=== PATIENT | male | born 1955 | race Caucasian/White ===

== ENCOUNTER → 2018-05-10 | Outpatient (CLI) | payer OTHER ==
[~2018-05-10] MED LIST: DOXY-350 PO; HYDR25TAB PO; VENTAER INH
--- NOTE | 2018-05-10 16:34 | REP ---
Chest two views HISTORY: Shortness of breath Comparison: None Parenchymal density is present in the right lower lobe consistent with atelectasis or infiltrate. Small bilateral pleural effusions are present larger on the left than on the right. The heart is normal in size. The pulmonary vasculature is normal in appearance. The bony structure is intact. IMPRESSION: 1. Right lower lobe atelectasis or infiltrate. 2. Small bilateral pleural effusions.
== END ==
LOC: M CLY 15:52
PROVIDERS: ATTEND Nurse Practitioner Family
DX: J98.11 Atelectasis (principal); J90 Pleural effusion, not elsewhere classified

== ENCOUNTER → 2018-05-11 | Outpatient (REF) | payer OTHER ==
[2018-05-11 18:06] LABS: HEMATOCRIT 37.3 % (42.0-52.0); HEMOGLOBIN 11.4 g/dl (13.5-17.5); MEAN CORPUSCULAR HEMOGLOBIN 23.6 pg (27.0-33.0); MEAN CORPUSCULAR HGB CONC 30.6 g/dl (32.0-36.5); MEAN CORPUSCULAR VOLUME 77.1 fl (80.0-96.0); PLATELET COUNT, AUTOMATED 205 10^3/uL (150-450); RED BLOOD COUNT 4.84 10^6/uL (4.30-6.10)
[2018-05-11 18:12] LABS: ALBUMIN 2.8 GM/DL (3.2-5.2); ALT/SGPT 28 U/L (12-78); BILIRUBIN,TOTAL 0.7 MG/DL (0.2-1.0); BLOOD UREA NITROGEN 11 MG/DL (7-18); CARBON DIOXIDE LEVEL 27 MEQ/L (21-32); CHLORIDE LEVEL 100 MEQ/L (98-107); CHOLESTEROL LEVEL 106 MG/DL (<200); CHOLESTEROL RISK RATIO 5.888 (<5); CREATININE FOR GFR 0.63 MG/DL (0.70-1.30); GLOMERULAR FILTRATION RATE > 60.0 (>49); GLUCOSE, FASTING 105 MG/DL (70-100); HDL CHOLESTEROL 18 MG/DL (>40); LDL CHOLESTEROL 54 MG/DL (<100); NON-HDL-C 88 MG/DL; SODIUM LEVEL 137 MEQ/L (136-145); TOTAL PROTEIN 5.5 GM/DL (6.4-8.2); TRIGLYCERIDES LEVEL 170 MG/DL (<150)
[2018-05-11 18:28] LABS: WHITE BLOOD COUNT 1.4 10^3/uL (4.0-10.0)
[2018-05-11 18:37] LABS: MALB URINE SIEMENS 24.8 MG/L; MAU/CREAT RATIO 11.2 MCG/MG (0.0-30.0)
[2018-05-11 18:40] LABS: HEMOGLOBIN A1c 5.1 %
[2018-05-11 18:58] LABS: ATYPICAL LYMPH 11 % (0-5); BASOPHILS 1 % (0-4); EOSINOPHILS 1 % (0-5); LYMPHOCYTES 1 % (16-52); MONOCYTES 33 % (0-8); NEUTROPHILS 44 % (35-75); PLATELET ESTIMATE NORMAL (NORMAL)
[2018-05-11 18:59] LABS: HYPOCHROMASIA 1+; POLYCHROMASIA 2+
== END ==
LOC: M SFHCCLAY 11:05
PROVIDERS: ATTEND Nurse Practitioner Family
DX: I10 Essential (primary) hypertension (principal); E11.9 Type 2 diabetes mellitus without complications; E78.49 Other hyperlipidemia; R63.4 Abnormal weight loss

== ENCOUNTER 2018-05-19 10:32 | Inpatient (IN) | payer OTHER ==
[2018-05-19] VITALS (16 sets, daily range): BP systolic 101–144; BP diastolic 52–87
[~2018-05-19] VITALS: Ht 157.5 cm; Wt 78.8 kg
[~2018-05-19 10:32] MED LIST changes: -DOXY-350 PO; +HEPARIN SOD (PORCINE) 5000 UNITS/ML VIAL SC SCH; -HYDR25TAB PO; -VENTAER INH
[2018-05-19] MEDS ORDERED: KCL 20MEQ IN D5/NS 1000ML 1,000 ML IV SCH (10:50)
[2018-05-19] MEDS ORDERED: LEVALBUTEROL 1.25 MG/0.5 ML CONCENTRATE NEB NEB PRN (11:00)
[2018-05-19] MEDS ORDERED: ONDANSETRON 4MG/2ML VIAL (J2405) IV PRN (11:00)
[2018-05-19 11:22] LABS: ABG BASE EXCESS 1.6 (-2.0-2.0); ABG O2 SATURATION 93.5 % (95.0-99.0); ABG PARTIAL PRESSURE CO2 35.2 mmHg (35.0-45.0); ABG PARTIAL PRESSURE O2 69.6 mmHg (75.0-100.0); ABG STANDARD HCO3 25.8 MEQ/L (22.0-26.0); ABG TOTAL CO2 26.1 MEQ/L (23.0-31.0); ABG pH (ARTERIAL) 7.469 UNITS (7.350-7.450)
[2018-05-19 11:23] LABS: HEMATOCRIT 39.5 % (42.0-52.0); HEMOGLOBIN 12.2 g/dl (13.5-17.5); MEAN CORPUSCULAR HEMOGLOBIN 23.7 pg (27.0-33.0); MEAN CORPUSCULAR HGB CONC 30.9 g/dl (32.0-36.5); MEAN CORPUSCULAR VOLUME 76.7 fl (80.0-96.0); PLATELET COUNT, AUTOMATED 227 10^3/uL (150-450); RED BLOOD COUNT 5.15 10^6/uL (4.30-6.10)
[2018-05-19] MEDS ORDERED: METOPROLOL 5 MG/5 ML VIAL IV STA (11:24)
[2018-05-19] MEDS ORDERED: METOPROLOL 5 MG/5 ML VIAL As Ordered ONE (11:24)
[2018-05-19] MEDS ORDERED: VENTAER INH (11:29)
[2018-05-19] MEDS ORDERED: HYDR25TAB PO (11:29)
[2018-05-19] MEDS ORDERED: DOXY-350 PO (11:29)
[2018-05-19] MEDS ORDERED: ISOVUE-370 76% 100ML VIAL (Q9967) As Ordered ONE (11:41)
[2018-05-19] MEDS ORDERED: dexameTHASONE 20 MG/5 ML VIAL (J1100) IV ONE (11:45)
[2018-05-19] MEDS ORDERED: D5W/0.45% SODIUM CHLORIDE 1,000 ML IV SCH (11:45)
[2018-05-19 11:50] LABS: ALT/SGPT 22 U/L (12-78); BILIRUBIN,TOTAL 0.8 MG/DL (0.2-1.0); BLOOD UREA NITROGEN 18 MG/DL (7-18); CALCIUM LEVEL 10.7 MG/DL (8.8-10.2); CARBON DIOXIDE LEVEL 25 MEQ/L (21-32); CHLORIDE LEVEL 100 MEQ/L (98-107); CHOLESTEROL LEVEL 96 MG/DL (< 200); CPK CREATINE PHOSPHOKINASE 20 U/L (39-308); CREATININE FOR GFR 0.79 MG/DL (0.70-1.30); FREE THYROXINE INDEX 5.3 % (1.4-3.8); GLOMERULAR FILTRATION RATE > 60.0 (>49); GLUCOSE, FASTING 113 MG/DL (70-100); LDH LACTATE DEHYDROGENASE 320 U/L (87-241); NT-PRO BNP 856 PG/ML (<125); POTASSIUM SERUM 4.8 MEQ/L (3.5-5.1); SODIUM LEVEL 136 MEQ/L (136-145); T UPTAKE 38 % (33-40); THYROID STIMULATING HORMONE 0.043 uIU/ML (0.358-3.740); THYROXINE (T4) 13.9 UG/DL (4.5-12.0); TOTAL PROTEIN 5.6 GM/DL (6.4-8.2); TRIGLYCERIDES LEVEL 144 MG/DL (<150); URIC ACID 7.4 MG/DL (3.5-7.2)
[2018-05-19] MEDS ORDERED: diltiaZEM 125 MG in NS 100 ML IV SCH (12:00)
[2018-05-19] MEDS ORDERED: LIDOCAINE 1% MDV 20ML VIAL As Ordered ONE (12:11)
--- NOTE | 2018-05-19 12:25 | HPE ---
DATE OF ADMISSION: 05/19/2018 Mr. Cabrera is a 63-year-old white male whose medical difficulties began the second the week in April. Prior to that time, he had felt well and, in fact, had left on a road trip from [place] to [place] and then back up the [facility] in order to avoid the cold weather. At the beginning of the second week in April, he started noting that he was having decreased energy and some dyspnea on exertion. He eventually went to a small hospital in [place], [place] ([facility]) where a chest x-ray was done. He was told he had pneumonia. A chest CT scan was also done to rule out PE which showed significant abnormalities that will be dictated below. At that point, he was transferred to the [facility] in [place] where he reports he was seen by a top screw. He had a thoracentesis done on the right side where 2 liters of fluid was drained. He did feel better after the procedure. He was hospitalized 04/27/2018 to 04/30/2018 and was treated with antibiotics in addition to having the thoracentesis. He reports that he had been told by them that the next procedure would likely be bronchoscopy and he thinks that they felt he was going to stay in the area but he decided to drive home because, if any treatment was needed, he would want to undergo that in this area. He had been told that there was a possibility it was lymphoma. Not tool long after his discharge from the hospital, he started noting inspiratory stridor and worsening shortness of breath. He also continued to note weakness. He now feels he can only walk a few feet. He started having difficulties eating as he gags on any food. He has, therefore, started eating a soft diet consisting of substances like yogurt and applesauce. It is difficult to tell whether he has had any weight loss as he had weighed over 200 pounds 3 months ago, but then went on a "water diet" in an attempt to intentionally lose weight. He has had no night sweats. He cannot lie flat in bed but he can tolerate lying on his left side. No lower extremity edema. No history of deep venous thrombosis. No fevers or chills. Henrik has felt so weak that he got a cane from his [id number] and has been using it this past week. Just this week he was contacted by them and told that the pleural fluid was nondiagnostic. PAST MEDICAL HISTORY: 1. Hypertension. 2. Diabetes mellitus type 2. 3. History of pipe/cigar usage. MEDICATIONS: - thiazide 25 mg by mouth daily - Ventolin MDI two puffs every 4 hour as needed - doxycycline 100 mg by mouth twice a day ALLERGIES: No known drug allergies. FAMILY HISTORY: His mother at age 74 of emphysema. She was a smoker. His father is not alive. He does not know of any significant medical history that his father had. He has a 62-year-old sister with no significant medical problems. SOCIAL HISTORY: Henrik is a former smoker having smoked a little over five pipes or cigars a day for 11 years. He quit in October of 2016. He does not chew tobacco. No street drug use history. He does not drink alcohol. He lives alone. He has no pets; his dogs a couple of years ago. 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 No known exposure to pulmonary toxins such as dust, gas, fumes, or asbestos. REVIEW OF SYSTEMS: Notable for weight loss that is at least, in part, volitional but may also have a nonvolitional part. No fevers, chills, weight gain or night sweats. HEENT: Notable for stridor for the past 3 weeks. Denies rhinitis, sinus difficulties or postnasal drip. Denies frequent sore throats or hoarseness. No hearing or visual complaints. CARDIOVASCULAR: Notable for inability to lie flat but he can lie on his left side. Denies chest pain or pressure. No history of frequent palpitations. Denies orthopnea or paroxysmal nocturnal dyspnea (PND). PULMONARY: History per present illness (HPI). GI: Denies nausea, emesis, abdominal pain, or change in bowel habits. No history of significant reflux disease. He has recently noted difficulty swallowing. : Notable for nocturia. ENDOCRINE: Denies intolerance to heat or cold. No significant or unusual hair loss. HEMATOLOGIC: Denies bleeding disorder, clotting disorder or easy bruisability. No history of deep venous thrombosis (DVT) or pulmonary embolus (PE). NEUROLOGIC: Notable for lack of energy. Denies history of seizure or stroke. DERMATOLOGIC: No history of eczema, psoriasis or significant rash. New scalp lesions. PSYCHIATRIC: Per the past medical history, otherwise, no established diagnosis. ALLERGIES/IMMUNOLOGY: No known environmental allergies. MUSCULOSKELETAL: Notable for recent use of cane. Denies myalgias, arthralgias or joint swelling. Denies lower extremity edema. PHYSICAL EXAMINATION: GENERAL: Henrik is sitting on the examination room chair in mild respiratory distress. He appears well-developed, well-nourished. He can only complete short word sentences. He coughs on occasion throughout the evaluation. Affect is appropriate. He can move slowly to the examination room table. Perhaps a slight facial droop on the left. VITAL SIGNS: BP: 124/74 Pulse: 130 O2SatR: 96ra Ht: 61.25" 5'1.25" Wt: 175lb HEENT: Anicteric. Nares: Patent bilaterally. No turbinate edema or discharge. Normal nasal mucosa. Septum appears midline. Oropharynx: Clear, no lesions. No evidence of drainage in the posterior pharynx. Mallampati I. Face is normal. Moist mucosa. Normal dentition. Gums are free of disease. NECK: Supple. Without thyromegaly or masses. Trachea is midline. LYMPHS: No significant cervical or supraclavicular lymphadenopathy. CHEST: Normal size and shape. LUNGS: Symmetric excursion. Mildly diminished air entry. No wheeze or crackles and tidal excursion with scattered end expiratory wheezes forced maneuver. There were inspiratory rhonchi on tidal excursion. Normal I:E with prolongation on forced maneuver. No accessory muscle use or retractions. Absent breath sounds at the bases bilaterally with dullness to percussion over those areas. CARDIOVASCULAR: Tachycardic with a normal S1 and S2. No murmur, rub or gallop appreciated. ABDOMEN: Normoactive bowel sounds. Soft, nontender, nondistended. No hepatosplenomegaly or masses are appreciated on suboptimal examination done in a sitting position. EXTREMITIES: No clubbing, cyanosis or edema. No calf tenderness. Palpable pedal pulses bilaterally. MUSCULOSKELETAL: He ambulated slowly with a cane and exhibits muscle strength and tone. SKIN: He has a scalp rash /lesions. No other obvious rashes on extremities or face. NEUROLOGIC: Alert, awake and oriented times three. LABORATORY DATA: Spirometry: Spirometry obtained today to objectively evaluate lung mechanics in a person with an abnormal chest CT scan and shortness of breath showed a nonspecific decrease in FVC with an FVC of 1.48 liters (44%), and a FEV1 of 1.07 liters (42%). FEV1/FVC ration was normal at 72%. I was unable to comment on his inspiratory flow volume loop. However, looking at several blows, the inspiratory loop was not plateaued. I reviewed his chest x-ray as well as the report from 05/10/2018. That x-ray showed normal appearing cardiac silhouette and pulmonary vascular shadows. There appeared to be hilar adenopathy. There are bilateral small pleural effusions. Perhaps some right-sided atelectasis. What is most concerning is a narrowing of the trachea near the anshu that appears to be extrinsic. 1. His chest CT report from [facility] on 04/27/2018 states there is large bulky conglomerate lymph nodes in the mediastinum and superior abdomen, with otherwise, bulky lymphadenopathy throughout the chest, abdomen, and pelvis, highly concerning for malignancy such as lymphoma or metastatic disease. 2. Mass-like soft tissue density in the lower trachea and proximal bronchi, which could represent involvement by lymphoma or an endobronchial malignancy. 3. Moderate right and small left pleural effusions with adjacent massive atelectasis. The right pleural effusion is somewhat loculated. Superimposed pneumonia in the atelectatic lung cannot be excluded. IMPRESSION: 1. Stridor and likely extensive compression of the trachea: He has a high risk airway. 2. Other nonspecific abnormal findings of the lung field. Based on the description, findings are very concerning for a lymphoma or other metastatic malignancy. 3. Dyspnea: This is likely secondary to the narrowed trachea and lymphadenopathy in the chest. 4. Cough: I suspect this is secondary to extrinsic compression of his airway. 5. Weakness: This is likely related to the systemic process that is causing his adenopathy. 6. Personal history of nicotine dependence. He has an 11-year history of cigar and pipe usage. RECOMMENDATION: 1. It was apparent that this was an emergent admission to the hospital. 2. I discussed Mr. Cabrera with Dr. Shah who graciously saw him in clinic and agreed he needed an emergent admission. 3. Mr. Cabrera will be admitted to the intensive care unit. 4. There is concern that this is secondary to lymphoma and that he will need emergent chemotherapy which we cannot provide. However, it is not felt that his airway was stable enough to transfer him, at this point, to [place]. PATT
--- NOTE | 2018-05-19 12:45 | REP ---
CT STUDY OF THE CHEST WITH IV CONTRAST: HISTORY: Stridorous breathing. Tracheal compression on chest x-ray. Comparison is made with chest x-ray from May 10, 2018. CT CONTRAST DOSE: 100 mL of intravenous Isovue [address] FINDINGS: There are bilateral pleural effusions. These are small to moderate in size. There is fairly bulky mediastinal lymphadenopathy. This is most pronounced in the middle mediastinum and nearly surrounds the trachea producing extrinsic narrowing. The tracheal air column is further narrowed by the presence of moderate mural thickening along the anterior and anterolateral eubanks of the trachea above the anshu. This process extends in the anterior wall of the mainstem bronchi bilaterally and these airways are somewhat narrowed as well. There is bulky subcarinal lymphadenopathy. Anterior mediastinal and AP window region lymphadenopathy is seen. The largest juanito area in the mediastinum as in the subcarinal region where there is 6 x 4 cm juanito mass. There is extensive vascular calcification along the course of the left coronary artery. There is also bilateral supraclavicular lymphadenopathy. There is mild axillary lymphadenopathy on the left. No bony destructive lesion is seen. There is retrocrural and upper abdominal lymphadenopathy. No pericardial effusion is seen. IMPRESSION: Bulky malignant-appearing lymphadenopathy in the middle mediastinum producing extrinsic narrowing of the trachea, which is compounded by involvement of the tracheal and central bronchial eubanks being infiltrated and thickened as well. There are small to moderate bilateral pleural effusions. Extrathoracic adenopathy is seen as well. Findings were reviewed at the workstation with the referring provider Dr. Shah at the time of the study. Electronically Signed by Gamaliel Yan MD 05/19/2018 06:05 P
[2018-05-19 12:48] LABS: ATYPICAL LYMPH 2 % (0-5); BASOPHILS 2 % (0-4); EOSINOPHILS 2 % (0-5); LYMPHOCYTES 9 % (16-52); MONOCYTES 50 % (0-8); NEUTROPHILS 31 % (35-75)
[2018-05-19 12:49] LABS: GIANT PLATELETS 1+; MICROCYTOSIS 1+; PLATELET ESTIMATE NORMAL (NORMAL); POLYCHROMASIA 1+
--- NOTE | 2018-05-19 12:50 | REP ---
CT ABDOMEN AND PELVIS WITH IV BUT WITHOUT ORAL CONTRAST: HISTORY: Question lymphoma. Left inguinal adenopathy. Adenopathy in the chest with stridorous breathing and tracheal narrowing on radiographs. CT CONTRAST DOSE: 100 mL of intravenous Isovue 370. No comparison study. CT FINDINGS: Moderate bilateral pleural effusions. There is widespread adenopathy including adenopathy in the epicardial fat and retrocrural lymphadenopathy. There is very bulky confluent adenopathy in the celiac axis region of the upper abdomen centrally measuring up to 8.4 cm in greatest transverse dimension. This adenopathy is contiguous with the medial wall of the upper stomach and the posterior aspect of the left lobe of the liver. There is a small right adrenal nodule. There is left periaortic lymphadenopathy. No definite pancreatic involvement. Gallbladder is unremarkable. There is streaky fibrosis in the retroperitoneal fat to posterior to the descending duodenum. The appendix is seen in Morison's pouch next to the duodenum and medial to the liver but it is not inflamed or abnormal. No renal mass lesion or hydronephrosis is seen. The spleen is enlarged measuring 14.8 cm in greatest dimension. No focal splenic lesion is seen. There is edema and/or fluid along Gerota's fascia and in the pericolic gutters bilaterally. There is a tumor deposit in the left iliac fossa of which measures 3.3 cm in greatest diameter. No other obvious significant peritoneal implants. A small quantity of fluid is visible in the pelvic reflections. Prostate and seminal vesicles and urinary bladder are unremarkable. There are innumerable subcutaneous nodules in the extra abdominal soft tissue with multiple musculoskeletal nodules along the left flank. These are compatible with soft tissue metastases. There is adenopathy in the left groin. The largest left groin lymph node measures 3.3 cm. No bony destructive lesion is seen. IMPRESSION: There is bulky celiac axis and retroperitoneal lymphadenopathy. Minimal ascites. Left periaortic and left iliac fossa adenopathy. There are widespread subcutaneous metastatic nodules and some intramuscular nodules are seen in the left flank. The spleen is enlarged and homogeneous. Principal differential possibilities include advanced lymphoma, small cell carcinoma, or widespread metastatic carcinoma. Electronically Signed by Gamaliel Yan MD 05/19/2018 06:06 P
[2018-05-19 12:54] LABS: CK-MB VALUE MASS < 1.0 NG/ML (<3.6); TROPONIN I < 0.02 NG/ML (< 0.10)
[2018-05-19] MEDS ORDERED: LEVALBUTEROL 1.25 MG/0.5 ML CONCENTRATE NEB NEB SCH (14:00)
[2018-05-19] MEDS ORDERED: ALLOPURINOL 100 MG TAB PO SCH (14:00)
--- NOTE | 2018-05-19 14:09 | REP ---
Duplex extremity venous ultrasound: Bilateral lower extremities. History: Leg swelling. Question DVT. Findings: The deep veins are anechoic and fully compressible from the groin to the popliteal fossa in the left and right lower extremity. Color flow imaging is homogeneous. Spectral Doppler interrogation demonstrates intact respiratory variation in flow and normal manual augmentation of flow. There is no evidence of deep vein thrombosis. Impression: Negative bilateral lower extremity duplex venous ultrasound. No evidence of deep vein thrombosis. Multiple hypoechoic nodules are seen in the subcutaneous fat bilaterally. This corresponds to the CT findings of metastatic subcutaneous nodules. Electronically Signed by Gamaliel Yan MD 05/19/2018 01:59 P
[2018-05-19] MEDS ORDERED: NS 1,000 ML IV SCH (14:45)
--- NOTE | 2018-05-19 16:38 | CR ---
DATE OF INPATIENT CONSULTATION: 05/19/2018 REASON FOR CONSULTATION: Diagnosis of lymphoma. HISTORY: Patient was admitted on 05/19/2018. This is a very pleasant 63-year-old male who had originally been seen in a satellite Hospital in [place], [place]. The patient had been complaining of not feeling well, lethargic and began to notice that he became short of breath. He had gone into the emergency room, was initially diagnosed as pneumonia but followup CT scan had shown a pleural effusion. The patient states that he had it tapped off and that the doctors there had recommended that he stay for further diagnostic procedures, biopsies. At this time, the patient stated that he was only on a trip to [place] and that he preferred to come back home to [place] especially since the weather had given him a window to do so. He arrived here at [facility] emergency room feeling incredibly shortness of breath, weak, fatigued. A chest CT was done in the emergency room with concern for possible pulmonary embolism. At that time, the patient had shown bulky lymphadenopathy in the middle mediastinum producing narrowing of the trachea. The central bronchial eubanks being infiltrated and thickened as well and small to moderate bilateral pleural effusions. The patient had also shown extrathoracic lymphadenopathy. The patient showed bilateral supraclavicular lymphadenopathy as well as mild axillary. No bony destruction was noted. There was also retrocrural and upper abdominal lymphadenopathy. Concern was for aggressive lymphoma. CT scan of the abdomen and pelvis had shown innumerable subcutaneous nodules in the abdominal soft tissue with multiple musculoskeletal nodules on the left flank. Adenopathy in the left groin with left groin measuring 3 x 3 cm. No bony lesions. His bulky celiac axis and retroperitoneal lymphadenopathy, left periaortic and left iliac fossa and widespread subcutaneous metastatic nodules and some intramuscular nodules were seen on the left flank. The spleen is enlarged and homogeneous. PAST MEDICAL HISTORY: Includes essential hypertension, type 2 diabetes. CURRENT MEDICATIONS: - Dyazide 25 mg by mouth daily - Ventolin 2 puffs by mouth every 4 hour as needed - doxycycline 100 mg by mouth twice a day ALLERGIES: No known drug allergies. FAMILY HISTORY: Mother at the age of 74 due to COPD. Father is . He has one sister with no health problems. SOCIAL HISTORY: He is currently a former smoker. Stopped in 2017. Was a pipe and cigar smoker. Negative for EtOH. 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 No occupational exposures. REVIEW OF SYSTEMS: He states that he has been getting some weight loss over the past few weeks; that he began to feel weak, tired and that his legs became very rubbery. He denies any night sweats. No postprandial fullness. And began to develop on the skin, several nodules, predominantly in the scalp. He states that he has had some skin lesions on the lower extremities but those were present for about 5 years. The areas in the scalp had cropped up over the past week. HEENT: He does have glasses for correction of vision. He denies any history of any rhinitis, sinusitis or postnasal drip. Chest: He has had increasing shortness of breath and dyspnea on exertion. Cardiovascular: He states that he was unable to lie flat. No hemoptysis. No signs of any sputum or phlegm production. GI: Negative for nausea, vomiting, diarrhea, constipation, change in color or caliber of his stool. : No CVA tenderness. Endocrine: No heat or cold intolerance or tremor problems. He has had no history of any bleeding disorders. PHYSICAL EXAMINATION: The patient has an ECOG of about 2-3 over 4. Weight is 78 kg. Height is 157 cm. BSA is 1.89, BMI is 3.18. BSA is 1.89 cm. Pulse is 114, respiratory rate is about 22, BP is 143/85, pulse oximetry is 97. He has a temperature of 98.8. HEENT: Normocephalic and atraumatic. PERRL. EOMI. Sclerae is white, nonicteric. Oropharynx is otherwise clear. Neck: Some shotty adenopathy. Chest: Decreased breath sounds at the bases. Cardiovascular: S1, S2 appreciated with no murmurs. His abdomen is minimally globoid, no freely flowing ascites. No hepatosplenomegaly appreciated. Extremities: Show no cyanosis, no clubbing or any edema. He has supraclavicular area. No shoddy adenopathy is appreciated. Skin: On his skin lesions, the patient has in the scalp area multiple lesions with heaped up nodular-like throughout the entire his scalp area abutting up and extending into the hairline anteriorly. The patient has alopecia areata. He has no sign of any skin lesions on the trunk, neck, anterior chest. He has small scab like lesions on the lower extremities, but no signs of any purpura or uticaria. The skin lesions that are nodular and tumor-like do not abigail on pressure. LABORATORY: On his laboratory examinations, his sodium is 136, potassium is 4.8, chloride 100, CO2 25, BUN of 18, creatinine 0.79, fasting glucose 113, uric acid 7.4, calcium 10.7, phosphorus of 4, total bilirubin is 0.8, AST of 35, ALT 22, alkaline phosphatase 123, LDH of 320, albumin is 3.0, triglycerides of 144, cholesterol 96, TSH is 0.043, T4 is 5.3 and thyroxine is 13.9. T3 uptake is 38. On the hematology, WBC count is 1, hemoglobin is 12.2 over 39.5, MCV of 76.7, RDW of 18.1, platelets of 227 and neutrophils 31, lymphocytes are 9, monocytes are 50. Pathology: Fine needle aspiration of the lymph node was done with preliminary report showing possible lymphoma. 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 PLAN: The patient needs to be transferred due to multidisciplinary approach that he will need not only for the lymphoma but to monitor for the thyroid as well as to avoid tumor lysis syndrome with renal manifestations. A typification of the lymphoma will need to be done. The patient in the meantime will be given allopurinol. Rasburicase is not available on our hospital formulary as of yet. Patient at this particular junction is stable for transfer and we would be more than happy to follow this gentleman on an outpatient basis when his condition becomes stabilized. Flow cytometry, cytogenetics, bone marrow biopsy will all be done to the transferring institution. The patient had a flow cytometry done on his pleural fluid in [place] which had shown a B-cell lymphoma without any subtype typification or genetic analysis available to us at this time. The patient shows no signs of any renal insufficiency, hypophosphatemia, kalemia, or calcemia currently. LDH is 320 which is up from over 150 from [place].
--- NOTE | 2018-05-19 18:09 | REP ---
ULTRASOUND-GUIDED LEFT GROIN LYMPH NODE BIOPSY Procedure was performed under the direct supervision of Dr. Yan. The patient has a history of a 3.3 cm lymph node in the left groin seen on a previous CT scan performed earlier today. The risks and benefits of the procedure were explained to the patient and informed consent was obtained. The left groin lymph node was localized using ultrasound guidance. The skin was prepped and draped in a sterile fashion. 1% lidocaine was used as a local anesthetic. Using ultrasound guidance a 19/20 gauge coaxial needle biopsy system was inserted and advanced into the lymph node. 11 core biopsy samples were obtained and sent to lab. The patient tolerated the procedure well and there were no immediate complications. Reviewed by MARGARET Kuhn 05/19/2018 04:19 P Electronically Signed by Gamaliel Yan MD 05/19/2018 06:00 P
--- NOTE | 2018-05-19 20:07 | DS.PDOC ---
Discharge Summary General Date of Admission May 19, 2018 at 10:44 Date of Discharge 05/19/18 Discharge Summary PROCEDURES PERFORMED DURING STAY: Lymph node FNA biopsy ADMITTING DIAGNOSES: 1. Diffuse adenopathy DISCHARGE DIAGNOSES: 1. Diffuse adenopathy likely lymphoma COMPLICATIONS/CHIEF COMPLAINT: Tracheal stenosis HISTORY OF PRESENT ILLNESS: 63-year-old white male whose medical difficulties b nathaniel the second the week in April. Prior to that time, he had felt well and, in fact, had left on a road trip from [place] to [place] and then back up the [facility] in order to avoid the cold weather. At the beginning of the second week in April, he started noting that he was having decreased energy and some dyspnea on exertion. He eventually went to a [facility] in [place], [place] ([facility]) where a chest x-ray was done. He was told he had pneumonia. However, they followed that with a chest CT scan which showed significant abnormalities that will be dictated below. At that point, he was transferred to the [facility] in [place] where he reports he was seen by a load blocker. He had a thoracentesis done on the right side where 2 liters of fluid was drained. He did feel better after the procedure. Just this week he was contacted by them and told that the pleural fluid was nondiagnostic but flow cytometry did show atypical lymphocytes concern for possible B cell lymphoma. He was hospitalized 04/27/2018 to 04/30/2018 and was treated with antibiotics in addition to having the thoracentesis. He reports that he had been told by them that the next procedure would likely be bronchoscopy and he thinks that they felt he was going to stay in the area but he decided to drive home because, if any treatment was needed, he would want to undergo that in this area. He had been told that there was a possibility it was lymphoma. Not tool long after his discharge from the hospital, he started noting inspiratory stridor and worsening shortness of breath. He also continued to note weakness. He now feels he can only walk feet. He started having difficulties eating as he gags on any food. He has therefore, started eating a soft diet consisting of substances like yogurt and applesauce. It is difficult to tell whether he has had any weight loss as he had weighed over 200 pounds 3 months ago, but then went on a "water diet" in an attempt to intentionally lose weight. He has had no night sweats. He cannot lie flat in bed but he can tolerate lying on his left side. He has noticed new LE edema, was started on HCTZ by his primary. He also reports a new rash noted on scalp in the past week, non pruritic but tender. No fevers or chills. Henrik has felt so weak that he got a cane from his [id number] and has been using it this past week. HOSPITAL COURSE: Patient was admitted to MICU. He was noted to be tachycardic with heart rate in 150's, he was normotensive, denied any chest pain, palpitations or increased SOB. He was satting 90% on RA. Patient was noted to be going in and out of atrial flutter. Was given metoprolol 2.5mg IVP with improvement in his heart rate to 100-110's. He was placed on nasal cannula supplementation at 2L/min with improvement in O2 sats. He was also started on IVF with normal saline and allopurinol (no rasburicase available) for pretreatment given risk tumor lysis syndrome. He was also given decadron 4mg IV. Patient also had CT chest, abd/pelvis. He then had a US guided left inguinal lymph node FNA biopsy with prelim pathology results consistent with lymphoma. Patient also had LE duplex done which was negative for DVT. DISCHARGE MEDICATIONS: Please see below. ALLERGIES: Please see below. PHYSICAL EXAMINATION ON DISCHARGE: VITAL SIGNS: Please see below. GENERAL: He appears well-developed, well-nourished. 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 HEENT: Anicteric. Nares: Patent bilaterally. No turbinate edema or discharge. Normal nasal mucosa. Septum appears midline. Oropharynx: Clear, no wheezes. No evidence of drainage in the posterior pharynx. Mallampati I. Face is normal. Moist mucosa. Normal dentition. Gums are free of disease. NECK: Supple. Without thyromegaly or masses. Trachea is midline. LYMPHS: Palpable left axillary adenopathy. Palpable right and left inguinal adenopathy, more prominent on the left side. CHEST: Normal size and shape. LUNGS: Symmetric excursion. Mildly diminished air entry. CARDIOVASCULAR: Tachycardic with a normal S1 and S2. No murmur, rub or gallop appreciated. ABDOMEN: Normoactive bowel sounds. Soft, nontender, nondistended. No hepatosplenomegaly EXTREMITIES: Pitting edema bilateral lower extremities with left greater than right MUSCULOSKELETAL: He ambulated slowly with a cane and exhibits muscle strength and tone. SKIN: Erythematous maculopapular rash with some scaling on scalp. NEUROLOGIC: Alert, awake and oriented times three. LABORATORY DATA: Please see below. IMAGING: CT chest- bulky malignant appearing lymphadenopathy in middle mediastinum producing extrinsic narrowing of trachea which is compounded by involvement of the trachea and central bronchial eubanks being infiltrated and thickened. Small to moderate bilateral pleural effusions. No pericardial effusion. Mild left axillary adenopathy. NO thyroid nodules or enlargement. There also appears some dilation of right ventricle CT Abd/pelvis- Bulky celiac axis and retroperitoneal lymphadenopathy. Minimal ascites. Left periaortic and left iliac fossa adenopathy. There are widespread subcutaneous metastatic nodules and some intramuscular nodules in left flank. Spleen is enlarged and homogenous. LE Duplex- negative for DVT bilateral lower extremities from groin to popliteal fossa. PROGNOSIS: Fair ACTIVITY: As tolerated DIET: NPO DISCHARGE PLAN: Patient is a 63 yo male with recent diagnosis of new pleural effusions and diffuse adenopathy in mediastinum and abdomen seen on imaging in [place], s/p therapeutic thoracentesis on the right. He presented with increased DUFFY. CT chest shows tracheal narrowing due to extrinsic compression of bulky mediastinal adenopathy as well as thickening of trachea and central bronchi. Patient had left inguinal lymph node biopsy with prelim pathology consistent with lymphoma. Of note patient also with new onset Atrial flutter and hyperthyro idism with increased BNP and evidence of dilated RV on CT consistent with possible fluid overload possibly secondary to hyperthyroidism. Patient will likely need further evaluation including possible bone marrow biopsy. He was noted to have neutropenia on admission, was placed on isolation. Will need to follow final pathology results and flow cytometry. He will likely need induction chemotherapy for high grade lymphoma which is contributing to some respiratory symptoms from extrinsic compression as well as likely airway involvement. He will need close monitoring and pre-treatment for tumor lysis syndrome. Patient will also need further work-up for his new dx of hyperthyroidism likely contributing to his new atrial flutter and evidence of CHF. He will therefore be transferred to a facility with inpatient oncology unit. DISPOSITION: er To Acute Hosp. DISCHARGE INSTRUCTIONS: 1. Follow-up pathology and flow cytometry results ITEMS TO FOLLOWUP ON ON OUTPATIENT: 1. Follow-up pathology and flow cytometry results 2. Follow-up thyroid binding globulin DISCHARGE CONDITION: Stable TIME SPENT ON DISCHARGE: Greater than 25 minutes. Vital Signs/I&Os Vital Signs Date Time Temp Pulse Resp B/P (MAP) Pulse Ox O2 Delivery O2 Flow Rate FiO2 05/19/18 16:33 98.9 110 24 136/86 (103) 98 Nasal Cannula 3.0 Laboratory Data Labs 24H Laboratory Tests 2 05/19/18 11:06: 05/19/18 11:08: White Blood Count 1.0L, Red Blood Count 5.15, Hemoglobin 12.2L, Hematocrit 39.5L, Mean Corpuscular Volume 76.7L, Mean Corpuscular Hemoglobin 23.7L, Mean Corpuscular Hemoglobin Concent 30.9L, Red Cell Distribution Width 18.1H, Platelet Count 227, Neutrophils # (Auto) , Lymphocytes # (Auto) , Nucleated Red Blood Cells % (auto) 0.0, Neutrophils 31L, Band Neutrophils 4, Lymphocytes (Manual) 9L, Monocytes (Manual) 50H, Eosinophils (Manual) 2, Basophils (Manual) 2, Atypical Lymphocytes 2, Platelet Estimate NORMAL, Giant Platelets 1+, Polychromasia 1+, Microcytosis 1+, Anion Gap 11, Glomerular Filtration Rate > 60.0, Blood Urea Nitrogen 18, Creatinine 0.79, Sodium Level 136, Potassium Level 4.8, Chloride Level 100, Carbon Dioxide Level 25, Calcium Level 10.7H, Phosphorus Level 4.0, Aspartate Amino Transf (AST/SGOT) 35, Alanine Aminotransferase (ALT/SGPT) 22, Lactate Dehydrogenase 320H, Total Creatine Kinase 20L, Alkaline Phosphatase 123H, Total Bilirubin 0.8, Triglycerides Level 144, Cholesterol Level 96, Uric Acid 7.4H, Total Protein 5.6L, Albumin 3.0L, Creatine Kinase MB < 1.0, Creatine Kinase MB Relative Index 5.00H, Troponin I < 0.02, GE-Hsm-J-Type Natriuretic Peptide 856H, Albumin/Globulin Ratio 1.15, Thyroid Stimulating Hormone (TSH) 0.043L, Free Thyroxine Index 5.3H, Thyroxine (T4) 13.9H, Triiodothyronine (T3) Uptake 38 05/19/18 11:15: Blood Gas Bicarbonate Standard 25.8, Arterial Blood pH 7.469H, Arterial Blood Partial Pressure CO2 35.2, Arterial Blood Partial Pressure O2 69.6L, Arterial Blood Total CO2 26.1, Arterial Blood HCO3 25.0, Arterial Blood Base Excess 1.6, Arterial Blood Oxygen Saturation 93.5L CBC/BMP Laboratory Tests 05/19/18 11:08 Red Blood Count 5.15, Mean Corpuscular Volume 76.7 L, Mean Corpuscular Hemoglobin 23.7 L, Mean Corpuscular Hemoglobin Concent 30.9 L, Red Cell Distribution Width 18.1 H, Neutrophils # (Auto) , Lymphocytes # (Auto) , Calcium Level 10.7 H, Phosphorus Level 4.0, Aspartate Amino Transf (AST/SGOT) 35, Alanine Aminotransferase (ALT/SGPT) 22, Lactate Dehydrogenase 320 H, Total Creatine Kinase 20 L, Alkaline Phosphatase 123 H, Total Bilirubin 0.8, Triglycerides Level 144, Cholesterol Level 96, Uric Acid 7.4 H, Total Protein 5.6 L, Albumin 3.0 L Discharge Medications Scheduled PRN Albuterol Sulfate (Ventolin Hfa) 108 Mcg/Act Aer, 2 PUFFS INH Q6H PRN for SHORTNESS OF BREATH, (Reported) Allergies Coded Allergies: No Known Allergies (Unverified , 05/19/18) RICHY QUINTANILLA MD May 19, 2018 20:07
--- NOTE | 2018-05-19 20:30 | ECGEPIP ---
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
--- NOTE | 2018-05-19 20:47 | ECHO ---
DATE OF PROCEDURE:05/19/2018 AGE: 63 GENDER: Male HEIGHT: 62 inches WEIGHT: 175 pounds BODY SURFACE AREA: 1.81 sq m INPATIENT: ICU, room 3206 REFERRING PHYSICIAN: Dr. Mary Hayden INDICATION: Cardiac dysrhythmia. 2D MEASUREMENTS: RV: 2.9 cm LV: 5.1 cm Septum: 1.1 cm Posterior wall: 1.1 cm Aortic root: 3.4 cm LA: 3.2 cm LVEF: 65% DOPPLER MEASUREMENTS: AV: 1.4 m/s LVOT: 1.1 m/s LVOT diameter: 2.0 cm MV-E: 80, A: 60, E/A ratio: 1.4 Early mitral deceleration time: 203 ms PV: 0.95 m/s COMMENTS: Underlying atrial flutter with 2:1 AV response alternating with episodes of sinus rhythm. Intraventricular conduction disturbance. Technically challenging study in light of the patient's body habitus but some diagnostically useful information was still obtained. Normal left ventricular size, wall thickness and wall motion. Normal left atrial size and Doppler assessment of LV diastolic function (when in sinus rhythm). Normal right heart chamber sizes and motion and estimated pulmonary arterial pressure. Normal IVC size at 1.4 cm with normal respiratory collapse against an elevated central venous pressure. Normal-appearing aortic valvular apparatus and leaflet excursion. Normal aortic root size. Normal-appearing mitral valvular apparatus leaflet excursion with no posterior systolic buckling. Normal appearing and functioning tricuspid valve. No apparent intracardiac mass or pericardial effusion.
[2018-06-22] MEDS ORDERED: METO100T5 PO (14:41)
[2018-06-22] MEDS ORDERED: PANT40TA3 PO (14:41)
[2018-06-22] MEDS ORDERED: FURO40TA2 PO (14:41)
[2018-06-22] MEDS ORDERED: DRON40TA PO (14:41)
[2018-06-22] MEDS ORDERED: POTA10CA32 PO (14:41)
[2018-06-22] MEDS ORDERED: ZYLO300T6 PO (14:41)
[2018-06-22] MEDS ORDERED: ONDA8TAB7 PO (15:18)
[2018-06-22] MEDS ORDERED: PRED50TA PO (15:22)
== END 2018-05-19 17:17 | disposition short-term general hospital (02) | DRG 681 ==
LOC: M ICU 10:44
PROVIDERS: ADMIT Thoracic Surgery (Cardiothoracic Vascular Surgery); ATTEND Thoracic Surgery (Cardiothoracic Vascular Surgery)
PROC: 07BJ3ZX Excision of Left Inguinal Lymphatic, Percutaneous Approach, Diagnostic (ICD-10-PCS; principal; 2018-05-19)
DX: C85.90 Non-Hodgkin lymphoma, unspecified, unspecified site (principal); I10 Essential (primary) hypertension; J39.8 Other specified diseases of upper respiratory tract; E11.9 Type 2 diabetes mellitus without complications; Z79.899 Other long term (current) drug therapy; Z87.891 Personal history of nicotine dependence

== ENCOUNTER → 2018-06-20 | Outpatient (REF) | payer OTHER ==
[~2018-06-20] MED LIST changes: +DOXY-350 PO; +DRON40TA PO; +FURO40TA2 PO; -HEPARIN SOD (PORCINE) 5000 UNITS/ML VIAL SC SCH; +HYDR25TAB PO; +METO100T5 PO; +ONDA8TAB7 PO; +PANT40TA3 PO; +POTA10CA32 PO; +PRED50TA PO; +VENTAER INH; +ZYLO300T6 PO
[2018-06-20 12:23] LABS: HEMATOCRIT 34.7 % (42.0-52.0); HEMOGLOBIN 10.5 g/dl (13.5-17.5); MEAN CORPUSCULAR HEMOGLOBIN 24.9 pg (27.0-33.0); MEAN CORPUSCULAR HGB CONC 30.3 g/dl (32.0-36.5); MEAN CORPUSCULAR VOLUME 82.2 fl (80.0-96.0); PLATELET COUNT, AUTOMATED 235 10^3/uL (150-450); RED BLOOD COUNT 4.22 10^6/uL (4.30-6.10); WHITE BLOOD COUNT 5.2 10^3/uL (4.0-10.0)
[2018-06-20 12:50] LABS: ALBUMIN 2.8 GM/DL (3.2-5.2); ALT/SGPT 15 U/L (12-78); BILIRUBIN,TOTAL 0.4 MG/DL (0.2-1.0); BLOOD UREA NITROGEN 11 MG/DL (7-18); CARBON DIOXIDE LEVEL 25 MEQ/L (21-32); CHLORIDE LEVEL 105 MEQ/L (98-107); CREATININE FOR GFR 0.65 MG/DL (0.70-1.30); GLOMERULAR FILTRATION RATE > 60.0 (>49); GLUCOSE, FASTING 127 MG/DL (70-100); MAGNESIUM LEVEL 2.3 MG/DL (1.8-2.4); SODIUM LEVEL 139 MEQ/L (136-145); TOTAL PROTEIN 5.2 GM/DL (6.4-8.2)
== END ==
LOC: M SFHCCLAY 09:50
PROVIDERS: ATTEND Nurse Practitioner Family
DX: I10 Essential (primary) hypertension (principal)

== ENCOUNTER 2018-09-21 08:40 | Inpatient (IN) | payer OTHER ==
[~2018-09-21] VITALS: Ht 157.5 cm; Wt 74.2 kg
[2018-09-21] MEDS ORDERED: LOPR1TAB6 PO (08:48)
[2018-09-21 09:25] LABS: HEMOGLOBIN 8.9 g/dl (13.5-17.5); MEAN CORPUSCULAR HEMOGLOBIN 27.1 pg (27.0-33.0); MEAN CORPUSCULAR HGB CONC 30.7 g/dl (32.0-36.5); MEAN CORPUSCULAR VOLUME 88.4 fl (80.0-96.0); PLATELET COUNT, AUTOMATED 248 10^3/uL (150-450); RED BLOOD COUNT 3.28 10^6/uL (4.30-6.10); WHITE BLOOD COUNT 5.4 10^3/uL (4.0-10.0)
[2018-09-21 09:35] LABS: INR 1.35; PROTHROMBIN TIME 16.9 SECONDS (12.1-14.4)
[2018-09-21 09:53] LABS: LYMPHOCYTES 12 % (16-52); METAMYELOCYTES 3 % (0-0); MONOCYTES 2 % (0-8); MYELOCYTES 2 % (0-0); NEUTROPHILS 76 % (35-75)
[2018-09-21 09:54] LABS: ANISOCYTOSIS 2+; HYPOCHROMASIA 1+; POLYCHROMASIA 1+
[2018-09-21 09:55] LABS: PLATELET ESTIMATE NORMAL (NORMAL)
[2018-09-21 09:57] LABS: ALBUMIN 2.4 GM/DL (3.2-5.2); ALT/SGPT 11 U/L (12-78); BILIRUBIN,DIRECT 0.2 MG/DL (0.0-0.2); BILIRUBIN,TOTAL 0.5 MG/DL (0.2-1.0); BLOOD UREA NITROGEN 21 MG/DL (7-18); CALCIUM LEVEL 7.6 MG/DL (8.8-10.2); CARBON DIOXIDE LEVEL 26 MEQ/L (21-32); CHLORIDE LEVEL 104 MEQ/L (98-107); CPK CREATINE PHOSPHOKINASE 24 U/L (39-308); CREATININE FOR GFR 0.55 MG/DL (0.70-1.30); GLOMERULAR FILTRATION RATE > 60.0 (>49); GLUCOSE, FASTING 105 MG/DL (70-100); MB/CK RELATIVE INDEX 5.83 (< OR =4); NT-PRO BNP 1553 PG/ML (<125); POTASSIUM SERUM 3.9 MEQ/L (3.5-5.1); SODIUM LEVEL 138 MEQ/L (136-145); TOTAL PROTEIN 4.9 GM/DL (6.4-8.2); TROPONIN I 0.03 NG/ML (< 0.10)
[2018-09-21] MEDS ORDERED: FUROSEMIDE 40 MG/4 ML VIAL (J1940) IV ONE (10:00)
[2018-09-21] MEDS ORDERED: ALEV220T22 PO (10:23)
[2018-09-21] MEDS ORDERED: ONDA8TAB7 PO (10:23)
[2018-09-21] MEDS ORDERED: METO100T5 PO (10:23)
[2018-09-21] MEDS ORDERED: ONDANSETRON 4 MG TAB (S0181) PO PRN (10:45)
[2018-09-21] MEDS ORDERED: GLUCAGON FOR INJ 1 MG VIAL (J1610) SC PRN (11:15)
[2018-09-21] MEDS ORDERED: ALBUTEROL 90 MCG/ACT 8GM HFA INHALER INH PRN (11:15)
[2018-09-21] MEDS ORDERED: GLUCOSE 4 GM CHEW TABLET PO PRN (11:15)
[2018-09-21] MEDS ORDERED: DEXTROSE 50% 50 ML SYRINGE IV PRN (11:15)
[2018-09-21] MEDS: HumaLOG INSULIN (NovoLOG) PER UNIT SC SCH ×3 (12:00→20:34)
[2018-09-21] MEDS: FUROSEMIDE 100 MG/10 ML VIAL (J1940) IV SCH ×2 (12:00→18:00)
--- NOTE | 2018-09-21 12:15 | REP ---
CHEST, TWO VIEWS: Two views of the chest are performed and compared to prior study of 05/10/2018. Significant diffuse dense infiltrates are seen throughout the right lung. There is a mild to moderate right effusion. Mild left perihilar infiltrates are seen superiorly and inferiorly. There is a small left pleural effusion. Heart is not significantly enlarged. There are mild degenerative changes of the spine. A right central venous catheter is seen with the tip in the superior vena cava. IMPRESSION: Bilateral infiltrates, much more so on the right side. Bilateral effusions. Electronically Signed by Cisco Fields MD 09/22/2018 10:54 A
--- NOTE | 2018-09-21 13:08 | HPE ---
DATE OF ADMISSION: 09/21/2018 PRIMARY CARE PROVIDER: Justus Woods MD/Nayana Cook NP CHIEF COMPLAINT: Shortness of breath, dyspnea on exertion, exacerbation of congestive heart failure with preserved ejection fraction. HISTORY: Henrik Cabrera is a 63-year-old patient in the [facility], who was sent by Dr. Waldron, his oncologist, to the emergency room for heart failure. The patient has been having dyspnea on exertion, progressively worse over the last week to the point where he can barely walk in a room without having to stop to catch his breath. He has had increasing lower extremity edema. 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 He has a cardiologic history of paroxysmal atrial fibrillation. He was converted to sinus rhythm on a combination of Multaq and metoprolol. He had an implanted loop recorder inserted 08/29/2018 at [facility]. He is chronically borderline hypotensive. His blood pressures per his most recent cardiology note (Dr. Arellano 07/27/2018) shows his blood pressure is usually around 100/50. His last echocardiogram was from May 2018. He had preserved ejection fraction and 1+ mitral regurgitation. He denies any chest pain or syncope. He denies any palpitations. No rectal bleeding, hematemesis. No fever or chills. Other past medical history shows hypertension, type 2 diabetes. He has a surgical history of a circumcision, inguinal lymph node biopsy, and renal stone surgery. He had a thoracentesis April 2018. He had 2 liters of fluid removed from his right chest cavity. He has a Port-a-Cath in his right chest 2019. FAMILY HISTORY: Is negative for hypertension, diabetes, heart disease. SOCIAL HISTORY: He used to smoke a pipe and cigar. No longer smokes. No alcohol intake. Retired. ALLERGIES: None known. MEDICATIONS: - Multaq 400 mg twice a day - mg daily - albuterol inhaler - Lasix 40 mg twice a day - metoprolol 100 mg twice a day - Zofran 8 mg three times a day - Protonix 40 mg daily - potassium chloride 10 mEq daily - He takes prednisone as part of his chemotherapy regimen. REVIEW OF SYSTEMS: As above. Otherwise negative. PHYSICAL EXAMINATION: Vital signs per emergency room (ER) flow sheet. Systolic pressure is 90-100. General appearance: He looks actually fairly spry. He is standing up in the examination room to void without lightheadedness or dizziness. He looks chronically ill. Pupils equal, round, and react to light and accommodation. Tympanic membranes normal. Pharynx benign. Neck: No masses. Jugular venous distention (JVD) is present. Lungs: Have rales, right greater than left. Heart: Regular rate and rhythm. 1/6 holosystolic murmur at the apex. Abdomen: Soft, nontender, no masses. 1+ peripheral edema. No clubbing or cyanosis. Decreased pulses in his feet. LABORATORIES: Chest x-ray showed bilateral fluffy infiltrates but more on the right than the left, primary alveolar consistent with congestive heart failure (CHF). Electrolytes unremarkable. Creatinine 0.5, BNP 1553, troponin is low. White count 5.4, hemoglobin 8.9, platelets 248. I reviewed his electrocardiogram (EKG). It showed no change from previous. IMPRESSION: 1. Congestive heart failure with preserved ejection fraction. He has had dramatic decline in exercise tolerance over the last week. I will repeat his echocardiogram to make sure there has not been some silent ischemia leading to a change in his ejection fraction from May. He will be admitted to a progressive care unit (PCU) bed. I have ordered Lasix on a sliding scale to maintain diuresis at 1200 mL per day. Continue his metoprolol 100 mg twice a day and his Multaq 400 mg twice a day. Daily laboratory work has been ordered. Followup potassium and check his magnesium tomorrow. 2. History of paroxysmal atrial fibrillation. Continue Multaq. Continue beta braden therapy. Telemetry has been ordered. Thyroid-stimulating hormone (TSH) was normal. 3. Diabetes. Sliding scale insulin based upon fingerstick blood sugars. 4. Question of asthma. Albuterol ordered on a as needed basis. Will put a consultation in for Dr. Arellano at the patient's request. I have also ordered a repeat echocardiogram.
[2018-09-21 13:55] VITALS: BP 103/67
[2018-09-21] MEDS: ENOXAPARIN 40 MG/0.4 ML SYRINGE (J1650) SC SCH (14:29)
[2018-09-21] MEDS: POTASSIUM CHLORIDE 10 MEQ SR TABLET PO SCH ×2 (14:30→20:57)
[2018-09-21] MEDS ORDERED: SLF 3 ML SYR IV PRN (14:45)
[2018-09-21 16:00] VITALS: BP 101/67
[2018-09-21] MEDS: DRONEDARONE 400 MG TAB (MULTAQ) PO SCH (17:48)
[2018-09-21 20:00] VITALS: BP 104/63
[2018-09-21] MEDS: METOPROLOL TART 25 MG TABLET PO SCH (20:57)
[2018-09-21] MEDS: SLF 3 ML SYR IV SCH (20:57)
[2018-09-21] MEDS ORDERED: METOPROLOL TARTRATE 100 MG TAB PO SCH (21:00)
[2018-09-21 23:59] VITALS: BP 98/57
[2018-09-22] VITALS (7 sets, daily range): BP systolic 86–117; BP diastolic 17–70
[2018-09-22] MEDS: FUROSEMIDE 100 MG/10 ML VIAL (J1940) IV SCH ×4 (00:58→18:00)
[2018-09-22] MEDS: METOPROLOL TART 25 MG TABLET PO SCH ×4 (04:53→21:27)
[2018-09-22 05:20] LABS: HEMATOCRIT 30.7 % (42.0-52.0); HEMOGLOBIN 9.2 g/dl (13.5-17.5); MEAN CORPUSCULAR HEMOGLOBIN 25.8 pg (27.0-33.0); PLATELET COUNT, AUTOMATED 265 10^3/uL (150-450); RED BLOOD COUNT 3.57 10^6/uL (4.30-6.10); WHITE BLOOD COUNT 4.7 10^3/uL (4.0-10.0)
[2018-09-22 05:38] LABS: BLOOD UREA NITROGEN 18 MG/DL (7-18); CALCIUM LEVEL 8.3 MG/DL (8.8-10.2); CARBON DIOXIDE LEVEL 25 MEQ/L (21-32); CHLORIDE LEVEL 102 MEQ/L (98-107); CREATININE FOR GFR 0.69 MG/DL (0.70-1.30); GLOMERULAR FILTRATION RATE > 60.0 (>49); GLUCOSE, FASTING 105 MG/DL (70-100); MAGNESIUM LEVEL 1.9 MG/DL (1.8-2.4); SODIUM LEVEL 137 MEQ/L (136-145)
[2018-09-22] MEDS: SLF 3 ML SYR IV SCH ×3 (06:06→21:27)
--- NOTE | 2018-09-22 07:17 | ECGEPIP ---
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
[2018-09-22] MEDS: ENOXAPARIN 40 MG/0.4 ML SYRINGE (J1650) SC SCH (08:44)
[2018-09-22] MEDS: HumaLOG INSULIN (NovoLOG) PER UNIT SC SCH ×4 (08:44→20:06)
[2018-09-22] MEDS: DRONEDARONE 400 MG TAB (MULTAQ) PO SCH ×2 (08:45→18:12)
[2018-09-22] MEDS: POTASSIUM CHLORIDE 10 MEQ SR TABLET PO SCH ×2 (08:45→20:10)
--- NOTE | 2018-09-22 09:25 | ECHO ---
DATE OF PROCEDURE: 09/21/2018 AGE: 63 REFERRING PHYSICIAN: Dr. Dorian Mar PATIENT LOCATION: Room 3229 REASON FOR THE CARDIOGRAM: Edema. 2D MEASUREMENTS: IVS 1.3 cm LV 4.0 cm LVPW 1.3 cm Aorta 3.6 cm LA 3.2 cm IVC 1.4 cm DOPPLER MEASUREMENT: Peak velocity across the aortic valve 1.6 m/s Peak velocity across the LVOT is 0.81 m/s Mitral E 0.74 Mitral A 1.1 with a ration of 0.7 Maximum tricuspid valve velocity 3.4 m/s 2D COMMENTS: 1. Normal left ventricular size with mildly increased left ventricular wall thickness. Left ventricular systolic motion is normal, estimated at 60-65%. Normal left atrium. The right atrium and right ventricle appear to be mildly enlarged in limited views. 2. The atrial septum appeared to be normal without evidence of defect or shunt. 3. Normal aortic root. 4. Small pericardial effusion was noted, no evidence of cardiac tamponade. 5. Mildly calcified aortic valve with normal leaflet excursion. Mildly calcified mitral annulus with normal appearing mitral wall leaflet motion. Normal tricuspid valve and pulmonic valve. The proximal pulmonary artery branches were not well preserved. 6. The inferior vena cava was normal in size, Central venous pressure is most likely normal. DOPPLER: It detects trace aortic radiation, trace mitral regurgitation, mild tricuspid regurgitation and trace pulmonic regurgitation. The calculated pulmonary artery systolic pressure varies between 40-50 mmHg. Abnormal relaxation pattern was noted across the mitral valve leaflets as well as the mitral valve annulus consistent with features, grade 1 left ventricular diastolic dysfunction. IMPRESSION: 1. Normal global left ventricular systolic function with mild concentric left ventricular hypertrophy. There is some features of left ventricular diastolic dysfunction manifested by abnormal relaxation. 2. Aortic valve sclerosis without stenosis or aortic regurgitation. 3. Mitral annulus calcification with trace mitral regurgitation. 4. Mild tricuspid regurgitation with probably moderate pulmonary hypertension. The right heart chambers appear to be mildly enlarged in limited views. 5. Small pericardial effusion was noted, no evidence of cardiac tamponade. 6. This was compared with most recent echocardiogram on 05/09/2018, at that time, the right heart chambers appeared to be normal. The patient then was tachycardiac. MTDD
--- NOTE | 2018-09-22 10:01 | CR.PDOC ---
General Date of Consultation: September 22, 2018 Consultation CARDIOLOGY CONSULT NOTE FOR DR. BORJAS HISTORY OF PRESENT ILLNESS: Mr. Cabrera is a 63 y/o male with history non-Hodgkin lymphoma and paroxysmal atrial fibrillation of which he had converted to NSR on his home Multaq and metoprolol. He came to the ED with the complaint of acute SOB that began about three days ago. Worse with ambulation, not so much with laying down flat. He denied any chest pain. He was supposed to get his next round of Chemo therapy but instead was sent from oncology office to the ED due to the worsening SOB. He states that he began receiving chemotherapy in May 2018 for stage IV diffuse B cell lymphoma. He has also noted some b/l LE swelling over the past few days. He does not wear home O2. He feels better today with his breathing, but admits if he got up to walk to the bathroom he would become SOB again. He admits to some diffuse chills the past week or so, however he states he has had no fevers, nausea or vomiting. ALLERGIES: Please see below. HOME MEDICATIONS: Please see below. PAST MEDICAL HISTORY: Includes paroxysmal atrial fibrillation, stage IV diffuse B cell lymphoma. PAST SURGICAL HISTORY: circumcision, renal stone surgery, thoracentesis in 2018, chantell cath in right chest, lymph node biopsy Family History: SOCIAL HISTORY: Used to smoke a pipe and cigars, quit many years ago, no alcohol or drug use REVIEW OF SYSTEMS: CONSTITUTIONAL: he feels SOB but states it is much improved from when he first presented, he is a bit fatigued currently, no other complaints today HEENT: denied change in vision or having a headache CARDIOVASCULAR: no chest pain, no syncope or palpitations RESPIRATORY: he is SOB but improved from admission, no cough or wheezing admitted GENITOURINARY: no difficulty urinating and no pain with urination MUSCULOSKELETAL:he has diffuse muscle aches, but this isn't new for him GASTROINTESTINAL: Denied n/v PHYSICAL EXAMINATION: VITAL SIGNS: Please see below. GENERAL APPEARANCE: This is a 63 yo male sitting in bed, wearing NC O2, he has some conversational dyspnea on exam, mildy uncomfortable appearing but certainly not toxic HEENT: EOMI, moist mucus membranes RESPIRATORY: CTA b/l, no rales, crackles or wheezing appreciated CARDIOVASCULAR: normal s1 and s2, no murmurs, rubs or gallops appreciated ABDOMEN: soft, nabsx4, no hepatosplenomegaly, no masses, no pain to palpation, no rebound, no guarding, no distension, no ridgity EXTREMITIES: b/l +2 edema to level of the knees NEUROLOGICAL: no focal deficits appreciated LABORATORY DATA: Please see below. ASSESSMENT/PLAN: Mr. Cabrera is a 63 yo male who presented to the ED with the complaint of acute onset of SOB. -His telemetry was reviewed as well as his EKG, it is likely that this SOB could be due to recent chemotherapy. Volume overload is certainly possible, he does have signs of this on physical exam. We have personally reviewed his ECHO and it shows a mild diastolic dysfunction with systolic dysfunction grade 1 (largely preserved EF) with an enlarged RV, it is likely he does have pulmonary HTN which could be secondary to a pulmonary process. Trace pericardial effusion. He should be evaluated for possible PE as well. His CXR did show b/l infiltrates this visit, more so on the right side. We will order b/l us of LE to r/o DVT, hold on ordering d-dimer at this point as it is likely to be positive for him. We should entertain the idea that he could have a pulmonary process largely contributing to his current complaints. His BNP was elevated to 1553, which is increased from his levels in May 2018. He is currently being diuresed and we agree with this. He continues on Lopressor and home Multaq. CHEST CT in May 2018 showed bulky lymphadenopathy causing narrowing of the trachea with b/l pleural effusions. There is also an ECHO report in his documents from [facility] from July 2018 that showed normal EF of 60% with mildly dilated L atrium. ECHO in our system from May 2018 showed underlying a. flutter and intraventricular conduction disturbance, normal LV size and wall thickness and motion, normal left atrial size and LV diastolic function with normal right heart chamber sizes and pulmonary artery pressure with normal IVC size with elevated CVP, without intracardiac mass or pericardial effusion. No further recommendations for now, continue current medical plan, we will await results of u/s as stated above. We will continue to follow the patient in the hospital and offer our recommendations as such. Addendum Winsome Borjas MD: Patient seen and examined, chart reviewed. 63yo man undergoing treatment for stage IV lymphoma presents with worsening dyspnea. There is evidence for volume overload but I suspect additional disease process causing dyspnea as well. His ECHO is not typical for exacerbated CHF and CXR reveals asymmetry of findings between R and L lungs. If not responding promptly to diuresis suggest to repeat lung imaging, consider CTA. Vital Signs/I&O Vital Signs Date Time Temp Pulse Resp B/P (MAP) Pulse Ox O2 Delivery O2 Flow Rate FiO2 09/22/18 08:00 96.9 95 18 98/67 (77) 98 4.0 09/21/18 13:41 Nasal Cannula I&O- Last 24 Hours up to 6 AM 09/22/18 06:00 Intake Total 840 ml Output Total 3175 ml Balance -2335 ml Laboratory Data Labs 24H Laboratory Tests 2 09/21/18 17:42: Bedside Glucose (Misc Panel) 89 09/21/18 20:03: Bedside Glucose (Misc Panel) 101 09/22/18 04:48: Nucleated Red Blood Cells % (auto) 0.0, Anion Gap 10, Glomerular Filtration Rate > 60.0, Blood Urea Nitrogen 18, Creatinine 0.69L, Sodium Level 137, Potassium Level 4.0, Chloride Level 102, Carbon Dioxide Level 25, Calcium Level 8.3L, Magnesium Level 1.9 CBC/BMP Laboratory Tests 09/22/18 04:48 Red Blood Count 3.57 L, Mean Corpuscular Volume 86.0, Mean Corpuscular Hemoglobin 25.8 L, Mean Corpuscular Hemoglobin Concent 30.0 L, Red Cell Distribution Width 18.6 H, Calcium Level 8.3 L Microbiology Microbiology 09/21/18 Blood Culture, Received Pending 09/21/18 Blood Culture, Received Pending Allergies Coded Allergies: No Known Allergies (Unverified , 05/19/18) Home Medications Scheduled Dronedarone (Multaq) 400 Mg Tab, 400 MG PO BID, (Reported) Furosemide (Furosemide) 40 Mg Tab, 40 MG PO BID, (Reported) Metoprolol Tartrate (Metoprolol Tartrate) 100 Mg Tablet, 100 MG PO BID, (Reported) Potassium Chloride (Potassium Chloride) 10 Meq Cap, 10 MEQ PO BID, (Reported) Scheduled PRN Albuterol Sulfate (Ventolin Hfa) 108 Mcg/Act Aer, 2 PUFFS INH Q6H PRN for SHORTNESS OF BREATH, (Reported) Naproxen Sodium (Aleve) 220 Mg Tablet, 440 MG PO DAILY PRN for PAIN, (Reported) Ondansetron HCl (Ondansetron HCl) 8 Mg Tablet, 8 MG PO TID PRN for NAUSEA OR VOMITING, (Reported) GME ATTESTATION GME ATTESTATION My faculty preceptor for this patient encounter was physically present during the encounter and was fully available. All aspects of the patient interview, examination, medical decision making process, and medical care plan development were reviewed and approved by the faculty preceptor. The faculty preceptor is aware and concurs with the plan as stated in the body of this note and will attest to such by his/her cosignature. NORMA ROSALES DO September 22, 2018 10:01 Haja Borjas MD September 25, 2018 11:21
--- NOTE | 2018-09-22 10:05 | IPNPDOC ---
Subjective Date Seen The patient was seen on 09/22/18. Subjective Chief Complaint/HPI Pt this morning states that he is feeling a lot better than he was yesterday, his SOB at this time is mostly exertional and he is feeling better when in bed at rest. General: Denies: Fatigue Constitutional: Denies: Chills, Fever Pulmonary: Reports: Dyspnea; Denies: Cough Cardiovascular: Denies: Chest Pain, Palpitations Gastrointestinal: Denies: Nausea, Vomiting, Diarrhea Neurological: Reports: Weakness Psych: Reports: Mood Normal Objective Physical Examination General Exam: Positive: Alert, No Acute Distress ENT Exam: Positive: Mucous membr. moist/pink Chest Exam: Positive: Normal air movement, Rales (Bibasilar) Heart Exam: Positive: Rate Normal, Normal S1, Normal S2 Abdomen Exam: Positive: Normal bowel sounds, Soft; Negative: Tenderness Extremity Exam: Positive: Edema (1 + BLE) Neuro Exam: Positive: Normal Speech Psych Exam: Positive: Mood NL A-FIB/CHADSVASC A-FIB History Current/History of A-Fib/PAF?: No Assessment /Plan Problems (1) Congestive heart failure (CHF) Status: Acute Response to Treatment: Stable, Improving Discussed With: Nurse, Patient Problem Specific Plan: Monitor Clinically, Repeat Labs Problem Text: likely diastolic acute on chronic with preserved EF, has diuresed for a net neg of 1300 cc overnight and is neg this morning at this point as well. He is feeling better, will cont with IV Lasix for a Net Neg fluid balance, anticipate d/c in AM. (2) Large B-cell lymphoma Status: Acute Plan/VTE VTE Prophylaxis Ordered?: Yes VS, I&O, 24H, [facility] Vital Signs/I&O Vital Signs Date Time Temp Pulse Resp B/P (MAP) Pulse Ox O2 Delivery O2 Flow Rate FiO2 09/22/18 08:00 96.9 95 18 98/67 (77) 98 4.0 09/21/18 13:41 Nasal Cannula I&O- Last 24 Hours up to 6 AM 09/22/18 06:00 Intake Total 840 ml Output Total 3175 ml Balance -2335 ml Laboratory Data 24H LABS Laboratory Tests 2 09/21/18 17:42: Bedside Glucose (Misc Panel) 89 09/21/18 20:03: Bedside Glucose (Misc Panel) 101 09/22/18 04:48: Nucleated Red Blood Cells % (auto) 0.0, Anion Gap 10, Glomerular Filtration Rate > 60.0, Blood Urea Nitrogen 18, Creatinine 0.69L, Sodium Level 137, Potassium Level 4.0, Chloride Level 102, Carbon Dioxide Level 25, Calcium Level 8.3L, Magnesium Level 1.9 CBC/BMP Laboratory Tests 09/22/18 04:48 Red Blood Count 3.57 L, Mean Corpuscular Volume 86.0, Mean Corpuscular Hemoglobin 25.8 L, Mean Corpuscular Hemoglobin Concent 30.0 L, Red Cell Distribution Width 18.6 H, Calcium Level 8.3 L Microbiology Microbiology 09/21/18 Blood Culture, Received Pending 09/21/18 Blood Culture - Preliminary, Resulted No growth after 24 hours . All specim... PILY DAVENPORT PA-C September 22, 2018 10:05
--- NOTE | 2018-09-22 10:14 | REP ---
Clinical: Bilateral lower extremity pain . Technique: Fields scale and color Doppler evaluation using linear high frequency transducer. Findings: Ultrasound examination of the right and left lower extremity deep venous structures from the common femoral vein to the popliteal vein demonstrates normal compressibility flow and wave patterns in response to respiration and augmentation. There is no evidence for deep venous thrombosis. Impression: No evidence for deep venous thrombosis. Electronically Signed by Bill Angel MD 09/22/2018 10:06 A
[2018-09-23] MEDS: FUROSEMIDE 100 MG/10 ML VIAL (J1940) IV SCH ×4 (00:29→18:27)
[2018-09-23 04:00] VITALS: BP 105/59
[2018-09-23] MEDS: METOPROLOL TART 25 MG TABLET PO SCH ×4 (04:29→22:00)
[2018-09-23] MEDS: SLF 3 ML SYR IV SCH ×3 (05:29→22:00)
[2018-09-23 05:48] LABS: HEMATOCRIT 29.3 % (42.0-52.0); HEMOGLOBIN 9.1 g/dl (13.5-17.5); MEAN CORPUSCULAR HEMOGLOBIN 27.2 pg (27.0-33.0); MEAN CORPUSCULAR HGB CONC 31.1 g/dl (32.0-36.5); MEAN CORPUSCULAR VOLUME 87.7 fl (80.0-96.0); PLATELET COUNT, AUTOMATED 213 10^3/uL (150-450); RED BLOOD COUNT 3.34 10^6/uL (4.30-6.10); WHITE BLOOD COUNT 4.3 10^3/uL (4.0-10.0)
[2018-09-23 06:03] LABS: BLOOD UREA NITROGEN 20 MG/DL (7-18); CALCIUM LEVEL 8.1 MG/DL (8.8-10.2); CARBON DIOXIDE LEVEL 30 MEQ/L (21-32); CHLORIDE LEVEL 98 MEQ/L (98-107); CREATININE FOR GFR 0.61 MG/DL (0.70-1.30); GLOMERULAR FILTRATION RATE > 60.0 (>49); GLUCOSE, FASTING 98 MG/DL (70-100); SODIUM LEVEL 136 MEQ/L (136-145)
[2018-09-23] MEDS: HumaLOG INSULIN (NovoLOG) PER UNIT SC SCH ×4 (07:30→21:00)
[2018-09-23 08:00] VITALS: BP 105/74
--- NOTE | 2018-09-23 08:33 | IPNPDOC ---
Subjective Date Seen The patient was seen on 09/23/18. Subjective Chief Complaint/HPI Pt this morning states that his breathing is better but still feels SOB harmeet with exertion. He states that typically he can walk about without difficulty. He doesn't feel the O2 gives him any relief and therefore doesn't want to wear it. He reports that the swelling in his legs has improved. General: Reports: Fatigue Constitutional: Denies: Chills, Fever Pulmonary: Reports: Dyspnea; Denies: Cough Cardiovascular: Denies: Chest Pain, Palpitations Gastrointestinal: Denies: Nausea, Vomiting, Diarrhea Neurological: Denies: Weakness Psych: Reports: Mood Normal Objective Physical Examination General Exam: Positive: Alert, No Acute Distress ENT Exam: Positive: Mucous membr. moist/pink Chest Exam: Positive: Rales, Diminished; Negative: Normal air movement (fine bibasilar rales) Heart Exam: Positive: Rate Normal, Normal S1, Normal S2 Abdomen Exam: Positive: Normal bowel sounds, Soft; Negative: Tenderness Extremity Exam: Positive: Edema (1 + BLE) Neuro Exam: Positive: Normal Speech Psych Exam: Positive: Mood NL A-FIB/CHADSVASC A-FIB History Current/History of A-Fib/PAF?: No Assessment /Plan Problems (1) Congestive heart failure (CHF) Status: Acute Response to Treatment: Stable, Improving Discussed With: Nurse, Patient Problem Specific Plan: Monitor Clinically, Repeat Labs Problem Text: 09/23 Pt has diuresed nearly 3 L of fluid since admission, he cont to receive IV lasix with Net neg. His resp status has improved although not as I would expect. Will repeat CXR today, consider CTA if unrevealing. 09/22 likely diastolic acute on chronic with preserved EF, has diuresed for a net neg of 1300 cc overnight and is neg this morning at this point as well. He is feeling better, will cont with IV Lasix for a Net Neg fluid balance, anticipate d/c in AM. (2) Large B-cell lymphoma Status: Acute Problem Specific Plan: Monitor Clinically Problem Text: Mgmt per Onc as outpt. Plan/VTE VTE Prophylaxis Ordered?: Yes VS, I&O, 24H, Fishbone Vital Signs/I&O Vital Signs Date Time Temp Pulse Resp B/P (MAP) Pulse Ox O2 Delivery O2 Flow Rate FiO2 09/23/18 04:29 102 108/70 09/23/18 04:00 4.0 09/23/18 04:00 96.8 20 97 09/21/18 13:41 Nasal Cannula l I&O- Last 24 Hours up to 6 AM 09/23/18 05:59 Intake Total 1515 ml Output Total 3250 ml Balance -1735 ml Laboratory Data 24H LABS Laboratory Tests 2 09/22/18 12:15: Bedside Glucose (Misc Panel) 100 09/22/18 17:00: Bedside Glucose (Misc Panel) 89 09/22/18 20:04: Bedside Glucose (Misc Panel) 111 09/23/18 05:27: Nucleated Red Blood Cells % (auto) 0.0, Anion Gap 8, Glomerular Filtration Rate > 60.0, Blood Urea Nitrogen 20H, Creatinine 0.61L, Sodium Level 136, Potassium Level 4.0, Chloride Level 98, Carbon Dioxide Level 30, Calcium Level 8.1L CBC/BMP Laboratory Tests 09/23/18 05:27 Red Blood Count 3.34 L, Mean Corpuscular Volume 87.7, Mean Corpuscular Hemoglobin 27.2, Mean Corpuscular Hemoglobin Concent 31.1 L, Red Cell Di stribution Width 18.4 H, Calcium Level 8.1 L Microbiology Microbiology 09/21/18 Blood Culture - Preliminary, Resulted No growth after 24 hours . All specim... 09/21/18 Blood Culture - Preliminary, Resulted No growth after 24 hours . All specim... PILY DAVENPORT PA-C September 23, 2018 08:33
--- NOTE | 2018-09-23 09:13 | REP ---
Clinical: Respiratory failure. Technique: PA and lateral. Comparison: 09/21/2018. Findings: Bilateral opacities (right greater than left) along with possible small pleural effusions are essentially unchanged compared to 09/21/2018. Visualized mediastinum and cardiac silhouette are stable and within normal limits. [id number] identified with tip in the SVC. No pneumothorax. Skeletal structures are intact. Impression: Diffuse bilateral multifocal infiltrates (right greater than left) and small pleural effusions similar to recent prior examination. Findings are obviously increased when compared with 05/10/2018. Electronically Signed by Bill Angel MD 09/23/2018 09:06 A
[2018-09-23] MEDS: POTASSIUM CHLORIDE 10 MEQ SR TABLET PO SCH ×2 (09:22→21:17)
[2018-09-23] MEDS: DRONEDARONE 400 MG TAB (MULTAQ) PO SCH ×2 (09:22→18:28)
[2018-09-23] MEDS: ENOXAPARIN 40 MG/0.4 ML SYRINGE (J1650) SC SCH (09:22)
[2018-09-23 12:00] VITALS: BP 102/68
[2018-09-23] MEDS ORDERED: ISOVUE-370 76% 100ML VIAL (Q9967) As Ordered ONE (12:43)
--- NOTE | 2018-09-23 13:32 | IPNPDOC ---
Text Note Date of Service The patient was seen on 09/23/18. NOTE CARDIOLOGY CONSULT NOTE FOR DR BORJAS Mr. Cabrera is seen on bedside rounds this morning, he states he is still SOB but feels a little improved, he thinks the swelling in his legs is improved. He says if he tries to get out of bed, the SOB becomes much worse. He is not having any chest pain or palpitations. REVIEW OF SYSTEMS: CONSTITUTIONAL: he feels better, but he is still a bit SOB especially with exertion. HEENT: denied change in vision or having a headache CARDIOVASCULAR: no chest pain, no syncope or palpitations RESPIRATORY: he is SOB again this morning but improved from admission, no cough or wheezing admitted GENITOURINARY: no difficulty urinating and no pain with urination MUSCULOSKELETAL:he has diffuse muscle aches, but this isn't new for him GASTROINTESTINAL: Denied n/v PHYSICAL EXAMINATION: VITAL SIGNS: Please see below. GENERAL APPEARANCE: This is a 63 yo male sitting in bed, he is not wearing his NC O2 currently, he has some continued conversational dyspnea on exam, again demonstrating conversational dyspnea HEENT: EOMI, moist mucus membranes RESPIRATORY: CTA b/l, no rales, wheezing appreciated, some crackles noted in RLL, no JVP appreciated CARDIOVASCULAR: normal s1 and s2, no murmurs, rubs or gallops appreciated ABDOMEN: soft, nabsx4, no hepatosplenomegaly, no masses, no pain to palpation, no rebound, no guarding, no distension, no ridgity EXTREMITIES: b/l +2 edema to level of the knees NEUROLOGICAL: no focal deficits appreciated LABORATORY DATA: Please see below. ASSESSMENT/PLAN: Mr. Cabrera is a 63 yo male who presented to the ED with the complaint of acute onset of SOB. -He had b/l U/S LE performed yesterday that was negative for DVT. Suspect his SOB is likely from a presumed pulmonary etiology, would suggest a repeat CXR and then CT of the chest if that is unrevealing. He is being diuresed and had 3 L out yesterday, he can continue being diuresed. ECHO was read and does not show significant systolic dysfunction. We have personally reviewed his ECHO and feels there is a mild diastolic dysfunction with systolic dysfunction grade 1 (largely preserved EF however) with an enlarged RV, it is likely he does have an element of pulmonary HTN which could be secondary to a pulmonary process. Trace pericardial effusion. He continues on Lopressor and home Multaq. He does tell us that he has had thoracentesis performed in the past, he may require this again this admission. No further recommendations for now, continue current medical plan. We will continue to follow the patient in the hospital and offer our recommendations as such. VS,Fishbone, I+O VS, Fishbone, I+O Laboratory Tests 09/23/18 05:27 Red Blood Count 3.34 L, Mean Corpuscular Volume 87.7, Mean Corpuscular Hemoglobin 27.2, Mean Corpuscular Hemoglobin Concent 31.1 L, Red Cell Distribution Width 18.4 H, Calcium Level 8.1 L Vital Signs Date Time Temp Pulse Resp B/P (MAP) Pulse Ox O2 Delivery O2 Flow Rate FiO2 09/23/18 12:00 3.0 09/23/18 12:00 97.6 86 20 102/68 (79) 92 09/21/18 13:41 Nasal Cannula I&O- Last 24 Hours up to 6 AM 09/23/18 06:00 Intake Total 1095 ml Output Total 2650 ml Balance -1555 ml GME ATTESTATION GME ATTESTATION My faculty preceptor for this patient encounter was physically present during the encounter and was fully available. All aspects of the patient interview, examination, medical decision making process, and medical care plan development were reviewed and approved by the faculty preceptor. The faculty preceptor is aware and concurs with the plan as stated in the body of this note and will attest to such by his/her cosignature. NORMA ROSALES DO September 23, 2018 13:32
--- NOTE | 2018-09-23 14:54 | REP ---
Clinical: Hypoxia. Technique: Axial contrast enhanced images using pulmonary embolus technique with multiplanar re-formations. 100 ml Isovue 370 intravenous contrast material administered without complication. Findings: Satisfactory enhancement of the pulmonary vasculature is achieved and no filling defects are identified to suggest pulmonary embolus. Thoracic aorta is normal and without aneurysm or dissection. Heart and pericardium are normal. Extensive bilateral consolidations are appreciated (right greater than left) along with moderate to large bilateral pleural effusions. No pneumothorax. Musculoskeletal structures are intact. Impression: 1. Significant bilateral infiltrates compatible with multifocal pneumonia and accompanying bilateral moderate to large pleural effusions. 2. No pulmonary embolus. Electronically Signed by Bill Angel MD 09/23/2018 02:46 P
[2018-09-23 16:00] VITALS: BP 97/71
[2018-09-23 20:00] VITALS: BP 90/53
[2018-09-23] MEDS ORDERED: cefTRIAXone SOD 2 GM in D5W MINI-BAG PLUS 50 ML IV SCH (23:00)
[2018-09-23 23:59] VITALS: BP 79/49
[2018-09-24] VITALS (8 sets, daily range): BP systolic 88–106; BP diastolic 50–66
[2018-09-24] MEDS: METOPROLOL TART 25 MG TABLET PO SCH ×4 (04:00→22:00)
[2018-09-24 06:08] LABS: HEMATOCRIT 30.5 % (42.0-52.0); HEMOGLOBIN 9.5 g/dl (13.5-17.5); MEAN CORPUSCULAR HGB CONC 31.1 g/dl (32.0-36.5); MEAN CORPUSCULAR VOLUME 86.6 fl (80.0-96.0); PLATELET COUNT, AUTOMATED 259 10^3/uL (150-450); RED BLOOD COUNT 3.52 10^6/uL (4.30-6.10); WHITE BLOOD COUNT 5.3 10^3/uL (4.0-10.0)
[2018-09-24 06:28] LABS: BLOOD UREA NITROGEN 22 MG/DL (7-18); CALCIUM LEVEL 8.4 MG/DL (8.8-10.2); CARBON DIOXIDE LEVEL 35 MEQ/L (21-32); CHLORIDE LEVEL 94 MEQ/L (98-107); CREATININE FOR GFR 0.75 MG/DL (0.70-1.30); GLOMERULAR FILTRATION RATE > 60.0 (>49); GLUCOSE, FASTING 113 MG/DL (70-100); POTASSIUM SERUM 3.7 MEQ/L (3.5-5.1); SODIUM LEVEL 136 MEQ/L (136-145)
[2018-09-24] MEDS: FUROSEMIDE 100 MG/10 ML VIAL (J1940) IV SCH ×5 (06:29→18:39)
[2018-09-24] MEDS: SLF 3 ML SYR IV SCH ×3 (06:43→21:50)
[2018-09-24] MEDS: DRONEDARONE 400 MG TAB (MULTAQ) PO SCH ×2 (08:26→18:38)
[2018-09-24] MEDS: HumaLOG INSULIN (NovoLOG) PER UNIT SC SCH ×4 (08:26→20:40)
[2018-09-24] MEDS: POTASSIUM CHLORIDE 10 MEQ SR TABLET PO SCH ×2 (08:27→20:41)
[2018-09-24] MEDS: ENOXAPARIN 40 MG/0.4 ML SYRINGE (J1650) SC SCH (08:27)
--- NOTE | 2018-09-24 13:32 | IPN ---
DATE: 09/24/2018 Mr. Henrik Cabrera was seen earlier today, he was supine in bed in no acute distress at rest. He stated that he was diagnosed by CAT scan to have bilateral pneumonia and was started on IV antibiotics. He denies any chest pain and there is no orthopnea, paroxysmal nocturnal dyspnea (PND) or palpitations. He does however complain of shortness of breath with minimal activities. He was initially admitted on 09/21/2018 because of shortness of breath and bilateral pedal edema and had an echocardiogram that revealed normal global left ventricular systolic function with a small pericardial effusion, moderate pulmonary hypertension, mildly dilated right heart chambers, and grade 1 left ventricular diastolic dysfunction. Calculated pulmonary artery systolic pressure varied between 40-50 mmHg. He was started on IV diuretics and his pedal edema is now almost gone and has been passing a lot of urine. Prior to coming here, he was on by mouth diuretics and he stated that it was not working well. He has a remote history of hypertension which has resolved with diet and weight loss. He also has a history of paroxysmal atrial fibrillation, diabetes mellitus and asthma. Mr. Henrik Cabrera stated that he has been doing well and this winter while in [place] he was diagnosed with lymphoma and he came back to [facility] and has been going to the local cancer clinic and started on chemotherapy. He has been having progressive shortness of breath for a few days, relieved with rest. He denies any chest pain. He has no orthopnea or PND. He also has been coughing and has developed increasing bilateral pedal edema. He denies any bleeding. He denies any fever or chills. PHYSICAL EXAMINATION: The patient is alert and oriented in no acute distress at rest. His most recent vital signs revealed a blood pressure of 97/60 with a pulse of 81, respirations 18-20 and his maximum temperature is 98.2 degrees Fahrenheit with an oxygen saturation of 96% on 3 liters nasal cannula. He has a negative fluid balance of 1.7 liters for 09/23/2018 and prior to that it was 1.4 liters for 09/22/2018. His weight has decreased from 77.7 kg on admission to 70.3 kg today. Examination of the Head: Atraumatic. Neck: Neck is supple. The lungs did not reveal any wheezing. Bilateral rhonchi noted. The heart examination revealed irregular heart sounds without gallops. The PMI is not displaced. There is no rub. I could not appreciate any murmurs. Abdomen is soft and nontender, bowel sounds positive. Extremities reveal trace bilateral ankle edema. Neurological examination is negative for focal deficit. LABORATORY DATA: BMP done today revealed a sodium of 136, potassium 3.7, chloride 94, CO2 22, BUN 0.75, GFR more than 60, fasting glucose 113 and calcium 8.4. Serum pro BNP on admission was 1553. CBC today revealed a WBC of 5.3, hemoglobin 9.5, hematocrit 30.5 and platelets 259,000. A chest CT done yesterday, 09/23/2018, revealed significant bilateral infiltrates compatible with multiple focal pneumonia and bilateral moderate to large pleural effusion. No pulmonary embolism. IMPRESSION: 1. Shortness of breath; probably related to a combination of factors, such as some degree of diastolic heart failure, bilateral pleural effusion and bilaterally infiltrates noted on chest x-ray. His underlying lung disease is probably the major contributing factor to his symptoms. He also has some underlying pulmonary hypertension with dilated right heart chambers. His EKG revealed normal sinus rhythm, he does have a history of atrial fibrillation for which he has been on antiarrhythmic drugs as well as AV blocking agent with metoprolol tartrate. For some unknown reason, he is currently not on any anticoagulation therapy, he is currently on deep vein thrombosis (DVT) prophylaxis. Once again, I will continue current management with the diuretics, monitor closely his BUN, creatinine and serum potassium. He might benefit from a pulmonary evaluation and thoracentesis. I will continue to monitor him along with you over the weekend. Please do not hesitate to call if any questions.
--- NOTE | 2018-09-24 14:08 | IPNPDOC ---
Subjective Date Seen The patient was seen on 09/24/18. Subjective Chief Complaint/HPI improved but persistent dyspnea s cough, but mild rhinorrhea Constitutional: Denies: Chills Eyes: Denies: Pain ENT: Denies: Head Aches Skin: Denies: Rash Pulmonary: Denies: Dyspnea Cardiovascular: Denies: Chest Pain, Palpitations Gastrointestinal: Denies: Nausea, Vomiting Genitourinary: Denies: Dysuria Objective Physical Examination General Exam: Positive: Alert, No Acute Distress ENT Exam: Positive: Mucous membr. moist/pink Chest Exam: Positive: Rales (B scattered ), Diminished (R>L); Negative: Normal air movement (fine bibasilar rales) Heart Exam: Positive: Rate Normal, Normal S1, Normal S2 Abdomen Exam: Positive: Normal bowel sounds, Soft; Negative: Tenderness Extremity Exam: Positive: Edema (1 + BLE) Neuro Exam: Positive: Normal Speech Psych Exam: Positive: Mood NL Assessment /Plan Problems (1) Acute on chronic diastolic (congestive) heart failure Status: Acute Problem Text: NN -5.9L since admission 09/24 3.7, cr 0.8, continue fur 80 IV q6H, K 10 BID 09/21/18 TTE: IMPRESSION: 1. Normal global left ventricular systolic function with mild concentric left ventricular hypertrophy. There is some features of left ventricular diastolic dysfunction manifested by abnormal relaxation. 2. Aortic valve sclerosis without stenosis or aortic regurgitation. 3. Mitral annulus calcification with trace mitral regurgitation. 4. Mild tricuspid regurgitation with probably moderate pulmonary hypertension. The right heart chambers appear to be mildly enlarged in limited views. 5. Small pericardial effusion was noted, no evidence of cardiac tamponade. 6. This was compared with most recent echocardiogram on 05/09/2018, at that time, the right heart chambers appeared to be normal. The patient then was tachycardiac. DD: CAREY SOW MD 09/22/18 0134 DT: CHANTELLE 09/22/18 0858 (2) Multifocal pneumonia Status: Acute Problem Text: D1 cefepime 2 TID/vanco 15-20 trough (previous 2D ceftriaxone 2 gm) was to receive 6th of 6 cycle R-CHOP on 09/21/18, but held 2 dyspnea c hypoxia/chills-worsening x 4D prior remains Sa)@ ~93% on 3L NC (baseline does not require 02) 09/24 AF since admission, WBC 5.3 (09/21 5.3 but 5% meta/myelo); changed regimen to cover HAP in immunocompromised, check urinary pn, fungal Ab; unable to produce sputum for CX 09/23/18 CTA chest: 1. Significant bilateral infiltrates compatible with multifocal pneumonia and accompanying bilateral moderate to large pleural effusions. 2. No pulmonary embolus. 09/21/18 BCX2 NG (3) Large B-cell lymphoma Status: Acute Problem Specific Plan: Monitor Clinically Problem Text: Mgmt per Onc as outpt. (4) Paroxysmal atrial fibrillation Status: Chronic Response to Treatment: Stable Problem Text: remains SR on HD met tar 25 q6H, drone 400 BID Plan/VTE VTE Prophylaxis Ordered?: Yes VS, I&O, 24H, Fishbone Vital Signs/I&O Vital Signs Date Time Temp Pulse Resp B/P (MAP) Pulse Ox O2 Delivery O2 Flow Rate FiO2 09/24/18 12:00 97.5 91 18 100/50 (67) 93 3.0 09/21/18 13:41 Nasal Cannula I&O- Last 24 Hours up to 6 AM 09/24/18 06:00 Intake Total 1615 ml Output Total 3425 ml Balance -1810 ml Laboratory Data 24H LABS Laboratory Tests 2 09/23/18 17:03: Bedside Glucose (Misc Panel) 127H 09/23/18 21:09: Bedside Glucose (Misc Panel) 120H 09/24/18 05:49: Nucleated Red Blood Cells % (auto) 0.0, Anion Gap 7L, Glomerular Filtration Rate > 60.0, Blood Urea Nitrogen 22H, Creatinine 0.75, Sodium Level 136, Potassium Level 3.7, Chloride Level 94L, Carbon Dioxide Level 35H, Calcium Level 8.4L 09/24/18 12:29: Bedside Glucose (Misc Panel) 105 CBC/BMP Laboratory Tests 09/24/18 05:49 Red Blood Count 3.52 L, Mean Corpuscular Volume 86.6, Mean Corpuscular Hemoglobin 27.0, Mean Corpuscular Hemoglobin Concent 31.1 L, Red Cell Distribution Width 18.2 H, Calcium Level 8.4 L Microbiology Microbiology 09/21/18 Blood Culture - Preliminary, Resulted No Growth after 72 hours. All specime... 09/21/18 Blood Culture - Preliminary, Resulted No Growth after 72 hours. All specime... Onesimo,Hermann E. M.D. SALOME September 24, 2018 14:08
[2018-09-24] MEDS: CEFEPIME HCL 2 GM in D5W MINI-BAG PLUS 50 ML IV SCH ×2 (15:06→23:21)
--- NOTE | 2018-09-24 15:39 | PHACANCOPD ---
PHARMACY VANCOMYCIN DOSING Pt Demographics Demographics Patient Age:63 , Weight:73.300 , Gender: male Adjusted Body Weight Date: 09/24/18, Adjusted Body Weight: Kg Events Past 24 Hours Events Past 24 Hours: YES: Pending Diagnostics Vancomycin Vancomycin indication: PNEUMONIA Vancomycin Target Ranges: 15-20 mcg/ml Vancomycin Load Y/N: Yes Load Dose Date Time Vancomycin Load Dose: 1500mg Date: 09/24/18 Time: 1600 Vancomycin Dose Date: 09/24/18. Current Vancomycin Dose: [1250mg IV Q12H] Intermittent Dosing?: No Labs Labs Item Value Date Time White Blood Count 5.3 10^3/uL 09/24/18 0549 White Blood Count 4.3 10^3/uL 09/23/18 0527 White Blood Count 4.7 10^3/uL 09/22/18 0448 Band Neutrophils 5 % 09/21/18 0912 Creatinine 0.75 MG/DL 09/24/18 0549 Creatinine 0.61 MG/DL L 09/23/18 0527 Creatinine 0.69 MG/DL L 09/22/18 0448 Blood Urea Nitrogen 22 MG/DL H 09/24/18 0549 Blood Urea Nitrogen 20 MG/DL H 09/23/18 0527 Blood Urea Nitrogen 18 MG/DL 09/22/18 0448 C-Reactive Protein, Quantitative 4.80 MG/DL H 09/24/18 1446 Micro Microbiology 09/21/18 Blood Culture - Preliminary, Resulted No Growth after 72 hours. All specime... 09/21/18 Blood Culture - Preliminary, Resulted No Growth after 72 hours. All specime... Creatinine Clearance Date:09/24/18. Est Creatinine Clearance: [~79ml/min]. Pending Labs Vancomycin trough level scheduled 09/25/18 @1600 - prior to the 3rd dose Assessment and Plan Maintaining Current Dose?: Yes Reason for dose change: No Dose Change Pharmacist Note Pharmacist Note Date: 09/24/18. Pharmacist note: Day #1 empiric vancomycin therapy initiated with a 1500mg loading dose, followed by a maintenance regimen of 1250mg IV Q12H for the treatment of multifocal pneumonia for a patient with a hx of large B cell lymphoma - aiming for a goal trough of 15-20mcg/ml. WBC, bands, LA, and temp are WNL. CRP is currently elevated and ESR is pending. Blood cultures are pending. Chest CT shows "significant bilateral infiltrates compatible with multifocal pneumonia and accompanying bilateral moderate to large pleural effusions." A vancomycin trough level has been scheduled to be drawn tomorrow, 09/25/18, at 1600 - prior to the 3rd dose. We will continue to monitor and make dose adjustments if needed. SHAHAB THOMAS [facility]ARMAC[facility] September 24, 2018 15:39
[2018-09-24] MEDS ORDERED: VANCOMYCIN HCL 1,000 MG, VIAL MATE ADAPTER 1 EACH in D5W 250 ML IV ONE (16:00)
[2018-09-24] MEDS: VANCOMYCIN HCL 500 MG in D5W MINI-BAG PLUS 100 ML IV SCH (17:04)
[2018-09-25] VITALS (9 sets, daily range): BP systolic 82–103; BP diastolic 52–68
[2018-09-25] MEDS: FUROSEMIDE 100 MG/10 ML VIAL (J1940) IV SCH ×4 (00:27→17:21)
[2018-09-25] MEDS: METOPROLOL TART 25 MG TABLET PO SCH ×4 (04:30→22:00)
[2018-09-25] MEDS: VANCOMYCIN HCL 500 MG in D5W MINI-BAG PLUS 100 ML IV SCH ×2 (05:03→18:06)
[2018-09-25] MEDS: SLF 3 ML SYR IV SCH ×3 (05:09→22:00)
[2018-09-25] MEDS: VANCOMYCIN HCL 750 MG, VIAL MATE ADAPTER 1 EACH in D5W 250 ML IV SCH ×2 (06:20→18:06)
[2018-09-25 06:52] LABS: HEMATOCRIT 27.6 % (42.0-52.0); HEMOGLOBIN 8.5 g/dl (13.5-17.5); MEAN CORPUSCULAR HEMOGLOBIN 26.1 pg (27.0-33.0); MEAN CORPUSCULAR HGB CONC 30.8 g/dl (32.0-36.5); MEAN CORPUSCULAR VOLUME 84.7 fl (80.0-96.0); PLATELET COUNT, AUTOMATED 227 10^3/uL (150-450); RED BLOOD COUNT 3.26 10^6/uL (4.30-6.10); WHITE BLOOD COUNT 3.7 10^3/uL (4.0-10.0)
[2018-09-25 06:59] LABS: BLOOD UREA NITROGEN 21 MG/DL (7-18); CALCIUM LEVEL 8.1 MG/DL (8.8-10.2); CARBON DIOXIDE LEVEL 33 MEQ/L (21-32); CHLORIDE LEVEL 92 MEQ/L (98-107); CREATININE FOR GFR 0.69 MG/DL (0.70-1.30); GLOMERULAR FILTRATION RATE > 60.0 (>49); GLUCOSE, FASTING 116 MG/DL (70-100); POTASSIUM SERUM 3.3 MEQ/L (3.5-5.1); SODIUM LEVEL 133 MEQ/L (136-145)
[2018-09-25] MEDS: CEFEPIME HCL 2 GM in D5W MINI-BAG PLUS 50 ML IV SCH ×3 (07:40→23:15)
[2018-09-25 07:42] LABS: EOSINOPHILS 2 % (0-5); LYMPHOCYTES 5 % (16-52); METAMYELOCYTES 2 % (0-0); MONOCYTES 3 % (0-8); MYELOCYTES 4 % (0-0); NEUTROPHILS 84 % (35-75)
[2018-09-25 07:43] LABS: PLATELET ESTIMATE NORMAL (NORMAL)
[2018-09-25 07:44] LABS: ROULEAUX 1+
[2018-09-25] MEDS: HumaLOG INSULIN (NovoLOG) PER UNIT SC SCH ×4 (08:26→21:00)
[2018-09-25] MEDS: POTASSIUM CHLORIDE 10 MEQ SR TABLET PO SCH ×2 (08:26→20:16)
[2018-09-25] MEDS: ENOXAPARIN 40 MG/0.4 ML SYRINGE (J1650) SC SCH (08:26)
[2018-09-25] MEDS: DRONEDARONE 400 MG TAB (MULTAQ) PO SCH ×2 (08:26→18:06)
[2018-09-25] MEDS ORDERED: POTASSIUM CHLORIDE 10 MEQ SR TABLET PO ONE (13:00)
--- NOTE | 2018-09-25 13:45 | IPN ---
DATE: 09/25/2018 Mr. Henrik Cabrera was seen earlier this morning, he was laying supine in bed in no acute distress at rest. He stated he feels better and has been doing more walking activities. His shortness of breath has improved. He denies any chest pain or palpitations. There is no report of bleeding. There is no focal manifestation. He was seen yesterday, covering for Dr. Arellano. He was admitted with diastolic heart failure and also was found by a CT scan of the chest to have pneumonia. He is now on IV antibiotics. He is also on IV furosemide. PHYSICAL EXAMINATION: The patient is alert and oriented, in no acute distress at rest. His most recent vital signs reveal a blood pressure of 100/62 with a pulse of 76, respirations 20 and his maximum temperature is 97.1 degrees, with an oxygen saturation of 96% on 3 liters cannula. He has a negative fluid balance of 980 mL for 09/24/2018. His weight today was reported to as 75.3 kg and yesterday it was 73.3 kg, probably artifactual. He has been in a negative fluid balance since hospitalization on 09/21/2018. Examination of the Head: Atraumatic. Neck is supple and no jugular venous distention (JVD) appreciated. Lungs: Did not reveal any wheezing, but minimal crackles. Heart examination revealed regular heartbeats without gallops. The PMI is not displaced. There is no rub. Abdomen is soft. Extremities reveal trace bilateral ankle and lower leg edema. Neurologic Examination: Negative for focal deficit. LABORATORY DATA: CBC revealed a WBC of 3.7, hemoglobin 8.5, hematocrit 27.6 and platelets 127,000. BMP revealed a sodium of 133, potassium 3.3, chloride 92, CO2 33, BUN 21, creatinine 0.69, GFR more than 60, fasting glucose 116 and calcium 8.1. Serum magnesium is 2.0. IMPRESSION: Shortness of breath, probably related to a combination of factors such as some degree of diastolic heart failure, bilateral pleural effusion and pneumonia reported on CT on 09/23/2018. The patient stated today he feels better and has been ambulating. He has been on IV antibiotics started about 2 days ago. We will continue current management. I have noticed that his serum potassium is low and a dose of 20 mEq of potassium was given to him. Regarding his pleural effusion, he might benefit from pulmonary evaluation and a cardiac thoracic surgeon evaluation for thoracentesis. I will continue to monitor him along with you. Please do not hesitate to call if any questions.
--- NOTE | 2018-09-25 15:03 | IPNPDOC ---
Subjective Date Seen The patient was seen on 09/25/18. Subjective Chief Complaint/HPI minimal DUFFY s cough Constitutional: Denies: Chills Eyes: Denies: Pain ENT: Denies: Head Aches, Ear Pain Skin: Denies: Rash Pulmonary: Reports: Dyspnea Cardiovascular: Denies: Chest Pain Objective Physical Examination General Exam: Positive: Alert, No Acute Distress ENT Exam: Positive: Mucous membr. moist/pink Chest Exam: Positive: Rales (B scattered ), Diminished (R>L); Negative: Normal air movement (fine bibasilar rales) Heart Exam: Positive: Rate Normal, Normal S1, Normal S2 Abdomen Exam: Positive: Normal bowel sounds, Soft; Negative: Tenderness Extremity Exam: Positive: Edema (1 + BLE) Neuro Exam: Positive: Normal Speech Psych Exam: Positive: Mood NL Assessment /Plan Problems (1) Leukopenia Status: Chronic Problem Text: c NCNC anemia has required Neupogen c each R-CHOP cycle 09/25 WBC 3.7 from 5.3(84//6 meta/myelo), hgb 8.5 (2) Acute on chronic diastolic (congestive) heart failure Status: Acute Problem Text: NN -6.6L since admission .3, 0.9-extra 20 K given 09/24 3.7, cr 0.8, continue fur 80 IV q6H, K 10 BID 09/21/18 TTE: IMPRESSION: 1. Normal global left ventricular systolic function with mild concentric left ventricular hypertrophy. There is some features of left ventricular diastolic dysfunction manifested by abnormal relaxation. 2. Aortic valve sclerosis without stenosis or aortic regurgitation. 3. Mitral annulus calcification with trace mitral regurgitation. 4. Mild tricuspid regurgitation with probably moderate pulmonary hypertension. The right heart chambers appear to be mildly enlarged in limited views. 5. Small pericardial effusion was noted, no evidence of cardiac tamponade. 6. This was compared with most recent echocardiogram on 05/09/2018, at that time, the right heart chambers appeared to be normal. The patient then was tachycardiac. DD: CAREY SOW MD 09/22/18 0134 DT: CHANTELLE 09/22/18 0858 (3) Multifocal pneumonia Status: Acute Problem Text: D2 cefepime 2 TID/vanco 15-20 trough (previous 2D ceftriaxone 2 gm) was to receive 6th of 6 cycle R-CHOP on 09/21/18, but held 2 dyspnea c hypoxia/ch ills-worsening x 4D prior remains Jessika@ ~93% on 3L NC (baseline does not require 02)//baseline SBP 90-100 09/25 clinically improving, repeat CRP/ESR, CXR 09/24 AF since admission, WBC 5.3 (09/21 5.3 but 5% meta/myelo); changed regimen to cover HAP in immunocompromised, check urinary pn, fungal Ab; unable to produce sputum for CX, CRP/ESR 09/23/18 CTA chest: 1. Significant bilateral infiltrates compatible with multifocal pneumonia and accompanying bilateral moderate to large pleural effusions. 2. No pulmonary embolus. 09/21/18 BCX2 NG (4) Large B-cell lymphoma Status: Acute Problem Specific Plan: Monitor Clinically Problem Text: 10/06 R-CHOP held follows c WCTC (5) Paroxysmal atrial fibrillation Status: Chronic Response to Treatment: Stable Problem Text: remains SR on HD met tar 25 q6H, drone 400 BID (6) Physical deconditioning Status: Chronic Problem Text: 09/25 + PT Plan/VTE VTE Prophylaxis Ordered?: Yes VS, I&O, 24H, Fishbone Vital Signs/I&O Vital Signs Date Time Temp Pulse Resp B/P (MAP) Pulse Ox O2 Delivery O2 Flow Rate FiO2 09/25/18 12:00 97.1 76 20 100/62 (75) 96 3.0 09/21/18 13:41 Nasal Cannula I&O- Last 24 Hours up to 6 AM 09/25/18 06:00 Intake Total 1460 ml Output Total 2250 ml Balance -790 ml Laboratory Data 24H LABS Laboratory Tests 2 09/24/18 17:00: Bedside Glucose (Misc Panel) 137H 09/24/18 20:36: Bedside Glucose (Misc Panel) 155H 09/25/18 06:19: Immature Granulocyte % (Auto) , White Blood Count 3.7L, Red Blood Count 3.26L, Hemoglobin 8.5L, Hematocrit 27.6L, Mean Corpuscular Volume 84.7, Mean Corpuscular Hemoglobin 26.1L, Mean Corpuscular Hemoglobin Concent 30.8L, Red Cell Distribution Width 17.7H, Platelet Count 227, Lymphocytes # (Auto) , Nuclea alexandra Red Blood Cells % (auto) 0.0, Neutrophils 84H, Lymphocytes (Manual) 5L, Monocytes (Manual) 3, Eosinophils (Manual) 2, Metamyelocytes 2H, Myelocytes 4H, Platelet Estimate NORMAL, Rouleau 1+, Anion Gap 8, Glomerular Filtration Rate > 60.0, Blood Urea Nitrogen 21H, Creatinine 0.69L, Sodium Level 133L, Potassium Level 3.3L, Chloride Level 92L, Carbon Dioxide Level 33H, Calcium Level 8.1L, Magnesium Level 2.0, Procalcitonin 0.27 09/25/18 12:07: Bedside Glucose (Misc Panel) 103 CBC/BMP Laboratory Tests 09/25/18 06:19 Red Blood Count 3.26 L, Mean Corpuscular Volume 84.7, Mean Corpuscular Hemoglobin 26.1 L, Mean Corpuscular Hemoglobin Concent 30.8 L, Red Cell Distribution Width 17.7 H, Lymphocytes # (Auto) , Calcium Level 8.1 L Microbiology Microbiology 09/21/18 Blood Culture - Preliminary, Resulted No Growth after 72 hours. All specime... 09/21/18 Blood Culture - Preliminary, Resulted No Growth after 72 hours. All specime... Hermann Echols M.D. September 25, 2018 15:03
--- NOTE | 2018-09-25 15:43 | REP ---
Clinical: Respiratory failure. Technique: PA and lateral. Comparison: 09/23/2018. Findings: Diffuse bilateral alveolar and interstitial infiltrates (right greater than left) are again noted and may be slightly increased. Small pleural effusions are suggested and remains stable. No pneumothorax. Cardiac silhouette is normal. Skeletal structures are intact. Fruobm-H-Cmiz with tip in the SVC unchanged. Impression: 1. Diffuse bilateral infiltrates which may be slightly increased from prior examination. 2. Bilateral pleural effusions remain stable. Electronically Signed by Bill Angel MD 09/25/2018 03:34 P
[2018-09-26] VITALS (11 sets, daily range): BP systolic 84–98; BP diastolic 48–64
[2018-09-26] MEDS: METOPROLOL TART 25 MG TABLET PO SCH ×4 (04:00→22:00)
[2018-09-26] MEDS: VANCOMYCIN HCL 500 MG in D5W MINI-BAG PLUS 100 ML IV SCH ×2 (04:59→17:38)
[2018-09-26 05:59] LABS: HEMATOCRIT 28.8 % (42.0-52.0); MEAN CORPUSCULAR HGB CONC 31.3 g/dl (32.0-36.5); MEAN CORPUSCULAR VOLUME 86.5 fl (80.0-96.0); PLATELET COUNT, AUTOMATED 218 10^3/uL (150-450); RED BLOOD COUNT 3.33 10^6/uL (4.30-6.10); WHITE BLOOD COUNT 3.7 10^3/uL (4.0-10.0)
[2018-09-26] MEDS: FUROSEMIDE 100 MG/10 ML VIAL (J1940) IV SCH ×2 (06:00)
[2018-09-26] MEDS: VANCOMYCIN HCL 750 MG, VIAL MATE ADAPTER 1 EACH in D5W 250 ML IV SCH ×2 (06:18→18:39)
[2018-09-26] MEDS: SLF 3 ML SYR IV SCH ×3 (06:18→22:02)
[2018-09-26 06:22] LABS: BLOOD UREA NITROGEN 24 MG/DL (7-18); C REACTIVE PROTEIN QUANTITATIV 2.32 MG/DL (0.00-0.30); CALCIUM LEVEL 7.8 MG/DL (8.8-10.2); CARBON DIOXIDE LEVEL 32 MEQ/L (21-32); CHLORIDE LEVEL 95 MEQ/L (98-107); CREATININE FOR GFR 0.75 MG/DL (0.70-1.30); FERRITIN 1258 NG/ML (26-388); GLOMERULAR FILTRATION RATE > 60.0 (>49); GLUCOSE, FASTING 102 MG/DL (70-100); IRON (FE) 32 UG/DL (65-175); MAGNESIUM LEVEL 2.2 MG/DL (1.8-2.4); PERCENT SATURATION 17.6 % (19.7-50.0); POTASSIUM SERUM 3.9 MEQ/L (3.5-5.1); SODIUM LEVEL 133 MEQ/L (136-145); TOTAL IRON BINDING CAPACITY 182 UG/DL (250-450)
[2018-09-26 06:36] LABS: BASOPHILS 1 % (0-4); EOSINOPHILS 1 % (0-5); LYMPHOCYTES 3 % (16-52); METAMYELOCYTES 3 % (0-0); MONOCYTES 17 % (0-8); MYELOCYTES 4 % (0-0); NEUTROPHILS 70 % (35-75); PLATELET ESTIMATE NORMAL (NORMAL)
[2018-09-26 06:37] LABS: ANISOCYTOSIS 1+
[2018-09-26 06:38] LABS: OVALOCYTES 1+
[2018-09-26 06:40] LABS: HYPOCHROMASIA 1+
[2018-09-26 06:45] LABS: ERYTHROCYTE SEDIMENTATION RATE 60 mm/hr (0-20)
[2018-09-26] MEDS: CEFEPIME HCL 2 GM in D5W MINI-BAG PLUS 50 ML IV SCH ×3 (08:03→22:02)
[2018-09-26] MEDS: ENOXAPARIN 40 MG/0.4 ML SYRINGE (J1650) SC SCH (08:04)
[2018-09-26] MEDS: DRONEDARONE 400 MG TAB (MULTAQ) PO SCH ×2 (08:04→18:39)
[2018-09-26] MEDS: POTASSIUM CHLORIDE 10 MEQ SR TABLET PO SCH ×2 (08:04→22:01)
[2018-09-26] MEDS: HumaLOG INSULIN (NovoLOG) PER UNIT SC SCH ×4 (08:05→21:00)
[2018-09-26 09:27] LABS: VITAMIN B12 LEVEL 1123 PG/ML (247-911)
--- NOTE | 2018-09-26 10:55 | IPNPDOC ---
Subjective Date Seen The patient was seen on 09/26/18. Subjective Chief Complaint/HPI Ambulating with Pt this am - more steady, but sats dropped into the 80s on 2L with walking up stairs. Pulmonary: Reports: Dyspnea; Denies: Cough Cardiovascular: Denies: Chest Pain, Palpitations Gastrointestinal: Denies: Nausea, Vomiting, Abdominal Pain, Diarrhea, Constipation Objective Physical Examination General Exam: Positive: Alert, No Acute Distress ENT Exam: Positive: Mucous membr. moist/pink Chest Exam: Positive: Rales (B scattered ), Diminished (R>L); Negative: Normal air movement (fine bibasilar rales) Heart Exam: Positive: Rate Normal, Normal S1, Normal S2 Abdomen Exam: Positive: Normal bowel sounds, Soft; Negative: Tenderness Extremity Exam: Positive: Edema (1 + BLE) Neuro Exam: Positive: Normal Speech Psych Exam: Positive: Mood NL Assessment /Plan Problems (1) Leukopenia Status: Chronic Problem Text: c NCNC anemia has required Neupogen c each R-CHOP cycle 09/26 WBC 3.7 from 5.3(84//6 meta/myelo), hgb 9.0 (2) Acute on chronic diastolic (congestive) heart failure Status: Acute Problem Text: 09/26 - Still appears clinically decompensated, but BP soft. Lasix held last 3 doses. Still diuresed well I will cut back from 80 Q6H to 40 Q12H to see if BP will tolerate this better (Usual HD is 40 BID) .3, 0.9-extra 20 K given 09/24 3.7, cr 0.8, continue fur 80 IV q6H, K 10 BID 09/21/18 TTE: IMPRESSION: 1. Normal global left ventricular systolic function with mild concentric left ventricular hypertrophy. There is some features of left ventricular diastolic dysfunction manifested by abnormal relaxation. 2. Aortic valve sclerosis without stenosis or aortic regurgitation. 3. Mitral annulus calcification with trace mitral regurgitation. 4. Mild tricuspid regurgitation with probably moderate pulmonary hypertension. The right heart chambers appear to be mildly enlarged in limited views. 5. Small pericardial effusion was noted, no evidence of cardiac tamponade. 6. This was compared with most recent echocardiogram on 05/09/2018, at that time, the right heart chambers appeared to be normal. The patient then was tachycardiac. DD: CAREY SOW MD 09/22/18 0134 0858 (3) Multifocal pneumonia Status: Acute Problem Text: D3 cefepime 2 TID/vanco 15-20 trough (previous 2D ceftriaxone 2 gm) was to receive 6th of 6 cycle R-CHOP on 09/21/18, but held 2 dyspnea c h ypoxia/chills-worsening x 4D prior remains Jessika@ ~93% on 3L NC (baseline does not require 02)//baseline SBP 90-100 09/25 clinically improving, repeat CRP/ESR, CXR 09/24 AF since admission, WBC 5.3 (09/21 5.3 but 5% meta/myelo); changed regimen to cover HAP in immunocompromised, check urinary pn, fungal Ab; unable to produce sputum for CX, CRP/ESR 09/23/18 CTA chest: 1. Significant bilateral infiltrates compatible with multifocal pneumonia and accompanying bilateral moderate to large pleural effusions. 2. No pulmonary embolus. 09/21/18 BCX2 NG (4) Large B-cell lymphoma Status: Acute Problem Specific Plan: Monitor Clinically Problem Text: 10/06 R-CHOP held follows c WCTC (5) Paroxysmal atrial fibrillation Status: Chronic Response to Treatment: Stable Problem Text: remains SR on HD met tar 25 q6H, drone 400 BID (6) Physical deconditioning Status: Chronic Problem Text: 09/25 + PT Plan/VTE VTE Prophylaxis Ordered?: Yes Plan Patient seen and examined. Case reviewed with RPA who documented encounter. Also discussed with bank worker, Dr. Sow. Patient feels that antibiotics have made the most difference with his breathing. VS, I&O, 24H, Fishbone Vital Signs/I&O Vital Signs Date Time Temp Pulse Resp B/P (MAP) Pulse Ox O2 Delivery O2 Flow Rate FiO2 09/26/18 09:48 98/58 (71) 09/26/18 08:00 2.0 09/26/18 08:00 97.8 80 18 100 09/21/18 13:41 Nasal Cannula I&O- Last 24 Hours up to 6 AM 09/26/18 06:00 Intake Total 1255 ml Output Total 1900 ml Balance -645 ml Laboratory Data 24H LABS Laboratory Tests 2 09/25/18 12:07: Bedside Glucose (Misc Panel) 103 09/25/18 16:23: Vancomycin Level Trough 15.6 09/25/18 17:33: Bedside Glucose (Misc Panel) 91 09/25/18 20:08: Bedside Glucose (Misc Panel) 156H 09/26/18 05:35: Immature Granulocyte % (Auto) , White Blood Count 3.7L, Red Blood Count 3.33L, Hemoglobin 9.0L, Hematocrit 28.8L, Mean Corpuscular Volume 86.5, Mean Corpuscular Hemoglobin 27.0, Mean Corpuscular Hemoglobin Concent 31.3L, Red Cell Distribution Width 17.4H, Platelet Count 218, Lymphocytes # (Auto) , Nucleated Red Blood Cells % (auto) 0.0, Neutrophils 70, Band Neutrophils 1, Lymphocytes ( Manual) 3L, Monocytes (Manual) 17H, Eosinophils (Manual) 1, Basophils (Manual) 1, Metamyelocytes 3H, Myelocytes 4H, Platelet Estimate NORMAL, Hypochromasia 1+, Anisocytosis 1+, Ovalocytes 1+, Erythrocyte Sedimentation Rate 60H, Anion Gap 6L, Glomerular Filtration Rate > 60.0, Blood Urea Nitrogen 24H, Creatinine 0.75, Sodium Level 133L, Potassium Level 3.9, Chloride Level 95L, Carbon Dioxide Level 32, Calcium Level 7.8L, Magnesium Level 2.2, Iron Level 32L, Total Iron Binding Capacity 182L, Transferrin % Saturation 17.6L, Ferritin 1258H, C-Reactive Protein, Quantitative 2.32H, Vitamin B12 Level 1123H CBC/BMP Laboratory Tests 09/26/18 05:35 Red Blood Count 3.33 L, Mean Corpuscular Volume 86.5, Mean Corpuscular Hemoglobin 27.0, Mean Corpuscular Hemoglobin Concent 31.3 L, Red Cell Distribution Width 17.4 H, Lymphocytes # (Auto) , Calcium Level 7.8 L Microbiology Microbiology 09/21/18 Blood Culture - Preliminary, Resulted No Growth after 72 hours. All specime... 09/21/18 Blood Culture - Final, Complete NO GROWTH AFTER 5 DAYS JILL NOGUEIRA PA-C September 26, 2018 10:55 Greg Angel M.D. September 26, 2018 15:02
[2018-09-26] MEDS: FUROSEMIDE 40 MG/4 ML VIAL (J1940) IV SCH ×2 (11:41→17:00)
--- NOTE | 2018-09-26 19:49 | IPN ---
DATE: 09/26/2018 The patient was seen earlier this morning, he was sitting in a chair in his room in no acute distress at rest. He denies any chest pain or palpitations. He stated that his shortness of breath has improved and his pedal edema has been stable. There is no report of bleeding. He was seen yesterday and his serum potassium was low and he was given an extra dose of KCl supplement by mouth. There is no focal manifestation. He continues to be on IV antibiotics. PHYSICAL EXAMINATION: The patient is alert and oriented, in no acute distress at rest, and his vital signs earlier today was 98/62 with a pulse of 80, respiration 18, and his maximum temperature was 97.8 degrees Fahrenheit with an oxygen saturation of 100 % on 2 liters nasal cannula. He has a negative fluid balance of about 1.4 liters for 09/25/2018. Examination of the head: Atraumatic. Neck: Neck is supple without JVD appreciated while sitting in chair. Lungs: Revealed minimal crackles at the bases but no wheezing. The heart examination revealed a normal S1 and S2 without gallops. The PMI is not displaced. There is no rub. Abdomen is soft and nontender. Extremities reveal trace bilateral lower leg and pedal edema. Neurological examination is negative for focal deficit. LABORATORY DATA: BMP done today revealed a sodium of 133, potassium 3.9, chloride 95, CO2 32, BUN 24, creatinine 0.75, GFR more than 60, fasting glucose 102, and calcium 7.8. Serum magnesium is 2.2. Anemia workup revealed a total iron of 32 with a TIBC of 182, ferritin 1258, and transferrin saturation of 17.6. Serum C-reactive protein is 2.3. Serum vitamin B12 is 1123. Vancomycin trough was reported to be 18.8. Chest x-ray done yesterday, 09/25/2018, revealed diffuse bilateral pulmonary infiltrates and stable bilateral pleural effusion, small. No cardiomegaly. IMPRESSION: 1. Status post congestive heart failure secondary to left ventricular diastolic dysfunction in the setting of bilateral pulmonary infiltrates and probably pneumonia on chest CT on 09/23/2018. The patient today feels better and has been ambulating. He is on IV antibiotics and is being monitored by his primary physician coverage. His heart failure seems to be stable, currently on furosemide and a small dose of short-acting beta-braden with metoprolol tartrate. Echocardiogram done this hospitalization revealed a normal global left ventricular systolic function. Will continue current management, will need to monitor closely his BUN, creatinine and electrolytes. 2. Atrial fibrillation, paroxysmal in nature and currently on Multaq as well as the beta braden. He has been in normal sinus rhythm since this hospitalization. 3. Bilateral pulmonary infiltrates, pneumonia, pleural effusion. This is being addressed. 4. Lymphoma, large B cell lymphoma and the patient was on chemotherapy and being monitored by hematology/oncology in [facility] specialty [facility] at [facility]. 5. Anemia, stable and this is being monitored. 6. History of diabetes mellitus, being addressed, on insulin. 7. Electrolyte abnormalities, status post hypokalemia. Now corrected.
[2018-09-27 04:00] VITALS: BP 96/68
[2018-09-27] MEDS: METOPROLOL TART 25 MG TABLET PO SCH ×4 (04:00→21:08)
[2018-09-27] MEDS: VANCOMYCIN HCL 500 MG in D5W MINI-BAG PLUS 100 ML IV SCH ×2 (05:04→17:05)
[2018-09-27 05:28] LABS: HEMATOCRIT 28.5 % (42.0-52.0); HEMOGLOBIN 8.8 g/dl (13.5-17.5); MEAN CORPUSCULAR HEMOGLOBIN 26.7 pg (27.0-33.0); MEAN CORPUSCULAR HGB CONC 30.9 g/dl (32.0-36.5); MEAN CORPUSCULAR VOLUME 86.4 fl (80.0-96.0); PLATELET COUNT, AUTOMATED 199 10^3/uL (150-450); WHITE BLOOD COUNT 3.7 10^3/uL (4.0-10.0)
[2018-09-27 05:54] LABS: BLOOD UREA NITROGEN 18 MG/DL (7-18); CALCIUM LEVEL 7.9 MG/DL (8.8-10.2); CARBON DIOXIDE LEVEL 30 MEQ/L (21-32); CHLORIDE LEVEL 97 MEQ/L (98-107); CREATININE FOR GFR 0.54 MG/DL (0.70-1.30); GLOMERULAR FILTRATION RATE > 60.0 (>49); GLUCOSE, FASTING 89 MG/DL (70-100); MAGNESIUM LEVEL 2.4 MG/DL (1.8-2.4); POTASSIUM SERUM 4.3 MEQ/L (3.5-5.1); SODIUM LEVEL 135 MEQ/L (136-145)
[2018-09-27 06:15] LABS: ANISOCYTOSIS 1+; BASOPHILS 1 % (0-4); HYPOCHROMASIA 1+; LYMPHOCYTES 5 % (16-52); METAMYELOCYTES 2 % (0-0); MONOCYTES 12 % (0-8); NEUTROPHILS 78 % (35-75); PLATELET ESTIMATE NORMAL (NORMAL)
[2018-09-27] MEDS: VANCOMYCIN HCL 750 MG, VIAL MATE ADAPTER 1 EACH in D5W 250 ML IV SCH ×2 (06:40→18:30)
[2018-09-27] MEDS: SLF 3 ML SYR IV SCH ×3 (06:40→21:08)
[2018-09-27] MEDS: HumaLOG INSULIN (NovoLOG) PER UNIT SC SCH ×4 (07:30→21:00)
[2018-09-27 08:00] VITALS: BP 100/65
[2018-09-27] MEDS: ENOXAPARIN 40 MG/0.4 ML SYRINGE (J1650) SC SCH (08:06)
[2018-09-27] MEDS: DRONEDARONE 400 MG TAB (MULTAQ) PO SCH ×2 (08:06→17:04)
[2018-09-27] MEDS: POTASSIUM CHLORIDE 10 MEQ SR TABLET PO SCH ×2 (08:06→21:05)
[2018-09-27] MEDS: CEFEPIME HCL 2 GM in D5W MINI-BAG PLUS 50 ML IV SCH ×3 (08:06→23:09)
[2018-09-27] MEDS: FUROSEMIDE 40 MG/4 ML VIAL (J1940) IV SCH ×2 (08:07→16:16)
--- NOTE | 2018-09-27 09:06 | IPNPDOC ---
Subjective Date Seen The patient was seen on 09/27/18. Subjective Chief Complaint/HPI DYSPNEA Events since last encounter Patient continues to experience DUFFY. Oxygen slowly weaned to 2LNC. Does not use oxygen at baseline at home. Has diuresed. BP soft with diuresis. Remains rate controlled on current medications. Has remained afebrile. Constitutional: Reports: Fatigue; Denies: Chills, Fever, Night Sweats Pulmonary: Reports: Dyspnea Cardiovascular: Denies: Chest Pain, Palpitations, Orthopnea, Paroxysmal Noc. Dyspnea, Lt Headedness Gastrointestinal: Denies: Nausea, Vomiting, Abdominal Pain, Diarrhea, Constipation Psych: Reports: Mood Normal; Denies: Depression, Memory Issues Objective Physical Examination General Exam: Positive: Alert, No Acute Distress ENT Exam: Positive: Mucous membr. moist/pink Chest Exam: Positive: Rales, Diminished (R>L) Heart Exam: Positive: Rate Normal, Normal S1, Normal S2 Abdomen Exam: Positive: Normal bowel sounds, Soft; Negative: Tenderness Extremity Exam: Positive: Edema (1 + BLE) Neuro Exam: Positive: Normal Speech Psych Exam: Positive: Mood NL Assessment /Plan Problems (1) Leukopenia Status: Chronic Problem Text: c NCNC anemia has required Neupogen c each R-CHOP cycle 09/26 WBC 3.7 from 5.3(84// meta/myelo), hgb 9.0 (2) Acute on chronic diastolic (congestive) heart failure Status: Acute Problem Text: 09/26 - Still appears clinically decompensated, but BP soft. Lasix held last 3 doses. Still diuresed well I will cut back from 80 Q6H to 40 Q12H to see if BP will tolerate this better (Usual HD is 40 BID) .3, 0.9-extra 20 K given 09/24 3.7, cr 0.8, continue fur 80 IV q6H, K 10 BID 09/21/18 TTE: IMPRESSION: 1. Normal global left ventricular systolic function with mild concentric left ventricular hypertrophy. There is some features of left ventricular diastolic dysfunction manifested by abnormal relaxation. 2. Aortic valve sclerosis without stenosis or aortic regurgitation. 3. Mitral annulus calcification with trace mitral regurgitation. 4. Mild tricuspid regurgitation with probably moderate pulmonary hypertension. The right heart chambers appear to be mildly enlarged in limited views. 5. Small pericardial effusion was noted, no evidence of cardiac tamponade. 6. This was compared with most recent echocardiogram on 05/09/2018, at that time, the right heart chambers appeared to be normal. The patient then was tachycardiac. DD: CAREY SOW MD 09/22/18 0134 DT: CHANTELLE 09/22/18 0858 (3) Multifocal pneumonia Status: Acute Problem Text: 09/27/18: Pulmonology consult with new infiltrates, effusion. Patient agreeable. D4 cefepime 2 TID/vanco 15-20 trough (previous 2D ceftriaxone 2 gm) was to receive 6th of 6 cycle R-CHOP on 09/21/18, but held 2 dyspnea c hypoxi a/chills-worsening x 4D prior remains Jessika@ ~93% on 3L NC (baseline does not require 02)//baseline SBP 90-100 09/25 clinically improving, repeat CRP/ESR, CXR 09/24 AF since admission, WBC 5.3 (09/21 5.3 but 5% meta/myelo); changed regimen to cover HAP in immunocompromised, check urinary pn, fungal Ab; unable to produce sputum for CX, CRP/ESR 09/23/18 CTA chest: 1. Significant bilateral infiltrates compatible with multifocal pneumonia and accompanying bilateral moderate to large pleural effusions. 2. No pulmonary embolus. 09/21/18 BCX2 NG (4) Large B-cell lymphoma Status: Acute Problem Specific Plan: Monitor Clinically Problem Text: 10/06 R-CHOP held follows c WCTC (5) Paroxysmal atrial fibrillation Status: Chronic Response to Treatment: Stable Problem Text: remains SR on HD met tar 25 q6H, drone 400 BID (6) Physical deconditioning Status: Chronic Problem Text: 09/25 + PT Plan/VTE VTE Prophylaxis Ordered?: Yes VS, I&O, 24H, Fishbone Vital Signs/I&O Vital Signs Date Time Temp Pulse Resp B/P (MAP) Pulse Ox O2 Delivery O2 Flow Rate FiO2 09/27/18 04:00 2.0 09/27/18 04:00 96.8 86 18 96/68 (77) 95 09/21/18 13:41 Nasal Cannula I&O- Last 24 Hours up to 6 AM 09/27/18 06:00 Intake Total 1145 ml Output Total 1300 ml Balance -155 ml Laboratory Data 24H LABS Laboratory Tests 2 09/26/18 11:36: Bedside Glucose (Misc Panel) 143H 09/26/18 15:34: Vancomycin Level Trough 18.8 09/26/18 17:30: Bedside Glucose (Misc Panel) 96 09/26/18 20:07: Bedside Glucose (Misc Panel) 128H 09/27/18 05:18: Immature Granulocyte % (Auto) , White Blood Count 3.7L, Red Blood Count 3.30L, Hemoglobin 8.8L, Hematocrit 28.5L, Mean Corpuscular Volume 86.4, Mean Corpuscular Hemoglobin 26.7L, Mean Corpuscular Hemoglobin Concent 30.9L, Red Cell Distribution Width 17.6H, Platelet Count 199, Lymphocytes # (Auto) , Nucleated Red Blood Cells % (auto) 0.0, Neutrophils 78H, Band Neutrophils 2, Lymphocytes (Manual) 5L, Monocytes (Manual) 12H, Basophils (Manual) 1, Metamyelocytes 2H, Platelet Estimate NORMAL, Hypochromasia 1+, Basophilic Stippling 1+, Anisocytosis 1+, Anion Gap 8, Glomerular Filtration Rate > 60.0, Blood Urea Nitrogen 18, Creatinine 0.54L, Sodium Level 135L, Potassium Level 4.3, Chloride Level 97L, Carbon Dioxide Level 30, Calcium Level 7.9L, Magnesium Level 2.4 CBC/BMP Laboratory Tests 09/27/18 05:18 Red Blood Count 3.30 L, Mean Corpuscular Volume 86.4, Mean Corpuscular Hemoglobin 26.7 L, Mean Corpuscular Hemoglobin Concent 30.9 L, Red Cell Distribution Width 17.6 H, Lymphocytes # (Auto) , Calcium Level 7.9 L Microbiology Microbiology 09/21/18 Blood Culture - Final, Complete NO GROWTH AFTER 5 DAYS 09/21/18 Blood Culture - Final, Complete NO GROWTH AFTER 5 DAYS Attending Note Attending Note reviewed plan of care with patient. asked good questions. appreciated input from Jael Mcdaniels September 27, 2018 09:06 Justus Woods MD September 27, 2018 16:52
--- NOTE | 2018-09-27 09:08 | IPN ---
DATE: 09/27/2018 Mr. Cabrera tells me that he is feeling better. He is less short of breath and has less cough but still is short of breath with fairly mild activity. He does not have any paroxysmal nocturnal dyspnea. No chest pain. Blood pressure 96/68, heart rate has been in 80s, regular, afebrile. Saturation 95% on 2 liters of oxygen. Fluid balance yesterday was documented about positive 380. Weight is 74.8, which is not markedly different from 5 days ago, but is down about 2 kg since admission. He is alert and oriented and appropriate. Jugular venous pressure is not elevated. Lungs are reasonably clear to auscultation but for diminished breath sounds over both bases. Heart exam has regular rhythm. No gallop or rub. Abdomen is soft, nontender. There is still 1 to 2+ edema to knees. Neurologically, he is intact. LABORATORY Hemoglobin 8.8, hematocrit 25.8, platelet count 199, white blood cell count 3.7. Basic metabolic panel: Sodium 135, potassium 4.5, BUN 18, creatinine 0.5, glucose 89. ASSESSMENT/PLAN Mr. Cabrera is a 63-year-old man who presented with worsening shortness of breath that was definitely a component of heart failure but at this point I am convinced that the principal problem is actually pulmonary. He has diffuse bilateral infiltrates and large pleural effusions. The pulmonary team is involved. From cardiac perspective, I do not think that we need to push more diuretics compared to his current 40 twice a day. He has diastolic heart failure in nature, so no other will have any significant benefit. As far as the atrial fibrillation is concerned, I would continue his current Multaq and metoprolol. MTDD
--- NOTE | 2018-09-27 11:44 | CR ---
DATE OF CONSULTATION: 09/27/2018 HISTORY OF PRESENT ILLNESS: The patient is a 63-year-old white male. Past medical history significant for stage IV diffuse B cell lymphoma, paroxysmal atrial fibrillation, chronic borderline hypotension, heart failure with preserved ejection fraction, hypertension, diabetes mellitus type 2, who was admitted to the hospital on 09/21/2018 with the chief complaint of shortness of breath and dyspnea on exertion. The patient reports that approximately 3 days prior to his admission, he began to experience generalized weakness and fatigue. He also mentions some subjective chills at night requiring additional blankets when he sleeps. He states that when he presented for his final round of chemotherapy, he walked from a handicapped spot [facility] and became extremely short of breath. The patient was seen by Dr. Waldron, who suggested he present to the emergency department for further evaluation. Speaking to the patient today, he stated that prior to presentation to the hospital, he did not experience DICTATION ENDS HERE
[2018-09-27 12:00] VITALS: BP 94/66
[2018-09-27] MEDS: OMEPRAZOLE 20 MG CAP PO SCH (12:00)
[2018-09-27] MEDS: predniSONE 20 MG TAB PO SCH (12:00)
--- NOTE | 2018-09-27 12:37 | CR ---
DATE OF CONSULTATION: 09/27/2018 The chief complaint of this patient is shortness of breath, dyspnea on exertion. HISTORY: Henrik Cabrera is a 63-year-old white male patient, primary care Dr. Woods, who was sent to the emergency department by Dr. Waldron, his oncologist, for what appeared to be increasing shortness of breath and dyspnea on exertion. The patient was admitted to the hospital on 09/21/2018. At that time, the patient reported that he was having increasing shortness of breath with exertion, particularly walking greater than five steps. He also noted increased lower extremity edema. The patient does have a past medical history significant for non-Hodgkin lymphoma grade IV for which he has been receiving Rituxan/CHOP therapy for diffuse B cell lymphoma which was diagnosed in May of 2018. He has received five out of the six total cycles and was presenting to Dr. Waldron's office the day of admission to begin his sixth. The patient stated that 3 days prior to his presentation, he noted having muscle aches and weakness and subjective chills at night requiring increased number of blankets. REVIEW OF SYSTEMS: The patient denies any skin changes, including rashes or skin lesions. He denies any headaches. Eyes: He denies any current changes in vision, although he does report a history of blurry vision secondary to chemotherapy. Ears: He denies any changes in his hearing. Mouth and throat: The patient denies any bleeding gums. He denies any epistaxis. Respiratory/cardiac: The patient reports increasing shortness of breath, dyspnea on exertion. DICTATION ENDS HERE
--- NOTE | 2018-09-27 13:41 | CR ---
DATE OF CONSULTATION: 09/27/2018 HISTORY OF PRESENT ILLNESS: Mr. Cabrera is a 63-year-old white male with a past medical history that is significant for stage IV diffuse B cell lymphoma, non-Hodgkin's on chemotherapy, paroxysmal atrial fibrillation, chronic borderline hypotension, and heart failure with preserved ejection fraction and diabetes mellitus type 2 who originally presented to the emergency department on 09/21/2018 after he was recommended to present via his oncologist, Dr. Waldron. The patient states that the day of his admission he was scheduled to report to Dr. Waldron's office for his sixth and final round and chemotherapy. He was walking from a handicapped spot into the building and was found to become really short of breath at that time requiring supplemental oxygen. He states that the days prior he did not have any shortness of breath, but he had noted three days of increasing fatigue and weakness. He also reports that evening he noted some subjective chills, but not rigors. He had to use additional blankets that night because he felt cold. He denies any subjective or objective fevers. No changes in weight. No decrease in appetite. He denies any headaches. No changes in his vision. He has been able to swallow appropriately. He denies any darian chest pain or discomfort, no palpitations, no subjective feeling of tachycardia. The patient also reports an increase in lower extremity swelling/edema. He has not been coughing. He is not producing any sputum. He has no audible wheezing. The patient denies any orthopnea or paroxysmal nocturnal dyspnea (PND) prior to his shortness of breath. He denies any hemoptysis. He denies any nausea or vomiting. No abdominal pains or cramping. He does report an intermittent history of loose stools and this has been chronic for him since starting chemotherapy. He denies any hematuria, difficulty urinating, increased frequency, does report some numbness and tingling in the soles of his feet secondary to his chemotherapy regimen, but denies any numbness or tingling in his hands. He denies any new rashes or lesions. No cold or heat intolerance. Neurologically he denies any episodes of confusion or aphasia. The patient denies any easy bruising or easy bleeding. PAST MEDICAL HISTORY: 1. Significant for non-Hodgkin's lymphoma, stage IV diffuse B cell lymphoma on Rituxan and CHOP therapy. 2. Paroxysmal atrial fibrillation. 3. Chronic borderline hypotension. 4. Heart failure with preserved ejection fraction. 5. Diabetes mellitus type 2. SURGICAL HISTORY: 1. Patient did have an inguinal node biopsy. 2. He did have history of renal stone surgery. 3. Thoracentesis that was performed 04/2018, 2 liters removed. 4. Port-a-Cath placement. SOCIAL HISTORY: The patient does admit to having a history of tobacco use with a pipe. He also used to smoke cigars. The patient has since quit, has not smoked for a number of years. He denies any alcohol use. He denies any illicit drug use. The patient is retired at this time. The patient does report that his sister owned a number of parrots in the 90s, but otherwise no recent bird exposure, no recent travel history, and no recent sick contacts. FAMILY HISTORY: Per medical record, the patients mother did succumb to emphysema, but there is no family history of malignancy. ALLERGIES: No known drug allergies. MEDICATIONS: - Multaq 400 mg twice a day - metoprolol 25 mg daily - albuterol inhaler - Lasix 40 mg daily - Zofran as needed for nausea - Protonix at home 40 mg daily - potassium chloride supplementation - prednisone as part of his chemotherapy REVIEW OF SYSTEMS: As per HPI. The patient denied muscle aches or pains. PHYSICAL EXAMINATION: VITAL SIGNS: Temperature is 96.9, pulse is 80, respiratory rate is 20, blood pressure 100/65 with a mean arterial pressure (MAP) of 77, pulse oximetry is 97 on 2 liters of oxygen. GENERAL: The patient was interviewed and examined in his hospital room. Patient was found to be sitting comfortably in his hospital chair, wearing hospital clothing, in no acute distress. Patient is able to speak in full sentences, answer questions appropriately, and actively participate in his care. HEENT: Normocephalic, atraumatic. Extraocular muscles intact. Pupils equal, round and reactive to light and accommodation. Sclera nonicteric. Mucous membranes are moist. Good oral hygiene. Trachea is midline. NECK: No cervical lymphadenopathy. Jugular venous distention (JVD) is appreciated. CARDIAC: Regular rate and rhythm with a normal S1 and S2. A holosystolic murmur appreciated in the fifth intercostal space in the midclavicular line on the left. The patient does have 1+ pitting edema of his lower extremities bilaterally. PULMONARY: On auscultation, the patient does have bibasilar crackles with fair air movement bilaterally. No wheezing was appreciated. Bibasilar dullness to percussion also noted worse on the right when compared to the left. Patient was ambulated and to demonstrate exertional dyspnea. ABDOMEN: Soft, nontender, nondistended. Bowel sounds appreciated. SKIN: No new rashes, no new changing/evolving skin lesions. EXTREMITIES: Lower extremity edema s noted above, no calf tenderness bilaterally. MUSCULOSKELETAL: There is no joint effusions or limitations to the patient's range of motion, strength is intact. NEUROLOGIC: No focal neurologic deficits. The patient is alert and oriented times three. No signs of aphagia or fascial drooping. PSYCH: Mood and affect are appropriate given the patient's current medical condition. IMAGING: The patient did have a chest x-ray 06/24/2018. Chest x-ray was read as bilateral infiltrates, more so on the right than the left, with bilateral effusions. A vascular ultrasound performed on 09/22/2018 was read as negative for DVT. A subsequent chest x-ray on 09/23/2018 was read as diffuse bilateral multifocal infiltrates right greater than the left, and a small pleural effusion similar to recent prior examination. Findings obviously increased when compared to imaging on 05/10/2018. CT chest angiogram performed on 09/23/2018 demonstrated significant bilateral infiltrates, compatible with multifocal pneumonia and accompanying bilateral moderate to large pleural effusion. No pulmonary emboli. A chest x-ray on 09/25/2018 read as diffuse bilateral infiltrates which may be slightly increased from prior exam. Bilateral pleural effusions that are stable. LABORATORY VALUES: Recent CBC demonstrates a white count of 3.7, hemoglobin and hematocrit of 8.8/28.5. Recent ESR of 60. Chemistries show a sodium of 135, potassium of 35, chloride of 97, BUN of 18 and a creatinine of 0.54, most recent C-reactive protein of 2.32. The patient has serology for blastomyces, histoplasma, aspergillus, strep pneumoniae pending. Venous blood cultures were drawn on 09/21/2018 and were both negative after five days. ASSESSMENT/PLAN: 1. Abnormal chest CT, parenchymal lung disease. Differential diagnoses includes pneumonitis, particularly drug induced, in which case it may be related to the patient's R-CHOP therapy, particularly the rituximab component. Also need to consider viral/fungal pneumonitis as well, although this is extremely rare. Most likely however, the patient likely has a community acquired pneumonia. This is most likely given his three preceding chills and weakness. We also need to consider that his abnormal CT are result of his CHF, which may be secondary the doxorubicin that he has been receiving as part of his chemotherapy as well. As far as treatment, the patient is receiving current antibiotic therapy with vancomycin and cefepime for his community acquired pneumonia. We will be starting the patient on prednisone 40 mg by mouth daily in the event that this drug induced pneumonitis. Additionally, patient will be receiving gastrointestinal (GI) prophylaxis with 40 mg of omeprazole and he will be monitored for clinical improvement. The patient does report that he is feeling some improvement compared to his initial presentation. If there is not notable improvement, bronchoscopy with biopsy will be considered although it is likely to show inflammation and be of little clinical use. A culture however may be beneficial. Also will consider Bactrim for PJP prophylaxis given that the patient will likely require fci prednisone therapy. 2. Pleural effusion. The patient's pleural effusion does not show any significant changes from May. He did receive a prior thoracentesis which demonstrated B cells which is consistent with his lymphoma. Therefore, there is no real indication for thoracentesis at this time, however this will be reconsidered in the future given the patient's clinical improvement. ADDENDUM: I agree with a history and physical as outlined above. I myself performed an independent history and physical. We discussed the assessment and plan as outlined above. Mr. Cabrera is a 63-year-old male with diffuse B-cell lymphoma that has been documented to be present in the CSF, pleural effusion and in a groin lymph node. About to receive his next and last treatment of R-CHOP therapy and noticed weakness and increased shortness breath. He was admitted and was treated for both pneumonia and heart failure. He has new findings of parenchymal infiltrates. Differential remains wide including pneumonia, typical community-acquired pneumonia, atypical pneumonia, fungal pneumonia along with pneumonitis either hypersensitivity or possibly drug induced pneumonitis. At this point in time, a fungal panel is pending. He has had some improvement since his initial presentation. I would therefore continue current treatment, however add prednisone due to the possibility of drug induced pneumonitis. Bronchoscopy was considered however, I believe this will likely be nondiagnostic and simply show inflammation. If however, the infiltrates persist we will reconsider bronchoscopy. At this time, would monitor and repeat CT scan and close followup. Addendum dictated: Sudhakar Cruz DO 09/27/2018 1122 Addendum transcribed: chelsea 09/27/2018 1152 MTDDoug
[2018-09-27 16:00] VITALS: BP 97/61
[2018-09-27 20:00] VITALS: BP 98/52
[2018-09-27 23:59] VITALS: BP 106/57
[2018-09-28 04:00] VITALS: BP 92/50
[2018-09-28] MEDS: METOPROLOL TART 25 MG TABLET PO SCH ×4 (04:00→21:09)
[2018-09-28] MEDS: VANCOMYCIN HCL 500 MG in D5W MINI-BAG PLUS 100 ML IV SCH ×2 (04:50→16:56)
[2018-09-28] MEDS: SLF 3 ML SYR IV SCH ×3 (05:11→21:09)
[2018-09-28] MEDS: VANCOMYCIN HCL 750 MG, VIAL MATE ADAPTER 1 EACH in D5W 250 ML IV SCH ×2 (05:55→17:58)
[2018-09-28] MEDS: CEFEPIME HCL 2 GM in D5W MINI-BAG PLUS 50 ML IV SCH ×3 (06:58→23:29)
[2018-09-28 08:00] VITALS: BP 102/73
[2018-09-28 08:23] LABS: HEMATOCRIT 32.5 % (42.0-52.0); HEMOGLOBIN 9.9 g/dl (13.5-17.5); MEAN CORPUSCULAR HEMOGLOBIN 26.9 pg (27.0-33.0); MEAN CORPUSCULAR HGB CONC 30.5 g/dl (32.0-36.5); MEAN CORPUSCULAR VOLUME 88.3 fl (80.0-96.0); PLATELET COUNT, AUTOMATED 250 10^3/uL (150-450); RED BLOOD COUNT 3.68 10^6/uL (4.30-6.10); WHITE BLOOD COUNT 5.6 10^3/uL (4.0-10.0)
[2018-09-28] MEDS: FUROSEMIDE 40 MG/4 ML VIAL (J1940) IV SCH ×2 (08:25→16:55)
[2018-09-28] MEDS: OMEPRAZOLE 20 MG CAP PO SCH (08:25)
--- NOTE | 2018-09-28 08:25 | IPNPDOC ---
Subjective Date Seen The patient was seen on 09/28/18. Subjective Chief Complaint/HPI pneumonia, b-cell lymphoma Events since last encounter Started on Prednisone 40 mg po daily. States improved symptoms. weaned off of oxygen this am. Pulmonary: Reports: Dyspnea, Cough Cardiovascular: Denies: Chest Pain, Palpitations, Orthopnea, Paroxysmal Noc. Dyspnea, Lt Headedness Gastrointestinal: Denies: Nausea, Vomiting, Abdominal Pain, Diarrhea, Constipation Genitourinary: Denies: Dysuria, Frequency, Incontinence, Retention Psych: Reports: Mood Normal; Denies: Depression, Memory Issues Objective Physical Examination General Exam: Positive: Alert, No Acute Distress ENT Exam: Positive: Mucous membr. moist/pink Chest Exam: Positive: Clear to auscultation (left lung), Rhonchi (right lung), Diminished (R>L) Heart Exam: Positive: Rate Normal, Normal S1, Normal S2 Abdomen Exam: Positive: Normal bowel sounds, Soft; Negative: Tenderness Extremity Exam: Positive: Edema (1 + BLE) Neuro Exam: Positive: Normal Speech Psych Exam: Positive: Mood NL Assessment /Plan Problems (1) Leukopenia Status: Chronic Problem Text: c NCNC anemia has required Neupogen c each R-CHOP cycle 09/26 WBC 3.7 from 5.3(84/5/6 meta/myelo), hgb 9.0 (2) Acute on chronic diastolic (congestive) heart failure Status: Acute Problem Text: 09/28/18: cardiology managing diuretics and plans on backing down on dosage. 09/26 - Still appears clinically decompensated, but BP soft. Lasix held last 3 doses. Still diuresed well I will cut back from 80 Q6H to 40 Q12H to see if BP will tolerate this better (Usual HD is 40 BID) .3, 0.9-extra 20 K given 09/24 3.7, cr 0.8, continue fur 80 IV q6H, K 10 BID 09/21/18 TTE: IMPRESSION: 1. Normal global left ventricular systolic function with mild concentric left ventricular hypertrophy. There is some features of left ventricular diastolic dysfunction manifested by abnormal relaxation. 2. Aortic valve sclerosis without stenosis or aortic regurgitation. 3. Mitral annulus calcification with trace mitral regurgitation. 4. Mild tricuspid regurgitation with probably moderate pulmonary hypertension. The right heart chambers appear to be mildly enlarged in limited views. 5. Small pericardial effusion was noted, no evidence of cardiac tamponade. 6. This was compared with most recent echocardiogram on 05/09/2018, at that time, the right heart chambers appeared to be normal. The patient then was tachycardiac. DD: CAREY SOW MD 09/22/18 0134 DT: CHANTELLE 09/22/18 0858 (3) Multifocal pneumonia Status: Acute Problem Text: 09/28/18: see Pulm note. Improved symptoms with addition of Prednisone. weaning off of oxygen. 09/27/18: Pulmonology consult with new infiltrates, effusion. Patient agreeable. D5 cefepime 2 TID/vanco 15-20 trough (previous 2D ceftriaxone 2 gm) was to receive 6th of 6 cycle R-CHOP on 09/21/18, but held 2 dyspnea c hypoxia/chills-worsening x 4D prior remains Jessika@ ~93% on 3L NC (baseline does not require 02)//baseline SBP 90-100 09/25 clinically improving, repeat CRP/ESR, CXR 09/24 AF since admission, WBC 5.3 (09/21 5.3 but 5% meta/myelo); changed regimen to cover HAP in immunocompromised, check urinary pn, fungal Ab; unable to produc e sputum for CX, CRP/ESR 09/23/18 CTA chest: 1. Significant bilateral infiltrates compatible with multifocal pneumonia and accompanying bilateral moderate to large pleural effusions. 2. No pulmonary embolus. 09/21/18 BCX2 NG (4) Large B-cell lymphoma Status: Acute Problem Specific Plan: Monitor Clinically Problem Text: 10/06 R-CHOP held follows c [facility] (5) Paroxysmal atrial fibrillation Status: Chronic Response to Treatment: Stable Problem Text: remains SR on HD met tar 25 q6H, drone 400 BID (6) Physical deconditioning Status: Chronic Problem Text: 09/25 + PT Plan/VTE VTE Prophylaxis Ordered?: Yes VS, I&O, 24H, Fishbone Vital Signs/I&O Vital Signs Date Time Temp Pulse Resp B/P (MAP) Pulse Ox O2 Delivery O2 Flow Rate FiO2 09/28/18 04:00 2.0 09/28/18 04:00 96.6 72 18 92/50 (64) 100 I&O- Last 24 Hours up to 6 AM 09/28/18 06:00 Intake Total 2080 ml Output Total 2050 ml Balance 30 ml Laboratory Data 24H LABS Laboratory Tests 2 09/27/18 11:36: Bedside Glucose (Misc Panel) 152H 09/27/18 12:23: 09/27/18 16:44: Bedside Glucose (Misc Panel) 177H 09/27/18 20:51: Bedside Glucose (Misc Panel) 218H 09/28/18 07:59: Bedside Glucose (Misc Panel) 117H 09/28/18 08:10: CBC/BMP Microbiology Microbiology 09/21/18 Blood Culture - Final, Complete NO GROWTH AFTER 5 DAYS 09/21/18 Blood Culture - Final, Complete NO GROWTH AFTER 5 DAYS Attending Note Attending Note patient improving significantly since addition of prednisone. May be time to transition to po or stop IV antibiotics. Will defer to Pulmonary business risk consultant. Jael Martínez September 28, 2018 08:25 Justus Woods MD September 28, 2018 10:55
[2018-09-28] MEDS: ENOXAPARIN 40 MG/0.4 ML SYRINGE (J1650) SC SCH (08:26)
[2018-09-28] MEDS: POTASSIUM CHLORIDE 10 MEQ SR TABLET PO SCH ×2 (08:26→21:09)
[2018-09-28] MEDS: DRONEDARONE 400 MG TAB (MULTAQ) PO SCH ×2 (08:26→18:57)
[2018-09-28] MEDS: predniSONE 20 MG TAB PO SCH (08:26)
[2018-09-28] MEDS: HumaLOG INSULIN (NovoLOG) PER UNIT SC SCH ×4 (08:27→21:00)
[2018-09-28 08:42] LABS: BLOOD UREA NITROGEN 17 MG/DL (7-18); CREATININE FOR GFR 0.57 MG/DL (0.70-1.30); GLUCOSE, FASTING 82 MG/DL (70-100)
[2018-09-28 08:43] LABS: CALCIUM LEVEL 9.2 MG/DL (8.8-10.2); CARBON DIOXIDE LEVEL 30 MEQ/L (21-32); CHLORIDE LEVEL 99 MEQ/L (98-107); GLOMERULAR FILTRATION RATE > 60.0 (>49); MAGNESIUM LEVEL 2.4 MG/DL (1.8-2.4); SODIUM LEVEL 135 MEQ/L (136-145)
--- NOTE | 2018-09-28 09:23 | IPN ---
DATE: 09/28/2018 Mr. Cabrera reports fairly dramatic improvement since yesterday and he already reported improvement yesterday. He says that he no longer needs oxygen and he feels much less short of breath. Denies any chest discomfort. He was seen by Dr. Cruz yesterday. The differential diagnosis was reviewed, and she decided to continue current antibiotic coverage, plus add steroids for potential sensitivity pneumonitis, but she decided not to pursue any sample collection either in the form of thoracenteses or bronchoscopy. PHYSICAL EXAMINATION: Blood pressure 92/50, heart rate in 70s sinus rhythm. He is afebrile. Saturation is 100% on 2 liters of oxygen and high 90s on room air. Weight is 78.8 kg. He is alert, oriented, and appropriate. His jugular venous pressure is not high. Lungs sound clear in upper at least three-quarters of the lung, still has diminished breath sounds over bases. Heart exam has regular rhythm. No gallop or rub. Abdomen is soft. He still has about 1+ edema peripherally. LABORATORY: CBC showed WBC count 5.6, hemoglobin 9.9, hematocrit 32, platelet count 250,000. Basic metabolic panel is pending. ASSESSMENT/PLAN: Mr. Cabrera is a 63-year-old man who has stage IV B-cell lymphoma who completed five cycles of chemotherapy. He presented with worsening dyspnea. It was felt that the leading condition initially was congestive heart failure but it is obvious that there is a strong component of pulmonary infiltrates, the etiology which is uncertain and the differential diagnosis is wide. He seems to be improving with empiric management and it will be continued at the direction of the primary team and pulmonology. From perspective of heart failure, I believe that he is close to euvolemic condition and I do not believe that more aggressive diuresis would bring any advantage. As far as the atrial fibrillation is concerned, he has been maintaining sinus rhythm on Multaq and low-dose beta braden, which should be continued.
[2018-09-28 09:26] LABS: ANISOCYTOSIS 1+; LYMPHOCYTES 9 % (16-52); METAMYELOCYTES 2 % (0-0); MONOCYTES 11 % (0-8); MYELOCYTES 1 % (0-0); NEUTROPHILS 75 % (35-75); PLATELET ESTIMATE NORMAL (NORMAL); POIKILOCYTOSIS 1+
--- NOTE | 2018-09-28 09:39 | CCN ---
DATE OF SERVICE: 09/28/2018 Mr. Cabrera is seen in progressive care unit (PCU). He states he is feeling much better since the addition of prednisone which was started yesterday. He states he feels his breathing has been significantly improved, and he is no longer needing supplemental oxygen. His oxygen saturations on room air were 96%. Patient states that he is able to ambulate across his hospital room without any significant dyspnea on exertion. He denies any chest pain. Denies fevers or chills. Overall feels improvement. PHYSICAL EXAM: Temperature 96.7, pulse 77, respiratory 18. Blood pressure 102/73, pulse oximetry is 96% on room air. General: Patient is alert and oriented times three. He is sitting up in a chair. He is able to demonstrate ambulating without any problems. He speaks in complete sentences. He is alert and oriented times three. HEENT: Head is normocephalic, atraumatic. Moist mucous membranes. Neck: Neck is supple. No cervical lymphadenopathy. No jugular venous distention (JVD). Trachea is midline. Cardiac: Regular rate and rhythm. S1, S2. Pulmonary: Small diminished breath sounds, particularly at the bases. Dullness to percussion over the bases. No accessory muscle use. Abdomen: Positive bowel sounds, soft, nontender, no rebound or guarding. Extremities: Patient does have 1+ edema bilateral lower extremities. Neurologic: Nonfocal grossly. Skin is warm and dry. LABS: WBC 5.6, hemoglobin 9.9, hematocrit 32.5, platelets 250. Sodium 135, potassium 4.0, chloride 99, carbon dioxide 30, BUN and 17, creatinine 0.57, glucose 82, calcium 9.2, magnesium 2.4. ASSESSMENT/PLAN: 1. Abnormal chest CT/parenchymal lung disease. Patient is significantly improved after initiation of prednisone yesterday. The etiology of patient's abnormal chest CT is still somewhat in question. We believe that there is an underlying pneumonia, given the appearance on imaging as well as his symptoms, and he is responding to the prednisone and antibiotics. However, the abnormalities noted on CT may also be result of congestive heart failure versus history of lymphoma versus pneumonitis from the current antibiotic therapy. He had been receiving R-CHOP for chemotherapy for B-cell lymphoma. He was due to start his sixth and final around of that prior to this hospitalization. This has been held for now. Since he is improving with the antibiotics and steroids, plan would be to repeat a chest CT in 2 weeks. If the patient does not have notable improvement, then bronchoscopy with biopsy would be considered. At this point in time, bronchoscopy is being held off on as biopsy at this point in time would likely just show information. Patient is close to discharge from a pulmonary standpoint, but we will defer this to his on medical attendings. After discharge, the patient should followup with pulmonary in about 2 weeks for repeat of chest CT and further evaluation. 2. Pleural effusion. Patient has bilateral pleural effusions on chest CT which appear to be relatively unchanged from his prior chest CT in May. At this point, there is no indication for thoracentesis. Will continue to monitor and, as noted, patient will need a repeat chest CT in about 2 weeks' time.
[2018-09-28 12:34] VITALS: BP 90/58
[2018-09-28 16:20] VITALS: BP 121/68
[2018-09-28 22:00] VITALS: BP 107/67
[2018-09-29] MEDS: METOPROLOL TART 25 MG TABLET PO SCH ×2 (04:00→08:49)
[2018-09-29] MEDS: VANCOMYCIN HCL 500 MG in D5W MINI-BAG PLUS 100 ML IV SCH (04:38)
[2018-09-29 06:00] VITALS: BP 94/58
[2018-09-29] MEDS: SLF 3 ML SYR IV SCH ×3 (06:04→21:49)
[2018-09-29] MEDS: VANCOMYCIN HCL 750 MG, VIAL MATE ADAPTER 1 EACH in D5W 250 ML IV SCH ×2 (06:04→17:59)
[2018-09-29 06:36] LABS: HEMATOCRIT 33.2 % (42.0-52.0); MEAN CORPUSCULAR HEMOGLOBIN 26.6 pg (27.0-33.0); MEAN CORPUSCULAR HGB CONC 30.1 g/dl (32.0-36.5); MEAN CORPUSCULAR VOLUME 88.3 fl (80.0-96.0); PLATELET COUNT, AUTOMATED 250 10^3/uL (150-450); RED BLOOD COUNT 3.76 10^6/uL (4.30-6.10); WHITE BLOOD COUNT 4.6 10^3/uL (4.0-10.0)
[2018-09-29] MEDS: CEFEPIME HCL 2 GM in D5W MINI-BAG PLUS 50 ML IV SCH (06:42)
[2018-09-29 06:59] LABS: ALBUMIN 2.8 GM/DL (3.2-5.2); ALT/SGPT 10 U/L (12-78); BILIRUBIN,TOTAL 0.4 MG/DL (0.2-1.0); BLOOD UREA NITROGEN 17 MG/DL (7-18); CALCIUM LEVEL 9.2 MG/DL (8.8-10.2); CARBON DIOXIDE LEVEL 30 MEQ/L (21-32); CHLORIDE LEVEL 101 MEQ/L (98-107); CREATININE FOR GFR 0.63 MG/DL (0.70-1.30); GLOMERULAR FILTRATION RATE > 60.0 (>49); GLUCOSE, FASTING 92 MG/DL (70-100); MAGNESIUM LEVEL 2.2 MG/DL (1.8-2.4); POTASSIUM SERUM 3.8 MEQ/L (3.5-5.1); SODIUM LEVEL 137 MEQ/L (136-145); TOTAL PROTEIN 5.6 GM/DL (6.4-8.2)
[2018-09-29] MEDS: HumaLOG INSULIN (NovoLOG) PER UNIT SC SCH ×4 (07:30→21:00)
[2018-09-29 07:34] LABS: ANISOCYTOSIS 1+; ATYPICAL LYMPH 1 % (0-5); HYPOCHROMASIA 1+; LYMPHOCYTES 9 % (16-52); METAMYELOCYTES 4 % (0-0); MONOCYTES 11 % (0-8); MYELOCYTES 4 % (0-0); NEUTROPHILS 70 % (35-75); OVALOCYTES 1+; PLATELET ESTIMATE NORMAL (NORMAL)
[2018-09-29] MEDS: DRONEDARONE 400 MG TAB (MULTAQ) PO SCH ×2 (08:45→17:59)
[2018-09-29] MEDS: ENOXAPARIN 40 MG/0.4 ML SYRINGE (J1650) SC SCH (08:45)
[2018-09-29] MEDS: OMEPRAZOLE 20 MG CAP PO SCH (08:45)
[2018-09-29] MEDS: predniSONE 20 MG TAB PO SCH (08:46)
[2018-09-29] MEDS: POTASSIUM CHLORIDE 10 MEQ SR TABLET PO SCH ×2 (08:46→21:49)
[2018-09-29] MEDS: FUROSEMIDE 40 MG/4 ML VIAL (J1940) IV SCH (08:49)
--- NOTE | 2018-09-29 09:40 | IPNPDOC ---
Subjective Date Seen The patient was seen on 09/29/18. Subjective Chief Complaint/HPI Dyspnea Events since last encounter Continues to improve. Weaning off of oxygen. Cleared by PT. Pulmonary: Reports: Dyspnea (improving); Denies: Cough Cardiovascular: Denies: Chest Pain, Palpitations, Orthopnea, Paroxysmal Noc. Dyspnea, Lt Headedness Gastrointestinal: Denies: Nausea, Vomiting, Abdominal Pain, Diarrhea, Constipation Objective Physical Examination General Exam: Positive: Alert, No Acute Distress ENT Exam: Positive: Mucous membr. moist/pink Chest Exam: Positive: Clear to auscultation (left lung), Diminished (R>L); Negative: Rhonchi Heart Exam: Positive: Rate Normal, Normal S1, Normal S2 Abdomen Exam: Positive: Normal bowel sounds, Soft; Negative: Tenderness Extremity Exam: Negative: Edema Neuro Exam: Positive: Normal Speech Psych Exam: Positive: Mood NL Assessment /Plan Problems (1) Multifocal pneumonia Status: Acute Problem Text: 09/29/18: received 6 days of Cefepime and 5 days of vancomycin IV. Transitioned to po Cefdinir today. Needs repeat CT chest in 2 weeks and appt with Dr. Cruz in 2 weeks. Signs of pneumonitis: Prednisone 40 mg po daily x 7 days then 30 mg po daily until seen by Dr. Cruz. 09/28/18: see Pulm note. Improved symptoms with addition of Prednisone. weaning off of oxygen. 09/27/18: Pulmonology consult with new infiltrates, effusion. Patient agreeable. D5 cefepime 2 TID/vanco 15-20 trough (previous 2D ceftriaxone 2 gm) was to receive 6th of 6 cycle R-CHOP on 09/21/18, but held 2 dyspnea c hypoxia/chills-worsening x 4D prior remains Jessika@ ~93% on 3L NC (baseline does not require 02)//baseline SBP 90-100 09/25 clinically improving, repeat CRP/ESR, CXR 09/24 AF since admission, WBC 5.3 (09/21 5.3 but 5% meta/myelo); changed regimen to cover HAP in immunocompromised, check urinary pn, fungal Ab; unable to produce sputum for CX, CRP/ESR 09/23/18 CTA chest: 1. Significant bilateral infiltrates compatible with multifocal pneumonia and accompanying bilateral moderate to large pleural effusions. 2. No pulmonary embolus. 09/21/18 BCX2 NG (2) Acute on chronic diastolic (congestive) heart failure Status: Acute Problem Text: 09/29/18: minimal Lasix IV due to diuresis and low pressures. transitioned to Lasix 20 mg po bid. 09/28/18: cardiology managing diuretics and plans on backing down on dosage. 09/26 - Still appears clinically decompensated, but BP soft. Lasix held last 3 doses. Still diuresed well I will cut back from 80 Q6H to 40 Q12H to see if BP will tolerate this better (Usual HD is 40 BID) .3, 0.9-extra 20 K given 09/24 3.7, cr 0.8, continue fur 80 IV q6H, K 10 BID 09/21/18 TTE: IMPRESSION: 1. Normal global left ventricular systolic function with mild concentric left ventricular hypertrophy. There is some features of left ventricular diastolic dysfunction manifested by abnormal relaxation. 2. Aortic valve sclerosis without stenosis or aortic regurgitation. 3. Mitral annulus calcification with trace mitral regurgitation. 4. Mild tricuspid regurgitation with probably moderate pulmonary hypertension. The right heart chambers appear to be mildly enlarged in limited views. 5. Small pericardial effusion was noted, no evidence of cardiac tamponade. 6. This was compared with most recent echocardiogram on 05/09/2018, at that time, the right heart chambers appeared to be normal. The patient then was tachycardiac. DD: CAREY SOW MD 09/22/18 0134 DT: CHANTELLE 09/22/18 0858 (3) Leukopenia Status: Resolved Problem Text: c NCNC anemia has required Neupogen c each R-CHOP cycle 09/26 WBC 3.7 from 5.3(84/09/05 meta/myelo), hgb 9.0 (4) Large B-cell lymphoma Status: Acute Problem Specific Plan: Monitor Clinically Problem Text: 10/06 R-CHOP held follows c WCTC (5) Paroxysmal atrial fibrillation Status: Chronic Response to Treatment: Stable Problem Text: 09/29/18: sporadic use of Metoprolol due to soft pressures. Prior dosing was 25 mg po bid. Changed to Metoprolol Succinate 25 mg po daily. Continue with Dronedarone. remains SR on HD met tar 25 q6H, drone 400 BID (6) Physical deconditioning Status: Chronic Problem Text: 09/29/18: Cleared by PT 09/25 + PT Plan/VTE VTE Prophylaxis Ordered?: Yes Plan Anticipated Discharge: Home (09/30/18) VS, I&O, 24H, Kirit Vital Signs/I&O Vital Signs Date Time Temp Pulse Resp B/P (MAP) Pulse Ox O2 Delivery O2 Flow Rate FiO2 09/29/18 08:49 82 96/58 09/29/18 06:00 96.6 18 90 09/28/18 16:20 2.0 I&O- Last 24 Hours up to 6 AM 09/29/18 06:00 Intake Total 1775 ml Output Total 3250 ml Balance -1475 ml Laboratory Data 24H LABS Laboratory Tests 2 09/28/18 12:11: Bedside Glucose (Misc Panel) 181H 09/28/18 15:45: Vancomycin Level Trough 19.1 09/29/18 06:16: Immature Granulocyte % (Auto) , White Blood Count 4.6, Red Blood Count 3.76L, Hemoglobin 10.0L, Hematocrit 33.2L, Mean Corpuscular Volume 88.3, Mean Corpu scular Hemoglobin 26.6L, Mean Corpuscular Hemoglobin Concent 30.1L, Red Cell Distribution Width 17.7H, Platelet Count 250, Lymphocytes # (Auto) , Nucleated Red Blood Cells % (auto) 0.0, Neutrophils 70, Band Neutrophils 1, Lymphocytes (Manual) 9L, Monocytes (Manual) 11H, Metamyelocytes 4H, Myelocytes 4H, Atypical Lymphocytes 1, Platelet Estimate NORMAL, Hypochromasia 1+, Anisocytosis 1+, Ovalocytes 1+, Anion Gap 6L, Glomerular Filtration Rate > 60.0, Blood Urea Nitrogen 17, Creatinine 0.63L, Sodium Level 137, Potassium Level 3.8, Chloride Level 101, Carbon Dioxide Level 30, Calcium Level 9.2, Aspartate Amino Transf (AST/SGOT) 19, Alanine Aminotransferase (ALT/SGPT) 10L, Alkaline Phosphatase 87, Total Bilirubin 0.4, Total Protein 5.6L, Albumin 2.8L, Magnesium Level 2.2, Albumin/Globulin Ratio 1.00 CBC/BMP Laboratory Tests 09/29/18 06:16 Red Blood Count 3.76 L, Mean Corpuscular Volume 88.3, Mean Corpuscular Hemoglobin 26.6 L, Mean Corpuscular Hemoglobin Concent 30.1 L, Red Cell Distribution Width 17.7 H, Lymphocytes # (Auto) , Calcium Level 9.2, Aspartate Amino Transf (AST/SGOT) 19, Alanine Aminotransferase (ALT/SGPT) 10 L, Alkaline Phosphatase 87, Total Bilirubin 0.4, Total Protein 5.6 L, Albumin 2.8 L Microbiology Microbiology 09/21/18 Blood Culture - Final, Complete NO GROWTH AFTER 5 DAYS 09/21/18 Blood Culture - Final, Complete NO GROWTH AFTER 5 DAYS Jael Martínez September 29, 2018 09:40 Justus Woods MD September 29, 2018 11:29
[2018-09-29] MEDS ORDERED: METOPROLOL SUCC *XL* 12.5MG PER 1/2 TAB (TopROL *XL*) PO ONE (12:00)
[2018-09-29] MEDS: METOPROLOL SUCC *XL* 25MG TAB (TopROL *XL*) PO SCH (13:09)
[2018-09-29 14:00] VITALS: BP 111/66
[2018-09-29] MEDS: FUROSEMIDE 20 MG TAB PO SCH (17:59)
[2018-09-29] MEDS: CEFDINIR 300 MG CAP (OMNICEF) PO SCH (21:48)
[2018-09-29 22:00] VITALS: BP 111/70
[2018-09-30] VITALS: BP 110/70
[2018-09-30 06:00] VITALS: BP 116/64
[2018-09-30 06:26] LABS: HEMATOCRIT 29.8 % (42.0-52.0); MEAN CORPUSCULAR HEMOGLOBIN 26.2 pg (27.0-33.0); MEAN CORPUSCULAR HGB CONC 30.2 g/dl (32.0-36.5); MEAN CORPUSCULAR VOLUME 86.9 fl (80.0-96.0); PLATELET COUNT, AUTOMATED 205 10^3/uL (150-450); RED BLOOD COUNT 3.43 10^6/uL (4.30-6.10); WHITE BLOOD COUNT 3.8 10^3/uL (4.0-10.0)
[2018-09-30] MEDS: VANCOMYCIN HCL 750 MG, VIAL MATE ADAPTER 1 EACH in D5W 250 ML IV SCH (06:32)
[2018-09-30] MEDS: SLF 3 ML SYR IV SCH ×2 (06:32→14:00)
[2018-09-30 06:50] LABS: ALBUMIN 2.5 GM/DL (3.2-5.2); ALT/SGPT 16 U/L (12-78); BILIRUBIN,TOTAL 0.3 MG/DL (0.2-1.0); BLOOD UREA NITROGEN 17 MG/DL (7-18); CALCIUM LEVEL 8.8 MG/DL (8.8-10.2); CARBON DIOXIDE LEVEL 30 MEQ/L (21-32); CHLORIDE LEVEL 103 MEQ/L (98-107); CREATININE FOR GFR 0.64 MG/DL (0.70-1.30); GLOMERULAR FILTRATION RATE > 60.0 (>49); GLUCOSE, FASTING 74 MG/DL (70-100); POTASSIUM SERUM 4.2 MEQ/L (3.5-5.1); SODIUM LEVEL 138 MEQ/L (136-145)
[2018-09-30] MEDS: HumaLOG INSULIN (NovoLOG) PER UNIT SC SCH ×2 (07:30→12:00)
[2018-09-30 09:06] VITALS: BP 116/64
[2018-09-30] MEDS: DRONEDARONE 400 MG TAB (MULTAQ) PO SCH (09:06)
[2018-09-30] MEDS: CEFDINIR 300 MG CAP (OMNICEF) PO SCH (09:06)
[2018-09-30] MEDS: predniSONE 20 MG TAB PO SCH (09:06)
[2018-09-30] MEDS: METOPROLOL SUCC *XL* 25MG TAB (TopROL *XL*) PO SCH (09:06)
[2018-09-30] MEDS: OMEPRAZOLE 20 MG CAP PO SCH (09:07)
[2018-09-30] MEDS: FUROSEMIDE 20 MG TAB PO SCH (09:07)
[2018-09-30] MEDS: ENOXAPARIN 40 MG/0.4 ML SYRINGE (J1650) SC SCH (09:07)
[2018-09-30] MEDS: POTASSIUM CHLORIDE 10 MEQ SR TABLET PO SCH (09:07)
[2018-09-30] MEDS ORDERED: METO1TAB32 PO ×2 (11:09→11:18)
[2018-09-30] MEDS ORDERED: PRED20TA PO (11:09)
[2018-09-30] MEDS ORDERED: VENTAER INH (11:09)
[2018-09-30] MEDS ORDERED: OMEP-218 PO (11:09)
[2018-09-30] MEDS ORDERED: CEFD300CAP PO (11:09)
[2018-10-01 00:14] LABS: ASPERGILLUS FLAVUS ABY Negative (Neg:<1:1); ASPERGILLUS FUMIGATUS ABY Negative (Neg:<1:1); ASPERGILLUS GALACTOMANNAN AG 0.13 Index (0.00-0.49); ASPERGILLUS NIGER ABY Negative (Neg:<1:1); BLASTOMYCES ABY Negative (Neg:<1:1); BODY FLUID CULTURE Not Indicated (.); HISTOPLASMA ABY Negative (Neg:<1:1); ORGANISM ID Not indicated. (.); SPECIMEN SOURCE Urine (.); URINE STREP PNEUMONIAE ANTIGEN Negative (Negative)
--- NOTE | 2018-10-01 08:44 | DSES ---
DATE OF ADMISSION: 09/21/2018 DATE OF DISCHARGE: 09/30/2018 BRIEF HISTORY AND PHYSICAL: The patient is a 63-year-old patient of Dr. Woods who is followed by Dr. Waldron, his oncologist, and had been seeing her in the office that day but was sent to the emergency room for heart failure. He had been having dyspnea on exertion, progressively worsening over the last week to the point where he could barely walk across the room without stopping to catch his breath and had increased lower extremity edema. 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 He has a cardiac history of paroxysmal atrial fibrillation, converted to sinus rhythm on a combination of Multaq and metoprolol. He had an implanted loop recorder on 08/29/2018 at [facility], and he is chronically borderline hypotensive and has preserved ejection fraction per echo. PERTINENT LABS ON ADMISSION: Sodium 138, potassium 3.9, BUN 21, creatinine 0.55, glucose 105. Pro-BNP 1553, white count 5.4, hemoglobin 8.9, platelets 248,000. Chest x-ray showed bilateral infiltrates, bilateral effusions. HOSPITAL COURSE: 1. The patient was admitted for congestive heart failure with preserved ejection fraction. He was placed on Lasix. His diuretics have been adjusted in the hospital. He had pretty good diuresis initially and became better compensated. He has a tendency toward hypotension and so the diuretic doses were cut back. He was on Lasix 20 mg twice a day. However, he still has a fair amount of edema and probably will have some fluid retention due to his steroids. And so at this point, we will send him back home on his usual 40 mg twice a day, and recognizing that he does tend to run a low blood pressure but has tolerated that and that it is pretty well baseline for him. 2. Multifocal pneumonia. Pulmonary saw him in consultation. His antibiotics were adjusted, cefepime and IV vancomycin, transitioned to cefdinir. He will need a followup with Dr. Cruz in [address] CT at that time. He should remain on prednisone 40 mg daily for 7 days and then 30 mg daily until he sees Dr. Cruz. He has been able to wean off of his oxygen. 3. Leukopenia. This has improved. 4. Large B-cell lymphoma. As above, treatment per oncology. 5. Paroxysmal atrial fibrillation. His rate has been stable. He has been getting metoprolol 25 mg daily, sometimes this was not administered due to hold parameters for blood pressure. I think a half a tablet daily might be a more appropriate dose upon discharge, especially if we are going to go up on his Lasix; that way, maybe we will get the better tolerance of those medications. He is stable for discharge. DISCHARGE DIAGNOSES: 1. Multifocal pneumonia. 2. Decompensated congestive heart failure with preserved ejection fraction. 3. Leukopenia. 4. Large B-cell lymphoma. 5. Paroxysmal atrial fibrillation. 6. Physical deconditioning.
== END 2018-09-30 14:35 | disposition home or self-care (01) | DRG 194 ==
LOC: M ED 08:40 → M ED INP 10:31 → M PCU 13:55 → M MSPAV 09-28 16:20
PROVIDERS: ADMIT Family Medicine; ATTEND Family Medicine
DX: I50.33 Acute on chronic diastolic (congestive) heart failure (principal); J18.9 Pneumonia, unspecified organism; C85.80 Other specified types of non-Hodgkin lymphoma, unspecified site; I48.0 Paroxysmal atrial fibrillation; E11.9 Type 2 diabetes mellitus without complications; D64.9 Anemia, unspecified; I34.0 Nonrheumatic mitral (valve) insufficiency; Z79.899 Other long term (current) drug therapy; Z87.891 Personal history of nicotine dependence; E87.6 Hypokalemia

== ENCOUNTER 2018-10-13 23:24 | Inpatient (IN) | payer OTHER ==
[~2018-10-13] VITALS: Ht 157.5 cm; Wt 67.1 kg
[~2018-10-13 23:24] MED LIST changes: +ALEV220T22 PO; +CEFD300CAP PO; +LOPR1TAB6 PO; +METO1TAB32 PO; +OMEP-218 PO; +PRED20TA PO
[2018-10-14 00:09] LABS: HEMATOCRIT 37.3 % (42.0-52.0); HEMOGLOBIN 11.7 g/dl (13.5-17.5); MEAN CORPUSCULAR HEMOGLOBIN 27.7 pg (27.0-33.0); MEAN CORPUSCULAR HGB CONC 31.4 g/dl (32.0-36.5); MEAN CORPUSCULAR VOLUME 88.4 fl (80.0-96.0); PLATELET COUNT, AUTOMATED 125 10^3/uL (150-450); RED BLOOD COUNT 4.22 10^6/uL (4.30-6.10)
[2018-10-14] MEDS ORDERED: FUROSEMIDE 100 MG/10 ML VIAL (J1940) IV ONE (00:15)
[2018-10-14] MEDS ORDERED: IPRATROPIUM 0.5MG/ALBUTEROL 2.5MG INH SOL UD 3ML (DUONEB)(J7620) NEB ONE (00:15)
[2018-10-14 00:27] LABS: ABG BASE EXCESS 0.3 (-2.0-2.0); ABG HCO3 24.8 MEQ/L (22.0-26.0); ABG PARTIAL PRESSURE CO2 39.7 mmHg (35.0-45.0); ABG PARTIAL PRESSURE O2 155.9 mmHg (75.0-100.0); ABG STANDARD HCO3 24.8 MEQ/L (22.0-26.0); ABG pH (ARTERIAL) 7.414 UNITS (7.350-7.450)
[2018-10-14 00:31] LABS: BLOOD UREA NITROGEN 31 MG/DL (7-18); CALCIUM LEVEL 7.9 MG/DL (8.8-10.2); CARBON DIOXIDE LEVEL 25 MEQ/L (21-32); CHLORIDE LEVEL 106 MEQ/L (98-107); CREATININE FOR GFR 0.85 MG/DL (0.70-1.30); GLOMERULAR FILTRATION RATE > 60.0 (>49); GLUCOSE, FASTING 92 MG/DL (70-100); POTASSIUM SERUM 4.5 MEQ/L (3.5-5.1); SODIUM LEVEL 139 MEQ/L (136-145)
[2018-10-14 00:38] LABS: WHITE BLOOD COUNT 1.2 10^3/uL (4.0-10.0)
[2018-10-14 00:46] LABS: BASOPHILS 1 % (0-4); EOSINOPHILS 1 % (0-5); LYMPHOCYTES 15 % (16-52); METAMYELOCYTES 2 % (0-0); MONOCYTES 6 % (0-8); NEUTROPHILS 75 % (35-75)
[2018-10-14 00:47] LABS: PLATELET ESTIMATE DECREASED (NORMAL); POIKILOCYTOSIS 1+
[2018-10-14] MEDS ORDERED: METO1TAB32 PO (00:56)
[2018-10-14] MEDS ORDERED: PRED20TA PO (00:56)
[2018-10-14] MEDS ORDERED: OMEP20CA4 PO (00:56)
[2018-10-14] MEDS ORDERED: AZITHROMYCIN INJ 500 MG, VIAL MATE ADAPTER 1 EACH in D5W 250 ML IV ONE (01:00)
[2018-10-14] MEDS ORDERED: cefTRIAXone SOD 1 GM in D5W MINI-BAG PLUS 50 ML IV ONE (01:00)
[2018-10-14] MEDS ORDERED: ACETAMINOPHEN TAB 650MG DOSE (2X325MG) PO PRN (01:15)
[2018-10-14] MEDS ORDERED: VANCOMYCIN HCL 1,000 MG, VIAL MATE ADAPTER 1 EACH in D5W 250 ML IV ONE (01:45)
--- NOTE | 2018-10-14 02:41 | REPVR ---
EXAM: US Duplex Bilateral Lower Extremity Veins EXAM DATE/TIME: 10/14/2018 1:57 AM CLINICAL HISTORY: 63 years old, male; Pain; Leg, upper; Bilateral; Additional info: Legs edema to rule out dvt TECHNIQUE: Imaging protocol: Real-time duplex ultrasound of the Bilateral Lower Extremities with 2-D waggoner scale, color Doppler flow and spectral waveform analysis. Complete exam focused on the bilateral lower extremity veins. COMPARISON: No relevant prior studies available. FINDINGS: Right deep veins: Unremarkable. The common femoral, femoral, proximal profunda femoral and popliteal veins are patent without thrombus. Normal Doppler waveforms. Normal compressibility and/or augmentation response. Right superficial veins: Saphenofemoral junction is patent without thrombus. Left deep veins: Unremarkable. The common femoral, femoral, proximal profunda femoral and popliteal veins are patent without thrombus. Normal Doppler waveforms. Normal compressibility and/or augmentation response. Left superficial veins: Saphenofemoral junction is patent without thrombus. Soft tissues: Unremarkable. IMPRESSION: Negative bilateral lower extremity venous duplex exam without evidence of deep venous thrombosis. Electronically signed by: Miguel Diaz On 10/14/2018 02:41:15 AM
[2018-10-14] MEDS: PIPERACILLIN/TAZOBACTAM SOD 3.375 GM in D5W MINI-BAG PLUS 50 ML IV SCH ×4 (05:27→22:13)
--- NOTE | 2018-10-14 06:13 | PHACANCOPD ---
PHARMACY VANCOMYCIN DOSING Pt Demographics Demographics Patient Age:63 , Weight:77.720 , Gender: male Adjusted Body Weight Date: 10/14/18, Adjusted Body Weight: [63.9] Kg Vancomycin Vancomycin indication: PNEUMONIA Vancomycin Target Ranges: 15-20 mcg/ml Vancomycin Load Y/N: No Load Dose Date Time Vancomycin Load Dose: Date: Time: Vancomycin Dose Date: 10/14/18. Current Vancomycin Dose: [1GM Q12H] Intermittent Dosing?: No Labs Labs Laboratory Tests 10/13/18 23:57 Red Blood Count 4.22 L, Mean Corpuscular Volume 88.4, Mean Corpuscular Hemoglobin 27.7, Mean Corpuscular Hemoglobin Concent 31.4 L, Red Cell Distribution Width 18.1 H, Neutrophils # (Auto) , Lymphocytes # (Auto) , Calcium Level 7.9 L Micro Microbiology 10/13/18 Blood Culture, Received Pending Creatinine Clearance Date:10/14/18. Creatinine Clearance: [81.4].CALCULATED Assessment and Plan Maintaining Current Dose?: Yes Reason for dose change: No Dose Change Pharmacist Note Pharmacist Note Date: 10/14/18. Pharmacist note:[id number] ADMITTED W/ POSSIBLE PNEUMONIA,SCR=0.85,CRCL=81.4,TX with Pip/Tazo 3.375 gm q6h and pharmacy dosed Vancomycin.Vanco 1 gram administered in ED@0300, then will continue w/ Vanco 1 gram IV Q12 hours to begin today@0900. First trough is scheduled for 10/15@0800- will continue to follow [facility] Oct 14, 2018 06:13
--- NOTE | 2018-10-14 07:07 | HPE ---
DATE OF ADMISSION: 10/14/2018 PRIMARY CARE PROVIDER: Dr. Justus Woods CHIEF COMPLAINT: Worsening shortness of breath, fever and chills. HISTORY OF PRESENT ILLNESS: The patient is a 63-year-old white male with several chronic medical conditions listed below including lymphoma who presented to the hospital for evaluation of the above complaints. History is provided by himself as well as by review of the chart. Per medical record, the patient has lymphoma. For that, he is receiving chemotherapy. Back to 09/21/2018, he was admitted to the hospital here for congestive heart failure (CHF) exacerbation as well as pneumonia. He was treated with IV Lasix and IV antibiotics and he was getting better and he was sent home on 10/01/2018. Per the patient, after discharge from the hospital he was doing okay, but he still had shortness of breath which was getting worse gradually again. Particularly when he would try and move around, he had more shortness of breath, but denies coughing. No phlegm. No chest pain. Today, he stated he had some fever and chills and decided to call the ambulance and was brought to the hospital for further evaluation. In the emergency room (ER), he had a temperature of 100.5. He was mildly tachycardic, but he was very severely hypoxic and needed 15 liters of oxygen supplement. He was given IV Lasix as well as IV antibiotics. The medicine service was called for admission. REVIEW OF SYSTEMS: Some fever and chills. No headache. No blurred vision. Positive for shortness of breath. Positive for coughing, no phlegm. No hemoptysis. No chest pain. No nausea. No vomiting. No abdominal pain. No diarrhea. No tingling, numbness, weakness in the lower extremities, but general weakness. All other systems reviewed, but negative. PAST MEDICAL HISTORY: 1. Paroxysmal atrial fibrillation. 2. Diastolic congestive heart failure. 3. Lymphoma. 4. History of type 2 diabetes, but resolved after losing weight. PAST SURGICAL HISTORY: None. ALLERGIES: No known drug allergies. SOCIAL HISTORY: Denies tobacco. Denies alcohol abuse. Denies illicit drug abuse. He is a full code. FAMILY HISTORY: No family history of coronary disease, cancer or high blood pressure. MEDICATIONS: Reviewed. PHYSICAL EXAMINATION: Vitals: Temperature 100.5. Heart rate 97. Respiratory rate 24. Blood pressure 124/82. Oxygen saturation 95% on 15 liters oxygen supplementation. General: He is awake and alert. He is oriented times three. He is in acute respiratory distress with labored breathing. HEENT: Atraumatic. Pupils equal, round, react to light. No jaundice. Extraocular muscles intact. Ears, nose, throat and mouth normal. Neck: No jugular venous distention (JVD). No bruits. Lungs: Bilateral crackles, left more than right. No wheezing. Heart: S1, S2. Regular. No murmur. Abdomen: Soft. Bowel sounds positive. Nontender. Lower Extremities: He has +2 to 3 edema in bilateral lower extremities. Neurologic: Nonfocal. Skin: No rash. Psychologic: No acute psychosis. DIAGNOSTIC AND LAB STUDIES: CBC and differential with WBC 5.5, hemoglobin/hematocrit (H/H) 11.7/37.3, platelets 125. Sodium 139, potassium 4.5, chloride 106, bicarbonate 25, BUN 31, creatinine 0.8, glucose 92. Lactic acid 3.3. Chest x-ray reviewed. IMPRESSION: 1. Acute respiratory distress. 2. Possible hospital acquired pneumonia and sepsis. 3. Acute on chronic diastolic congestive heart failure exacerbation. 4. History of paroxysmal atrial fibrillation, currently NSR. 5. History of lymphoma. PLAN: The patient will be admitted to the progressive care unit (PCU). I will treat him with IV vancomycin and Zosyn for possible hospital acquired pneumonia. He is immunocompromised with neutropenia. Will follow cultures. Also will give him IV Lasix for congestive heart failure exacerbation. Will schedule bilateral lower extremity Doppler to rule out deep vein thrombosis (DVT). Lovenox will be given for deep vein thrombosis prophylaxis. MTDD
--- NOTE | 2018-10-14 08:27 | REP ---
PORTABLE CHEST X-RAY: Single view. HISTORY: Dyspnea. COMPARISON STUDY: September 25, 2018. FINDINGS: A loop recorder and EKG monitoring electrodes are seen. A right internal jugular Ybhgkb-K-Zeip catheter is noted in place unchanged. There are extensive essentially diffuse interstitial infiltrates noted today. The heart is not felt to be enlarged. There is slight blunting of the left lateral pleural angle although this appears to be chronic. IMPRESSION: Diffuse interstitial infiltrate/edema pattern. Normal heart size. Electronically Signed by Gamaliel Yan MD 10/14/2018 03:00 P
[2018-10-14] MEDS: DRONEDARONE 400 MG TAB (MULTAQ) PO SCH ×2 (09:00→21:42)
[2018-10-14] MEDS: VANCOMYCIN HCL 1,000 MG, VIAL MATE ADAPTER 1 EACH in D5W 250 ML IV SCH ×2 (09:20→20:57)
[2018-10-14 09:37] VITALS: BP 105/71
[2018-10-14] MEDS: POTASSIUM CHLORIDE 10 MEQ SR TABLET PO SCH ×2 (10:38→21:42)
[2018-10-14] MEDS: predniSONE 20 MG TAB PO SCH (10:38)
[2018-10-14] MEDS: FUROSEMIDE 40 MG/4 ML VIAL (J1940) IV SCH ×2 (10:38→17:41)
[2018-10-14] MEDS: ENOXAPARIN 40 MG/0.4 ML SYRINGE (J1650) SC SCH (10:38)
[2018-10-14] MEDS: METOPROLOL SUCC *XL* 25MG TAB (TopROL *XL*) PO SCH (10:39)
[2018-10-14] MEDS: OMEPRAZOLE 20 MG CAP PO SCH (10:39)
--- NOTE | 2018-10-14 11:45 | IPNPDOC ---
Subjective Date Seen The patient was seen on 10/14/18. Subjective Chief Complaint/HPI Pt this morning states that aside from feeling more SOB than usual he is doing alright. States SOB has been persistent for the last few days. He has been around his Bro in law who has had URI symptoms. General: Reports: Fatigue Constitutional: Denies: Chills, Fever (T Max 100.5) Pulmonary: Reports: Dyspnea; Denies: Cough Cardiovascular: Denies: Chest Pain, Palpitations Gastrointestinal: Denies: Nausea, Vomiting, Abdominal Pain, Diarrhea Musculoskeletal: Denies: Neck Pain Neurological: Reports: Weakness Psych: Reports: Mood Normal Objective Physical Examination General Exam: Positive: Alert, Cooperative, No Acute Distress ENT Exam: Positive: Mucous membr. moist/pink Chest Exam: Negative: Clear to auscultation, Rales, Rhonchi, Wheezing, Diminished (diffusely diminished) Heart Exam: Positive: Rate Normal, Regular Rhythm, Normal S1, Normal S2; Negative: Tachycardic, Irregular Rhythm Abdomen Exam: Positive: Normal bowel sounds, Soft; Negative: Tenderness Extremity Exam: Positive: Edema (2 mm pitting BLE) Neuro Exam: Positive: Normal Speech Psych Exam: Positive: Mood NL Assessment /Plan Problems (1) Acute respiratory failure with hypoxemia Status: Acute Response to Treatment: Stable Discussed With: Nurse, Patient Problem Specific Plan: Monitor Clinically, Repeat Labs Problem Text: Concern for hosp acquired PN given recent hospitalization has been started on Vanco/Zosyn. Will cont, repeat CXR in AM. Cont with O2. (2) Acute on chronic diastolic (congestive) heart failure Status: Acute Response to Treatment: Stable Problem Specific Plan: Monitor Clinically Problem Text: Last ECHO 09/18 with nl EF< Gr 1 diastolic dysfunction. Cont with Lasix IV, change diet to low sodium. Monitor I & Os. (3) Large B-cell lymphoma Status: Acute Problem Specific Plan: Monitor Clinically Problem Text: Follows with [facility] Onc as outpt, scheduled for final chemo 10/21. Plan/VTE VTE Prophylaxis Ordered?: No VS, I&O, 24H, Fishbone Vital Signs/I&O Vital Signs Date Time Temp Pulse Resp B/P (MAP) Pulse Ox O2 Delivery O2 Flow Rate FiO2 10/14/18 10:39 82 105/71 10/14/18 09:45 15.0 50 10/14/18 09:37 99.0 26 97 6/14/19 08:54 Venturi Mask I&O- Last 24 Hours up to 6 AM 10/14/18 06:00 Intake Total 625 ml Output Total 1100 ml Balance -475 ml Laboratory Data 24H LABS Laboratory Tests 2 10/13/18 23:57: Immature Granulocyte % (Auto) , White Blood Count 1.2L, Red Blood Count 4.22L, Hemoglobin 11.7L, Hematocrit 37.3L, Mean Corpuscular Volume 88.4, Mean Corpuscular Hemoglobin 27.7, Mean Corpuscular Hemoglobin Concent 31.4L, Red Cell Distribution Width 18.1H, Platelet Count 125L, Neutrophils # (Auto) , Lymphocytes # (Auto) , Nucleated Red Blood Cells % (auto) 0.0, Neutrophils 75, Lymphocytes (Manual) 15L, Monocytes (Manual) 6, Eosinophils (Manual) 1, Basophils (Manual) 1, Metamyelocytes 2H, Platelet Estimate DECREASED, Poikilocytosis 1+, Anion Gap 8, Glomerular Filtration Rate > 60.0, Lactic Acid Level 3.3*H, Blood Urea Nitrogen 31H, Creatinine 0.85, Sodium Level 139, Potassium Level 4.5, Chloride Level 106, Carbon Dioxide Level 25, Calcium Level 7.9L, IY-Icg-T-Type Natriuretic Peptide 1378H 10/14/18 00:16: Blood Gas Bicarbonate Standard 24.8, Arterial Blood pH 7.414, Arterial Blood Partial Pressure CO2 39.7, Arterial Blood Partial Pressure O2 155.9H, Arterial Blood Total CO2 26.0, Arterial Blood HCO3 24.8, Arterial Blood Base Excess 0.3, Arterial Blood Oxygen Saturation 99.0 10/14/18 05:43: Lactic Acid Followup at 4 Hours 1.7 CBC/BMP Laboratory Tests 10/13/18 23:57 Red Blood Count 4.22 L, Mean Corpuscular Volume 88.4, Mean Corpuscular Hemoglobin 27.7, Mean Corpuscular Hemoglobin Concent 31.4 L, Red Cell Distribution Width 18.1 H, Neutrophils # (Auto) , Lymphocytes # (Auto) , Calcium Level 7.9 L Microbiology Microbiology 10/13/18 Blood Culture, Received Pending PILY DAVENPORT PA-C Oct 14, 2018 11:45
[2018-10-14 12:00] VITALS: BP 105/70
--- NOTE | 2018-10-14 13:22 | ECGEPIP ---
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
[2018-10-14 16:00] VITALS: BP 109/71
[2018-10-14] MEDS ORDERED: PEGFILGRASTIM 6 MG/0.6ML SYR (NEULASTA) (J2505 PER 6MG) SC ONE (18:30)
[2018-10-14 20:00] VITALS: BP 107/70
[2018-10-15] VITALS (7 sets, daily range): BP systolic 91–103; BP diastolic 54–64
[2018-10-15 04:29] LABS: HEMATOCRIT 39.9 % (42.0-52.0); HEMOGLOBIN 12.4 g/dl (13.5-17.5); MEAN CORPUSCULAR HEMOGLOBIN 27.7 pg (27.0-33.0); MEAN CORPUSCULAR HGB CONC 31.1 g/dl (32.0-36.5); MEAN CORPUSCULAR VOLUME 89.1 fl (80.0-96.0); PLATELET COUNT, AUTOMATED 122 10^3/uL (150-450); RED BLOOD COUNT 4.48 10^6/uL (4.30-6.10); WHITE BLOOD COUNT 2.3 10^3/uL (4.0-10.0)
[2018-10-15 04:54] LABS: BLOOD UREA NITROGEN 28 MG/DL (7-18); CALCIUM LEVEL 8.2 MG/DL (8.8-10.2); CARBON DIOXIDE LEVEL 35 MEQ/L (21-32); CHLORIDE LEVEL 94 MEQ/L (98-107); CREATININE FOR GFR 0.93 MG/DL (0.70-1.30); GLOMERULAR FILTRATION RATE > 60.0 (>49); GLUCOSE, FASTING 79 MG/DL (70-100); POTASSIUM SERUM 3.2 MEQ/L (3.5-5.1); SODIUM LEVEL 137 MEQ/L (136-145)
[2018-10-15] MEDS: PIPERACILLIN/TAZOBACTAM SOD 3.375 GM in D5W MINI-BAG PLUS 50 ML IV SCH ×4 (05:42→23:48)
[2018-10-15] MEDS: FUROSEMIDE 40 MG TAB PO SCH ×2 (09:00→16:34)
[2018-10-15] MEDS: POTASSIUM CHLORIDE 10 MEQ SR TABLET PO SCH ×2 (09:00→20:47)
[2018-10-15 09:06] LABS: LDH LACTATE DEHYDROGENASE 474 U/L (87-241)
--- NOTE | 2018-10-15 09:06 | IPNPDOC ---
Subjective Date Seen The patient was seen on 10/15/18. Subjective Chief Complaint/HPI feels a little better no mouth sores. no chills, no gi symptoms, no urinary symptoms. nurse observes dyspnea and desats with minimal activity still Objective Physical Examination General Exam: Positive: Alert, Cooperative, No Acute Distress ENT Exam: Positive: Mucous membr. moist/pink Chest Exam: Positive: Other; Negative: Clear to auscultation, Rales, Rhonchi, Wheezing, Diminished (diffusely diminished) Heart Exam: Positive: Rate Normal, Regular Rhythm, Normal S1, Normal S2; Negative: Tachycardic, Irregular Rhythm Abdomen Exam: Positive: Normal bowel sounds, Soft; Negative: Tenderness Extremity Exam: Positive: Edema (2 mm pitting BLE) Neuro Exam: Positive: Normal Speech Psych Exam: Positive: Mood NL Assessment /Plan Problems (1) Acute respiratory failure with hypoxemia Status: Acute Response to Treatment: Stable, Improving Discussed With: Nurse, Patient Problem Specific Plan: Monitor Clinically, Repeat Labs Problem Text: With his previous hospital stay he tested positive of betaglucan, also he has hx of lymphoma which increases risk for pneumocystis. therefore will start coverage for pneumocystis. if improving then can eliminate the vanco/zosyn. Concern for hosp acquired PN given recent hospitalization has been started on Vanco/Zosyn. Will cont, repeat CXR in AM. Cont with O2. (2) Acute on chronic diastolic (congestive) heart failure Status: Acute Response to Treatment: Stable, Improving Problem Specific Plan: Monitor Clinically Problem Text: CXR in am, continue lasix for now. Last ECHO 09/18 with nl EF< Gr 1 diastolic dysfunction. Cont with Lasix IV, change diet to low sodium. Monitor I & Os. (3) Large B-cell lymphoma Status: Acute Problem Specific Plan: Monitor Clinically Problem Text: Follows with [facility] Onc as outpt, scheduled for final chemo 10/21. Plan/VTE VTE Prophylaxis Ordered?: No VS, I&O, 24H, Fishbone Vital Signs/I&O Vital Signs Date Time Temp Pulse Resp B/P (MAP) Pulse Ox O2 Delivery O2 Flow Rate FiO2 10/15/18 04:00 99.7 83 22 97/64 (75) 91 4.0 10/14/18 12:00 40 10/14/18 08:54 Venturi Mask I&O- Last 24 Hours up to 6 AM 10/15/18 06:00 Intake Total 1100 ml Output Total 3350 ml Balance -2250 ml Laboratory Data 24H LABS Laboratory Tests 2 10/14/18 17:52: 10/15/18 04:16: Nucleated Red Blood Cells % (auto) 0.0, Anion Gap 8, Glomerular Filtration Rate > 60.0, Lactic Acid Level 2.2*H, Blood Urea Nitrogen 28H, Creatinine 0.93, Sodium Level 137, Potassium Level 3.2#L, Chloride Level 94L, Carbon Dioxide Level 35H, Calcium Level 8.2L 10/15/18 07:45: Vancomycin Level Trough 6.5L 10/15/18 08:33: CBC/BMP Laboratory Tests 10/15/18 04:16 Red Blood Count 4.48, Mean Corpuscular Volume 89.1, Mean Corpuscular Hemoglobin 27.7, Mean Corpuscular Hemoglobin Concent 31.1 L, Red Cell Distribution Width 17.9 H, Calcium Level 8.2 L Microbiology Microbiology 10/13/18 Blood Culture - Preliminary, Resulted No growth after 24 hours . All specim... 10/14/18 Gram Stain - Final, Resulted 10/14/18 Sputum Culture, Resulted Pending Justus Woods MD Oct 15, 2018 09:06
[2018-10-15] MEDS: VANCOMYCIN HCL 1,000 MG, VIAL MATE ADAPTER 1 EACH in D5W 250 ML IV SCH ×2 (10:10→16:34)
[2018-10-15] MEDS: ENOXAPARIN 40 MG/0.4 ML SYRINGE (J1650) SC SCH (10:11)
[2018-10-15] MEDS: OMEPRAZOLE 20 MG CAP PO SCH (10:11)
[2018-10-15] MEDS: predniSONE 20 MG TAB PO SCH (10:12)
[2018-10-15] MEDS: DRONEDARONE 400 MG TAB (MULTAQ) PO SCH ×2 (10:12→20:47)
[2018-10-15] MEDS: METOPROLOL SUCC *XL* 25MG TAB (TopROL *XL*) PO SCH (10:12)
[2018-10-15] MEDS ORDERED: POTASSIUM CHLORIDE 10 MEQ SR TABLET PO ONE (10:15)
--- NOTE | 2018-10-15 10:42 | PHACANCOPD ---
PHARMACY VANCOMYCIN DOSING Pt Demographics Demographics Patient Age:63 , Weight:77.720 , Gender: male Adjusted Body Weight Date: 10/14/18, Adjusted Body Weight: [63.9] Kg Events Past 24 Hours Events Past 24 Hours: NO: Dialysis, Diuretic Therapy, Change in CrCl, Fever, Elevation in WBC, Pending Diagnostics, Pending Procedures, Other Vancomycin Vancomycin indication: PNEUMONIA Vancomycin Target Ranges: 15-20 mcg/ml Vancomycin Load Y/N: No Load Dose Date Time Vancomycin Load Dose: Date: Time: Vancomycin Dose Date: 10/15/18. Current Vancomycin Dose: [1g IV Q8H @09] Date: 10/14/18. Current Vancomycin Dose: [1GM Q12H] Intermittent Dosing?: No Labs Labs Item Value Date Time White Blood Count 1.2 10^3/uL L 10/13/182356 White Blood Count 2.3 10^3/uL L 10/15/18 0416 Vancomycin Level Trough 6.5 UG/ML L 10/15/18 0745 Creatinine 0.93 MG/DL 10/15/18 0416 Creatinine 0.85 MG/DL 10/13/18 2357 Micro Microbiology 10/13/18 Blood Culture - Preliminary, Resulted 10/14/18 Gram Stain - Final, Resulted 10/14/18 Sputum Culture, Resulted Pending Creatinine Clearance Date:10/14/18. Creatinine Clearance: [81.4].CALCULATED Assessment and Plan Maintaining Current Dose?: No Reason for dose change: Trough too low Pharmacist Note Pharmacist Note Date: 10/15/18. Pharmacist note: vanco trough drawn this morning ~75 min before the dose came back low at 6.5 mcg/ml. I have increased his vancomycin dosing to 1g IV q8h. He is currently on day 3 of vanco/Zosyn, Bactrim was added today for suspicion of PCP. Renal function has been stable. Blood culture is preliminary positive for G+ cocci cl, sputum is pending. We will continue to monitor and make adjustments as necessary. Jesus Gilmore.D. Oct 15, 2018 10:42
[2018-10-15] MEDS ORDERED: SULFAMETHOXAZOLE IV SCH (12:00)
[2018-10-15] MEDS ORDERED: D5W IV SCH (12:00)
[2018-10-15] MEDS ORDERED: TRIMETHOPRIM IV SCH (12:00)
[2018-10-15] MEDS: D5W IV SCH (18:00)
[2018-10-15] MEDS: TRIMETHOPRIM IV SCH (18:00)
[2018-10-15] MEDS: SULFAMETHOXAZOLE IV SCH (18:00)
[2018-10-16] VITALS: BP 99/56
[2018-10-16] MEDS: SULFAMETHOXAZOLE IV SCH ×4 (01:00→17:52)
[2018-10-16] MEDS: TRIMETHOPRIM IV SCH ×4 (01:00→17:52)
[2018-10-16] MEDS: D5W IV SCH ×4 (01:00→17:52)
[2018-10-16] MEDS: VANCOMYCIN HCL 1,000 MG, VIAL MATE ADAPTER 1 EACH in D5W 250 ML IV SCH ×3 (02:00→16:34)
[2018-10-16 04:00] VITALS: BP 98/59
[2018-10-16] MEDS: PIPERACILLIN/TAZOBACTAM SOD 3.375 GM in D5W MINI-BAG PLUS 50 ML IV SCH ×4 (04:48→22:53)
[2018-10-16 08:00] VITALS: BP 109/64
[2018-10-16] MEDS: predniSONE 20 MG TAB PO SCH (09:00)
[2018-10-16 10:10] LABS: BLOOD UREA NITROGEN 20 MG/DL (7-18); CALCIUM LEVEL 7.9 MG/DL (8.8-10.2); CARBON DIOXIDE LEVEL 32 MEQ/L (21-32); CHLORIDE LEVEL 92 MEQ/L (98-107); CREATININE FOR GFR 0.92 MG/DL (0.70-1.30); GLOMERULAR FILTRATION RATE > 60.0 (>49); GLUCOSE, FASTING 87 MG/DL (70-100); NT-PRO BNP 447 PG/ML (<125); POTASSIUM SERUM 3.2 MEQ/L (3.5-5.1); SODIUM LEVEL 132 MEQ/L (136-145)
--- NOTE | 2018-10-16 10:10 | IPNPDOC ---
Subjective Date Seen The patient was seen on 10/16/18. Subjective Chief Complaint/HPI still dyspneic with exertion. Constitutional: Denies: Chills, Night Sweats Skin: Denies: Rash Pulmonary: Reports: Dyspnea, Cough (scant productivirty); Denies: Pleuritic Chest Pain Cardiovascular: Denies: Chest Pain, Palpitations Gastrointestinal: Denies: Nausea, Abdominal Pain Genitourinary: Denies: Dysuria Hematologic: Denies: Bruising Neurological: Reports: Weakness (feels like his global strength is less in past month or so.) Psych: Reports: Mood Normal Objective Physical Examination General Exam: Positive: Alert, Cooperative, No Acute Distress ENT Exam: Positive: Mucous membr. moist/pink Chest Exam: Positive: Diminished (diffusely diminished with reduced air movement.), Other; Negative: Clear to auscultation, Rales, Rhonchi, Wheezing Heart Exam: Positive: Rate Normal, Regular Rhythm, Normal S1, Normal S2; Negative: Tachycardic, Irregular Rhythm Abdomen Exam: Positive: Normal bowel sounds, Soft; Negative: Tenderness Extremity Exam: Positive: Edema (2 mm pitting BLE) Neuro Exam: Positive: Normal Speech Psych Exam: Positive: Mood NL Assessment /Plan Problems (1) Acute respiratory failure with hypoxemia Status: Acute Response to Treatment: Stable, Improving Discussed With: Nurse, Patient Problem Specific Plan: Monitor Clinically, Repeat Labs Problem Text: 10/16: LDH elevated as well. Consistent with PCP infection. Sulfa/TMP started yesterday. Hypoxic with minimal exertion. Diuresis has diminished since change to po lasix. will repeat BNP, may need IV lasix again. If any continued worsening, will need Pulmonary consult (saw Dr. Cruz at last admit) With his previous hospital stay he tested positive of betaglucan, also he has hx of lymphoma which increases risk for pneumocystis. therefore will start coverage for pneumocystis. if improving then can eliminate the vanco/zosyn. Concern for hosp acquired PN given recent hospitalization has been started on Vanco/Zosyn. Will cont, repeat CXR in AM. Cont with O2. (2) Gram-positive cocci in clusters Status: Acute Response to Treatment: Stable Problem Text: He is on vanco and zosyn. once culture is confirmed can drop the zoxyn now that wbc has improved. Possible change to ceftaroline. If culture is not pos for coag pos Staph then may not need any Rx. note his procalcitonin is normal range (3) Acute on chronic diastolic (congestive) heart failure Status: Acute Response to Treatment: Stable, Improving Problem Specific Plan: Monitor Clinically Problem Text: 10/16: CXR looks a little wetter, BNP pending; may need increase laxix CXR in am, continue lasix for now. Last ECHO 09/18 with nl EF< Gr 1 diastolic dysfunction. Cont with Lasix IV, change diet to low sodium. Monitor I & Os. (4) Large B-cell lymphoma Status: Acute Problem Specific Plan: Monitor Clinically Problem Text: 10/16: may need to be rescheduled depending. Follows with [facility] Onc as outpt, scheduled for final chemo 10/21. Plan/VTE VTE Prophylaxis Ordered?: No VS, I&O, 24H, Fishbone Vital Signs/I&O Vital Signs Date Time Temp Pulse Resp B/P (MAP) Pulse Ox O2 Delivery O2 Flow Rate FiO2 10/16/18 08:00 5.0 10/16/18 04:00 96.9 65 17 98/59 (72) 94 10/14/18 12:00 40 10/14/18 08:54 Venturi Mask I&O- Last 24 Hours up to 6 AM 10/16/18 06:00 Intake Total 2429 ml Output Total 1050 ml Balance 1379 ml Laboratory Data 24H LABS Laboratory Tests 2 10/16/18 09:35: CBC/BMP Microbiology Microbiology 10/13/18 Blood Culture - Preliminary, Resulted 10/14/18 Gram Stain - Final, Resulted 10/14/18 Sputum Culture, Resulted Pending Justus Woods MD Oct 16, 2018 10:10
[2018-10-16] MEDS: OMEPRAZOLE 20 MG CAP PO SCH (10:16)
[2018-10-16] MEDS: POTASSIUM CHLORIDE 10 MEQ SR TABLET PO SCH ×3 (10:16→21:06)
[2018-10-16] MEDS: DRONEDARONE 400 MG TAB (MULTAQ) PO SCH ×2 (10:16→21:06)
[2018-10-16] MEDS: METOPROLOL SUCC *XL* 25MG TAB (TopROL *XL*) PO SCH (10:17)
[2018-10-16] MEDS: ENOXAPARIN 40 MG/0.4 ML SYRINGE (J1650) SC SCH (10:17)
[2018-10-16] MEDS: FUROSEMIDE 40 MG TAB PO SCH ×2 (11:15→16:34)
[2018-10-16 12:00] VITALS: BP 95/53
[2018-10-16] MEDS: methylPREDNISolone INJ 40 MG/1 ML VIAL (J2920) IV SCH (15:05)
[2018-10-16 16:00] VITALS: BP 90/52
[2018-10-16] MEDS: ONDANSETRON 4 MG TAB (S0181) PO PRN (16:38)
[2018-10-16 20:00] VITALS: BP 104/67
[2018-10-17] VITALS (8 sets, daily range): BP systolic 86–123; BP diastolic 54–66
[2018-10-17] MEDS: D5W IV SCH ×4 (00:07→18:16)
[2018-10-17] MEDS: TRIMETHOPRIM IV SCH ×4 (00:07→18:16)
[2018-10-17] MEDS: SULFAMETHOXAZOLE IV SCH ×4 (00:07→18:16)
[2018-10-17] MEDS: VANCOMYCIN HCL 1,000 MG, VIAL MATE ADAPTER 1 EACH in D5W 250 ML IV SCH (01:21)
[2018-10-17] MEDS: methylPREDNISolone INJ 40 MG/1 ML VIAL (J2920) IV SCH ×2 (02:31→14:47)
[2018-10-17] MEDS: PIPERACILLIN/TAZOBACTAM SOD 3.375 GM in D5W MINI-BAG PLUS 50 ML IV SCH ×4 (05:05→23:42)
[2018-10-17 05:34] LABS: HEMATOCRIT 36.5 % (42.0-52.0); HEMOGLOBIN 11.6 g/dl (13.5-17.5); MEAN CORPUSCULAR HEMOGLOBIN 26.5 pg (27.0-33.0); MEAN CORPUSCULAR HGB CONC 31.8 g/dl (32.0-36.5); MEAN CORPUSCULAR VOLUME 83.5 fl (80.0-96.0); PLATELET COUNT, AUTOMATED 136 10^3/uL (150-450); RED BLOOD COUNT 4.37 10^6/uL (4.30-6.10); WHITE BLOOD COUNT 4.7 10^3/uL (4.0-10.0)
[2018-10-17 05:59] LABS: BLOOD UREA NITROGEN 16 MG/DL (7-18); CALCIUM LEVEL 8.4 MG/DL (8.8-10.2); CARBON DIOXIDE LEVEL 33 MEQ/L (21-32); CHLORIDE LEVEL 91 MEQ/L (98-107); CREATININE FOR GFR 0.88 MG/DL (0.70-1.30); GLOMERULAR FILTRATION RATE > 60.0 (>49); GLUCOSE, FASTING 87 MG/DL (70-100); LDH LACTATE DEHYDROGENASE 522 U/L (87-241); MAGNESIUM LEVEL 2.3 MG/DL (1.8-2.4); POTASSIUM SERUM 4.4 MEQ/L (3.5-5.1); SODIUM LEVEL 130 MEQ/L (136-145)
--- NOTE | 2018-10-17 07:19 | REP ---
CHEST, SINGLE VIEW: Single view of the chest is performed and compared to prior study of 10/14/2018. Diffuse bilateral infiltrates are again noted. There may be slight worsening of the infiltrates in the left ling. Heart and mediastinum are grossly unchanged. Right central venous catheter is seen with the tip in the superior vena cava. Electronically Signed by Cisco Fields MD 10/17/2018 08:29 A
--- NOTE | 2018-10-17 07:41 | IPNPDOC ---
Subjective Date Seen The patient was seen on 10/17/18. Subjective Chief Complaint/HPI DUFFY, SOB Events since last encounter Noted improvement in dyspnea after coughing up significant amounts of mucous. Constitutional: Denies: Chills, Fever, Night Sweats ENT: Denies: Head Aches, Ear Pain, Dysphagia Skin: Denies: Rash, Lesions, Breakdown Pulmonary: Reports: Dyspnea, Cough Cardiovascular: Denies: Chest Pain, Palpitations, Orthopnea, Paroxysmal Noc. Dyspnea, Lt Headedness Gastrointestinal: Denies: Nausea, Vomiting, Abdominal Pain, Diarrhea, Constipation Genitourinary: Denies: Dysuria, Frequency, Incontinence, Retention Psych: Reports: Mood Normal; Denies: Depression, Memory Issues Objective Physical Examination General Exam: Positive: Alert, Cooperative, No Acute Distress ENT Exam: Positive: Mucous membr. moist/pink Chest Exam: Positive: Diminished (diffusely diminished with reduced air movement.), Other; Negative: Clear to auscultation, Rales, Rhonchi, Wheezing Heart Exam: Positive: Rate Normal, Regular Rhythm, Normal S1, Normal S2; Negative: Tachycardic, Irregular Rhythm Abdomen Exam: Positive: Normal bowel sounds, Soft; Negative: Tenderness Extremity Exam: Positive: Edema (2 mm pitting BLE) Neuro Exam: Positive: Normal Speech Psych Exam: Positive: Mood NL Assessment /Plan Problems (1) Acute respiratory failure with hypoxemia Status: Acute Response to Treatment: Stable, Improving Discussed With: Nurse, Patient Problem Specific Plan: Monitor Clinically, Repeat Labs Problem Text: D3 emperic Bactrim for PJP/D 4 Zosyn 10/17/18 fungal smear/culture and DFA staining obtained (ordered 10/15!) 10/17 CT chest: The diffuse bilateral interstitial and alveolar infiltrates identified on 09/23/2018 have decreased. The bilateral pleural effusions have decreased. The extensive mediastinal lymph node enlargement identified on 05/19/2089, has resolved. 10/17/18: patient states he feels significantly better. Continues to require 5 LNC. HOLD on diuresing due to soft BP. HR remains stable. Bl cx and sputum cx pending. 10/16: LDH elevated above baseline elevation from lymphoma which can be seen c PJP. Sulfa/TMP started yesterday. Hypoxic with minimal exertion. Diuresis has diminished since change to po lasix. will repeat BNP, may need IV lasix again. 09/28/18 Fungitell >500-Ddx: PJP, Lise spp, Aspergillus less likely given 09/24 A flavus/fumigatus, niger Ab -/galacto Ag - (2) Gram-positive cocci in clusters Status: Acute Response to Treatment: Stable Problem Text: 10/17 BCX2 P 10/13 BCX1/1 + for micrococcus. most likley contaminant. will repeat BCX (3) Acute on chronic diastolic (congestive) heart failure Status: Acute Response to Treatment: Stable, Improving Problem Specific Plan: Monitor Clinically Problem Text: 10/17/18: HOLD on diuresing due to soft BP. HR remains stable. 10/16: CXR looks a little wetter, BNP pending; may need increase laxix CXR in am, continue lasix for now. Last ECHO 09/18 with nl EF< Gr 1 diastolic dysfunction. Cont with Lasix IV, change diet to low sodium. Monitor I & Os. (4) Large B-cell lymphoma Status: Acute Problem Specific Plan: Monitor Clinically Problem Text: 10/16: may need to be rescheduled depending. Follows with [facility] Onc as outpt, scheduled for final chemo 10/21. Plan/VTE VTE Prophylaxis Ordered?: No VS, I&O, 24H, Fishbone Vital Signs/I&O Vital Signs Date Time Temp Pulse Resp B/P (MAP) Pulse Ox O2 Delivery O2 Flow Rate FiO2 10/17/18 04:00 5.0 10/17/18 04:00 98.4 70 20 110/58 (75) 93 10/14/18 12:00 40 10/14/18 08:54 Venturi Mask I&O- Last 24 Hours up to 6 AM 10/17/18 06:00 Intake Total 3308 ml Output Total 2250 ml Balance 1058 ml Laboratory Data 24H LABS Laboratory Tests 2 10/16/18 09:35: Anion Gap 8, Glomerular Filtration Rate > 60.0, Blood Urea Nitrogen 20H, Creatinine 0.92, Sodium Level 132L, Potassium Level 3.2L, Chloride Level 92L, Ca rbon Dioxide Level 32, Calcium Level 7.9L, KD-Kee-C-Type Natriuretic Peptide 447H 10/17/18 05:08: Anion Gap 6L, Glomerular Filtration Rate > 60.0, Blood Urea Nitrogen 16, Creatinine 0.88, Sodium Level 130L, Potassium Level 4.4#, Chloride Level 91L, Carbon Dioxide Level 33H, Calcium Level 8.4L, Nucleated Red Blood Cells % (auto) 0.0, Magnesium Level 2.3, Lactate Dehydrogenase 522H CBC/BMP Laboratory Tests 10/16/18 09:35 Calcium Level 7.9 L 10/17/18 05:08 Calcium Level 8.4 L, Red Blood Count 4.37, Mean Corpuscular Volume 83.5, Mean Corpuscular Hemoglobin 26.5 L, Mean Corpuscular Hemoglobin Concent 31.8 L, Red Cell Distribution Width 17.3 H Microbiology Microbiology 10/13/18 Blood Culture - Preliminary, Resulted 10/17/18 Fungal Smear, Received Pending 10/17/18 Fungal Culture, Received Pending 10/14/18 Gram Stain - Final, Resulted 10/14/18 Sputum Culture, Resulted Pending Jael Martínez Oct 17, 2018 07:41 Hermann Echols M.D. Oct 17, 2018 16:23
[2018-10-17] MEDS: OMEPRAZOLE 20 MG CAP PO SCH (09:00)
[2018-10-17] MEDS: METOPROLOL SUCC *XL* 25MG TAB (TopROL *XL*) PO SCH (09:00)
[2018-10-17] MEDS: FUROSEMIDE 40 MG TAB PO SCH ×2 (09:00→16:43)
[2018-10-17] MEDS: ENOXAPARIN 40 MG/0.4 ML SYRINGE (J1650) SC SCH (09:01)
[2018-10-17] MEDS: POTASSIUM CHLORIDE 10 MEQ SR TABLET PO SCH ×3 (09:01→20:14)
[2018-10-17] MEDS: DRONEDARONE 400 MG TAB (MULTAQ) PO SCH ×2 (09:01→20:14)
--- NOTE | 2018-10-17 10:48 | REP ---
CT of the chest without IV contrast: Comparison is 09/23/2018. There are diffuse bilateral alveolar and interstitial infiltrates. These have mildly improved compared to 09/23/2018. There are bilateral pleural effusions. These have slightly decreased compared to 09/23/2018. On a prior study dated 05/19/2018. There is extensive bulky mediastinal lymph node enlargement resulting in extrinsic tracheal narrowing. This lymphadenopathy is no longer present. There is no axillary lymph node enlargement. Cardiac size is normal. There is no pericardial effusion. The unenhanced thoracic aorta is unremarkable. The visualized upper abdomen is unremarkable. Impression: The diffuse bilateral interstitial and alveolar infiltrates identified on 09/23/2018 have decreased. The bilateral pleural effusions have decreased. The extensive mediastinal lymph node enlargement identified on 05/19/2089, has resolved. Electronically Signed by Cisco Finch MD 10/17/2018 10:39 A
[2018-10-18] MEDS: TRIMETHOPRIM IV SCH ×4 (00:54→18:00)
[2018-10-18] MEDS: D5W IV SCH ×4 (00:54→18:00)
[2018-10-18] MEDS: SULFAMETHOXAZOLE IV SCH ×4 (00:54→18:00)
[2018-10-18] MEDS: methylPREDNISolone INJ 40 MG/1 ML VIAL (J2920) IV SCH ×2 (02:48→14:20)
[2018-10-18 04:00] VITALS: BP 92/50
[2018-10-18] MEDS: PIPERACILLIN/TAZOBACTAM SOD 3.375 GM in D5W MINI-BAG PLUS 50 ML IV SCH ×4 (05:54→22:01)
[2018-10-18 06:11] LABS: BLOOD UREA NITROGEN 17 MG/DL (7-18); CALCIUM LEVEL 7.9 MG/DL (8.8-10.2); CARBON DIOXIDE LEVEL 33 MEQ/L (21-32); CHLORIDE LEVEL 91 MEQ/L (98-107); CREATININE FOR GFR 0.91 MG/DL (0.70-1.30); GLOMERULAR FILTRATION RATE > 60.0 (>49); GLUCOSE, FASTING 74 MG/DL (70-100); MAGNESIUM LEVEL 2.2 MG/DL (1.8-2.4); POTASSIUM SERUM 4.4 MEQ/L (3.5-5.1); SODIUM LEVEL 131 MEQ/L (136-145)
[2018-10-18 08:00] VITALS: BP 113/65
[2018-10-18] MEDS: POTASSIUM CHLORIDE 10 MEQ SR TABLET PO SCH ×3 (08:24→20:28)
[2018-10-18] MEDS: DRONEDARONE 400 MG TAB (MULTAQ) PO SCH ×2 (08:25→20:29)
[2018-10-18] MEDS: FUROSEMIDE 40 MG TAB PO SCH ×2 (08:25→18:31)
[2018-10-18] MEDS: OMEPRAZOLE 20 MG CAP PO SCH (08:25)
[2018-10-18] MEDS: ENOXAPARIN 40 MG/0.4 ML SYRINGE (J1650) SC SCH (08:26)
[2018-10-18] MEDS: METOPROLOL SUCC *XL* 25MG TAB (TopROL *XL*) PO SCH (09:00)
--- NOTE | 2018-10-18 09:09 | IPNPDOC ---
Subjective Date Seen The patient was seen on 10/18/18. Subjective Chief Complaint/HPI SOB Constitutional: Denies: Chills, Fever, Night Sweats Pulmonary: Reports: Dyspnea (severe with hypoxia on exertion) Cardiovascular: Denies: Chest Pain, Palpitations, Orthopnea, Paroxysmal Noc. Dyspnea, Lt Headedness Psych: Reports: Mood Normal; Denies: Depression, Memory Issues Objective Physical Examination General Exam: Positive: Alert, Cooperative, No Acute Distress ENT Exam: Positive: Mucous membr. moist/pink Chest Exam: Positive: Diminished (diffusely diminished with reduced air movement.), Other; Negative: Clear to auscultation, Rales, Rhonchi, Wheezing Heart Exam: Positive: Rate Normal, Regular Rhythm, Normal S1, Normal S2; Negative: Tachycardic, Irregular Rhythm Abdomen Exam: Positive: Normal bowel sounds, Soft; Negative: Tenderness Neuro Exam: Positive: Normal Speech Psych Exam: Positive: Mood NL Assessment /Plan Problems (1) Acute respiratory failure with hypoxemia Status: Acute Response to Treatment: Stable, Improving Discussed With: Nurse, Patient Problem Specific Plan: Monitor Clinically, Repeat Labs Problem Text: D4 empiric Bactrim for PJP/D 5 Zosyn 10/18/18: repeat bl cxs and fungal smear remain pending. Patient continues with dyspnea. CT Chest competed and demonstrates improvement. see report below. 10/17/18 fungal smear/culture and DFA staining obtained (ordered 10/15!) 10/17 CT chest: The diffuse bilateral interstitial and alveolar infiltrates identified on 09/23/2018 have decreased. The bilateral pleural effusions have decreased. The extensive mediastinal lymph node enlargement identified on 05/19/2089, has resolved. 10/17/18: patient states he feels significantly better. Continues to require 5 LNC. HOLD on diuresing due to soft BP. HR remains stable. Bl cx and sputum cx pending. 10/16: LDH elevated above baseline elevation from lymphoma which can be seen c PJP. Sulfa/TMP started yesterday. Hypoxic with minimal exertion. Diuresis has diminished since change to po lasix. will repeat BNP, may need IV lasix again. 09/28/18 Fungitell >500-Ddx: PJP, Lise spp, Aspergillus less likely given 09/24 A flavus/fumigatus, niger Ab -/galacto Ag - (2) Gram-positive cocci in clusters Status: Acute Response to Treatment: Stable Problem Text: 10/17 BCX2 P 10/13 BCX1/1 + for micrococcus. most likley contaminant. will repeat BCX (3) Acute on chronic diastolic (congestive) heart failure Status: Acute Response to Treatment: Stable, Improving Problem Specific Plan: Monitor Clinically Problem Text: 10/17/18: HOLD on diuresing due to soft BP. HR remains stable. 10/16: CXR looks a little wetter, BNP pending; may need increase laxix CXR in am, continue lasix for now. Last ECHO 09/18 with nl EF< Gr 1 diastolic dysfunction. Cont with Lasix IV, change diet to low sodium. Monitor I & Os. (4) Large B-cell lymphoma Status: Acute Problem Specific Plan: Monitor Clinically Problem Text: 10/16: may need to be rescheduled depending. Follows with [facility] Onc as outpt, scheduled for final chemo 10/21. Plan/VTE VTE Prophylaxis Ordered?: No VS, I&O, 24H, Fishbone Vital Signs/I&O Vital Signs Date Time Temp Pulse Resp B/P (MAP) Pulse Ox O2 Delivery O2 Flow Rate FiO2 10/18/18 08:00 97.0 73 20 113/65 (81) 96 5.0 10/14/18 12:00 40 10/14/18 08:54 Venturi Mask I&O- Last 24 Hours up to 6 AM 10/18/18 06:00 Intake Total 2127.625 ml Output Total 1445 ml Balance 682.625 ml Laboratory Data 24H LABS Laboratory Tests 2 10/18/18 05:14: Anion Gap 7L, Glomerular Filtration Rate > 60.0, Blood Urea Nitrogen 17, Creatinine 0.91, Sodium Level 131L, Potassium Level 4.4, Chloride Level 91L, Carbon Dioxide Level 33H, Calcium Level 7.9L, Magnesium Level 2.2 CBC/BMP Laboratory Tests 10/18/18 05:14 Calcium Level 7.9 L Microbiology Microbiology 10/17/18 Blood Culture - Preliminary, Resulted No growth after 24 hours . All specim... 10/17/18 Blood Culture - Preliminary, Resulted No growth after 24 hours . All specim... 10/13/18 Blood Culture - Final, Complete Micrococcus Luteus 10/17/18 Fungal Smear, Received Pending 10/17/18 Fungal Culture, Received Pending 10/14/18 Gram Stain - Final, Complete 10/14/18 Sputum Culture - Final, Complete Klebsiella Pneumoniae Yeast Like Organism Jael Martínez [facility] Oct 18, 2018 09:09
[2018-10-18 11:38] VITALS: BP 104/55
[2018-10-18 12:03] LABS: HEMATOCRIT 36.1 % (42.0-52.0); HEMOGLOBIN 11.5 g/dl (13.5-17.5); MEAN CORPUSCULAR HEMOGLOBIN 26.9 pg (27.0-33.0); MEAN CORPUSCULAR HGB CONC 31.9 g/dl (32.0-36.5); MEAN CORPUSCULAR VOLUME 84.5 fl (80.0-96.0); PLATELET COUNT, AUTOMATED 115 10^3/uL (150-450); RED BLOOD COUNT 4.27 10^6/uL (4.30-6.10)
[2018-10-18 12:24] LABS: LYMPHOCYTES 1 % (16-52); METAMYELOCYTES 3 % (0-0); MONOCYTES 8 % (0-8); NEUTROPHILS 86 % (35-75); PLATELET ESTIMATE DECREASED (NORMAL)
[2018-10-18 12:25] LABS: ANISOCYTOSIS 1+
[2018-10-18 12:26] LABS: OVALOCYTES 1+
[2018-10-18 15:46] VITALS: BP 99/60
[2018-10-18] MEDS ORDERED: SODIUM CHLORIDE HYPERTONIC 3% 15ML NEB SOL NEB ONE (17:00)
--- NOTE | 2018-10-18 19:28 | CR ---
DATE OF CONSULTATION: 10/18/2018 Asked to consult by Dr. Mar for evaluation of pulmonary infiltrates, worsening shortness of breath in a patient with lymphoma. HISTORY OF PRESENT ILLNESS: Mr. Cabrera is a 63-year-old gentleman diagnosed with B-cell lymphoma in April 2018 when he presented with a chronic cough. The patient follows up with Dr. Rayne Waldron and has received five of his six cycles of R-CHOP. He had tolerated his chemotherapy well until September 21, when he presented with worsening shortness of breath and was hospitalized until September 30. He was initially treated for congestive heart failure. Was seen in consultation by Dr. Arellano who did not feel that his symptoms were related to congestive heart failure. Then he was seen in consultation with Dr. Cruz, and a fungal workup was initiated. He had Histoplasma antibody, Aspergillus antibody, Aspergillus galactomannan, and all were negative. Beta 1-3 glucan was more than 500, the results of which were not available upon his discharge. He finished 6 days of cefepime and vancomycin and discharged home on oral cefdinir. After discharge the patient felt somewhat better, but his shortness of breath gradually got worse, so he came back to the hospital. On October 13 he had a temperature of 100.5, some chills, cough mostly productive of whitish phlegm. No nausea, vomiting, or diarrhea. No abdominal pain. He was tachycardiac. He required 15 liters of oxygen. He was diuresis and started on intravenous (IV) Zosyn and Bactrim along with IV Solu-Medrol. REVIEW OF SYSTEMS: He had some fevers and chills. No headache. No blurry vision. Shortness of breath worsening, currently on 5 liters oxygen, cough productive mostly whitish phlegm. No hemoptysis. No chest pain. No nausea, vomiting, diarrhea, abdominal pain. No upper or lower extremity localizing weakness but complains of weakness in general that he relates to his lymphoma. PAST MEDICAL HISTORY: 1. Paroxysmal atrial fibrillation. 2. Diastolic congestive heart failure. 3. Lymphoma, on R-CHOP with diffuse B cell involving cerebrospinal fluid (CSF). 4. Pleural effusion. 5. Biopsy of a groin. 6. History of diabetes, on diet. PAST SURGICAL HISTORY: Lymph node biopsy, groin, for diagnosis of lymphoma. ALLERGIES: No known drug allergies. SOCIAL HISTORY: He denies tobacco, alcohol use, or illicit drug use. He is a full code. He is not . He lives alone. He traveled to [place] for the summer. 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 FAMILY HISTORY: Nonrevealing. PHYSICAL EXAMINATION: A sick-looking gentleman in mild respiratory discomfort. Temperature is 97.1, pulse 72, respirations 22, blood pressure 99/60, oxygen saturation 93% on 5 liters nasal cannula. HEART: Normal S1, S2. No murmurs. LUNGS: Few crackles at the bases and diminished. ABDOMEN: Soft, nontender. No hepatosplenomegaly. BACK: No costovertebral angle (CVA) or lumbosacral tenderness. EXTREMITIES: Pitting edema +1 bilaterally. No rashes. No lesions. Oropharynx is clear with no thrush. NECK: No cervical adenopathy. GROIN: No adenopathy, but a biopsy site on the left groin, a well-healed scar. LABORATORY DATA: White count 5, hemoglobin 11.5, hematocrit 36.1, platelets 115, 86% neutrophils, 2% bands, 1% lymphocytes, 8% monocytes. Sodium 131, potassium 4.4, chloride 91, bicarbonate 33, BUN 17, creatinine 0.91, glucose 74, calcium 7.9, magnesium 2.2. LDH 522. BNP 447. Lactic acid was 3.3 on admission, currently 2.2. BNP was 1378 on admission, which has improved. Aspergillus galactomannan is 0.04. Procalcitonin 0.16. Blood cultures, one done on October 13, had Micrococcus gluteus, which is a contaminant. Repeat blood cultures done on October 17 are no growth after 24 hours. Sputum culture done on October 14 had few Klebsiella and few yeastlike organism. Chest CT done on October 17 shows bilateral pleural effusion, decreased. Diffuse bilateral interstitial and alveolar infiltrates identified on September 23 have decreased, but there are still significant infiltrates. Chest x-ray done on October 16 shows diffuse bilateral infiltrates again noted. Vascular ultrasound on October 14: Duplex, bilateral lower extremities, showed no evidence of deep vein thrombosis (DVT). IMPRESSION: This is a 63-year-old gentleman who has a history of large-B cell lymphoma status post five cycles of R-CHOP, who was admitted in August with increasing shortness of breath, treated for bacterial pneumonia with broad-spectrum antibiotic, including cefepime and vancomycin. Discharged on cefdinir. His beta 1-3 glucan done on September 24 was positive bowel, which is consistent with fungal infection, most likely Pneumocystis pneumonia, as his Aspergillus galactomannan was negative. This hospitalization, patient was started on IV Bactrim along with prednisone. Zosyn for broad-spectrum coverage was also added. The patient continues to be hypoxic and states his shortness of breath is slightly worse. PLAN: Differential diagnosis most likely is Pneumocystis pneumonia, less likely Aspergillus, as his galactomannan is negative, and he does not have cavitary pneumonia. Other fungal pathogens are less likely, but these will be ruled out with antigen testing, such as Histoplasma and Cryptococcus. PLAN: Continue with IV Bactrim for Pneumocystis pneumonia. Sputum induction to be sent for cytology to rule out Pneumocystis. This sputum needs to be induced with hypertonic saline. Cryptococcus antigen, Histoplasma antigen will be added. The patient to continue on IV Solu-Medrol or prednisone for 21 days for hypoxia with Pneumocystis pneumonia (PCP) . If the patient continues to worsen, please consult pulmonary for bronchoscopy and bronchoalveolar lavage (BAL).
[2018-10-18 20:00] VITALS: BP 108/57
[2018-10-18] MEDS: POTASSIUM CHLORIDE 10% LIQ 20 MEQ/15 ML UDC PO SCH (20:47)
[2018-10-18 23:59] VITALS: BP 105/58
[2018-10-19] VITALS (8 sets, daily range): BP systolic 96–112; BP diastolic 55–66; O2SAT 79–88
[2018-10-19] MEDS: D5W IV SCH ×5 (00:33→23:54)
[2018-10-19] MEDS: TRIMETHOPRIM IV SCH ×5 (00:33→23:54)
[2018-10-19] MEDS: SULFAMETHOXAZOLE IV SCH ×5 (00:33→23:54)
[2018-10-19] MEDS: methylPREDNISolone INJ 40 MG/1 ML VIAL (J2920) IV SCH (01:38)
[2018-10-19] MEDS: PIPERACILLIN/TAZOBACTAM SOD 3.375 GM in D5W MINI-BAG PLUS 50 ML IV SCH ×4 (04:55→22:20)
[2018-10-19 06:19] LABS: HEMATOCRIT 34.7 % (42.0-52.0); HEMOGLOBIN 11.2 g/dl (13.5-17.5); MEAN CORPUSCULAR HEMOGLOBIN 27.3 pg (27.0-33.0); MEAN CORPUSCULAR HGB CONC 32.3 g/dl (32.0-36.5); MEAN CORPUSCULAR VOLUME 84.6 fl (80.0-96.0); PLATELET COUNT, AUTOMATED 105 10^3/uL (150-450); WHITE BLOOD COUNT 4.7 10^3/uL (4.0-10.0)
[2018-10-19 06:33] LABS: BLOOD UREA NITROGEN 16 MG/DL (7-18); CALCIUM LEVEL 8.3 MG/DL (8.8-10.2); CARBON DIOXIDE LEVEL 33 MEQ/L (21-32); CHLORIDE LEVEL 91 MEQ/L (98-107); CREATININE FOR GFR 0.91 MG/DL (0.70-1.30); GLOMERULAR FILTRATION RATE > 60.0 (>49); GLUCOSE, FASTING 86 MG/DL (70-100); MAGNESIUM LEVEL 2.3 MG/DL (1.8-2.4); POTASSIUM SERUM 4.5 MEQ/L (3.5-5.1); SODIUM LEVEL 132 MEQ/L (136-145)
[2018-10-19 06:44] LABS: LYMPHOCYTES 6 % (16-52); MONOCYTES 7 % (0-8); NEUTROPHILS 85 % (35-75)
[2018-10-19 06:45] LABS: PLATELET ESTIMATE NORMAL (NORMAL)
--- NOTE | 2018-10-19 08:27 | IPNPDOC ---
Subjective Date Seen The patient was seen on 10/19/18. Subjective Chief Complaint/HPI dyspnea, pneumonia Events since last encounter S/p ID consult. Further sputum cxs ordered. Continues with poor exertional tole alycia with short distances. Constitutional: Reports: Weakness, Fatigue; Denies: Chills, Fever, Night Sweats ENT: Denies: Head Aches, Ear Pain, Dysphagia Skin: Denies: Rash, Lesions, Breakdown Pulmonary: Reports: Dyspnea, Cough Cardiovascular: Denies: Chest Pain, Palpitations, Orthopnea, Paroxysmal Noc. Dyspnea, Lt Headedness Gastrointestinal: Denies: Nausea, Vomiting, Abdominal Pain, Diarrhea, Constipation Psych: Reports: Depression; Denies: Thoughts of Self Harm Objective Physical Examination General Exam: Positive: Alert, Cooperative, No Acute Distress ENT Exam: Positive: Mucous membr. moist/pink Chest Exam: Positive: Diminished (diffusely diminished with reduced air movement.), Other; Negative: Clear to auscultation, Rales, Rhonchi, Wheezing Heart Exam: Positive: Rate Normal, Regular Rhythm, Normal S1, Normal S2; Negative: Tachycardic, Irregular Rhythm Abdomen Exam: Positive: Normal bowel sounds, Soft; Negative: Tenderness Neuro Exam: Positive: Normal Speech Psych Exam: Positive: Mood NL Assessment /Plan Problems (1) Acute respiratory failure with hypoxemia Status: Acute Response to Treatment: Stable, Improving Discussed With: Nurse, Patient Problem Specific Plan: Monitor Clinically, Repeat Labs Problem Text: D5 empiric Bactrim for PJP/D6 Zosyn 10/19/18: s/p ID consult. Duonebs added q 6 hrs. DC solu-medrol. Start Prednisone 60 mg po bid. 10/18/18: repeat bl cxs and fungal smear remain pending. Patient continues with dyspnea. CT Chest competed and demonstrates improvement. see report below. 10/17/18 fungal smear/culture and DFA staining obtained (ordered 10/15!) 10/17 CT chest: The diffuse bilateral interstitial and alveolar infiltrates identified on 09/23/2018 have decreased. The bilateral pleural effusions have decreased. The extensive mediastinal lymph node enlargement identified on 05/19/2089, has resolved. 10/17/18: patient states he feels significantly better. Continues to require 5 LNC. HOLD on diuresing due to soft BP. HR remains stable. Bl cx and sputum cx pending. 10/16: LDH elevated above baseline elevation from lymphoma which can be seen c PJP. Sulfa/TMP started yesterday. Hypoxic with minimal exertion. Diuresis has diminished since change to po lasix. will repeat BNP, may need IV lasix again. 09/28/18 Fungitell >500-Ddx: PJP, Lise spp, Aspergillus less likely given 09/24 A flavus/fumigatus, niger Ab -/galacto Ag - (2) Acute on chronic diastolic (congestive) heart failure Status: Acute Response to Treatment: Stable, Improving Problem Specific Plan: Monitor Clinically Problem Text: 10/17/18: HOLD on diuresing due to soft BP. HR remains stable. 10/16: CXR looks a little wetter, BNP pending; may need increase laxix CXR in am, continue lasix for now. Last ECHO 09/18 with nl EF< Gr 1 diastolic dysfunction. Cont with Lasix IV, change diet to low sodium. Monitor I & Os. (3) Large B-cell lymphoma Status: Acute Problem Specific Plan: Monitor Clinically Problem Text: 10/16: may need to be rescheduled depending. Follows with [facility] Onc as outpt, scheduled for final chemo 10/21. (4) Gram-positive cocci in clusters Status: Resolved Response to Treatment: Stable Problem Text: 10/19/18: repeat bl. cx negative. 10/17 BCX2 P 10/13 BCX1/1 + for micrococcus. most likley contaminant. will repeat BCX Plan/VTE VTE Prophylaxis Ordered?: No VS, I&O, 24H, Fishbone Vital Signs/I&O Vital Signs Date Time Temp Pulse Resp B/P (MAP) Pulse Ox O2 Delivery O2 Flow Rate FiO2 10/19/18 04:00 98.2 73 18 102/55 (71) 90 5.0 10/14/18 12:00 40 10/14/18 08:54 Venturi Mask I&O- Last 24 Hours up to 6 AM 10/19/18 06:00 Intake Total 1101.875 ml Output Total 1650 ml Balance -548.125 ml Laboratory Data 24H LABS Laboratory Tests 2 10/19/18 05:37: Immature Granulocyte % (Auto) , White Blood Count 4.7, Red Blood Count 4.10L, Hemoglobin 11.2L, Hematocrit 34.7L, Mean Corpuscular Volume 84.6, Mean Corpuscular Hemoglobin 27.3, Mean Corpuscular Hemoglobin Concent 32.3, Red Cell Distribution Width 17.4H, Platelet Count 105L, Lymphocytes # (Auto) , Nucleated Red Blood Cells % (auto) 0.0, Neutrophils 85H, Band Neutrophils 2, Lymphocytes (Manual) 6L, Monocytes (Manual) 7, Platelet Estimate NORMAL, Red Blood Cell Morphology NORMAL, Anion Gap 8, Glomerular Filtration Rate > 60.0, Blood Urea Nitrogen 16, Creatinine 0.91, Sodium Level 132L, Potassium Level 4.5, Chloride Level 91L, Carbon Dioxide Level 33H, Calcium Level 8.3L, Magnesium Level 2.3 CBC/BMP Laboratory Tests 10/19/18 05:37 Red Blood Count 4.10 L, Mean Corpuscular Volume 84.6, Mean Corpuscular Hemoglobin 27.3, Mean Corpuscular Hemoglobin Concent 32.3, Red Cell Distribution Width 17.4 H, Lymphocytes # (Auto) , Calcium Level 8.3 L Microbiology Microbiology 10/17/18 Blood Culture - Preliminary, Resulted No growth after 24 hours . All specim... 10/17/18 Blood Culture - Preliminary, Resulted No growth after 24 hours . All specim... 10/13/18 Blood Culture - Final, Complete Micrococcus Luteus 10/17/18 Fungal Smear, Received Pending 10/17/18 Fungal Culture, Received Pending 10/14/18 Gram Stain - Final, Complete 10/14/18 Sputum Culture - Final, Complete Klebsiella Pneumoniae Yeast Like Organism Jael Martínez [facility] Oct 19, 2018 08:27
[2018-10-19] MEDS: IPRATROPIUM 0.5MG/ALBUTEROL 2.5MG INH SOL UD 3ML (DUONEB)(J7620) NEB SCH ×3 (08:41→20:33)
[2018-10-19] MEDS: predniSONE 20 MG TAB PO SCH ×2 (09:38→20:40)
[2018-10-19] MEDS: OMEPRAZOLE 20 MG CAP PO SCH (09:38)
[2018-10-19] MEDS: ENOXAPARIN 40 MG/0.4 ML SYRINGE (J1650) SC SCH (09:38)
[2018-10-19] MEDS: FUROSEMIDE 40 MG TAB PO SCH ×2 (09:39→17:25)
[2018-10-19] MEDS: DRONEDARONE 400 MG TAB (MULTAQ) PO SCH ×2 (09:39→20:41)
[2018-10-19] MEDS: POTASSIUM CHLORIDE 10% LIQ 20 MEQ/15 ML UDC PO SCH ×3 (09:39→20:40)
[2018-10-19] MEDS ORDERED: SODIUM CHLORIDE HYPERTONIC 3% 15ML NEB SOL NEB ONE (10:00)
[2018-10-19] MEDS ORDERED: SLF 3 ML SYR IV PRN (14:30)
[2018-10-19] MEDS: METOPROLOL SUCC *XL* 12.5MG PER 1/2 TAB (TopROL *XL*) PO SCH (20:41)
[2018-10-19] MEDS: SLF 3 ML SYR IV SCH (21:20)
[2018-10-20] MEDS: IPRATROPIUM 0.5MG/ALBUTEROL 2.5MG INH SOL UD 3ML (DUONEB)(J7620) NEB SCH ×4 (01:48→19:57)
[2018-10-20 04:00] VITALS: BP 110/62
[2018-10-20] MEDS: PIPERACILLIN/TAZOBACTAM SOD 3.375 GM in D5W MINI-BAG PLUS 50 ML IV SCH ×2 (04:32→11:06)
[2018-10-20 04:51] LABS: HEMATOCRIT 34.6 % (42.0-52.0); HEMOGLOBIN 10.9 g/dl (13.5-17.5); MEAN CORPUSCULAR HEMOGLOBIN 26.9 pg (27.0-33.0); MEAN CORPUSCULAR HGB CONC 31.5 g/dl (32.0-36.5); MEAN CORPUSCULAR VOLUME 85.4 fl (80.0-96.0); PLATELET COUNT, AUTOMATED 108 10^3/uL (150-450); RED BLOOD COUNT 4.05 10^6/uL (4.30-6.10); WHITE BLOOD COUNT 6.9 10^3/uL (4.0-10.0)
[2018-10-20 05:03] LABS: BLOOD UREA NITROGEN 15 MG/DL (7-18); CALCIUM LEVEL 8.3 MG/DL (8.8-10.2); CARBON DIOXIDE LEVEL 29 MEQ/L (21-32); CHLORIDE LEVEL 93 MEQ/L (98-107); CREATININE FOR GFR 0.86 MG/DL (0.70-1.30); GLOMERULAR FILTRATION RATE > 60.0 (>49); GLUCOSE, FASTING 90 MG/DL (70-100); MAGNESIUM LEVEL 2.2 MG/DL (1.8-2.4); POTASSIUM SERUM 5.1 MEQ/L (3.5-5.1); SODIUM LEVEL 132 MEQ/L (136-145)
[2018-10-20 05:40] LABS: ANISOCYTOSIS 1+; LYMPHOCYTES 6 % (16-52); METAMYELOCYTES 7 % (0-0); MONOCYTES 5 % (0-8); MYELOCYTES 2 % (0-0); NEUTROPHILS 76 % (35-75); PLATELET ESTIMATE NORMAL (NORMAL)
[2018-10-20] MEDS: TRIMETHOPRIM IV SCH ×3 (05:56→18:24)
[2018-10-20] MEDS: D5W IV SCH ×3 (05:56→18:24)
[2018-10-20] MEDS: SULFAMETHOXAZOLE IV SCH ×3 (05:56→18:24)
[2018-10-20] MEDS: SLF 3 ML SYR IV SCH ×3 (05:57→21:09)
[2018-10-20 08:00] VITALS: BP 116/61
[2018-10-20] MEDS: predniSONE 20 MG TAB PO SCH ×2 (09:59→20:44)
[2018-10-20] MEDS: OMEPRAZOLE 20 MG CAP PO SCH (09:59)
[2018-10-20] MEDS: FUROSEMIDE 40 MG TAB PO SCH ×2 (10:00→18:03)
[2018-10-20] MEDS: ENOXAPARIN 40 MG/0.4 ML SYRINGE (J1650) SC SCH (10:01)
[2018-10-20] MEDS: DRONEDARONE 400 MG TAB (MULTAQ) PO SCH ×2 (10:07→20:44)
--- NOTE | 2018-10-20 11:55 | IPNPDOC ---
Subjective Date Seen The patient was seen on 10/20/18. Subjective Chief Complaint/HPI Still c/o SOB with minimal exertion. no CP Constitutional: Denies: Chills, Fever Pulmonary: Reports: Dyspnea; Denies: Cough Cardiovascular: Denies: Chest Pain, Palpitations Gastrointestinal: Denies: Nausea, Vomiting, Abdominal Pain, Diarrhea, Constipation Objective Physical Examination General Exam: Positive: Alert, Cooperative, No Acute Distress Chest Exam: Positive: Diminished (diffusely diminished with reduced air movement.), Other; Negative: Clear to auscultation, Rales, Rhonchi, Wheezing Heart Exam: Positive: Rate Normal, Regular Rhythm, Normal S1, Normal S2; Negative: Tachycardic, Irregular Rhythm Abdomen Exam: Positive: Normal bowel sounds, Soft; Negative: Tenderness Extremity Exam: Positive: Edema (2+ edema BL) Neuro Exam: Positive: Normal Speech Psych Exam: Positive: Mood NL Assessment /Plan Problems (1) Acute respiratory failure with hypoxemia Status: Acute Response to Treatment: Stable, Improving Discussed With: Nurse, Patient Problem Specific Plan: Monitor Clinically, Repeat Labs Problem Text: D6 empiric Bactrim for PJP/D6 Zosyn 10/19/18: s/p ID consult. Duonebs added q 6 hrs. DC solu-medrol. Start Prednisone 60 mg po bid. 10/18/18: repeat bl cxs and fungal smear remain pending. Patient continues with dyspnea. CT Chest competed and demonstrates improvement. see report below. 10/17/18 fungal smear/culture and DFA staining obtained (ordered 10/15!) 10/17 CT chest: The diffuse bilateral interstitial and alveolar infiltrates identified on 09/23/2018 have decreased. The bilateral pleural effusions have decreased. The extensive mediastinal lymph node enlargement identified on 05/19/2089, has resolved. 10/17/18: patient states he feels significantly better. Continues to require 5 LNC. HOLD on diuresing due to soft BP. HR remains stable. Bl cx and sputum cx pending. 10/16: LDH elevated above baseline elevation from lymphoma which can be seen c PJP. Sulfa/TMP started yesterday. Hypoxic with minimal exertion. Diuresis has diminished since change to po lasix. will repeat BNP, may need IV lasix again. 09/28/18 Fungitell >500-Ddx: PJP, Lise spp, Aspergillus less likely given 09/24 A flavus/fumigatus, niger Ab -/galacto Ag - (2) Acute on chronic diastolic (congestive) heart failure Status: Acute Response to Treatment: Stable, Improving Problem Specific Plan: Monitor Clinically Problem Text: 10/20 - Getting Lasix 40 BID with fair diuresis per I + Os BP stable 10/17/18: HOLD on diuresing due to soft BP. HR remains stable. 10/16: CXR looks a little wetter, BNP pending; may need increase laxix CXR in am, continue lasix for now. Last ECHO 09/18 with nl EF< Gr 1 diastolic dysfunction. Cont with Lasix IV, change diet to low sodium. Monitor I & Os. (3) Large B-cell lymphoma Status: Acute Problem Specific Plan: Monitor Clinically Problem Text: 10/16: may need to be rescheduled depending. Follows with [facility] Onc as outpt, scheduled for final chemo 10/21. (4) Gram-positive cocci in clusters Status: Resolved Response to Treatment: Stable Problem Text: 10/19/18: repeat bl. cx negative. 10/17 BCX2 P 10/13 BCX1/1 + for micrococcus. most likley contaminant. will repeat BCX (5) Pancytopenia due to chemotherapy Status: Resolved Problem Text: s/p Nulasta 10/14 (6) Paroxysmal atrial fibrillation Status: Chronic Response to Treatment: Stable Problem Text: rate controlled on Metoprolol and Multaq Plan/VTE VTE Prophylaxis Ordered?: Yes (Lovenox) VS, I&O, 24H, Fishbone Vital Signs/I&O Vital Signs Date Time Temp Pulse Resp B/P (MAP) Pulse Ox O2 Delivery O2 Flow Rate FiO2 10/20/18 08:00 96.6 76 20 116/61 (79) 99 8.0 10/19/18 13:41 Nasal Cannula 10/14/18 12:00 40 I&O- Last 24 Hours up to 6 AM 10/20/18 06:00 Intake Total 1313.750 ml Output Total 2475 ml Balance -1161.250 ml Laboratory Data 24H LABS Laboratory Tests 2 10/20/18 04:29: Immature Granulocyte % (Auto) , White Blood Count 6.9, Red Blood Count 4.05L, Hemoglobin 10.9L, Hematocrit 34.6L, Mean Corpuscular Volume 85.4, Mean Corpuscular Hemoglobin 26.9L, Mean Corpuscular Hemoglobin Concent 31.5L, Red Cell Distribution Width 17.4H, Platelet Count 108L, Lymphocytes # (Auto) , Nucleated Red Blood Cells % (auto) 0.0, Neutrophils 76H, Band Neutrophils 4, Lymphocytes (Manual) 6L, Monocytes (Manual) 5, Metamyelocytes 7H, Myelocytes 2H, Platelet Estimate NORMAL, Anisocytosis 1+, Anion Gap 10, Glomerular Filtration R ate > 60.0, Blood Urea Nitrogen 15, Creatinine 0.86, Sodium Level 132L, Potassium Level 5.1, Chloride Level 93L, Carbon Dioxide Level 29, Calcium Level 8.3L, Magnesium Level 2.2 CBC/BMP Laboratory Tests 10/20/18 04:29 Red Blood Count 4.05 L, Mean Corpuscular Volume 85.4, Mean Corpuscular Hemoglobin 26.9 L, Mean Corpuscular Hemoglobin Concent 31.5 L, Red Cell Distribution Width 17.4 H, Lymphocytes # (Auto) , Calcium Level 8.3 L Microbiology Microbiology 10/17/18 Blood Culture - Preliminary, Resulted No Growth after 72 hours. All specime... 10/17/18 Blood Culture - Preliminary, Resulted No Growth after 72 hours. All specime... 10/13/18 Blood Culture - Final, Complete Micrococcus Luteus 10/17/18 Fungal Smear, Received Pending 10/17/18 Fungal Culture, Received Pending 10/14/18 Gram Stain - Final, Complete 10/14/18 Sputum Culture - Final, Complete Klebsiella Pneumoniae Yeast Like Organism JILL NOGUEIRA PA-C Oct 20, 2018 11:55
[2018-10-20 12:00] VITALS: BP 107/64
[2018-10-20 16:00] VITALS: BP 110/61
[2018-10-20] MEDS ORDERED: SODIUM CHLORIDE HYPERTONIC 3% 15ML NEB SOL NEB ONE (17:00)
[2018-10-20 20:34] VITALS: BP 115/68
[2018-10-20] MEDS: METOPROLOL SUCC *XL* 12.5MG PER 1/2 TAB (TopROL *XL*) PO SCH (20:45)
--- NOTE | 2018-10-20 22:13 | IPN ---
DATE: 10/14/2018 Henrik does not feel significantly better today. He states he is very short of breath with minimal exertion. O2 sat is 97% on 8 liters at rest, but as soon as he exerts himself even just standing up to urinate he desaturates to high 70s. He has a mild cough. But significant shortness of breath. No pleuritic chest pain. MEDICATIONS - prednisone 60 mg by mouth twice a day - trimethoprim sulfamethoxazole at a dose of 20 mg per kg per day. The trimethoprim dose appropriately dosed. - Zosyn currently day #7. LABS: White count of 6.9, hemoglobin 10.9, hematocrit 34.6, platelets 108, 76% neutrophils, 4% bands, 6% lymphocytes. Sodium 132, potassium 5.1, chloride 93, bicarb 29, BUN 15, creatinine 0.86, glucose 90, calcium 8.3, magnesium 2.2, BNP 447 down from 1378. Blood cultures, one on admission positive for micrococcus but on October 17 two sets of blood cultures were negative. Sputum culture from October 14 had Klebsiella pneumoniae, lambert sensitive except to ampicillin and that was a few organism and yeastlike organisms. Sputum induction was not sent for cytology, but instead was sent for fungal smear and culture. PHYSICAL EXAMINATION Heart: Normal S1, S2. No murmurs. Lungs: Diminished breath sounds at the bases. Abdomen: Soft, nontender. No hepatosplenomegaly. Extremities: +1 ankle edema bilaterally. Back: No CVA tenderness. IMPRESSION 1. Respiratory failure with hypoxia. Concern for pneumocystic pneumonia, on IV Bactrim and prednisone by mouth. The patient is significantly hypoxic which is new for him. The patient has never had underlying lung disease or use for nebulizers. Will consult Dr. Cruz who has seen him on his previous admission; in case he worsens may benefit from bronchoscopy. 2. Klebsiella in the sputum most likely was colonization. The patient has been on broad-spectrum antibiotic on the previous admission; has currently finished 7 days of Zosyn and therefore this will be discontinued. 3. Hypertension with mild elevation of BNP. The patient has been on Lasix 40 mg twice a day with adequate diuresis. I do not think this is fluid overload at this point. PLAN: Consult pulmonary, Dr. Cruz was called. Discontinue IV Zosyn. Continue trimethoprim and prednisone.
[2018-10-21] VITALS (9 sets, daily range): BP systolic 101–139; BP diastolic 60–71; O2SAT 88–94
[2018-10-21] MEDS: SULFAMETHOXAZOLE IV SCH ×4 (00:02→17:23)
[2018-10-21] MEDS: TRIMETHOPRIM IV SCH ×4 (00:02→17:23)
[2018-10-21] MEDS: D5W IV SCH ×4 (00:02→17:23)
[2018-10-21] MEDS: IPRATROPIUM 0.5MG/ALBUTEROL 2.5MG INH SOL UD 3ML (DUONEB)(J7620) NEB SCH ×4 (01:05→20:22)
[2018-10-21 05:16] LABS: HEMATOCRIT 34.8 % (42.0-52.0); HEMOGLOBIN 11.1 g/dl (13.5-17.5); MEAN CORPUSCULAR HEMOGLOBIN 27.4 pg (27.0-33.0); MEAN CORPUSCULAR HGB CONC 31.9 g/dl (32.0-36.5); MEAN CORPUSCULAR VOLUME 85.9 fl (80.0-96.0); PLATELET COUNT, AUTOMATED 129 10^3/uL (150-450); RED BLOOD COUNT 4.05 10^6/uL (4.30-6.10); WHITE BLOOD COUNT 9.2 10^3/uL (4.0-10.0)
[2018-10-21 05:35] LABS: BLOOD UREA NITROGEN 17 MG/DL (7-18); CALCIUM LEVEL 8.3 MG/DL (8.8-10.2); CARBON DIOXIDE LEVEL 34 MEQ/L (21-32); CHLORIDE LEVEL 87 MEQ/L (98-107); CREATININE FOR GFR 0.94 MG/DL (0.70-1.30); GLOMERULAR FILTRATION RATE > 60.0 (>49); GLUCOSE, FASTING 88 MG/DL (70-100); MAGNESIUM LEVEL 2.3 MG/DL (1.8-2.4); POTASSIUM SERUM 4.8 MEQ/L (3.5-5.1); SODIUM LEVEL 131 MEQ/L (136-145)
[2018-10-21 05:38] LABS: ATYPICAL LYMPH 1 % (0-5); LYMPHOCYTES 1 % (16-52); METAMYELOCYTES 2 % (0-0); MONOCYTES 7 % (0-8); MYELOCYTES 1 % (0-0); NEUTROPHILS 82 % (35-75)
[2018-10-21 05:39] LABS: ANISOCYTOSIS 1+; PLATELET CLUMPS SMALL AMT; PLATELET ESTIMATE NORMAL (NORMAL)
[2018-10-21 05:40] LABS: TOXIC VACUOLATION 1+
[2018-10-21] MEDS: SLF 3 ML SYR IV SCH ×3 (05:57→20:11)
[2018-10-21] MEDS: ENOXAPARIN 40 MG/0.4 ML SYRINGE (J1650) SC SCH (09:22)
[2018-10-21] MEDS: FUROSEMIDE 40 MG TAB PO SCH ×2 (09:22→17:11)
[2018-10-21] MEDS: DRONEDARONE 400 MG TAB (MULTAQ) PO SCH ×2 (09:22→20:10)
[2018-10-21] MEDS: predniSONE 20 MG TAB PO SCH ×2 (09:22→20:10)
[2018-10-21] MEDS: OMEPRAZOLE 20 MG CAP PO SCH (09:22)
--- NOTE | 2018-10-21 10:45 | IPNPDOC ---
Subjective Date Seen The patient was seen on 10/21/18. Subjective Chief Complaint/HPI 02 sats drop into low 80s after standing for only 30 - 40 seconds Constitutional: Denies: Chills, Fever Pulmonary: Reports: Dyspnea; Denies: Cough Cardiovascular: Denies: Chest Pain, Palpitations Gastrointestinal: Denies: Nausea, Vomiting, Abdominal Pain, Diarrhea, Constipation Objective Physical Examination General Exam: Positive: Alert, Cooperative, No Acute Distress Chest Exam: Positive: Diminished (diffusely diminished with reduced air movement.), Other; Negative: Clear to auscultation, Rales, Rhonchi, Wheezing Heart Exam: Positive: Rate Normal, Regular Rhythm, Normal S1, Normal S2; Negative: Tachycardic, Irregular Rhythm Abdomen Exam: Positive: Normal bowel sounds, Soft; Negative: Tenderness Extremity Exam: Positive: Edema (2+ ankle edema BL) Neuro Exam: Positive: Normal Speech Psych Exam: Positive: Mood NL Assessment /Plan Problems (1) Acute respiratory failure with hypoxemia Status: Acute Response to Treatment: Stable, Improving Discussed With: Nurse, Patient Problem Specific Plan: Monitor Clinically, Repeat Labs Problem Text: D7 empiric Bactrim for PJP, s/p Zosyn x 6 days - stoppped by ID 10/20 Pulmonary consult pending due to severe hypoxemia with minimal exertion Unable to give sputum for Culture (No productive sputum) 10/19/18: s/p ID consult. Duonebs added q 6 hrs. DC solu-medrol. Start Prednisone 60 mg po bid. 10/18/18: repeat bl cxs and fungal smear remain pending. Patient continues with dyspnea. CT Chest competed and demonstrates improvement. see report below. 10/17/18 fungal smear/culture and DFA staining obtained (ordered 10/15!) 10/17 CT chest: The diffuse bilateral interstitial and alveolar infiltrates identified on 09/23/2018 have decreased. The bilateral pleural effusions have decreased. The extensive mediastinal lymph node enlargement identified on 05/19/2089, has resolved. 10/17/18: patient states he feels significantly better. Continues to require 5 LNC. HOLD on diuresing due to soft BP. HR remains stable. Bl cx and sputum cx pending. 10/16: LDH elevated above baseline elevation from lymphoma which can be seen c PJP. Sulfa/TMP started yesterday. Hypoxic with minimal exertion. Diuresis has diminished since change to po lasix. will repeat BNP, may need IV lasix again. 09/28/18 Fungitell >500-Ddx: PJP, Lise spp, Aspergillus less likely given 09/24 A flavus/fumigatus, niger Ab -/galacto Ag - (2) Acute on chronic diastolic (congestive) heart failure Status: Acute Response to Treatment: Stable, Improving Problem Specific Plan: Monitor Clinically Problem Text: 10/21 - Getting Lasix 40 BID with fair diuresis per I + Os BP stable 10/17/18: HOLD on diuresing due to soft BP. HR remains stable. 10/16: CXR looks a little wetter, BNP pending; may need increase laxix CXR in am, continue lasix for now. Last ECHO 09/18 with nl EF< Gr 1 diastolic dysfunction. Cont with Lasix IV, change diet to low sodium. Monitor I & Os. (3) Large B-cell lymphoma Status: Acute Problem Specific Plan: Monitor Clinically Problem Text: 10/16: may need to be rescheduled depending. Follows with [facility] Onc as outpt, scheduled for final chemo 10/21. (4) Gram-positive cocci in clusters Status: Resolved Response to Treatment: Stable Problem Text: 10/19/18: repeat bl. cx negative. 10/17 BCX2 P 10/13 BCX1/1 + for micrococcus. most likley contaminant. will repeat BCX (5) Pancytopenia due to chemotherapy Status: Resolved Problem Text: s/p Nulasta 10/14 (6) Paroxysmal atrial fibrillation Status: Chronic Response to Treatment: Stable Problem Text: rate controlled on Metoprolol and Multaq Plan/VTE VTE Prophylaxis Ordered?: Yes (Lovenox) VS, I&O, 24H, Fishbone Vital Signs/I&O Vital Signs Date Time Temp Pulse Resp B/P (MAP) Pulse Ox O2 Delivery O2 Flow Rate FiO2 10/21/18 08:48 8.0 10/21/18 07:48 97.2 71 20 108/62 (77) 92 10/20/18 12:00 50 10/19/18 13:41 Nasal Cannula I&O- Last 24 Hours up to 6 AM 10/21/18 05:59 Intake Total 1734.750 ml Output Total 2900 ml Balance -1165.250 ml Laboratory Data 24H LABS Laboratory Tests 2 10/21/18 04:43: Immature Granulocyte % (Auto) , White Blood Count 9.2, Red Blood Count 4.05L, Hemoglobin 11.1L, Hematocrit 34.8L, Mean Corpuscular Volume 85.9, Mean Corpuscular Hemoglobin 27.4, Mean Corpuscular Hemoglobin Concent 31.9L, Red Cell Distribution Width 17.7H, Platelet Count 129L, Lymphocytes # (Auto) , Nucleated Red Blood Cells % (auto) 0.0, Neutrophils 82H, Band Neutrophils 6, Lymphocytes (Manual) 1L, Monocytes (Manual) 7, Metamyelocytes 2H, Myelocytes 1H, Atypical Lymphocytes 1, Toxic Vacuolation 1+, Platelet Estimate NORMAL, Clumped Platelets SMALL AMT, Anisocytosis 1+, Anion Gap 10, Glomerular Filtration Rate > 60.0, Blood Urea Nitrogen 17, Creatinine 0.94, Sodium Level 131L, Potassium Level 4.8, Chloride Level 87L, Carbon Dioxide Level 34H, Calcium Level 8.3L, Magnesium Level 2.3 CBC/BMP Laboratory Tests 10/21/18 04:43 Red Blood Count 4.05 L, Mean Corpuscular Volume 85.9, Mean Corpuscular Hemoglobin 27.4, Mean Corpuscular Hemoglobin Concent 31.9 L, Red Cell Distribution Width 17.7 H, Lymphocytes # (Auto) , Calcium Level 8.3 L Microbiology Microbiology 10/17/18 Blood Culture - Preliminary, Resulted No Growth after 72 hours. All specime... 10/17/18 Blood Culture - Preliminary, Resulted No Growth after 72 hours. All specime... 10/13/18 Blood Culture - Final, Complete Micrococcus Luteus 10/17/18 Fungal Smear, Received Pending 10/17/18 Fungal Culture, Received Pending 10/14/18 Gram Stain - Final, Complete 10/14/18 Sputum Culture - Final, Complete Klebsiella Pneumoniae Yeast Like Organism JILL NOGUEIRA PA-C Oct 21, 2018 10:45
--- NOTE | 2018-10-21 14:01 | CR ---
DATE OF CONSULTATION: 10/21/2018 Pulmonary critical care team was asked by Dr. Yu, the infectious disease specialist, for consultation on Mr. Henrik Cabrera. HISTORY OF PRESENT ILLNESS: Mr. Cabrera is a 63-year-old male patient who was recently admitted with acute respiratory failure and hypoxia. He has been seen in the past by the pulmonary team when he was an inpatient last month in August. He is a 63-year-old male who has stage IV diffuse B-cell lymphoma and had been on chemotherapy until about September 21, 2018 when he first presented to the emergency department at [facility]. He was admitted and initially treated for congestive heart failure. Afterwards, he was seen by Dr. Cruz from pulmonary and a fungal workup was initiated. A beta 1,3 D glucan was more than 500. Unfortunately, those results were not available upon the patient's discharge. He was treated with antibiotics and steroids and discharged home on oral prednisone. I contacted his pharmacy and it appears the patient was discharged home on prednisone 40 mg for 4 days and then decrease to 30 mg daily until reevaluated. Unfortunately, the patient never was able to be reevaluated at the pulmonary office as he presented back to the emergency department on 10/14/2018 with dyspnea along with fevers and chills. He was admitted at that time and placed initially on oral prednisone for a couple days and then increased to IV Solu-Medrol from October 16 to October 19. On October 19 he was started back up on oral prednisone and the IV Solu-Medrol was discontinued. He does have an abnormal chest CT that does show alveolar and interstitial infiltrates as well as a bilateral pleural effusion that is decreased in size compared to prior chest CT. He had abnormal chest CT during his last hospitalization and there was concern for pneumonitis, possibly drug induced as a result of the patient's chemotherapy with R-CHOP, particularly the rituximab component. During this new admission, as noted the patient was started on the steroids. He was also started on IV Zosyn and IV Bactrim. He was seen by Dr. Yu of from infectious diseases. As noted above, he did have a recent beta 1,3 D glucan which was positive, which is consistent with fungal infection. Dr. Yu was concerned about pneumocystis pneumonia and therefore, the patient was started on IV Bactrim. Her plan was to continue the IV Bactrim and the Zosyn was discontinued. The pulmonary team was consulted for the patient is continuing hypoxia as well as his abnormal chest CT. The patient has had no further fevers or chills. He still complains of dyspnea, especially with exertion. He describes a dry cough and states he has been unable to produce any significant sputum. He denies any chest pain. States that he does have some weakness and generalized fatigue. He denies any orthopnea or paroxysmal nocturnal dyspnea (PND). REVIEW OF SYSTEMS: The patient denies any current fevers or chills. He states he has had a slight headache intermittently, but no current headaches. He denies any double or blurry vision. The patient states his appetite has been decreased and he does note a several pound weight loss in the last week since he has been in the hospital. HEENT: Patient denies any sore throat or epistaxis. CARDIAC: The patient denies chest pain or palpitations. He does have lower extremity edema and is being diuresed and notes a significant decrease in lower extremity edema since diuretics have been increased. PULMONARY: The patient notes shortness of breath and hypoxia as noted above. Has a dry cough, very little sputum production. Denies hemoptysis. ABDOMEN: The patient denies abdominal pain. Denies nausea, vomiting, diarrhea or constipation. Denies blood in stool. GENITOURINARY (): Patient denies any symptoms. Denies dysuria, hematuria. NEURO: Patient does note some bilateral lower extremity weakness, particularly on standing along with generalized fatigue. Denies any giving way of the lower extremities. Denies any upper or lower extremity paresthesias. Denies any seizures. ENDOCRINE: Patient does have a history of diabetes, which is diet controlled. Denies any thyroid disease history. MUSCULOSKELETAL: The patient denies any joint pain or swelling. PAST MEDICAL HISTORY: Significant for stage IV diffuse B-cell lymphoma. History of treatment with R-CHOP. Paroxysmal atrial fibrillation. Hypotension. Heart failure. Diabetes mellitus type 2. History of pleural effusions, status post thoracentesis in [place] and in [place]. History of inguinal node biopsy. History of kidney stone lithotripsy. SOCIAL HISTORY: The patient states he smoked about two packs a day for 6 years in the late 70s and early 80s. He smoked cigars and pipes from 2005 to 2017, but quit to all tobacco products in 2017. The patient notes rare alcohol use. He denies any illicit drug use. The patient lives alone and is not . 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 FAMILY HISTORY: The patient states his mother is and had emphysema. The patient states his father is , but he did not know his health history. PHYSICAL EXAMINATION: VITALS: Temperature is 97.5, pulse 91, blood pressure is 126/64, respiratory rate 20, pulse ox 97% on 8 liters. GENERAL: The patient is sitting up in a chair. He talks in complete sentences. He is alert and oriented times three. HEENT: Head is normocephalic, atraumatic. Moist mucous membranes. NECK: Neck is supple. No cervical lymphadenopathy. Trachea is midline. No cervical lymphadenopathy. No carotid bruits noted. No obvious jugular venous distention (JVD). HEART: Regular rate and rhythm. PULMONARY: Bilateral bibasilar rales and fine crackles. No wheezes or rhonchi appreciated. Some increased dullness to percussion at the bilateral bases. No accessory muscle use. ABDOMEN: Positive bowel sounds, soft, nontender. No rebound, no guarding. No obvious splenomegaly. EXTREMITIES: The patient does have 1-2+ pitting edema bilaterally. NEURO: Nonfocal grossly. SKIN: Warm and dry. LABORATORIES: WBC 9.2, hemoglobin 11.1, hematocrit 34.8, platelets 129. Sodium is 131, potassium 4.8, chloride is 87, carbon dioxide 34, BUN is 17, creatinine 0.94, glucose 88, calcium is 8.3, magnesium is 2.3. Chest CT done on 10/17/2018 alveolar interstitial infiltrates. There are bilateral pleural effusions that have decreased in size when compared to prior chest CT from 09/23/2018. ASSESSMENT/PLAN: 1. Hypoxia/abnormal chest CT. The etiology of the patient's certainly could be due to fungal infection. The patient is currently being treated with IV Bactrim for possible PCP. Drug pneumonitis from history of R-CHOP therapy is a little less likely given the fact the patient has been on steroids since his last admission. Will continue to monitor closely. He did grow Klebsiella on sputum culture but was treated for 6 days with Zosyn. Certainly heart failure is also a consideration. The patient is currently being diuresed with Lasix and does note decreasing lower extremity edema. Will continue to monitor closely. If he is not improving then certainly consideration for bronchoscopy will be considered, however with the patient's hypoxia that could prove to be risky. Plan will be to see how the patient does over the weekend and reevaluate each day for clinical improvement. Attempts at sputum cytology will be continued. Thank you for this consult. Will continue to follow along with this patient. PATT
[2018-10-21] MEDS: METOPROLOL SUCC *XL* 12.5MG PER 1/2 TAB (TopROL *XL*) PO SCH (20:10)
[2018-10-22] VITALS (48 sets, daily range): BP systolic 109–129; BP diastolic 60–76; O2SAT 61–99
[2018-10-22] MEDS: SULFAMETHOXAZOLE IV SCH ×4 (00:10→18:04)
[2018-10-22] MEDS: D5W IV SCH ×4 (00:10→18:04)
[2018-10-22] MEDS: TRIMETHOPRIM IV SCH ×4 (00:10→18:04)
[2018-10-22] MEDS: IPRATROPIUM 0.5MG/ALBUTEROL 2.5MG INH SOL UD 3ML (DUONEB)(J7620) NEB SCH ×4 (01:14→20:39)
[2018-10-22 05:49] LABS: HEMATOCRIT 34.6 % (42.0-52.0); HEMOGLOBIN 10.9 g/dl (13.5-17.5); MEAN CORPUSCULAR HEMOGLOBIN 27.1 pg (27.0-33.0); MEAN CORPUSCULAR HGB CONC 31.5 g/dl (32.0-36.5); MEAN CORPUSCULAR VOLUME 86.1 fl (80.0-96.0); PLATELET COUNT, AUTOMATED 103 10^3/uL (150-450); RED BLOOD COUNT 4.02 10^6/uL (4.30-6.10); WHITE BLOOD COUNT 11.1 10^3/uL (4.0-10.0)
[2018-10-22] MEDS: SLF 3 ML SYR IV SCH ×3 (06:11→22:21)
[2018-10-22 06:12] LABS: BLOOD UREA NITROGEN 19 MG/DL (7-18); CALCIUM LEVEL 8.3 MG/DL (8.8-10.2); CARBON DIOXIDE LEVEL 36 MEQ/L (21-32); CHLORIDE LEVEL 88 MEQ/L (98-107); CREATININE FOR GFR 0.84 MG/DL (0.70-1.30); GLOMERULAR FILTRATION RATE > 60.0 (>49); GLUCOSE, FASTING 93 MG/DL (70-100); MAGNESIUM LEVEL 2.4 MG/DL (1.8-2.4); POTASSIUM SERUM 4.9 MEQ/L (3.5-5.1); SODIUM LEVEL 131 MEQ/L (136-145)
[2018-10-22 06:33] LABS: ANISOCYTOSIS 1+; METAMYELOCYTES 2 % (0-0); MONOCYTES 3 % (0-8); MYELOCYTES 2 % (0-0); NEUTROPHILS 93 % (35-75); PLATELET ESTIMATE DECREASED (NORMAL)
[2018-10-22 06:34] LABS: TOXIC GRANULATION 1+
[2018-10-22] MEDS: predniSONE 20 MG TAB PO SCH ×2 (08:23→20:12)
[2018-10-22] MEDS: FUROSEMIDE 40 MG TAB PO SCH ×2 (08:24→18:04)
[2018-10-22] MEDS: DRONEDARONE 400 MG TAB (MULTAQ) PO SCH ×2 (08:24→20:12)
[2018-10-22] MEDS: OMEPRAZOLE 20 MG CAP PO SCH (08:24)
[2018-10-22] MEDS: ENOXAPARIN 40 MG/0.4 ML SYRINGE (J1650) SC SCH (08:25)
--- NOTE | 2018-10-22 10:07 | IPN ---
DATE: 10/22/2018 This is a pulmonary daily progress note. SUBJECTIVE: The patient states he feels marginally better. Still desaturates with any movement. Unfortunately, he is being titrated to his active oxygen saturation and not his resting saturation. His oxygen saturation 97% on 8 liters this morning. He states without the 8 liters flow, though he feels very short of breath. We did discuss if he does not have significant clinical improvement, further diagnostic procedures starting Wednesday and Wednesday. I stated I would repeat chest CT on Wednesday, and we did discuss the possibility of bronchoscopy; however, he would be at high risk for requiring ventilation afterwards, high risk for pneumothorax, especially if this is PCP. However, the alternative is, we do not have any further information to help treat his ongoing disease. He has had no fever, but he did have fever and shaking chills prior to coming in the hospital. He has no productive cough. He states even with inducing sputum, he states he gets very little up. He has had no hemoptysis. He continues to have lower extremity edema, less than and on admission. PHYSICAL EXAM: Temperature is 96.5, pulse is 70, respiratory rate is 18, blood pressure is 119/62, mean arterial pressure of 81, oxygen saturation is 97% on 8 liters. General: Awake, alert, and oriented. Affect and mood are appropriate. Does appear dyspneic with speech, but is able to complete full sentences. HEENT: Sclerae clear and anicteric. Pupils equal, react to light. Mucous membranes are moist without lesion. Tongue is midline. Neck: Supple. No tracheal deviation or mass. Lymph: No cervical, supraclavicular, or axillary adenopathy. Cardiac: Distant S1, S2 without audible murmur, rub, or gallop. Point of maximum impulse (PMI) is difficult to palpate. Pulmonary: There are bilateral rales all the way up to three-quarters of his lung escobar. No wheeze or rhonchi. There is no dullness to percussion, except very minimally at the bases. No accessory muscle use. Abdomen: Soft, nontender, nondistended, nondistended. No hepatosplenomegaly or masses. Extremities: Patient does have pitting edema. No cyanosis or clubbing. Neuro: No unilateral weakness. Skin: No rashes, jaundice, or bruising. Some minimal venous stasis changes in lower extremities. Laboratory evaluation shows hyponatremia. Sodium 131, potassium 4.9, chloride of 88, bicarbonate of 36, BUN of 19, creatinine of 0.84. His arterial blood gases 7.41, pCO2 of 40, pAO2 of 156 on admission. White blood cell count is 11.1, hemoglobin is 10.9, platelet count is 103 with 93% neutrophilia. No imaging for today. Severe hypoxia, unclear etiology. Differential includes PCP infection, fungal infection, inflammatory pneumonitis, idiopathic pneumonia, pulmonary edema, and less likely, bacterial infection despite growing Klebsiella. He was already treated with an adequate treatment with Zosyn for Klebsiella. He is on Bactrim for presumed PCP due to his history of steroid use. When taking his history into account, it is unlikely that it is rituximab induced as the patient has been on steroids since the time of discharge from the hospital. Although he had clinical improvement while in the hospital last time, it does not appear that staying on steroids maintained that clinical improvement. There is also a possibility that these interstitial findings is recurrence of lymphoma. I believe efforts towards diuresis should continue. He understands that he would be very high risk for bronchoscopy. However, that risk may be warranted if he has no clinical improvement and we cannot narrow his diagnosis by noninvasive testing. Therefore, plan is to repeat chest x-ray tomorrow to see if there is any radiographic improvement. If no significant clinical improvement by Wednesday, will obtain chest CT and plan for possible bronchoscopy on Wednesday. PATT
[2018-10-22 10:11] LABS: LDH LACTATE DEHYDROGENASE 709 U/L (87-241)
--- NOTE | 2018-10-22 17:01 | IPNPDOC ---
Subjective Date Seen The patient was seen on 10/22/18. Subjective Chief Complaint/HPI Patient complains of persistent dyspnea; states that he is relatively comfortable on 8L NC, but that he gets extremely short of breath with even mi nimal exertion. He told me that he feels about the same as yesterday. States that despite efforts to get a sputum sample, he is unable to bring anything up. We discussed his code status, and he voiced a desire to be full code. He isn't comfortable with the idea of being intubated, but feels that it would be better than . Constitutional: Denies: Chills, Fever Pulmonary: Reports: Dyspnea, Cough Cardiovascular: Denies: Chest Pain Gastrointestinal: Denies: Nausea, Vomiting, Diarrhea, Constipation Psych: Reports: Mood Normal Objective Physical Examination General Exam: Positive: Alert, Cooperative, No Acute Distress Chest Exam: Positive: Diminished (diffusely diminished with reduced air movement.), Other; Negative: Clear to auscultation, Rales, Rhonchi, Wheezing Heart Exam: Positive: Rate Normal, Regular Rhythm, Normal S1, Normal S2; Negative: Tachycardic, Irregular Rhythm Abdomen Exam: Positive: Normal bowel sounds, Soft; Negative: Tenderness Extremity Exam: Positive: Edema (2+ ankle edema BL) Neuro Exam: Positive: Normal Speech Psych Exam: Positive: Mood NL, Anxiety (mildly) Assessment /Plan Problems (1) Acute respiratory failure with hypoxemia Status: Acute Response to Treatment: Stable, Improving Discussed With: Nurse, Patient Problem Specific Plan: Monitor Clinically, Repeat Labs Problem Text: 10/21 -- patient remains on Bactrim. If not improved by Wednesday, which is looking likely, plan bronchoscopy. Oxygen demands remain high, and patient is desatting with minimal exertion. Patient voices desire for full code status. D7 empiric Bactrim for PJP, s/p Zosyn x 6 days - stoppped by ID 10/20 Pulmonary consult pending due to severe hypoxemia with minimal exertion Unable to give sputum for Culture (No productive sputum) 10/19/18: s/p ID consult. Duonebs added q 6 hrs. DC solu-medrol. Start Prednisone 60 mg po bid. 10/18/18: repeat bl cxs and fungal smear remain pending. Patient continues with dyspnea. CT Chest competed and demonstrates improvement. see report below. 10/17/18 fungal smear/culture and DFA staining obtained (ordered 10/15!) 10/17 CT chest: The diffuse bilateral interstitial and alveolar infiltrates identified on 09/23/2018 have decreased. The bilateral pleural effusions have decreased. The extensive mediastinal lymph node enlargement identified on 05/19/2089, has resolved. 10/17/18: patient states he feels significantly better. Continues to require 5 LNC. HOLD on diuresing due to soft BP. HR remains stable. Bl cx and sputum cx pending. 10/16: LDH elevated above baseline elevation from lymphoma which can be seen c PJP. Sulfa/TMP started yesterday. Hypoxic with minimal exertion. Diuresis has diminished since change to po lasix. will repeat BNP, may need IV lasix again. 09/28/18 Fungitell >500-Ddx: PJP, Lise spp, Aspergillus less likely given 09/24 A flavus/fumigatus, niger Ab -/galacto Ag - (2) Acute on chronic diastolic (congestive) heart failure Status: Acute Response to Treatment: Stable, Improving Problem Specific Plan: Monitor Clinically Problem Text: 10/22 -- I&Os show patient consistently net negative. 10/21 - Getting Lasix 40 BID with fair diuresis per I + Os BP stable 10/17/18: HOLD on diuresing due to soft BP. HR remains stable. 10/16: CXR looks a little wetter, BNP pending; may need increase laxix CXR in am, continue lasix for now. Last ECHO 09/18 with nl EF< Gr 1 diastolic dysfunction. Cont with Lasix IV, change diet to low sodium. Monitor I & Os. (3) Large B-cell lymphoma Status: Acute Problem Specific Plan: Monitor Clinically Problem Text: 10/16: may need to be rescheduled depending. Follows with [facility] Onc as outpt, scheduled for final chemo 10/21. (4) Gram-positive cocci in clusters Status: Resolved Response to Treatment: Stable Problem Text: 10/19/18: repeat bl. cx negative. 10/17 BCX2 P 10/13 BCX1/1 + for micrococcus. most likley contaminant. will repeat BCX (5) Pancytopenia due to chemotherapy Status: Resolved Problem Text: s/p Nulasta 10/14 (6) Paroxysmal atrial fibrillation Status: Chronic Response to Treatment: Stable Problem Text: rate controlled on Metoprolol and Multaq (7) Full code status Plan/VTE VTE Prophylaxis Ordered?: Yes (Lovenox) VS, I&O, 24H, Fishbone Vital Signs/I&O Vital Signs Date Time Temp Pulse Resp B/P (MAP) Pulse Ox O2 Delivery O2 Flow Rate FiO2 10/22/18 16:00 96.0 78 18 115/61 (79) 94 5.0 10/22/18 16:00 Nasal Cannula 10/20/18 12:00 50 I&O- Last 24 Hours up to 6 AM 10/22/18 06:00 Intake Total 1593 ml Output Total 1700 ml Balance -107 ml Laboratory Data 24H LABS Laboratory Tests 2 10/22/18 05:23: Immature Granulocyte % (Auto) , White Blood Count 11.1H, Red Blood Count 4.02L, Hemoglobin 10.9L, Hematocrit 34.6L, Mean Corpuscular Volume 86.1, Mean Corpuscular Hemoglobin 27.1, Mean Corpuscular Hemoglobin Concent 31.5L, Red Cell Distribution Width 17.6H, Platelet Count 103L, Lymphocytes # (Auto) , Nucleated Red Blood Cells % (auto) 0.0, Neutrophils 93H, Monocytes (Manual) 3, Metamyelocytes 2H, Myelocytes 2H, Toxic Granulation 1+, Platelet Estimate DECREASED, Anisocytosis 1+, Anion Gap 7L, Glomerular Filtration Rate > 60.0, Blood Urea Nitrogen 19H, Creatinine 0.84, Sodium Level 131L, Potassium Level 4.9, Chloride Level 88L, Carbon Dioxide Level 36H, Calcium Level 8.3L, Magnesium Level 2.4, Lactate Dehydrogenase 709H CBC/BMP Laboratory Tests 10/22/18 05:23 Red Blood Count 4.02 L, Mean Corpuscular Volume 86.1, Mean Corpuscular Hemoglobin 27.1, Mean Corpuscular Hemoglobin Concent 31.5 L, Red Cell Distribution Width 17.6 H, Lymphocytes # (Auto) , Calcium Level 8.3 L Microbiology Microbiology 10/17/18 Blood Culture - Final, Complete NO GROWTH AFTER 5 DAYS 10/17/18 Blood Culture - Final, Complete NO GROWTH AFTER 5 DAYS 10/13/18 Blood Culture - Final, Complete Micrococcus Luteus 10/17/18 Fungal Smear, Received Pending 10/17/18 Fungal Culture, Received Pending 10/14/18 Gram Stain - Final, Complete 10/14/18 Sputum Culture - Final, Complete Klebsiella Pneumoniae Yeast Like Organism LAWRENCE CARDENAS DO Oct 22, 2018 17:01
[2018-10-22] MEDS: METOPROLOL SUCC *XL* 12.5MG PER 1/2 TAB (TopROL *XL*) PO SCH (20:14)
[2018-10-23] VITALS (25 sets, daily range): BP systolic 118–128; BP diastolic 57–75; O2SAT 85–99
[2018-10-23] MEDS: TRIMETHOPRIM IV SCH ×5 (00:27→23:52)
[2018-10-23] MEDS: SULFAMETHOXAZOLE IV SCH ×5 (00:27→23:52)
[2018-10-23] MEDS: D5W IV SCH ×5 (00:27→23:52)
[2018-10-23] MEDS: IPRATROPIUM 0.5MG/ALBUTEROL 2.5MG INH SOL UD 3ML (DUONEB)(J7620) NEB SCH ×4 (01:45→20:05)
[2018-10-23] MEDS: SLF 3 ML SYR IV SCH ×3 (05:46→20:46)
[2018-10-23 05:48] LABS: HEMATOCRIT 34.3 % (42.0-52.0); HEMOGLOBIN 10.8 g/dl (13.5-17.5); MEAN CORPUSCULAR HEMOGLOBIN 26.7 pg (27.0-33.0); MEAN CORPUSCULAR HGB CONC 31.5 g/dl (32.0-36.5); MEAN CORPUSCULAR VOLUME 84.7 fl (80.0-96.0); PLATELET COUNT, AUTOMATED 107 10^3/uL (150-450); RED BLOOD COUNT 4.05 10^6/uL (4.30-6.10); WHITE BLOOD COUNT 11.6 10^3/uL (4.0-10.0)
[2018-10-23 06:11] LABS: BLOOD UREA NITROGEN 17 MG/DL (7-18); CALCIUM LEVEL 8.6 MG/DL (8.8-10.2); CARBON DIOXIDE LEVEL 34 MEQ/L (21-32); CHLORIDE LEVEL 89 MEQ/L (98-107); CREATININE FOR GFR 0.74 MG/DL (0.70-1.30); GLOMERULAR FILTRATION RATE > 60.0 (>49); GLUCOSE, FASTING 101 MG/DL (70-100); MAGNESIUM LEVEL 2.4 MG/DL (1.8-2.4); POTASSIUM SERUM 5.1 MEQ/L (3.5-5.1); SODIUM LEVEL 130 MEQ/L (136-145)
[2018-10-23 06:19] LABS: LYMPHOCYTES 5 % (16-52); MONOCYTES 1 % (0-8); NEUTROPHILS 94 % (35-75)
[2018-10-23 06:20] LABS: PLATELET ESTIMATE NORMAL (NORMAL)
--- NOTE | 2018-10-23 08:38 | REP ---
PA and lateral chest: Comparisons are 10/16/[address] of 10/17/2018. Diffuse bilateral infiltrates are again identified having a somewhat nodular appearance. This is unchanged. There are bilateral pleural effusions, unchanged. Cardiac size is normal. The gwen, mediastinum, skeletal structures are unchanged. There is a right IJ [id number] central venous catheter with the tip in the superior vena cava, unchanged. Impression: No significant interval change. Electronically Signed by Cisco Finch MD 10/23/2018 08:29 A
[2018-10-23] MEDS: predniSONE 20 MG TAB PO SCH ×2 (09:42→20:45)
[2018-10-23] MEDS: ENOXAPARIN 40 MG/0.4 ML SYRINGE (J1650) SC SCH (09:42)
[2018-10-23] MEDS: FUROSEMIDE 40 MG TAB PO SCH ×2 (09:42→18:11)
[2018-10-23] MEDS: DRONEDARONE 400 MG TAB (MULTAQ) PO SCH ×2 (09:43→20:46)
[2018-10-23] MEDS: OMEPRAZOLE 20 MG CAP PO SCH (09:43)
--- NOTE | 2018-10-23 10:54 | IPN ---
DATE OF SERVICE: 10/23/2018 Mr. Cabrera is a very pleasant 63-year-old male. He is requiring less oxygen today and currently 95% on 5 liters. He is quite concerned as he does feel weak. He has had quite a bit of a diuresis. Chest x-ray this morning was reviewed and outlined below. He feels his shortness of breath is the same. While talking to him, we were able to get some productive mucus, which is the first he has been able to obtain for cytology. He feels depressed. He states it is the first time he feels depressed. He does not want to start any medication because of it. He just feels "down." He has no chest discomfort. He has had no hemoptysis. He continues to have lower extremity edema despite significant attempts towards diuresis. PHYSICAL EXAM: Temperature is 96.5, pulse is 82, respiratory rate is 20, blood pressure is 123/57 with a mean arterial pressure of 79, oxygen saturations running 95-98% on 5 liters nasal cannula. He had net negative 480 yesterday, net negative 511 the day before, 795 the day before that, 1228 the day before that. General: Awake, alert, conversant, does appear slightly down but has good speech that is not tangential. He has good eye contact. HEENT: Sclerae clear and anicteric. Pupils equal and react to light. Mucous membranes are moist without lesions. Tongue is midline. Neck is supple. No tracheal deviation or mass. There is elevated JVP. Pulmonary: Diffuse rales, but have significantly improved since Wednesday. Cardiac: Regular S1, S2, without audible murmur, rub, or gallop. Point of maximum impulse (PMI) is difficult to palpate. Abdomen: Soft, nontender, nondistended. No hepatosplenomegaly. No masses or hernia. Extremities: There is significant pitting edema bilaterally, left greater than right. There are venous stasis changes of the lower extremities. No cyanosis, clubbing. Musculoskeletal: He does have musculoskeletal weakness. 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 He is able to have equal 5/5 flexion and extension of the arms. He is able to move his lower extremities symmetrically without abnormality. There is no evidence of tremor. Laboratory evaluation shows a white blood cell count of 11.6, hemoglobin 10.8, platelet count of 107 with 94% neutrophilia. I added on an LDH to yesterday's labs, which was elevated at 709. Sodium is 130, potassium is 5.1, chloride 89, bicarbonate of 34, BUN of 17, creatinine of 0.71 with a glucose of 101. So far, no sputums have been obtainable for cytology, except for when I was actually seeing the patient. Chest x-ray shows maybe some minor increase in right lower lobe infiltrate versus not as good chest expansion, but there may be some improvement in the upper lobes, although this may be simply increased penetration causing it to appear less dense. IMPRESSION: 1. Severe hypoxia with pulmonary infiltrates. Differential includes pulmonary edema versus fungal infection. Chest CT most consistent with nonpulmonary edema. Leading differential, however, remains PCP, which he is been treated for. LDH is high. He is hyponatremic, which can be seen in PCP infection. He had been on chronic steroids. Less likely is drug-induced pneumonitis. He has not had been having any hemoptysis, therefore, I do not believe this is hemorrhage, and it does not appear to be dependent. Pulmonary edema remains in the differential but, again, the chest CT is not classic for this. Because of persistent hypoxia and slow clinical improvement and the diagnosis still being in question, repeat CT scan will be performed tomorrow. If there is not significant improvement, it may be worth the risk of going through bronchoscopy for better diagnosis. I have discussed this with the patient. I am hopeful that now that he has had some improvement in his oxygen level and physical exam and possibly some chest x-ray improvement, that he is on the road to recovery. I have explained to him it can take quite a long time for one to recover from a PCP infection if this, in fact, is what it is. We were able to obtain sputum for cytology today. Hopefully, this will be an adequate enough sample. 2. Edema. He continues to diurese, still has lower extremity edema. Echocardiogram from prior admission was not remarkable, although he was on potentially cardiotoxic chemotherapy. I will obtain albumin in tomorrow labs, as I suspect he is likely malnourished, and hypoalbuminemia may be the cause of his continued edema. I have, therefore, added Ensure for protein supplementation to his diet today. His weakness may be from prednisone also. MTDD
[2018-10-23] MEDS: METOPROLOL SUCC *XL* 12.5MG PER 1/2 TAB (TopROL *XL*) PO SCH (20:46)
--- NOTE | 2018-10-23 21:43 | IPNPDOC ---
Subjective Date Seen The patient was seen on 10/23/18. Subjective Chief Complaint/HPI Today he is on less supplemental oxygen, complains of malaise/feeling weak. Spirits lower than yesterday. He is pleased that he was able to provide the first sputum sample of this admission. Plans chest CT tomorrow, to help us decide if he needs bronchoscopy. Constitutional: Reports: Malaise, Weakness; Denies: Chills, Fever Pulmonary: Reports: Dyspnea; Denies: Cough Cardiovascular: Denies: Chest Pain Gastrointestinal: Denies: Nausea, Vomiting, Abdominal Pain, Diarrhea, Constipation Objective Physical Examination General Exam: Positive: Alert, Cooperative, No Acute Distress Chest Exam: Positive: Diminished (diffusely diminished with reduced air movement.), Other; Negative: Clear to auscultation, Rales, Rhonchi, Wheezing Heart Exam: Positive: Rate Normal, Regular Rhythm, Normal S1, Normal S2; Negative: Tachycardic, Irregular Rhythm Abdomen Exam: Positive: Normal bowel sounds, Soft; Negative: Tenderness Extremity Exam: Positive: Edema (2+ ankle edema BL) Neuro Exam: Positive: Normal Speech Psych Exam: Positive: Mood NL, Anxiety (mildly) Assessment /Plan Problems (1) Acute respiratory failure with hypoxemia Status: Acute Response to Treatment: Stable, Improving Discussed With: Nurse, Patient Problem Specific Plan: Monitor Clinically, Repeat Labs Problem Text: 10/23 -- supplemental O2 has been weaned, but demands remain significant. Plan CT tomorrow and possible bronch. He has told me that he is not enthusiastic about potentially being on a ventilator, but accepts that risk. 10/21 -- patient remains on Bactrim. If not improved by Wednesday, which is looking likely, plan bronchoscopy. Oxygen demands remain high, and patient is desatting with minimal exertion. Patient voices desire for full code status. D7 empiric Bactrim for PJP, s/p Zosyn x 6 days - stoppped by ID 10/20 Pulmonary consult pending due to severe hypoxemia with minimal exertion Unable to give sputum for Culture (No productive sputum) 10/19/18: s/p ID consult. Duonebs added q 6 hrs. DC solu-medrol. Start Prednisone 60 mg po bid. 10/18/18: repeat bl cxs and fungal smear remain pending. Patient continues with dyspnea. CT Chest competed and demonstrates improvement. see report below. 10/17/18 fungal smear/culture and DFA staining obtained (ordered 10/15!) 10/17 CT chest: The diffuse bilateral interstitial and alveolar infiltrates identified on 09/23/2018 have decreased. The bilateral pleural effusions have decreased. The extensive mediastinal lymph node enlargement identified on 05/19/2089, has resolved. 10/17/18: patient states he feels significantly better. Continues to require 5 LNC. HOLD on diuresing due to soft BP. HR remains stable. Bl cx and sputum cx pending. 10/16: LDH elevated above baseline elevation from lymphoma which can be seen c PJP. Sulfa/TMP started yesterday. Hypoxic with minimal exertion. Diuresis has diminished since change to po lasix. will repeat BNP, may need IV lasix again. 09/28/18 Fungitell >500-Ddx: PJP, Lise spp, Aspergillus less likely given 09/24 A flavus/fumigatus, niger Ab -/galacto Ag - (2) Acute on chronic diastolic (congestive) heart failure Status: Acute Response to Treatment: Stable, Improving Problem Specific Plan: Monitor Clinically Problem Text: 10/23 -- albumin and pro-BNP ordered for tomorrow; renal function has remained stable, though there is some concern that his malaise today may indicate overdiuresis. 10/22 -- I&Os show patient consistently net negative. 10/21 - Getting Lasix 40 BID with fair diuresis per I + Os BP stable 10/17/18: HOLD on diuresing due to soft BP. HR remains stable. 10/16: CXR looks a little wetter, BNP pending; may need increase laxix CXR in am, continue lasix for now. Last ECHO 09/18 with nl EF< Gr 1 diastolic dysfunction. Cont with Lasix IV, change diet to low sodium. Monitor I & Os. (3) Large B-cell lymphoma Status: Acute Problem Specific Plan: Monitor Clinically Problem Text: 10/16: may need to be rescheduled depending. Follows with [facility] Onc as outpt, scheduled for final chemo 10/21. (4) Gram-positive cocci in clusters Status: Resolved Response to Treatment: Stable Problem Text: 10/19/18: repeat bl. cx negative. 10/17 BCX2 P 10/13 BCX1/1 + for micrococcus. most likley contaminant. will repeat BCX (5) Pancytopenia due to chemotherapy Status: Resolved Problem Text: s/p Nulasta 10/14 (6) Paroxysmal atrial fibrillation Status: Chronic Response to Treatment: Stable Problem Text: rate controlled on Metoprolol and Multaq (7) Full code status Plan/VTE VTE Prophylaxis Ordered?: Yes (Lovenox) VS, I&O, 24H, Fishbone Vital Signs/I&O Vital Signs Date Time Temp Pulse Resp B/P (MAP) Pulse Ox O2 Delivery O2 Flow Rate FiO2 10/23/18 21:00 85 Nasal Cannula 5.0 10/23/18 20:46 82 128/65 10/23/18 20:00 97.0 20 10/20/18 12:00 50 I&O- Last 24 Hours up to 6 AM 10/23/18 06:00 Intake Total 1617.500 ml Output Total 1800 ml Balance -182.500 ml Laboratory Data 24H LABS Laboratory Tests 2 10/23/18 05:24: Immature Granulocyte % (Auto) , White Blood Count 11.6H, Red Blood Count 4.05L, Hemoglobin 10.8L, Hematocrit 34.3L, Mean Corpuscular Volume 84.7, Mean Corpuscular Hemoglobin 26.7L, Mean Corpuscular Hemoglobin Concent 31.5L, Red Cell Distribution Width 17.6H, Platelet Count 107L, Lymphocytes # (Auto) , Nucleated Red Blood Cells % (auto) 0.0, Neutrophils 94H, Lymphocytes (Manual) 5L, Monocytes (Manual) 1, Platelet Estimate NORMAL, Red Blood Cell Morphology NORMAL, Anion Gap 7L, Glomerular Filtration Rate > 60.0, Blood Urea Nitrogen 17, Creatinine 0.74, Sodium Level 130L, Potassium Level 5.1, Chloride Level 89L, Carbon Dioxide Level 34H, Calcium Level 8.6L, Magnesium Level 2.4 CBC/BMP Laboratory Tests 10/23/18 05:24 Red Blood Count 4.05 L, Mean Corpuscular Volume 84.7, Mean Corpuscular Hemoglobin 26.7 L, Mean Corpuscular Hemoglobin Concent 31.5 L, Red Cell Distribu tion Width 17.6 H, Lymphocytes # (Auto) , Calcium Level 8.6 L Microbiology Microbiology 10/17/18 Blood Culture - Final, Complete NO GROWTH AFTER 5 DAYS 10/17/18 Blood Culture - Final, Complete NO GROWTH AFTER 5 DAYS 10/13/18 Blood Culture - Final, Complete Micrococcus Luteus 10/17/18 Fungal Smear, Received Pending 10/17/18 Fungal Culture, Received Pending 10/14/18 Gram Stain - Final, Complete 10/14/18 Sputum Culture - Final, Complete Klebsiella Pneumoniae Yeast Like Organism LAWRENCE CARDENAS DO Oct 23, 2018 21:43
[2018-10-24] VITALS (26 sets, daily range): BP systolic 108–133; BP diastolic 60–70; O2SAT 80–99
[2018-10-24] MEDS: IPRATROPIUM 0.5MG/ALBUTEROL 2.5MG INH SOL UD 3ML (DUONEB)(J7620) NEB SCH ×4 (02:09→20:46)
[2018-10-24 05:44] LABS: HEMATOCRIT 33.2 % (42.0-52.0); HEMOGLOBIN 10.5 g/dl (13.5-17.5); MEAN CORPUSCULAR HGB CONC 31.6 g/dl (32.0-36.5); MEAN CORPUSCULAR VOLUME 85.3 fl (80.0-96.0); RED BLOOD COUNT 3.89 10^6/uL (4.30-6.10); WHITE BLOOD COUNT 10.1 10^3/uL (4.0-10.0)
[2018-10-24] MEDS: TRIMETHOPRIM IV SCH ×3 (06:05→18:48)
[2018-10-24] MEDS: SLF 3 ML SYR IV SCH ×3 (06:05→22:49)
[2018-10-24] MEDS: SULFAMETHOXAZOLE IV SCH ×3 (06:05→18:48)
[2018-10-24] MEDS: D5W IV SCH ×3 (06:05→18:48)
[2018-10-24 06:14] LABS: PLATELET COUNT, AUTOMATED 92 10^3/uL (150-450)
[2018-10-24 06:17] LABS: METAMYELOCYTES 4 % (0-0); NEUTROPHILS 96 % (35-75)
[2018-10-24 06:18] LABS: PLATELET ESTIMATE DECREASED (NORMAL)
[2018-10-24 06:19] LABS: ALBUMIN 2.8 GM/DL (3.2-5.2); ALT/SGPT 25 U/L (12-78); BILIRUBIN,TOTAL 0.2 MG/DL (0.2-1.0); BLOOD UREA NITROGEN 21 MG/DL (7-18); CALCIUM LEVEL 8.4 MG/DL (8.8-10.2); CARBON DIOXIDE LEVEL 32 MEQ/L (21-32); CHLORIDE LEVEL 88 MEQ/L (98-107); CREATININE FOR GFR 0.77 MG/DL (0.70-1.30); GLOMERULAR FILTRATION RATE > 60.0 (>49); GLUCOSE, FASTING 112 MG/DL (70-100); NT-PRO BNP 585 PG/ML (<125); POTASSIUM SERUM 5.2 MEQ/L (3.5-5.1); SODIUM LEVEL 128 MEQ/L (136-145); TOTAL PROTEIN 5.5 GM/DL (6.4-8.2)
[2018-10-24 06:21] LABS: ANISOCYTOSIS 1+
--- NOTE | 2018-10-24 07:30 | REP ---
Clinical: History of interstitial lung disease with possible pulmonary edema. Technique: Axial noncontrast images from the thoracic inlet to the upper abdomen with coronal and sagittal re-formations. Comparison: 10/17/2018. Findings: Underlying chronic interstitial disease is again appreciated as well as superimposed scattered ground-glass infiltrates, subtle predominately infrahilar areas of opacity and small/moderate pleural effusions. Findings are relatively similar to prior examination. No obvious adenopathy. The tracheobronchial tree appears patent. No pneumothorax. Atherosclerotic changes to the thoracic aorta and coronary arteries noted without aortic aneurysm, cardiomegaly or pericardial effusion. Limited evaluation of the upper abdomen demonstrates normal bilateral adrenal glands along with very subtle stable stranding at the level of the chantell hepatis which is nonspecific. Impression: 1. Small to moderate pleural effusions along with scattered bilateral ground-glass infiltrates and subtle small areas of infrahilar opacities appear relatively similar to 10/17/2018 but significantly improved when compared with 09/23/2018. No obvious new acute process identified. 2. Atherosclerotic disease to the thoracic aorta and coronary arteries without cardiomegaly or pericardial effusion and no evidence for aortic aneurysm. Electronically Signed by Bill Angel MD 10/24/2018 07:21 A
--- NOTE | 2018-10-24 08:50 | IPNPDOC ---
Subjective Date Seen The patient was seen on 10/24/18. Subjective Chief Complaint/HPI patient feels weaker since bigger dose of prednisone started and notes desats with minimal exertion. Constitutional: Denies: Chills ENT: Denies: Head Aches Pulmonary: Reports: Cough Cardiovascular: Denies: Chest Pain, Palpitations Gastrointestinal: Denies: Nausea, Vomiting, Abdominal Pain Hematologic: Denies: Bruising, Petecchia Neurological: Reports: Weakness (sense of global muscle weakness) Psych: Reports: Mood Normal Objective Physical Examination General Exam: Positive: Alert, Cooperative, No Acute Distress Chest Exam: Positive: Rales (late inspiratory faint rales noted.), Diminished (diffusely diminished with reduced air movement.), Other; Negative: Clear to auscultation, Rhonchi, Wheezing Heart Exam: Positive: Rate Normal, Regular Rhythm, Normal S1, Normal S2; Negative: Tachycardic, Irregular Rhythm Abdomen Exam: Positive: Normal bowel sounds, Soft; Negative: Tenderness Extremity Exam: Positive: Edema (2+ ankle edema BL) Neuro Exam: Positive: Normal Speech Psych Exam: Positive: Mood NL, Anxiety (mildly) Assessment /Plan Problems (1) Acute respiratory failure with hypoxemia Status: Acute Response to Treatment: Stable, Improving Discussed With: Nurse, Patient Problem Specific Plan: Monitor Clinically, Repeat Labs Problem Text: 10/24: ct done today. report says similar but slightly better to previous ct. await Dr. Cruz opinion about the study. 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 Plan CT tomorrow and possible bronch. He has told me that he is not enthusiastic ab out potentially being on a ventilator, but accepts that risk. 10/21 -- patient remains on Bactrim. If not improved by Wednesday, which is looking likely, plan bronchoscopy. Oxygen demands remain high, and patient is desatting with minimal exertion. Patient voices desire for full code status. D7 empiric Bactrim for PJP, s/p Zosyn x 6 days - stoppped by ID 10/20 Pulmonary consult pending due to severe hypoxemia with minimal exertion Unable to give sputum for Culture (No productive sputum) 10/19/18: s/p ID consult. Duonebs added q 6 hrs. DC solu-medrol. Start Prednisone 60 mg po bid. 10/18/18: repeat bl cxs and fungal smear remain pending. Patient continues with dyspnea. CT Chest competed and demonstrates improvement. see report below. 10/17/18 fungal smear/culture and DFA staining obtained (ordered 10/15!) 10/17 CT chest: The diffuse bilateral interstitial and alveolar infiltrates identified on 09/23/2018 have decreased. The bilateral pleural effusions have decreased. The extensive mediastinal lymph node enlargement identified on 05/19/2089, has resolved. 10/17/18: patient states he feels significantly better. Continues to require 5 LNC. HOLD on diuresing due to soft BP. HR remains stable. Bl cx and sputum cx pending. 10/16: LDH elevated above baseline elevation from lymphoma which can be seen c PJP. Sulfa/TMP started yesterday. Hypoxic with minimal exertion. Diuresis has diminished since change to po lasix. will repeat BNP, may need IV lasix again. 09/28/18 Fungitell >500-Ddx: PJP, Lise spp, Aspergillus less likely given 09/24 A flavus/fumigatus, niger Ab -/galacto Ag - (2) Acute on chronic diastolic (congestive) heart failure Status: Acute Response to Treatment: Stable, Improving Problem Specific Plan: Monitor Clinically Problem Text: 10/23 -- albumin and pro-BNP ordered for tomorrow; renal function has remained stable, though there is some concern that his malaise today may indicate overdiuresis. 10/22 -- I&Os show patient consistently net negative. 10/21 - Getting Lasix 40 BID with fair diuresis per I + Os BP stable 10/17/18: HOLD on diuresing due to soft BP. HR remains stable. 10/16: CXR looks a little wetter, BNP pending; may need increase laxix CXR in am, continue lasix for now. Last ECHO 09/18 with nl EF< Gr 1 diastolic dysfunction. Cont with Lasix IV, change diet to low sodium. Monitor I & Os. (3) Large B-cell lymphoma Status: Acute Problem Specific Plan: Monitor Clinically Problem Text: 10/16: may need to be rescheduled depending. Follows with [facility] Onc as outpt, scheduled for final chemo 10/21. (4) Gram-positive cocci in clusters Status: Resolved Response to Treatment: Stable Problem Text: 10/19/18: repeat bl. cx negative. 10/17 BCX2 P 10/13 BCX1/1 + for micrococcus. most likley contaminant. will repeat BCX (5) Pancytopenia due to chemotherapy Status: Resolved Problem Text: s/p Nulasta 10/14 (6) Paroxysmal atrial fibrillation Status: Chronic Response to Treatment: Stable Problem Text: rate controlled on Metoprolol and Multaq (7) Hyponatremia Status: Chronic Response to Treatment: Stable Problem Text: his sxt/tmp is in water, so asked pharmacy to reduce volume that his antibiotic is in. not stable in NS, only D5W. (8) Full code status Plan/VTE VTE Prophylaxis Ordered?: Yes (Lovenox) [facility] Vital Signs Date Time Temp Pulse Resp B/P (MAP) Pulse Ox O2 Delivery O2 Flow Rate FiO2 10/24/18 08:00 97.7 67 20 108/60 (76) 97 5.0 10/24/18 07:21 Nasal Cannula 10/20/18 12:00 50 I&O- Last 24 Hours up to 6 AM 10/24/18 06:00 Intake Total 2087.500 ml Output Total 1845 ml Balance 242.500 ml Laboratory Data 24H LABS Laboratory Tests 2 10/24/18 05:13: Immature Granulocyte % (Auto) , White Blood Count 10.1H, Red Blood Count 3.89L, Hemoglobin 10.5L, Hematocrit 33.2L, Mean Corpuscular Volume 85.3, Mean Corpusc ular Hemoglobin 27.0, Mean Corpuscular Hemoglobin Concent 31.6L, Red Cell Distribution Width 17.6H, Platelet Count 92L, Lymphocytes # (Auto) , Nucleated Red Blood Cells % (auto) 0.0, Neutrophils 96H, Metamyelocytes 4H, Platelet Estimate DECREASED, Immature Platelet Fraction 3.6, Anisocytosis 1+, Anion Gap 8, Glomerular Filtration Rate > 60.0, Blood Urea Nitrogen 21H, Creatinine 0.77, Sodium Level 128L, Potassium Level 5.2H, Chloride Level 88L, Carbon Dioxide Level 32, Calcium Level 8.4L, Aspartate Amino Transf (AST/SGOT) 35, Alanine Aminotransferase (ALT/SGPT) 25, Alkaline Phosphatase 110, Total Bilirubin 0.2, Total Protein 5.5L, Albumin 2.8L, PW-Fto-L-Type Natriuretic Peptide 585H, Albumin/Globulin Ratio 1.04 CBC/BMP Laboratory Tests 10/24/18 05:13 Red Blood Count 3.89 L, Mean Corpuscular Volume 85.3, Mean Corpuscular Hemoglobin 27.0, Mean Corpuscular Hemoglobin Concent 31.6 L, Red Cell Distribution Width 17.6 H, Lymphocytes # (Auto) , Calcium Level 8.4 L, Aspartate Amino Transf (AST/SGOT) 35, Alanine Aminotransferase (ALT/SGPT) 25, Alkaline Phosphatase 110, Total Bilirubin 0.2, Total Protein 5.5 L, Albumin 2.8 L Microbiology Microbiology 10/17/18 Blood Culture - Final, Complete NO GROWTH AFTER 5 DAYS 10/17/18 Blood Culture - Final, Complete NO GROWTH AFTER 5 DAYS 10/17/18 Fungal Smear, Received Pending 10/17/18 Fungal Culture, Received Pending 10/14/18 Gram Stain - Final, Complete 10/14/18 Sputum Culture - Final, Complete Klebsiella Pneumoniae Yeast Like Organism Justus Woods MD Oct 24, 2018 08:50
[2018-10-24] MEDS: OMEPRAZOLE 20 MG CAP PO SCH (09:54)
[2018-10-24] MEDS: FUROSEMIDE 40 MG TAB PO SCH ×2 (09:55→18:07)
[2018-10-24] MEDS: predniSONE 10 MG TAB PO SCH ×2 (09:55→22:48)
[2018-10-24] MEDS: DRONEDARONE 400 MG TAB (MULTAQ) PO SCH (09:55)
[2018-10-24] MEDS: ENOXAPARIN 40 MG/0.4 ML SYRINGE (J1650) SC SCH (09:56)
--- NOTE | 2018-10-24 15:19 | CCN ---
DATE OF SERVICE: 10/24/2018 Mr. Cabrera is seen in PCU. He is sitting up in a chair. He reports he continues to desaturate with exertional activities. Currently he states he is fairly comfortable just at rest. He denies any fevers or chills. He has had overall some improvement in his symptoms and states he does not feel short of breath as he had when he first came in. He also notes that he feels a little less weak than he had even yesterday. He is still getting diuresed with Lasix. He states he is producing more sputum and a sputum culture for cytology was collected yesterday and is currently pending. PHYSICAL EXAMINATION: Vitals: Temperature 97.7, pulse 67, respiratory rate 20, blood pressure 108/60, pulse ox 97% on 5 liters. General: The patient is alert and oriented times three. He is sitting up in a chair. He speaks in complete sentences. HEENT: Head is normocephalic, atraumatic. Moist mucous membranes. Tongue is midline. Pupils equal and reactive to light. Neck: Neck is supple. No cervical lymphadenopathy. No jugular venous distention (JVD). Trachea is midline. Pulmonary: Bibasilar rales which do seem decreased compared to Wednesday's exam. No dullness to percussion. No accessory muscle use. Cardiac: Regular rate and rhythm. S1, S2. No murmurs. Abdomen: Positive bowel sounds, soft, nontender. No rebound or guarding. No hepatosplenomegaly. Extremities: The patient has 2+ pitting edema bilateral lower extremities. Does have some venous stasis changes of the bilateral lower extremities. Neuro: The patient is able to move his upper and lower extremities. No tremor. LABORATORY DATA: WBC 10.1, hemoglobin 10.5, hematocrit 33.2, platelets 92. Sodium 128, potassium 5.2, chloride 88, carbon dioxide 32, BUN 21, creatinine 0.77, glucose 112, calcium 8.4, total bilirubin 0.2, AST 35, ALT 25, alk phos 110. BNP 585, total protein 5.5, albumin 2.8. Chest CT from today was obtained and reviewed by Dr. Cruz and myself and shows continued bilateral pleurale effusions. There are scattered bilateral ground glass opacities that do appear to be slightly improved compared with prior chest CT from 10/17/2018. ASSESSMENT/PLAN: 1. Severe hypoxia with pulmonary infiltrates. Etiology still somewhat unclear, pulmonary edema versus fungal infection. The patient is being treated for PCP. He is on IV Bactrim. It is less likely that this is a drug induced pneumonitis as the patient has been on chronic steroid therapy. He does have a history of being on RCHOP for treatment of B-cell lymphoma. Again he has been on prednisone for a while so it is less likely that this is drug induced pneumonitis. A sputum for cytology was collected yesterday and is pending. We contacted the pathology/cytology department and hopefully this will be back soon. Dr. Cruz and the patient again discussed possible bronchoscopy. However, the patient would be at increased risk for pneumothorax and increased risk for ending up needing ventilator postprocedurally. At this point, the patient states that he is aware of these risks and does not wish to proceed with bronchoscopy at this point in time. The patient's prednisone has been decreased to 30 mg b.i.d. from 60 mg b.i.d. Will continue to try to decrease prednisone. Possibly the prednisone is contributing to the patient's weakness. Overall, the patient is clinically improved. He did have a chest CT today that does show some slight improvement of the scattered bilateral ground glass opacities. Edema. The patient is continuing with diuresis. He is getting Lasix. His albumin is still low at 2.8. Ensure was added and he is drinking Ensure.
[2018-10-24] MEDS ORDERED: PILL CUTTER 1 EACH XX PRN (22:30)
[2018-10-24] MEDS: VORICONAZOLE 200MG TABLET (VFEND) PO SCH ×2 (22:49)
[2018-10-24] MEDS: METOPROLOL SUCC *XL* 12.5MG PER 1/2 TAB (TopROL *XL*) PO SCH (22:49)
[2018-10-25] VITALS (24 sets, daily range): BP systolic 112–159; BP diastolic 58–81; O2SAT 83–97
[2018-10-25] MEDS: D5W IV SCH ×4 (00:13→18:29)
[2018-10-25] MEDS: SULFAMETHOXAZOLE IV SCH ×4 (00:13→18:29)
[2018-10-25] MEDS: TRIMETHOPRIM IV SCH ×4 (00:13→18:29)
[2018-10-25] MEDS: IPRATROPIUM 0.5MG/ALBUTEROL 2.5MG INH SOL UD 3ML (DUONEB)(J7620) NEB SCH ×4 (01:09→20:48)
[2018-10-25 06:02] LABS: HEMATOCRIT 34.1 % (42.0-52.0); HEMOGLOBIN 10.9 g/dl (13.5-17.5); MEAN CORPUSCULAR HEMOGLOBIN 27.1 pg (27.0-33.0); MEAN CORPUSCULAR VOLUME 84.8 fl (80.0-96.0); RED BLOOD COUNT 4.02 10^6/uL (4.30-6.10); WHITE BLOOD COUNT 13.2 10^3/uL (4.0-10.0)
[2018-10-25] MEDS: SLF 3 ML SYR IV SCH ×3 (06:02→22:00)
[2018-10-25 06:06] LABS: PLATELET COUNT, AUTOMATED 93 10^3/uL (150-450)
[2018-10-25 06:30] LABS: ALBUMIN 3.1 GM/DL (3.2-5.2); ALT/SGPT 28 U/L (12-78); BILIRUBIN,TOTAL 0.2 MG/DL (0.2-1.0); BLOOD UREA NITROGEN 17 MG/DL (7-18); CALCIUM LEVEL 8.3 MG/DL (8.8-10.2); CARBON DIOXIDE LEVEL 31 MEQ/L (21-32); CHLORIDE LEVEL 85 MEQ/L (98-107); CREATININE FOR GFR 0.74 MG/DL (0.70-1.30); GLOMERULAR FILTRATION RATE > 60.0 (>49); GLUCOSE, FASTING 87 MG/DL (70-100); POTASSIUM SERUM 5.2 MEQ/L (3.5-5.1); SODIUM LEVEL 126 MEQ/L (136-145); TOTAL PROTEIN 5.5 GM/DL (6.4-8.2)
[2018-10-25 06:32] LABS: LYMPHOCYTES 1 % (16-52); METAMYELOCYTES 1 % (0-0); NEUTROPHILS 96 % (35-75); PLATELET ESTIMATE DECREASED (NORMAL)
[2018-10-25 06:33] LABS: ANISOCYTOSIS 1+; OVALOCYTES 1+
--- NOTE | 2018-10-25 08:45 | IPNPDOC ---
Subjective Date Seen The patient was seen on 10/25/18. Subjective Chief Complaint/HPI feels a bit depresses/hopeless. dyspnea with minimal activity. ENT: Denies: Head Aches Pulmonary: Reports: Dyspnea; Denies: Pleuritic Chest Pain Cardiovascular: Denies: Chest Pain, Palpitations Gastrointestinal: Denies: Nausea, Abdominal Pain Neurological: Reports: Weakness (feels global weakness, not focal) Psych: Reports: Depression (per CC, feeling a bit negative due to slow progress) Objective Physical Examination General Exam: Positive: Alert, Cooperative, No Acute Distress Eye Exam: Positive: PERRLA Neck Exam: Negative: thyromegaly Chest Exam: Positive: Rales (late inspiratory faint rales noted.), Diminished (diffusely diminished with reduced air movement.), Other; Negative: Clear to auscultation, Rhonchi, Wheezing Heart Exam: Positive: Rate Normal, Regular Rhythm, Normal S1, Normal S2; Negative: Tachycardic, Irregular Rhythm Telemetry: Positive: Atrial fibrillation Abdomen Exam: Positive: Normal bowel sounds, Soft; Negative: Tenderness Extremity Exam: Positive: Edema (1+ ankle edema BL) Neuro Exam: Positive: Normal Speech Psych Exam: Positive: Mood NL, Anxiety (mildly) Assessment /Plan Problems (1) Acute respiratory failure with hypoxemia Status: Acute Response to Treatment: Stable, Improving Discussed With: Nurse, Patient Problem Specific Plan: Monitor Clinically, Repeat Labs Problem Text: 10/25: voriconazole added yesterday to Multaq stopped; sxt/tmp dose optimized to 20mg/kg 10/24: ct done today. report says similar but slightly better to previous ct. await Dr. Cruz opinion about the study. 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 Plan CT tomorrow and possible bronch. He has told me that he is not enthusiastic about potentially being on a ventilator, but accepts that risk. 10/21 -- patient remains on Bactrim. If not improved by Wednesday, which is looking likely, plan bronchoscopy. Oxygen demands remain high, and patient is desatting with minimal exertion. Patient voices desire for full code status. D7 empiric Bactrim for PJP, s/p Zosyn x 6 days - stoppped by ID 10/20 Pulmonary consult pending due to severe hypoxemia with minimal exertion Unable to give sputum for Culture (No productive sputum) 10/19/18: s/p ID consult. Duonebs added q 6 hrs. DC solu-medrol. Start Prednisone 60 mg po bid. 10/18/18: repeat bl cxs and fungal smear remain pending. Patient continues with dyspnea. CT Chest competed and demonstrates improvement. see report below. 10/17/18 fungal smear/culture and DFA staining obtained (ordered 10/15!) 10/17 CT chest: The diffuse bilateral interstitial and alveolar infiltrates identified on 09/23/2018 have decreased. The bilateral pleural effusions have decreased. The extensive mediastinal lymph node enlargement identified on 05/19/2089, has resolved. 10/17/18: patient states he feels significantly better. Continues to require 5 LNC. HOLD on diuresing due to soft BP. HR remains stable. Bl cx and sputum cx pending. 10/16: LDH elevated above baseline elevation from lymphoma which can be seen c PJP. Sulfa/TMP started yesterday. Hypoxic with minimal exertion. Diuresis has diminished since change to po lasix. will repeat BNP, may need IV lasix again. 09/28/18 Fungitell >500-Ddx: PJP, Lise spp, Aspergillus less likely given 09/24 A flavus/fumigatus, niger Ab -/galacto Ag - (2) Acute on chronic diastolic (congestive) heart failure Status: Acute Response to Treatment: Stable, Improving Problem Specific Plan: Monitor Clinically Problem Text: 10/23 -- albumin and pro-BNP ordered for tomorrow; renal function has remained stable, though there is some concern that his malaise today may indicate overdiuresis. 10/22 -- I&Os show patient consistently net negative. 10/21 - Getting Lasix 40 BID with fair diuresis per I + Os BP stable 10/17/18: HOLD on diuresing due to soft BP. HR remains stable. 10/16: CXR looks a little wetter, BNP pending; may need increase laxix CXR in am, continue lasix for now. Last ECHO 09/18 with nl EF< Gr 1 diastolic dysfunction. Cont with Lasix IV, change diet to low sodium. Monitor I & Os. (3) Large B-cell lymphoma Status: Acute Problem Specific Plan: Monitor Clinically Problem Text: 10/16: may need to be rescheduled depending. Follows with [facility] Onc as outpt, scheduled for final chemo 10/21. (4) Gram-positive cocci in clusters Status: Resolved Response to Treatment: Stable Problem Text: 10/19/18: repeat bl. cx negative. 10/17 BCX2 P 10/13 BCX1/1 + for micrococcus. most likley contaminant. will repeat BCX (5) Pancytopenia due to chemotherapy Status: Resolved Problem Text: s/p Nulasta 10/14 (6) Paroxysmal atrial fibrillation Status: Chronic Response to Treatment: Stable Problem Text: 10/25: Multaq stopped due to interaction with voriconazole after discussion with Dr. Arellano rate controlled on Metoprolol and Multaq (7) Hyponatremia Status: Chronic Response to Treatment: Stable Problem Text: 10/25: slightly worse sodium and persistent hyperkalemia. this combination can be side effect of SXT/TMP. Has sent communication to Dr. 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 his sxt/tmp is in water, so asked pharmacy to reduce volume that his antibiotic is in. not stable in NS, only D5W. (8) Full code status Plan/VTE VTE Prophylaxis Ordered?: Yes (Lovenox) VS, I&O, 24H, Fishbone Vital Signs/I&O Vital Signs Date Time Temp Pulse Resp B/P (MAP) Pulse Ox O2 Delivery O2 Flow Rate FiO2 10/25/18 08:00 97.1 81 22 125/59 (81) 90 5.0 10/25/18 05:00 Nasal Cannula 10/20/18 12:00 50 I&O- Last 24 Hours up to 6 AM 10/25/18 06:00 Intake Total 1994.4375 ml Output Total 2325 ml Balance -330.5625 ml Laboratory Data 24H LABS Laboratory Tests 2 10/24/18 14:31: 10/24/18 16:23: 10/25/18 05:20: Immature Granulocyte % (Auto) , White Blood Count 13.2H, Red Blood Count 4.02L, Hemoglobin 10.9L, Hematocrit 34.1L, Mean Corpuscular Volume 84.8, Mean Corpuscular Hemoglobin 27.1, Mean Corpuscular Hemoglobin Concent 32.0, Red Cell Distribution Width 17.6H, Platelet Count 93L, Lymphocytes # (Auto) , Nucleated Red Blood Cells % (auto) 0.0, Neutrophils 96H, Band Neutrophils 2, Lymphocytes (Manual) 1L, Metamyelocytes 1H, Platelet Estimate DECREASED, Immature Platelet Fraction 4.6, Anisocytosis 1+, Ovalocytes 1+, Anion Gap 10, Glomerular Filtration Rate > 60.0, Blood Urea Nitrogen 17, Creatinine 0.74, Sodium Level 126L, Potassium Level 5.2H, Chloride Level 85L, Carbon Dioxide Level 31, Calcium Level 8.3L, Aspartate Amino Transf (AST/SGOT) 44H, Alanine Aminotransferase (ALT/SGPT) 28, Alkaline Phosphatase 117, Total Bilirubin 0.2, Total Protein 5.5L, Albumin 3.1L, Albumin/Globulin Ratio 1.29 CBC/BMP Laboratory Tests 10/25/18 05:20 Red Blood Count 4.02 L, Mean Corpuscular Volume 84.8, Mean Corpuscular Hemoglobin 27.1, Mean Corpuscular Hemoglobin Concent 32.0, Red Cell Distribution Width 17.6 H, Lymphocytes # (Auto) , Calcium Level 8.3 L, Aspartate Amino Transf (AST/SGOT) 44 H, Alanine Aminotransferase (ALT/SGPT) 28, Alkaline Phosphatase 117, Total Bilirubin 0.2, Total Protein 5.5 L, Albumin 3.1 L Microbiology Microbiology 10/17/18 Blood Culture - Final, Complete NO GROWTH AFTER 5 DAYS 10/17/18 Blood Culture - Final, Complete NO GROWTH AFTER 5 DAYS 10/17/18 Fungal Smear, Received Pending 10/17/18 Fungal Culture, Received Pending Justus Woods MD Oct 25, 2018 08:45
[2018-10-25] MEDS: VORICONAZOLE 200MG TABLET (VFEND) PO SCH ×4 (09:22→20:34)
[2018-10-25] MEDS: predniSONE 10 MG TAB PO SCH ×2 (09:22→20:34)
[2018-10-25] MEDS: OMEPRAZOLE 20 MG CAP PO SCH (09:23)
[2018-10-25] MEDS: FUROSEMIDE 40 MG TAB PO SCH (09:25)
[2018-10-25] MEDS ORDERED: FUROSEMIDE 20 MG TAB PO ONE (10:00)
[2018-10-25] MEDS: ENOXAPARIN 40 MG/0.4 ML SYRINGE (J1650) SC SCH (10:46)
--- NOTE | 2018-10-25 11:25 | CCN ---
DATE OF SERVICE: 10/25/2018 Mr. Cabrera in progressive care unit (PCU). He is sitting up in chair. He states overall he feels about the same but perhaps marginally improved compared to yesterday. He notes he continues to have significant dyspnea with any exertion especially with standing up. Physical therapy has been working with the patient and has been giving some exercises. He denies any fevers or chills. Denies any chest pain. He has been getting diuresed with Lasix and medicine team has increased his Lasix today. PHYSICAL EXAMINATION: VITALS: Temperature 97.1, pulse 81, respiratory 22, blood pressure is 125/59, pulse ox 90% on 5 liters. GENERAL: The patient is alert and oriented times three. He speaks in complete sentences. He is sitting up in a chair. HEENT: Head is normocephalic, atraumatic. Moist mucous membranes. Tongue is midline. NECK: Neck is supple. No cervical lymphadenopathy. No Jugular venous distention (JVD). Trachea is midline. PULMONARY: No wheezes or rhonchi. Bibasilar rales. Slight dullness to percussion at the bilateral bases. No accessory muscle use. CARDIAC: Regular rate and rhythm. S1, S2 no murmurs. ABDOMEN: Positive bowel sounds, soft, nontender. No rebound or guarding. No hepatosplenomegaly. EXTREMITIES: The patient has 1-2+ pitting edema in the bilateral lower extremities. NEURO: The patient is able to move his upper and lower extremities. No tremor. LABS: WBC 13.2, hemoglobin 10.9, hematocrit 34.1, platelets 93. Sodium 126, potassium 5.2, chloride 85, carbon dioxide 31, BUN 17, creatinine 0.74, glucose 87, calcium 8.3, total bili 0.2, AST 44, ALT 20, alk phos 117, total protein 5.5, albumin 3.1. ASSESSMENT/PLAN: 1. Severe hypoxia with pulmonary infiltrates: The patient is still getting hypoxic with exertion. He is being diuresed and medicine team has increased his dose of Lasix. Continue with diuresis. The patient is still being worked up for possible pneumocystis pneumonia (PCP) infection versus fungal infection. Sputum cytology did not show PCP. Continuing to attempt to collect additional sputum collections for further PCP testing. Additionally, Cryptococcus antigen and Histoplasma antigen testing is being performed and tests are currently pending. The patient is currently being treated with Bactrim which is been optimized 20 mg/kg. The patient does have hyponatremia which has been progressing as well as progressive hyperkalemia. There is concern that possibly the Bactrim is causing this. Dr. Yu from infectious disease is on board and we will continue discussion to see of there are other medications such as dapsone or atovaquone that may be options for treatment. The patient continues on steroids. Dose was decreased yesterday and the patient is on prednisone 30 mg twice a day. The steroid dose was decreased due to possible myopathy. Will continue the current dose of prednisone 30 mg twice a day for now but continue to monitor closely. The patient was also initiated on voriconazole yesterday. He will continue to monitor closely. IT is felt that this is less likely to be a drug induced pneumonitis as the patient has been on the chronic steroid therapy. He has a history of being on R-CHOP for treatment of B-cell lymphoma with his last treatments back in August. Dr. Cruz has discussed bronchoscopy with the patient. He would be at increased risk for needing to be on ventilator after bronchoscopy. The patient has been made aware of these risks and at present time, he states he is not interested in pursuing bronchoscopy and has reaffirmed this. Will continue to monitor. 2. Question PCP infection: See above. The patient is currently on Bactrim. Will continue to discuss any possible regimen changes based on infectious disease recommendations,.
[2018-10-25] MEDS: FUROSEMIDE 20 MG TAB PO SCH (17:37)
--- NOTE | 2018-10-25 20:01 | ECHO ---
DATE OF PROCEDURE: 10/24/2018 REFERRING PHYSICIAN: Dr. Woods INDICATION: Dyspnea. Height 157 cm, weight 75 kg. DIMENSIONS: IVS: 1.1 LV: 4.9 LVPW: 0.9 LA: 3.9 Aorta: 3.1 Mitral E wave velocity: 100 A wave: 104 E prime septal: 7.7 E prime lateral: 14.7 Left atrial volume index: 24 FINDINGS: The study is of fair technical quality with somewhat challenging visualization. The patient is in sinus rhythm. Left ventricle is normal size and grossly normal contractility. I do not appreciate any distinct wall motion abnormalities. Overall estimated left ventricular ejection fraction (LVEF) 60-65%. Right ventricle also appears to be normal size and contractility. Both atria appear normal. Aortic valve has three cusps. It is sclerotic but mobility is preserved. There are also degenerative abnormalities of mitral valve with thickening of leaflets and mitral annular calcifications, but mobility of leaflets is intact. Tricuspid and pulmonic valves appear normal. No pericardial effusion is present. Inferior vena cava is of relatively small caliber. Aortic root and aortic arch appear grossly normal. Abdominal aorta was not well visualized. Doppler interrogation of aortic valve reveals no stenosis or insufficiency. There is trace mitral insufficiency and trace tricuspid insufficiency. Calculated pulmonary artery pressure is in low 30s corresponding to mild pulmonary hypertension. Pulmonic valve is functionally competent. Mitral inflow pattern and tissue Doppler imaging of mitral annulus revealed probably grade 1 diastolic dysfunction even though tissue Doppler velocities are relatively preserved. CONCLUSIONS: 1. Study is of fair technical quality. 2. Normal LV size with normal LV systolic function and grade 1 diastolic dysfunction. 3. Aortic sclerosis but no stenosis or insufficiency. 4. Degenerative abnormalities of mitral valve with no stenosis and trace insufficiency. 5. Likely normal central venous pressure and possibly mild pulmonary hypertension. COMMENT: Subacute bacterial endocarditis (SBE) prophylaxis is not recommended. It is unlikely that the patient's dyspnea is due to congestive heart failure.
[2018-10-25] MEDS: METOPROLOL SUCC *XL* 12.5MG PER 1/2 TAB (TopROL *XL*) PO SCH (20:34)
[2018-10-26] VITALS (13 sets, daily range): BP systolic 112–147; BP diastolic 57–82; O2SAT 87–96
[2018-10-26] MEDS: TRIMETHOPRIM IV SCH ×3 (00:34→11:58)
[2018-10-26] MEDS: D5W IV SCH ×3 (00:34→11:58)
[2018-10-26] MEDS: SULFAMETHOXAZOLE IV SCH ×3 (00:34→11:58)
[2018-10-26] MEDS: IPRATROPIUM 0.5MG/ALBUTEROL 2.5MG INH SOL UD 3ML (DUONEB)(J7620) NEB SCH ×4 (02:30→19:58)
[2018-10-26 05:21] LABS: HEMATOCRIT 32.4 % (42.0-52.0); HEMOGLOBIN 10.7 g/dl (13.5-17.5); MEAN CORPUSCULAR HEMOGLOBIN 27.1 pg (27.0-33.0); RED BLOOD COUNT 3.95 10^6/uL (4.30-6.10); WHITE BLOOD COUNT 16.4 10^3/uL (4.0-10.0)
[2018-10-26 05:22] LABS: PLATELET COUNT, AUTOMATED 93 10^3/uL (150-450)
[2018-10-26 05:42] LABS: ALBUMIN 3.1 GM/DL (3.2-5.2); ALT/SGPT 27 U/L (12-78); BILIRUBIN,TOTAL 0.2 MG/DL (0.2-1.0); BLOOD UREA NITROGEN 16 MG/DL (7-18); CALCIUM LEVEL 8.5 MG/DL (8.8-10.2); CARBON DIOXIDE LEVEL 33 MEQ/L (21-32); CHLORIDE LEVEL 81 MEQ/L (98-107); GLOMERULAR FILTRATION RATE > 60.0 (>49); GLUCOSE, FASTING 95 MG/DL (70-100); POTASSIUM SERUM 4.7 MEQ/L (3.5-5.1); SODIUM LEVEL 124 MEQ/L (136-145); TOTAL PROTEIN 5.8 GM/DL (6.4-8.2)
[2018-10-26] MEDS ORDERED: SODIUM CHLORIDE HYPERTONIC 3% 15ML NEB SOL NEB ONE ×2 (06:00→09:45)
[2018-10-26] MEDS: SLF 3 ML SYR IV SCH ×3 (06:37→20:29)
[2018-10-26] MEDS ORDERED: FUROSEMIDE 100 MG/10 ML VIAL (J1940) IV ONE (08:15)
--- NOTE | 2018-10-26 08:36 | REP ---
Nickel: Hypoxia. Comparison: 10/23/2018. Findings: Mediastinum and cardiac silhouette are stable. [id number] identified with tip in the SVC. The increased interstitial markings and indistinct pulmonary vasculature along with subtle bibasilar atelectasis and small pleural effusions are similar to prior examination. Differential diagnosis includes pulmonary edema versus multifocal pneumonia. Impression: 1. Findings described above most compatible with CHF/pulmonary edema. Differential diagnosis would include multifocal pneumonia. Electronically Signed by Bill Angel MD 10/26/2018 08:27 A
[2018-10-26] MEDS: ENOXAPARIN 40 MG/0.4 ML SYRINGE (J1650) SC SCH (08:52)
[2018-10-26] MEDS: OMEPRAZOLE 20 MG CAP PO SCH (08:52)
[2018-10-26] MEDS: predniSONE 10 MG TAB PO SCH (08:53)
[2018-10-26] MEDS: FUROSEMIDE 20 MG TAB PO SCH ×2 (08:53→17:21)
[2018-10-26] MEDS: VORICONAZOLE 200MG TABLET (VFEND) PO SCH ×4 (08:54→20:26)
--- NOTE | 2018-10-26 09:35 | IPNPDOC ---
Subjective Date Seen The patient was seen on 10/26/18. Subjective Chief Complaint/HPI more dysnpeic overnight, increasing sense of weakness ENT: Denies: Head Aches Cardiovascular: Reports: Orthopnea; Denies: Chest Pain Gastrointestinal: Denies: Nausea, Abdominal Pain Hematologic: Denies: Bruising Psych: Reports: Depression (feeling a bit hopeless) Objective Physical Examination General Exam: Positive: Alert, Cooperative, No Acute Distress Eye Exam: Positive: PERRLA Neck Exam: Negative: thyromegaly Chest Exam: Positive: Rales (late inspiratory rales noted.), Diminished (diffusely diminished with reduced air movement.), Other; Negative: Clear to auscultation, Rhonchi, Wheezing Heart Exam: Positive: Rate Normal, Regular Rhythm, Normal S1, Normal S2; Negative: Tachycardic, Irregular Rhythm Telemetry: Positive: Atrial fibrillation Abdomen Exam: Positive: Normal bowel sounds, Soft; Negative: Tenderness Extremity Exam: Positive: Edema (1+ ankle edema BL) Neuro Exam: Positive: Normal Speech Psych Exam: Positive: Mood NL, Anxiety (mildly) Assessment /Plan Problems (1) Acute respiratory failure with hypoxemia Status: Acute Response to Treatment: Stable, Improving Discussed With: Nurse, Patient Problem Specific Plan: Monitor Clinically, Repeat Labs Problem Text: 10/26: still on Bactrim for 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 CXR looks a bit better. 10/25: voriconazole added yesterday to Multaq stopped; sxt/tmp dose optimized to 20mg/kg 10/24: ct done today. report says similar but slightly better to previous ct. await Dr. Cruz opinion about the study. 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 Plan CT tomorrow and possible bronch. He has told me that he is not enthusiastic about potentially being on a ventilator, but accepts that risk. 10/21 -- patient remains on Bactrim. If not improved by Wednesday, which is looking likely, plan bronchoscopy. Oxygen demands remain high, and patient is desatting with minimal exertion. Patient voices desire for full code status. D7 empiric Bactrim for PJP, s/p Zosyn x 6 days - stoppped by ID 10/20 Pulmonary consult pending due to severe hypoxemia with minimal exertion Unable to give sputum for Culture (No productive sputum) 10/19/18: s/p ID consult. Duonebs added q 6 hrs. DC solu-medrol. Start Prednisone 60 mg po bid. 10/18/18: repeat bl cxs and fungal smear remain pending. Patient continues with dyspnea. CT Chest competed and demonstrates improvement. see report below. 10/17/18 fungal smear/culture and DFA staining obtained (ordered 10/15!) 10/17 CT chest: The diffuse bilateral interstitial and alveolar infiltrates identified on 09/23/2018 have decreased. The bilateral pleural effusions have decreased. The extensive mediastinal lymph node enlargement identified on 05/19/2089, has resolved. 10/17/18: patient states he feels significantly better. Continues to require 5 LNC. HOLD on diuresing due to soft BP. HR remains stable. Bl cx and sputum cx pending. 10/16: LDH elevated above baseline elevation from lymphoma which can be seen c PJP. Sulfa/TMP started yesterday. Hypoxic with minimal exertion. Diuresis has diminished since change to po lasix. will repeat BNP, may need IV lasix again. 09/28/18 Fungitell >500-Ddx: PJP, Lise spp, Aspergillus less likely given 09/24 A flavus/fumigatus, niger Ab -/galacto Ag - (2) Acute on chronic diastolic (congestive) heart failure Status: Acute Response to Treatment: Stable, Improving Problem Specific Plan: Monitor Clinically Problem Text: 10/26: lasix increased to 60 bid overnight, Dr. Cruz ordered 100mg IV lasix dose this am. 10/23 -- albumin and pro-BNP ordered for tomorrow; renal function has remained stable, though there is some concern that his malaise today may indicate overd iuresis. 10/22 -- I&Os show patient consistently net negative. 10/21 - Getting Lasix 40 BID with fair diuresis per I + Os BP stable 10/17/18: HOLD on diuresing due to soft BP. HR remains stable. 10/16: CXR looks a little wetter, BNP pending; may need increase laxix CXR in am, continue lasix for now. Last ECHO 09/18 with nl EF< Gr 1 diastolic dysfunction. Cont with Lasix IV, change diet to low sodium. Monitor I & Os. (3) Large B-cell lymphoma Status: Acute Problem Specific Plan: Monitor Clinically Problem Text: 10/16: may need to be rescheduled depending. Follows with [facility] Onc as outpt, scheduled for final chemo 10/21. (4) Gram-positive cocci in clusters Status: Resolved Response to Treatment: Stable Problem Text: 10/19/18: repeat bl. cx negative. 10/17 BCX2 P 10/13 BCX1/1 + for micrococcus. most likley contaminant. will repeat BCX (5) Pancytopenia due to chemotherapy Status: Resolved Problem Text: s/p Nulasta 10/14 (6) Paroxysmal atrial fibrillation Status: Chronic Response to Treatment: Stable Problem Text: 10/25: Multaq stopped due to interaction with voriconazole after discussion with Dr. Arellano rate controlled on Metoprolol and Multaq (7) Hyponatremia Status: Chronic Response to Treatment: Stable, Worse Problem Text: 10/26: sodium down to 124 today. will restrict hypotonic fluids, K now normal. possible side effect of SXT/TMP. 10/25: slightly worse sodium and persistent hyperkalemia. this combination can be side effect of SXT/TMP. Has sent communication to Dr. 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 his sxt/tmp is in water, so asked pharmacy to reduce volume that his antibiotic is in. not stable in NS, only D5W. Plan/VTE VTE Prophylaxis Ordered?: Yes (Lovenox) VS, I&O, 24H, Fishbone Vital Signs/I&O Vital Signs Date Time Temp Pulse Resp B/P (MAP) Pulse Ox O2 Delivery O2 Flow Rate FiO2 10/26/18 08:00 96.6 82 18 120/62 (81) 94 5.0 10/26/18 04:00 Nasal Cannula 10/20/18 12:00 50 I&O- Last 24 Hours up to 6 AM 10/26/18 06:00 Intake Total 1953.4375 ml Output Total 1775 ml Balance 178.4375 ml Laboratory Data 24H LABS Laboratory Tests 2 10/26/18 05:01: Nucleated Red Blood Cells % (auto) 0.0, Anion Gap 10, Glomerular Filtration Rate > 60.0, Blood Urea Nitrogen 16, Creatinine 0.70, Sodium Level 124L, Potassium Level 4.7, Chloride Level 81L, Carbon Dioxide Level 33H, Calcium Level 8.5L, Aspartate Amino Transf (AST/SGOT) 49H, Alanine Aminotransferase (ALT/SGPT) 27, Alkaline Phosphatase 121H, Total Bilirubin 0.2, Total Protein 5.8L, Albumin 3.1L, Albumin/Globulin Ratio 1.15 CBC/BMP Laboratory Tests 10/26/18 05:01 Red Blood Count 3.95 L, Mean Corpuscular Volume 82.0, Mean Corpuscular Hemoglobin 27.1, Mean Corpuscular Hemoglobin Concent 33.0, Red Cell Distribution Width 17.2 H, Calcium Level 8.5 L, Aspartate Amino Transf (AST/SGOT) 49 H, Alanine Aminotransferase (ALT/SGPT) 27, Alkaline Phosphatase 121 H, Total Bilirubin 0.2, Total Protein 5.8 L, Albumin 3.1 L Microbiology Microbiology 10/17/18 Blood Culture - Final, Complete NO GROWTH AFTER 5 DAYS 10/17/18 Blood Culture - Final, Complete NO GROWTH AFTER 5 DAYS 10/17/18 Fungal Smear, Received Pending 10/17/18 Fungal Culture, Received Pending Justus Woods MD Oct 26, 2018 09:35
--- NOTE | 2018-10-26 11:18 | CCN ---
DATE: 10/26/2018 Mr. Cabrera is seen in the progressive care unit (PCU). He is sitting up in a chair. He states that overall he feels about the same as far as his breathing goes, in that he continues to get dyspneic with any exertion. He continues to complain of significant weakness, which he feels has been progressively worsening. He notes that he has significant weakness anytime he tries to stand, actually almost fell over if it was not for the nurse helping him yesterday. He continues to get diuresed and is on Lasix. He was given an additional IV Lasix dose this morning. His sodium has continued to progressively worsen, however, his potassium is better today. He denies fevers or chills. He denies chest pain. PHYSICAL EXAMINATION: VITAL SIGNS: Temperature 96.6, pulse 82, respiratory rate 18, blood pressure 120/62, pulse oximetry 94% on 5 liters. Input and output, intake 2073 and output 1974, balance is 99. GENERAL: The patient is alert and oriented times three. He speaks in complete sentences. He is sitting up in a chair. HEENT: Head is normocephalic, atraumatic. Moist mucous membranes. Tongue is midline. NECK: Supple. No cervical lymphadenopathy. No jugular venous distention (JVD). Trachea is midline. PULMONARY: The patient has bibasilar rales that do appear to be slightly improved today compared to yesterday. No wheezes or rhonchi noted. There is some slight dullness to percussion at the bilateral bases. No accessory muscle use. CARDIAC: Regular rate and rhythm. S1, S2. No murmurs. ABDOMEN: Positive bowel sounds. Soft, nontender. No rebound or guarding. No hepatosplenomegaly. EXTREMITIES: The patient has 1+ pitting edema in bilateral lower extremities. NEUROLOGIC: The patient is able to move up and lower extremities. LABORATORIES: WBC 16.4, hemoglobin 10.7, hematocrit 32.4, platelets 93. Sodium 124, potassium 4.7, chloride 81, carbon dioxide 33, BUN 16, creatinine 0.70, glucose 95, calcium 8.5, total bilirubin 0.2, AST 49, ALT 27, alkaline phosphatase 121, total protein 5.8, albumin 3.1. Chest x-ray done today on 10/26/2018 was reviewed and compared to prior chest x-ray from 10/23/2018. There does appear to be slight improvement with slightly decreased interstitial markings on today's chest x-ray compared to the chest x-ray from the and there does appear to be a little better aeration on today's chest x-ray in comparison to the earlier one as well. ASSESSMENT AND PLAN: 1. Severe hypoxia. The patient continues to have significant hypoxia with exertion. He is continued on supplemental oxygen. The patient is continuing with diuresis and additional IV Lasix dose was initiated today. Continue to work towards diuresis. 2. Abnormal CT. The patient is still being treated for a possible PCP infection versus additional fungal infection. Sputum cytology did not show PCP. The patient also is continuing to try to bring up another sputum for additional sputum culture. He has been on Bactrim. There is concern that the Bactrim may be contributing to his hyponatremia. We have discussed the case with the infectious disease specialist, Dr. Yu, and plan will be to discontinue the Bactrim and change to atovaquone for treatment of PCP. Again, as noted in previous notes, the patient's symptoms and abnormal chest CT initially were felt to be possibly drug-induced pneumonitis; however, he has been on steroids consistently and has continued to have symptoms and the abnormal imaging, therefore we believe that drug-induced pneumonitis is less likely. He is continuing on voriconazole as well for coverage of other possible fungal infections. Continue to monitor. Dr. Cruz has discussed bronchoscopy with the patient. The patient would be at increased risk for need to be on a ventilator after bronchoscopy. He has been made aware of these risks and continues to refuse bronchoscopy. 2. Hyponatremia. The patient's sodium level has continued to decrease. Free water restrictions were initiated. He has been on salt restrictions, which we will discontinue and place on a regular diet with continued fluid restrictions as ordered. May consider syndrome of inappropriate antidiuretic hormone secretion workup. The patient is getting Lasix currently. Continue to monitor closely. 3. B-cell lymphoma. The patient most recently had R-CHOP chemotherapy for B-cell lymphoma in August. 4. Weakness. The patient's weakness may be from the hyponatremia, see above. Additionally, he has been on a steroid. He is currently on prednisone 30 mg twice a day, which may also be contributing towards a possible myopathy. We will continue to titrate down the prednisone. We will place him on 20 mg twice a day, starting today. Consider decreasing this further to possibly 15 mg twice a day tomorrow if his hypoxia does not worsen. We will continue to monitor closely. 5. Leukocytosis. As noted above, the patient is being treated for PCP and possible fungal infection. His white blood cell count is up slightly to 16.4 today. He has been on steroids, which could also be contributing to leukocytosis. Continue to monitor this very closely. He is afebrile.
[2018-10-26] MEDS: ATOVAQUONE SUSP 750MG/5ML 210 ML BTL PO SCH ×2 (14:25→20:25)
[2018-10-26 17:15] LABS: ALBUMIN 3.3 GM/DL (3.2-5.2); ALT/SGPT 31 U/L (12-78); BILIRUBIN,TOTAL 0.2 MG/DL (0.2-1.0); BLOOD UREA NITROGEN 16 MG/DL (7-18); CALCIUM LEVEL 8.7 MG/DL (8.8-10.2); CARBON DIOXIDE LEVEL 30 MEQ/L (21-32); CHLORIDE LEVEL 77 MEQ/L (98-107); CREATININE FOR GFR 0.77 MG/DL (0.70-1.30); GLOMERULAR FILTRATION RATE > 60.0 (>49); GLUCOSE, FASTING 115 MG/DL (70-100); POTASSIUM SERUM 4.7 MEQ/L (3.5-5.1); SODIUM LEVEL 120 MEQ/L (136-145); TOTAL PROTEIN 6.1 GM/DL (6.4-8.2)
[2018-10-26] MEDS ORDERED: SODIUM CHLORIDE 3% 100 ML IV SCH ×2 (18:00→23:30)
[2018-10-26 18:55] LABS: NT-PRO BNP 1355 PG/ML (<125)
[2018-10-26 19:08] LABS: OSMOLALITY SERUM 257 MOSM/KG (280-301)
[2018-10-26 19:21] LABS: CREATININE,RANDOM URINE 16.9 MG/DL; POTASSIUM RANDOM URINE 26.4 MEQ/L
--- NOTE | 2018-10-26 19:35 | CCN ---
DATE: 10/26/2018 On my recheck of Mr. Cabrera today, I had called to see what his urine output had been. He had put out over a liter with the Lasix. I therefore ordered repeat labs. When I called back for the results of the repeat labs which did show worsening hyponatremia to a sodium of 120, the nurse had indicated that the patient was starting to have more confusion, was actually having double vision. I therefore transferred him to the unit. Instructed to stop his Lasix. I then consulted nephrology who agrees with the consideration of hypertonic saline and had ordered it. Nephrology presenting for consultation. At bedside, his blood pressure was more than adequate. He was awake, alert and oriented. Vital signs: Temperature 96.6, pulse is 78, respiratory rate is 20, blood pressure is 147/79 with a mean arterial pressure of 101, oxygen saturation is 91% on 7 liters, which is slightly more oxygen than he was requiring this morning. HEENT: Sclerae clear and anicteric. Mucous membranes appear slightly dry. Tongue is midline. Neck is supple. No tracheal deviation. No mass. Lymphs: No cervical or clavicular adenopathy. Pulmonary: Diffuse bilateral crackles, rales. Cardiac: Regular S1, S2 without audible murmur, rub or gallop. No elevated JVP. Extremities: Still continues to have significant pitting edema. LABS: Laboratory evaluation showed a sodium of 110, a potassium of 4.7, chloride of 77, bicarb of 30, BUN of 16, creatinine of 0.77 with serum osm's pending and a BNP pending. BNP was last measured on 10/24 with 585. I also reviewed the radiology report which shows findings consistent with congestive heart failure (CHF) or pulmonary edema according to the radiology report. I do believe there is some significant improvement when compared to 10/23. IMPRESSION Severe hyponatremia with some altered mental status, brought to the ICU. Will continue to monitor sodium frequently. Consulted nephrology. Appreciate their input. I have contacted the primary team to discuss my interventions. The differential includes Bactrim hypotonic fluid administration, over diuresis, under diuresis, SIADH. Will await nephrology's final consultation and continue to monitor closely. I have placed the patient on seizure precautions.
[2018-10-26] MEDS: METOPROLOL SUCC *XL* 12.5MG PER 1/2 TAB (TopROL *XL*) PO SCH (20:25)
[2018-10-26] MEDS: predniSONE 20 MG TAB PO SCH (20:25)
[2018-10-26 23:00] LABS: BLOOD UREA NITROGEN 16 MG/DL (7-18); CALCIUM LEVEL 8.3 MG/DL (8.8-10.2); CARBON DIOXIDE LEVEL 33 MEQ/L (21-32); CHLORIDE LEVEL 80 MEQ/L (98-107); GLOMERULAR FILTRATION RATE > 60.0 (>49); GLUCOSE, FASTING 91 MG/DL (70-100); POTASSIUM SERUM 4.4 MEQ/L (3.5-5.1); SODIUM LEVEL 122 MEQ/L (136-145)
[2018-10-27] VITALS (8 sets, daily range): BP systolic 110–147; BP diastolic 62–83; O2SAT 90–93
[2018-10-27 00:07] LABS: CRYPTOCOCCUS ANTIGEN SER Negative (Negative)
[2018-10-27] MEDS: IPRATROPIUM 0.5MG/ALBUTEROL 2.5MG INH SOL UD 3ML (DUONEB)(J7620) NEB SCH ×4 (01:11→19:37)
[2018-10-27 05:23] LABS: HEMATOCRIT 32.7 % (42.0-52.0); HEMOGLOBIN 10.6 g/dl (13.5-17.5); MEAN CORPUSCULAR HEMOGLOBIN 26.6 pg (27.0-33.0); MEAN CORPUSCULAR HGB CONC 32.4 g/dl (32.0-36.5); PLATELET COUNT, AUTOMATED 83 10^3/uL (150-450); RED BLOOD COUNT 3.99 10^6/uL (4.30-6.10); WHITE BLOOD COUNT 15.1 10^3/uL (4.0-10.0)
[2018-10-27] MEDS: SLF 3 ML SYR IV SCH ×3 (05:46→20:49)
[2018-10-27 05:51] LABS: ALT/SGPT 27 U/L (12-78); BILIRUBIN,TOTAL 0.3 MG/DL (0.2-1.0); BLOOD UREA NITROGEN 16 MG/DL (7-18); CALCIUM LEVEL 8.1 MG/DL (8.8-10.2); CARBON DIOXIDE LEVEL 32 MEQ/L (21-32); CHLORIDE LEVEL 82 MEQ/L (98-107); CREATININE FOR GFR 0.72 MG/DL (0.70-1.30); GLOMERULAR FILTRATION RATE > 60.0 (>49); GLUCOSE, FASTING 82 MG/DL (70-100); POTASSIUM SERUM 4.4 MEQ/L (3.5-5.1); SODIUM LEVEL 122 MEQ/L (136-145); TOTAL PROTEIN 5.4 GM/DL (6.4-8.2)
--- NOTE | 2018-10-27 06:04 | CR ---
DATE OF CONSULTATION: 10/26/2018 REQUESTING PHYSICIAN: Dr. Sudhakar Cruz. CONSULTING PHYSICIAN: Dr. Sinclair. REASON FOR CONSULTATION: Management of symptomatic hyponatremia. REASON FOR ADMISSION: The patient is admitted to the intensive care unit (ICU) because of hypoxia and shortness of breath. NOTE: The history was obtained from the critical care team and from the patient's chart, the patient is unable to provide any reliable history at this point. HISTORY OF PRESENT ILLNESS: Mr. Henrik Cabrera is a 63 year-old male with past medical history of large B-cell lymphoma status post five cycles of R-CHOP, adequate renal function with a baseline creatinine of 0.85 on admission and baseline sodium of 113 on admission. He has had a complicated course after the chemotherapy. He was initially admitted in August with increasing shortness of breath. He was treated for bacterial pneumonia with broad-spectrum antibiotics and he was discharged home on cefdinir. Later on beta 1 3 glucan came back positive. The patient was hospitalized again this time on October 14, 2018 with progressive shortness of breath. He was seen by infectious disease and he was started on intravenous (IV) Bactrim for possible Pneumocystis pneumonia and the rest of the antibody testing for the rest of the fungal infection was also sent. The patient's sodium was 137 on October 15, 2018, that is when he was on Bactrim and after that his sodium started falling down. It went down to 132 on October 16 and it remained in the low 130s until October 24 when the sodium dropped to 128. He was also being diuresed with IV Lasix because of shortness of breath. A repeat basic metabolic profile (BMP) done today in the afternoon showed a sodium of 120 so the nephrology service was called for further help in the management of this patient. The patient needed my emergent attention. I was told that the patient was symptomatic with confusion, shortness of breath and hyponatremia. I saw the patient in the ICU today in the evening. When I saw him he had already gotten the Bowers catheter placed. He was awake and in mild respiratory distress. He was able to once at the questions and follow the commands. The patient had already been given a dose of Lasix in the afternoon as well because of evidence of pulmonary edema on the chest x-ray. PAST MEDICAL HISTORY: 1. Large B-cell lymphoma, stage IV, status post R-CHOP five cycles. 2. Paroxysmal atrial fibrillation (A-fib). 3. History of chronic diastolic congestive heart failure. 4. Diabetes mellitus type 2 improving after he lost weight due to chemotherapy and cancer. 5. A recent admission in August 2018 because of multifocal pneumonia. 6. Currently being treated for possible fungal infection versus Pneumocystis pneumonia. PAST SURGICAL HISTORY: 1. Status post Port-A-Cath placement. 2. Status post lymph node biopsy of the groin. ALLERGIES: NO KNOWN DRUG ALLERGIES. FAMILY HISTORY: No significant family history of end-stage renal disease requiring hemodialysis. SOCIAL HISTORY: There is no history of her smoking, illicit drug abuse or alcohol abuse. The patient lives alone. REVIEW OF SYSTEMS: Constitutional: The patient denies any fevers and chills. Eyes: He denies any blurry vision or double vision but I was told by the nursing staff that he was having blurry vision three hours ago. ENT: Denies any dysphagia, odynophagia. Cardiovascular: Denies any chest pain or palpitation. Respiratory: He does report shortness of breath. Gastrointestinal (GI): Denies any nausea, vomiting. Genitourinary: He reports that he feels like he has to pee but has had a Bowers catheter placed. Musculoskeletal: He denies any muscle aches or pains. Skin: He denies any rashes or ulcers. Hematology/Oncology: He reports history of B-cell lymphoma. Central nervous system (DRY HOUSE ATTENDANT): There is no seizure. Psychiatric: He denies any depression or anxiety. Endocrine: The patient has history of diabetes. He denies any polyphagia or polydipsia. All other review of systems is negative. PHYSICAL EXAMINATION: General: The patient is awake, alert, oriented times three laying in bed in mild respiratory distress. Vital signs: Temperature is 97.2 degrees Fahrenheit, blood pressure 122/82, pulse is 86, respiratory 24, saturating 97% on 8 liters by nasal cannula. Intake and output: Urine output recorded as 1.7 liters so far since overnight. Head and neck exam: Extraocular muscles intact. Pupils equally round and reactive to light. Mucous membranes are slightly dry. Neck: Neck is supple. There is no jugular venous distention (JVD). He has a right internal jugular (IJ) Port-A-Cath which goes in the right-sided anterior chest wall. Cardiovascular: Sinus, 2+ edema of the bilateral lower extremities up to mid briggs only. Respiratory: Mildly decreased breath sounds at the bases and no active rales or rhonchi. Abdomen is soft. Positive bowel sounds. Nontender. No organomegaly. Genitourinary: Patient has an indwelling Bowers catheter, slight pale colored urine is found in the bag. Musculoskeletal: No clubbing or cyanosis. Pulses are 2+. DRY HOUSE ATTENDANT: No focal deficit. Power is 5/5 in bilateral upper extremities. The patient is able to follow commands site. Psychiatric: The patient is slightly agitated because of shortness of breath. LABORATORY REVIEW: CBC showed WBC of 16.4, hemoglobin 10.7, platelets are 93. Urine random creatinine 16.9, random sodium is 94, potassium is 26.4, chloride is 98. BMP showed sodium 120, potassium 4.7, chloride 77, bicarb is 30, BUN 16, creatinine is 0.77, glucose 115, serum osmolalities 257, calcium is 8.7. BNP is 1355, albumin is 3.3. Microbiology: Sputum cultures on October 14 came back positive for Klebsiella pneumoniae and yeastlike organism. IMAGING STUDIES: A chest x-ray done today morning showed interstitial pulmonary vasculature was increased with septal bibasilar atelectasis most likely compatible with congestive heart failure (CHF). The differential diagnosis included multifocal pneumonia. CURRENT INPATIENT MEDICATIONS: The patient's medications include: - Bactrim 375 mg IV every 6 hourly, it was stopped this morning - Tylenol taken as needed - DuoNebs every 6 hours as needed - he has been started on atovaquone 750 mg by mouth twice a day - Lovenox 40 mg subcutaneous daily - he was on Lasix for 60 mg intravenous twice daily which has been stopped now - metoprolol drip 5 mg nightly - Prilosec 40 mg daily - Zofran 80 mg by mouth three times a day - prednisone 30 mg twice a day which has been tapered down to 20 mg twice a day - voriconazole 200 mg by mouth twice a day ASSESSMENT: This is a 63-year-old male with stage IV large B-cell lymphoma status post R-CHOP currently with hypoxemia, pulmonary edema with atypical pneumonia most likely pneumocystis versus fungal infection, symptomatic hyponatremia. PLAN: 1. Symptomatic hyponatremia. The patient's sodium dropped from 124-120 in the afternoon. Clinically is very difficult to assess the volume status of the patient. He only has lower extremity edema. There is no evidence of jugular venous distention (JVD) but he has elevated brain natriuretic peptide (BNP) levels. It is neither euvolemic for hypovolemic hyponatremia. Urine lytes at this point are not reliable because the patient was getting IV Lasix. The patient was given emergent hypertonic saline 100 mL over 3 hours. BMP will be repeated after hypertonic saline avoid further use of Lasix. Hyponatremia most likely secondary to combination of use of IV high-dose Bactrim and high dose of Lasix. Hopefully his sodium level should start improving over the next 24-48 hours because Bactrim has been stopped and he has been switched to atovaquone. Lasix is also on hold. 2. Hypoxemia. This is secondary to a combination of pulmonary edema and interstitial pneumonia. I am not sure whether pulmonary edema is secondary to fluid overload or secondary to sudden hyponatremia. The patient was already given two doses of Lasix today. He is making good amount of urine. No further need of Lasix administration. Continue the oxygen supplementation as per primary team. 3. Interstitial pneumonitis. The patient likely has Pneumocystis pneumonia versus a fungal infection. He is already being covered with voriconazole, oral steroids. He was initially getting IV Bactrim, but because of hyponatremia he has been switched to atovaquone. The rest of the management is as per infectious disease and the pulmonary team. 4. Large B-cell lymphoma. The patient is status post R-CHOP five cycles. He is currently being treated for pneumonia. The rest of the management will be done as outpatient by Hem/Onc. 5. Chronic diastolic congestive heart failure. The patient's latest echo done two days ago was noted. No significant findings of inferior vena cava (IVC) plethora IVC or volume overload were noted. However, the patient has already been given Lasix today morning because of elevated BNP and pulmonary congestion on the chest x-ray. He has grade 1 diastolic dysfunction on the echocardiogram. No further need of diuretic today. Further volume status will be assessed tomorrow morning for any need to give him more loop diuretics. Thank you for involving me in the care of this patient. I shall be happy to follow the patient with you tomorrow morning. Total critical care time spent in the management of this patient today evening in the intensive care unit (ICU) was one hour. PATT
[2018-10-27] MEDS: ONDANSETRON 4 MG TAB (S0181) PO PRN (08:19)
[2018-10-27] MEDS ORDERED: SODIUM CHLORIDE 3% 100 ML IV SCH (08:26)
[2018-10-27] MEDS: ENOXAPARIN 40 MG/0.4 ML SYRINGE (J1650) SC SCH (09:01)
[2018-10-27] MEDS: VORICONAZOLE 200MG TABLET (VFEND) PO SCH ×3 (09:02→20:48)
[2018-10-27] MEDS: OMEPRAZOLE 20 MG CAP PO SCH (09:02)
[2018-10-27] MEDS: ATOVAQUONE SUSP 750MG/5ML 210 ML BTL PO SCH ×2 (09:02→20:49)
[2018-10-27] MEDS: predniSONE 20 MG TAB PO SCH ×2 (09:04→20:48)
--- NOTE | 2018-10-27 09:21 | CCN ---
DATE: 10/27/2018 PULMONARY CRITICAL CARE NOTE: Mr. Reynoso is seen in the intensive care unit (ICU). He was transferred to the ICU yesterday for symptomatic hyponatremia. Nephrology was consulted and are following along as well. The patient is getting hypertonic saline. This morning he does note that he is feeling better today than he was yesterday. He has had some acute delirium and states that he has seen some hallucinations during the night. He states he knows that they were hallucinations and states he is not having any visual or auditory hallucinations currently. The patient also had noted that he had, had some double vision when he was symptomatic yesterday, which he states has resolved by this morning. He states he is feeling better today. His oxygen level is still desaturating with any exertion and he remains on high-flow oxygen. He continues to have significant dyspnea with exertion. He denies fevers or chills. Denies any chest pain. PHYSICAL EXAMINATION: VITAL SIGNS: Temperature is 97.6, pulse is 92, respiratory 26, blood pressure is 147/83. The patient is on 8 liters and is saturating about 94%. Urine output is 100 mL over the past 2 hours. GENERAL: The patient is alert and oriented. He has been having some visual hallucinations during the night but is not currently exhibiting any hallucinations, and he notes that he knows that they were hallucinations. He speaks in complete sentences. He asks appropriate questions. HEENT: Head is normocephalic, atraumatic. Pupils are equal and reactive to light and accommodation. Moist mucous membranes. Tongue is midline. Neck is supple. No cervical lymphadenopathy. No jugular venous distention (JVD). Trachea is midline. PULMONARY: Bibasilar rales. No wheezes or rhonchi. Slight dullness to percussion at the bilateral bases. No accessory muscle use. CARDIAC: Regular rate and rhythm. S1, S2. No murmurs. ABDOMEN: Positive bowel sounds, soft, nontender. No rebound or guarding. No hepatosplenomegaly. EXTREMITIES: The patient has trace to 1+ pitting edema in the distal bilateral lower extremities. NEUROLOGIC: The patient is able to move his upper and lower extremities. Strength testing of the bilateral lower extremities is about 3-4/5 but equal bilaterally. Braid Cutter strength is 4/5 and equal bilaterally. SKIN: Skin is warm and dry. LABORATORY DATA: WBC 15.1, hemoglobin 10.6, hematocrit 32.7, platelets 83. Sodium 122, potassium 4.4, chloride 82, carbon dioxide 32, BUN 16, creatinine 0.72, glucose 82, calcium 8.1, total bilirubin 0.3, AST 48, ALT 27, alkaline phosphatase 117, total protein 5.4, albumin 3.0, TSH 0.380. ASSESSMENT/PLAN: 1. Severe hypoxia. The patient continues to have severe hypoxia requiring high flow oxygen. He had been getting diuresis with Lasix. This was held. Nephrology is on board for his hyponatremia. Continue to monitor. 2. Abnormal chest CT. The patient is being treated for possible PCP infection versus additional fungal infection. He has had been on Bactrim, which was stopped for concern of contributing to the hyponatremia. He is now on atovaquone. He is also on voriconazole for coverage of other possible fungal infections. The patient has been on steroids since his last hospitalization, and therefore, drug induced pneumonitis is less likely than PCP and/or fungal infection. Dr. Cruz has discussed bronchoscopy with the patient. The patient was advised to the risk including increased risk for ventilator after bronchoscopy. The patient states he is not interested in pursuing bronchoscopy. 3. Hyponatremia. Nephrology is on board and following the patient. They have ordered hypertonic saline, which the patient is getting. His sodium is improved slightly to 122 from 120 yesterday. Labs for hyponatremia have been ordered. 4. Acute delirium. Likely caused by the hyponatremia. The patient currently is not having any delirium. Will continue to monitor. 5. Leukocytosis. The patient is being treated for PCP and fungal infections. White blood cell count is down today to 15.1. He still remains on prednisone, which could be contributing to the leukocytosis. Will continue to monitor this. The patient has been afebrile. 6. Weakness. The patient's weakness may be from the hyponatremia. His steroids have are being decreased as the prednisone may be contributing towards possible myopathy. He is currently on prednisone 20 mg twice a day. Will continue to monitor this closely and continue to work towards decreasing this if the hypoxia does not worsen.
[2018-10-27] MEDS ORDERED: SODIUM CHLORIDE 3% 500 ML IV SCH ×2 (09:30→10:00)
[2018-10-27 09:35] LABS: OSMOLALITY URINE 491 MOSM/KG (500-800)
[2018-10-27 09:48] LABS: NT-PRO BNP 1193 PG/ML (<125)
[2018-10-27 09:51] LABS: SODIUM,RANDOM URINE 83 MEQ/L
--- NOTE | 2018-10-27 10:30 | IPNPDOC ---
Subjective Date Seen The patient was seen on 10/27/18. Subjective Chief Complaint/HPI feels better today. Constitutional: Denies: Chills ENT: Denies: Head Aches Skin: Denies: Rash Pulmonary: Reports: Dyspnea Cardiovascular: Denies: Chest Pain, Orthopnea Gastrointestinal: Denies: Nausea Genitourinary: Denies: Dysuria Hematologic: Denies: Petecchia Neurological: Reports: Weakness (still weak but diplopia and hallucinations noted late yesterday have resolved.) Psych: Reports: Mood Normal Objective Physical Examination General Exam: Positive: Alert, Cooperative, No Acute Distress Eye Exam: Positive: PERRLA Neck Exam: Negative: thyromegaly Chest Exam: Positive: Rales (late inspiratory rales noted. somewhat improved compared to yesterday), Diminished (diffusely diminished with reduced air move ment.), Other; Negative: Clear to auscultation, Rhonchi, Wheezing Heart Exam: Positive: Rate Normal, Regular Rhythm, Normal S1, Normal S2; Negative: Tachycardic, Irregular Rhythm Telemetry: Positive: Atrial fibrillation Abdomen Exam: Positive: Normal bowel sounds, Soft; Negative: Tenderness Extremity Exam: Positive: Edema (1+pedal edema, more on left, no longer has edema over pretibial area.) Skin Exam: Positive: Nl turgor and temperature Neuro Exam: Positive: Normal Speech Psych Exam: Positive: Mood NL, Anxiety (mildly) Assessment /Plan Problems (1) Acute respiratory failure with hypoxemia Status: Acute Response to Treatment: Stable, Improving Discussed With: Nurse, Patient Problem Specific Plan: Monitor Clinically, Repeat Labs Problem Text: 10/27: switched to atovaquone yesterday due to progressive hyponatremia and requirement for IV bactrim to be given in D5W 10/26: still on Bactrim for 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 CXR looks a bit better. 10/25: voriconazole added yesterday to Multaq stopped; sxt/tmp dose optimized to 20mg/kg 10/24: ct done today. report says similar but slightly better to previous ct. await Dr. Cruz opinion about the study. 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 Plan C T tomorrow and possible bronch. He has told me that he is not enthusiastic about potentially being on a ventilator, but accepts that risk. 10/21 -- patient remains on Bactrim. If not improved by Wednesday, which is looking likely, plan bronchoscopy. Oxygen demands remain high, and patient is desatting with minimal exertion. Patient voices desire for full code status. D7 empiric Bactrim for PJP, s/p Zosyn x 6 days - stoppped by ID 10/20 Pulmonary consult pending due to severe hypoxemia with minimal exertion Unable to give sputum for Culture (No productive sputum) 10/19/18: s/p ID consult. Duonebs added q 6 hrs. DC solu-medrol. Start Prednisone 60 mg po bid. 10/18/18: repeat bl cxs and fungal smear remain pending. Patient continues with dyspnea. CT Chest competed and demonstrates improvement. see report below. 10/17/18 fungal smear/culture and DFA staining obtained (ordered 10/15!) 10/17 CT chest: The diffuse bilateral interstitial and alveolar infiltrates identified on 09/23/2018 have decreased. The bilateral pleural effusions have decreased. The extensive mediastinal lymph node enlargement identified on 05/19/2089, has resolved. 10/17/18: patient states he feels significantly better. Continues to require 5 LNC. HOLD on diuresing due to soft BP. HR remains stable. Bl cx and sputum cx pending. 10/16: LDH elevated above baseline elevation from lymphoma which can be seen c PJP. Sulfa/TMP started yesterday. Hypoxic with minimal exertion. Diuresis has diminished since change to po lasix. will repeat BNP, may need IV lasix again. 09/28/18 Fungitell >500-Ddx: PJP, Lise spp, Aspergillus less likely given 09/24 A flavus/fumigatus, niger Ab -/galacto Ag - (2) Acute on chronic diastolic (congestive) heart failure Status: Acute Response to Treatment: Stable, Improving Problem Specific Plan: Monitor Clinically Problem Text: 10/27: due to rapidly worsening hyponatremia, furosemide has been held. 10/26: lasix increased to 60 bid overnight, Dr. Cruz ordered 100mg IV lasix dose this am. 10/23 -- albumin and pro-BNP ordered for tomorrow; renal function has remained stable, though there is some concern that his malaise today may indicate ove rdiuresis. 10/22 -- I&Os show patient consistently net negative. 10/21 - Getting Lasix 40 BID with fair diuresis per I + Os BP stable 10/17/18: HOLD on diuresing due to soft BP. HR remains stable. 10/16: CXR looks a little wetter, BNP pending; may need increase laxix CXR in am, continue lasix for now. Last ECHO 09/18 with nl EF< Gr 1 diastolic dysfunction. Cont with Lasix IV, change diet to low sodium. Monitor I & Os. (3) Large B-cell lymphoma Status: Acute Problem Specific Plan: Monitor Clinically Problem Text: 10/16: may need to be rescheduled depending. Follows with [facility] Onc as outpt, scheduled for final chemo 10/21. (4) Gram-positive cocci in clusters Status: Resolved Response to Treatment: Stable Problem Text: 10/19/18: repeat bl. cx negative. 10/17 BCX2 P 10/13 BCX1/1 + for micrococcus. most likley contaminant. will repeat BCX (5) Hyponatremia Status: Chronic Response to Treatment: Stable, Worse Problem Text: 10/27: after IV lasix yesterday, repeat sodium showed quick drop to 120 accompanied by ICING MAKER symptoms of diplopia and confusion and hallucinations. Dr. Miri Pedro consulted and patient moved to ICU to administer 3% NS, being given through port. ICING MAKER symptoms have resolved although weakness remains. and 10/26: sodium down to 124 today. will restrict hypotonic fluids, K now normal. possible side effect of SXT/TMP. 10/25: slightly worse sodium and persistent hyperkalemia. this combination can be side effect of SXT/TMP. Has sent communication to Dr. 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 his sxt/tmp is in water, so asked pharmacy to reduce volume that his antibiotic is in. not stable in NS, only D5W. (6) Pancytopenia due to chemotherapy Status: Resolved Problem Text: s/p Nulasta 10/14 (7) Paroxysmal atrial fibrillation Status: Chronic Response to Treatment: Stable Problem Text: 10/25: Multaq stopped due to interaction with voriconazole after discussion with Dr. Arellano. rate controlled on Metoprolol Plan/VTE VTE Prophylaxis Ordered?: Yes (Lovenox) VS, I&O, 24H, Fishbone Vital Signs/I&O Vital Signs Date Time Temp Pulse Resp B/P (MAP) Pulse Ox O2 Delivery O2 Flow Rate FiO2 10/27/18 09:30 86 24 95 6.0 10/27/18 09:00 Nasal Cannula 10/27/18 08:00 97.6 114/65 (81) I&O- Last 24 Hours up to 6 AM 10/27/18 06:00 Intake Total 973.4375 ml Output Total 2880 ml Balance -1906.5625 ml Laboratory Data 24H LABS Laboratory Tests 2 10/26/18 16:30: Anion Gap 13, Glomerular Filtration Rate > 60.0, Blood Urea Nitrogen 16, Creatinine 0.77, Sodium Level 120L, Potassium Level 4.7, Chloride Level 77L, Carbon Dioxide Level 30, Calcium Level 8.7L, Aspartate Amino Transf (AST/SGOT) 59H, Alanine Aminotransferase (ALT/SGPT) 31, Alkaline Phosphatase 133H, Total Bilirubin 0.2, Total Protein 6.1L, Albumin 3.3, Albumin/Globulin Ratio 1.18 10/26/18 18:11: Osmolality 257L, OK-Fii-V-Type Natriuretic Peptide 1355H 10/26/18 18:49: Urine Random Creatinine 16.9, Urine Random Sodium 94, Urine Random Potassium 26.4, Urine Random Chloride 98 10/26/18 22:27: Anion Gap 9, Glomerular Filtration Rate > 60.0, Blood Urea Nitrogen 16, Creatinine 0.70, Sodium Level 122L, Potassium Level 4.4, Chloride Level 80L, Carbon Dioxide Level 33H, Calcium Level 8.3L 10/27/18 05:01: Nucleated Red Blood Cells % (auto) 0.0, Immature Platelet Fraction 5.9, Anion Gap 8, Glomerular Filtration Rate > 60.0, Blood Urea Nitrogen 16, Creatinine 0.72, Sodium Level 122L, Potassium Level 4.4, Chloride Level 82L, Carbon Dioxide Level 32, Calcium Level 8.1L, Aspartate Amino Transf (AST/SGOT) 48H, Alanine Aminotransferase (ALT/SGPT) 27, Alkaline Phosphatase 117, Total Bilirubin 0.3, Total Protein 5.4L, Albumin 3.0L, TA-Zol-K-Type Natriuretic Peptide 1193H, Albumin/Globulin Ratio 1.25, Thyroid Stimulating Hormone (TSH) 0.380 10/27/18 09:22: Urine Random Osmolality 491L, Urine Random Sodium 83 CBC/BMP Laboratory Tests 10/26/18 16:30 Calcium Level 8.7 L, Aspartate Amino Transf (AST/SGOT) 59 H, Alanine Aminotransferase (ALT/SGPT) 31, Alkaline Phosphatase 133 H, Total Bilirubin 0.2, Total Protein 6.1 L, Albumin 3.3 10/26/18 22:27 Calcium Level 8.3 L 10/27/18 05:01 Calcium Level 8.1 L, Aspartate Amino Transf (AST/SGOT) 48 H, Alanine Aminotransferase (ALT/SGPT) 27, Alkaline Phosphatase 117, Total Bilirubin 0.3, Total Protein 5.4 L, Albumin 3.0 L, Red Blood Count 3.99 L, Mean Corpuscular Volume 82.0, Mean Corpuscular Hemoglobin 26.6 L, Mean Corpuscular Hemoglobin Concent 32.4, Red Cell Distribution Width 17.2 H Microbiology Microbiology 10/17/18 Blood Culture - Final, Complete NO GROWTH AFTER 5 DAYS 10/17/18 Blood Culture - Final, Complete NO GROWTH AFTER 5 DAYS 10/17/18 Fungal Smear, Received Pending 10/17/18 Fungal Culture, Received Pending Justus Woods MD Oct 27, 2018 10:30
[2018-10-27 10:36] LABS: CORTISOL AM 15.6 UG/DL (4.3-22.4)
--- NOTE | 2018-10-27 13:39 | IPN ---
DATE OF SERVICE: 10/27/2018 SUBJECTIVE: The patient is seen and examined this morning at the bedside in the intensive care unit. He remained on hypertonic saline and has received about 300 mL all-in-all since being moved to the intensive care unit last night. His serum sodium has come up from 120 yesterday evening up to 124 this morning and the patient has visual hallucinations but nursing staff reports that he recognizes that they are hallucinations. At the time of my visit the patient was awake, alert and oriented to person, place and situation. His oxygen requirements are improved, he is down to 6 liters on high-flow but he continues to desaturate with even minimal exertion. He reports that subjectively he feels improvement in his breathing. He continues with the nausea and overall poor oral intake. Vital signs: Temperature 97.6, pulse 85, respiratory rate 24, blood pressure 114/65, saturating 95% on 6 liters nasal cannula. Intake yesterday was 1200 urine output yesterday was 2700, net negative 1450, weight in the bed scale today 71.4 kg which is decreased from prior. General: The patient is seen lying fairly flat in bed in the intensive care unit. He is awake, alert and oriented, cooperative with physical exam answers questions appropriately and is interactive, currently without any hallucinations. There is moist mucous membranes. Nasal cannula is in place. Neck is supple. Jugular veins were not elevated. Pulmonary shows diminished breath sounds at the bases. There is no conversational dyspnea. There is no accessory muscle use. Abdomen is soft and nontender. There are bowel sounds. Cardiac: Regular rate. S1-S2 no murmur. There is ankle edema only. There is no other peripheral edema nor dependent edema. Genitourinary: Shows Bowers catheter with urine. He moves all four extremities on command. Skin: Normal temperature and turgor. LABORATORY DATA: Sodium 124, potassium 4.4, bicarbonate 32. Serum osmolality 258, TSH and a.m. cortisol are both acceptable. Urine osmolality is 491. INPATIENT MEDICATIONS: He is receiving hypertonic saline at 40 mL an hour. His remainder of medications are unchanged from prior. PROBLEMS: 1. Hypo-osmolar symptomatic hyponatremia likely euvolemic versus mildly hypovolemic. Echocardiogram October 24 noted with normal central venous pressure. Patient became progressively hyponatremia over a period of about a week on combination Lasix and Bactrim. Urine studies were now completed when the effect of diuretics has worn off and inappropriately elevated urine osmolality of close to 500 is noted in the setting of depressed serum osmolality, this is indicative of antidiuretic hormone excess state, he is improving with hypertonic saline and we will continue the same. I would like to see his serum sodium come up to about 127-128 by this evening. 2. Acute respiratory failure with hypoxemia. His oxygen requirements are improving from prior. Lasix diuretic is held as it can worsen his serum sodium. If volume becomes a problem we can switch him Tolvaptan which will help with water excretion without dropping his sodium. His Bactrim has already been discontinued. He continues on steroids. His a.m. cortisol was acceptable. Pulmonary continues to follow him. His BNP is not much changed over the past 2 days. He is not having much oral intake due to nausea. Continue to hold diuretic and monitor volume and respiratory status. 3. Delirium, symptomatic hyponatremia. Continue sodium correction as outlined above nursing staff to call me with every 4 hourly serum sodium. He continues on hypertonic saline today and he is improving with that. If volume becomes an issue we will switch to Tolvaptan but at present I am satisfied with his volume status, especially given improvement in his oxygen requirement.
[2018-10-27 14:24] LABS: HISTOPLASMA GAL'MANNAN AG UR <0.5 (<0.5 ng/mL)
--- NOTE | 2018-10-27 18:11 | IPN ---
DATE: 10/27/2018 INFECTIOUS DISEASE PROGRESS NOTE Henrik was transferred to the intensive care unit (ICU) yesterday because of symptomatic hyponatremia with delirium. He was seen in consultation by Dr. Pedro and treated with hypertonic saline with improvement of mental status. He also states that since the Bactrim has been discontinued and he was switched to Mepron, his breathing has markedly improved. He feels he can breath deeper today. He has no nausea, vomiting or diarrhea. LABORATORY DATA: White count is 15.1, hemoglobin 10.6, hematocrit 32.7, platelets 83. Sodium 127 at 02:00 p.m.; earlier today was 122, potassium 4.4, chloride 82, bicarbonate 32, BUN 16, creatinine 0.72, glucose 82, osmolality 258, calcium 8.1. AST 48, ALT 27, alkaline phosphatase 117. Brain natriuretic peptide (BNP) 1193, Total protein 5.4 . MEDICATIONS: - voriconazole 200 mg by mouth twice a day, currently day #3 started on 10/24/2018 - Mepron 750 mg by mouth twice a day, started 10/26/2018, currently day #2 - 10 days of intravenous (IV) Bactrim IMPRESSION: 1. Respiratory failure with interstitial infiltrates, suspicious of pneumocystis pneumonia (PCP) based on elevated (1-3)-Xnow-N-Akjbrq, as he has received so far 10 days of IV Bactrim, switched to oral Mepron due to medication side effect. Repeat (1-3)-Vjmo-E-Xveihz was ordered on 10/26/2018 and is pending. 2. Hyponatremia, most likely a combination of medication, Bactrim, respiratory problem, and diuresis. PLAN: Continue Mepron. His dose of 750 mg by mouth twice a day along with prednisone for a total of 21 days. Probably, the patient will benefit from remaining on PCP prophylaxis. If he needs continued chemotherapy for his lymphoma, as he is at a higher risk of recurrence, I would not discontinue PCP prophylaxis. Follow up on (1-3)-Nktm-G-Ijwsey that is still pending and Cryptococcus antigen. I will not be available next week.
[2018-10-27] MEDS: METOPROLOL SUCC *XL* 12.5MG PER 1/2 TAB (TopROL *XL*) PO SCH (20:48)
--- NOTE | 2018-10-27 21:47 | IPN ---
DATE: 10/25/2018 Mr. Cabrera continues to be very short of breath. He states he is anxious now that he is never going to get better. He has had no fever or chills. No nausea, vomiting, or diarrhea. Lower extremity edema is slightly better since he was started on compression stockings. MEDICATIONS - voriconazole 300 mg by mouth twice a day started on October 24, currently day #2 - Bactrim to 375 mg intravenous (IV) every 6 hours, currently day number 12 - prednisone 30 mg by mouth twice a day - Lasix was increased to 60 mg by mouth twice a day. PHYSICAL EXAMINATION: Temperature is 97.4, pulse 82, respirations 22, blood pressure 121/68, oxygen saturation 93% on 5 liters nasal cannula. HEART: Normal S1, S2. No murmurs. LUNGS: Diminished breath sounds at bases with few wet crackles at one-third way up bilaterally. ABDOMEN: Soft, nontender. No hepatosplenomegaly. EXTREMITIES: Pitting edema 1+. Oropharynx is clear with no lesions. No thrush. LABORATORY DATA: White count 13.2, hemoglobin 10.9, hematocrit 34.1, platelets 93, 96% neutrophils, 2% bands, 1% lymphocytes. Sodium 126, potassium 5.2, chloride 85, bicarbonate 31, BUN 17, creatinine 0.74, glucose 87, calcium 8.3. AST 44, ALT 28, alkaline phosphatase 117, total protein 5.5, albumin 3.1. Cytology on October 24 showed reactive bronchial cells with pulmonary macrophage and yeast forms in a background of proteinaceous debris. No PCP was seen. IMPRESSION: 1. Severe hypoxemia with pulmonary infiltrates. Differential includes pneumocystis pneumonia (PCP) versus fungal pneumonia versus lymphoma. The patient has been on Bactrim for the past 13 days with minimal improvement along with steroids. Cryptococcus Histoplasma antigen are pending. Repeated beta-1,3D glucan will be sent today. Continue with IV Bactrim today. If the patient continues to have worsening hyponatremia and hyperkalemia, he could be switched to dapsone and clindamycin, which would be a better regimen than Mepron, which is used for mild to moderate PCP. 2. Lymphoma. Has received five cycles of R-CHOP. Doxorubicin can cause cardiomyopathy, and therefore repeat echocardiogram has been ordered, the results of which are pending. 3. Fluid overload. His dose of diuresis has been increased by Dr. Woods. PLAN: Case discussed with Dr. Cruz. Another possibility to obtain a diagnosis would be to get a CT-guided biopsy that she would help rule out infectious versus malignancy. Dr. Cruz will discuss that with the patient tomorrow, as there is still a risk of pneumothorax. G6PD level was obtained in case dapsone needs to be started, as it can cause hemolytic anemia.
--- NOTE | 2018-10-27 22:57 | ECGEPIP ---
[place] Test Date: 2018-10-24 Pat Name: PAUL SMART Department: Room: [place] [address] Gender: Male Therapeutic Consultant: TWILA : 1955 Requested By: TOM Dunbar Order Number: [id number] Reading MD: Mukesh Stephenson Measurements Intervals [place] Rate: 77 P: 29 GA: 193 QRS: QRSD: 146 T: 19 QT: 431 QTc: 488 Interpretive Statements SINUS RHYTHM RIGHT BUNDLE BRANCH BLOCK No remarkable changes but now slower heart rate Electronically Signed on 10-27-2018 22:56:58 EDT by Mukesh Stephenson
--- NOTE | 2018-10-27 22:59 | ECGEPIP ---
[facility] Test Date: 2018-10-25 Pat Name: PAUL SMART Department: Room: [place] [address] Gender: Male Shipfitter: TWILA : 1955 Requested By: TOM Dunbar Order Number: [id number] Reading MD: Mukesh Stephenson Measurements Intervals [place] Rate: 71 P: RI: 180 QRS: 27 QRSD: 138 T: 28 QT: 435 QTc: 473 Interpretive Statements SINUS RHYTHM WITH OCCASIONAL SUPRAVENTRICULAR PREMATURE COMPLEXES INDETERMINATE AXIS RIGHT BUNDLE BRANCH BLOCK COMPARED TO THE LAST 3 TRACINGS IN THE SYSTEM IN 2019, NO SIGNIFICANT CHANGES Electronically Signed on 10-27-2018 22:59:19 EDT by Mukesh Stephenson
--- NOTE | 2018-10-27 23:52 | ECGEPIP ---
[facility] Test Date: 2018-10-26 Pat Name: PAUL SMART Department: Room: [place] [address] Gender: Male Torch Straightener And Heater: PRABHA : 1955 Requested By: TOM Dunbar Order Number: [id number] Reading MD: Mukesh Stephensno Measurements Intervals [place] Rate: 73 P: 10 OR: 201 QRS: 14 QRSD: 143 T: 24 QT: 425 QTc: 469 Interpretive Statements SINUS RHYTHM INDETERMINATE AXIS RIGHT BUNDLE BRANCH BLOCK PRIOR TRACING ON 10/25/2018 AT 6:42 A.M., PACS WERE NOTED OTHERWISE NO SIGNIFICANT CHANGES Electronically Signed on 10-27-2018 23:52:07 EDT by Mukesh Stephenson
[2018-10-28] VITALS (11 sets, daily range): BP systolic 109–146; BP diastolic 67–83; O2SAT 90–98
[2018-10-28 00:11] LABS: G6PD2 4.07 x10E6/uL (4.14-5.80); G6PD3 384 (146-376)
[2018-10-28] MEDS ORDERED: D5W 250 ML IV ONE (00:15)
[2018-10-28] MEDS: IPRATROPIUM 0.5MG/ALBUTEROL 2.5MG INH SOL UD 3ML (DUONEB)(J7620) NEB SCH ×4 (01:06→19:44)
[2018-10-28 03:13] LABS: HEMATOCRIT 32.9 % (42.0-52.0); HEMOGLOBIN 10.5 g/dl (13.5-17.5); MEAN CORPUSCULAR HEMOGLOBIN 26.6 pg (27.0-33.0); MEAN CORPUSCULAR HGB CONC 31.9 g/dl (32.0-36.5); MEAN CORPUSCULAR VOLUME 83.5 fl (80.0-96.0); RED BLOOD COUNT 3.94 10^6/uL (4.30-6.10)
[2018-10-28 03:14] LABS: PLATELET COUNT, AUTOMATED 88 10^3/uL (150-450)
[2018-10-28 03:36] LABS: ALBUMIN 2.9 GM/DL (3.2-5.2); ALT/SGPT 26 U/L (12-78); BILIRUBIN,TOTAL 0.3 MG/DL (0.2-1.0); BLOOD UREA NITROGEN 20 MG/DL (7-18); CALCIUM LEVEL 8.4 MG/DL (8.8-10.2); CARBON DIOXIDE LEVEL 33 MEQ/L (21-32); CHLORIDE LEVEL 91 MEQ/L (98-107); CREATININE FOR GFR 0.59 MG/DL (0.70-1.30); GLOMERULAR FILTRATION RATE > 60.0 (>49); GLUCOSE, FASTING 106 MG/DL (70-100); POTASSIUM SERUM 4.3 MEQ/L (3.5-5.1); SODIUM LEVEL 129 MEQ/L (136-145); TOTAL PROTEIN 5.5 GM/DL (6.4-8.2)
[2018-10-28] MEDS: SLF 3 ML SYR IV SCH ×3 (06:53→21:03)
[2018-10-28] MEDS: VORICONAZOLE 200MG TABLET (VFEND) PO SCH ×2 (08:57→21:02)
[2018-10-28] MEDS: OMEPRAZOLE 20 MG CAP PO SCH (08:58)
[2018-10-28] MEDS: predniSONE 20 MG TAB PO SCH ×2 (08:58→21:03)
[2018-10-28] MEDS: ATOVAQUONE SUSP 750MG/5ML 210 ML BTL PO SCH ×2 (08:58→21:02)
[2018-10-28] MEDS: ENOXAPARIN 40 MG/0.4 ML SYRINGE (J1650) SC SCH (09:00)
--- NOTE | 2018-10-28 09:50 | IPNPDOC ---
Subjective Date Seen The patient was seen on 10/28/18. Subjective Chief Complaint/HPI able to mobilize some phlegm, feels his strength is slightly better but not ready for PT Constitutional: Denies: Chills Skin: Denies: Rash Pulmonary: Reports: Cough Cardiovascular: Denies: Chest Pain, Palpitations Gastrointestinal: Denies: Nausea, Abdominal Pain Hematologic: Denies: Bruising Psych: Reports: Mood Normal (seems more hopeful today) Objective Physical Examination General Exam: Positive: Alert, Cooperative, No Acute Distress Eye Exam: Positive: PERRLA Neck Exam: Negative: thyromegaly Chest Exam: Positive: Rales (rales noted, no wheezes), Diminished (diffusely d iminished with reduced air movement.), Other; Negative: Clear to auscultation, Rhonchi, Wheezing Heart Exam: Positive: Rate Normal, Regular Rhythm, Normal S1, Normal S2; Negative: Tachycardic, Irregular Rhythm Telemetry: Positive: Atrial fibrillation Abdomen Exam: Positive: Normal bowel sounds, Soft; Negative: Tenderness Extremity Exam: Positive: Edema (1+ edema) Skin Exam: Positive: Nl turgor and temperature Neuro Exam: Positive: Normal Speech Psych Exam: Positive: Mood NL, Anxiety (mildly) Assessment /Plan Problems (1) Acute respiratory failure with hypoxemia Status: Acute Response to Treatment: Stable, Improving Discussed With: Nurse, Patient Problem Specific Plan: Monitor Clinically, Repeat Labs Problem Text: 10/28: subjectively improving. on voriconazole and atovaquone. 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 CXR looks a bit better. 10/25: voriconazole added yesterday to Multaq stopped; sxt/tmp dose optimized to 20mg/kg 10/24: ct done today. report says similar but slightly better to previous ct. await Dr. Cruz opinion about the study. 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 Plan CT tomorrow and possible bronch. He has told me that he is not enthusiastic about potentially being on a ventilator, but accepts that risk. 10/21 -- patient remains on Bactrim. If not improved by Wednesday, which is looking likely, plan bronchoscopy. Oxygen demands remain high, and patient is desatting with minimal exertion. Patient voices desire for full code status. D7 empiric Bactrim for PJP, s/p Zosyn x 6 days - stoppped by ID 10/20 Pulmonary consult pending due to severe hypoxemia with minimal exertion Unable to give sputum for Culture (No productive sputum) 10/19/18: s/p ID consult. Duonebs added q 6 hrs. DC solu-medrol. Start Prednisone 60 mg po bid. 10/18/18: repeat bl cxs and fungal smear remain pending. Patient continues with dyspnea. CT Chest competed and demonstrates improvement. see report below. 10/17/18 fungal smear/culture and DFA staining obtained (ordered 10/15!) 10/17 CT chest: The diffuse bilateral interstitial and alveolar infiltrates identified on 09/23/2018 have decreased. The bilateral pleural effusions have decreased. The extensive mediastinal lymph node enlargement identified on 05/19/2089, has resolved. 10/17/18: patient states he feels significantly better. Continues to require 5 LNC. HOLD on diuresing due to soft BP. HR remains stable. Bl cx and sputum cx pending. 10/16: LDH elevated above baseline elevation from lymphoma which can be seen c PJP. Sulfa/TMP started yesterday. Hypoxic with minimal exertion. Diuresis has diminished since change to po lasix. will repeat BNP, may need IV lasix again. 09/28/18 Fungitell >500-Ddx: PJP, Lise spp, Aspergillus less likely given 09/24 A flavus/fumigatus, niger Ab -/galacto Ag - (2) Acute on chronic diastolic (congestive) heart failure Status: Acute Response to Treatment: Stable, Improving Problem Specific Plan: Monitor Clinically Problem Text: 10/28: no lasix for now. 10/27: due to rapidly worsening hyponatremia, furosemide has been held. 10/26: lasix increased to 60 bid overnight, Dr. Cruz ordered 100mg IV lasix dose this am. 10/23 -- albumin and pro-BNP ordered for tomorrow; renal function has remained stable, though there is some concern that his malaise today may indicate overdiuresis. 10/22 -- I&Os show patient consistently net negative. 10/21 - Getting Lasix 40 BID with fair diuresis per I + Os BP stable 10/17/18: HOLD on diuresing due to soft BP. HR remains stable. 10/16: CXR looks a little wetter, BNP pending; may need increase laxix CXR in am, continue lasix for now. Last ECHO 09/18 with nl EF< Gr 1 diastolic dysfunction. Cont with Lasix IV, change diet to low sodium. Monitor I & Os. (3) Large B-cell lymphoma Status: Acute Problem Specific Plan: Monitor Clinically Problem Text: 10/16: may need to be rescheduled depending. Follows with [facility] as outpt, scheduled for final chemo 10/21. (4) Hyponatremia Status: Chronic Response to Treatment: Stable, Improving Problem Text: 10/28: hypertonic saline infusion stopped for now but sodium slightly lower than it had been. being managed by Dr Pedro. 10/27: after IV lasix yesterday, repeat sodium showed quick drop to 120 accompanied by [employer] symptoms of diplopia and confusion and hallucinations. Dr. Miri Pedro consulted and patient moved to ICU to administer 3% NS, being given through port. [employer] symptoms have resolved although weakness remains. and 10/26: sodium down to 124 today. will restrict hypotonic fluids, K now normal. possible side effect of SXT/TMP. 10/25: slightly worse sodium and persistent hyperkalemia. this combination can be side effect of SXT/TMP. Has sent communication to Dr. 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 his sxt/tmp is in water, so asked pharmacy to reduce volume that his antibiotic is in. not stable in NS, only D5W. (5) Gram-positive cocci in clusters Status: Resolved Response to Treatment: Stable Problem Text: 10/19/18: repeat bl. cx negative. 10/17 BCX2 P 10/13 BCX1/1 + for micrococcus. most likley contaminant. will repeat BCX (6) Pancytopenia due to chemotherapy Status: Resolved Problem Text: s/p Nulasta 10/14 (7) Paroxysmal atrial fibrillation Status: Chronic Response to Treatment: Stable Problem Text: 10/28: rate control remains adequate with beta braden. 10/25: Multaq stopped due to interaction with voriconazole after discussion with Dr. Arellano. rate controlled on Metoprolol Plan/VTE VTE Prophylaxis Ordered?: Yes (Lovenox) VS, I&O, 24H, Fishbone Vital Signs/I&O Vital Signs Date Time Temp Pulse Resp B/P (MAP) Pulse Ox O2 Delivery O2 Flow Rate FiO2 10/28/18 08:00 97.6 96 24 120/75 (90) 88 6.0 10/28/18 02:00 Nasal Cannula I&O- Last 24 Hours up to 6 AM 10/28/18 06:00 Intake Total 1195 ml Output Total 880 ml Balance 315 ml Laboratory Data 24H LABS Laboratory Tests 2 10/27/18 10:54: Osmolality 258L 10/28/18 03:02: Nucleated Red Blood Cells % (auto) 0.0, Anion Gap 5L, Glomerular Filtration Rate > 60.0, Blood Urea Nitrogen 20H, Creatinine 0.59L, Sodium Level 129L, Potassium Level 4.3, Chloride Level 91L, Carbon Dioxide Level 33H, Calcium Level 8.4L, Aspartate Amino Transf (AST/SGOT) 38H, Alanine Aminotransferase (ALT/SGPT) 26, Alkaline Phosphatase 123H, Total Bilirubin 0.3, Total Protein 5.5L, Albumin 2.9L, Albumin/Globulin Ratio 1.12 CBC/BMP Laboratory Tests 10/27/18 10:54 10/27/18 14:47 10/27/18 18:44 10/27/18 23:04 10/28/18 03:02 Red Blood Count 3.94 L, Mean Corpuscular Volume 83.5, Mean Corpuscular Hemoglobin 26.6 L, Mean Corpuscular Hemoglobin Concent 31.9 L, Red Cell Distribution Width 17.2 H, Calcium Level 8.4 L, Aspartate Amino Transf (AST/SGOT) 38 H, Alanine Aminotransferase (ALT/SGPT) 26, Alkaline Phosphatase 123 H, Total Bilirubin 0.3, Total Protein 5.5 L, Albumin 2.9 L Justus Woods MD Oct 28, 2018 09:50
--- NOTE | 2018-10-28 10:29 | CCN ---
DATE: 10/28/2018 The patient was seen and examined this morning during bedside rounds. He reports his breathing has improved slightly and his cough has also improved. He was able to expectorate a thick, soliz, mucus plug for a sputum sample earlier today. He otherwise denies any wheezing. He has not had any chest pain. He does have shortness of breath with exertion and he will desaturate with minimal exertion. He has been weaned down to 6 liters per minute nasal cannula currently. The patient also continues to complain of some weakness in his lower extremities. The patient's sodium has improved. He was discontinued from hypertonic saline overnight. He is still having some visual hallucinations however, they do appear improved. He is alert and oriented and he is aware that these are hallucinations as well. He denies any nausea or vomiting. He has been having regular bowel movements, which were loose and not diarrhea, nonbloody. No fevers or chills. PHYSICAL EXAMINATION: Temperature 97.6, pulse 96, respirations 24, blood pressure 120/75, oxygen 88- 92% on 6 liters per minute. Input: 1 liter, output: 935 mL GENERAL: The patient is awake and alert, oriented. He does not appear to be any acute respiratory distress and is able to speak in complete sentences. HEENT: Normocephalic, atraumatic. Pupils are equal, round and reactive to light. He has some facial asymmetry. NECK: Supple. There is no jugular venous distention (JVD). No palpable adenopathy. He has a Port-A-Cath in the right subclavian region. CARDIOVASCULAR: Regular rate and rhythm. Normal S1, S2. No murmurs appreciated. PULMONARY: Diffuse crackles bilaterally posteriorly up to the mid chest. There is no wheezing noted. No rhonchi. ABDOMEN: Soft, nontender, nondistended. EXTREMITIES: Lower extremities: There is no lower extremity edema noted bilaterally. LABS: WBC 12.0, hemoglobin 16.5, platelets 88. Chemistry: Sodium 129, potassium 4.3, chloride 91, bicarb 33, BUN 20, creatinine 0.59, glucose 106, AST 38, ALT 26, alk phos 123, albumin 2.9, BNP yesterday of 1193. Microbiology: Aspergillus antibodies were all negative. Previous Jvry-V-Iorhiz was positive galactomannan negative. A repeat [id number]-[id number] is still pending. Cryptococcal antigen was negative. Urine Histoplasma antigen is negative. ASSESSMENT/PLAN: The patient is a 63-year-old male with a history of large B-cell lymphoma status post R-CHOP, history of diastolic congestive heart failure (CHF), diabetes, paroxysmal atrial fibrillation, who had previously been admitted recently in August with possible PNA versus pneumonitis versus pulmonary edema. The patient was treated with antibiotics, Lasix and prednisone and was discharged on prednisone. He presented again with increasing shortness of breath. The patient was initially started on treatment for bacterial pneumonia. He completed 6 days of Zosyn. His procalcitonin however was negative. Given his immunosuppressed state, there was concern for possible pneumocystis pneumonia (PCP) and he was started on Bactrim initially and high doses of prednisone. The patient was also of being diuresed with Lasix with concern for possible pulmonary edema as a cause for his acute hypoxemic respiratory failure. The patient's initial sputum cytology did not show any evidence of fungal organisms. His gpyy-I-Cywsya was positive on his previous admission. However, can also be falsely elevated with certain antibiotics such as Zosyn and meropenem. His galactomannan was negative on this admission and his repeat [id number]-P-Wzxyke is still pending. His Aspergillus testing was also negative. The patient was started however on voriconazole for concern of possible fungal pneumonia despite the negative serologies. The patient feels there has been some improvement in his breathing and cough with the voriconazole. He has a repeat sputum cytology pending. The patient's hospital course was then complicated by symptomatic hyponatremia which is likely secondary to SIADH. His Bactrim was also discontinued and he was changed to Atovaquone for his possible PCP pneumonia. The patient was started on hypertonic saline by renal, with improvement in his sodium. He continues to have some visual hallucinations, however, despite having a sodium of 129 this morning. Hypoxemic respiratory failure: The patient's recent CT continues to show evidence of ground-glass opacities bilaterally and intralobular septal thickening as well as bilateral pleural effusions. Does not appear significantly changed compared to his previous CT. The differential is still broad at this time. Pulmonary edema is still possible especially with increased BNP. Infectious etiologies given his immunosuppressed state is still possible. PCP pneumonia was possibly in the differential however, the patient has been on treatment with steroids and Bactrim and then Atovaquone for possible PCP pneumonia and had not been having a significant improvement in his symptoms. He was started on voriconazole for possible fungal pneumonia, although his serologies have been negative and this is less likely. Acute pneumonitis is less likely as his symptoms progressed on prednisone and he did not respond appropriately to high dose steroids. - Would continue Atovaquone to complete treatment for PCP prophylaxis for 21-day course. Would continue to taper his prednisone. He is on 20 mg twice a day, currently and will taper down to 30 mg tomorrow - Continue with voriconazole for now pending his followup [id number] and his repeat sputum cultures. - The patient is off of IV fluids currently and he appears euvolemic. However, there is still some concern that some of the findings on imaging is secondary to pulmonary edema especially given his increased BNP. Therefore, would closely monitor his volume status in his ins and outs and consider diuresis as per renal if he the patient becomes more net positive or with decreasing urine output. 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 He will need physical therapy and will continue to attempt to taper down his steroids. Altered mental status: likely multifactorial, initially hallucinations may have been in setting of his hyponatremia however he continues to have visual hallucinations with improved sodium. May have component of ICU delirium now. Patient is still oriented, is not agitated. Would continue to monitor. Deep venous thrombosis (DVT) prophylaxis: Lovenox Gastrointestinal (GI) prophylaxis: Omeprazole. CODE STATUS: FULL CODE. Total critical care time spent not including any procedures approximately 45 minutes. MTDD
[2018-10-28] MEDS ORDERED: FUROSEMIDE 40 MG/4 ML VIAL (J1940) IV ONE (12:30)
[2018-10-28] MEDS ORDERED: SODIUM CHLORIDE 0.9% INJ 10 ML SYR IV PRN (16:30)
[2018-10-28] MEDS: SODIUM CHLORIDE 1 GM TAB PO SCH ×2 (17:57→21:03)
[2018-10-28] MEDS: METOPROLOL SUCC *XL* 12.5MG PER 1/2 TAB (TopROL *XL*) PO SCH (21:03)
[2018-10-29] VITALS (9 sets, daily range): BP systolic 111–136; BP diastolic 67–81; O2SAT 90–93
[2018-10-29] MEDS: IPRATROPIUM 0.5MG/ALBUTEROL 2.5MG INH SOL UD 3ML (DUONEB)(J7620) NEB SCH ×4 (01:41→20:24)
[2018-10-29 04:59] LABS: HEMATOCRIT 33.4 % (42.0-52.0); HEMOGLOBIN 10.3 g/dl (13.5-17.5); MEAN CORPUSCULAR HEMOGLOBIN 26.7 pg (27.0-33.0); MEAN CORPUSCULAR HGB CONC 30.8 g/dl (32.0-36.5); MEAN CORPUSCULAR VOLUME 86.5 fl (80.0-96.0); RED BLOOD COUNT 3.86 10^6/uL (4.30-6.10); WHITE BLOOD COUNT 8.6 10^3/uL (4.0-10.0)
[2018-10-29 05:09] LABS: PLATELET COUNT, AUTOMATED 61 10^3/uL (150-450)
[2018-10-29 05:21] LABS: ALBUMIN 2.7 GM/DL (3.2-5.2); ALT/SGPT 25 U/L (12-78); BILIRUBIN,TOTAL 0.3 MG/DL (0.2-1.0); BLOOD UREA NITROGEN 13 MG/DL (7-18); CALCIUM LEVEL 7.9 MG/DL (8.8-10.2); CARBON DIOXIDE LEVEL 36 MEQ/L (21-32); CHLORIDE LEVEL 91 MEQ/L (98-107); GLOMERULAR FILTRATION RATE > 60.0 (>49); GLUCOSE, FASTING 148 MG/DL (70-100); POTASSIUM SERUM 4.4 MEQ/L (3.5-5.1); SODIUM LEVEL 132 MEQ/L (136-145); TOTAL PROTEIN 5.5 GM/DL (6.4-8.2)
[2018-10-29] MEDS: SLF 3 ML SYR IV SCH ×3 (07:25→22:21)
[2018-10-29] MEDS: ENOXAPARIN 40 MG/0.4 ML SYRINGE (J1650) SC SCH (09:00)
[2018-10-29] MEDS ORDERED: SODIUM CHLORIDE 0.9% INJ 10 ML SYR IV SCH (09:00)
[2018-10-29] MEDS: FUROSEMIDE 20 MG/2 ML VIAL (J1940) IV SCH ×2 (09:25→16:37)
[2018-10-29] MEDS: SODIUM CHLORIDE 1 GM TAB PO SCH ×3 (09:25→20:11)
[2018-10-29] MEDS: ATOVAQUONE SUSP 750MG/5ML 210 ML BTL PO SCH ×2 (09:25→20:11)
[2018-10-29] MEDS: VORICONAZOLE 200MG TABLET (VFEND) PO SCH ×2 (09:26→20:12)
[2018-10-29] MEDS: predniSONE 10 MG TAB PO SCH (09:26)
[2018-10-29] MEDS: OMEPRAZOLE 20 MG CAP PO SCH (09:26)
[2018-10-29 10:35] LABS: OSMOLALITY URINE 349 MOSM/KG (500-800)
[2018-10-29 10:50] LABS: SODIUM,RANDOM URINE 109 MEQ/L
[2018-10-29 12:33] LABS: BLOOD UREA NITROGEN 16 MG/DL (7-18); CALCIUM LEVEL 8.3 MG/DL (8.8-10.2); CARBON DIOXIDE LEVEL 34 MEQ/L (21-32); CHLORIDE LEVEL 90 MEQ/L (98-107); CREATININE FOR GFR 0.49 MG/DL (0.70-1.30); GLOMERULAR FILTRATION RATE > 60.0 (>49); GLUCOSE, FASTING 156 MG/DL (70-100); POTASSIUM SERUM 4.6 MEQ/L (3.5-5.1); SODIUM LEVEL 131 MEQ/L (136-145)
[2018-10-29 14:13] LABS: CRYPTOCOCCUS ANTIGEN SER Negative (Negative)
--- NOTE | 2018-10-29 15:01 | IPN ---
DATE OF SERVICE: 10/29/2018 SUBJECTIVE: The patient was seen and examined at the bedside today morning in the intensive care unit (ICU). He is afebrile, hemodynamically stable. Sodium level continues to improve. Sodium is 132 today morning. He still continues to be on oxygen. His oxygen (O2) requirement is 6L per minute. OBJECTIVE: Vital signs: Temperature is 96.8 degrees Fahrenheit, blood pressure 129/81, pulse is 104, respiratory rate of 20, saturating 91% on 8 liters via nasal cannula. Intake and output: Urine output recorded is of 1.2 liters yesterday, 245 mL so far today since overnight. Weight in the bed scale is 72.4 kg. PHYSICAL EXAMINATION: General: The patient is awake, alert, oriented times three, sitting up, in no apparent distress. Head and neck examination: Pupils are equally round and reactive to light. Mucous membranes are moist. Neck is supple. He has a right internal jugular (vein) (IJ) Port-A-Cath. Cardiovascular: S1, S2, regular rate. Trace edema of the bilateral lower extremities. Respiratory: Mild respiratory crackles bilaterally. Otherwise, bilateral equal air entry. Abdomen is soft. Positive bowel sounds. Nontender. No organomegaly. Genitourinary: He has an indwelling Bowers catheter. Urine in the bag is slightly blood-tinged. Central nervous system (TRANSFER AGENT): No focal deficit. Power is 5/5 in all extremities. LABORATORY REVIEW: Complete blood count (CBC) showed a WBC of 8.6, hemoglobin 10.3, platelets are 61. Basic metabolic profile (BMP) showed sodium 132, potassium 4.4, chloride 91, bicarbonate 36, BUN 13, creatinine is 0.4, serum osmolality is 273, albumin is 2.7. CURRENT INPATIENT MEDICATIONS: The patient's medications were all reviewed by me. The patient was given a dose of Lasix 40 mg intravenous (IV) yesterday. He is currently on sodium chloride tablet, 1 gram by mouth three times a day. I have started the patient on Lasix 20 mg IV twice a day. ASSESSMENT AND PLAN: 1. Hyponatremia. The patient's hyponatremia continues to improve. He was started on salt tablets yesterday. He was also given a dose of Lasix yesterday. Sodium is 132 now. I am starting the patient on low dose of Lasix 20 mg IV twice a day. Continue current dose of salt tablets, 1 gram by mouth three times a day. 2. Hypoxemia. Multiple etiologies. Possible pulmonary edema versus interstitial pneumonia. The patient initially was being treated for PCP pneumonia. However, his symptoms do not improve. He is currently being given voriconazole 200 mg by mouth twice a day. His white cell count is improving. He is also on atovaquone 750 mg by mouth twice a day. Continue the management as per infectious disease (ID) recommendation, as per pulmonary team. Volume status is significantly better. As mentioned above, he is getting a low dose of Lasix if needed. I would increase the Lasix dose tomorrow. DISPOSITION: The patient is stable from nephrology standpoint to be transferred out of the ICU. MTDD
--- NOTE | 2018-10-29 15:02 | CCN ---
DATE: 10/29/2018 The patient was seen and examined this morning during bedside rounds. Overnight, the patient did have episodes of desaturation requiring increase in his nasal cannula oxygen to 8 liters per minute. This morning his oxygen sat appears improved and he was is able to be weaned down to 4 liters per minute nasal cannula. He does have episodes of confusion and some mild agitation overnight, but he was redirectable and did not require any medications for sedation. This morning, he continues report that his breathing has improved slightly. His cough has also improved and he denies any chest pains. He has no fevers or chills. No nausea or vomiting. Has not reported any visual hallucinations this morning. PHYSICAL EXAMINATION: Temperature 96.8, pulse 104, respirations 22, blood pressure 129/81, oxygen saturation 94% on 4 liters nasal cannula. In 1.5, out 1.2 liters, positive 355 mL. General: The patient is awake and alert, is oriented times three. Does not appear to be in acute respiratory distress. Is able to speak in complete sentences. HEENT: Normocephalic, atraumatic. Pupils are equal, round, reactive to light. 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 Neck is supple. There is no obvious jugular venous distention (JVD). No palpable adenopathy. He has a Port-A-Cath in the right subclavian region. Cardiovascular is regular rate and rhythm. Normal S1, S2. No murmurs appreciated. Pulmonary: Bilateral crackles diffusely. No wheezing or rhonchi. Abdomen is soft, nontender, nondistended. Normal bowel sounds present. Extremities: No lower extremity edema noted bilaterally. LABORATORY DATA: WBC 8.6, hemoglobin 10.3, platelets 61. Chemistry: Sodium is 132, potassium 4.4, chloride is 91, bicarbonate 36, BUN 13, creatinine 0.40, glucose is 148. On serology, his [id number] was positive. His galactomannan is negative. ASSESSMENT AND PLAN: The patient is a 63-year-old male with a history of large B-cell lymphoma status post R-CHOP, diastolic congestive heart failure (CHF), diabetes, paroxysmal atrial fibrillation who was recently admitted in August with pneumonia versus pneumonitis versus pulmonary edema. He was treated with antibiotics, Lasix, and prednisone and was discharged home on prednisone. He presented with increasing shortness of breath and found to have worsening bilateral ground-glass opacities with some intralobular septal thickening and small bilateral pleural effusions. The patient was started on treatment for possible bacterial pneumonia with Zosyn. However, his procalcitonin was negative and he finished the course of 6 days of antibiotics. He was also started on Bactrim initially for possible PCP pneumonia and the high doses of prednisone. The patient was also being diuresed with Lasix with concern for possible pulmonary edema given his increased brain natriuretic peptide (BNP). He continued to have, however worsening acute hypoxemic respiratory failure and was requiring high-flow nasal cannula oxygen supplementation. His hospital course was then complicated by symptomatic hyponatremia likely secondary to syndrome of inappropriate secretion of antidiuretic hormone (SIADH) possibly in the setting of his of Bactrim. Bactrim was discontinued and the patient was changed to atovaquone instead for his PCP pneumonia. Given his persistent hypoxemic respiratory failure and his immunocompromised state, he was also started on voriconazole for possible fungal pneumonia. However, he had negative Aspergillus testing and his galactomannan was also negative. His repeat [id number] is positive, however, this can be falsely elevated in the setting of certain antibiotics including Zosyn. Acute hypoxemic respiratory failure possibly secondary to atypical pneumonia such as a PCP pneumonia given his immunocompromised state versus a fungal pneumonia although less likely given the negative serologies and negative galactomannan. His positive fvyi-P-[id number] may be falsely elevated in the setting of some of his previous antibiotics. Pulmonary edema is still likely given his increased BNP and the evidence of bilateral pleural effusions. His oxygenation does appear to be improving with diuresis. Acute pneumonitis is also less likely as his symptoms progressed well on prednisone and he did not respond appropriately to the high dose steroids. - Continue with Lasix for diuresis with close monitoring of his sodium as per renal. - Continue to monitor his ins and outs and his electrolytes and replete as needed. - Continue with atovaquone to complete his treatment for PCP for a 21-day course. - Continue tapering his prednisone. He is on 30 mg today. Will taper him to 20 mg tomorrow and will continue that to complete the continuous complete and put continue and will continue with 20 mg. - Continue with voriconazole for now pending his followup sputum cytology. If no evidence of any fungal organisms, will likely discontinue his voriconazole depending also on ID. - Continue to wean down his nasal cannula oxygen supplementation as tolerated to maintain oxygen sat above 88% Altered mental status with some myopathy. The patient's altered mental status likely multifactorial in the setting of his hyponatremia and now possible component of ICU delirium. - Will continue to monitor his mental status. He appears to be moving all extremities equally and does not have any focal deficits. 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 - If the patient has more focal symptoms, would consider imaging of his brain with the head CT versus MRI. Central pontine demyelination is less likely as he did not appear to have overly rapid correction of his sodium and it is too soon for this to be presenting; - The patient likely has a component of steroid-induced myopathy given his high dose of steroids. He will need physical therapy and will continue to taper down his steroids. Thrombocytopenia likely multifactorial in the setting of his medications and acute illness. Will continue to monitor his platelets. Continue with Lovenox for now. Will hold if his platelets are below 50,000. Deep venous thrombosis (DVT) prophylaxis: Lovenox. Gastrointestinal (GI) prophylaxis: Omeprazole. Code status: FULL CODE. Total critical care time spent not including any procedures approximately 35 minutes.
[2018-10-29] MEDS: METOPROLOL SUCC *XL* 12.5MG PER 1/2 TAB (TopROL *XL*) PO SCH (20:13)
--- NOTE | 2018-10-29 20:51 | IPNPDOC ---
Subjective Date Seen The patient was seen on 10/29/18. Objective Physical Examination General Exam: Positive: Alert, Cooperative, No Acute Distress Eye Exam: Positive: PERRLA Neck Exam: Negative: thyromegaly Chest Exam: Positive: Rales (rales noted, no wheezes), Diminished (diffusely diminished with reduced air movement.), Other; Negative: Clear to auscultation, Rhonchi, Wheezing Heart Exam: Positive: Rate Normal, Regular Rhythm, Normal S1, Normal S2; Negative: Tachycardic, Irregular Rhythm Telemetry: Positive: Atrial fibrillation Abdomen Exam: Positive: Normal bowel sounds, Soft; Negative: Tenderness Extremity Exam: Positive: Edema (1+ edema) Skin Exam: Positive: Nl turgor and temperature Neuro Exam: Positive: Normal Speech Psych Exam: Positive: Mood NL, Anxiety (mildly) Assessment /Plan Problems (1) Acute respiratory failure with hypoxemia Status: Acute Response to Treatment: Stable, Improving Discussed With: Nurse, Patient Problem Specific Plan: Monitor Clinically, Repeat Labs Problem Text: 10/28: subjectively improving. on voriconazole and atovaquone. 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 CXR looks a bit better. 10/25: voriconazole added yesterday to Multaq stopped; sxt/tmp dose optimized to 20mg/kg 10/24: ct done today. report says similar but slightly better to previous ct. purnima it Dr. Cruz opinion about the study. 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 Plan CT tomorrow and possible bronch. He has told me that he is not enthusiastic about potentially being on a ventilator, but accepts that risk. 10/21 -- patient remains on Bactrim. If not improved by Wednesday, which is looking likely, plan bronchoscopy. Oxygen demands remain high, and patient is desatting with minimal exertion. Patient voices desire for full code status. D7 empiric Bactrim for PJP, s/p Zosyn x 6 days - stoppped by ID 10/20 Pulmonary consult pending due to severe hypoxemia with minimal exertion Unable to give sputum for Culture (No productive sputum) 10/19/18: s/p ID consult. Duonebs added q 6 hrs. DC solu-medrol. Start Prednisone 60 mg po bid. 10/18/18: repeat bl cxs and fungal smear remain pending. Patient continues with dyspnea. CT Chest competed and demonstrates improvement. see report below. 10/17/18 fungal smear/culture and DFA staining obtained (ordered 10/15!) 10/17 CT chest: The diffuse bilateral interstitial and alveolar infiltrates identified on 09/23/2018 have decreased. The bilateral pleural effusions have decreased. The extensive mediastinal lymph node enlargement identified on 05/19/2089, has resolved. 10/17/18: patient states he feels significantly better. Continues to require 5 LNC. HOLD on diuresing due to soft BP. HR remains stable. Bl cx and sputum cx pending. 10/16: LDH elevated above baseline elevation from lymphoma which can be seen c PJP. Sulfa/TMP started yesterday. Hypoxic with minimal exertion. Diuresis has diminished since change to po lasix. will repeat BNP, may need IV lasix again. 09/28/18 Fungitell >500-Ddx: PJP, Lise spp, Aspergillus less likely given 09/24 A flavus/fumigatus, niger Ab -/galacto Ag - (2) Acute on chronic diastolic (congestive) heart failure Status: Acute Response to Treatment: Stable, Improving Problem Specific Plan: Monitor Clinically Problem Text: 10/28: no lasix for now. 10/27: due to rapidly worsening hyponatremia, furosemide has been held. 10/26: lasix increased to 60 bid overnight, Dr. Cruz ordered 100mg IV lasix dose this am. 10/23 -- albumin and pro-BNP ordered for tomorrow; renal function has remained stable, though there is some concern that his malaise today may indicate overdiuresis. 10/22 -- I&Os show patient consistently net negative. 10/21 - Getting Lasix 40 BID with fair diuresis per I + Os BP stable 10/17/18: HOLD on diuresing due to soft BP. HR remains stable. 10/16: CXR looks a little wetter, BNP pending; may need increase laxix CXR in am, continue lasix for now. Last ECHO 09/18 with nl EF< Gr 1 diastolic dysfunction. Cont with Lasix IV, change diet to low sodium. Monitor I & Os. (3) Large B-cell lymphoma Status: Acute Problem Specific Plan: Monitor Clinically Problem Text: 10/16: may need to be rescheduled depending. Follows with [facility] as outpt, scheduled for final chemo 10/21. (4) Hyponatremia Status: Chronic Response to Treatment: Stable, Improving Problem Text: 10/28: hypertonic saline infusion stopped for now but sodium slightly lower than it had been. being managed by Dr Pedro. 10/27: after IV lasix yesterday, repeat sodium showed quick drop to 120 accompanied by ELECTRICAL ENGINEER symptoms of diplopia and confusion and hallucinations. Dr. Miri Pedro consulted and patient moved to ICU to administer 3% NS, being given through port. ELECTRICAL ENGINEER symptoms have resolved although weakness remains. and 10/26: sodium down to 124 today. will restrict hypotonic fluids, K now normal. possible side effect of SXT/TMP. 10/25: slightly worse sodium and persistent hyperkalemia. this combination can be side effect of SXT/TMP. Has sent communication to Dr. 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 his sxt/tmp is in water, so asked pharmacy to reduce volume that his antibiotic is in. not stable in NS, only D5W. (5) Gram-positive cocci in clusters Status: Resolved Response to Treatment: Stable Problem Text: 10/19/18: repeat bl. cx negative. 10/17 BCX2 P 10/13 BCX1/1 + for micrococcus. most likley contaminant. will repeat BCX (6) Pancytopenia due to chemotherapy Status: Resolved Problem Text: s/p Nulasta 10/14 (7) Paroxysmal atrial fibrillation Status: Chronic Response to Treatment: Stable Problem Text: 10/28: rate control remains adequate with beta braden. 10/25: Multaq stopped due to interaction with voriconazole after discussion with Dr. Arellano. rate controlled on Metoprolol Plan/VTE VTE Prophylaxis Ordered?: Yes (Lovenox) VS, I&O, 24H, Fishbone Vital Signs/I&O Vital Signs Date Time Temp Pulse Resp B/P (MAP) Pulse Ox O2 Delivery O2 Flow Rate FiO2 10/29/18 20:13 100 131/81 10/29/18 20:00 98.0 20 92 5.0 10/29/18 06:26 Nasal Cannula I&O- Last 24 Hours up to 6 AM 10/29/18 06:00 Intake Total 1440 ml Output Total 1115 ml Balance 325 ml Laboratory Data 24H LABS Laboratory Tests 2 10/29/18 04:43: Nucleated Red Blood Cells % (auto) 0.0, Immature Platelet Fraction 4.9, Anion Ga p 5L, Glomerular Filtration Rate > 60.0, Osmolality 273L, Blood Urea Nitrogen 13, Creatinine 0.40L, Sodium Level 132L, Potassium Level 4.4, Chloride Level 91L, Carbon Dioxide Level 36H, Calcium Level 7.9L, Aspartate Amino Transf (AST/SGOT) 28, Alanine Aminotransferase (ALT/SGPT) 25, Alkaline Phosphatase 111, Total Bilirubin 0.3, Total Protein 5.5L, Albumin 2.7L, Albumin/Globulin Ratio 0.96L 10/29/18 10:21: Urine Random Osmolality 349L, Urine Random Sodium 109 10/29/18 11:59: Anion Gap 7L, Glomerular Filtration Rate > 60.0, Blood Urea Nitrogen 16, Creat inine 0.49L, Sodium Level 131L, Potassium Level 4.6, Chloride Level 90L, Carbon Dioxide Level 34H, Calcium Level 8.3L CBC/BMP Laboratory Tests 10/29/18 00:38 10/29/18 04:43 Red Blood Count 3.86 L, Mean Corpuscular Volume 86.5, Mean Corpuscular Hemoglobin 26.7 L, Mean Corpuscular Hemoglobin Concent 30.8 L, Red Cell Distribution Width 17.0 H, Calcium Level 7.9 L, Aspartate Amino Transf (AST/SGOT) 28, Alanine Aminotransferase (ALT/SGPT) 25, Alkaline Phosphatase 111, Total Bilirubin 0.3, Total Protein 5.5 L, Albumin 2.7 L 10/29/18 08:44 10/29/18 11:59 Calcium Level 8.3 L Ramses Etienne MD Oct 29, 2018 20:51
[2018-10-30] VITALS (31 sets, daily range): BP systolic 100–148; BP diastolic 62–89; O2SAT 69–100
[2018-10-30] MEDS: IPRATROPIUM 0.5MG/ALBUTEROL 2.5MG INH SOL UD 3ML (DUONEB)(J7620) NEB SCH ×4 (01:08→20:21)
[2018-10-30 05:14] LABS: HEMATOCRIT 34.3 % (42.0-52.0); HEMOGLOBIN 10.7 g/dl (13.5-17.5); MEAN CORPUSCULAR HEMOGLOBIN 26.8 pg (27.0-33.0); MEAN CORPUSCULAR HGB CONC 31.2 g/dl (32.0-36.5); RED BLOOD COUNT 3.99 10^6/uL (4.30-6.10); WHITE BLOOD COUNT 6.7 10^3/uL (4.0-10.0)
[2018-10-30 05:17] LABS: PLATELET COUNT, AUTOMATED 77 10^3/uL (150-450)
[2018-10-30 05:41] LABS: ALBUMIN 2.8 GM/DL (3.2-5.2); ALT/SGPT 30 U/L (12-78); BILIRUBIN,TOTAL 0.5 MG/DL (0.2-1.0); BLOOD UREA NITROGEN 16 MG/DL (7-18); CALCIUM LEVEL 8.9 MG/DL (8.8-10.2); CARBON DIOXIDE LEVEL 36 MEQ/L (21-32); CHLORIDE LEVEL 93 MEQ/L (98-107); CREATININE FOR GFR 0.47 MG/DL (0.70-1.30); GLOMERULAR FILTRATION RATE > 60.0 (>49); GLUCOSE, FASTING 99 MG/DL (70-100); POTASSIUM SERUM 4.1 MEQ/L (3.5-5.1); SODIUM LEVEL 132 MEQ/L (136-145); TOTAL PROTEIN 6.1 GM/DL (6.4-8.2)
[2018-10-30] MEDS: SLF 3 ML SYR IV SCH ×3 (06:43→21:30)
[2018-10-30] MEDS: SODIUM CHLORIDE 1 GM TAB PO SCH ×3 (09:00→21:30)
[2018-10-30] MEDS: ENOXAPARIN 40 MG/0.4 ML SYRINGE (J1650) SC SCH (09:15)
[2018-10-30] MEDS: ATOVAQUONE SUSP 750MG/5ML 210 ML BTL PO SCH ×2 (09:15→21:27)
[2018-10-30] MEDS: OMEPRAZOLE 20 MG CAP PO SCH (09:16)
[2018-10-30] MEDS: predniSONE 10 MG TAB PO SCH (09:16)
[2018-10-30] MEDS: FUROSEMIDE 20 MG/2 ML VIAL (J1940) IV SCH ×2 (09:16→16:33)
[2018-10-30] MEDS: VORICONAZOLE 200MG TABLET (VFEND) PO SCH ×2 (09:16→21:27)
[2018-10-30] MEDS ORDERED: FUROSEMIDE 20 MG/2 ML VIAL (J1940) IV ONE (10:00)
--- NOTE | 2018-10-30 12:36 | CCN ---
DATE: 10/30/2018 CRITICAL CARE PROGRESS NOTE: The patient was seen and examined this morning during bedside rounds. The patient has been able to wean down to 4 liters per minute nasal cannula oxygen. He does have episodes where he will desaturate with movement or sometimes when eating. During those times, he will need increase in his nasal cannula oxygen up to 7 or sometimes 8 liters per minute, but he is usually able to be quickly weaned down. The patient reports his breathing has continued to be improved. His cough has also improved, and he denies any fevers or chills. No chest pains. He has no nausea or vomiting. PHYSICAL EXAMINATION: Temperature 96.8, pulse 84, respirations 22, blood pressure 114/63, oxygen saturation 96% on 4 liters nasal cannula. Ins 900 mL, out 1 liter, net negative 100 mL. General: The patient is awake and alert, is oriented times three. Is able to speak in complete sentences. Is not using any accessory muscles for respiration. HEENT: Normocephalic, atraumatic. Pupils are equal, round, reactive to light. 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 Neck is supple. There is no obvious jugular venous distention (JVD). No palpable adenopathy. He has a Port-A-Cath in the right subclavian region. Cardiovascular: Regular rate and rhythm. Normal S1, S2. No murmurs appreciated. Pulmonary: Bilateral crackles diffusely posteriorly. No wheezing or rhonchi noted. Abdomen is soft, nontender, nondistended. Normal bowel sounds present. Extremities: There is no lower extremity edema noted bilaterally. LABORATORY DATA: WBC 6.7, hemoglobin 10.7, platelets 77. Chemistry: Sodium is 132, potassium is 4.1, chloride is 93, bicarbonate 36, BUN 16, creatinine 0.47, glucose is 99. Repeat sputum cytology is still pending. ASSESSMENT/PLAN: The patient is a 63-year-old male with a history of large B-cell lymphoma status post R-CHOP, diastolic congestive heart failure (CHF), diabetes, paroxysmal atrial fibrillation who had previously been admitted in August with pneumonia versus pneumonitis versus pulmonary edema. He was treated with antibiotics, Lasix, and prednisone and was discharged home on room air, on prednisone. He presents now with increasing shortness of breath and acute hypoxemic respiratory failure. The patient had bilateral ground-glass opacities on imaging with some intralobular septal thickening and small bilateral pleural effusions. He was given antibiotics with Zosyn for possible bacterial pneumonia. However, his procalcitonin was negative. He was also started on Bactrim for possible PCP pneumonia as well as increased to high doses of prednisone. The patient did also have increased brain natriuretic peptide (BNP) and he was given Lasix with diuresis. However, his course was complicated by symptomatic hyponatremia likely in the setting of a syndrome of inappropriate secretion of antidiuretic hormone (SIADH) from his Bactrim and his Lasix was on hold. - The patient was also started on voriconazole for possible fungal pneumonia. However, he did have negative Aspergillus testing and his galactomannan was also negative. His lomj-D-oaybty was positive, however, this can be falsely elevated in the setting of certain antibiotics including Zosyn. Acute hypoxemic respiratory failure possibly secondary to an atypical pneumonia such as PCP pneumonia given his immunocompromised state versus a fungal pneumonia, although this is less likely given his negative serologies and negative galactomannan. Pulmonary edema is still possible given his increased BNP and evidence of bilateral pleural effusions. His oxygenation does appear to improve with diuresis, although this has been done very gently given his hyponatremia and he is not very significantly net negative at this time. - Would continue to give him additional Lasix for a goal net negative of 1 liter if possible with close monitoring of his sodium as per renal. - Continue to monitor his electrolytes and replete as needed. - Continue with atovaquone to complete his treatment for PCP with a 21-day course total including the Bactrim that he had previously been on. - Continue tapering his prednisone. Will taper him to 20 mg and continue with that to complete a 21-day course for his PCP and then will need to continue with a very slow taper. The patient has been on steroids now for some time and he likely will have a component of adrenal insufficiency secondary to the steroids, so will need to taper slowly. Given his custodial steroid use, he will also likely need PCP prophylaxis once he completes the treatment for his PCP. - Continue with voriconazole for now pending the results of his repeat sputum cytology. If there is no evidence of any fungal organisms noted, would likely discontinue his voriconazole as well at that time. - Continue to wean down his nasal cannula oxygen supplementation as tolerated to maintain an oxygen saturation above 88%. Advised the patient that he should be cautious with eating and should have aspiration precautions. Thrombocytopenia likely multifactorial in the setting of his medications and acute illness. Will need to continue monitor his platelets. They are trending down but has not been less than 50% of initial. Continue with Lovenox for now. Would need to hold if his platelets are below 50,000 or any evidence of active bleeding. Deep venous thrombosis (DVT) prophylaxis: Lovenox and sequential compressive devices (SCDs). Gastrointestinal (GI) prophylaxis: Omeprazole Code status: FULL CODE: Total critical care time spent not including any procedures approximately 35 minutes. Please do not hesitate to call if any further questions or concerns. MTDD
--- NOTE | 2018-10-30 18:15 | IPN ---
DATE: 10/30/2018 SUBJECTIVE: Patient was seen and examined at the bedside today morning. He is afebrile, hemodynamically stable. His sodium levels stay stable. It is 132 today. Patient has good urine output. Renal function is stable. He still continues to be on oxygen. OBJECTIVE: VITAL SIGNS: Temperature is on 96.3 degrees Fahrenheit, blood pressure is 127/73, pulse is 91, respiratory rate of 26, saturating 96% on 6 liters nasal cannula. INTAKE AND OUTPUT: Urine output recorded is 1 liter yesterday, 300 mL so far today since overnight. Weight in the bed scale is 72 kg. PHYSICAL EXAMINATION: GENERAL: Patient is awake, alert, oriented times three, laying in bed, mild respiratory distress. HEAD AND NECK EXAM: Pupils are equally round and reactive to light. Mucous membranes are moist. Neck is supple. Right internal jugular (IJ) Port-A-Cath CARDIOVASCULAR: S1, S2. Regular rate. Trace edema of the bilateral lower extremities. RESPIRATORY: Mild inspiratory crackles bilaterally at the bases. ABDOMEN: Soft. Positive bowel sounds. Nontender. No organomegaly. GENITOURINARY: He has an indwelling Bowers catheter. CENTRAL NERVOUS SYSTEM (MACHINE OPERATOR PACKAGING): No focal deficit. Power is 5/75 in all extremities. LABORATORY REVIEW: Complete blood count (CBC) showed a WBC 6.7, hemoglobin 10.7, platelets are 77. Basic metabolic panel (BMP) showed sodium 132, potassium 4.1, chloride 93, bicarbonate 36, BUN 16, creatinine 0.47, albumin is 2.8. CURRENT INPATIENT MEDICATIONS: Patient's medications were all reviewed by me. Patient continues to be on salt tablet 1 gram by mouth three times a day. He is on Lasix 20 mg IV twice a day. I am going to give him an extra dose of Lasix today. He will get 40 mg in the morning and 20 mg in the evening. ASSESSMENT AND PLAN: 1. Hyponatremia. Patient is being treated as syndrome of inappropriate antidiuretic hormone secretion (SIADH). He continues to be on salt tablets. Continue IV Lasix. 2. Hypoxemia. Patient has multiple etiologies; pulmonary edema, interstitial pneumonia and right atypical pneumonia. Patient continues to be on atovaquone and voriconazole. The rest of the management is as per infectious disease (ID) recommendations and pulmonary team.
[2018-10-30] MEDS: METOPROLOL SUCC *XL* 12.5MG PER 1/2 TAB (TopROL *XL*) PO SCH (21:30)
--- NOTE | 2018-10-30 23:57 | IPNPDOC ---
Subjective Date Seen The patient was seen on 10/30/18. Objective Physical Examination General Exam: Positive: Alert, Cooperative, No Acute Distress Eye Exam: Positive: PERRLA Neck Exam: Negative: thyromegaly Chest Exam: Positive: Rales (rales noted, no wheezes), Diminished (diffusely diminished with reduced air movement.), Other; Negative: Clear to auscultation, Rhonchi, Wheezing Heart Exam: Positive: Rate Normal, Regular Rhythm, Normal S1, Normal S2; Negative: Tachycardic, Irregular Rhythm Telemetry: Positive: Atrial fibrillation Abdomen Exam: Positive: Normal bowel sounds, Soft; Negative: Tenderness Extremity Exam: Positive: Edema (1+ edema) Skin Exam: Positive: Nl turgor and temperature Neuro Exam: Positive: Normal Speech Psych Exam: Positive: Mood NL, Anxiety (mildly) Assessment /Plan Problems (1) Acute respiratory failure with hypoxemia Status: Acute Response to Treatment: Stable, Improving Discussed With: Nurse, Patient Problem Specific Plan: Monitor Clinically, Repeat Labs Problem Text: 10/30: Doing better clinically. Still on 4L via nasal cannula, but if he moves he doesn't drop quite as fast or for quite as long. 10/28: subjectively improving. on voriconazole and atovaquone. 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 CXR looks a bit better. 10/25: voriconazole added yesterday to Multaq stopped; sxt/tmp dose optimized to 20mg/kg 10/24: ct done today. report says similar but slightly better to previous ct. await Dr. Cruz opinion about the study. 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 Plan CT tomorrow and possible bronch. He has told me that he is not enthusiastic about potentially being on a ventilator, but accepts that risk. 10/21 -- patient remains on Bactrim. If not improved by Wednesday, which is looking likely, plan bronchoscopy. Oxygen demands remain high, and patient is desatting with minimal exertion. Patient voices desire for full code status. D7 empiric Bactrim for PJP, s/p Zosyn x 6 days - stoppped by ID 10/20 Pulmonary consult pending due to severe hypoxemia with minimal exertion Unable to give sputum for Culture (No productive sputum) 10/19/18: s/p ID consult. Duonebs added q 6 hrs. DC solu-medrol. Start Prednisone 60 mg po bid. 10/18/18: repeat bl cxs and fungal smear remain pending. Patient continues with dyspnea. CT Chest competed and demonstrates improvement. see report below. 10/17/18 fungal smear/culture and DFA staining obtained (ordered 10/15!) 10/17 CT chest: The diffuse bilateral interstitial and alveolar infiltrates identified on 09/23/2018 have decreased. The bilateral pleural effusions have decreased. The extensive mediastinal lymph node enlargement identified on 05/19/2089, has resolved. 10/17/18: patient states he feels significantly better. Continues to require [address] HOLD on diuresing due to soft BP. HR remains stable. Bl cx and sputum cx pending. 10/16: LDH elevated above baseline elevation from lymphoma which can be seen c PJP. Sulfa/TMP started yesterday. Hypoxic with minimal exertion. Diuresis has diminished since change to po lasix. will repeat BNP, may need IV lasix again. 09/28/18 Fungitell >500-Ddx: PJP, Lise spp, Aspergillus less likely given 09/24 A flavus/fumigatus, niger Ab -/galacto Ag - (2) Acute on chronic diastolic (congestive) heart failure Status: Acute Response to Treatment: Stable, Improving Problem Specific Plan: Monitor Clinically Problem Text: 10/30: He is being carefully diuresed by the Nephro team. Will defer to them for further management. hdfffffffffffffffffffffffffffffffffffffffffffffffffffffffffffffffff ffffffffffffffffffffffffffffffffffffffffffffffffffffffffffffffffffffffffffffffffffffffffffffffffffff ffffffffffffffffffffffffffffffffffffffffffffffffffffffffffffffffffffffffffffffffffffffffffffffffffff ffffffffffffffffffffffffffffffffffffffffffffffffffffffffffffffffffffffffffffffffffffffffffffffffffff ffffffffffffffffffffffffffffffffffffffffffffffffffffffffffffffffffffffffffffffffffffffffffffffffffff ffffffffffffffffffffffffffffffffffffffffffffffffffffffffffffffffffffffffffffffffffffffffffffffffffff ffffffffffffffffffffffffffffffffffffffffffffffffffffffffffffffffffffffffffffffffffffffffffffffffffff ffffffffffffffffffffffffffffffffffffffffffffffffffffffffffffffffffffffffffffffffffffffffffffffffffff ffffffffffffffffffffffffffffffffffffffffffffffffffffffffffffffffffffffffffffffffffffffffffffffffffff ffffffffffffffffffffffffffffffffffffffffffffffffffffffffffffffffffffffffffffffffffffffffffffffffffff ffffffffffffffffffffffffffffffffffffffffffffffffffffffffffffffffffffffffffffffffffffffffffffffffffff ffffffffffffffffffffffffffffffffffffffffffffffffffffffffffffffffffffffffffffffffffffffffffffffffffff ffffffffffffffffffffffffffffffffffffffffffffffffffffffffffffffffffffffffffffffffffffffffffffffffffff ffffffffffffffffffffffffffffffffffffffffffffffffffffffffffffffffffffffffffffffffffffffffffffffffffff ffffffffffffffffffffffffffffffffffffffffffffffffffffffffffffffffffffffffffffffffffffffffffffffffffff ffffffffffffffffffffffffffffffffffffffffffffffffffffffffffffffffffffffffffffffffffffffffffffffffffff ffffffffffffffffffffffffffffffffffffffffffffffffffffffffffffffffffffffffffffffffffffffffffffffffffff ffffffffffffffffffffffffffffffffffffffffffffffffffffffffffffffffffffffffffffffffffffffffffffffffffff ffffffffffffffffffffffffffffffffffffffffffffffffffffffffffffffffffffffffffffffffffffffffffffffffffff ffffffffffffffffffffffffffffffffffffffffffffffffffffffffffffffffffffffffffffffffffffffffffffffffffff ffffffffffffffffffffffffffffffffffffffffffffffffffffffffffffffffffffffffffffffffffffffffffffffffffff ffffffffffffffffffffffffffffffffffffffffffffffffffffffffffffffffffffffffffffffffffffffffffffffffffff ffffffffffffffffffffffffffffffffffffffffffffffffffffffffffffffffffffffffffffffffffffffffffffffffffff ffffffffffffffffffffffffffffffffffffffffffffffffffffffffffffffffffffffffffffffffffffffffffffffffffff ffffffffffffffffffffffffffffffffffffffffffffffffffffffffffffffffffffffffffffffffffffffffffffffffffff ffffffffffffffffffffffffffffffffffffffffffffffffffffffffffffffffffffffffffffffffffffffffffffffffffff ffffffffffffffffffffffffffffffffffffffffffffffffffffffffffffffffffffffffffffffffffffffffffffffffffff ffffffffffffffffffffffffffffffffffffffffffffffffffffffffffffffffffffffffffffffffffffffffffffffffffff ffffffffffffffffffffffffffffffffffffffffffffffffffffffffffffffffffffffffffffffffffffffffffffffffffff ffffffffffffffffffffffffffffffffffffffffffffffffffffffffffffffffffffffffffffffffffffffffffffffffffff ffffffffffffffffffffffffffffffffffffffffffffffffffffffffffffffffffffffffffffffffffffffffffffffffffff ffffffffffffffffffffffffffffffffffffffffffffffffffffffffffffffffffffffffffffffffffffffffffffffffffff ffffffffffffffffffffffffffffffffffffffffffffffffffffffffffffffffffffffffffffffffffffffffffffffffffff ffffffffffffffffffffffffffffffffffffffffffffffffffffffffffffffffffffffffffffffffffffffffffffffffffff ffffffffffffffffffffffffffffffffffffffffffffffffffffffffffffffffffffffffffffffffffffffffffffffffffff ffffffffffffffffffffffffffffffffffffffffffffffffffffffffffffffffffffffffffffffffffffffffffffffffffff ffffffffffffffffffffffffffffffffffffffffffffffffffffffffffffffffffffffffffffffffffffffffffffffffffff ffffffffffffffffffffffffffffffffffffffffffffffffffffffffffffffffffffffffffffffffffffffffffffffffffff ffffffffffffffffffffffffffffffffffffffffffffffffffffffffffffffffffffffffffffffffffffffffffffffffffff ffffffffffffffffffffffffffffffffffffffffffffffffffffffffffffffffffffffffffffffffffffffffffffffffffff ffffffffffffffffffffffffffffffffffffffffffffffffffffffffffffffffffffffffffffffffffffffffffffffffffff ffffffffffffffffffffffffffffffffffffffffffffffffffffffffffffffffffffffffffffffffffffffffffffffffffff ffffffffffffffffffffffffffffffffffffffffffffffffffffffffffffffffffffffffffffffffffffffffffffffffffff ffffffffffffffffffffffffffffffffffffffffffffffffffffffffffffffffffffffffffffffffffffffffffffffffffff ffffffffffffffffffffffffffffffffffffffffffffffffffffffffffffffffffffffffffffffffffffffffffffffffffff ffffffffffffffffffffffffffffffffffffffffffffffffffffffffffffffffffffffffffffffffffffffffffffffffffff ffffffffffffffffffffffffffffffffffffffffffffffffffffffffffffffffffffffffffffffffffffffffffffffffffff ffffffffffffffffffffffffffffffffffffffffffffffffffffffffffffffffffffffffffffffffffffffffffffffffffff ffffffffffffffffffffffffffffffffffffffffffffffffffffffffffffffffffffffffffffffffffffffffffffffffffff ffffffffffffffffffffffffffffffffffffffffffffffffffffffffffffffffffffffffffffffffffffffffffffffffffff ffffffffffffffffffffffffffffffffffffffffffffffffffffffffffffffffffffffffffffffffffffffffffffffffffff ffffffffffffffffffffffffffffffffffffffffffffffffffffffffffffffffffffffffffffffffffffffffffffffffffff ffffffffffffffffffffffffffffffffffffffffffffffffffffffffffffffffffffffffffffffffffffffffffffffffffff ffffffffffffffffffffffffffffffffffffffffffffffffffffffffffffffffffffffffffffffffffffffffffffffffffff ffffffffffffffffffffffffffffffffffffffffffffffffffffffffffffffffffffffffffffffffffffffffffffffffffff ffffffffffffffffffffffffffffffffffffffffffffffffffffffffffffffffffffffffffffffffffffffffffffffffffff ffffffffffffffffffffffffffffffffffffffffffffffffffffffffffffffffffffffffffffffffffffffffffffffffffff ffffffffffffffffffffffffffffffffffffffffffffffffffffffffffffffffffffffffffffffffffffffffffffffffffff ffffffffffffffffffffffffffffffffffffffffffffffffffffffffffffffffffffffffffffffffffffffffffffffffffff ffffffffffffffffffffffffffffffffffffffffffffffffffffffffffffffffffffffffffffffffffffffffffffffffffff ffffffffffffffffffffffffffffffffffffffffffffffffffffffffffffffffffffffffffffffffffffffffffffffffffff ffffffffffffffffffffffffffffffffffffffffffffffffffffffffffffffffffffffffffffffffffffffffffffffffffff ffffffffffffffffffffffffffffffffffffffffffffffffffffffffffffffffffffffffffffffffffffffffffffffffffff ffffffffffffffffffffffffffffffffffffffffffffffffffffffffffffffffffffffffffffffffffffffffffffffffffff ffffffffffffffffffffffffffffffffffffffffffffffffffffffffffffffffffffffffffffffffffffffffffffffffffff ffffffffffffffffffffffffffffffffffffffffffffffffffffffffffffffffffffffffffffffffffffffffffffffffffff ffffffffffffffffffffffffffffffffffffffffffffffffffffffffffffffffffffffffffffffffffffffffffffffffffff ffffffffffffffffffffffffffffffffffffffffffffffffffffffffffffffffffffffffffffffffffffffffffffffffffff ffffffffffffffffffffffffffffffffffffffffffffffffffffffffffffffffffffffffffffffffffffffffffffffffffff ffffffffffffffffffffffffffffffffffffffffffffffffffffffffffffffffffffffffffffffffffffffffffffffffffff ffffffffffffffffffffffffffffffffffffffffffffffffffffffffffffffffffffffffffffffffffffffffffffffffffff ffffffffffffffffffffffffffffffffffffffffffffffffffffffffffffffffffffffffffffffffffffffffffffffffffff ffffffffffffffffffffffffffffffffffffffffffffffffffffffffffffffffffffffffffffffffffffffffffffffffffff ffffffffffffffffffffffffffffffffffffffffffffffffffffffffffffffffffffffffffffffffffffffffffffffffffff ffffffffffffffffffffffffffffffffffffffffffffffffffffffffffffffffffffffffffffffffffffffffffffffffffff fffffffff 10/28: no lasix for now. 10/27: due to rapidly worsening hyponatremia, furosemide has been held. 10/26: lasix increased to 60 bid overnight, Dr. Cruz ordered 100mg IV lasix dose this am. 10/23 -- albumin and pro-BNP ordered for tomorrow; renal function has remained stable, though there is some concern that his malaise today may indicate overdiuresis. 10/22 -- I&Os show patient consistently net negative. 10/21 - Getting Lasix 40 BID with fair diuresis per I + Os BP stable 10/17/18: HOLD on diuresing due to soft BP. HR remains stable. 10/16: CXR looks a little wetter, BNP pending; may need increase laxix CXR in am, continue lasix for now. Last ECHO 09/18 with nl EF< Gr 1 diastolic dysfunction. Cont with Lasix IV, change diet to low sodium. Monitor I & Os. (3) Hyponatremia Status: Chronic Response to Treatment: Stable, Improving Problem Text: 10/30: His sodium has improved well with Nephro's help. Appreciate the help. 10/28: hypertonic saline infusion stopped for now but sodium slightly lower than it had been. being managed by Dr Pedro. 10/27: after IV lasix yesterday, repeat sodium showed quick drop to 120 accompanied by [employer] symptoms of diplopia and confusion and hallucinations. Dr. Miri Pedro consulted and patient moved to ICU to administer 3% NS, being given through port. [employer] symptoms have resolved although weakness remains. and 10/26: sodium down to 124 today. will restrict hypotonic fluids, K now normal. possible side effect of SXT/TMP. 10/25: slightly worse sodium and persistent hyperkalemia. this combination can be side effect of SXT/TMP. Has sent communication to Dr. 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 his sxt/tmp is in water, so asked pharmacy to reduce volume that his antibiotic is in. not stable in NS, only D5W. (4) Large B-cell lymphoma Status: Acute Problem Specific Plan: Monitor Clinically Problem Text: 10/16: may need to be rescheduled depending. Follows with [facility] as outpt, scheduled for final chemo 10/21. (5) Gram-positive cocci in clusters Status: Resolved Response to Treatment: Stable Problem Text: 10/19/18: repeat bl. cx negative. 10/17 BCX2 P 10/13 BCX1/1 + for micrococcus. most likley contaminant. will repeat BCX (6) Pancytopenia due to chemotherapy Status: Resolved Problem Text: s/p Nulasta 10/14 (7) Paroxysmal atrial fibrillation Status: Chronic Response to Treatment: Stable Problem Text: 10/28: rate control remains adequate with beta braden. 10/25: Multaq stopped due to interaction with voriconazole after discussion with Dr. Arellano. rate controlled on Metoprolol Plan/VTE VTE Prophylaxis Ordered?: Yes (Lovenox) VS, I&O, 24H, Fishbone Vital Signs/I&O Vital Signs Date Time Temp Pulse Resp B/P (MAP) Pulse Ox O2 Delivery O2 Flow Rate FiO2 10/30/18 21:30 104 120/82 10/30/18 20:00 4.0 10/30/18 20:00 97.1 22 91 10/30/18 18:00 Nasal Cannula I&O- Last 24 Hours up to 6 AM 10/30/18 06:00 Intake Total 840 ml Output Total 1080 ml Balance -240 ml Laboratory Data 24H LABS Laboratory Tests 2 10/30/18 04:59: Nucleated Red Blood Cells % (auto) 0.0, Immature Platelet Fraction 4.6, Anion Gap 3L, Glomerular Filtration Rate > 60.0, Blood Urea Nitrogen 16, Creatinine 0.47L, Sodium Level 132L, Potassium Level 4.1, Chloride Level 93L, Carbon Dioxide Level 36H, Calcium Level 8.9, Aspartate Amino Transf (AST/SGOT) 39H, Alanine Aminotransferase (ALT/SGPT) 30, Alkaline Phosphatase 111, Total Bilirubin 0.5#, Total Protein 6.1L, Albumin 2.8L, Albumin/Globulin Ratio 0.85L CBC/BMP Laboratory Tests 10/30/18 04:59 Red Blood Count 3.99 L, Mean Corpuscular Volume 86.0, Mean Corpuscular Hemoglobin 26.8 L, Mean Corpuscular Hemoglobin Concent 31.2 L, Red Cell Dist ribution Width 17.2 H, Calcium Level 8.9, Aspartate Amino Transf (AST/SGOT) 39 H, Alanine Aminotransferase (ALT/SGPT) 30, Alkaline Phosphatase 111, Total Bilirubin 0.5 #, Total Protein 6.1 L, Albumin 2.8 L Ramses Etienne MD Oct 30, 2018 23:57
[2018-10-31] VITALS (24 sets, daily range): BP systolic 110–130; BP diastolic 64–81; O2SAT 88–100
[2018-10-31] MEDS: IPRATROPIUM 0.5MG/ALBUTEROL 2.5MG INH SOL UD 3ML (DUONEB)(J7620) NEB SCH ×4 (02:00→20:14)
[2018-10-31 05:55] LABS: HEMATOCRIT 33.6 % (42.0-52.0); HEMOGLOBIN 10.6 g/dl (13.5-17.5); MEAN CORPUSCULAR HGB CONC 31.5 g/dl (32.0-36.5); MEAN CORPUSCULAR VOLUME 85.5 fl (80.0-96.0); RED BLOOD COUNT 3.93 10^6/uL (4.30-6.10); WHITE BLOOD COUNT 5.7 10^3/uL (4.0-10.0)
[2018-10-31 06:03] LABS: PLATELET COUNT, AUTOMATED 79 10^3/uL (150-450)
[2018-10-31] MEDS: SLF 3 ML SYR IV SCH ×3 (06:23→20:50)
[2018-10-31] MEDS: OMEPRAZOLE 20 MG CAP PO SCH (09:03)
[2018-10-31] MEDS: SODIUM CHLORIDE 1 GM TAB PO SCH ×3 (09:03→20:50)
[2018-10-31] MEDS: ENOXAPARIN 40 MG/0.4 ML SYRINGE (J1650) SC SCH (09:03)
[2018-10-31] MEDS: predniSONE 20 MG TAB PO SCH (09:04)
[2018-10-31] MEDS: FUROSEMIDE 20 MG/2 ML VIAL (J1940) IV SCH (09:04)
[2018-10-31] MEDS: VORICONAZOLE 200MG TABLET (VFEND) PO SCH ×2 (09:04→20:50)
[2018-10-31] MEDS: ATOVAQUONE SUSP 750MG/5ML 210 ML BTL PO SCH ×2 (09:05→20:49)
--- NOTE | 2018-10-31 11:12 | IPNPDOC ---
Subjective Date Seen The patient was seen on 10/31/18. Subjective Chief Complaint/HPI Continues to diurese with Lasix. Nephrology is managing his dosing. Continues to have dyspnea with minimal exertion. Constitutional: Denies: Chills, Fever, Night Sweats Pulmonary: Reports: Dyspnea, Cough Cardiovascular: Reports: Edema; Denies: Chest Pain, Palpitations, Orthopnea, Paroxysmal Noc. Dyspnea, Lt Headedness Gastrointestinal: Denies: Nausea, Vomiting, Abdominal Pain, Diarrhea, Constipation Psych: Reports: Mood Normal; Denies: Depression, Memory Issues Objective Physical Examination General Exam: Positive: Alert, Cooperative, No Acute Distress Eye Exam: Positive: PERRLA Neck Exam: Negative: thyromegaly Chest Exam: Positive: Rales (rales noted, no wheezes), Diminished (diffusely diminished with reduced air movement.), Other; Negative: Clear to auscultation, Rhonchi, Wheezing Heart Exam: Positive: Rate Normal, Regular Rhythm, Normal S1, Normal S2; Negative: Tachycardic, Irregular Rhythm Telemetry: Positive: Atrial fibrillation Abdomen Exam: Positive: Normal bowel sounds, Soft; Negative: Tenderness Extremity Exam: Positive: Edema (1+ edema) Skin Exam: Positive: Nl turgor and temperature Neuro Exam: Positive: Normal Speech Psych Exam: Positive: Mood NL, Anxiety (mildly) Assessment /Plan Assessment Patient seen, agree with note. Baseline O2 needs are lower than a couple weeks ago, but he still has very limited exercise tolerance, and requires increased O2 for any activity. -- CDT Problems (1) Acute respiratory failure with hypoxemia Status: Acute Response to Treatment: Stable, Improving Discussed With: Nurse, Patient Problem Specific Plan: Monitor Clinically, Repeat Labs Problem Text: 10/31/18: mild improvement. continues to require oxygen and desatu rates with mild exertion. Continue with diuresis and monitor symptoms. 10/30: Doing better clinically. Still on 4L via nasal cannula, but if he moves he doesn't drop quite as fast or for quite as long. 10/28: subjectively improving. on voriconazole and atovaquone. 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 CXR looks a bit better. 10/25: voriconazole added yesterday to Multaq stopped; sxt/tmp dose optimized to 20mg/kg 10/24: ct done today. report says similar but slightly better to previous ct. await Dr. Cruz opinion about the study. 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 Plan CT tomorrow and possible bronch. He has told me that he is not enthusiastic about potentially being on a ventilator, but accepts that risk. 10/21 -- patient remains on Bactrim. If not improved by Wednesday, which is looking likely, plan bronchoscopy. Oxygen demands remain high, and patient is desatting with minimal exertion. Patient voices desire for full code status. D7 empiric Bactrim for PJP, s/p Zosyn x 6 days - stoppped by ID 10/20 Pulmonary consult pending due to severe hypoxemia with minimal exertion Unable to give sputum for Culture (No productive sputum) 10/19/18: s/p ID consult. Duonebs added q 6 hrs. DC solu-medrol. Start Prednisone 60 mg po bid. 10/18/18: repeat bl cxs and fungal smear remain pending. Patient continues with dyspnea. CT Chest competed and demonstrates improvement. see report below. 10/17/18 fungal smear/culture and DFA staining obtained (ordered 10/15!) 10/17 CT chest: The diffuse bilateral interstitial and alveolar infiltrates identified on 09/23/2018 have decreased. The bilateral pleural effusions have decreased. The extensive mediastinal lymph node enlargement identified on 05/19/2089, has resolved. 10/17/18: patient states he feels significantly better. Continues to require [address] HOLD on diuresing due to soft BP. HR remains stable. Bl cx and sputum cx pending. 10/16: LDH elevated above baseline elevation from lymphoma which can be seen c PJP. Sulfa/TMP started yesterday. Hypoxic with minimal exertion. Diuresis has diminished since change to po lasix. will repeat BNP, may need IV lasix again. 09/28/18 Fungitell >500-Ddx: PJP, Lise spp, Aspergillus less likely given 5/25 A flavus/fumigatus, niger Ab -/galacto Ag - (2) Acute on chronic diastolic (congestive) heart failure Status: Acute Response to Treatment: Stable, Improving Problem Specific Plan: Monitor Clinically Problem Text: 10/30: He is being carefully diuresed by the Nephro team. Will defer to them for further management. hdfffffffffffffffffffffffffffffffffffffffffffffffffffffffffffffffff ffffffffffffffffffffffffffffffffffffffffffffffffffffffffffffffffffffffffffffffffffffffffffffffffffff ffffffffffffffffffffffffffffffffffffffffffffffffffffffffffffffffffffffffffffffffffffffffffffffffffff ffffffffffffffffffffffffffffffffffffffffffffffffffffffffffffffffffffffffffffffffffffffffffffffffffff ffffffffffffffffffffffffffffffffffffffffffffffffffffffffffffffffffffffffffffffffffffffffffffffffffff ffffffffffffffffffffffffffffffffffffffffffffffffffffffffffffffffffffffffffffffffffffffffffffffffffff ffffffffffffffffffffffffffffffffffffffffffffffffffffffffffffffffffffffffffffffffffffffffffffffffffff ffffffffffffffffffffffffffffffffffffffffffffffffffffffffffffffffffffffffffffffffffffffffffffffffffff ffffffffffffffffffffffffffffffffffffffffffffffffffffffffffffffffffffffffffffffffffffffffffffffffffff ffffffffffffffffffffffffffffffffffffffffffffffffffffffffffffffffffffffffffffffffffffffffffffffffffff ffffffffffffffffffffffffffffffffffffffffffffffffffffffffffffffffffffffffffffffffffffffffffffffffffff ffffffffffffffffffffffffffffffffffffffffffffffffffffffffffffffffffffffffffffffffffffffffffffffffffff ffffffffffffffffffffffffffffffffffffffffffffffffffffffffffffffffffffffffffffffffffffffffffffffffffff ffffffffffffffffffffffffffffffffffffffffffffffffffffffffffffffffffffffffffffffffffffffffffffffffffff ffffffffffffffffffffffffffffffffffffffffffffffffffffffffffffffffffffffffffffffffffffffffffffffffffff ffffffffffffffffffffffffffffffffffffffffffffffffffffffffffffffffffffffffffffffffffffffffffffffffffff ffffffffffffffffffffffffffffffffffffffffffffffffffffffffffffffffffffffffffffffffffffffffffffffffffff ffffffffffffffffffffffffffffffffffffffffffffffffffffffffffffffffffffffffffffffffffffffffffffffffffff ffffffffffffffffffffffffffffffffffffffffffffffffffffffffffffffffffffffffffffffffffffffffffffffffffff ffffffffffffffffffffffffffffffffffffffffffffffffffffffffffffffffffffffffffffffffffffffffffffffffffff ffffffffffffffffffffffffffffffffffffffffffffffffffffffffffffffffffffffffffffffffffffffffffffffffffff ffffffffffffffffffffffffffffffffffffffffffffffffffffffffffffffffffffffffffffffffffffffffffffffffffff ffffffffffffffffffffffffffffffffffffffffffffffffffffffffffffffffffffffffffffffffffffffffffffffffffff ffffffffffffffffffffffffffffffffffffffffffffffffffffffffffffffffffffffffffffffffffffffffffffffffffff ffffffffffffffffffffffffffffffffffffffffffffffffffffffffffffffffffffffffffffffffffffffffffffffffffff ffffffffffffffffffffffffffffffffffffffffffffffffffffffffffffffffffffffffffffffffffffffffffffffffffff ffffffffffffffffffffffffffffffffffffffffffffffffffffffffffffffffffffffffffffffffffffffffffffffffffff ffffffffffffffffffffffffffffffffffffffffffffffffffffffffffffffffffffffffffffffffffffffffffffffffffff ffffffffffffffffffffffffffffffffffffffffffffffffffffffffffffffffffffffffffffffffffffffffffffffffffff ffffffffffffffffffffffffffffffffffffffffffffffffffffffffffffffffffffffffffffffffffffffffffffffffffff ffffffffffffffffffffffffffffffffffffffffffffffffffffffffffffffffffffffffffffffffffffffffffffffffffff ffffffffffffffffffffffffffffffffffffffffffffffffffffffffffffffffffffffffffffffffffffffffffffffffffff ffffffffffffffffffffffffffffffffffffffffffffffffffffffffffffffffffffffffffffffffffffffffffffffffffff ffffffffffffffffffffffffffffffffffffffffffffffffffffffffffffffffffffffffffffffffffffffffffffffffffff ffffffffffffffffffffffffffffffffffffffffffffffffffffffffffffffffffffffffffffffffffffffffffffffffffff ffffffffffffffffffffffffffffffffffffffffffffffffffffffffffffffffffffffffffffffffffffffffffffffffffff ffffffffffffffffffffffffffffffffffffffffffffffffffffffffffffffffffffffffffffffffffffffffffffffffffff ffffffffffffffffffffffffffffffffffffffffffffffffffffffffffffffffffffffffffffffffffffffffffffffffffff ffffffffffffffffffffffffffffffffffffffffffffffffffffffffffffffffffffffffffffffffffffffffffffffffffff ffffffffffffffffffffffffffffffffffffffffffffffffffffffffffffffffffffffffffffffffffffffffffffffffffff ffffffffffffffffffffffffffffffffffffffffffffffffffffffffffffffffffffffffffffffffffffffffffffffffffff ffffffffffffffffffffffffffffffffffffffffffffffffffffffffffffffffffffffffffffffffffffffffffffffffffff ffffffffffffffffffffffffffffffffffffffffffffffffffffffffffffffffffffffffffffffffffffffffffffffffffff ffffffffffffffffffffffffffffffffffffffffffffffffffffffffffffffffffffffffffffffffffffffffffffffffffff ffffffffffffffffffffffffffffffffffffffffffffffffffffffffffffffffffffffffffffffffffffffffffffffffffff ffffffffffffffffffffffffffffffffffffffffffffffffffffffffffffffffffffffffffffffffffffffffffffffffffff ffffffffffffffffffffffffffffffffffffffffffffffffffffffffffffffffffffffffffffffffffffffffffffffffffff ffffffffffffffffffffffffffffffffffffffffffffffffffffffffffffffffffffffffffffffffffffffffffffffffffff ffffffffffffffffffffffffffffffffffffffffffffffffffffffffffffffffffffffffffffffffffffffffffffffffffff ffffffffffffffffffffffffffffffffffffffffffffffffffffffffffffffffffffffffffffffffffffffffffffffffffff ffffffffffffffffffffffffffffffffffffffffffffffffffffffffffffffffffffffffffffffffffffffffffffffffffff ffffffffffffffffffffffffffffffffffffffffffffffffffffffffffffffffffffffffffffffffffffffffffffffffffff ffffffffffffffffffffffffffffffffffffffffffffffffffffffffffffffffffffffffffffffffffffffffffffffffffff ffffffffffffffffffffffffffffffffffffffffffffffffffffffffffffffffffffffffffffffffffffffffffffffffffff ffffffffffffffffffffffffffffffffffffffffffffffffffffffffffffffffffffffffffffffffffffffffffffffffffff ffffffffffffffffffffffffffffffffffffffffffffffffffffffffffffffffffffffffffffffffffffffffffffffffffff ffffffffffffffffffffffffffffffffffffffffffffffffffffffffffffffffffffffffffffffffffffffffffffffffffff ffffffffffffffffffffffffffffffffffffffffffffffffffffffffffffffffffffffffffffffffffffffffffffffffffff ffffffffffffffffffffffffffffffffffffffffffffffffffffffffffffffffffffffffffffffffffffffffffffffffffff ffffffffffffffffffffffffffffffffffffffffffffffffffffffffffffffffffffffffffffffffffffffffffffffffffff ffffffffffffffffffffffffffffffffffffffffffffffffffffffffffffffffffffffffffffffffffffffffffffffffffff ffffffffffffffffffffffffffffffffffffffffffffffffffffffffffffffffffffffffffffffffffffffffffffffffffff ffffffffffffffffffffffffffffffffffffffffffffffffffffffffffffffffffffffffffffffffffffffffffffffffffff ffffffffffffffffffffffffffffffffffffffffffffffffffffffffffffffffffffffffffffffffffffffffffffffffffff ffffffffffffffffffffffffffffffffffffffffffffffffffffffffffffffffffffffffffffffffffffffffffffffffffff ffffffffffffffffffffffffffffffffffffffffffffffffffffffffffffffffffffffffffffffffffffffffffffffffffff ffffffffffffffffffffffffffffffffffffffffffffffffffffffffffffffffffffffffffffffffffffffffffffffffffff ffffffffffffffffffffffffffffffffffffffffffffffffffffffffffffffffffffffffffffffffffffffffffffffffffff ffffffffffffffffffffffffffffffffffffffffffffffffffffffffffffffffffffffffffffffffffffffffffffffffffff ffffffffffffffffffffffffffffffffffffffffffffffffffffffffffffffffffffffffffffffffffffffffffffffffffff ffffffffffffffffffffffffffffffffffffffffffffffffffffffffffffffffffffffffffffffffffffffffffffffffffff ffffffffffffffffffffffffffffffffffffffffffffffffffffffffffffffffffffffffffffffffffffffffffffffffffff ffffffffffffffffffffffffffffffffffffffffffffffffffffffffffffffffffffffffffffffffffffffffffffffffffff ffffffffffffffffffffffffffffffffffffffffffffffffffffffffffffffffffffffffffffffffffffffffffffffffffff ffffffffffffffffffffffffffffffffffffffffffffffffffffffffffffffffffffffffffffffffffffffffffffffffffff fffffffff 10/28: no lasix for now. 10/27: due to rapidly worsening hyponatremia, furosemide has been held. 10/26: lasix increased to 60 bid overnight, Dr. Cruz ordered 100mg IV lasix dose this am. 10/23 -- albumin and pro-BNP ordered for tomorrow; renal function has remained stable, though there is some concern that his malaise today may indicate overdiuresis. 10/22 -- I&Os show patient consistently net negative. 10/21 - Getting Lasix 40 BID with fair diuresis per I + Os BP stable 10/17/18: HOLD on diuresing due to soft BP. HR remains stable. 10/16: CXR looks a little wetter, BNP pending; may need increase laxix CXR in am, continue lasix for now. Last ECHO 09/18 with nl EF< Gr 1 diastolic dysfunction. Cont with Lasix IV, change diet to low sodium. Monitor I & Os. (3) Hyponatremia Status: Chronic Response to Treatment: Stable, Improving Problem Text: 10/31/18: continues to improve 10/30: His sodium has improved well with Nephro's help. Appreciate the help. 10/28: hypertonic saline infusion stopped for now but sodium slightly lower than it had been. being managed by Dr Pedro. 10/27: after IV lasix yesterday, repeat sodium showed quick drop to 120 accompanied by STULL INSTALLER symptoms of diplopia and confusion and hallucinations. Dr. Miri Pedro consulted and patient moved to ICU to administer 3% NS, being given through port. STULL INSTALLER symptoms have resolved although weakness remains. and 10/26: sodium down to 124 today. will restrict hypotonic fluids, K now normal. possible side effect of SXT/TMP. 10/25: slightly worse sodium and persistent hyperkalemia. this combination can be side effect of SXT/TMP. Has sent communication to Dr. 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 his sxt/tmp is in water, so asked pharmacy to reduce volume that his antibiotic is in. not stable in NS, only D5W. (4) Large B-cell lymphoma Status: Acute Problem Specific Plan: Monitor Clinically Problem Text: 10/16: may need to be rescheduled depending. Follows with [facility] Onc as outpt, scheduled for final chemo 10/21. (5) Gram-positive cocci in clusters Status: Resolved Response to Treatment: Stable Problem Text: 10/19/18: repeat bl. cx negative. 10/17 BCX2 P 10/13 BCX1/1 + for micrococcus. most likley contaminant. will repeat BCX (6) Pancytopenia due to chemotherapy Status: Resolved Problem Text: s/p Nulasta 10/14 (7) Paroxysmal atrial fibrillation Status: Chronic Response to Treatment: Stable Problem Text: 10/28: rate control remains adequate with beta braden. 10/25: Multaq stopped due to interaction with voriconazole after discussion with Dr. Arellano. rate controlled on Metoprolol Plan/VTE VTE Prophylaxis Ordered?: Yes (Lovenox) VS, I&O, 24H, Fishbone Vital Signs/I&O Vital Signs Date Time Temp Pulse Resp B/P (MAP) Pulse Ox O2 Delivery O2 Flow Rate FiO2 10/31/18 08:00 4.0 10/31/18 08:00 96.6 90 18 130/81 (97) 90 10/31/18 06:00 Nasal Cannula I&O- Last 24 Hours up to 6 AM 10/31/18 06:00 Intake Total 240 ml Output Total 1675 ml Balance -1435 ml Laboratory Data 24H LABS Laboratory Tests 2 10/31/18 05:38: Nucleated Red Blood Cells % (auto) 0.0, Immature Platelet Fraction 3.4 CBC/BMP Laboratory Tests 10/31/18 05:38 Red Blood Count 3.93 L, Mean Corpuscular Volume 85.5, Mean Corpuscular Hemoglobin 27.0, Mean Corpuscular Hemoglobin Concent 31.5 L, Red Cell Distribution Width 17.7 H Jael Martínez [employer] Oct 31, 2018 11:12 LAWRENCE CARDENAS DO Nov 01, 2018 23:21
[2018-10-31] MEDS ORDERED: FUROSEMIDE 20 MG/2 ML VIAL (J1940) IV ONE (12:00)
[2018-10-31] MEDS: TORSEMIDE 20 MG TAB PO SCH (16:55)
[2018-10-31] MEDS: METOPROLOL SUCC *XL* 12.5MG PER 1/2 TAB (TopROL *XL*) PO SCH (20:49)
[2018-11-01] VITALS (14 sets, daily range): BP systolic 104–123; BP diastolic 62–81; O2SAT 92–100
[2018-11-01] MEDS: IPRATROPIUM 0.5MG/ALBUTEROL 2.5MG INH SOL UD 3ML (DUONEB)(J7620) NEB SCH ×4 (02:00→19:35)
[2018-11-01 05:59] LABS: HEMATOCRIT 34.2 % (42.0-52.0); HEMOGLOBIN 10.6 g/dl (13.5-17.5); MEAN CORPUSCULAR HEMOGLOBIN 26.8 pg (27.0-33.0); MEAN CORPUSCULAR VOLUME 86.4 fl (80.0-96.0); RED BLOOD COUNT 3.96 10^6/uL (4.30-6.10); WHITE BLOOD COUNT 4.5 10^3/uL (4.0-10.0)
[2018-11-01 06:04] LABS: PLATELET COUNT, AUTOMATED 84 10^3/uL (150-450)
[2018-11-01 06:30] LABS: BLOOD UREA NITROGEN 16 MG/DL (7-18); CARBON DIOXIDE LEVEL 35 MEQ/L (21-32); CHLORIDE LEVEL 93 MEQ/L (98-107); CREATININE FOR GFR 0.47 MG/DL (0.70-1.30); GLOMERULAR FILTRATION RATE > 60.0 (>49); GLUCOSE, FASTING 109 MG/DL (70-100); POTASSIUM SERUM 3.1 MEQ/L (3.5-5.1); SODIUM LEVEL 134 MEQ/L (136-145)
[2018-11-01] MEDS: SLF 3 ML SYR IV SCH ×3 (06:34→21:27)
--- NOTE | 2018-11-01 06:43 | IPN ---
DATE OF SERVICE: 10/31/2018 SUBJECTIVE: The patient was seen and examined the bedside today morning. He is afebrile, hemodynamically stable. He was given an extra dose of Lasix yesterday. He has a good urine output. Renal function is stable. Sodium level has improved to 132 today. He is still oxygen dependent and currently on nasal cannula at 6 liters per minute. OBJECTIVE: Vital signs: Temperature is 95.44 degrees Fahrenheit. Blood pressure is 110/75, pulse is 106, respiratory rate of 20, saturating 99% on 6 liters nasal cannula. Intake and output: Urine output recorded as 1.8 liter yesterday, 695 mL so far today since overnight. Weight on the bed scale is 70.2 kg. PHYSICAL EXAMINATION: General: The patient is awake, alert, oriented times three, laying in bed getting nasal cannula. Head and neck exam: Extraocular muscles intact. Pupils equally round and reactive to light. Mucous membranes are moist. Neck is supple. She has a right IJ Port-A-Cath. Cardiovascular: S1, S2, regular rate. Trace edema of the bilateral lower extremities. Respiratory: Mild inspiratory crackles bilaterally at the bases. Abdomen: Soft. Positive bowel sounds. Nontender. No organomegaly. Genitourinary: He has an indwelling Bowers catheter. CREDIT RISK ANALYST: No focal deficit. Power is 5/5 in all extremities. LAB REVIEW: CBC showed WBC 5.7, hemoglobin 10.6, platelets of 79. BMP showed sodium 132, potassium 4.1, chloride 93, bicarb 36, BUN of 16, creatinine is 0.47. CURRENT INPATIENT MEDICATIONS: The patient's medications were all reviewed by me. He is on Lasix 20 mg IV twice a day. I gave him another dose of Lasix 20 mg in the afternoon. He has been switched to torsemide now 20 mg by mouth twice a day. ASSESSMENT/PLAN: 1. Hyponatremia. The patient is being treated as syndrome of inappropriate antidiuretic hormone secretion. He is on Lasix and salt tablets. IV diuretics have been stopped. He has been started on torsemide 20 mg by mouth twice a day. 2. Hypoxemia. The patient is being treated for fungal infection versus atypical pneumonia. He is symptomatically getting better. He response to IV diuretics, oxygen is being weaned off. Extra dose of Lasix today in the afternoon and then switch the diuretics to oral now.
[2018-11-01 06:54] LABS: ANISOCYTOSIS 2+; EOSINOPHILS 1 % (0-5); MONOCYTES 4 % (0-8); NEUTROPHILS 92 % (35-75); PLATELET ESTIMATE DECREASED (NORMAL)
[2018-11-01] MEDS: SODIUM CHLORIDE 1 GM TAB PO SCH ×3 (09:03→21:26)
[2018-11-01] MEDS: OMEPRAZOLE 20 MG CAP PO SCH (09:03)
[2018-11-01] MEDS: ATOVAQUONE SUSP 750MG/5ML 210 ML BTL PO SCH ×2 (09:03→21:27)
[2018-11-01] MEDS: predniSONE 20 MG TAB PO SCH (09:03)
[2018-11-01] MEDS: ENOXAPARIN 40 MG/0.4 ML SYRINGE (J1650) SC SCH (09:04)
[2018-11-01] MEDS: VORICONAZOLE 200MG TABLET (VFEND) PO SCH ×2 (09:04→21:27)
[2018-11-01] MEDS: TORSEMIDE 20 MG TAB PO SCH ×2 (09:04→16:50)
--- NOTE | 2018-11-01 10:04 | IPNPDOC ---
Subjective Date Seen The patient was seen on 11/01/18. Subjective Chief Complaint/HPI Oxygen sats stable on 4 liters, but drop with ambulation - requires 6 liters with ambulation Still with DUFFY - working with PT - having trouble with purse lipped breathing Constitutional: Denies: Chills, Fever Pulmonary: Reports: Dyspnea; Denies: Cough Cardiovascular: Denies: Chest Pain, Palpitations Gastrointestinal: Denies: Nausea, Vomiting, Abdominal Pain, Diarrhea, Constipation Objective Physical Examination General Exam: Positive: Alert, Cooperative, No Acute Distress Eye Exam: Positive: PERRLA Neck Exam: Negative: thyromegaly Chest Exam: Positive: Rales (rales noted, no wheezes), Diminished (diffusely diminished with reduced air movement.), Other; Negative: Clear to auscultation, Rhonchi, Wheezing Heart Exam: Positive: Rate Normal, Regular Rhythm, Normal S1, Normal S2; Negative: Tachycardic, Irregular Rhythm Telemetry: Positive: Atrial fibrillation Abdomen Exam: Positive: Normal bowel sounds, Soft; Negative: Tenderness Extremity Exam: Positive: Edema (trace edema BL) Skin Exam: Positive: Nl turgor and temperature Neuro Exam: Positive: Normal Speech Psych Exam: Positive: Mood NL, Anxiety (mildly) Assessment /Plan Assessment Gently diuresing as per nephrology. If repeat sputum cultures negative for fungus, will stop voriconazole. He reports that tomorrow he will do some walking with PT, and I encouraged this, though I suspect that he will need to significantly increase his supplemental O2. -- CDT Problems (1) Acute respiratory failure with hypoxemia Status: Acute Response to Treatment: Stable, Improving Discussed With: Nurse, Patient Problem Specific Plan: Monitor Clinically, Repeat Labs Problem Text: 11/01 - Very slow progress. PT will continue to work on teaching purs lipped breathing and raise oxygen to 6 liters while ambulating for now Remains on Atovaquone D#11/20 for presumptive PCP, On Vorconazole for possible fungal pneumonia (Sputum fungal cultures pending - if negative, would de/c Vorcon especially considering negative serologies and galactomannan Still on Prednisone 10/31/18: mild improvement. continues to require oxygen and desaturates with mild exertion. Continue with diuresis and monitor symptoms. 10/30: Doing better clinically. Still on 4L via nasal cannula, but if he moves he doesn't drop quite as fast or for quite as long. 10/28: subjectively improving. on voriconazole and atovaquone. 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 CXR looks a bit better. 10/25: voriconazole added yesterday to Multaq stopped; sxt/tmp dose optimized to 20mg/kg 10/24: ct done today. report says similar but slightly better to previous ct. await Dr. Cruz opinion about the study. 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 Plan CT tomorrow and possible bronch. He has told me that he is not enthusiastic about potentially being on a ventilator, but accepts that risk. 10/21 -- patient remains on Bactrim. If not improved by Wednesday, which is looking likely, plan bronchoscopy. Oxygen demands remain high, and patient is desatting with minimal exertion. Patient voices desire for full code status. D7 empiric Bactrim for PJP, s/p Zosyn x 6 days - stoppped by ID 10/20 Pulmonary consult pending due to severe hypoxemia with minimal exertion Unable to give sputum for Culture (No productive sputum) 10/19/18: s/p ID consult. Duonebs added q 6 hrs. DC solu-medrol. Start Prednisone 60 mg po bid. 10/18/18: repeat bl cxs and fungal smear remain pending. Patient continues with dyspnea. CT Chest competed and demonstrates improvement. see report below. 10/17/18 fungal smear/culture and DFA staining obtained (ordered 10/15!) 10/17 CT chest: The diffuse bilateral interstitial and alveolar infiltrates identified on 09/23/2018 have decreased. The bilateral pleural effusions have decreased. The extensive mediastinal lymph node enlargement identified on 05/19/2089, has resolved. 10/17/18: patient states he feels significantly better. Continues to require 5 LNC. HOLD on diuresing due to soft BP. HR remains stable. Bl cx and sputum cx pending. 10/16: LDH elevated above baseline elevation from lymphoma which can be seen c PJP. Sulfa/TMP started yesterday. Hypoxic with minimal exertion. Diuresis has diminished since change to po lasix. will repeat BNP, may need IV lasix again. 09/28/18 Fungitell >500-Ddx: PJP, Lise spp, Aspergillus less likely given 09/24 A flavus/fumigatus, niger Ab -/galacto Ag - (2) Gram-positive cocci in clusters Status: Resolved Response to Treatment: Stable Problem Text: 10/19/18: repeat bl. cx negative. 10/17 BCX2 P 10/13 BCX1/1 + for micrococcus. most likley contaminant. will repeat BCX (3) Acute on chronic diastolic (congestive) heart failure Status: Acute Response to Treatment: Stable, Improving Problem Specific Plan: Monitor Clinically Problem Text: 11/01 - Now on Torsemide 20 BID per nephrology 10/30: He is being carefully diuresed by the Nephro team. Will defer to them for further management. hdffffffffffffffffffffffffffffffffff ffffffffffffffffffffffffffffffffffffffffffffffffffffffffffffffffffffffffffffffffffffffffffffffffffff ffffffffffffffffffffffffffffffffffffffffffffffffffffffffffffffffffffffffffffffffffffffffffffffffffff ffffffffffffffffffffffffffffffffffffffffffffffffffffffffffffffffffffffffffffffffffffffffffffffffffff ffffffffffffffffffffffffffffffffffffffffffffffffffffffffffffffffffffffffffffffffffffffffffffffffffff ffffffffffffffffffffffffffffffffffffffffffffffffffffffffffffffffffffffffffffffffffffffffffffffffffff ffffffffffffffffffffffffffffffffffffffffffffffffffffffffffffffffffffffffffffffffffffffffffffffffffff ffffffffffffffffffffffffffffffffffffffffffffffffffffffffffffffffffffffffffffffffffffffffffffffffffff ffffffffffffffffffffffffffffffffffffffffffffffffffffffffffffffffffffffffffffffffffffffffffffffffffff ffffffffffffffffffffffffffffffffffffffffffffffffffffffffffffffffffffffffffffffffffffffffffffffffffff ffffffffffffffffffffffffffffffffffffffffffffffffffffffffffffffffffffffffffffffffffffffffffffffffffff ffffffffffffffffffffffffffffffffffffffffffffffffffffffffffffffffffffffffffffffffffffffffffffffffffff ffffffffffffffffffffffffffffffffffffffffffffffffffffffffffffffffffffffffffffffffffffffffffffffffffff ffffffffffffffffffffffffffffffffffffffffffffffffffffffffffffffffffffffffffffffffffffffffffffffffffff ffffffffffffffffffffffffffffffffffffffffffffffffffffffffffffffffffffffffffffffffffffffffffffffffffff ffffffffffffffffffffffffffffffffffffffffffffffffffffffffffffffffffffffffffffffffffffffffffffffffffff ffffffffffffffffffffffffffffffffffffffffffffffffffffffffffffffffffffffffffffffffffffffffffffffffffff ffffffffffffffffffffffffffffffffffffffffffffffffffffffffffffffffffffffffffffffffffffffffffffffffffff ffffffffffffffffffffffffffffffffffffffffffffffffffffffffffffffffffffffffffffffffffffffffffffffffffff ffffffffffffffffffffffffffffffffffffffffffffffffffffffffffffffffffffffffffffffffffffffffffffffffffff ffffffffffffffffffffffffffffffffffffffffffffffffffffffffffffffffffffffffffffffffffffffffffffffffffff ffffffffffffffffffffffffffffffffffffffffffffffffffffffffffffffffffffffffffffffffffffffffffffffffffff ffffffffffffffffffffffffffffffffffffffffffffffffffffffffffffffffffffffffffffffffffffffffffffffffffff ffffffffffffffffffffffffffffffffffffffffffffffffffffffffffffffffffffffffffffffffffffffffffffffffffff ffffffffffffffffffffffffffffffffffffffffffffffffffffffffffffffffffffffffffffffffffffffffffffffffffff ffffffffffffffffffffffffffffffffffffffffffffffffffffffffffffffffffffffffffffffffffffffffffffffffffff ffffffffffffffffffffffffffffffffffffffffffffffffffffffffffffffffffffffffffffffffffffffffffffffffffff ffffffffffffffffffffffffffffffffffffffffffffffffffffffffffffffffffffffffffffffffffffffffffffffffffff ffffffffffffffffffffffffffffffffffffffffffffffffffffffffffffffffffffffffffffffffffffffffffffffffffff ffffffffffffffffffffffffffffffffffffffffffffffffffffffffffffffffffffffffffffffffffffffffffffffffffff ffffffffffffffffffffffffffffffffffffffffffffffffffffffffffffffffffffffffffffffffffffffffffffffffffff ffffffffffffffffffffffffffffffffffffffffffffffffffffffffffffffffffffffffffffffffffffffffffffffffffff ffffffffffffffffffffffffffffffffffffffffffffffffffffffffffffffffffffffffffffffffffffffffffffffffffff ffffffffffffffffffffffffffffffffffffffffffffffffffffffffffffffffffffffffffffffffffffffffffffffffffff ffffffffffffffffffffffffffffffffffffffffffffffffffffffffffffffffffffffffffffffffffffffffffffffffffff ffffffffffffffffffffffffffffffffffffffffffffffffffffffffffffffffffffffffffffffffffffffffffffffffffff ffffffffffffffffffffffffffffffffffffffffffffffffffffffffffffffffffffffffffffffffffffffffffffffffffff ffffffffffffffffffffffffffffffffffffffffffffffffffffffffffffffffffffffffffffffffffffffffffffffffffff ffffffffffffffffffffffffffffffffffffffffffffffffffffffffffffffffffffffffffffffffffffffffffffffffffff ffffffffffffffffffffffffffffffffffffffffffffffffffffffffffffffffffffffffffffffffffffffffffffffffffff ffffffffffffffffffffffffffffffffffffffffffffffffffffffffffffffffffffffffffffffffffffffffffffffffffff ffffffffffffffffffffffffffffffffffffffffffffffffffffffffffffffffffffffffffffffffffffffffffffffffffff ffffffffffffffffffffffffffffffffffffffffffffffffffffffffffffffffffffffffffffffffffffffffffffffffffff ffffffffffffffffffffffffffffffffffffffffffffffffffffffffffffffffffffffffffffffffffffffffffffffffffff ffffffffffffffffffffffffffffffffffffffffffffffffffffffffffffffffffffffffffffffffffffffffffffffffffff ffffffffffffffffffffffffffffffffffffffffffffffffffffffffffffffffffffffffffffffffffffffffffffffffffff ffffffffffffffffffffffffffffffffffffffffffffffffffffffffffffffffffffffffffffffffffffffffffffffffffff ffffffffffffffffffffffffffffffffffffffffffffffffffffffffffffffffffffffffffffffffffffffffffffffffffff ffffffffffffffffffffffffffffffffffffffffffffffffffffffffffffffffffffffffffffffffffffffffffffffffffff ffffffffffffffffffffffffffffffffffffffffffffffffffffffffffffffffffffffffffffffffffffffffffffffffffff ffffffffffffffffffffffffffffffffffffffffffffffffffffffffffffffffffffffffffffffffffffffffffffffffffff ffffffffffffffffffffffffffffffffffffffffffffffffffffffffffffffffffffffffffffffffffffffffffffffffffff ffffffffffffffffffffffffffffffffffffffffffffffffffffffffffffffffffffffffffffffffffffffffffffffffffff ffffffffffffffffffffffffffffffffffffffffffffffffffffffffffffffffffffffffffffffffffffffffffffffffffff ffffffffffffffffffffffffffffffffffffffffffffffffffffffffffffffffffffffffffffffffffffffffffffffffffff ffffffffffffffffffffffffffffffffffffffffffffffffffffffffffffffffffffffffffffffffffffffffffffffffffff ffffffffffffffffffffffffffffffffffffffffffffffffffffffffffffffffffffffffffffffffffffffffffffffffffff ffffffffffffffffffffffffffffffffffffffffffffffffffffffffffffffffffffffffffffffffffffffffffffffffffff ffffffffffffffffffffffffffffffffffffffffffffffffffffffffffffffffffffffffffffffffffffffffffffffffffff ffffffffffffffffffffffffffffffffffffffffffffffffffffffffffffffffffffffffffffffffffffffffffffffffffff ffffffffffffffffffffffffffffffffffffffffffffffffffffffffffffffffffffffffffffffffffffffffffffffffffff ffffffffffffffffffffffffffffffffffffffffffffffffffffffffffffffffffffffffffffffffffffffffffffffffffff ffffffffffffffffffffffffffffffffffffffffffffffffffffffffffffffffffffffffffffffffffffffffffffffffffff ffffffffffffffffffffffffffffffffffffffffffffffffffffffffffffffffffffffffffffffffffffffffffffffffffff ffffffffffffffffffffffffffffffffffffffffffffffffffffffffffffffffffffffffffffffffffffffffffffffffffff ffffffffffffffffffffffffffffffffffffffffffffffffffffffffffffffffffffffffffffffffffffffffffffffffffff ffffffffffffffffffffffffffffffffffffffffffffffffffffffffffffffffffffffffffffffffffffffffffffffffffff ffffffffffffffffffffffffffffffffffffffffffffffffffffffffffffffffffffffffffffffffffffffffffffffffffff ffffffffffffffffffffffffffffffffffffffffffffffffffffffffffffffffffffffffffffffffffffffffffffffffffff ffffffffffffffffffffffffffffffffffffffffffffffffffffffffffffffffffffffffffffffffffffffffffffffffffff ffffffffffffffffffffffffffffffffffffffffffffffffffffffffffffffffffffffffffffffffffffffffffffffffffff ffffffffffffffffffffffffffffffffffffffffffffffffffffffffffffffffffffffffffffffffffffffffffffffffffff ffffffffffffffffffffffffffffffffffffffffffffffffffffffffffffffffffffffffffffffffffffffffffffffffffff ffffffffffffffffffffffffffffffffffffffffffffffffffffffffffffffffffffffffffffffffffffffffffffffffffff ffffffffffffffffffffffffffffffffffffffffffffffffffffffffffffffffffffffffffffffffffffffffffffffffffff ffffffffffffffffffffffffffffffffffffffff 10/28: no lasix for now. 10/27: due to rapidly worsening hyponatremia, furosemide has been held. 10/26: lasix increased to 60 bid overnight, Dr. Cruz ordered 100mg IV lasix dose this am. 10/23 -- albumin and pro-BNP ordered for tomorrow; renal function has remained stable, though there is some concern that his malaise today may indicate overdiuresis. 10/22 -- I&Os show patient consistently net negative. 10/21 - Getting Lasix 40 BID with fair diuresis per I + Os BP stable 10/17/18: HOLD on diuresing due to soft BP. HR remains stable. 10/16: CXR looks a little wetter, BNP pending; may need increase laxix CXR in am, continue lasix for now. Last ECHO 09/18 with nl EF< Gr 1 diastolic dysfunction. Cont with Lasix IV, change diet to low sodium. Monitor I & Os. (4) Hyponatremia Status: Chronic Response to Treatment: Stable, Improving Problem Text: 11/01 - Treated as SIADH - improving with diuretics - now on Torsemide as above 10/31/18: continues to improve 10/30: His sodium has improved well with Nephro's help. Appreciate the help. 10/28: hypertonic saline infusion stopped for now but sodium slightly lower than it had been. being managed by Dr Pedro. 10/27: after IV lasix yesterday, repeat sodium showed quick drop to 120 accompanied by [employer] symptoms of diplopia and confusion and hallucinations. Dr. Miri Pedro consulted and patient moved to ICU to administer 3% NS, being given through port. [employer] symptoms have resolved although weakness remains. and 10/26: sodium down to 124 today. will restrict hypotonic fluids, K now normal. possible side effect of SXT/TMP. 10/25: slightly worse sodium and persistent hyperkalemia. this combination can be side effect of SXT/TMP. Has sent communication to Dr. 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 his sxt/tmp is in water, so asked pharmacy to reduce volume that his antibiotic is in. not stable in NS, only D5W. (5) Large B-cell lymphoma Status: Acute Problem Specific Plan: Monitor Clinically Problem Text: 10/16: may need to be rescheduled depending. Follows with [facility] as outpt, scheduled for final chemo 10/21. (6) Pancytopenia due to chemotherapy Status: Resolved Problem Text: s/p Nulasta 10/14 (7) Paroxysmal atrial fibrillation Status: Chronic Response to Treatment: Stable Problem Text: 10/28: rate control remains adequate with beta braden. 10/25: Multaq stopped due to interaction with voriconazole after discussion with Dr. Arellano. rate controlled on Metoprolol Plan/VTE VTE Prophylaxis Ordered?: Yes (Lovenox) Plan Therapy: PT, OT VS, I&O, 24H, Fishbone Vital Signs/I&O Vital Signs Date Time Temp Pulse Resp B/P (MAP) Pulse Ox O2 Delivery O2 Flow Rate FiO2 11/01/18 07:45 96.8 96 24 116/77 (90) 94 3.0 11/01/18 04:00 Nasal Cannula I&O- Last 24 Hours up to 6 AM 11/01/18 06:00 Intake Total 800 ml Output Total 770 ml Balance 30 ml Laboratory Data 24H LABS Laboratory Tests 2 11/01/18 05:38: Immature Granulocyte % (Auto) , White Blood Count 4.5, Red Blood Count 3.96L, Hemoglobin 10.6L, Hematocrit 34.2L, Mean Corpuscular Volume 86.4, Mean Corpuscular Hemoglobin 26.8L, Mean Corpuscular Hemoglobin Concent 31.0L, Red Cell Distribution Width 18.2H, Platelet Count 84L, Lymphocytes # (Auto) , Nucleated Red Blood Cells % (auto) 0.0, Neutrophils 92H, Band Neutrophils 3, Monocytes (Manual) 4, Eosinophils (Manual) 1, Platelet Estimate DECREASED, Anisocytosis 2+, Anion Gap 6L, Glomerular Filtration Rate > 60.0, Blood Urea Nit rogen 16, Creatinine 0.47L, Sodium Level 134L, Potassium Level 3.1#L, Chloride Level 93L, Carbon Dioxide Level 35H, Calcium Level 9.0 CBC/BMP Laboratory Tests 11/01/18 05:38 Red Blood Count 3.96 L, Mean Corpuscular Volume 86.4, Mean Corpuscular Hemoglobin 26.8 L, Mean Corpuscular Hemoglobin Concent 31.0 L, Red Cell Distribution Width 18.2 H, Lymphocytes # (Auto) , Calcium Level 9.0 JILL NOGUEIRA PA-C Nov 01, 2018 10:04 LAWRENCE CARDENAS DO Nov 01, 2018 23:44
[2018-11-01] MEDS: POTASSIUM CHLORIDE 10 MEQ SR TABLET PO ONE ×2 (10:42→10:57)
[2018-11-01] MEDS ORDERED: POTASSIUM CHLORIDE 10% LIQ 20 MEQ/15 ML UDC PO ONE (10:45)
[2018-11-01] MEDS: METOPROLOL SUCC *XL* 12.5MG PER 1/2 TAB (TopROL *XL*) PO SCH (21:27)
--- NOTE | 2018-11-01 21:32 | IPN ---
DATE: 11/01/2018 SUBJECTIVE: The patient was seen and examined the bedside today morning. He is afebrile, hemodynamically stable. His breathing is getting better. His nasal cannula oxygen requirement is at 3 liters; however, it needs to be bumped up when patient moves around. Renal function is stable. Sodium level has improved to 135 now. He is tolerating the oral diuretics now. He denies any other active complaints. OBJECTIVE: Vital signs: Temperature is 96.0 degrees Fahrenheit, blood pressure 117/81, pulse is 103, respiratory rate of 24, saturating 98% on nasal cannula at 3 liters. Intake and output: Urine output recorded is 895 mL yesterday, 925 mL so far today since overnight. Weight in the bed scale is 71 kg, which is stable. PHYSICAL EXAMINATION: GENERAL: The patient is awake, alert, oriented times three, lying in bed, weak and cachectic, wearing nasal cannula. HEAD AND NECK : Extraocular muscles intact. Pupils equally round and reactive to light. Mucous membranes are moist. Neck is supple. Right internal jugular (IJ) Port-A-Cath was noted. CARDIOVASCULAR: S1, S2, regular rate. No edema of the bilateral lower extremities. RESPIRATORY: Mild inspiratory crackles bilaterally at the bases. ABDOMEN: Soft. Positive bowel sounds. Nontender. No organomegaly. GENITOURINARY: He has an indwelling Bowers catheter. Urine in the bag is slightly blood tinged. CENTRAL NERVOUS SYSTEM: No focal deficit. Power is 5/5 in all extremities. LABORATORY REVIEW: CBC showed a WBC of 4.5, hemoglobin 10.6, platelets are 84. BMP showed sodium 134, potassium 3.1, chloride 93, bicarbonate 35, BUN 16, creatinine 0.47, calcium is 9. CURRENT INPATIENT MEDICATIONS: The patient's medications were all reviewed by me. He was given a dose of potassium chloride 40 mEq times one dose at 10 o'clock, and the second dose was at 10:45. He continues to be on sodium chloride tablet 1 gram by mouth three times a day, and he is on torsemide 20 mg by mouth twice a day. ASSESSMENT AND PLAN: 1. Hyponatremia. The patient's sodium has been stable. Continue current dose of torsemide 20 mg by mouth twice a day and salt tablet 1 gram by mouth three times a day 2. Hypoxemia. It is more multifactorial, possible fungal infection versus atypical pneumonia. He continues to be on antibiotics and antifungal. He is tolerating torsemide 20 mg by mouth twice a day. Volume status is optimal. 3. Hypokalemia. The patient was given potassium chloride 40 mEq by mouth today morning.
[2018-11-02] VITALS (20 sets, daily range): BP systolic 108–133; BP diastolic 71–89; O2SAT 91–100
[2018-11-02] MEDS: IPRATROPIUM 0.5MG/ALBUTEROL 2.5MG INH SOL UD 3ML (DUONEB)(J7620) NEB SCH ×4 (02:00→20:50)
[2018-11-02] MEDS: SLF 3 ML SYR IV SCH ×3 (05:24→21:33)
[2018-11-02 06:14] LABS: HEMATOCRIT 33.6 % (42.0-52.0); HEMOGLOBIN 10.6 g/dl (13.5-17.5); MEAN CORPUSCULAR HEMOGLOBIN 27.5 pg (27.0-33.0); MEAN CORPUSCULAR HGB CONC 31.5 g/dl (32.0-36.5); RED BLOOD COUNT 3.86 10^6/uL (4.30-6.10); WHITE BLOOD COUNT 4.2 10^3/uL (4.0-10.0)
[2018-11-02 06:17] LABS: PLATELET COUNT, AUTOMATED 80 10^3/uL (150-450)
[2018-11-02 06:42] LABS: BLOOD UREA NITROGEN 16 MG/DL (7-18); CALCIUM LEVEL 8.3 MG/DL (8.8-10.2); CARBON DIOXIDE LEVEL 35 MEQ/L (21-32); CHLORIDE LEVEL 92 MEQ/L (98-107); CREATININE FOR GFR 0.51 MG/DL (0.70-1.30); GLOMERULAR FILTRATION RATE > 60.0 (>49); GLUCOSE, FASTING 111 MG/DL (70-100); POTASSIUM SERUM 3.5 MEQ/L (3.5-5.1); SODIUM LEVEL 135 MEQ/L (136-145)
[2018-11-02 07:01] LABS: ANISOCYTOSIS 2+; LYMPHOCYTES 4 % (16-52); MONOCYTES 2 % (0-8); NEUTROPHILS 94 % (35-75); PLATELET ESTIMATE DECREASED (NORMAL)
[2018-11-02] MEDS: SODIUM CHLORIDE 1 GM TAB PO SCH ×2 (08:39→22:12)
[2018-11-02] MEDS: ATOVAQUONE SUSP 750MG/5ML 210 ML BTL PO SCH ×2 (08:39→22:12)
[2018-11-02] MEDS: ENOXAPARIN 40 MG/0.4 ML SYRINGE (J1650) SC SCH (08:39)
[2018-11-02] MEDS: predniSONE 20 MG TAB PO SCH (08:39)
[2018-11-02] MEDS: VORICONAZOLE 200MG TABLET (VFEND) PO SCH ×2 (08:39→22:12)
[2018-11-02] MEDS: OMEPRAZOLE 20 MG CAP PO SCH (08:40)
[2018-11-02] MEDS: TORSEMIDE 20 MG TAB PO SCH ×2 (08:40→17:23)
--- NOTE | 2018-11-02 10:32 | IPNPDOC ---
Subjective Date Seen The patient was seen on 11/02/18. Subjective Chief Complaint/HPI Patient sitting in chair comfortably as I entered the room Constitutional: Denies: Chills, Fever Pulmonary: Reports: Dyspnea, Cough; Denies: Pleuritic Chest Pain Cardiovascular: Denies: Chest Pain, Palpitations, Orthopnea, Edema Gastrointestinal: Denies: Nausea, Vomiting, Abdominal Pain Psych: Reports: Mood Normal Objective Physical Examination General Exam: Positive: Alert, Cooperative, No Acute Distress Eye Exam: Positive: PERRLA Neck Exam: Negative: thyromegaly Chest Exam: Positive: Rales (rales noted, no wheezes), Diminished (diffusely diminished with reduced air movement.), Other; Negative: Clear to auscultation, Rhonchi, Wheezing Heart Exam: Positive: Rate Normal, Regular Rhythm, Normal S1, Normal S2; Negative: Tachycardic, Irregular Rhythm Telemetry: Positive: Atrial fibrillation Abdomen Exam: Positive: Normal bowel sounds, Soft; Negative: Tenderness Extremity Exam: Negative: Edema Skin Exam: Positive: Nl turgor and temperature Neuro Exam: Positive: Normal Speech Psych Exam: Positive: Mood NL, Anxiety (mildly) Assessment /Plan Assessment Pt seen, agree with note. He is pleased with his physical activity, as he ambulated from bed to bathroom and then chair, which is the most activity that he has had in a while. He remains on 4L NC, and desaturates easily with activity. Na levels improving and almost normalized today. -- CDT Problems (1) Acute respiratory failure with hypoxemia Status: Acute Response to Treatment: Stable, Improving Discussed With: Nurse, Patient Problem Specific Plan: Monitor Clinically, Repeat Labs Problem Text: 11/02/18: Patient continues to work with PT. ARU rehab consult placed today. He remains on O2 3L n/c at rest. He continues to desat with ambulation. Sputum cx pending. He remains on Atovaquone D#12/21 and on Vorconazole D#10 11/01 - Very slow progress. PT will continue to work on teaching purs lipped breathing and raise oxygen to 6 liters while ambulating for now Remains on Atovaquone D#11/20 for presumptive PCP, On Vorconazole for possible fungal pneumonia (Sputum fungal cultures pending - if negative, would de/c Vorcon especially considering negative serologies and galactomannan Still on Prednisone 10/31/18: mild improvement. continues to require oxygen and desaturates with mild exertion. Continue with diuresis and monitor symptoms. 10/30: Doing better clinically. Still on 4L via nasal cannula, but if he moves he doesn't drop quite as fast or for quite as long. 10/28: subjectively improving. on voriconazole and atovaquone. 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 CXR looks a bit better. 10/25: voriconazole added yesterday to Multaq stopped; sxt/tmp dose optimized to 20mg/kg 10/24: ct done today. report says similar but slightly better to previous ct. await Dr. Cruz opinion about the study. 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 Plan CT tomorrow and possible bronch. He has told me that he is not enthusiastic about potentially being on a ventilator, but accepts that risk. 10/21 -- patient remains on Bactrim. If not improved by Wednesday, which is looking likely, plan bronchoscopy. Oxygen demands remain high, and patient is desatting with minimal exertion. Patient voices desire for full code status. D7 empiric Bactrim for PJP, s/p Zosyn x 6 days - stoppped by ID 10/20 Pulmonary consult pending due to severe hypoxemia with minimal exertion Unable to give sputum for Culture (No productive sputum) 10/19/18: s/p ID consult. Duonebs added q 6 hrs. DC solu-medrol. Start Prednisone 60 mg po bid. 10/18/18: repeat bl cxs and fungal smear remain pending. Patient continues with dyspnea. CT Chest competed and demonstrates improvement. see report below. 10/17/18 fungal smear/culture and DFA staining obtained (ordered 10/15!) 10/17 CT chest: The diffuse bilateral interstitial and alveolar infiltrates identified on 09/23/2018 have decreased. The bilateral pleural effusions have decreased. The extensive mediastinal lymph node enlargement identified on 05/19/2089, has resolved. 10/17/18: patient states he feels significantly better. Continues to require 5 LNC. HOLD on diuresing due to soft BP. HR remains stable. Bl cx and sputum cx pending. 10/16: LDH elevated above baseline elevation from lymphoma which can be seen c PJP. Sulfa/TMP started yesterday. Hypoxic with minimal exertion. Diuresis has diminished since change to po lasix. will repeat BNP, may need IV lasix again. 09/28/18 Fungitell >500-Ddx: PJP, Lise spp, Aspergillus less likely given 09/24 A flavus/fumigatus, niger Ab -/galacto Ag - (2) Gram-positive cocci in clusters Status: Resolved Response to Treatment: Stable Problem Text: 11/02/18: BC negative after 5 days 10/19/18: repeat bl. cx negative. 10/17 BCX2 P 10/13 BCX1/1 + for micrococcus. most likley contaminant. will repeat BCX (3) Acute on chronic diastolic (congestive) heart failure Status: Acute Response to Treatment: Stable, Improving Problem Specific Plan: Monitor Clinically Problem Text: 11/02/18: Appears well compensated. Remains on Torsemide 20 mg po bid 11/01 - Now on Torsemide 20 BID per nephrology 10/30: He is being carefully diuresed by the Nephro team. Will defer to them for further management. hdfffffffffffffffffffffffffffffffffffffffffffffffffffff ffffffffffffffffffffffffffffffffffffffffffffffffffffffffffffffffffffffffffffffffffffffffffffffffffff ffffffffffffffffffffffffffffffffffffffffffffffffffffffffffffffffffffffffffffffffffffffffffffffffffff ffffffffffffffffffffffffffffffffffffffffffffffffffffffffffffffffffffffffffffffffffffffffffffffffffff ffffffffffffffffffffffffffffffffffffffffffffffffffffffffffffffffffffffffffffffffffffffffffffffffffff ffffffffffffffffffffffffffffffffffffffffffffffffffffffffffffffffffffffffffffffffffffffffffffffffffff ffffffffffffffffffffffffffffffffffffffffffffffffffffffffffffffffffffffffffffffffffffffffffffffffffff ffffffffffffffffffffffffffffffffffffffffffffffffffffffffffffffffffffffffffffffffffffffffffffffffffff ffffffffffffffffffffffffffffffffffffffffffffffffffffffffffffffffffffffffffffffffffffffffffffffffffff ffffffffffffffffffffffffffffffffffffffffffffffffffffffffffffffffffffffffffffffffffffffffffffffffffff ffffffffffffffffffffffffffffffffffffffffffffffffffffffffffffffffffffffffffffffffffffffffffffffffffff ffffffffffffffffffffffffffffffffffffffffffffffffffffffffffffffffffffffffffffffffffffffffffffffffffff ffffffffffffffffffffffffffffffffffffffffffffffffffffffffffffffffffffffffffffffffffffffffffffffffffff ffffffffffffffffffffffffffffffffffffffffffffffffffffffffffffffffffffffffffffffffffffffffffffffffffff ffffffffffffffffffffffffffffffffffffffffffffffffffffffffffffffffffffffffffffffffffffffffffffffffffff ffffffffffffffffffffffffffffffffffffffffffffffffffffffffffffffffffffffffffffffffffffffffffffffffffff ffffffffffffffffffffffffffffffffffffffffffffffffffffffffffffffffffffffffffffffffffffffffffffffffffff ffffffffffffffffffffffffffffffffffffffffffffffffffffffffffffffffffffffffffffffffffffffffffffffffffff ffffffffffffffffffffffffffffffffffffffffffffffffffffffffffffffffffffffffffffffffffffffffffffffffffff ffffffffffffffffffffffffffffffffffffffffffffffffffffffffffffffffffffffffffffffffffffffffffffffffffff ffffffffffffffffffffffffffffffffffffffffffffffffffffffffffffffffffffffffffffffffffffffffffffffffffff ffffffffffffffffffffffffffffffffffffffffffffffffffffffffffffffffffffffffffffffffffffffffffffffffffff ffffffffffffffffffffffffffffffffffffffffffffffffffffffffffffffffffffffffffffffffffffffffffffffffffff ffffffffffffffffffffffffffffffffffffffffffffffffffffffffffffffffffffffffffffffffffffffffffffffffffff ffffffffffffffffffffffffffffffffffffffffffffffffffffffffffffffffffffffffffffffffffffffffffffffffffff ffffffffffffffffffffffffffffffffffffffffffffffffffffffffffffffffffffffffffffffffffffffffffffffffffff ffffffffffffffffffffffffffffffffffffffffffffffffffffffffffffffffffffffffffffffffffffffffffffffffffff ffffffffffffffffffffffffffffffffffffffffffffffffffffffffffffffffffffffffffffffffffffffffffffffffffff ffffffffffffffffffffffffffffffffffffffffffffffffffffffffffffffffffffffffffffffffffffffffffffffffffff ffffffffffffffffffffffffffffffffffffffffffffffffffffffffffffffffffffffffffffffffffffffffffffffffffff ffffffffffffffffffffffffffffffffffffffffffffffffffffffffffffffffffffffffffffffffffffffffffffffffffff ffffffffffffffffffffffffffffffffffffffffffffffffffffffffffffffffffffffffffffffffffffffffffffffffffff ffffffffffffffffffffffffffffffffffffffffffffffffffffffffffffffffffffffffffffffffffffffffffffffffffff ffffffffffffffffffffffffffffffffffffffffffffffffffffffffffffffffffffffffffffffffffffffffffffffffffff ffffffffffffffffffffffffffffffffffffffffffffffffffffffffffffffffffffffffffffffffffffffffffffffffffff ffffffffffffffffffffffffffffffffffffffffffffffffffffffffffffffffffffffffffffffffffffffffffffffffffff ffffffffffffffffffffffffffffffffffffffffffffffffffffffffffffffffffffffffffffffffffffffffffffffffffff ffffffffffffffffffffffffffffffffffffffffffffffffffffffffffffffffffffffffffffffffffffffffffffffffffff ffffffffffffffffffffffffffffffffffffffffffffffffffffffffffffffffffffffffffffffffffffffffffffffffffff ffffffffffffffffffffffffffffffffffffffffffffffffffffffffffffffffffffffffffffffffffffffffffffffffffff ffffffffffffffffffffffffffffffffffffffffffffffffffffffffffffffffffffffffffffffffffffffffffffffffffff ffffffffffffffffffffffffffffffffffffffffffffffffffffffffffffffffffffffffffffffffffffffffffffffffffff ffffffffffffffffffffffffffffffffffffffffffffffffffffffffffffffffffffffffffffffffffffffffffffffffffff ffffffffffffffffffffffffffffffffffffffffffffffffffffffffffffffffffffffffffffffffffffffffffffffffffff ffffffffffffffffffffffffffffffffffffffffffffffffffffffffffffffffffffffffffffffffffffffffffffffffffff ffffffffffffffffffffffffffffffffffffffffffffffffffffffffffffffffffffffffffffffffffffffffffffffffffff ffffffffffffffffffffffffffffffffffffffffffffffffffffffffffffffffffffffffffffffffffffffffffffffffffff ffffffffffffffffffffffffffffffffffffffffffffffffffffffffffffffffffffffffffffffffffffffffffffffffffff ffffffffffffffffffffffffffffffffffffffffffffffffffffffffffffffffffffffffffffffffffffffffffffffffffff ffffffffffffffffffffffffffffffffffffffffffffffffffffffffffffffffffffffffffffffffffffffffffffffffffff ffffffffffffffffffffffffffffffffffffffffffffffffffffffffffffffffffffffffffffffffffffffffffffffffffff ffffffffffffffffffffffffffffffffffffffffffffffffffffffffffffffffffffffffffffffffffffffffffffffffffff ffffffffffffffffffffffffffffffffffffffffffffffffffffffffffffffffffffffffffffffffffffffffffffffffffff ffffffffffffffffffffffffffffffffffffffffffffffffffffffffffffffffffffffffffffffffffffffffffffffffffff ffffffffffffffffffffffffffffffffffffffffffffffffffffffffffffffffffffffffffffffffffffffffffffffffffff ffffffffffffffffffffffffffffffffffffffffffffffffffffffffffffffffffffffffffffffffffffffffffffffffffff ffffffffffffffffffffffffffffffffffffffffffffffffffffffffffffffffffffffffffffffffffffffffffffffffffff ffffffffffffffffffffffffffffffffffffffffffffffffffffffffffffffffffffffffffffffffffffffffffffffffffff ffffffffffffffffffffffffffffffffffffffffffffffffffffffffffffffffffffffffffffffffffffffffffffffffffff ffffffffffffffffffffffffffffffffffffffffffffffffffffffffffffffffffffffffffffffffffffffffffffffffffff ffffffffffffffffffffffffffffffffffffffffffffffffffffffffffffffffffffffffffffffffffffffffffffffffffff ffffffffffffffffffffffffffffffffffffffffffffffffffffffffffffffffffffffffffffffffffffffffffffffffffff ffffffffffffffffffffffffffffffffffffffffffffffffffffffffffffffffffffffffffffffffffffffffffffffffffff ffffffffffffffffffffffffffffffffffffffffffffffffffffffffffffffffffffffffffffffffffffffffffffffffffff ffffffffffffffffffffffffffffffffffffffffffffffffffffffffffffffffffffffffffffffffffffffffffffffffffff ffffffffffffffffffffffffffffffffffffffffffffffffffffffffffffffffffffffffffffffffffffffffffffffffffff ffffffffffffffffffffffffffffffffffffffffffffffffffffffffffffffffffffffffffffffffffffffffffffffffffff ffffffffffffffffffffffffffffffffffffffffffffffffffffffffffffffffffffffffffffffffffffffffffffffffffff ffffffffffffffffffffffffffffffffffffffffffffffffffffffffffffffffffffffffffffffffffffffffffffffffffff ffffffffffffffffffffffffffffffffffffffffffffffffffffffffffffffffffffffffffffffffffffffffffffffffffff ffffffffffffffffffffffffffffffffffffffffffffffffffffffffffffffffffffffffffffffffffffffffffffffffffff ffffffffffffffffffffffffffffffffffffffffffffffffffffffffffffffffffffffffffffffffffffffffffffffffffff ffffffffffffffffffffffffffffffffffffffffffffffffffffffffffffffffffffffffffffffffffffffffffffffffffff ffffffffffffffffffffffffffffffffffffffffffffffffffffffffffffffffffffffffffffffffffffffffffffffffffff ffffffffffffffffffffffffffffffffffffffffffffffffffffffffffffffffffffffffffffffffffffffffffffffffffff fffffffffffffffffffff 10/28: no lasix for now. 10/27: due to rapidly worsening hyponatremia, furosemide has been held. 10/26: lasix increased to 60 bid overnight, Dr. Cruz ordered 100mg IV lasix dose this am. 10/23 -- albumin and pro-BNP ordered for tomorrow; renal function has remained stable, though there is some concern that his malaise today may indicate overdiuresis. 10/22 -- I&Os show patient consistently net negative. 10/21 - Getting Lasix 40 BID with fair diuresis per I + Os BP stable 10/17/18: HOLD on diuresing due to soft BP. HR remains stable. 10/16: CXR looks a little wetter, BNP pending; may need increase laxix CXR in am, continue lasix for now. Last ECHO 09/18 with nl EF< Gr 1 diastolic dysfunction. Cont with Lasix IV, change diet to low sodium. Monitor I & Os. (4) Hyponatremia Status: Chronic Response to Treatment: Stable, Improving Problem Text: 11/02/18: Slow improvement, Na+ 135 11/01 - Treated as SIADH - improving with diuretics - now on Torsemide as above 10/31/18: continues to improve 10/30: His sodium has improved well with Nephro's help. Appreciate the help. 10/28: hypertonic saline infusion stopped for now but sodium slightly lower than it had been. being managed by Dr Pedro. 10/27: after IV lasix yesterday, repeat sodium showed quick drop to 120 accompanied by [employer] symptoms of diplopia and confusion and hallucinations. Dr. Miri Pedro consulted and patient moved to ICU to administer 3% NS, being given through port. [employer] symptoms have resolved although weakness remains. and 10/26: sodium down to 124 today. will restrict hypotonic fluids, K now normal. possible side effect of SXT/TMP. 10/25: slightly worse sodium and persistent hyperkalemia. this combination can be side effect of SXT/TMP. Has sent communication to Dr. 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 his sxt/tmp is in water, so asked pharmacy to reduce volume that his antibiotic is in. not stable in NS, only D5W. (5) Large B-cell lymphoma Status: Acute Problem Specific Plan: Monitor Clinically Problem Text: 10/16: may need to be rescheduled depending. Follows with [facility] Onc as outpt, scheduled for final chemo 10/21. (6) Pancytopenia due to chemotherapy Status: Resolved Problem Text: s/p Nulasta 10/14 (7) Paroxysmal atrial fibrillation Status: Chronic Response to Treatment: Stable Problem Text: 10/28: rate control remains adequate with beta braden. 10/25: Multaq stopped due to interaction with voriconazole after discussion with Dr. Arellano. rate controlled on Metoprolol Plan/VTE VTE Prophylaxis Ordered?: Yes (Lovenox) Plan Therapy: PT, OT VS, I&O, 24H, Fishbone Vital Signs/I&O Vital Signs Date Time Temp Pulse Resp B/P (MAP) Pulse Ox O2 Delivery O2 Flow Rate FiO2 11/02/18 07:52 97.0 95 20 116/71 (86) 98 3.0 11/02/18 06:00 Nasal Cannula I&O- Last 24 Hours up to 6 AM 11/02/18 06:00 Intake Total 330 ml Output Total 1650 ml Balance -1320 ml Laboratory Data 24H LABS Laboratory Tests 2 11/02/18 05:44: Immature Granulocyte % (Auto) , White Blood Count 4.2, Red Blood Count 3.86L, Hemoglobin 10.6L, Hematocrit 33.6L, Mean Corpuscular Volume 87.0, Mean Corpuscular Hemoglobin 27.5, Mean Corpuscular Hemoglobin Concent 31.5L, Red Cell Distribution Width 18.7H, Platelet Count 80L, Lymphocytes # (Auto) , Nucleated Red Blood Cells % (auto) 0.0, Neutrophils 94H, Lymphocytes (Manual) 4L, Monocytes (Manual) 2, Platelet Estimate DECREASED, Immature Platelet Fraction 3.6, Anisocytosis 2+, Anion Gap 8, Glomerular Filtration Rate > 60.0, Blood Urea Nitrogen 16, Creatinine 0.51L, Sodium Level 135L, Potassium Level 3.5, Chloride Level 92L, Carbon Dioxide Level 35H, Calcium Level 8.3L CBC/BMP Laboratory Tests 11/02/18 05:44 Red Blood Count 3.86 L, Mean Corpuscular Volume 87.0, Mean Corpuscular Hemo globin 27.5, Mean Corpuscular Hemoglobin Concent 31.5 L, Red Cell Distribution Width 18.7 H, Lymphocytes # (Auto) , Calcium Level 8.3 L JOHN DIAZ Nov 02, 2018 10:32 LAWRENCE CARDENAS DO Nov 03, 2018 00:10
[2018-11-02] MEDS: POTASSIUM CHLORIDE 10 MEQ SR TABLET PO SCH (11:01)
[2018-11-02] MEDS: METOPROLOL SUCC *XL* 12.5MG PER 1/2 TAB (TopROL *XL*) PO SCH (22:12)
[2018-11-03] VITALS (18 sets, daily range): BP systolic 110–131; BP diastolic 77–93; O2SAT 93–100
[2018-11-03] MEDS: IPRATROPIUM 0.5MG/ALBUTEROL 2.5MG INH SOL UD 3ML (DUONEB)(J7620) NEB SCH ×3 (02:00→15:08)
[2018-11-03 05:12] LABS: HEMATOCRIT 33.7 % (42.0-52.0); HEMOGLOBIN 10.3 g/dl (13.5-17.5); MEAN CORPUSCULAR HGB CONC 30.6 g/dl (32.0-36.5); MEAN CORPUSCULAR VOLUME 88.5 fl (80.0-96.0); RED BLOOD COUNT 3.81 10^6/uL (4.30-6.10)
[2018-11-03 05:28] LABS: PLATELET COUNT, AUTOMATED 81 10^3/uL (150-450)
[2018-11-03] MEDS: SLF 3 ML SYR IV SCH ×3 (05:41→21:30)
[2018-11-03 05:47] LABS: BLOOD UREA NITROGEN 18 MG/DL (7-18); CALCIUM LEVEL 8.5 MG/DL (8.8-10.2); CARBON DIOXIDE LEVEL 40 MEQ/L (21-32); CHLORIDE LEVEL 92 MEQ/L (98-107); CREATININE FOR GFR 0.55 MG/DL (0.70-1.30); GLOMERULAR FILTRATION RATE > 60.0 (>49); GLUCOSE, FASTING 104 MG/DL (70-100); SODIUM LEVEL 140 MEQ/L (136-145)
[2018-11-03 06:35] LABS: ANISOCYTOSIS 3+; EOSINOPHILS 1 % (0-5); LYMPHOCYTES 4 % (16-52); METAMYELOCYTES 1 % (0-0); MONOCYTES 8 % (0-8); MYELOCYTES 1 % (0-0); NEUTROPHILS 85 % (35-75); PLATELET ESTIMATE DECREASED (NORMAL)
[2018-11-03 06:36] LABS: HYPOCHROMASIA 1+
[2018-11-03] MEDS: predniSONE 20 MG TAB PO SCH (08:57)
[2018-11-03] MEDS: SODIUM CHLORIDE 1 GM TAB PO SCH ×2 (08:57→21:26)
[2018-11-03] MEDS: POTASSIUM CHLORIDE 10 MEQ SR TABLET PO SCH (08:57)
[2018-11-03] MEDS: OMEPRAZOLE 20 MG CAP PO SCH (08:58)
[2018-11-03] MEDS: ENOXAPARIN 40 MG/0.4 ML SYRINGE (J1650) SC SCH (08:58)
[2018-11-03] MEDS: TORSEMIDE 20 MG TAB PO SCH ×2 (08:58→16:54)
[2018-11-03] MEDS: VORICONAZOLE 200MG TABLET (VFEND) PO SCH ×2 (08:58→21:26)
[2018-11-03] MEDS: ATOVAQUONE SUSP 750MG/5ML 210 ML BTL PO SCH ×2 (08:59→21:26)
--- NOTE | 2018-11-03 10:21 | IPNPDOC ---
Subjective Date Seen The patient was seen on 11/03/18. Subjective Chief Complaint/HPI Pt this morning without new concerns. He states that he feels a little better everyday, frustrated this has breathing isn't quite following suit with him. He fatigues easily with any physical activity. General: Reports: Fatigue Constitutional: Denies: Chills, Fever Skin: Denies: Rash Pulmonary: Reports: Dyspnea; Denies: Cough Cardiovascular: Denies: Chest Pain, Palpitations Gastrointestinal: Denies: Nausea, Vomiting, Diarrhea Neurological: Reports: Weakness Psych: Reports: Mood Normal Objective Physical Examination General Exam: Positive: Alert, Cooperative, No Acute Distress Neck Exam: Negative: thyromegaly Chest Exam: Positive: Rales (rales noted, no wheezes), Diminished (diffusely diminished with reduced air movement.), Other; Negative: Clear to auscultation, Rhonchi, Wheezing Heart Exam: Positive: Rate Normal, Regular Rhythm, Normal S1, Normal S2; Negative: Tachycardic, Irregular Rhythm Telemetry: Positive: Atrial fibrillation Abdomen Exam: Positive: Normal bowel sounds, Soft; Negative: Tenderness Male Exam: Negative: Edema Extremity Exam: Negative: Edema Psych Exam: Positive: Mood NL Assessment /Plan Problems (1) Acute respiratory failure with hypoxemia Status: Acute Response to Treatment: Stable, Improving Discussed With: Nurse, Patient Problem Specific Plan: Monitor Clinically, Repeat Labs Problem Text: 11/03 transfer to the floor today. Await input from ARU, if candidate medically ready for transfer, if not, plan for transition to [facility] until STR bed available. 11/02/18: Patient continues to work with PT. ARU rehab consult placed today. He remains on O2 3L n/c at rest. He continues to desat with ambulation. Sputum cx pending. He remains on Atovaquone D#12/21 and on Vorconazole D#10 11/01 - Very slow progress. PT will continue to work on teaching purs lipped breathing and raise oxygen to 6 liters while ambulating for now Remains on Atovaquone D#11/20 for presumptive PCP, On Vorconazole for possible fungal pneumonia (Sputum fungal cultures pending - if negative, would de/c Vorcon especially considering negative serologies and galactomannan Still on Prednisone 10/31/18: mild improvement. continues to require oxygen and desaturates with mild exertion. Continue with diuresis and monitor symptoms. 10/30: Doing better clinically. Still on 4L via nasal cannula, but if he moves he doesn't drop quite as fast or for quite as long. 10/28: subjectively improving. on voriconazole and atovaquone. 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 CXR looks a bit better. 10/25: voriconazole added yesterday to Multaq stopped; sxt/tmp dose optimized to 20mg/kg 10/24: ct done today. report says similar but slightly better to previous ct. await Dr. Cruz opinion about the study. 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 Plan CT tomorrow and possible bronch. He has told me that he is not enthusiastic about potentially being on a ventilator, but accepts that risk. 10/21 -- patient remains on Bactrim. If not improved by Wednesday, which is looking likely, plan bronchoscopy. Oxygen demands remain high, and patient is desatting with minimal exertion. Patient voices desire for full code status. D7 empiric Bactrim for PJP, s/p Zosyn x 6 days - stoppped by ID 10/20 Pulmonary consult pending due to severe hypoxemia with minimal exertion Unable to give sputum for Culture (No productive sputum) 10/19/18: s/p ID consult. Duonebs added q 6 hrs. DC solu-medrol. Start Prednisone 60 mg po bid. 10/18/18: repeat bl cxs and fungal smear remain pending. Patient continues with dyspnea. CT Chest competed and demonstrates improvement. see report below. 10/17/18 fungal smear/culture and DFA staining obtained (ordered 10/15!) 10/17 CT chest: The diffuse bilateral interstitial and alveolar infiltrates identified on 09/23/2018 have decreased. The bilateral pleural effusions have decreased. The extensive mediastinal lymph node enlargement identified on 05/19/2089, has resolved. 10/17/18: patient states he feels significantly better. Continues to require 5 LNC. HOLD on diuresing due to soft BP. HR remains stable. Bl cx and sputum cx pending. 10/16: LDH elevated above baseline elevation from lymphoma which can be seen c PJP. Sulfa/TMP started yesterday. Hypoxic with minimal exertion. Diuresis has diminished since change to po lasix. will repeat BNP, may need IV lasix again. 09/28/18 Fungitell >500-Ddx: PJP, Lise spp, Aspergillus less likely given 09/24 A flavus/fumigatus, niger Ab -/galacto Ag - (2) Gram-positive cocci in clusters Status: Resolved Response to Treatment: Stable Problem Text: 11/02/18: BC negative after 5 days 10/19/18: repeat bl. cx negative. 10/17 BCX2 P 10/13 BCX1/1 + for micrococcus. most likley contaminant. will repeat BCX (3) Acute on chronic diastolic (congestive) heart failure Status: Acute Response to Treatment: Stable, Improving Problem Specific Plan: Monitor Clinically Problem Text: 11/02/18: Appears well compensated. Remains on Torsemide 20 mg po bid 11/01 - Now on Torsemide 20 BID per nephrology 10/30: He is being carefully diuresed by the Nephro team. Will defer to them for further management. hdffffffffffffffffffff ffffffffffffffffffffffffffffffffffffffffffffffffffffffffffffffffffffffffffffffffffffffffffffffffffff ffffffffffffffffffffffffffffffffffffffffffffffffffffffffffffffffffffffffffffffffffffffffffffffffffff ffffffffffffffffffffffffffffffffffffffffffffffffffffffffffffffffffffffffffffffffffffffffffffffffffff ffffffffffffffffffffffffffffffffffffffffffffffffffffffffffffffffffffffffffffffffffffffffffffffffffff ffffffffffffffffffffffffffffffffffffffffffffffffffffffffffffffffffffffffffffffffffffffffffffffffffff ffffffffffffffffffffffffffffffffffffffffffffffffffffffffffffffffffffffffffffffffffffffffffffffffffff ffffffffffffffffffffffffffffffffffffffffffffffffffffffffffffffffffffffffffffffffffffffffffffffffffff ffffffffffffffffffffffffffffffffffffffffffffffffffffffffffffffffffffffffffffffffffffffffffffffffffff ffffffffffffffffffffffffffffffffffffffffffffffffffffffffffffffffffffffffffffffffffffffffffffffffffff ffffffffffffffffffffffffffffffffffffffffffffffffffffffffffffffffffffffffffffffffffffffffffffffffffff ffffffffffffffffffffffffffffffffffffffffffffffffffffffffffffffffffffffffffffffffffffffffffffffffffff ffffffffffffffffffffffffffffffffffffffffffffffffffffffffffffffffffffffffffffffffffffffffffffffffffff ffffffffffffffffffffffffffffffffffffffffffffffffffffffffffffffffffffffffffffffffffffffffffffffffffff ffffffffffffffffffffffffffffffffffffffffffffffffffffffffffffffffffffffffffffffffffffffffffffffffffff ffffffffffffffffffffffffffffffffffffffffffffffffffffffffffffffffffffffffffffffffffffffffffffffffffff ffffffffffffffffffffffffffffffffffffffffffffffffffffffffffffffffffffffffffffffffffffffffffffffffffff ffffffffffffffffffffffffffffffffffffffffffffffffffffffffffffffffffffffffffffffffffffffffffffffffffff ffffffffffffffffffffffffffffffffffffffffffffffffffffffffffffffffffffffffffffffffffffffffffffffffffff ffffffffffffffffffffffffffffffffffffffffffffffffffffffffffffffffffffffffffffffffffffffffffffffffffff ffffffffffffffffffffffffffffffffffffffffffffffffffffffffffffffffffffffffffffffffffffffffffffffffffff ffffffffffffffffffffffffffffffffffffffffffffffffffffffffffffffffffffffffffffffffffffffffffffffffffff ffffffffffffffffffffffffffffffffffffffffffffffffffffffffffffffffffffffffffffffffffffffffffffffffffff ffffffffffffffffffffffffffffffffffffffffffffffffffffffffffffffffffffffffffffffffffffffffffffffffffff ffffffffffffffffffffffffffffffffffffffffffffffffffffffffffffffffffffffffffffffffffffffffffffffffffff ffffffffffffffffffffffffffffffffffffffffffffffffffffffffffffffffffffffffffffffffffffffffffffffffffff ffffffffffffffffffffffffffffffffffffffffffffffffffffffffffffffffffffffffffffffffffffffffffffffffffff ffffffffffffffffffffffffffffffffffffffffffffffffffffffffffffffffffffffffffffffffffffffffffffffffffff ffffffffffffffffffffffffffffffffffffffffffffffffffffffffffffffffffffffffffffffffffffffffffffffffffff ffffffffffffffffffffffffffffffffffffffffffffffffffffffffffffffffffffffffffffffffffffffffffffffffffff ffffffffffffffffffffffffffffffffffffffffffffffffffffffffffffffffffffffffffffffffffffffffffffffffffff ffffffffffffffffffffffffffffffffffffffffffffffffffffffffffffffffffffffffffffffffffffffffffffffffffff ffffffffffffffffffffffffffffffffffffffffffffffffffffffffffffffffffffffffffffffffffffffffffffffffffff ffffffffffffffffffffffffffffffffffffffffffffffffffffffffffffffffffffffffffffffffffffffffffffffffffff ffffffffffffffffffffffffffffffffffffffffffffffffffffffffffffffffffffffffffffffffffffffffffffffffffff ffffffffffffffffffffffffffffffffffffffffffffffffffffffffffffffffffffffffffffffffffffffffffffffffffff ffffffffffffffffffffffffffffffffffffffffffffffffffffffffffffffffffffffffffffffffffffffffffffffffffff ffffffffffffffffffffffffffffffffffffffffffffffffffffffffffffffffffffffffffffffffffffffffffffffffffff ffffffffffffffffffffffffffffffffffffffffffffffffffffffffffffffffffffffffffffffffffffffffffffffffffff ffffffffffffffffffffffffffffffffffffffffffffffffffffffffffffffffffffffffffffffffffffffffffffffffffff ffffffffffffffffffffffffffffffffffffffffffffffffffffffffffffffffffffffffffffffffffffffffffffffffffff ffffffffffffffffffffffffffffffffffffffffffffffffffffffffffffffffffffffffffffffffffffffffffffffffffff ffffffffffffffffffffffffffffffffffffffffffffffffffffffffffffffffffffffffffffffffffffffffffffffffffff ffffffffffffffffffffffffffffffffffffffffffffffffffffffffffffffffffffffffffffffffffffffffffffffffffff ffffffffffffffffffffffffffffffffffffffffffffffffffffffffffffffffffffffffffffffffffffffffffffffffffff ffffffffffffffffffffffffffffffffffffffffffffffffffffffffffffffffffffffffffffffffffffffffffffffffffff ffffffffffffffffffffffffffffffffffffffffffffffffffffffffffffffffffffffffffffffffffffffffffffffffffff ffffffffffffffffffffffffffffffffffffffffffffffffffffffffffffffffffffffffffffffffffffffffffffffffffff ffffffffffffffffffffffffffffffffffffffffffffffffffffffffffffffffffffffffffffffffffffffffffffffffffff ffffffffffffffffffffffffffffffffffffffffffffffffffffffffffffffffffffffffffffffffffffffffffffffffffff ffffffffffffffffffffffffffffffffffffffffffffffffffffffffffffffffffffffffffffffffffffffffffffffffffff ffffffffffffffffffffffffffffffffffffffffffffffffffffffffffffffffffffffffffffffffffffffffffffffffffff ffffffffffffffffffffffffffffffffffffffffffffffffffffffffffffffffffffffffffffffffffffffffffffffffffff ffffffffffffffffffffffffffffffffffffffffffffffffffffffffffffffffffffffffffffffffffffffffffffffffffff ffffffffffffffffffffffffffffffffffffffffffffffffffffffffffffffffffffffffffffffffffffffffffffffffffff ffffffffffffffffffffffffffffffffffffffffffffffffffffffffffffffffffffffffffffffffffffffffffffffffffff ffffffffffffffffffffffffffffffffffffffffffffffffffffffffffffffffffffffffffffffffffffffffffffffffffff ffffffffffffffffffffffffffffffffffffffffffffffffffffffffffffffffffffffffffffffffffffffffffffffffffff ffffffffffffffffffffffffffffffffffffffffffffffffffffffffffffffffffffffffffffffffffffffffffffffffffff ffffffffffffffffffffffffffffffffffffffffffffffffffffffffffffffffffffffffffffffffffffffffffffffffffff ffffffffffffffffffffffffffffffffffffffffffffffffffffffffffffffffffffffffffffffffffffffffffffffffffff ffffffffffffffffffffffffffffffffffffffffffffffffffffffffffffffffffffffffffffffffffffffffffffffffffff ffffffffffffffffffffffffffffffffffffffffffffffffffffffffffffffffffffffffffffffffffffffffffffffffffff ffffffffffffffffffffffffffffffffffffffffffffffffffffffffffffffffffffffffffffffffffffffffffffffffffff ffffffffffffffffffffffffffffffffffffffffffffffffffffffffffffffffffffffffffffffffffffffffffffffffffff ffffffffffffffffffffffffffffffffffffffffffffffffffffffffffffffffffffffffffffffffffffffffffffffffffff ffffffffffffffffffffffffffffffffffffffffffffffffffffffffffffffffffffffffffffffffffffffffffffffffffff ffffffffffffffffffffffffffffffffffffffffffffffffffffffffffffffffffffffffffffffffffffffffffffffffffff ffffffffffffffffffffffffffffffffffffffffffffffffffffffffffffffffffffffffffffffffffffffffffffffffffff ffffffffffffffffffffffffffffffffffffffffffffffffffffffffffffffffffffffffffffffffffffffffffffffffffff ffffffffffffffffffffffffffffffffffffffffffffffffffffffffffffffffffffffffffffffffffffffffffffffffffff ffffffffffffffffffffffffffffffffffffffffffffffffffffffffffffffffffffffffffffffffffffffffffffffffffff ffffffffffffffffffffffffffffffffffffffffffffffffffffffffffffffffffffffffffffffffffffffffffffffffffff ffffffffffffffffffffffffffffffffffffffffffffffffffffffffffffffffffffffffffffffffffffffffffffffffffff ffffffffffffffffffffffffffffffffffffffffffffffffffffffffffffffffffffffffffffffffffffffffffffffffffff ffffffffffffffffffffffffffffffffffffffffffffffffffffff 10/28: no lasix for now. 10/27: due to rapidly worsening hyponatremia, furosemide has been held. 10/26: lasix increased to 60 bid overnight, Dr. Cruz ordered 100mg IV lasix dose this am. 10/23 -- albumin and pro-BNP ordered for tomorrow; renal function has remained stable, though there is some concern that his malaise today may indicate overd iuresis. 10/22 -- I&Os show patient consistently net negative. 10/21 - Getting Lasix 40 BID with fair diuresis per I + Os BP stable 10/17/18: HOLD on diuresing due to soft BP. HR remains stable. 10/16: CXR looks a little wetter, BNP pending; may need increase laxix CXR in am, continue lasix for now. Last ECHO 09/18 with nl EF< Gr 1 diastolic dysfunction. Cont with Lasix IV, change diet to low sodium. Monitor I & Os. (4) Hyponatremia Status: Resolved Response to Treatment: Stable, Improving Problem Text: 11/03 Na 140, monitor. 11/02/18: Slow improvement, Na+ 135 11/01 - Treated as SIADH - improving with diuretics - now on Torsemide as above 10/31/18: continues to improve 10/30: His sodium has improved well with Nephro's help. Appreciate the help. 10/28: hypertonic saline infusion stopped for now but sodium slightly lower than it had been. being managed by Dr Pedro. 10/27: after IV lasix yesterday, repeat sodium showed quick drop to 120 accompanied by COIN ROLLING MACHINE OPERATOR symptoms of diplopia and confusion and hallucinations. Dr. Miri Pedro consulted and patient moved to ICU to administer 3% NS, being given thr ough port. COIN ROLLING MACHINE OPERATOR symptoms have resolved although weakness remains. and 10/26: sodium down to 124 today. will restrict hypotonic fluids, K now normal. possible side effect of SXT/TMP. 10/25: slightly worse sodium and persistent hyperkalemia. this combination can be side effect of SXT/TMP. Has sent communication to Dr. 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 his sxt/tmp is in water, so asked pharmacy to reduce volume that his antibiotic is in. not stable in NS, only D5W. (5) Large B-cell lymphoma Status: Acute Problem Specific Plan: Monitor Clinically Problem Text: 10/16: may need to be rescheduled depending. Follows with [facility] On[facility] as outpt, scheduled for final chemo 10/21. (6) Pancytopenia due to chemotherapy Status: Resolved Problem Text: s/p Nulasta 10/14 (7) Paroxysmal atrial fibrillation Status: Chronic Response to Treatment: Stable Problem Text: 10/28: rate control remains adequate with beta braden. 10/25: Multaq stopped due to interaction with voriconazole after discussion with Dr. Arellano. rate controlled on Metoprolol Plan/VTE VTE Prophylaxis Ordered?: Yes (Lovenox) Plan Therapy: PT, OT VS, I&O, 24H, Fishbone Vital Signs/I&O Vital Signs Date Time Temp Pulse Resp B/P (MAP) Pulse Ox O2 Delivery O2 Flow Rate FiO2 11/03/18 09:00 93 Nasal Cannula 4.0 11/03/18 08:00 98.2 99 20 120/77 (91) I&O- Last 24 Hours up to 6 AM 11/03/18 06:00 Intake Total 485 ml Output Total 475 ml Balance 10 ml Laboratory Data 24H LABS Laboratory Tests 2 11/03/18 04:49: Immature Granulocyte % (Auto) , White Blood Count 3.0L, Red Blood Count 3.81L, Hemoglobin 10.3L, Hematocrit 33.7L, Mean Corpuscular Volume 88.5, Mean Corpuscular Hemoglobin 27.0, Mean Corpuscular Hemoglobin Concent 30.6L, Red Cell Distribution Width 19.0H, Platelet Count 81L, Lymphocytes # (Auto) , Nucleated Red Blood Cells % (auto) 0.0, Neutrophils 85H, Lymphocytes (Manual) 4L, Monocytes (Manual) 8, Eosinophils (Manual) 1, Metamyelocytes 1H, Myelocytes 1H, Platelet Estimate DECREASED, Hypochromasia 1+, Basophilic Stippling 1+, Anisocytosis 3+, Anion Gap 8, Glomerular Filtration Rate > 60.0, Blood Urea Nitrogen 18, Creatinine 0.55L, Sodium Level 140, Potassium Level 4.0, Chloride Level 92L, Carbon Dioxide Level 40H, Calcium Level 8.5L CBC/BMP Laboratory Tests 11/03/18 04:49 Red Blood Count 3.81 L, Mean Corpuscular Volume 88.5, Mean Corpuscular Hemoglobin 27.0, Mean Corpuscular Hemoglobin Concent 30.6 L, Red Cell Distribution Width 19.0 H, Lymphocytes # (Auto) , Calcium Level 8.5 L PILY DAVENPORT PA-C Nov 03, 2018 10:21
--- NOTE | 2018-11-03 13:19 | IPN ---
DATE OF SERVICE: 11/02/2018 SUBJECTIVE: The patient was seen and examined at the bedside today morning. He is afebrile, hemodynamically stable. He is tolerating the current dose of diuretics. His renal function is stable. His shortness of his of breath is improving. He is on 4-liter nasal cannula. Sodium level is stable at 135 today. OBJECTIVE: Vital signs: Temperature is 96.3 degrees Fahrenheit, blood pressure 110/76, pulse is 89, respiratory rate of 20, saturating 99% on 4 liters via nasal cannula. Intake and output: Urine output recorded is 1.4 liters yesterday, 225 mL so far today since overnight. Weight in the bed scale is 69.5 kg. PHYSICAL EXAMINATION: General: The patient is awake, alert, oriented times three, lying in bed, in no apparent distress. Head and neck examination: Extraocular muscles intact. Pupils equally round and reactive to light. Mucous membranes are moist. Neck is supple. He has a right internal jugular (vein) (IJ) Port-a-Cath. Cardiovascular: S1, S2, regular rate. No edema of the bilateral lower extremities. Respiratory: Mild inspiratory crackles bilaterally at the bases. Otherwise, bilateral equal air entry. Abdomen: Soft. Positive bowel sounds. Nontender. No organomegaly. Genitourinary: He has an indwelling Bowers catheter. Musculoskeletal: No clubbing or cyanosis. Central nervous system (EFFICIENCY CLERK): No focal deficit. Power is 5/5 in all extremities. LABORATORY REVIEW: Complete blood count (CBC) showed a WBC of 4.2, hemoglobin 10.6, platelets are 80. Basic metabolic profile (BMP) showed sodium 135, potassium 3.5, chloride 92, bicarbonate 35, BUN 18, creatinine is 0.5, calcium is 8.3. CURRENT INPATIENT MEDICATIONS: The patient's medications were all reviewed by me. He continues to be on torsemide 20 mg by mouth twice a day. I have started him on potassium chloride 20 mEq by mouth daily. No other change in the medications today as compared with yesterday. ASSESSMENT AND PLAN: 1. Hyponatremia. Sodium has improved to 135 now. Continue current dose of torsemide 20 mg by mouth twice a day. I have decreased his salt tablet to 1 gram by mouth twice a day now. 2. Hypokalemia. The patient has been started on potassium chloride 20 mEq by mouth every day. 3. Hypoxemia. The patient's breathing is getting better. Volume status is optimal. Oxygen requirement has come down to 4 liters via nasal cannula. DISPOSITION: The patient's renal function is stable. His sodium level has improved to 135. Nephrology service is going to sign off at this moment. Please call nephrology service for any help in the management of this patient during this hospitalization.
[2018-11-03] MEDS: METOPROLOL SUCC *XL* 12.5MG PER 1/2 TAB (TopROL *XL*) PO SCH (21:26)
[2018-11-04] VITALS (7 sets, daily range): BP systolic 105–140; BP diastolic 70–93; O2SAT 99–100
[2018-11-04] MEDS: IPRATROPIUM 0.5MG/ALBUTEROL 2.5MG INH SOL UD 3ML (DUONEB)(J7620) NEB SCH ×5 (00:29→19:30)
[2018-11-04 06:11] LABS: HEMATOCRIT 34.7 % (42.0-52.0); HEMOGLOBIN 10.7 g/dl (13.5-17.5); MEAN CORPUSCULAR HEMOGLOBIN 28.2 pg (27.0-33.0); MEAN CORPUSCULAR HGB CONC 30.8 g/dl (32.0-36.5); MEAN CORPUSCULAR VOLUME 91.3 fl (80.0-96.0); WHITE BLOOD COUNT 2.3 10^3/uL (4.0-10.0)
[2018-11-04 06:20] LABS: PLATELET COUNT, AUTOMATED 70 10^3/uL (150-450)
[2018-11-04] MEDS: SLF 3 ML SYR IV SCH ×3 (06:30→21:07)
[2018-11-04 06:32] LABS: BLOOD UREA NITROGEN 17 MG/DL (7-18); CALCIUM LEVEL 8.6 MG/DL (8.8-10.2); CARBON DIOXIDE LEVEL 41 MEQ/L (21-32); CHLORIDE LEVEL 88 MEQ/L (98-107); GLOMERULAR FILTRATION RATE > 60.0 (>49); GLUCOSE, FASTING 113 MG/DL (70-100); SODIUM LEVEL 136 MEQ/L (136-145)
[2018-11-04 07:06] LABS: ANISOCYTOSIS 1+; BASOPHILS 1 % (0-4); LYMPHOCYTES 2 % (16-52); METAMYELOCYTES 2 % (0-0); MONOCYTES 10 % (0-8); MYELOCYTES 1 % (0-0); NEUTROPHILS 81 % (35-75); PLATELET ESTIMATE DECREASED (NORMAL)
[2018-11-04 07:08] LABS: HYPOCHROMASIA 1+
[2018-11-04] MEDS: ENOXAPARIN 40 MG/0.4 ML SYRINGE (J1650) SC SCH ×2 (09:08→11:24)
[2018-11-04] MEDS: OMEPRAZOLE 20 MG CAP PO SCH (09:09)
[2018-11-04] MEDS: TORSEMIDE 20 MG TAB PO SCH ×2 (09:10→17:06)
[2018-11-04] MEDS: POTASSIUM CHLORIDE 10 MEQ SR TABLET PO SCH (09:10)
[2018-11-04] MEDS: VORICONAZOLE 200MG TABLET (VFEND) PO SCH ×2 (09:10→21:06)
[2018-11-04] MEDS: SODIUM CHLORIDE 1 GM TAB PO SCH ×2 (09:10→21:06)
[2018-11-04] MEDS: ATOVAQUONE SUSP 750MG/5ML 210 ML BTL PO SCH ×2 (09:11→21:06)
[2018-11-04] MEDS: predniSONE 20 MG TAB PO SCH (09:11)
[2018-11-04] MEDS ORDERED: POTASSIUM CHLORIDE 10 MEQ SR TABLET PO ONE (11:30)
[2018-11-04] MEDS: METOPROLOL SUCC *XL* 12.5MG PER 1/2 TAB (TopROL *XL*) PO SCH (21:07)
--- NOTE | 2018-11-05 00:54 | IPNPDOC ---
Subjective Date Seen The patient was seen on 11/04/18. Subjective Chief Complaint/HPI Nursing reports that patient still requires perhaps 6 L NC O2 when up and ambulatory, down to 3 L NC at rest. Patient walked around the bed and sat in chair for a while today. We discussed removing his Bowers catheter, and he was somewhat concerned about this. Constitutional: Denies: Chills, Fever Pulmonary: Reports: Dyspnea; Denies: Cough Cardiovascular: Denies: Chest Pain, Palpitations Gastrointestinal: Denies: Nausea, Vomiting, Diarrhea, Constipation Genitourinary: Reports: Other Symptoms (catheter in place) Neurological: Reports: Weakness Objective Physical Examination General Exam: Positive: Alert, Cooperative, No Acute Distress Neck Exam: Negative: thyromegaly Chest Exam: Positive: Rales (rales noted, no wheezes), Diminished (diffusely diminished with reduced air movement.), Other; Negative: Clear to auscultation, Rhonchi, Wheezing Heart Exam: Positive: Rate Normal, Regular Rhythm, Normal S1, Normal S2; Negative: Tachycardic, Irregular Rhythm Telemetry: Positive: Atrial fibrillation Abdomen Exam: Positive: Normal bowel sounds, Soft; Negative: Tenderness Male Exam: Negative: Edema Extremity Exam: Negative: Edema Psych Exam: Positive: Mood NL Assessment /Plan Problems (1) Acute respiratory failure with hypoxemia Status: Acute Response to Treatment: Stable, Improving Discussed With: Nurse, Patient Problem Specific Plan: Monitor Clinically, Repeat Labs Problem Text: 11/04 -- slowly decreasing oxygenation needs. Atovaquone day # 02/20 11/03 transfer to the floor today. Await input from ARU, if candidate medically ready for transfer, if not, plan for transition to [facility] until STR bed available. 11/02/18: Patient continues to work with PT. ARU rehab consult placed today. He remains on O2 3L n/c at rest. He continues to desat with ambulation. Sputum cx pending. He remains on Atovaquone D#12/21 and on Vorconazole D#10 11/01 - Very slow progress. PT will continue to work on teaching purs lipped monica thing and raise oxygen to 6 liters while ambulating for now Remains on Atovaquone D#11/20 for presumptive PCP, On Vorconazole for possible fungal pneumonia (Sputum fungal cultures pending - if negative, would de/c Vorcon especially considering negative serologies and galactomannan Still on Prednisone 10/31/18: mild improvement. continues to require oxygen and desaturates with mild exertion. Continue with diuresis and monitor symptoms. 10/30: Doing better clinically. Still on 4L via nasal cannula, but if he moves he doesn't drop quite as fast or for quite as long. 10/28: subjectively improving. on voriconazole and atovaquone. 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 CXR looks a bit better. 10/25: voriconazole added yesterday to Multaq stopped; sxt/tmp dose optimized to 20mg/kg 10/24: ct done today. report says similar but slightly better to previous ct. await Dr. Cruz opinion about the study. 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 Plan CT tomorrow and possible bronch. He has told me that he is not enthusiastic about potentially being on a ventilator, but accepts that risk. 10/21 -- patient remains on Bactrim. If not improved by Wednesday, which is looking likely, plan bronchoscopy. Oxygen demands remain high, and patient is desatting with minimal exertion. Patient voices desire for full code status. D7 empiric Bactrim for PJP, s/p Zosyn x 6 days - stoppped by ID 10/20 Pulmonary consult pending due to severe hypoxemia with minimal exertion Unable to give sputum for Culture (No productive sputum) 10/19/18: s/p ID consult. Duonebs added q 6 hrs. DC solu-medrol. Start Prednisone 60 mg po bid. 10/18/18: repeat bl cxs and fungal smear remain pending. Patient continues with dyspnea. CT Chest competed and demonstrates improvement. see report below. 10/17/18 fungal smear/culture and DFA staining obtained (ordered 10/15!) 10/17 CT chest: The diffuse bilateral interstitial and alveolar infiltrates identified on 09/23/2018 have decreased. The bilateral pleural effusions have decreased. The extensive mediastinal lymph node enlargement identified on 05/19/2089, has resolved. 10/17/18: patient states he feels significantly better. Continues to require 5 LNC. HOLD on diuresing due to soft BP. HR remains stable. Bl cx and sputum cx pending. 10/16: LDH elevated above baseline elevation from lymphoma which can be seen c PJP. Sulfa/TMP started yesterday. Hypoxic with minimal exertion. Diuresis has diminished since change to po lasix. will repeat BNP, may need IV lasix again. 09/28/18 Fungitell >500-Ddx: PJP, Lise spp, Aspergillus less likely given 09/24 A flavus/fumigatus, niger Ab -/galacto Ag - (2) Gram-positive cocci in clusters Status: Resolved Response to Treatment: Stable Problem Text: 11/02/18: BC negative after 5 days 10/19/18: repeat bl. cx negative. 10/17 BCX2 P 10/13 BCX1/1 + for micrococcus. most likley contaminant. will repeat BCX (3) Acute on chronic diastolic (congestive) heart failure Status: Acute Response to Treatment: Stable, Improving Problem Specific Plan: Monitor Clinically Problem Text: 11/02/18: Appears well compensated. Remains on Torsemide 20 mg po bid 11/01 - Now on Torsemide 20 BID per nephrology 10/30: He is being carefully diuresed by the Nephro team. Will defer to them for further management. hdfffffffffffffffffffffffffffffffffffffff ffffffffffffffffffffffffffffffffffffffffffffffffffffffffffffffffffffffffffffffffffffffffffffffffffff ffffffffffffffffffffffffffffffffffffffffffffffffffffffffffffffffffffffffffffffffffffffffffffffffffff ffffffffffffffffffffffffffffffffffffffffffffffffffffffffffffffffffffffffffffffffffffffffffffffffffff ffffffffffffffffffffffffffffffffffffffffffffffffffffffffffffffffffffffffffffffffffffffffffffffffffff ffffffffffffffffffffffffffffffffffffffffffffffffffffffffffffffffffffffffffffffffffffffffffffffffffff ffffffffffffffffffffffffffffffffffffffffffffffffffffffffffffffffffffffffffffffffffffffffffffffffffff ffffffffffffffffffffffffffffffffffffffffffffffffffffffffffffffffffffffffffffffffffffffffffffffffffff ffffffffffffffffffffffffffffffffffffffffffffffffffffffffffffffffffffffffffffffffffffffffffffffffffff ffffffffffffffffffffffffffffffffffffffffffffffffffffffffffffffffffffffffffffffffffffffffffffffffffff ffffffffffffffffffffffffffffffffffffffffffffffffffffffffffffffffffffffffffffffffffffffffffffffffffff ffffffffffffffffffffffffffffffffffffffffffffffffffffffffffffffffffffffffffffffffffffffffffffffffffff ffffffffffffffffffffffffffffffffffffffffffffffffffffffffffffffffffffffffffffffffffffffffffffffffffff ffffffffffffffffffffffffffffffffffffffffffffffffffffffffffffffffffffffffffffffffffffffffffffffffffff ffffffffffffffffffffffffffffffffffffffffffffffffffffffffffffffffffffffffffffffffffffffffffffffffffff ffffffffffffffffffffffffffffffffffffffffffffffffffffffffffffffffffffffffffffffffffffffffffffffffffff ffffffffffffffffffffffffffffffffffffffffffffffffffffffffffffffffffffffffffffffffffffffffffffffffffff ffffffffffffffffffffffffffffffffffffffffffffffffffffffffffffffffffffffffffffffffffffffffffffffffffff ffffffffffffffffffffffffffffffffffffffffffffffffffffffffffffffffffffffffffffffffffffffffffffffffffff ffffffffffffffffffffffffffffffffffffffffffffffffffffffffffffffffffffffffffffffffffffffffffffffffffff ffffffffffffffffffffffffffffffffffffffffffffffffffffffffffffffffffffffffffffffffffffffffffffffffffff ffffffffffffffffffffffffffffffffffffffffffffffffffffffffffffffffffffffffffffffffffffffffffffffffffff ffffffffffffffffffffffffffffffffffffffffffffffffffffffffffffffffffffffffffffffffffffffffffffffffffff ffffffffffffffffffffffffffffffffffffffffffffffffffffffffffffffffffffffffffffffffffffffffffffffffffff ffffffffffffffffffffffffffffffffffffffffffffffffffffffffffffffffffffffffffffffffffffffffffffffffffff ffffffffffffffffffffffffffffffffffffffffffffffffffffffffffffffffffffffffffffffffffffffffffffffffffff ffffffffffffffffffffffffffffffffffffffffffffffffffffffffffffffffffffffffffffffffffffffffffffffffffff ffffffffffffffffffffffffffffffffffffffffffffffffffffffffffffffffffffffffffffffffffffffffffffffffffff ffffffffffffffffffffffffffffffffffffffffffffffffffffffffffffffffffffffffffffffffffffffffffffffffffff ffffffffffffffffffffffffffffffffffffffffffffffffffffffffffffffffffffffffffffffffffffffffffffffffffff ffffffffffffffffffffffffffffffffffffffffffffffffffffffffffffffffffffffffffffffffffffffffffffffffffff ffffffffffffffffffffffffffffffffffffffffffffffffffffffffffffffffffffffffffffffffffffffffffffffffffff ffffffffffffffffffffffffffffffffffffffffffffffffffffffffffffffffffffffffffffffffffffffffffffffffffff ffffffffffffffffffffffffffffffffffffffffffffffffffffffffffffffffffffffffffffffffffffffffffffffffffff ffffffffffffffffffffffffffffffffffffffffffffffffffffffffffffffffffffffffffffffffffffffffffffffffffff ffffffffffffffffffffffffffffffffffffffffffffffffffffffffffffffffffffffffffffffffffffffffffffffffffff ffffffffffffffffffffffffffffffffffffffffffffffffffffffffffffffffffffffffffffffffffffffffffffffffffff ffffffffffffffffffffffffffffffffffffffffffffffffffffffffffffffffffffffffffffffffffffffffffffffffffff ffffffffffffffffffffffffffffffffffffffffffffffffffffffffffffffffffffffffffffffffffffffffffffffffffff ffffffffffffffffffffffffffffffffffffffffffffffffffffffffffffffffffffffffffffffffffffffffffffffffffff ffffffffffffffffffffffffffffffffffffffffffffffffffffffffffffffffffffffffffffffffffffffffffffffffffff ffffffffffffffffffffffffffffffffffffffffffffffffffffffffffffffffffffffffffffffffffffffffffffffffffff ffffffffffffffffffffffffffffffffffffffffffffffffffffffffffffffffffffffffffffffffffffffffffffffffffff ffffffffffffffffffffffffffffffffffffffffffffffffffffffffffffffffffffffffffffffffffffffffffffffffffff ffffffffffffffffffffffffffffffffffffffffffffffffffffffffffffffffffffffffffffffffffffffffffffffffffff ffffffffffffffffffffffffffffffffffffffffffffffffffffffffffffffffffffffffffffffffffffffffffffffffffff ffffffffffffffffffffffffffffffffffffffffffffffffffffffffffffffffffffffffffffffffffffffffffffffffffff ffffffffffffffffffffffffffffffffffffffffffffffffffffffffffffffffffffffffffffffffffffffffffffffffffff ffffffffffffffffffffffffffffffffffffffffffffffffffffffffffffffffffffffffffffffffffffffffffffffffffff ffffffffffffffffffffffffffffffffffffffffffffffffffffffffffffffffffffffffffffffffffffffffffffffffffff ffffffffffffffffffffffffffffffffffffffffffffffffffffffffffffffffffffffffffffffffffffffffffffffffffff ffffffffffffffffffffffffffffffffffffffffffffffffffffffffffffffffffffffffffffffffffffffffffffffffffff ffffffffffffffffffffffffffffffffffffffffffffffffffffffffffffffffffffffffffffffffffffffffffffffffffff ffffffffffffffffffffffffffffffffffffffffffffffffffffffffffffffffffffffffffffffffffffffffffffffffffff ffffffffffffffffffffffffffffffffffffffffffffffffffffffffffffffffffffffffffffffffffffffffffffffffffff ffffffffffffffffffffffffffffffffffffffffffffffffffffffffffffffffffffffffffffffffffffffffffffffffffff ffffffffffffffffffffffffffffffffffffffffffffffffffffffffffffffffffffffffffffffffffffffffffffffffffff ffffffffffffffffffffffffffffffffffffffffffffffffffffffffffffffffffffffffffffffffffffffffffffffffffff ffffffffffffffffffffffffffffffffffffffffffffffffffffffffffffffffffffffffffffffffffffffffffffffffffff ffffffffffffffffffffffffffffffffffffffffffffffffffffffffffffffffffffffffffffffffffffffffffffffffffff ffffffffffffffffffffffffffffffffffffffffffffffffffffffffffffffffffffffffffffffffffffffffffffffffffff ffffffffffffffffffffffffffffffffffffffffffffffffffffffffffffffffffffffffffffffffffffffffffffffffffff ffffffffffffffffffffffffffffffffffffffffffffffffffffffffffffffffffffffffffffffffffffffffffffffffffff ffffffffffffffffffffffffffffffffffffffffffffffffffffffffffffffffffffffffffffffffffffffffffffffffffff ffffffffffffffffffffffffffffffffffffffffffffffffffffffffffffffffffffffffffffffffffffffffffffffffffff ffffffffffffffffffffffffffffffffffffffffffffffffffffffffffffffffffffffffffffffffffffffffffffffffffff ffffffffffffffffffffffffffffffffffffffffffffffffffffffffffffffffffffffffffffffffffffffffffffffffffff ffffffffffffffffffffffffffffffffffffffffffffffffffffffffffffffffffffffffffffffffffffffffffffffffffff ffffffffffffffffffffffffffffffffffffffffffffffffffffffffffffffffffffffffffffffffffffffffffffffffffff ffffffffffffffffffffffffffffffffffffffffffffffffffffffffffffffffffffffffffffffffffffffffffffffffffff ffffffffffffffffffffffffffffffffffffffffffffffffffffffffffffffffffffffffffffffffffffffffffffffffffff ffffffffffffffffffffffffffffffffffffffffffffffffffffffffffffffffffffffffffffffffffffffffffffffffffff ffffffffffffffffffffffffffffffffffffffffffffffffffffffffffffffffffffffffffffffffffffffffffffffffffff ffffffffffffffffffffffffffffffffffffffffffffffffffffffffffffffffffffffffffffffffffffffffffffffffffff ffffffffffffffffffffffffffffffffffffffffffffffffffffffffffffffffffffffffffffffffffffffffffffffffffff fffffffffffffffffffffffffffffffffff 10/28: no lasix for now. 10/27: due to rapidly worsening hyponatremia, furosemide has been held. 10/26: lasix increased to 60 bid overnight, Dr. Cruz ordered 100mg IV lasix dose this am. 10/23 -- albumin and pro-BNP ordered for tomorrow; renal function has remained stable, though there is some concern that his malaise today may indicate overdiuresis. 10/22 -- I&Os show patient consistently net negative. 10/21 - Getting Lasix 40 BID with fair diuresis per I + Os BP stable 10/17/18: HOLD on diuresing due to soft BP. HR remains stable. 10/16: CXR looks a little wetter, BNP pending; may need increase laxix CXR in am, continue lasix for now. Last ECHO 09/18 with nl EF< Gr 1 diastolic dysfunction. Cont with Lasix IV, change diet to low sodium. Monitor I & Os. (4) Hyponatremia Status: Resolved Response to Treatment: Stable, Improving Problem Text: 11/03 Na 140, monitor. 11/02/18: Slow improvement, Na+ 135 11/01 - Treated as SIADH - improving with diuretics - now on Torsemide as above 10/31/18: continues to improve 10/30: His sodium has improved well with Nephro's help. Appreciate the help. 10/28: hypertonic saline infusion stopped for now but sodium slightly lower than it had been. being managed by Dr Pedro. 10/27: after IV lasix yesterday, repeat sodium showed quick drop to 120 accompanied by INS[employer] LE[employer]ER symptoms of diplopia and confusion and hallucinations. Dr. Miri Pedro consulted and patient moved to ICU to administer 3% NS, being given through port. INSIGHT LEADER symptoms have resolved although weakness remains. and 10/26: sodium down to 124 today. will restrict hypotonic fluids, K now normal. possible side effect of SXT/TMP. 10/25: slightly worse sodium and persistent hyperkalemia. this combination can be side effect of SXT/TMP. Has sent communication to Dr. 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 his sxt/tmp is in water, so asked pharmacy to reduce volume that his antibiotic is in. not stable in NS, only D5W. (5) Large B-cell lymphoma Status: Acute Problem Specific Plan: Monitor Clinically Problem Text: 10/16: may need to be rescheduled depending. Follows with [facility] as outpt, scheduled for final chemo 10/21. (6) Pancytopenia due to chemotherapy Status: Resolved Problem Text: 11/04 -- platelet count dipped, no active bleeding, continue to monitor s/p Nulasta 10/14 (7) Paroxysmal atrial fibrillation Status: Chronic Response to Treatment: Stable Problem Text: 10/28: rate control remains adequate with beta braden. 10/25: Multaq stopped due to interaction with voriconazole after discussion with Dr. Arellano. rate controlled on Metoprolol Plan/VTE VTE Prophylaxis Ordered?: Yes (Lovenox) Plan Therapy: PT, OT VS, I&O, 24H, Fishbone Vital Signs/I&O Vital Signs Date Time Temp Pulse Resp B/P (MAP) Pulse Ox O2 Delivery O2 Flow Rate FiO2 11/04/18 22:00 96.9 118 18 117/75 (89) 98 4.0 11/04/18 18:49 Nasal Cannula I&O- Last 24 Hours up to 6 AM 11/05/18 06:00 Intake Total 1335 ml Output Total 500 ml Balance 835 ml Laboratory Data 24H LABS Laboratory Tests 2 11/04/18 05:41: Immature Granulocyte % (Auto) , White Blood Count 2.3L, Red Blood Count 3.80L, Hemoglobin 10.7L, Hematocrit 34.7L, Mean Corpuscular Volume 91.3, Mean Corpuscular Hemoglobin 28.2, Mean Corpuscular Hemoglobin Concent 30.8L, Red Cell Distribution Width 19.2H, Platelet Count 70L, Lymphocytes # (Auto) , Nucleated Red Blood Cells % (auto) 0.0, Neutrophils 81H, Band Neutrophils 3, Lymphocytes (Manual) 2L, Monocytes (Manual) 10H, Basophils (Manual) 1, Metamyelocytes 2H, Myelocytes 1H, Platelet Estimate DECREASED, Immature Platelet Fraction 3.6, Hypochromasia 1+, Basophilic Stippling 1+, Anisocytosis 1+, Anion Gap 7L, Glomerular Filtration Rate > 60.0, Blood Urea Nitrogen 17, Creatinine 0.60L, Sodium Level 136, Potassium Level 3.0#L, Chloride Level 88L, Carbon Dioxide Level 41H, Calcium Level 8.6L CBC/BMP Laboratory Tests 11/04/18 05:41 Red Blood Count 3.80 L, Mean Corpuscular Volume 91.3, Mean Corpuscular Hemoglobin 28.2, Mean Corpuscular Hemoglobin Concent 30.8 L, Red Cell Dis tribution Width 19.2 H, Lymphocytes # (Auto) , Calcium Level 8.6 L LAWRENCE CARDENAS DO Nov 05, 2018 00:54
[2018-11-05] MEDS: IPRATROPIUM 0.5MG/ALBUTEROL 2.5MG INH SOL UD 3ML (DUONEB)(J7620) NEB SCH ×4 (01:37→19:43)
[2018-11-05 01:41] VITALS: O2SAT 100
[2018-11-05 02:00] VITALS: BP 118/77
[2018-11-05] MEDS: SLF 3 ML SYR IV SCH ×3 (05:58→21:18)
[2018-11-05 06:00] VITALS: BP 126/85
[2018-11-05 06:12] LABS: HEMATOCRIT 34.6 % (42.0-52.0); HEMOGLOBIN 10.8 g/dl (13.5-17.5); MEAN CORPUSCULAR HEMOGLOBIN 28.5 pg (27.0-33.0); MEAN CORPUSCULAR HGB CONC 31.2 g/dl (32.0-36.5); MEAN CORPUSCULAR VOLUME 91.3 fl (80.0-96.0); RED BLOOD COUNT 3.79 10^6/uL (4.30-6.10); WHITE BLOOD COUNT 2.1 10^3/uL (4.0-10.0)
[2018-11-05 06:16] LABS: PLATELET COUNT, AUTOMATED 72 10^3/uL (150-450)
[2018-11-05 06:33] LABS: BLOOD UREA NITROGEN 19 MG/DL (7-18); CALCIUM LEVEL 8.8 MG/DL (8.8-10.2); CARBON DIOXIDE LEVEL 43 MEQ/L (21-32); CHLORIDE LEVEL 89 MEQ/L (98-107); CREATININE FOR GFR 0.55 MG/DL (0.70-1.30); GLOMERULAR FILTRATION RATE > 60.0 (>49); GLUCOSE, FASTING 125 MG/DL (70-100); POTASSIUM SERUM 3.3 MEQ/L (3.5-5.1); SODIUM LEVEL 137 MEQ/L (136-145)
[2018-11-05 07:32] LABS: LYMPHOCYTES 4 % (16-52); METAMYELOCYTES 2 % (0-0); MONOCYTES 8 % (0-8); MYELOCYTES 1 % (0-0); NEUTROPHILS 75 % (35-75); POIKILOCYTOSIS 2+; STOMATOCYTES 2+
[2018-11-05 07:33] LABS: ANISOCYTOSIS 2+; PLATELET ESTIMATE DECREASED (NORMAL)
[2018-11-05] MEDS: ENOXAPARIN 40 MG/0.4 ML SYRINGE (J1650) SC SCH (09:14)
[2018-11-05] MEDS: OMEPRAZOLE 20 MG CAP PO SCH (09:14)
[2018-11-05] MEDS: ATOVAQUONE SUSP 750MG/5ML 210 ML BTL PO SCH ×2 (09:14→21:17)
[2018-11-05] MEDS: TORSEMIDE 20 MG TAB PO SCH ×2 (09:14→16:33)
[2018-11-05] MEDS: VORICONAZOLE 200MG TABLET (VFEND) PO SCH ×2 (09:15→22:20)
[2018-11-05] MEDS: POTASSIUM CHLORIDE 10 MEQ SR TABLET PO SCH (09:15)
[2018-11-05] MEDS: predniSONE 20 MG TAB PO SCH (09:15)
[2018-11-05] MEDS: SODIUM CHLORIDE 1 GM TAB PO SCH ×2 (09:15→21:17)
[2018-11-05 10:00] VITALS: BP 94/58
[2018-11-05] MEDS ORDERED: POTASSIUM CHLORIDE 10 MEQ SR TABLET PO ONE (11:00)
[2018-11-05 14:00] VITALS: BP 102/58
--- NOTE | 2018-11-05 21:37 | IPNPDOC ---
Subjective Date Seen The patient was seen on 11/05/18. Subjective Chief Complaint/HPI Patient states that he is feeling pretty well, breathing unchanged. Labwork shows CBC with worsening white and platelet counts. Constitutional: Denies: Chills, Fever Pulmonary: Reports: Dyspnea, Cough Cardiovascular: Denies: Chest Pain Gastrointestinal: Denies: Nausea, Vomiting, Diarrhea, Constipation Objective Physical Examination General Exam: Positive: Alert, Cooperative, No Acute Distress Neck Exam: Negative: thyromegaly Chest Exam: Positive: Rales (rales noted, no wheezes), Diminished (diffusely diminished with reduced air movement.), Other; Negative: Clear to auscultation, Rhonchi, Wheezing Heart Exam: Positive: Rate Normal, Regular Rhythm, Normal S1, Normal S2; Negative: Tachycardic, Irregular Rhythm Telemetry: Positive: Atrial fibrillation Abdomen Exam: Positive: Normal bowel sounds, Soft; Negative: Tenderness Male Exam: Negative: Edema Extremity Exam: Negative: Edema Psych Exam: Positive: Mood NL Assessment /Plan Problems (1) Acute respiratory failure with hypoxemia Status: Acute Response to Treatment: Stable, Improving Discussed With: Nurse, Patient Problem Specific Plan: Monitor Clinically, Repeat Labs Problem Text: 11/05 -- oxygen needs are consistent 11/04 -- slowly decreasing oxygenation needs. Atovaquone day # 02/20 11/03 transfer to the floor today. Await input from ARU, if candidate medically ready for transfer, if not, plan for transition to [facility] until STR bed available. 11/02/18: Patient continues to work with PT. ARU rehab consult placed today. He remains on O2 3L n/c at rest. He continues to desat with ambulation. Sputum cx pending. He remains on Atovaquone D#12/21 and on Vorconazole D#10 11/01 - Very slow progress. PT will continue to work on teaching purs lipped breathing and raise oxygen to 6 liters while ambulating for now Remains on Atovaquone D#11/20 for presumptive PCP, On Vorconazole for possible fungal pneumonia (Sputum fungal cultures pending - if negative, would de/c Vorcon especially considering negative serologies and galactomannan Still on Prednisone 10/31/18: mild improvement. continues to require oxygen and desaturates with mild exertion. Continue with diuresis and monitor symptoms. 10/30: Doing better clinically. Still on 4L via nasal cannula, but if he moves he doesn't drop quite as fast or for quite as long. 10/28: subjectively improving. on voriconazole and atovaquone. 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 CXR looks a bit better. 10/25: voriconazole added yesterday to Multaq stopped; sxt/tmp dose optimized to 20mg/kg 10/24: ct done today. report says similar but slightly better to previous ct. await Dr. Cruz opinion about the study. 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 Plan CT tomorrow and possible bronch. He has told me that he is not enthusiastic about potentially being on a ventilator, but accepts that risk. 10/21 -- patient remains on Bactrim. If not improved by Wednesday, which is looking likely, plan bronchoscopy. Oxygen demands remain high, and patient is desatting with minimal exertion. Patient voices desire for full code status. D7 empiric Bactrim for PJP, s/p Zosyn x 6 days - stoppped by ID 10/20 Pulmonary consult pending due to severe hypoxemia with minimal exertion Unable to give sputum for Culture (No productive sputum) 10/19/18: s/p ID consult. Duonebs added q 6 hrs. DC solu-medrol. Start Prednisone 60 mg po bid. 10/18/18: repeat bl cxs and fungal smear remain pending. Patient continues with dyspnea. CT Chest competed and demonstrates improvement. see report below. 10/17/18 fungal smear/culture and DFA staining obtained (ordered 10/15!) 10/17 CT chest: The diffuse bilateral interstitial and alveolar infiltrates identified on 09/23/2018 have decreased. The bilateral pleural effusions have decreased. The extensive mediastinal lymph node enlargement identified on 05/19/2089, has resolved. 10/17/18: patient states he feels significantly better. Continues to require 5 LNC. HOLD on diuresing due to soft BP. HR remains stable. Bl cx and sputum cx pending. 10/16: LDH elevated above baseline elevation from lymphoma which can be seen c PJP. Sulfa/TMP started yesterday. Hypoxic with minimal exertion. Diuresis has diminished since change to po lasix. will repeat BNP, may need IV lasix again. 09/28/18 Fungitell >500-Ddx: PJP, Lise spp, Aspergillus less likely given 09/24 A flavus/fumigatus, niger Ab -/galacto Ag - (2) Gram-positive cocci in clusters Status: Resolved Response to Treatment: Stable Problem Text: 11/02/18: BC negative after 5 days 10/19/18: repeat bl. cx negative. 10/17 BCX2 P 10/13 BCX1/1 + for micrococcus. most likley contaminant. will repeat BCX (3) Acute on chronic diastolic (congestive) heart failure Status: Acute Response to Treatment: Stable, Improving Problem Specific Plan: Monitor Clinically Problem Text: 11/02/18: Appears well compensated. Remains on Torsemide 20 mg po bid 11/01 - Now on Torsemide 20 BID per nephrology 10/30: He is being carefully diuresed by the Nephro team. Will defer to them for further management. hdfffffffffffffffffffffffffffffffffffffffffffffffffffffffffffffffffffffffffffffffffffffffffffffff ffffffffffffffffffffffffffffffffffffffffffffffffffffffffffffffffffffffffffffffffffffffffffffffffffff ffffffffffffffffffffffffffffffffffffffffffffffffffffffffffffffffffffffffffffffffffffffffffffffffffff ffffffffffffffffffffffffffffffffffffffffffffffffffffffffffffffffffffffffffffffffffffffffffffffffffff ffffffffffffffffffffffffffffffffffffffffffffffffffffffffffffffffffffffffffffffffffffffffffffffffffff ffffffffffffffffffffffffffffffffffffffffffffffffffffffffffffffffffffffffffffffffffffffffffffffffffff ffffffffffffffffffffffffffffffffffffffffffffffffffffffffffffffffffffffffffffffffffffffffffffffffffff ffffffffffffffffffffffffffffffffffffffffffffffffffffffffffffffffffffffffffffffffffffffffffffffffffff ffffffffffffffffffffffffffffffffffffffffffffffffffffffffffffffffffffffffffffffffffffffffffffffffffff ffffffffffffffffffffffffffffffffffffffffffffffffffffffffffffffffffffffffffffffffffffffffffffffffffff ffffffffffffffffffffffffffffffffffffffffffffffffffffffffffffffffffffffffffffffffffffffffffffffffffff ffffffffffffffffffffffffffffffffffffffffffffffffffffffffffffffffffffffffffffffffffffffffffffffffffff ffffffffffffffffffffffffffffffffffffffffffffffffffffffffffffffffffffffffffffffffffffffffffffffffffff ffffffffffffffffffffffffffffffffffffffffffffffffffffffffffffffffffffffffffffffffffffffffffffffffffff ffffffffffffffffffffffffffffffffffffffffffffffffffffffffffffffffffffffffffffffffffffffffffffffffffff ffffffffffffffffffffffffffffffffffffffffffffffffffffffffffffffffffffffffffffffffffffffffffffffffffff ffffffffffffffffffffffffffffffffffffffffffffffffffffffffffffffffffffffffffffffffffffffffffffffffffff ffffffffffffffffffffffffffffffffffffffffffffffffffffffffffffffffffffffffffffffffffffffffffffffffffff ffffffffffffffffffffffffffffffffffffffffffffffffffffffffffffffffffffffffffffffffffffffffffffffffffff ffffffffffffffffffffffffffffffffffffffffffffffffffffffffffffffffffffffffffffffffffffffffffffffffffff ffffffffffffffffffffffffffffffffffffffffffffffffffffffffffffffffffffffffffffffffffffffffffffffffffff ffffffffffffffffffffffffffffffffffffffffffffffffffffffffffffffffffffffffffffffffffffffffffffffffffff ffffffffffffffffffffffffffffffffffffffffffffffffffffffffffffffffffffffffffffffffffffffffffffffffffff ffffffffffffffffffffffffffffffffffffffffffffffffffffffffffffffffffffffffffffffffffffffffffffffffffff ffffffffffffffffffffffffffffffffffffffffffffffffffffffffffffffffffffffffffffffffffffffffffffffffffff ffffffffffffffffffffffffffffffffffffffffffffffffffffffffffffffffffffffffffffffffffffffffffffffffffff ffffffffffffffffffffffffffffffffffffffffffffffffffffffffffffffffffffffffffffffffffffffffffffffffffff ffffffffffffffffffffffffffffffffffffffffffffffffffffffffffffffffffffffffffffffffffffffffffffffffffff ffffffffffffffffffffffffffffffffffffffffffffffffffffffffffffffffffffffffffffffffffffffffffffffffffff ffffffffffffffffffffffffffffffffffffffffffffffffffffffffffffffffffffffffffffffffffffffffffffffffffff ffffffffffffffffffffffffffffffffffffffffffffffffffffffffffffffffffffffffffffffffffffffffffffffffffff ffffffffffffffffffffffffffffffffffffffffffffffffffffffffffffffffffffffffffffffffffffffffffffffffffff ffffffffffffffffffffffffffffffffffffffffffffffffffffffffffffffffffffffffffffffffffffffffffffffffffff ffffffffffffffffffffffffffffffffffffffffffffffffffffffffffffffffffffffffffffffffffffffffffffffffffff ffffffffffffffffffffffffffffffffffffffffffffffffffffffffffffffffffffffffffffffffffffffffffffffffffff ffffffffffffffffffffffffffffffffffffffffffffffffffffffffffffffffffffffffffffffffffffffffffffffffffff ffffffffffffffffffffffffffffffffffffffffffffffffffffffffffffffffffffffffffffffffffffffffffffffffffff ffffffffffffffffffffffffffffffffffffffffffffffffffffffffffffffffffffffffffffffffffffffffffffffffffff ffffffffffffffffffffffffffffffffffffffffffffffffffffffffffffffffffffffffffffffffffffffffffffffffffff ffffffffffffffffffffffffffffffffffffffffffffffffffffffffffffffffffffffffffffffffffffffffffffffffffff ffffffffffffffffffffffffffffffffffffffffffffffffffffffffffffffffffffffffffffffffffffffffffffffffffff ffffffffffffffffffffffffffffffffffffffffffffffffffffffffffffffffffffffffffffffffffffffffffffffffffff ffffffffffffffffffffffffffffffffffffffffffffffffffffffffffffffffffffffffffffffffffffffffffffffffffff ffffffffffffffffffffffffffffffffffffffffffffffffffffffffffffffffffffffffffffffffffffffffffffffffffff ffffffffffffffffffffffffffffffffffffffffffffffffffffffffffffffffffffffffffffffffffffffffffffffffffff ffffffffffffffffffffffffffffffffffffffffffffffffffffffffffffffffffffffffffffffffffffffffffffffffffff ffffffffffffffffffffffffffffffffffffffffffffffffffffffffffffffffffffffffffffffffffffffffffffffffffff ffffffffffffffffffffffffffffffffffffffffffffffffffffffffffffffffffffffffffffffffffffffffffffffffffff ffffffffffffffffffffffffffffffffffffffffffffffffffffffffffffffffffffffffffffffffffffffffffffffffffff ffffffffffffffffffffffffffffffffffffffffffffffffffffffffffffffffffffffffffffffffffffffffffffffffffff ffffffffffffffffffffffffffffffffffffffffffffffffffffffffffffffffffffffffffffffffffffffffffffffffffff ffffffffffffffffffffffffffffffffffffffffffffffffffffffffffffffffffffffffffffffffffffffffffffffffffff ffffffffffffffffffffffffffffffffffffffffffffffffffffffffffffffffffffffffffffffffffffffffffffffffffff ffffffffffffffffffffffffffffffffffffffffffffffffffffffffffffffffffffffffffffffffffffffffffffffffffff ffffffffffffffffffffffffffffffffffffffffffffffffffffffffffffffffffffffffffffffffffffffffffffffffffff ffffffffffffffffffffffffffffffffffffffffffffffffffffffffffffffffffffffffffffffffffffffffffffffffffff ffffffffffffffffffffffffffffffffffffffffffffffffffffffffffffffffffffffffffffffffffffffffffffffffffff ffffffffffffffffffffffffffffffffffffffffffffffffffffffffffffffffffffffffffffffffffffffffffffffffffff ffffffffffffffffffffffffffffffffffffffffffffffffffffffffffffffffffffffffffffffffffffffffffffffffffff ffffffffffffffffffffffffffffffffffffffffffffffffffffffffffffffffffffffffffffffffffffffffffffffffffff ffffffffffffffffffffffffffffffffffffffffffffffffffffffffffffffffffffffffffffffffffffffffffffffffffff ffffffffffffffffffffffffffffffffffffffffffffffffffffffffffffffffffffffffffffffffffffffffffffffffffff ffffffffffffffffffffffffffffffffffffffffffffffffffffffffffffffffffffffffffffffffffffffffffffffffffff ffffffffffffffffffffffffffffffffffffffffffffffffffffffffffffffffffffffffffffffffffffffffffffffffffff ffffffffffffffffffffffffffffffffffffffffffffffffffffffffffffffffffffffffffffffffffffffffffffffffffff ffffffffffffffffffffffffffffffffffffffffffffffffffffffffffffffffffffffffffffffffffffffffffffffffffff ffffffffffffffffffffffffffffffffffffffffffffffffffffffffffffffffffffffffffffffffffffffffffffffffffff ffffffffffffffffffffffffffffffffffffffffffffffffffffffffffffffffffffffffffffffffffffffffffffffffffff ffffffffffffffffffffffffffffffffffffffffffffffffffffffffffffffffffffffffffffffffffffffffffffffffffff ffffffffffffffffffffffffffffffffffffffffffffffffffffffffffffffffffffffffffffffffffffffffffffffffffff ffffffffffffffffffffffffffffffffffffffffffffffffffffffffffffffffffffffffffffffffffffffffffffffffffff ffffffffffffffffffffffffffffffffffffffffffffffffffffffffffffffffffffffffffffffffffffffffffffffffffff ffffffffffffffffffffffffffffffffffffffffffffffffffffffffffffffffffffffffffffffffffffffffffffffffffff ffffffffffffffffffffffffffffffffffffffffffffffffffffffffffffffffffffffffffffffffffffffffffffffffffff fffffffffffffffffffffffffffffffffffffffffffffffffffffffffffffffffffffffffffffff 10/28: no lasix for now. 10/27: due to rapidly worsening hyponatremia, furosemide has been held. 10/26: lasix increased to 60 bid overnight, Dr. Cruz ordered 100mg IV lasix dose this am. 10/23 -- albumin and pro-BNP ordered for tomorrow; renal function has remained stable, though there is some concern that his malaise today may indicate overdiuresis. 10/22 -- I&Os show patient consistently net negative. 10/21 - Getting Lasix 40 BID with fair diuresis per I + Os BP stable 10/17/18: HOLD on diuresing due to soft BP. HR remains stable. 10/16: CXR looks a little wetter, BNP pending; may need increase laxix CXR in am, continue lasix for now. Last ECHO 09/18 with nl EF< Gr 1 diastolic dysfunction. Cont with Lasix IV, change diet to low sodium. Monitor I & Os. (4) Hyponatremia Status: Resolved Response to Treatment: Stable, Improving Problem Text: 11/03 Na 140, monitor. 11/02/18: Slow improvement, Na+ 135 11/01 - Treated as SIADH - improving with diuretics - now on Torsemide as above 10/31/18: continues to improve 10/30: His sodium has improved well with Nephro's help. Appreciate the help. 10/28: hypertonic saline infusion stopped for now but sodium slightly lower than it had been. being managed by Dr Pedro. 10/27: after IV lasix yesterday, repeat sodium showed quick drop to 120 accompanied by BULLDOZER/LOADER/COMPACTOR/SCRAPER symptoms of diplopia and confusion and hallucinations. Dr. Miri Pedro consulted and patient moved to ICU to administer 3% NS, being given through port. BULLDOZER/LOADER/COMPACTOR/SCRAPER symptoms have resolved although weakness remains. and 10/26: sodium down to 124 today. will restrict hypotonic fluids, K now normal. possible side effect of SXT/TMP. 10/25: slightly worse sodium and persistent hyperkalemia. this combination can be side effect of SXT/TMP. Has sent communication to Dr. 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 his sxt/tmp is in water, so asked pharmacy to reduce volume that his antibiotic is in. not stable in NS, only D5W. (5) Large B-cell lymphoma Status: Acute Problem Specific Plan: Monitor Clinically Problem Text: 10/16: may need to be rescheduled depending. Follows with [facility] Onc as outpt, scheduled for final chemo 10/21. (6) Pancytopenia due to chemotherapy Status: Resolved Problem Text: 11/05 -- Patient is pancytopenic. I suspect that this may be secondary to atovaquone, will try to contact infectious disease. If no success, may contact heme/onc. 11/04 -- platelet count dipped, no active bleeding, continue to monitor s/p Nulasta 10/14 (7) Paroxysmal atrial fibrillation Status: Chronic Response to Treatment: Stable Problem Text: 10/28: rate control remains adequate with beta braden. 10/25: Multaq stopped due to interaction with voriconazole after discussion with Dr. Arellano. rate controlled on Metoprolol Plan/VTE VTE Prophylaxis Ordered?: Yes (Lovenox) Plan Therapy: PT, OT VS, I&O, 24H, Fishbone Vital Signs/I&O Vital Signs Date Time Temp Pulse Resp B/P (MAP) Pulse Ox O2 Delivery O2 Flow Rate FiO2 11/05/18 14:00 96.8 98 19 102/58 (73) 91 4.0 11/05/18 01:41 Nasal Cannula I&O- Last 24 Hours up to 6 AM 11/05/18 06:00 Intake Total 1690 ml Output Total 945 ml Balance 745 ml Laboratory Data 24H LABS Laboratory Tests 2 11/05/18 05:45: Immature Granulocyte % (Auto) , White Blood Count 2.1L, Red Blood Count 3.79L, Hemoglobin 10.8L, Hematocrit 34.6L, Mean Corpuscular Volume 91.3, Mean Corpuscular Hemoglobin 28.5, Mean Corpuscular Hemoglobin Concent 31.2L, Red Cell Distribution Width 19.3H, Platelet Count 72L, Lymphocytes # (Auto) , Nucleated Red Blood Cells % (auto) 0.0, Neutrophils 75, Band Neutrophils 10, Lymphocytes (Manual) 4L, Monocytes (Manual) 8, Metamyelocytes 2H, Myelocytes 1H, Platelet Estimate DECREASED, Immature Platelet Fraction 4.8, Poikilocytosis 2+, Anisocytosis 2+, Stomatocytes 2+, Anion Gap 5L, Glomerular Filtration Rate > 60.0, Blood Urea Nitrogen 19H, Creatinine 0.55L, Sodium Level 137, Potassium Level 3.3L, Chloride Level 89L, Carbon Dioxide Level 43H, Calcium Level 8.8 CBC/BMP Laboratory Tests 11/05/18 05:45 Red Blood Count 3.79 L, Mean Corpuscular Volume 91.3, Mean Corpuscular Hemoglobin 28.5, Mean Corpuscular Hemoglobin Concent 31.2 L, Red Cell Distribution Width 19.3 H, Lymphocytes # (Auto) , Calcium Level 8.8 LAWRENCE CARDENAS DO Nov 05, 2018 21:36
[2018-11-05 22:00] VITALS: BP 110/74
[2018-11-05] MEDS: METOPROLOL SUCC *XL* 12.5MG PER 1/2 TAB (TopROL *XL*) PO SCH (22:21)
[2018-11-06] VITALS (7 sets, daily range): BP systolic 113–125; BP diastolic 75–84; O2SAT 93
[2018-11-06] MEDS: IPRATROPIUM 0.5MG/ALBUTEROL 2.5MG INH SOL UD 3ML (DUONEB)(J7620) NEB SCH ×4 (00:55→19:47)
[2018-11-06] MEDS: SLF 3 ML SYR IV SCH ×3 (05:41→21:09)
[2018-11-06 06:40] LABS: HEMATOCRIT 33.1 % (42.0-52.0); HEMOGLOBIN 10.3 g/dl (13.5-17.5); MEAN CORPUSCULAR HEMOGLOBIN 28.6 pg (27.0-33.0); MEAN CORPUSCULAR HGB CONC 31.1 g/dl (32.0-36.5); MEAN CORPUSCULAR VOLUME 91.9 fl (80.0-96.0)
[2018-11-06 06:49] LABS: PLATELET COUNT, AUTOMATED 80 10^3/uL (150-450); WHITE BLOOD COUNT 1.9 10^3/uL (4.0-10.0)
[2018-11-06 07:07] LABS: BLOOD UREA NITROGEN 17 MG/DL (7-18); CALCIUM LEVEL 8.4 MG/DL (8.8-10.2); CARBON DIOXIDE LEVEL 43 MEQ/L (21-32); CHLORIDE LEVEL 88 MEQ/L (98-107); CREATININE FOR GFR 0.52 MG/DL (0.70-1.30); GLOMERULAR FILTRATION RATE > 60.0 (>49); GLUCOSE, FASTING 117 MG/DL (70-100); POTASSIUM SERUM 3.3 MEQ/L (3.5-5.1); SODIUM LEVEL 135 MEQ/L (136-145)
[2018-11-06 07:12] LABS: LYMPHOCYTES 1 % (16-52); METAMYELOCYTES 2 % (0-0); MONOCYTES 12 % (0-8); NEUTROPHILS 84 % (35-75)
[2018-11-06 07:13] LABS: PLATELET ESTIMATE DECREASED (NORMAL)
[2018-11-06 07:14] LABS: ANISOCYTOSIS 2+; HYPOCHROMASIA 1+
[2018-11-06] MEDS: TORSEMIDE 20 MG TAB PO SCH ×2 (08:07→17:00)
[2018-11-06] MEDS: OMEPRAZOLE 20 MG CAP PO SCH (08:07)
[2018-11-06] MEDS: VORICONAZOLE 200MG TABLET (VFEND) PO SCH ×2 (08:07→20:52)
[2018-11-06] MEDS: predniSONE 20 MG TAB PO SCH (08:07)
[2018-11-06] MEDS: SODIUM CHLORIDE 1 GM TAB PO SCH ×2 (08:08→20:52)
[2018-11-06] MEDS: ENOXAPARIN 40 MG/0.4 ML SYRINGE (J1650) SC SCH (08:08)
[2018-11-06] MEDS: ATOVAQUONE SUSP 750MG/5ML 210 ML BTL PO SCH (08:08)
[2018-11-06] MEDS ORDERED: POTASSIUM CHLORIDE 10 MEQ SR TABLET PO SCH (09:00)
--- NOTE | 2018-11-06 19:20 | IPNPDOC ---
Subjective Date Seen The patient was seen on 11/06/18. Subjective Chief Complaint/HPI Patient reports that he is back on 4L NC, as he was feeling dyspneic on 3L. He reports that he is beginning to be frustrated at his lack of progress. Pancytopenia is getting a little worse. Constitutional: Reports: Malaise; Denies: Chills, Fever ENT: Denies: Head Aches Pulmonary: Reports: Dyspnea, Cough Cardiovascular: Denies: Chest Pain, Palpitations Gastrointestinal: Denies: Nausea, Vomiting, Abdominal Pain, Diarrhea, Constipation Psych: Reports: Depression Objective Physical Examination General Exam: Positive: Alert, Cooperative, No Acute Distress Neck Exam: Negative: thyromegaly Chest Exam: Positive: Diminished (diffusely diminished with reduced air movement.), Other; Negative: Clear to auscultation, Rhonchi, Wheezing Heart Exam: Positive: Rate Normal, Regular Rhythm, Normal S1, Normal S2; Negative: Tachycardic, Irregular Rhythm Telemetry: Positive: Atrial fibrillation Abdomen Exam: Positive: Normal bowel sounds, Soft; Negative: Tenderness Male Exam: Negative: Edema Extremity Exam: Negative: Edema Psych Exam: Positive: Mood NL Assessment /Plan Problems (1) Acute respiratory failure with hypoxemia Status: Acute Response to Treatment: Stable, Improving Discussed With: Nurse, Patient Problem Specific Plan: Monitor Clinically, Repeat Labs Problem Text: 11/06 -- Patient is receiving 4L NC at rest, more with activity. 11/05 -- oxygen needs are consistent 11/04 -- slowly decreasing oxygenation needs. Atovaquone day # 02/20 11/03 transfer to the floor today. Await input from ARU, if candidate medically ready for transfer, if not, plan for transition to [facility] until STR bed available. 11/02/18: Patient continues to work with PT. ARU rehab consult placed today. He remains on O2 3L n/c at rest. He continues to desat with ambulation. Sputum cx pending. He remains on Atovaquone D#12/21 and on Vorconazole D#10 11/01 - Very slow progress. PT will continue to work on teaching purs lipped breathing and raise oxygen to 6 liters while ambulating for now Remains on Atovaquone D#11/20 for presumptive PCP, On Vorconazole for possible fungal pneumonia (Sputum fungal cultures pending - if negative, would de/c Vor con especially considering negative serologies and galactomannan Still on Prednisone 10/31/18: mild improvement. continues to require oxygen and desaturates with mild exertion. Continue with diuresis and monitor symptoms. 10/30: Doing better clinically. Still on 4L via nasal cannula, but if he moves he doesn't drop quite as fast or for quite as long. 10/28: subjectively improving. on voriconazole and atovaquone. 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 CXR looks a bit better. 10/25: voriconazole added yesterday to Multaq stopped; sxt/tmp dose optimized to 20mg/kg 10/24: ct done today. report says similar but slightly better to previous ct. await Dr. Cruz opinion about the study. 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 Plan CT tomorrow and possible bronch. He has told me that he is not enthusiastic about potentially being on a ventilator, but accepts that risk. 10/21 -- patient remains on Bactrim. If not improved by Wednesday, which is looking likely, plan bronchoscopy. Oxygen demands remain high, and patient is desatting with minimal exertion. Patient voices desire for full code status. D7 empiric Bactrim for PJP, s/p Zosyn x 6 days - stoppped by ID 10/20 Pulmonary consult pending due to severe hypoxemia with minimal exertion Unable to give sputum for Culture (No productive sputum) 10/19/18: s/p ID consult. Duonebs added q 6 hrs. DC solu-medrol. Start Prednisone 60 mg po bid. 10/18/18: repeat bl cxs and fungal smear remain pending. Patient continues with dyspnea. CT Chest competed and demonstrates improvement. see report below. 10/17/18 fungal smear/culture and DFA staining obtained (ordered 10/15!) 10/17 CT chest: The diffuse bilateral interstitial and alveolar infiltrates identified on 09/23/2018 have decreased. The bilateral pleural effusions have decreased. The extensive mediastinal lymph node enlargement identified on 05/19/2089, has resolved. 10/17/18: patient states he feels significantly better. Continues to require 5 LNC. HOLD on diuresing due to soft BP. HR remains stable. Bl cx and sputum cx pending. 10/16: LDH elevated above baseline elevation from lymphoma which can be seen c PJP. Sulfa/TMP started yesterday. Hypoxic with minimal exertion. Diuresis has diminished since change to po lasix. will repeat BNP, may need IV lasix again. 09/28/18 Fungitell >500-Ddx: PJP, Lise spp, Aspergillus less likely given 09/24 A flavus/fumigatus, niger Ab -/galacto Ag - (2) Acute on chronic diastolic (congestive) heart failure Status: Acute Response to Treatment: Stable, Improving Problem Specific Plan: Monitor Clinically Problem Text: 11/02/18: Appears well compensated. Remains on Torsemide 20 mg po bid 11/01 - Now on Torsemide 20 BID per nephrology 10/30: He is being carefully diuresed by the Nephro team. Will defer to them for further management. h dfffffffffffffffffffffffffffffffffffffffffffffffffffffffffffffffffffffffffffffffffffffffffffffffffff ffffffffffffffffffffffffffffffffffffffffffffffffffffffffffffffffffffffffffffffffffffffffffffffffffff ffffffffffffffffffffffffffffffffffffffffffffffffffffffffffffffffffffffffffffffffffffffffffffffffffff ffffffffffffffffffffffffffffffffffffffffffffffffffffffffffffffffffffffffffffffffffffffffffffffffffff ffffffffffffffffffffffffffffffffffffffffffffffffffffffffffffffffffffffffffffffffffffffffffffffffffff ffffffffffffffffffffffffffffffffffffffffffffffffffffffffffffffffffffffffffffffffffffffffffffffffffff ffffffffffffffffffffffffffffffffffffffffffffffffffffffffffffffffffffffffffffffffffffffffffffffffffff ffffffffffffffffffffffffffffffffffffffffffffffffffffffffffffffffffffffffffffffffffffffffffffffffffff ffffffffffffffffffffffffffffffffffffffffffffffffffffffffffffffffffffffffffffffffffffffffffffffffffff ffffffffffffffffffffffffffffffffffffffffffffffffffffffffffffffffffffffffffffffffffffffffffffffffffff ffffffffffffffffffffffffffffffffffffffffffffffffffffffffffffffffffffffffffffffffffffffffffffffffffff ffffffffffffffffffffffffffffffffffffffffffffffffffffffffffffffffffffffffffffffffffffffffffffffffffff ffffffffffffffffffffffffffffffffffffffffffffffffffffffffffffffffffffffffffffffffffffffffffffffffffff ffffffffffffffffffffffffffffffffffffffffffffffffffffffffffffffffffffffffffffffffffffffffffffffffffff ffffffffffffffffffffffffffffffffffffffffffffffffffffffffffffffffffffffffffffffffffffffffffffffffffff ffffffffffffffffffffffffffffffffffffffffffffffffffffffffffffffffffffffffffffffffffffffffffffffffffff ffffffffffffffffffffffffffffffffffffffffffffffffffffffffffffffffffffffffffffffffffffffffffffffffffff ffffffffffffffffffffffffffffffffffffffffffffffffffffffffffffffffffffffffffffffffffffffffffffffffffff ffffffffffffffffffffffffffffffffffffffffffffffffffffffffffffffffffffffffffffffffffffffffffffffffffff ffffffffffffffffffffffffffffffffffffffffffffffffffffffffffffffffffffffffffffffffffffffffffffffffffff ffffffffffffffffffffffffffffffffffffffffffffffffffffffffffffffffffffffffffffffffffffffffffffffffffff ffffffffffffffffffffffffffffffffffffffffffffffffffffffffffffffffffffffffffffffffffffffffffffffffffff ffffffffffffffffffffffffffffffffffffffffffffffffffffffffffffffffffffffffffffffffffffffffffffffffffff ffffffffffffffffffffffffffffffffffffffffffffffffffffffffffffffffffffffffffffffffffffffffffffffffffff ffffffffffffffffffffffffffffffffffffffffffffffffffffffffffffffffffffffffffffffffffffffffffffffffffff ffffffffffffffffffffffffffffffffffffffffffffffffffffffffffffffffffffffffffffffffffffffffffffffffffff ffffffffffffffffffffffffffffffffffffffffffffffffffffffffffffffffffffffffffffffffffffffffffffffffffff ffffffffffffffffffffffffffffffffffffffffffffffffffffffffffffffffffffffffffffffffffffffffffffffffffff ffffffffffffffffffffffffffffffffffffffffffffffffffffffffffffffffffffffffffffffffffffffffffffffffffff ffffffffffffffffffffffffffffffffffffffffffffffffffffffffffffffffffffffffffffffffffffffffffffffffffff ffffffffffffffffffffffffffffffffffffffffffffffffffffffffffffffffffffffffffffffffffffffffffffffffffff ffffffffffffffffffffffffffffffffffffffffffffffffffffffffffffffffffffffffffffffffffffffffffffffffffff ffffffffffffffffffffffffffffffffffffffffffffffffffffffffffffffffffffffffffffffffffffffffffffffffffff ffffffffffffffffffffffffffffffffffffffffffffffffffffffffffffffffffffffffffffffffffffffffffffffffffff ffffffffffffffffffffffffffffffffffffffffffffffffffffffffffffffffffffffffffffffffffffffffffffffffffff ffffffffffffffffffffffffffffffffffffffffffffffffffffffffffffffffffffffffffffffffffffffffffffffffffff ffffffffffffffffffffffffffffffffffffffffffffffffffffffffffffffffffffffffffffffffffffffffffffffffffff ffffffffffffffffffffffffffffffffffffffffffffffffffffffffffffffffffffffffffffffffffffffffffffffffffff ffffffffffffffffffffffffffffffffffffffffffffffffffffffffffffffffffffffffffffffffffffffffffffffffffff ffffffffffffffffffffffffffffffffffffffffffffffffffffffffffffffffffffffffffffffffffffffffffffffffffff ffffffffffffffffffffffffffffffffffffffffffffffffffffffffffffffffffffffffffffffffffffffffffffffffffff ffffffffffffffffffffffffffffffffffffffffffffffffffffffffffffffffffffffffffffffffffffffffffffffffffff ffffffffffffffffffffffffffffffffffffffffffffffffffffffffffffffffffffffffffffffffffffffffffffffffffff ffffffffffffffffffffffffffffffffffffffffffffffffffffffffffffffffffffffffffffffffffffffffffffffffffff ffffffffffffffffffffffffffffffffffffffffffffffffffffffffffffffffffffffffffffffffffffffffffffffffffff ffffffffffffffffffffffffffffffffffffffffffffffffffffffffffffffffffffffffffffffffffffffffffffffffffff ffffffffffffffffffffffffffffffffffffffffffffffffffffffffffffffffffffffffffffffffffffffffffffffffffff ffffffffffffffffffffffffffffffffffffffffffffffffffffffffffffffffffffffffffffffffffffffffffffffffffff ffffffffffffffffffffffffffffffffffffffffffffffffffffffffffffffffffffffffffffffffffffffffffffffffffff ffffffffffffffffffffffffffffffffffffffffffffffffffffffffffffffffffffffffffffffffffffffffffffffffffff ffffffffffffffffffffffffffffffffffffffffffffffffffffffffffffffffffffffffffffffffffffffffffffffffffff ffffffffffffffffffffffffffffffffffffffffffffffffffffffffffffffffffffffffffffffffffffffffffffffffffff ffffffffffffffffffffffffffffffffffffffffffffffffffffffffffffffffffffffffffffffffffffffffffffffffffff ffffffffffffffffffffffffffffffffffffffffffffffffffffffffffffffffffffffffffffffffffffffffffffffffffff ffffffffffffffffffffffffffffffffffffffffffffffffffffffffffffffffffffffffffffffffffffffffffffffffffff ffffffffffffffffffffffffffffffffffffffffffffffffffffffffffffffffffffffffffffffffffffffffffffffffffff ffffffffffffffffffffffffffffffffffffffffffffffffffffffffffffffffffffffffffffffffffffffffffffffffffff ffffffffffffffffffffffffffffffffffffffffffffffffffffffffffffffffffffffffffffffffffffffffffffffffffff ffffffffffffffffffffffffffffffffffffffffffffffffffffffffffffffffffffffffffffffffffffffffffffffffffff ffffffffffffffffffffffffffffffffffffffffffffffffffffffffffffffffffffffffffffffffffffffffffffffffffff ffffffffffffffffffffffffffffffffffffffffffffffffffffffffffffffffffffffffffffffffffffffffffffffffffff ffffffffffffffffffffffffffffffffffffffffffffffffffffffffffffffffffffffffffffffffffffffffffffffffffff ffffffffffffffffffffffffffffffffffffffffffffffffffffffffffffffffffffffffffffffffffffffffffffffffffff ffffffffffffffffffffffffffffffffffffffffffffffffffffffffffffffffffffffffffffffffffffffffffffffffffff ffffffffffffffffffffffffffffffffffffffffffffffffffffffffffffffffffffffffffffffffffffffffffffffffffff ffffffffffffffffffffffffffffffffffffffffffffffffffffffffffffffffffffffffffffffffffffffffffffffffffff ffffffffffffffffffffffffffffffffffffffffffffffffffffffffffffffffffffffffffffffffffffffffffffffffffff ffffffffffffffffffffffffffffffffffffffffffffffffffffffffffffffffffffffffffffffffffffffffffffffffffff ffffffffffffffffffffffffffffffffffffffffffffffffffffffffffffffffffffffffffffffffffffffffffffffffffff ffffffffffffffffffffffffffffffffffffffffffffffffffffffffffffffffffffffffffffffffffffffffffffffffffff ffffffffffffffffffffffffffffffffffffffffffffffffffffffffffffffffffffffffffffffffffffffffffffffffffff ffffffffffffffffffffffffffffffffffffffffffffffffffffffffffffffffffffffffffffffffffffffffffffffffffff ffffffffffffffffffffffffffffffffffffffffffffffffffffffffffffffffffffffffffffffffffffffffffffffffffff ffffffffffffffffffffffffffffffffffffffffffffffffffffffffffffffffffffffffffffffffffffffffffffffffffff fffffffffffffffffffffffffffffffffffffffffffffffffffffffffffffffffffffffffff 6/28: no lasix for now. 10/27: due to rapidly worsening hyponatremia, furosemide has been held. 10/26: lasix increased to 60 bid overnight, Dr. Cruz ordered 100mg IV lasix dose this am. 10/23 -- albumin and pro-BNP ordered for tomorrow; renal function has remained stable, though there is some concern that his malaise today may indicate overdiuresis. 10/22 -- I&Os show patient consistently net negative. 10/21 - Getting Lasix 40 BID with fair diuresis per I + Os BP stable 10/17/18: HOLD on diuresing due to soft BP. HR remains stable. 10/16: CXR looks a little wetter, BNP pending; may need increase laxix CXR in am, continue lasix for now. Last ECHO 09/18 with nl EF< Gr 1 diastolic dysfunction. Cont with Lasix IV, change diet to low sodium. Monitor I & Os. (3) Pancytopenia Problem Text: 11/06 -- he has previously been pancytopenic, though that was felt to be related to his chemotherapy. At this point, I suspect that this may be secondary to atovaquone. Infectious disease is not engine repairer production today, but will be tomorrow. He has previously been intolerant of Bactrim. I'm holding atovaquone at the moment, pending a conversation with ID tomorrow. If ID feels that this is likely not the cause of his pancytopenia, may require further discussion with heme/onc. (4) Large B-cell lymphoma Status: Acute Problem Specific Plan: Monitor Clinically Problem Text: 10/16: may need to be rescheduled depending. Follows with [facility] On[facility] as outpt, scheduled for final chemo 10/21. (5) Hyponatremia Status: Resolved Response to Treatment: Stable, Improving Problem Text: 11/03 Na 140, monitor. 11/02/18: Slow improvement, Na+ 135 11/01 - Treated as SIADH - improving with diuretics - now on Torsemide as above 10/31/18: continues to improve 10/30: His sodium has improved well with Nephro's help. Appreciate the help. 10/28: hypertonic saline infusion stopped for now but sodium slightly lower than it had been. being managed by Dr Pedro. 10/27: after IV lasix yesterday, repeat sodium showed quick drop to 120 accompanied by STUDENT SERVICES REPRESENTATIVE symptoms of diplopia and confusion and hallucinations. Dr. Miri Pedro consulted and patient moved to ICU to administer 3% NS, being given through port. STUDENT SERVICES REPRESENTATIVE symptoms have resolved although weakness remains. and 10/26: sodium down to 124 today. will restrict hypotonic fluids, K now normal. possible side effect of SXT/TMP. 10/25: slightly worse sodium and persistent hyperkalemia. this combination can be side effect of SXT/TMP. Has sent communication to Dr. Wang uY to ask about this issue and consideration for alternative for presumed PJP vs continue at this dose and monitor. his sxt/tmp is in water, so asked pharmacy to reduce volume that his antibiotic is in. not stable in NS, only D5W. (6) Pancytopenia due to chemotherapy Status: Resolved Problem Text: s/p Nulasta 10/14 (7) Paroxysmal atrial fibrillation Status: Chronic Response to Treatment: Stable Problem Text: 10/28: rate control remains adequate with beta braden. 10/25: Multaq stopped due to interaction with voriconazole after discussion with Dr. Arellano. rate controlled on Metoprolol (8) Gram-positive cocci in clusters Status: Resolved Response to Treatment: Stable Problem Text: 11/02/18: BC negative after 5 days 10/19/18: repeat bl. cx negative. 10/17 BCX2 P 10/13 BCX1/1 + for micrococcus. most likley contaminant. will repeat BCX Plan/VTE VTE Prophylaxis Ordered?: Yes (Lovenox) Plan Therapy: PT, OT VS, I&O, 24H, Fishbone Vital Signs/I&O Vital Signs Date Time Temp Pulse Resp B/P (MAP) Pulse Ox O2 Delivery O2 Flow Rate FiO2 11/06/18 18:00 96.9 72 19 117/84 (95) 96 4.0 11/06/18 07:45 Nasal Cannula I&O- Last 24 Hours up to 6 AM 11/06/18 06:00 Intake Total 780 ml Output Total 1350 ml Balance -570 ml Laboratory Data 24H LABS Laboratory Tests 2 11/06/18 05:35: Immature Granulocyte % (Auto) , White Blood Count 1.9L, Red Blood Count 3.60L, Hemoglobin 10.3L, Hematocrit 33.1L, Mean Corpuscular Volume 91.9, Mean Corpuscular Hemoglobin 28.6, Mean Corpuscular Hemoglobin Concent 31.1L, Red Cell Distribution Width 19.6H, Platelet Count 80L, Lymphocytes # (Auto) , Nucleated Red Blood Cells % (auto) 0.0, Neutrophils 84H, Band Neutrophils 1, Lymphocytes (Manual) 1L, Monocytes (Manual) 12H, Metamyelocytes 2H, Platelet Estimate DECREASED, Hypochromasia 1+, Basophilic Stippling 1+, Anisocytosis 2+, Anion Gap 4L, Glomerular Filtration Rate > 60.0, Blood Urea Nitrogen 17, Creatinine 0.52L, Sodium Level 135L, Potassium Level 3.3L, Chloride Level 88L, Carbon Dioxide Level 43H, Calcium Level 8.4L CBC/BMP Laboratory Tests 11/06/18 05:35 Red Blood Count 3.60 L, Mean Corpuscular Volume 91.9, Mean Corpuscular Hemoglobin 28.6, Mean Corpuscular Hemoglobin Concent 31.1 L, Red Cell Distribution Width 19.6 H, Lymphocytes # (Auto) , Calcium Level 8.4 L LAWRENCE CARDENAS DO Nov 06, 2018 19:20
[2018-11-06] MEDS: POTASSIUM CHLORIDE 10 MEQ SR TABLET PO SCH (20:51)
[2018-11-06] MEDS: METOPROLOL SUCC *XL* 12.5MG PER 1/2 TAB (TopROL *XL*) PO SCH (20:52)
[2018-11-07] MEDS: IPRATROPIUM 0.5MG/ALBUTEROL 2.5MG INH SOL UD 3ML (DUONEB)(J7620) NEB SCH ×4 (01:59→20:56)
[2018-11-07 02:00] VITALS: BP 130/80
[2018-11-07] MEDS: SLF 3 ML SYR IV SCH ×3 (05:22→20:52)
[2018-11-07 06:00] VITALS: BP 126/76
[2018-11-07 06:12] LABS: HEMATOCRIT 34.6 % (42.0-52.0); HEMOGLOBIN 10.7 g/dl (13.5-17.5); MEAN CORPUSCULAR HEMOGLOBIN 27.9 pg (27.0-33.0); MEAN CORPUSCULAR HGB CONC 30.9 g/dl (32.0-36.5); MEAN CORPUSCULAR VOLUME 90.1 fl (80.0-96.0); RED BLOOD COUNT 3.84 10^6/uL (4.30-6.10)
[2018-11-07 06:34] LABS: BLOOD UREA NITROGEN 16 MG/DL (7-18); CALCIUM LEVEL 8.3 MG/DL (8.8-10.2); CARBON DIOXIDE LEVEL 44 MEQ/L (21-32); CHLORIDE LEVEL 88 MEQ/L (98-107); GLOMERULAR FILTRATION RATE > 60.0 (>49); GLUCOSE, FASTING 101 MG/DL (70-100); POTASSIUM SERUM 3.8 MEQ/L (3.5-5.1); SODIUM LEVEL 137 MEQ/L (136-145)
[2018-11-07 06:57] LABS: PLATELET COUNT, AUTOMATED 91 10^3/uL (150-450); WHITE BLOOD COUNT 1.6 10^3/uL (4.0-10.0)
[2018-11-07 07:01] LABS: ANISOCYTOSIS 2+; LYMPHOCYTES 2 % (16-52); METAMYELOCYTES 2 % (0-0); MONOCYTES 8 % (0-8); MYELOCYTES 1 % (0-0); NEUTROPHILS 86 % (35-75); PLATELET ESTIMATE DECREASED (NORMAL)
[2018-11-07 07:02] LABS: HYPOCHROMASIA 1+
[2018-11-07] MEDS: POTASSIUM CHLORIDE 10 MEQ SR TABLET PO SCH ×2 (08:51→20:51)
[2018-11-07] MEDS: SODIUM CHLORIDE 1 GM TAB PO SCH (08:52)
[2018-11-07] MEDS: OMEPRAZOLE 20 MG CAP PO SCH (08:52)
[2018-11-07] MEDS: TORSEMIDE 20 MG TAB PO SCH ×2 (08:52→17:00)
[2018-11-07] MEDS: predniSONE 20 MG TAB PO SCH (08:52)
[2018-11-07] MEDS: VORICONAZOLE 200MG TABLET (VFEND) PO SCH (08:52)
[2018-11-07] MEDS: ENOXAPARIN 40 MG/0.4 ML SYRINGE (J1650) SC SCH (08:53)
[2018-11-07 10:00] VITALS: BP 107/74
--- NOTE | 2018-11-07 11:30 | IPNPDOC ---
Subjective Date Seen The patient was seen on 11/07/18. Subjective Chief Complaint/HPI still dyspneic with minimal exertion ENT: Denies: Head Aches Pulmonary: Reports: Dyspnea; Denies: Pleuritic Chest Pain Cardiovascular: Denies: Chest Pain, Palpitations, Orthopnea Gastrointestinal: Denies: Nausea, Vomiting, Abdominal Pain Neurological: Reports: Weakness (globally weak but notes some improvement in ambulation distance) Psych: Reports: Mood Normal Objective Physical Examination General Exam: Positive: Alert, Cooperative, No Acute Distress Neck Exam: Negative: thyromegaly Chest Exam: Positive: Diminished (diffusely diminished with reduced air movement.), Other; Negative: Clear to auscultation, Rhonchi, Wheezing Heart Exam: Positive: Rate Normal, Regular Rhythm, Normal S1, Normal S2; Negative: Tachycardic, Irregular Rhythm Telemetry: Positive: Atrial fibrillation Abdomen Exam: Positive: Normal bowel sounds, Soft; Negative: Tenderness Male Exam: Negative: Edema Extremity Exam: Negative: Edema Skin Exam: Positive: Nl turgor and temperature, Other skin issue (scattered small ecchymoses) Neuro Exam: Positive: Normal Speech Psych Exam: Positive: Mood NL, Oriented x 3 Assessment /Plan Problems (1) Acute respiratory failure with hypoxemia Status: Acute Response to Treatment: Stable, Improving Discussed With: Nurse, Patient Problem Specific Plan: Monitor Clinically, Repeat Labs Problem Text: 11/07/18: still at 4L with rest. improving very slowly. For PCP Not so clear that he needs 21 days of atovaquone. He has had 21+days of sxt/tmp plus atovaquone. Will request f/u opinion from Dr. Yu on this point. Also no evidence to show ongoing need for Voriconazole since sputum micro and blood/urine tests are negative for fungi. Will order f/u xray. 11/06 -- Patient is receiving 4L NC at rest, more with activity. 11/05 -- oxygen needs are consistent 11/04 -- slowly decreasing oxygenation needs. Atovaquone day # 02/20 11/03 transfer to the floor today. Await input from ARU, if candidate medically ready for transfer, if not, plan for transition to [facility] until STR bed available. 11/02/18: Patient continues to work with PT. ARU rehab consult placed today. He remains on O2 3L n/c at rest. He continues to desat with ambulation. Sputum cx pending. He remains on Atovaquone D#12/21 and on Vorconazole D#10 11/01 - Very slow progress. PT will continue to work on teaching purs lipped breathing and raise oxygen to 6 liters while ambulating for now Remains on Atovaquone D#11/20 for presumptive PCP, On Vorconazole for possible fungal pneumonia (Sputum fungal cultures pending - if negative, would de/c Vorcon especially considering negative serologies and galactomannan Still on Prednisone 10/31/18: mild improvement. continues to require oxygen and desaturates with mild exertion. Continue with diuresis and monitor symptoms. 10/30: Doing better clinically. Still on 4L via nasal cannula, but if he moves he doesn't drop quite as fast or for quite as long. 10/28: subjectively improving. on voriconazole and atovaquone. 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 CXR looks a bit better. 10/25: voriconazole added yesterday to Multaq stopped; sxt/tmp dose optimized to 20mg/kg 10/24: ct done today. report says similar but slightly better to previous ct. await Dr. Cruz opinion about the study. 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 Plan CT tomorrow and possible bronch. He has told me that he is not enthusiastic about potentially being on a ventilator, but accepts that risk. 10/21 -- patient remains on Bactrim. If not improved by Wednesday, which is looking likely, plan bronchoscopy. Oxygen demands remain high, and patient is desatting with minimal exertion. Patient voices desire for full code status. D7 empiric Bactrim for PJP, s/p Zosyn x 6 days - stoppped by ID 10/20 Pulmonary consult pending due to severe hypoxemia with minimal exertion Unable to give sputum for Culture (No productive sputum) 10/19/18: s/p ID consult. Duonebs added q 6 hrs. DC solu-medrol. Start Prednisone 60 mg po bid. 10/18/18: repeat bl cxs and fungal smear remain pending. Patient continues with dyspnea. CT Chest competed and demonstrates improvement. see report below. 10/17/18 fungal smear/culture and DFA staining obtained (ordered 10/15!) 10/17 CT chest: The diffuse bilateral interstitial and alveolar infiltrates identified on 09/23/2018 have decreased. The bilateral pleural effusions have decreased. The extensive mediastinal lymph node enlargement identified on 05/19/2089, has resolved. 10/17/18: patient states he feels significantly better. Continues to require 5 LNC. HOLD on diuresing due to soft BP. HR remains stable. Bl cx and sputum cx pending. 10/16: LDH elevated above baseline elevation from lymphoma which can be seen c PJP. Sulfa/TMP started yesterday. Hypoxic with minimal exertion. Diuresis has diminished since change to po lasix. will repeat BNP, may need IV lasix again. 09/28/18 Fungitell >500-Ddx: PJP, Lise spp, Aspergillus less likely given 09/24 A flavus/fumigatus, niger Ab -/galacto Ag - (2) Acute on chronic diastolic (congestive) heart failure Status: Acute Response to Treatment: Stable, Improving Problem Specific Plan: Monitor Clinically Problem Text: 11/07: nephrology has signed off for now. will stop NaCl tabs for now also, continue to monitor Na levels 11/02/18: Appears well compensated. Remains on Torsemide 20 mg po bid 11/01 - Now on Torsemide 20 BID per nephrology 10/30: He is being carefully diuresed by the Nephro team. Will defer to them for further management. hdfffffffffffffffffffffffffffffffffffffffffffffffff ffffffffffffffffffffffffffffffffffffffffffffffffffffffffffffffffffffffffffffffffffffffffffffffffffff ffffffffffffffffffffffffffffffffffffffffffffffffffffffffffffffffffffffffffffffffffffffffffffffffffff ffffffffffffffffffffffffffffffffffffffffffffffffffffffffffffffffffffffffffffffffffffffffffffffffffff ffffffffffffffffffffffffffffffffffffffffffffffffffffffffffffffffffffffffffffffffffffffffffffffffffff ffffffffffffffffffffffffffffffffffffffffffffffffffffffffffffffffffffffffffffffffffffffffffffffffffff ffffffffffffffffffffffffffffffffffffffffffffffffffffffffffffffffffffffffffffffffffffffffffffffffffff ffffffffffffffffffffffffffffffffffffffffffffffffffffffffffffffffffffffffffffffffffffffffffffffffffff ffffffffffffffffffffffffffffffffffffffffffffffffffffffffffffffffffffffffffffffffffffffffffffffffffff ffffffffffffffffffffffffffffffffffffffffffffffffffffffffffffffffffffffffffffffffffffffffffffffffffff ffffffffffffffffffffffffffffffffffffffffffffffffffffffffffffffffffffffffffffffffffffffffffffffffffff ffffffffffffffffffffffffffffffffffffffffffffffffffffffffffffffffffffffffffffffffffffffffffffffffffff ffffffffffffffffffffffffffffffffffffffffffffffffffffffffffffffffffffffffffffffffffffffffffffffffffff ffffffffffffffffffffffffffffffffffffffffffffffffffffffffffffffffffffffffffffffffffffffffffffffffffff ffffffffffffffffffffffffffffffffffffffffffffffffffffffffffffffffffffffffffffffffffffffffffffffffffff ffffffffffffffffffffffffffffffffffffffffffffffffffffffffffffffffffffffffffffffffffffffffffffffffffff ffffffffffffffffffffffffffffffffffffffffffffffffffffffffffffffffffffffffffffffffffffffffffffffffffff ffffffffffffffffffffffffffffffffffffffffffffffffffffffffffffffffffffffffffffffffffffffffffffffffffff ffffffffffffffffffffffffffffffffffffffffffffffffffffffffffffffffffffffffffffffffffffffffffffffffffff ffffffffffffffffffffffffffffffffffffffffffffffffffffffffffffffffffffffffffffffffffffffffffffffffffff ffffffffffffffffffffffffffffffffffffffffffffffffffffffffffffffffffffffffffffffffffffffffffffffffffff ffffffffffffffffffffffffffffffffffffffffffffffffffffffffffffffffffffffffffffffffffffffffffffffffffff ffffffffffffffffffffffffffffffffffffffffffffffffffffffffffffffffffffffffffffffffffffffffffffffffffff ffffffffffffffffffffffffffffffffffffffffffffffffffffffffffffffffffffffffffffffffffffffffffffffffffff ffffffffffffffffffffffffffffffffffffffffffffffffffffffffffffffffffffffffffffffffffffffffffffffffffff ffffffffffffffffffffffffffffffffffffffffffffffffffffffffffffffffffffffffffffffffffffffffffffffffffff ffffffffffffffffffffffffffffffffffffffffffffffffffffffffffffffffffffffffffffffffffffffffffffffffffff ffffffffffffffffffffffffffffffffffffffffffffffffffffffffffffffffffffffffffffffffffffffffffffffffffff ffffffffffffffffffffffffffffffffffffffffffffffffffffffffffffffffffffffffffffffffffffffffffffffffffff ffffffffffffffffffffffffffffffffffffffffffffffffffffffffffffffffffffffffffffffffffffffffffffffffffff ffffffffffffffffffffffffffffffffffffffffffffffffffffffffffffffffffffffffffffffffffffffffffffffffffff ffffffffffffffffffffffffffffffffffffffffffffffffffffffffffffffffffffffffffffffffffffffffffffffffffff ffffffffffffffffffffffffffffffffffffffffffffffffffffffffffffffffffffffffffffffffffffffffffffffffffff ffffffffffffffffffffffffffffffffffffffffffffffffffffffffffffffffffffffffffffffffffffffffffffffffffff ffffffffffffffffffffffffffffffffffffffffffffffffffffffffffffffffffffffffffffffffffffffffffffffffffff ffffffffffffffffffffffffffffffffffffffffffffffffffffffffffffffffffffffffffffffffffffffffffffffffffff ffffffffffffffffffffffffffffffffffffffffffffffffffffffffffffffffffffffffffffffffffffffffffffffffffff ffffffffffffffffffffffffffffffffffffffffffffffffffffffffffffffffffffffffffffffffffffffffffffffffffff ffffffffffffffffffffffffffffffffffffffffffffffffffffffffffffffffffffffffffffffffffffffffffffffffffff ffffffffffffffffffffffffffffffffffffffffffffffffffffffffffffffffffffffffffffffffffffffffffffffffffff ffffffffffffffffffffffffffffffffffffffffffffffffffffffffffffffffffffffffffffffffffffffffffffffffffff ffffffffffffffffffffffffffffffffffffffffffffffffffffffffffffffffffffffffffffffffffffffffffffffffffff ffffffffffffffffffffffffffffffffffffffffffffffffffffffffffffffffffffffffffffffffffffffffffffffffffff ffffffffffffffffffffffffffffffffffffffffffffffffffffffffffffffffffffffffffffffffffffffffffffffffffff ffffffffffffffffffffffffffffffffffffffffffffffffffffffffffffffffffffffffffffffffffffffffffffffffffff ffffffffffffffffffffffffffffffffffffffffffffffffffffffffffffffffffffffffffffffffffffffffffffffffffff ffffffffffffffffffffffffffffffffffffffffffffffffffffffffffffffffffffffffffffffffffffffffffffffffffff ffffffffffffffffffffffffffffffffffffffffffffffffffffffffffffffffffffffffffffffffffffffffffffffffffff ffffffffffffffffffffffffffffffffffffffffffffffffffffffffffffffffffffffffffffffffffffffffffffffffffff ffffffffffffffffffffffffffffffffffffffffffffffffffffffffffffffffffffffffffffffffffffffffffffffffffff ffffffffffffffffffffffffffffffffffffffffffffffffffffffffffffffffffffffffffffffffffffffffffffffffffff ffffffffffffffffffffffffffffffffffffffffffffffffffffffffffffffffffffffffffffffffffffffffffffffffffff ffffffffffffffffffffffffffffffffffffffffffffffffffffffffffffffffffffffffffffffffffffffffffffffffffff ffffffffffffffffffffffffffffffffffffffffffffffffffffffffffffffffffffffffffffffffffffffffffffffffffff ffffffffffffffffffffffffffffffffffffffffffffffffffffffffffffffffffffffffffffffffffffffffffffffffffff ffffffffffffffffffffffffffffffffffffffffffffffffffffffffffffffffffffffffffffffffffffffffffffffffffff ffffffffffffffffffffffffffffffffffffffffffffffffffffffffffffffffffffffffffffffffffffffffffffffffffff ffffffffffffffffffffffffffffffffffffffffffffffffffffffffffffffffffffffffffffffffffffffffffffffffffff ffffffffffffffffffffffffffffffffffffffffffffffffffffffffffffffffffffffffffffffffffffffffffffffffffff ffffffffffffffffffffffffffffffffffffffffffffffffffffffffffffffffffffffffffffffffffffffffffffffffffff ffffffffffffffffffffffffffffffffffffffffffffffffffffffffffffffffffffffffffffffffffffffffffffffffffff ffffffffffffffffffffffffffffffffffffffffffffffffffffffffffffffffffffffffffffffffffffffffffffffffffff ffffffffffffffffffffffffffffffffffffffffffffffffffffffffffffffffffffffffffffffffffffffffffffffffffff ffffffffffffffffffffffffffffffffffffffffffffffffffffffffffffffffffffffffffffffffffffffffffffffffffff ffffffffffffffffffffffffffffffffffffffffffffffffffffffffffffffffffffffffffffffffffffffffffffffffffff ffffffffffffffffffffffffffffffffffffffffffffffffffffffffffffffffffffffffffffffffffffffffffffffffffff ffffffffffffffffffffffffffffffffffffffffffffffffffffffffffffffffffffffffffffffffffffffffffffffffffff ffffffffffffffffffffffffffffffffffffffffffffffffffffffffffffffffffffffffffffffffffffffffffffffffffff ffffffffffffffffffffffffffffffffffffffffffffffffffffffffffffffffffffffffffffffffffffffffffffffffffff ffffffffffffffffffffffffffffffffffffffffffffffffffffffffffffffffffffffffffffffffffffffffffffffffffff ffffffffffffffffffffffffffffffffffffffffffffffffffffffffffffffffffffffffffffffffffffffffffffffffffff ffffffffffffffffffffffffffffffffffffffffffffffffffffffffffffffffffffffffffffffffffffffffffffffffffff ffffffffffffffffffffffffffffffffffffffffffffffffffffffffffffffffffffffffffffffffffffffffffffffffffff ffffffffffffffffffffffffffffffffffffffffffffffffffffffffffffffffffffffffffffffffffffffffffffffffffff ffffffffffffffffffffffffffffffffffffffffffffffffffffffffffffffffffffffffffffffffffffffffffffffffffff fffffffffffffffffffffffff 10/28: no lasix for now. 10/27: due to rapidly worsening hyponatremia, furosemide has been held. 10/26: lasix increased to 60 bid overnight, Dr. Cruz ordered 100mg IV lasix dose this am. 10/23 -- albumin and pro-BNP ordered for tomorrow; renal function has remained stable, though there is some concern that his malaise today may indicate overdiuresis. 10/22 -- I&Os show patient consistently net negative. 10/21 - Getting Lasix 40 BID with fair diuresis per I + Os BP stable 10/17/18: HOLD on diuresing due to soft BP. HR remains stable. 10/16: CXR looks a little wetter, BNP pending; may need increase laxix CXR in am, continue lasix for now. Last ECHO 09/18 with nl EF< Gr 1 diastolic dysfunction. Cont with Lasix IV, change diet to low sodium. Monitor I & Os. (3) Pancytopenia Problem Text: 11/07: platelets up a little today but WBC down to 1.6 K. At this point believed to be side effect of atovaquone, held since yesterday. 11/06 -- he has previously been pancytopenic, though that was felt to be related to his chemotherapy. At this point, I suspect that this may be secondary to atovaquone. 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 He has previously been intolerant of Bactrim. I'm holding atovaquone at the moment, pending a conversation with ID tomorrow. If ID feels that this is likely not the cause of his pancytopenia, may require further discussion with heme/onc. (4) Large B-cell lymphoma Status: Acute Problem Specific Plan: Monitor Clinically Problem Text: 10/16: may need to be rescheduled depending. Follows with [facility] Onc as outpt, scheduled for final chemo 10/21. (5) Hyponatremia Status: Resolved Response to Treatment: Stable, Improving Problem Text: 11/03 Na 140, monitor. 11/02/18: Slow improvement, Na+ 135 11/01 - Treated as SIADH - improving with diuretics - now on Torsemide as above 10/31/18: continues to improve 10/30: His sodium has improved well with Nephro's help. Appreciate the help. 10/28: hypertonic saline infusion stopped for now but sodium slightly lower than it had been. being managed by Dr Pedro. 10/27: after IV lasix yesterday, repeat sodium showed quick drop to 120 accompan ied by BARREL LINER symptoms of diplopia and confusion and hallucinations. Dr. Miri Pedro consulted and patient moved to ICU to administer 3% NS, being given through port. BARREL LINER symptoms have resolved although weakness remains. and 10/26: sodium down to 124 today. will restrict hypotonic fluids, K now normal. possible side effect of SXT/TMP. 10/25: slightly worse sodium and persistent hyperkalemia. this combination can be side effect of SXT/TMP. Has sent communication to Dr. 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 his sxt/tmp is in water, so asked pharmacy to reduce volume that his antibiotic is in. not stable in NS, only D5W. (6) Pancytopenia due to chemotherapy Status: Resolved Problem Text: s/p Nulasta 10/14 (7) Paroxysmal atrial fibrillation Status: Chronic Response to Treatment: Stable Problem Text: 10/28: rate control remains adequate with beta braden. 10/25: Multaq stopped due to interaction with voriconazole after discussion with Dr. Arellano. rate controlled on Metoprolol (8) Gram-positive cocci in clusters Status: Resolved Response to Treatment: Stable Problem Text: 11/02/18: BC negative after 5 days 10/19/18: repeat bl. cx negative. 10/17 BCX2 P 10/13 BCX1/1 + for micrococcus. most likley contaminant. will repeat BCX Plan/VTE VTE Prophylaxis Ordered?: Yes (Lovenox) Plan Therapy: PT, OT VS, I&O, 24H, Fishbone Vital Signs/I&O Vital Signs Date Time Temp Pulse Resp B/P (MAP) Pulse Ox O2 Delivery O2 Flow Rate FiO2 11/07/18 10:00 96.7 107 17 107/74 (85) 100 4.0 11/06/18 07:45 Nasal Cannula I&O- Last 24 Hours up to 6 AM 11/07/18 06:00 Intake Total 820 ml Output Total 1350 ml Balance -530 ml Laboratory Data 24H LABS Laboratory Tests 2 11/07/18 05:49: Immature Granulocyte % (Auto) , White Blood Count 1.6L, Red Blood Count 3.84L, Hemoglobin 10.7L, Hematocrit 34.6L, Mean Corpuscular Volume 90.1, Mean Corpuscu lar Hemoglobin 27.9, Mean Corpuscular Hemoglobin Concent 30.9L, Red Cell Distribution Width 19.9H, Platelet Count 91L, Lymphocytes # (Auto) , Nucleated Red Blood Cells % (auto) 0.0, Neutrophils 86H, Band Neutrophils 1, Lymphocytes (Manual) 2L, Monocytes (Manual) 8, Metamyelocytes 2H, Myelocytes 1H, Platelet Estimate DECREASED, Immature Platelet Fraction 3.4, Hypochromasia 1+, Anisocytosis 2+, Anion Gap 5L, Glomerular Filtration Rate > 60.0, Blood Urea Nitrogen 16, Creatinine 0.50L, Sodium Level 137, Potassium Level 3.8, Chloride Level 88L, Carbon Dioxide Level 44H, Calcium Level 8.3L CBC/BMP Laboratory Tests 11/07/18 05:49 Red Blood Count 3.84 L, Mean Corpuscular Volume 90.1, Mean Corpuscular Hemoglobin 27.9, Mean Corpuscular Hemoglobin Concent 30.9 L, Red Cell Distrib ution Width 19.9 H, Lymphocytes # (Auto) , Calcium Level 8.3 L Justus Woods MD Nov 07, 2018 11:30
[2018-11-07 14:00] VITALS: BP 108/74
--- NOTE | 2018-11-07 14:05 | REP ---
CHEST X-RAY: Two views. HISTORY: Followup pneumocystis pneumonia. COMPARISON CHEST X-RAY: November 25, 2018. FINDINGS: A loop recorder is noted to the left of midline overlying the heart. An Lpowdd-X-Twbe catheter seen in place with its tip in the expected location of the superior vena cava. There has been slight blunting of the posterior pleural angles and the right lateral pleural angle consistent with small bilateral pleural effusions. There is diffuse interstitial lung disease again noted. No acute infiltrate is appreciated. Heart is not enlarged. Electronically Signed by Gamaliel Yan MD 11/07/2018 05:12 P
[2018-11-07 18:00] VITALS: BP 107/73
[2018-11-07] MEDS: METOPROLOL SUCC *XL* 12.5MG PER 1/2 TAB (TopROL *XL*) PO SCH (20:52)
[2018-11-07 22:00] VITALS: BP 130/80
--- NOTE | 2018-11-08 00:34 | IPN ---
DATE: 11/07/2018 Mr. Cabrera was last seen about a week ago. Since then, he is feeling better. His shortness of breath has decreased, his oxygen requirement has decreased from 8 liters to 4 liters, but still he feels very short winded with minimal exertion. He was frustrated because he could not eat his cereal and open the box without dyspnea on exertion. His cough has diminished. He has no nausea, vomiting or diarrhea. No abdominal pain. Voriconazole and atovaquone were both discontinued by Dr. Woods today. Temperature is 98.2, pulse 96, respirations 16, blood pressure 130/80, oxygen saturation (O2 sat) 96% on 4 liters nasal cannula. Heart: Normal S1, S2 with no murmurs. Lungs: A few crackles at the bases. Abdomen: Soft, nontender. No hepatosplenomegaly. Back: No costovertebral angle (CVA) tenderness. Extremities: Trace edema. LABORATORY DATA: White count is 1.6, hemoglobin 10.7, hematocrit 34.7, platelets 91. Sodium 137, potassium 3.8, chloride 88, bicarb 44, BUN 16, creatinine 0.5, glucose 101, calcium 8.3. Cryptococcus antigen was negative. Urine Histoplasma antigen was negative. Aspergillus galactomannan was negative 0.04 and Ixbi-D-Irmhiu was more than 500. MEDICATIONS: The patient has received 10 days of IV Bactrim at the beginning of the hospitalization and then atovaquone since 10/26/2018 currently day #12. The patient has finished a 22-day course of treatment for Pneumocystis pneumonia (PCP) with some improvement. IMPRESSION: 1. Presumptive Pneumocystis pneumonia with elevated Beta-1 3-D Glucan treated with a 22-day course of combination IV Bactrim followed by Mepron. Since the patient has finished the treatment, sputum cytology has been negative on two occasions. The concern is his Beta D-Glucan is still elevated. The patient will be switched to Bactrim for PCP prophylaxis at one tablet daily. 2. Respiratory failure. Oxygenation has improved, but the patient still desaturates on 4 liters nasal cannula, and he may benefit from respiratory rehab from pulmonary rehab, possibly acute rehab. He probably will need home oxygen. 3. History of lymphoma. Status post five cycles of R-CHOP. The patient now has worsening cytopenias. He was waiting for his fifth cycle, for his last cycle of R-CHOP. The pancytopenia could be related to the lymphoma rather than medication. PLAN: Agree with discontinuing voriconazole as all fungal antigens have been negative. Discontinue Mepron; the patient has finished a 22-day course of treatment for PCP. Will keep him on PCP prophylaxis as he will need his last cycle of chemotherapy. The case has been discussed with Dr. Woods who agrees with the plan. MTDD
[2018-11-08] MEDS: IPRATROPIUM 0.5MG/ALBUTEROL 2.5MG INH SOL UD 3ML (DUONEB)(J7620) NEB SCH ×6 (01:06→19:21)
[2018-11-08] MEDS: SLF 3 ML SYR IV SCH ×3 (05:24→20:24)
[2018-11-08 06:00] VITALS: BP 110/57
[2018-11-08 06:03] LABS: HEMATOCRIT 35.5 % (42.0-52.0); MEAN CORPUSCULAR HEMOGLOBIN 28.6 pg (27.0-33.0); MEAN CORPUSCULAR VOLUME 92.2 fl (80.0-96.0); PLATELET COUNT, AUTOMATED 104 10^3/uL (150-450); RED BLOOD COUNT 3.85 10^6/uL (4.30-6.10)
[2018-11-08 06:12] LABS: WHITE BLOOD COUNT 1.8 10^3/uL (4.0-10.0)
[2018-11-08 06:17] LABS: BLOOD UREA NITROGEN 15 MG/DL (7-18); CALCIUM LEVEL 8.5 MG/DL (8.8-10.2); CARBON DIOXIDE LEVEL 39 MEQ/L (21-32); CHLORIDE LEVEL 91 MEQ/L (98-107); CREATININE FOR GFR 0.61 MG/DL (0.70-1.30); GLOMERULAR FILTRATION RATE > 60.0 (>49); GLUCOSE, FASTING 103 MG/DL (70-100); POTASSIUM SERUM 4.1 MEQ/L (3.5-5.1); SODIUM LEVEL 132 MEQ/L (136-145)
[2018-11-08 06:32] LABS: ANISOCYTOSIS 2+; BASOPHILS 1 % (0-4); LYMPHOCYTES 4 % (16-52); METAMYELOCYTES 3 % (0-0); MONOCYTES 8 % (0-8); MYELOCYTES 1 % (0-0); NEUTROPHILS 82 % (35-75); PLATELET ESTIMATE DECREASED (NORMAL)
[2018-11-08] MEDS: BACTRIM 160MG/800MG DS TAB PO SCH (08:59)
[2018-11-08] MEDS: POTASSIUM CHLORIDE 10 MEQ SR TABLET PO SCH ×2 (08:59→20:19)
[2018-11-08] MEDS: TORSEMIDE 20 MG TAB PO SCH ×2 (08:59→16:58)
[2018-11-08] MEDS: predniSONE 5 MG TAB PO SCH (08:59)
[2018-11-08] MEDS: OMEPRAZOLE 20 MG CAP PO SCH (08:59)
[2018-11-08] MEDS: ENOXAPARIN 40 MG/0.4 ML SYRINGE (J1650) SC SCH (09:00)
[2018-11-08 10:00] VITALS: BP 108/74
--- NOTE | 2018-11-08 11:47 | DSES ---
DATE OF ADMISSION: 10/14/2018 DATE OF SNF: 11/08/2018 PRIMARY CARE PHYSICIAN: Dr. Justus Woods HISTORY: This is a 63-year-old male patient who presented to [facility] emergency room with worsening shortness of breath, fevers and chills. He had a pertinent medical history including lymphoma for which he had been undergoing chemotherapy. He was admitted to the hospital with acute respiratory distress, concern for hospital acquired pneumonia and sepsis, and acute on chronic congestive heart failure (CHF). During his hospitalization, he was seen by pulmonology, infectious disease, as well as nephrology. The patient was seen initially in consultation by infectious disease as there was a concern that the patient had pneumocystic pneumonia, less likely aspergillus, galactomannan is negative, did not have any cavitary pneumonia. He was started on IV Bactrim for pneumocystic pneumonia. Sputum induction was sent for cytology to rule out pneumocystis. The patient is to continue on IV Solu-Medrol or prednisone for 21 days for hypoxia associated with PCP. If the patient continues to worsen, it was recommended by infectious disease to continue bronchoscopy or bronchoalveolar lavage by pulmonary. The patient's respiratory status failed to improve remarkably and pulmonary was consulted on October 21 who noted the patient had hypoxia with an abnormal chest CT scan with concern for a fungal infection, recognizing that the patient is being treated for pneumocystic pneumonia. He was noted to have Klebsiella on sputum culture, however was treated for six days with Zosyn. At time of initial consultation, given the patient's respiratory compromise, pulmonary did not feel bronchoscopy was necessary. The patient was continued on IV Bactrim, although after 13 days of therapy made minimal improvement. Cryptococcus histoplasma antigen was obtained. Repeat beta-1,3-D-glucan was sent. The patient was also started on atovaquone on October 26. He has therefore, at this time, completed a 22 day course of treatment for pneumocystic pneumonia. Cultures have not revealed any antifungal and therefore his voriconazole has been discontinued. The patient did develop hyponatremia. This was felt to be likely secondary to high dose Bactrim and Lasix being given simultaneously. Lasix had been held. The Bactrim was subsequently switched to atovaquone. The patient did have improvement in his sodium levels and improvement in his mental status. The patient's respiratory failure has shown some improvement. He has been able to decrease his oxygen demands. He is at 4 liters nasal cannula although he continues to complain of significant dyspnea on exertion, easily fatigued. There likely has been a fair amount of damage done to the lungs as a result of the pneumonia and the patient is aware of that. 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 He understands that he may in time have very minimal improvement. He is agreeable for placement to short term rehab. He has been treated for acute on chronic diastolic congestive heart failure. He has subsequently been transitioned from IV Lasix to torsemide 20 mg twice daily. His renal function and fluid status have remained stable at this time. The patient has had pancytopenia. His platelets are recovering. His white blood cell count was 16 yesterday, is up to 18 today. This likely could be a side effect of the atovaquone which has since been discontinued after completion of course of treatment for pneumocystic pneumonia. He does have large B cell lymphoma. He has completed four of five cycles of chemotherapy. He was scheduled for his final chemo on October 21, although this has not been completed secondary to his hospitalization and he will need outpatient follow-up for this. His hyponatremia was treated as syndrome of inappropriate secretion of antidiuretic hormone (SIADH). His sodium has now improved. He is asymptomatic. The patient also has a history of paroxysmal atrial fibrillation. He is rate controlled with beta-braden. DISCHARGE DIAGNOSES: Include: 1. Acute respiratory failure with hypoxemia. 2. Presumptive pneumocystic pneumonia with elevated beta-1,3-D-glucan. 3. Acute on chronic diastolic congestive heart failure (CHF). 4. Hyponatremia. 5. Hypokalemia. 6. Pancytopenia. 7. Large B cell lymphoma. 8. Paroxysmal atrial fibrillation. Discharge medications and plan will be dictated at time of discharge from the hospital.
[2018-11-08 14:00] VITALS: BP 112/78
[2018-11-08 18:00] VITALS: BP 119/89
--- NOTE | 2018-11-08 18:19 | IPNPDOC ---
Text Note Date of Service The patient was seen on 11/08/18. NOTE Mr. Cabrera was seen on bedside rounds this afternoon, he is unfortunately still a bit SOB even on rest. He is still on 4 L NC O2. Cough is better however, no n/v or diarrhea, no chest pain or palpitations. Physical exam: VS see below General: 63 yo male appears a bit uncomfortable from SOB, some conversational dyspnea, cannot speak comfortably in many full sentences HEENT: EOMI, moist mucus membranes, no JVD Cardiac: normal s1 and s2, no murmurs, rubs or gallops Resp: no wheezing, rales or rhonchi, cta b/l Abdomen: no hepatosplenomegaly or masses appreciated, no pain to palpation, no distension, nabsx4, no rebound ridgity or guarding Extremities: no cyanosis mottling or edema appreciated Cryptococcus antigen was negative. Urine Histoplasma antigen was negative. Aspergillus galactomannan was negative 0.04 and Gqvp-V-Smelrt was more than 500. IMPRESSION: 1. Presumptive Pneumocystis pneumonia with elevated Beta-1 3-D Glucan treated with a 22-day course of combination IV Bactrim followed by Mepron. -We have no changes to his current plan for now, discharge is planned for the morning, he is going to rehab. Since the patient has finished the treatment, sputum cytology has been negative on two occasions. He should continue on Bactrip for PCP prophylaxis one tablet PO daily. He is s/p voriconazole, fungal antigens have been negative, s/p mepron, he finished 22 day course of tx for PCP. 2. Respiratory failure. -O2 status is stable but he is on 4 L NC O2, he is normally not on O2 at home, he may benefit from bronchoscope and BAL in future. He will benefit from pulmonary rehab and home O2. 3. History of lymphoma. Status post five cycles of R-CHOP. The patient now has worsening cytopenias. He was waiting for his fifth cycle, for his last cycle of R-CHOP. The pancytopenia could be related to the lymphoma rather than medication. VS,Fishbone, I+O VS, Fishbone, I+O Laboratory Tests 11/08/18 05:43 Red Blood Count 3.85 L, Mean Corpuscular Volume 92.2, Mean Corpuscular Hemoglobin 28.6, Mean Corpuscular Hemoglobin Concent 31.0 L, Red Cell Distribution Width 20.0 H, Lymphocytes # (Auto) , Calcium Level 8.5 L Vital Signs Date Time Temp Pulse Resp B/P (MAP) Pulse Ox O2 Delivery O2 Flow Rate FiO2 11/08/18 14:00 97.5 108 16 112/78 (89) 96 4.0 11/06/18 07:45 Nasal Cannula I&O- Last 24 Hours up to 6 AM 11/08/18 06:00 Intake Total 1070 ml Output Total 1500 ml Balance -430 ml GME ATTESTATION GME ATTESTATION My faculty preceptor for this patient encounter was physically present during the encounter and was fully available. All aspects of the patient interview, examination, medical decision making process, and medical care plan development were reviewed and approved by the faculty preceptor. The faculty preceptor is aware and concurs with the plan as stated in the body of this note and will attest to such by his/her cosignature. NORMA ROSALES DO Nov 08, 2018 18:19
[2018-11-08] MEDS: METOPROLOL SUCC *XL* 12.5MG PER 1/2 TAB (TopROL *XL*) PO SCH (20:20)
[2018-11-08] MEDS: ATOVAQUONE SUSP 750MG/5ML 210 ML BTL PO SCH (21:54)
[2018-11-08 22:00] VITALS: BP 114/79
[2018-11-08 22:34] VITALS: O2SAT 93
[2018-11-09] MEDS: IPRATROPIUM 0.5MG/ALBUTEROL 2.5MG INH SOL UD 3ML (DUONEB)(J7620) NEB SCH ×4 (01:43→20:18)
[2018-11-09 02:00] VITALS: BP 127/84
[2018-11-09] MEDS: SLF 3 ML SYR IV SCH ×2 (05:19→14:00)
[2018-11-09 06:00] VITALS: BP 120/81
[2018-11-09 06:26] LABS: HEMATOCRIT 35.6 % (42.0-52.0); MEAN CORPUSCULAR HEMOGLOBIN 27.7 pg (27.0-33.0); MEAN CORPUSCULAR HGB CONC 30.9 g/dl (32.0-36.5); MEAN CORPUSCULAR VOLUME 89.7 fl (80.0-96.0); PLATELET COUNT, AUTOMATED 146 10^3/uL (150-450); RED BLOOD COUNT 3.97 10^6/uL (4.30-6.10)
[2018-11-09 06:29] LABS: WHITE BLOOD COUNT 1.9 10^3/uL (4.0-10.0)
[2018-11-09 07:15] LABS: LYMPHOCYTES 15 % (16-52); METAMYELOCYTES 3 % (0-0); MONOCYTES 5 % (0-8); MYELOCYTES 3 % (0-0); NEUTROPHILS 68 % (35-75)
[2018-11-09 07:16] LABS: PLATELET ESTIMATE DECREASED (NORMAL)
[2018-11-09 07:17] LABS: MICROCYTOSIS 1+
[2018-11-09 07:18] LABS: ANISOCYTOSIS 1+
[2018-11-09] MEDS: predniSONE 5 MG TAB PO SCH (08:23)
[2018-11-09] MEDS: TORSEMIDE 20 MG TAB PO SCH ×2 (08:23→17:24)
[2018-11-09] MEDS: ENOXAPARIN 40 MG/0.4 ML SYRINGE (J1650) SC SCH (08:23)
[2018-11-09] MEDS: BACTRIM 160MG/800MG DS TAB PO SCH (08:23)
[2018-11-09] MEDS: OMEPRAZOLE 20 MG CAP PO SCH (08:24)
[2018-11-09] MEDS: POTASSIUM CHLORIDE 10 MEQ SR TABLET PO SCH ×2 (08:24→20:14)
[2018-11-09 09:00] VITALS: O2SAT 91
[2018-11-09 10:00] VITALS: BP 129/90
[2018-11-09] MEDS: ATOVAQUONE SUSP 750MG/5ML 210 ML BTL PO SCH (10:21)
[2018-11-09] MEDS: METOPROLOL SUCC *XL* 12.5MG PER 1/2 TAB (TopROL *XL*) PO SCH (20:15)
[2018-11-09 22:37] VITALS: O2SAT 94
[2018-11-10] MEDS: IPRATROPIUM 0.5MG/ALBUTEROL 2.5MG INH SOL UD 3ML (DUONEB)(J7620) NEB SCH ×4 (01:48→20:12)
[2018-11-10 05:53] LABS: HEMATOCRIT 32.9 % (42.0-52.0); HEMOGLOBIN 10.6 g/dl (13.5-17.5); MEAN CORPUSCULAR HEMOGLOBIN 28.6 pg (27.0-33.0); MEAN CORPUSCULAR HGB CONC 32.2 g/dl (32.0-36.5); MEAN CORPUSCULAR VOLUME 88.7 fl (80.0-96.0); RED BLOOD COUNT 3.71 10^6/uL (4.30-6.10)
[2018-11-10 06:00] VITALS: BP 105/56
[2018-11-10 06:29] LABS: WHITE BLOOD COUNT 1.8 10^3/uL (4.0-10.0)
[2018-11-10 06:36] LABS: EOSINOPHILS 1 % (0-5); LYMPHOCYTES 12 % (16-52); METAMYELOCYTES 5 % (0-0); MONOCYTES 8 % (0-8); MYELOCYTES 5 % (0-0); NEUTROPHILS 64 % (35-75)
[2018-11-10 06:37] LABS: ANISOCYTOSIS 2+; HYPOCHROMASIA 1+; PLATELET ESTIMATE INVALID (NORMAL)
[2018-11-10 06:38] LABS: PLATELET CLUMPS MODERATE AMT
[2018-11-10 08:43] LABS: PLTBLUE- EDTA FREE CALC 122 K/mm3 (172-450)
[2018-11-10 08:56] LABS: PLTBLUE- EDTA FREE MACHINE 111 10^3/uL (172-450)
[2018-11-10] MEDS: TORSEMIDE 20 MG TAB PO SCH ×2 (09:13→17:19)
[2018-11-10] MEDS: ENOXAPARIN 40 MG/0.4 ML SYRINGE (J1650) SC SCH (09:13)
[2018-11-10] MEDS: OMEPRAZOLE 20 MG CAP PO SCH (09:13)
[2018-11-10] MEDS: predniSONE 5 MG TAB PO SCH (09:13)
[2018-11-10] MEDS: POTASSIUM CHLORIDE 10 MEQ SR TABLET PO SCH ×2 (09:14→20:30)
[2018-11-10] MEDS: BACTRIM 160MG/800MG DS TAB PO SCH (09:14)
[2018-11-10 20:30] VITALS: O2SAT 95
[2018-11-10] MEDS: METOPROLOL SUCC *XL* 12.5MG PER 1/2 TAB (TopROL *XL*) PO SCH (20:47)
[2018-11-11 01:00] VITALS: O2SAT 98
[2018-11-11] MEDS: IPRATROPIUM 0.5MG/ALBUTEROL 2.5MG INH SOL UD 3ML (DUONEB)(J7620) NEB SCH ×4 (02:08→20:00)
[2018-11-11 03:04] VITALS: O2SAT 100
[2018-11-11 05:27] VITALS: O2SAT 100
[2018-11-11 05:51] LABS: HEMATOCRIT 35.1 % (42.0-52.0); HEMOGLOBIN 11.2 g/dl (13.5-17.5); MEAN CORPUSCULAR HEMOGLOBIN 28.4 pg (27.0-33.0); MEAN CORPUSCULAR HGB CONC 31.9 g/dl (32.0-36.5); MEAN CORPUSCULAR VOLUME 89.1 fl (80.0-96.0); PLATELET COUNT, AUTOMATED 174 10^3/uL (150-450); RED BLOOD COUNT 3.94 10^6/uL (4.30-6.10); WHITE BLOOD COUNT 2.9 10^3/uL (4.0-10.0)
[2018-11-11 06:24] LABS: EOSINOPHILS 1 % (0-5); LYMPHOCYTES 7 % (16-52); METAMYELOCYTES 1 % (0-0); MONOCYTES 6 % (0-8); MYELOCYTES 4 % (0-0); NEUTROPHILS 80 % (35-75)
[2018-11-11 06:25] LABS: ANISOCYTOSIS 1+; HYPOCHROMASIA 1+; PLATELET ESTIMATE NORMAL (NORMAL)
[2018-11-11] MEDS: TORSEMIDE 20 MG TAB PO SCH ×2 (10:42→17:03)
[2018-11-11] MEDS: predniSONE 5 MG TAB PO SCH (10:42)
[2018-11-11] MEDS: BACTRIM 160MG/800MG DS TAB PO SCH (10:42)
[2018-11-11] MEDS: OMEPRAZOLE 20 MG CAP PO SCH (10:42)
[2018-11-11] MEDS: POTASSIUM CHLORIDE 10 MEQ SR TABLET PO SCH ×2 (10:42→21:00)
[2018-11-11] MEDS: ENOXAPARIN 40 MG/0.4 ML SYRINGE (J1650) SC SCH (10:43)
[2018-11-11 15:30] VITALS: O2SAT 100
[2018-11-11] MEDS: METOPROLOL SUCC *XL* 12.5MG PER 1/2 TAB (TopROL *XL*) PO SCH (21:29)
[2018-11-12] MEDS: IPRATROPIUM 0.5MG/ALBUTEROL 2.5MG INH SOL UD 3ML (DUONEB)(J7620) NEB SCH ×4 (02:54→20:21)
[2018-11-12 07:23] LABS: HEMATOCRIT 35.1 % (42.0-52.0); MEAN CORPUSCULAR HEMOGLOBIN 27.8 pg (27.0-33.0); MEAN CORPUSCULAR HGB CONC 31.3 g/dl (32.0-36.5); MEAN CORPUSCULAR VOLUME 88.9 fl (80.0-96.0); PLATELET COUNT, AUTOMATED 174 10^3/uL (150-450); RED BLOOD COUNT 3.95 10^6/uL (4.30-6.10); WHITE BLOOD COUNT 2.7 10^3/uL (4.0-10.0)
[2018-11-12 08:19] LABS: EOSINOPHILS 2 % (0-5); LYMPHOCYTES 4 % (16-52); METAMYELOCYTES 3 % (0-0); MONOCYTES 20 % (0-8); MYELOCYTES 1 % (0-0); NEUTROPHILS 66 % (35-75); PLATELET ESTIMATE NORMAL (NORMAL)
[2018-11-12 08:20] LABS: ANISOCYTOSIS 2+; OVALOCYTES 1+; POIKILOCYTOSIS 1+
[2018-11-12 09:00] VITALS: BP 110/80
[2018-11-12] MEDS: POTASSIUM CHLORIDE 10 MEQ SR TABLET PO SCH ×2 (09:45→21:00)
[2018-11-12] MEDS: predniSONE 5 MG TAB PO SCH (09:45)
[2018-11-12] MEDS: TORSEMIDE 20 MG TAB PO SCH ×2 (09:45→16:46)
[2018-11-12] MEDS: ENOXAPARIN 40 MG/0.4 ML SYRINGE (J1650) SC SCH (09:46)
[2018-11-12] MEDS: BACTRIM 160MG/800MG DS TAB PO SCH (09:46)
[2018-11-12] MEDS: OMEPRAZOLE 20 MG CAP PO SCH (09:46)
[2018-11-12] MEDS: METOPROLOL SUCC *XL* 12.5MG PER 1/2 TAB (TopROL *XL*) PO SCH (21:33)
[2018-11-13] MEDS: IPRATROPIUM 0.5MG/ALBUTEROL 2.5MG INH SOL UD 3ML (DUONEB)(J7620) NEB SCH ×4 (02:43→21:13)
[2018-11-13 06:00] VITALS: BP 122/73
[2018-11-13 06:29] LABS: HEMATOCRIT 32.5 % (42.0-52.0); HEMOGLOBIN 10.3 g/dl (13.5-17.5); MEAN CORPUSCULAR HEMOGLOBIN 28.1 pg (27.0-33.0); MEAN CORPUSCULAR HGB CONC 31.7 g/dl (32.0-36.5); MEAN CORPUSCULAR VOLUME 88.8 fl (80.0-96.0); PLATELET COUNT, AUTOMATED 169 10^3/uL (150-450); RED BLOOD COUNT 3.66 10^6/uL (4.30-6.10); WHITE BLOOD COUNT 2.3 10^3/uL (4.0-10.0)
[2018-11-13 06:48] LABS: ANISOCYTOSIS 1+; EOSINOPHILS 2 % (0-5); LYMPHOCYTES 26 % (16-52); METAMYELOCYTES 3 % (0-0); MYELOCYTES 1 % (0-0); NEUTROPHILS 62 % (35-75); PLATELET ESTIMATE NORMAL (NORMAL)
[2018-11-13] MEDS: ENOXAPARIN 40 MG/0.4 ML SYRINGE (J1650) SC SCH (09:39)
[2018-11-13] MEDS: TORSEMIDE 20 MG TAB PO SCH ×2 (09:39→17:01)
[2018-11-13] MEDS: BACTRIM 160MG/800MG DS TAB PO SCH (09:39)
[2018-11-13] MEDS: OMEPRAZOLE 20 MG CAP PO SCH (09:40)
[2018-11-13] MEDS: predniSONE 5 MG TAB PO SCH (09:40)
[2018-11-13] MEDS: POTASSIUM CHLORIDE 10 MEQ SR TABLET PO SCH ×2 (09:40→21:00)
[2018-11-13] MEDS: METOPROLOL SUCC *XL* 12.5MG PER 1/2 TAB (TopROL *XL*) PO SCH (21:16)
[2018-11-14] MEDS: IPRATROPIUM 0.5MG/ALBUTEROL 2.5MG INH SOL UD 3ML (DUONEB)(J7620) NEB SCH ×4 (01:22→20:02)
[2018-11-14 06:00] VITALS: BP 135/53
[2018-11-14 06:07] LABS: HEMATOCRIT 34.7 % (42.0-52.0); HEMOGLOBIN 10.6 g/dl (13.5-17.5); MEAN CORPUSCULAR HEMOGLOBIN 27.6 pg (27.0-33.0); MEAN CORPUSCULAR HGB CONC 30.5 g/dl (32.0-36.5); MEAN CORPUSCULAR VOLUME 90.4 fl (80.0-96.0); PLATELET COUNT, AUTOMATED 181 10^3/uL (150-450); RED BLOOD COUNT 3.84 10^6/uL (4.30-6.10); WHITE BLOOD COUNT 2.3 10^3/uL (4.0-10.0)
[2018-11-14 06:49] LABS: ANISOCYTOSIS 2+; BASOPHILS 2 % (0-4); EOSINOPHILS 1 % (0-5); LYMPHOCYTES 5 % (16-52); METAMYELOCYTES 3 % (0-0); MONOCYTES 19 % (0-8); MYELOCYTES 4 % (0-0); NEUTROPHILS 65 % (35-75); PLATELET ESTIMATE NORMAL (NORMAL)
--- NOTE | 2018-11-14 09:00 | IPNPDOC ---
Subjective Date Seen The patient was seen on 11/14/18. Subjective Chief Complaint/HPI hypoxia Events since last encounter COntinues to progress. Patient states he plans on going home with oxygen at home. denies c/o today Constitutional: Denies: Chills, Fever, Night Sweats Pulmonary: Reports: Dyspnea (chronic); Denies: Cough Cardiovascular: Denies: Chest Pain, Palpitations, Orthopnea, Paroxysmal Noc. Dyspnea, Lt Headedness Objective Physical Examination General Exam: Positive: Alert, Cooperative, No Acute Distress Neck Exam: Negative: thyromegaly Chest Exam: Positive: Diminished (diffusely diminished with reduced air movement.), Other; Negative: Clear to auscultation, Rales, Rhonchi, Wheezing Heart Exam: Positive: Rate Normal, Regular Rhythm, Normal S1, Normal S2; Negative: Tachycardic, Irregular Rhythm Abdomen Exam: Positive: Normal bowel sounds, Soft; Negative: Tenderness Male Exam: Negative: Edema Extremity Exam: Negative: Edema Skin Exam: Positive: Nl turgor and temperature, Other skin issue (scattered small ecchymoses) Neuro Exam: Positive: Normal Speech Psych Exam: Positive: Mood NL, Oriented x 3 Assessment /Plan Problems (1) Acute respiratory failure with hypoxemia Status: Acute Response to Treatment: Stable, Improving Discussed With: Nurse, Patient Problem Specific Plan: Monitor Clinically, Repeat Labs Problem Text: 11/14/18: plan unchanged. will review DC disposition with PT and PFS 11/07/18: still at 4L with rest. improving very slowly. For PCP Not so clear that he needs 21 days of atovaquone. He has had 21+days of sxt/tmp plus atovaquone. Will request f/u opinion from Dr. Yu on this point. Also no evidence to show ongoing need for Voriconazole since sputum micro and blood/urine tests are negat henny for fungi. Will order f/u xray. 11/06 -- Patient is receiving 4L NC at rest, more with activity. 11/05 -- oxygen needs are consistent 11/04 -- slowly decreasing oxygenation needs. Atovaquone day # 02/20 11/03 transfer to the floor today. Await input from ARU, if candidate medically ready for transfer, if not, plan for transition to [facility] until STR bed available. 11/02/18: Patient continues to work with PT. ARU rehab consult placed today. He remains on O2 3L n/c at rest. He continues to desat with ambulation. Sputum cx pending. He remains on Atovaquone D#12/21 and on Vorconazole D#10 11/01 - Very slow progress. PT will continue to work on teaching purs lipped breathing and raise oxygen to 6 liters while ambulating for now Remains on Atovaquone D#11/20 for presumptive PCP, On Vorconazole for possible fungal pneumonia (Sputum fungal cultures pending - if negative, would de/c Vorcon especially considering negative serologies and galactomannan Still on Prednisone 10/31/18: mild improvement. continues to require oxygen and desaturates with mild exertion. Continue with diuresis and monitor symptoms. 10/30: Doing better clinically. Still on 4L via nasal cannula, but if he moves he doesn't drop quite as fast or for quite as long. 10/28: subjectively improving. on voriconazole and atovaquone. 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 CXR looks a bit better. 10/25: voriconazole added yesterday to Multaq stopped; sxt/tmp dose optimized to 20mg/kg 10/24: ct done today. report says similar but slightly better to previous ct. await Dr. Cruz opinion about the study. 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 Plan CT tomorrow and possible bronch. He has told me that he is not enthusiastic about potentially being on a ventilator, but accepts that risk. 10/21 -- patient remains on Bactrim. If not improved by Wednesday, which is looking likely, plan bronchoscopy. Oxygen demands remain high, and patient is desatting with minimal exertion. Patient voices desire for full code status. D7 empiric Bactrim for PJP, s/p Zosyn x 6 days - stoppped by ID 10/20 Pulmonary consult pending due to severe hypoxemia with minimal exertion Unable to give sputum for Culture (No productive sputum) 10/19/18: s/p ID consult. Duonebs added q 6 hrs. DC solu-medrol. Start Prednisone 60 mg po bid. 10/18/18: repeat bl cxs and fungal smear remain pending. Patient continues with dyspnea. CT Chest competed and demonstrates improvement. see report below. 10/17/18 fungal smear/culture and DFA staining obtained (ordered 10/15!) 10/17 CT chest: The diffuse bilateral interstitial and alveolar infiltrates identified on 09/23/2018 have decreased. The bilateral pleural effusions have decreased. The extensive mediastinal lymph node enlargement identified on 05/19/2089, has resolved. 10/17/18: patient states he feels significantly better. Continues to require 5 LNC. HOLD on diuresing due to soft BP. HR remains stable. Bl cx and sputum cx pending. 10/16: LDH elevated above baseline elevation from lymphoma which can be seen c PJP. Sulfa/TMP started yesterday. Hypoxic with minimal exertion. Diuresis has diminished since change to po lasix. will repeat BNP, may need IV lasix again. 09/28/18 Fungitell >500-Ddx: PJP, Lise spp, Aspergillus less likely given 09/24 A flavus/fumigatus, niger Ab -/galacto Ag - (2) Acute on chronic diastolic (congestive) heart failure Status: Chronic Response to Treatment: Stable Problem Specific Plan: Monitor Clinically Problem Text: 11/07: nephrology has signed off for now. will stop NaCl tabs for now also, continue to monitor Na levels 11/02/18: Appears well compensated. Remains on Torsemide 20 mg po bid 11/01 - Now on Torsemide 20 BID per nephrology 10/30: He is being carefully diuresed by the Nephro team. Will defer to them for further management. hdfffffffffffffff ffffffffffffffffffffffffffffffffffffffffffffffffffffffffffffffffffffffffffffffffffffffffffffffffffff ffffffffffffffffffffffffffffffffffffffffffffffffffffffffffffffffffffffffffffffffffffffffffffffffffff ffffffffffffffffffffffffffffffffffffffffffffffffffffffffffffffffffffffffffffffffffffffffffffffffffff ffffffffffffffffffffffffffffffffffffffffffffffffffffffffffffffffffffffffffffffffffffffffffffffffffff ffffffffffffffffffffffffffffffffffffffffffffffffffffffffffffffffffffffffffffffffffffffffffffffffffff ffffffffffffffffffffffffffffffffffffffffffffffffffffffffffffffffffffffffffffffffffffffffffffffffffff ffffffffffffffffffffffffffffffffffffffffffffffffffffffffffffffffffffffffffffffffffffffffffffffffffff ffffffffffffffffffffffffffffffffffffffffffffffffffffffffffffffffffffffffffffffffffffffffffffffffffff ffffffffffffffffffffffffffffffffffffffffffffffffffffffffffffffffffffffffffffffffffffffffffffffffffff ffffffffffffffffffffffffffffffffffffffffffffffffffffffffffffffffffffffffffffffffffffffffffffffffffff ffffffffffffffffffffffffffffffffffffffffffffffffffffffffffffffffffffffffffffffffffffffffffffffffffff ffffffffffffffffffffffffffffffffffffffffffffffffffffffffffffffffffffffffffffffffffffffffffffffffffff ffffffffffffffffffffffffffffffffffffffffffffffffffffffffffffffffffffffffffffffffffffffffffffffffffff ffffffffffffffffffffffffffffffffffffffffffffffffffffffffffffffffffffffffffffffffffffffffffffffffffff ffffffffffffffffffffffffffffffffffffffffffffffffffffffffffffffffffffffffffffffffffffffffffffffffffff ffffffffffffffffffffffffffffffffffffffffffffffffffffffffffffffffffffffffffffffffffffffffffffffffffff ffffffffffffffffffffffffffffffffffffffffffffffffffffffffffffffffffffffffffffffffffffffffffffffffffff ffffffffffffffffffffffffffffffffffffffffffffffffffffffffffffffffffffffffffffffffffffffffffffffffffff ffffffffffffffffffffffffffffffffffffffffffffffffffffffffffffffffffffffffffffffffffffffffffffffffffff ffffffffffffffffffffffffffffffffffffffffffffffffffffffffffffffffffffffffffffffffffffffffffffffffffff ffffffffffffffffffffffffffffffffffffffffffffffffffffffffffffffffffffffffffffffffffffffffffffffffffff ffffffffffffffffffffffffffffffffffffffffffffffffffffffffffffffffffffffffffffffffffffffffffffffffffff ffffffffffffffffffffffffffffffffffffffffffffffffffffffffffffffffffffffffffffffffffffffffffffffffffff ffffffffffffffffffffffffffffffffffffffffffffffffffffffffffffffffffffffffffffffffffffffffffffffffffff ffffffffffffffffffffffffffffffffffffffffffffffffffffffffffffffffffffffffffffffffffffffffffffffffffff ffffffffffffffffffffffffffffffffffffffffffffffffffffffffffffffffffffffffffffffffffffffffffffffffffff ffffffffffffffffffffffffffffffffffffffffffffffffffffffffffffffffffffffffffffffffffffffffffffffffffff ffffffffffffffffffffffffffffffffffffffffffffffffffffffffffffffffffffffffffffffffffffffffffffffffffff ffffffffffffffffffffffffffffffffffffffffffffffffffffffffffffffffffffffffffffffffffffffffffffffffffff ffffffffffffffffffffffffffffffffffffffffffffffffffffffffffffffffffffffffffffffffffffffffffffffffffff ffffffffffffffffffffffffffffffffffffffffffffffffffffffffffffffffffffffffffffffffffffffffffffffffffff ffffffffffffffffffffffffffffffffffffffffffffffffffffffffffffffffffffffffffffffffffffffffffffffffffff ffffffffffffffffffffffffffffffffffffffffffffffffffffffffffffffffffffffffffffffffffffffffffffffffffff ffffffffffffffffffffffffffffffffffffffffffffffffffffffffffffffffffffffffffffffffffffffffffffffffffff ffffffffffffffffffffffffffffffffffffffffffffffffffffffffffffffffffffffffffffffffffffffffffffffffffff ffffffffffffffffffffffffffffffffffffffffffffffffffffffffffffffffffffffffffffffffffffffffffffffffffff ffffffffffffffffffffffffffffffffffffffffffffffffffffffffffffffffffffffffffffffffffffffffffffffffffff ffffffffffffffffffffffffffffffffffffffffffffffffffffffffffffffffffffffffffffffffffffffffffffffffffff ffffffffffffffffffffffffffffffffffffffffffffffffffffffffffffffffffffffffffffffffffffffffffffffffffff ffffffffffffffffffffffffffffffffffffffffffffffffffffffffffffffffffffffffffffffffffffffffffffffffffff ffffffffffffffffffffffffffffffffffffffffffffffffffffffffffffffffffffffffffffffffffffffffffffffffffff ffffffffffffffffffffffffffffffffffffffffffffffffffffffffffffffffffffffffffffffffffffffffffffffffffff ffffffffffffffffffffffffffffffffffffffffffffffffffffffffffffffffffffffffffffffffffffffffffffffffffff ffffffffffffffffffffffffffffffffffffffffffffffffffffffffffffffffffffffffffffffffffffffffffffffffffff ffffffffffffffffffffffffffffffffffffffffffffffffffffffffffffffffffffffffffffffffffffffffffffffffffff ffffffffffffffffffffffffffffffffffffffffffffffffffffffffffffffffffffffffffffffffffffffffffffffffffff ffffffffffffffffffffffffffffffffffffffffffffffffffffffffffffffffffffffffffffffffffffffffffffffffffff ffffffffffffffffffffffffffffffffffffffffffffffffffffffffffffffffffffffffffffffffffffffffffffffffffff ffffffffffffffffffffffffffffffffffffffffffffffffffffffffffffffffffffffffffffffffffffffffffffffffffff ffffffffffffffffffffffffffffffffffffffffffffffffffffffffffffffffffffffffffffffffffffffffffffffffffff ffffffffffffffffffffffffffffffffffffffffffffffffffffffffffffffffffffffffffffffffffffffffffffffffffff ffffffffffffffffffffffffffffffffffffffffffffffffffffffffffffffffffffffffffffffffffffffffffffffffffff ffffffffffffffffffffffffffffffffffffffffffffffffffffffffffffffffffffffffffffffffffffffffffffffffffff ffffffffffffffffffffffffffffffffffffffffffffffffffffffffffffffffffffffffffffffffffffffffffffffffffff ffffffffffffffffffffffffffffffffffffffffffffffffffffffffffffffffffffffffffffffffffffffffffffffffffff ffffffffffffffffffffffffffffffffffffffffffffffffffffffffffffffffffffffffffffffffffffffffffffffffffff ffffffffffffffffffffffffffffffffffffffffffffffffffffffffffffffffffffffffffffffffffffffffffffffffffff ffffffffffffffffffffffffffffffffffffffffffffffffffffffffffffffffffffffffffffffffffffffffffffffffffff ffffffffffffffffffffffffffffffffffffffffffffffffffffffffffffffffffffffffffffffffffffffffffffffffffff ffffffffffffffffffffffffffffffffffffffffffffffffffffffffffffffffffffffffffffffffffffffffffffffffffff ffffffffffffffffffffffffffffffffffffffffffffffffffffffffffffffffffffffffffffffffffffffffffffffffffff ffffffffffffffffffffffffffffffffffffffffffffffffffffffffffffffffffffffffffffffffffffffffffffffffffff ffffffffffffffffffffffffffffffffffffffffffffffffffffffffffffffffffffffffffffffffffffffffffffffffffff ffffffffffffffffffffffffffffffffffffffffffffffffffffffffffffffffffffffffffffffffffffffffffffffffffff ffffffffffffffffffffffffffffffffffffffffffffffffffffffffffffffffffffffffffffffffffffffffffffffffffff ffffffffffffffffffffffffffffffffffffffffffffffffffffffffffffffffffffffffffffffffffffffffffffffffffff ffffffffffffffffffffffffffffffffffffffffffffffffffffffffffffffffffffffffffffffffffffffffffffffffffff ffffffffffffffffffffffffffffffffffffffffffffffffffffffffffffffffffffffffffffffffffffffffffffffffffff ffffffffffffffffffffffffffffffffffffffffffffffffffffffffffffffffffffffffffffffffffffffffffffffffffff ffffffffffffffffffffffffffffffffffffffffffffffffffffffffffffffffffffffffffffffffffffffffffffffffffff ffffffffffffffffffffffffffffffffffffffffffffffffffffffffffffffffffffffffffffffffffffffffffffffffffff ffffffffffffffffffffffffffffffffffffffffffffffffffffffffffffffffffffffffffffffffffffffffffffffffffff ffffffffffffffffffffffffffffffffffffffffffffffffffffffffffffffffffffffffffffffffffffffffffffffffffff ffffffffffffffffffffffffffffffffffffffffffffffffffffffffffffffffffffffffffffffffffffffffffffffffffff fffffffffffffffffffffffffffffffffffffffffffffffffffffffffff 10/28: no lasix for now. 10/27: due to rapidly worsening hyponatremia, furosemide has been held. 10/26: lasix increased to 60 bid overnight, Dr. Cruz ordered 100mg IV lasix dose this am. 10/23 -- albumin and pro-BNP ordered for tomorrow; renal function has remained stable, though there is some concern that his malaise today may indicate overdiuresis. 10/22 -- I&Os show patient consistently net negative. 10/21 - Getting Lasix 40 BID with fair diuresis per I + Os BP stable 10/17/18: HOLD on diuresing due to soft BP. HR remains stable. 10/16: CXR looks a little wetter, BNP pending; may need increase laxix CXR in am, continue lasix for now. Last ECHO 09/18 with nl EF< Gr 1 diastolic dysfunction. Cont with Lasix IV, change diet to low sodium. Monitor I & Os. (3) Pancytopenia Status: Chronic Response to Treatment: Stable Problem Text: 11/07: platelets up a little today but WBC down to 1.6 K. At this point believed to be side effect of atovaquone, held since yesterday. 11/06 -- he has previously been pancytopenic, though that was felt to be related to his chemotherapy. At this point, I suspect that this may be secondary to atovaquone. Infectious disease is not air traffic control specialist center today, but will be tomorrow. He has previously been intolerant of Bactrim. I'm holding atovaquone at the moment, pending a conversation with ID tomorrow. If ID feels that this is likely not the cause of his pancytopenia, may require further discussion with heme/onc. (4) Large B-cell lymphoma Status: Acute Problem Specific Plan: Monitor Clinically Problem Text: 10/16: may need to be rescheduled depending. Follows with [facility] as outpt, scheduled for final chemo 10/21. (5) Hyponatremia Status: Resolved Response to Treatment: Stable, Improving Problem Text: 11/03 Na 140, monitor. 11/02/18: Slow improvement, Na+ 135 11/01 - Treated as SIADH - improving with diuretics - now on Torsemide as above 10/31/18: continues to improve 10/30: His sodium has improved well with Nephro's help. Appreciate the help. 10/28: hypertonic saline infusion stopped for now but sodium slightly lower than it had been. being managed by Dr Pedro. 10/27: after IV lasix yesterday, repeat sodium showed quick drop to 120 accompanied by DORMITORY COUNSELOR symptoms of diplopia and confusion and hallucinations. Dr. Miri Pedro consulted and patient moved to ICU to administer 3% NS, being given through port. DORMITORY COUNSELOR symptoms have resolved although weakness remains. and 10/26: sodium down to 124 today. will restrict hypotonic fluids, K now normal. possible side effect of SXT/TMP. 10/25: slightly worse sodium and persistent hyperkalemia. this combination can be side effect of SXT/TMP. Has sent communication to Dr. 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 his sxt/tmp is in water, so asked pharmacy to reduce volume that his antibiotic is in. not stable in NS, only D5W. (6) Pancytopenia due to chemotherapy Status: Resolved Problem Text: s/p Nulasta 10/14 (7) Paroxysmal atrial fibrillation Status: Chronic Response to Treatment: Stable Problem Text: 10/28: rate control remains adequate with beta braden. 10/25: Multaq stopped due to interaction with voriconazole after discussion with Dr. Arellano. rate controlled on Metoprolol (8) Gram-positive cocci in clusters Status: Resolved Response to Treatment: Stable Problem Text: 11/02/18: BC negative after 5 days 10/19/18: repeat bl. cx negative. 10/17 BCX2 P 10/13 BCX1/1 + for micrococcus. most likley contaminant. will repeat BCX Plan/VTE VTE Prophylaxis Ordered?: Yes (Lovenox) Plan Therapy: PT, OT VS, I&O, 24H, Fishbone Vital Signs/I&O Vital Signs Date Time Temp Pulse Resp B/P (MAP) Pulse Ox O2 Delivery O2 Flow Rate FiO2 11/14/18 06:00 98.4 90 18 135/53 (80) 100 4.0 11/11/18 15:30 Nasal Cannula I&O- Last 24 Hours up to 6 AM 11/14/18 05:59 Intake Total 1180 ml Output Total 350 ml Balance 830 ml Laboratory Data 24H LABS Laboratory Tests 2 11/14/18 05:49: Immature Granulocyte % (Auto) , White Blood Count 2.3L, Red Blood Count 3.84L, Hemoglobin 10.6L, Hematocrit 34.7L, Mean Corpuscular Volume 90.4, Mean Corpuscular Hemoglobin 27.6, Mean Corpuscular Hemoglobin Concent 30.5L, Red Cell Distribution Width 19.0H, Platelet Count 181, Lymphocytes # (Auto) , Nucleated Red Blood Cells % (auto) 0.0, Neutrophils 65, Band Neutrophils 1, Lymphocytes (Manual) 5L, Monocytes (Manual) 19H, Eosinophils (Manual) 1, Basophils (Manual) 2, Metamyelocytes 3H, Myelocytes 4H, Platelet Estimate NORMAL, Anisocytosis 2+, Ovalocytes CBC/BMP Laboratory Tests 11/14/18 05:49 Red Blood Count 3.84 L, Mean Corpuscular Volume 90.4, Mean Corpuscular Hemoglobin 27.6, Mean Corpuscular Hemoglobin Concent 30.5 L, Red Cell Distribution Width 19.0 H, Lymphocytes # (Auto) Jael Martínez MH TEACHER Nov 14, 2018 09:00
[2018-11-14] MEDS: BACTRIM 160MG/800MG DS TAB PO SCH (09:34)
[2018-11-14] MEDS: OMEPRAZOLE 20 MG CAP PO SCH (09:34)
[2018-11-14] MEDS: POTASSIUM CHLORIDE 10 MEQ SR TABLET PO SCH ×2 (09:34→19:59)
[2018-11-14] MEDS: TORSEMIDE 20 MG TAB PO SCH ×2 (09:34→16:23)
[2018-11-14] MEDS: predniSONE 5 MG TAB PO SCH (09:35)
[2018-11-14] MEDS: ENOXAPARIN 40 MG/0.4 ML SYRINGE (J1650) SC SCH (09:35)
[2018-11-14] MEDS: METOPROLOL SUCC *XL* 12.5MG PER 1/2 TAB (TopROL *XL*) PO SCH (19:58)
[2018-11-14 22:00] VITALS: BP 117/78
[2018-11-15] MEDS: IPRATROPIUM 0.5MG/ALBUTEROL 2.5MG INH SOL UD 3ML (DUONEB)(J7620) NEB SCH ×4 (01:34→19:50)
[2018-11-15 06:00] VITALS: BP 137/80
[2018-11-15] MEDS: ENOXAPARIN 40 MG/0.4 ML SYRINGE (J1650) SC SCH (08:44)
[2018-11-15] MEDS: BACTRIM 160MG/800MG DS TAB PO SCH (08:45)
[2018-11-15] MEDS: OMEPRAZOLE 20 MG CAP PO SCH (08:45)
[2018-11-15] MEDS: TORSEMIDE 20 MG TAB PO SCH ×2 (08:46→16:34)
[2018-11-15] MEDS: POTASSIUM CHLORIDE 10 MEQ SR TABLET PO SCH ×2 (08:46→20:03)
[2018-11-15] MEDS: predniSONE 5 MG TAB PO SCH (08:47)
[2018-11-15 20:02] VITALS: BP 125/87
[2018-11-15] MEDS: METOPROLOL SUCC *XL* 12.5MG PER 1/2 TAB (TopROL *XL*) PO SCH (20:02)
[2018-11-16] MEDS: IPRATROPIUM 0.5MG/ALBUTEROL 2.5MG INH SOL UD 3ML (DUONEB)(J7620) NEB SCH ×2 (01:33→07:29)
[2018-11-16 06:00] VITALS: BP 156/87
[2018-11-16] MEDS: POTASSIUM CHLORIDE 10 MEQ SR TABLET PO SCH (08:23)
[2018-11-16] MEDS: BACTRIM 160MG/800MG DS TAB PO SCH (08:23)
[2018-11-16] MEDS: predniSONE 5 MG TAB PO SCH (08:23)
[2018-11-16] MEDS: OMEPRAZOLE 20 MG CAP PO SCH (08:23)
[2018-11-16] MEDS: TORSEMIDE 20 MG TAB PO SCH (08:23)
[2018-11-16] MEDS: ENOXAPARIN 40 MG/0.4 ML SYRINGE (J1650) SC SCH (08:23)
[2018-11-16] MEDS ORDERED: ACET1TAB55 PO (09:50)
[2018-11-16] MEDS ORDERED: TORS20TA2 PO (09:50)
[2018-11-16] MEDS ORDERED: IPRA0.00 NEB (09:50)
[2018-11-16] MEDS ORDERED: KLOR10TA76 PO (09:50)
[2018-11-16] MEDS ORDERED: PRED5TA PO (09:50)
[2018-11-16] MEDS ORDERED: SULF1TAB93 PO (09:50)
== END 2018-11-16 11:40 | DRG 137 ==
LOC: M ED 23:24 → M ED INP 10-14 01:14 → M ICU 10-14 09:30 → M PCU 10-17 09:19 → M ICU 10-26 17:50 → M PCU 10-30 00:45 → M MSPAV 11-03 23:15
PROVIDERS: ADMIT Hospitalist; ATTEND Family Medicine
DX: B59 Pneumocystosis (principal); J96.01 Acute respiratory failure with hypoxia; I50.33 Acute on chronic diastolic (congestive) heart failure; D61.810 Antineoplastic chemotherapy induced pancytopenia; C85.10 Unspecified B-cell lymphoma, unspecified site; D69.6 Thrombocytopenia, unspecified; E87.1 Hypo-osmolality and hyponatremia; I48.0 Paroxysmal atrial fibrillation; E87.6 Hypokalemia; I11.0 Hypertensive heart disease with heart failure; E11.9 Type 2 diabetes mellitus without complications

== ENCOUNTER → 2018-11-17 | Outpatient (REF) ==
[~2018-11-17] MED LIST changes: +ACET1TAB55 PO; +IPRA0.00 NEB; +KLOR10TA76 PO; +OMEP20CA4 PO; +PRED5TA PO; +SULF1TAB93 PO; +TORS20TA2 PO
[2018-11-17 08:21] LABS: BLOOD UREA NITROGEN 11 MG/DL (7-18); CALCIUM LEVEL 8.3 MG/DL (8.8-10.2); CARBON DIOXIDE LEVEL 39 MEQ/L (21-32); CHLORIDE LEVEL 93 MEQ/L (98-107); CREATININE FOR GFR 0.46 MG/DL (0.70-1.30); GLOMERULAR FILTRATION RATE > 60.0 (>49); GLUCOSE, FASTING 109 MG/DL (70-100); POTASSIUM SERUM 3.6 MEQ/L (3.5-5.1); SODIUM LEVEL 137 MEQ/L (136-145)
== END ==
LOC: SKLAB2 07:00
PROVIDERS: ATTEND Family Medicine
DX: E87.1 Hypo-osmolality and hyponatremia (principal)

== ENCOUNTER → 2018-11-21 | Outpatient (REF) ==
[~2018-11-21] MED LIST changes: +OMEP-221 PO; +OMEP1CAP73 PO; -OMEP20CA4 PO; +ONDA8TAB10 PO; -ONDA8TAB7 PO; +PRED10TA2 PO
[2018-11-21 08:24] LABS: BLOOD UREA NITROGEN 13 MG/DL (7-18); CALCIUM LEVEL 8.4 MG/DL (8.8-10.2); CARBON DIOXIDE LEVEL 39 MEQ/L (21-32); CHLORIDE LEVEL 92 MEQ/L (98-107); CREATININE FOR GFR 0.63 MG/DL (0.70-1.30); GLOMERULAR FILTRATION RATE > 60.0 (>49); GLUCOSE, FASTING 99 MG/DL (70-100); POTASSIUM SERUM 3.6 MEQ/L (3.5-5.1); SODIUM LEVEL 137 MEQ/L (136-145)
== END ==
LOC: SKLAB2 07:00
PROVIDERS: ATTEND Family Medicine
DX: E87.6 Hypokalemia (principal)

== ENCOUNTER → 2018-12-05 | Outpatient (REF) ==
[~2018-12-05] MED LIST changes: -OMEP-221 PO; -OMEP1CAP73 PO; +OMEP20CA4 PO; -ONDA8TAB10 PO; +ONDA8TAB7 PO; -PRED10TA2 PO
[2018-12-05 06:59] LABS: BLOOD UREA NITROGEN 12 MG/DL (7-18); CALCIUM LEVEL 8.5 MG/DL (8.8-10.2); CARBON DIOXIDE LEVEL 37 MEQ/L (21-32); CHLORIDE LEVEL 100 MEQ/L (98-107); CREATININE FOR GFR 0.56 MG/DL (0.70-1.30); GLOMERULAR FILTRATION RATE > 60.0 (>49); GLUCOSE, FASTING 85 MG/DL (70-100); POTASSIUM SERUM 4.1 MEQ/L (3.5-5.1); SODIUM LEVEL 141 MEQ/L (136-145)
== END ==
LOC: SKLAB2 07:00
PROVIDERS: ATTEND Family Medicine
DX: E87.1 Hypo-osmolality and hyponatremia (principal)

== ENCOUNTER → 2018-12-12 | Outpatient (REF) ==
[2018-12-12 08:14] LABS: HEMATOCRIT 36.6 % (42.0-52.0); HEMOGLOBIN 11.4 g/dl (13.5-17.5); MEAN CORPUSCULAR HEMOGLOBIN 28.4 pg (27.0-33.0); MEAN CORPUSCULAR HGB CONC 31.1 g/dl (32.0-36.5); MEAN CORPUSCULAR VOLUME 91.3 fl (80.0-96.0); PLATELET COUNT, AUTOMATED 174 10^3/uL (150-450); RED BLOOD COUNT 4.01 10^6/uL (4.30-6.10); WHITE BLOOD COUNT 2.3 10^3/uL (4.0-10.0)
[2018-12-12 08:39] LABS: ALBUMIN 3.2 GM/DL (3.2-5.2); ALT/SGPT 24 U/L (12-78); BILIRUBIN,TOTAL 0.3 MG/DL (0.2-1.0); BLOOD UREA NITROGEN 14 MG/DL (7-18); CALCIUM LEVEL 8.6 MG/DL (8.8-10.2); CARBON DIOXIDE LEVEL 37 MEQ/L (21-32); CHLORIDE LEVEL 97 MEQ/L (98-107); CREATININE FOR GFR 0.58 MG/DL (0.70-1.30); GLOMERULAR FILTRATION RATE > 60.0 (>49); GLUCOSE, FASTING 97 MG/DL (70-100); POTASSIUM SERUM 3.6 MEQ/L (3.5-5.1); SODIUM LEVEL 140 MEQ/L (136-145); TOTAL PROTEIN 5.6 GM/DL (6.4-8.2)
== END ==
LOC: SKLAB2 07:00
PROVIDERS: ATTEND Family Medicine
DX: I50.9 Heart failure, unspecified (principal); D64.9 Anemia, unspecified

== ENCOUNTER → 2018-12-23 | Outpatient (REF) | LOC: SKLAB2 07:10 | PROVIDERS: ATTEND Family Medicine | DX: I50.9 Heart failure, unspecified (principal); D64.9 Anemia, unspecified; E87.1 Hypo-osmolality and hyponatremia; E87.5 Hyperkalemia; Z99.81 Dependence on supplemental oxygen ==

== ENCOUNTER → 2019-01-03 | Outpatient (CLI) | payer OTHER ==
[~2019-01-03] MED LIST changes: +PRED10TA2 PO
--- NOTE | 2019-01-03 14:16 | REP ---
PET/CT: History: Staging large B-cell lymphoma. Increasing LDH levels. Comparisons: Chest CT October 24, 2018. TECHNIQUE: 59 minutes following the intravenous injection of a 8.56 mCi dose of F-18 FDG, three-dimensional PET scintigraphy is acquired from the skull base to the proximal thighs. Triplanar noncontrast CT scanning is acquired through the same anatomic range for attenuation correction, and image registration with scan parameters optimized to minimize radiation exposure to the patient. PET scintigraphy and CT datasets were fused and displayed on a workstation with multiplanar and projection display capability. PET/CT Findings: Head and neck soft tissues are unremarkable. There is some normal variant skeletal muscle uptake along the lateral scapular border on the left. There is a small amount of fluid in both pleural spaces, left more so than right. Minimal non-hypermetabolic FDG accumulation is seen in the pleural spaces bilaterally. There is hypermetabolic uptake in the cavitary lung nodule in the left apex, maximum standard uptake value is 6.34. This is a new finding compared with the prior chest CT. There is a small hypermetabolic nodular focus in the left upper lobe adjacent to the posterior aspect of the aortic knob with maximum standard uptake value 5.26. Two other small foci of hypermetabolic uptake are seen in the left upper lobe parenchyma, maximum standard uptake value 2.81 and 4.39. These are grouped close to one another in the left upper lobe and may well reflect inflammatory disease. No hilar or mediastinal hypermetabolic uptake is seen. There is some residual interstitial lung disease, particularly in the left upper lobe. No abnormal hypermetabolic uptake is seen in the liver or spleen. Normal genitourinary and gastrointestinal FDG distribution is observed. No abnormal hypermetabolic uptake is seen in the abdomen or pelvis. Impression: Hypermetabolic foci clustered in the left upper lobe question inflammatory disease. No other abnormal hypermetabolic uptake. Electronically Signed by Gamaliel Yan MD 01/03/2019 02:32 P
== END ==
LOC: M PLARAD 08:20
PROVIDERS: ATTEND Internal Medicine Hematology & Oncology
DX: C83.33 Diffuse large B-cell lymphoma, intra-abdominal lymph nodes (principal)
CPT/HCPCS: 78815; A9552

== ENCOUNTER → 2019-01-05 | Outpatient (CLI) | payer OTHER ==
--- NOTE | 2019-01-05 14:50 | REP ---
Clinical: Non-Hodgkin's lymphoma. Follow up abnormal findings. Technique: Axial noncontrast images from the thoracic inlet to the upper abdomen with coronal and sagittal re-formations. Comparison: 10/24/2018, 05/26/2018. Findings: Diffuse advanced chronic interstitial changes and fibrosis/scarring with bronchiectasis noted throughout the bilateral lung escobar. Superimposed irregular interstitial and alveolar nodular infiltrates are noted bilaterally and primarily involving the left hemithorax and subpleural spaces along with small bilateral pleural effusions. These findings appear moderately improved when compared to prior examination. Ill-defined soft tissue in the mediastinum and hilum suggests adenopathy. Atherosclerotic changes to the thoracic aorta and coronary arteries noted without aortic aneurysm. No pericardial effusion. Osseous structures demonstrate diffuse degenerative changes. Impression: 1. Chronic changes with moderate to significant superimposed irregular interstitial and alveolar infiltrates including scattered nodular infiltrates and subpleural opacities with small pleural effusions. These findings appear mildly improved when compared to 10/19. Differential diagnosis includes resolving multifocal pneumonia. However, given the patient's history of lymphoma, active disease cannot be excluded. Electronically Signed by Bill Angel MD 01/05/2019 02:42 P
== END ==
LOC: M RAD 14:03
PROVIDERS: ATTEND Internal Medicine Pulmonary Disease
DX: R91.8 Other nonspecific abnormal finding of lung field (principal); C85.90 Non-Hodgkin lymphoma, unspecified, unspecified site

== ENCOUNTER → 2019-01-13 | Outpatient (CLI) | payer OTHER | LOC: M SMT 09:27 | PROVIDERS: ATTEND Internal Medicine Pulmonary Disease | DX: R91.8 Other nonspecific abnormal finding of lung field (principal) ==

== ENCOUNTER 2019-01-24 09:36 | Day surgery (SDC) | payer OTHER ==
[~2019-01-24] VITALS: Ht 160 cm; Wt 84.5 kg
[~2019-01-24 09:36] MED LIST changes: +LIDOCAINE 1% MDV 20ML VIAL SQ PRN; +LR 1,000 ML IV ONE
[2019-01-24] MEDS ORDERED: LIDOCAINE 2% INJ 100 MG/5 ML SDV (FOR ANES.) As Ordered ONE (11:12)
[2019-01-24] MEDS ORDERED: PROPOFOL 200 MG/20 ML VIAL As Ordered ONE ×2 (11:12→13:29)
[2019-01-24] MEDS ORDERED: MIDAZOLAM INJ 2 MG/2 ML VIAL (J2250) As Ordered ONE (11:12)
[2019-01-24] MEDS ORDERED: ROCURONIUM BROMIDE 50 MG/5 ML VIAL As Ordered ONE (11:12)
[2019-01-24] MEDS ORDERED: fentaNYL 100 MCG/2 ML INJECTION (J3010) As Ordered ONE (11:12)
[2019-01-24] MEDS ORDERED: THROMBIN SOLN 5,000 UNITS VIAL As Ordered ONE (12:10)
[2019-01-24] MEDS ORDERED: CETACAINE SPRAY 5GM As Ordered ONE (12:11)
[2019-01-24] MEDS ORDERED: LIDOCAINE 1% SDV INJ 30 ML VIAL As Ordered ONE (12:11)
[2019-01-24] MEDS ORDERED: LIDOCAINE VISCOUS 2% SOLN 15ML UDC As Ordered ONE (12:11)
[2019-01-24] MEDS ORDERED: EPINEPHrine 1MG/10ML SYRINGE 1.5IN As Ordered ONE (12:11)
[2019-01-24] MEDS ORDERED: PHENYLephrine HCL 500 MCG/5 ML (100MCG/ML) SYRINGE (J2370) As Ordered ONE (12:46)
[2019-01-24] MEDS ORDERED: ePHEDrine SULFATE 25 MG/5 ML(5MG/ML) SYRINGE As Ordered ONE (12:49)
[2019-01-24] MEDS ORDERED: SUGAMMADEX SODIUM 500 MG/5 ML VIAL (BRIDION) As Ordered ONE (12:49)
[2019-01-24] MEDS ORDERED: ONDANSETRON 4MG/2ML VIAL (J2405) As Ordered ONE (12:49)
[2019-01-24 14:04] LABS: APPEARANCE HAZY (CLEAR); COLOR PINK (COLORLESS); SOURCE LEFT UPPER LOBE
--- NOTE | 2019-01-24 14:06 | REP ---
Portable chest, 01:44 p.m., single AP view with the patient upright: Comparison is 11/07/2018. Diffuse bilateral interstitial coarsening is again identified, unchanged. The previous bilateral pleural effusions have resolved. Cardiac size appears slightly enlarged although there is magnification from portable positioning. There is a right IJ [id number] catheter, unchanged. There is a loop recorder, unchanged. Impression: Diffuse bilateral interstitial coarsening, unchanged. The previous bilateral pleural effusions have resolved. Electronically Signed by iCsco Finch MD 01/24/2019 01:58 P
[2019-01-24] MEDS ORDERED: PERCOCET 5MG/325MG TAB PO PRN (14:15)
[2019-01-24] MEDS ORDERED: LR 1,000 ML IV SCH (14:15)
[2019-01-24] MEDS ORDERED: ONDANSETRON 4MG/2ML VIAL (J2405) IV PRN (14:15)
[2019-01-24] MEDS ORDERED: fentaNYL 100 MCG/2 ML INJECTION (J3010) IV PRN (14:15)
[2019-01-24] MEDS ORDERED: HYDROMORPHONE HCL 0.5 MG/ 0.5 ML SYRINGE (J1170 PER 1) IV PRN (14:15)
[2019-01-24] MEDS ORDERED: FUROSEMIDE 20 MG/2 ML VIAL (J1940) As Ordered ONE (14:16)
[2019-01-24] MEDS ORDERED: FUROSEMIDE 20 MG/2 ML VIAL (J1940) IV ONE (15:00)
[2019-01-24] MEDS ORDERED: FUROSEMIDE 40 MG/4 ML VIAL (J1940) IV ONE (15:00)
--- NOTE | 2019-01-24 15:22 | REP ---
C-ARM VIEWS LEFT LUNG: Three C-arm views left lung performed during bronchoscopy. The bronchoscope is seen with the distal tip overlying the left upper lobe. 1 minute 22 seconds of fluoroscopy time utilized. Electronically Signed by Cisco Fields MD 01/24/2019 04:01 P
--- NOTE | 2019-01-24 16:01 | RO ---
DATE OF PROCEDURE: 01/24/2019 PREOPERATIVE DIAGNOSIS: Abnormal chest CT. POSTOPERATIVE DIAGNOSIS: Abnormal chest CT. PROCEDURE: Bronchoscopy with electromagnetic navigation procedures. SURGEON: Dr. Cruz NET DEVELOPMENT MANAGER: No assistants. ANESTHESIA: General. FINDINGS: Exfoliating airways. SPECIMENS OBTAINED: 1. Bronchoalveolar lavage (BAL) left upper lobe. 2. Cytobrush left upper lobe. 3. Transbronchial biopsies left upper lobe. No significant blood loss, less than 10 mL, none replaced. No drains. No complications. DESCRIPTION OF PROCEDURE: Informed consent was reviewed with the patient in the preoperative area. He was brought back to operating room (OR) #8, which is a pre-mapped room. Time-out was performed with two patient's identifiers identifying correct site, correct procedure. Case was then handed over to me after anesthesia intubated with an 8.5 endotracheal tube. 1T190 scope was then inserted endotracheally. There was sloughing of the airways more so on the right lateral trachea, right mainstem, but no significant plaquing. Minimal hemorrhage. Airways were friable. The trachea itself was midline. Jayne was fairly sharp. Right and left mainstem bronchus were without endobronchial lesions. There was less of the friability in the left mainstem than there was in the right mainstem. Passed this friability of the airway, right bronchus (RB) 1-10 was normal without endobronchial lesion. There was minimal banding. Bronchus intermedius appeared more normal than the more proximal right mainstem. I then advanced the bronchoscope into the left airway. Left mainstem again more normal than the right mainstem. Left bronchus (LB) 1-10 again was without endobronchial lesion, minimal amounts of mucus coming from the left upper lobe associated with minimal amounts of heme. I performed a bronchoalveolar lavage of the apical segment of the left upper lobe. I then withdrew the bronchoscope into the endotracheal tube and automatic registration was performed for electromagnetic bronchoscopy. The left upper lobe lesion was then easily navigated to. This was confirmed under fluoroscopy. The guide was removed and sheath was remaining. I was within 1 cm of the center of the lesion. A cytology needle brush was first used. This was followed by transbronchial biopsies. After adequate sampling hemostasis was assured, bronchoscope was removed along with the sheath, and there were no observed complications. The patient is in recovery. Chest x-ray is pending. CXR was reviewed, shows increased interstitial markings consistent with pulmonary edema. No evidence of pneumothorax. MTDD
[2019-01-24 16:25] VITALS: BP 120/72
== END 2019-01-24 17:40 | disposition home or self-care (01) ==
LOC: M SDC 09:36
PROVIDERS: ATTEND Internal Medicine Pulmonary Disease
DX: J90 Pleural effusion, not elsewhere classified (principal); J96.01 Acute respiratory failure with hypoxia; C85.19 Unspecified B-cell lymphoma, extranodal and solid organ sites; E11.9 Type 2 diabetes mellitus without complications; Z87.891 Personal history of nicotine dependence; Z79.899 Other long term (current) drug therapy; Z92.21 Personal history of antineoplastic chemotherapy; F41.9 Anxiety disorder, unspecified; K21.9 Gastro-esophageal reflux disease without esophagitis; I48.91 Unspecified atrial fibrillation; I50.9 Heart failure, unspecified; Z79.51 Long term (current) use of inhaled steroids; Z79.52 Long term (current) use of systemic steroids
CPT/HCPCS: 31623; 31624; 31627; 31628; 71045; 76000; 87070; 87102; 87116; 87205; 87206; 88104; 88305; 88312; 89050; A4648; J2250; J2370; J2405; J3010

== ENCOUNTER → 2019-02-10 | Outpatient (REF) | payer OTHER ==
[~2019-02-10] MED LIST changes: -LIDOCAINE 1% MDV 20ML VIAL SQ PRN; -LR 1,000 ML IV ONE
[2019-02-10 16:48] LABS: HEMATOCRIT 42.1 % (42.0-52.0); HEMOGLOBIN 13.2 g/dl (13.5-17.5); MEAN CORPUSCULAR HEMOGLOBIN 28.8 pg (27.0-33.0); MEAN CORPUSCULAR HGB CONC 31.4 g/dl (32.0-36.5); MEAN CORPUSCULAR VOLUME 91.7 fl (80.0-96.0); PLATELET COUNT, AUTOMATED 221 10^3/uL (150-450); RED BLOOD COUNT 4.59 10^6/uL (4.30-6.10); WHITE BLOOD COUNT 4.4 10^3/uL (4.0-10.0)
[2019-02-10 17:07] LABS: ALBUMIN 3.9 GM/DL (3.2-5.2); ALT/SGPT 23 U/L (12-78); BILIRUBIN,TOTAL 0.4 MG/DL (0.2-1.0); BLOOD UREA NITROGEN 17 MG/DL (7-18); CALCIUM LEVEL 8.8 MG/DL (8.8-10.2); CARBON DIOXIDE LEVEL 35 MEQ/L (21-32); CHLORIDE LEVEL 98 MEQ/L (98-107); CHOLESTEROL LEVEL 175 MG/DL (<200); CREATININE FOR GFR 0.72 MG/DL (0.70-1.30); GLOMERULAR FILTRATION RATE > 60.0 (>49); GLUCOSE, FASTING 137 MG/DL (70-100); HDL CHOLESTEROL 72 MG/DL (>40); LDL CHOLESTEROL 84 MG/DL (<100); NON-HDL-C 103 MG/DL; POTASSIUM SERUM 4.1 MEQ/L (3.5-5.1); SODIUM LEVEL 139 MEQ/L (136-145); TOTAL 25(OH) VITAMIN D 16.2 NG/ML (30.0-100.0); TOTAL PROTEIN 6.5 GM/DL (6.4-8.2); TRIGLYCERIDES LEVEL 94 MG/DL (<150)
[2019-02-10 17:23] LABS: MALB URINE SIEMENS < 5.0 MG/L; MAU/CREAT RATIO 23.8 MCG/MG (0.0-30.0)
[2019-02-10 18:09] LABS: HEMOGLOBIN A1c 5.9 %
== END ==
LOC: M SFHCCLAY 11:53
PROVIDERS: ATTEND Nurse Practitioner Family
DX: E11.9 Type 2 diabetes mellitus without complications (principal); I10 Essential (primary) hypertension; E78.5 Hyperlipidemia, unspecified; E55.9 Vitamin D deficiency, unspecified

== ENCOUNTER → 2019-05-17 | Outpatient (REF) | payer OTHER ==
[~2019-05-17] MED LIST changes: +OMEP-221 PO; +OMEP1CAP73 PO; -OMEP20CA4 PO; +ONDA8TAB10 PO; -ONDA8TAB7 PO
[2019-05-17 17:02] LABS: HEMOGLOBIN A1c 7.1 %
== END ==
LOC: M SFHCCLAY 11:49
PROVIDERS: ATTEND Nurse Practitioner Family
DX: E11.9 Type 2 diabetes mellitus without complications (principal); E55.9 Vitamin D deficiency, unspecified

== ENCOUNTER 2020-06-07 15:18 | Inpatient (IN) | payer MEDICAID, OTHER, SELFPAY ==
[~2020-06-07] VITALS: Ht 170.2 cm; Wt 83.5 kg
[~2020-06-07 15:18] MED LIST changes: +HYDR-3490 PO; -HYDR25TAB PO; +PANT40TA29 PO; -PANT40TA3 PO
--- NOTE | 2020-06-07 16:16 | REP ---
INDICATION: DYSPNEA/COUGH. COMPARISON: Comparison portable chest x-ray January 24, 2019. TECHNIQUE: Portable upright AP chest radiograph. FINDINGS: No focal infiltrate is seen. Interstitial markings are mildly prominent. Mild cardiomegaly is again observed. Pulmonary vasculature is not increased.. A loop recorder is seen projecting over the left heart border. Monitoring electrodes are seen. An Zflxzk-G-Xrdd catheter is seen in place. Interstitial markings are improved compared with the 01/24/2019 study. IMPRESSION: Mild cardiomegaly. Loop recorder and Qgniyd-A-Ulrs catheter. Mildly prominent interstitial pattern. Interstitial markings are improved from January 24, 2019.. <Electronically signed by Issa Yan > 06/07/20 1747
--- OUTSIDE RECORDS SUMMARY | 2020-06-07 16:29 | CCD ---
Author Author [facility] Organization [facility] Address Unknown Phone Unavailable Care Team Providers Care Adjustment Examiner Name Role Phone Haja Arellano MD Unavailable Unavailable Haja Arellano MD Unavailable Unavailable Haja Arellano MD Unavailable Unavailable Haja Arellano MD Unavailable Unavailable Haja Arellano MD Unavailable Unavailable Haja Arellano MD Unavailable Unavailable Haja Arellano MD Unavailable Unavailable Haja Arellano MD Unavailable Unavailable Haja Arellano MD Unavailable Unavailable Haja Arellano MD Unavailable Unavailable Haja Arellano MD Unavailable Unavailable Haja Arellano MD Unavailable Unavailable Haja Arellano MD Unavailable Unavailable Haja Arellano MD Unavailable Unavailable Haja Arellano MD Unavailable Unavailable Haja Arellano MD Unavailable Unavailable Haja Arellano MD Unavailable Unavailable Haja Arellano MD Unavailable Unavailable Haja Arellano MD Unavailable Unavailable Haja Arellano MD Unavailable Unavailable Haja Arellano MD Unavailable Unavailable Haja Arellano MD Unavailable Unavailable Haja Arellano MD Unavailable Unavailable Haja Arellano MD Unavailable Unavailable Haja Arellano MD Unavailable Unavailable Haja Arellano MD Unavailable Unavailable Haja Arellano MD Unavailable Unavailable Haja Arellano MD Unavailable Unavailable Haja Arellano MD Unavailable Unavailable Haja Arellano MD Unavailable Unavailable SleHaja armijo MD Unavailable Unavailable SlezkaGeraldjtech MD Unavailable Unavailable SlezkaGeraldjtech MD Unavailable Unavailable SlecielokaAnntech Unavailable Unavailable SlezkaGeraldjtech Unavailable Unavailable SlecielokaAnntech Unavailable Unavailable SlezkaGeraldjtech MD Unavailable Unavailable SlezkaGeraldjtech MD Unavailable Unavailable SlezkaGeraldjtech MD Unavailable Unavailable SlecielokaGeraldjtech Unavailable Unavailable SlezkaGeraldjtech MD Unavailable Unavailable SlezkaGeraldjtech Unavailable Unavailable Slezka Vojtech MD Unavailable Unavailable Slezka Vojtech MD Unavailable Unavailable Slezka Vojtech MD Unavailable Unavailable SlezkaGeraldjtech Unavailable Unavailable SlezkaGeraldjtech MD Unavailable Unavailable SlecielokaGeraldjtech MD Unavailable Unavailable SlezkaGeraldjtech MD Unavailable Unavailable SlecielokaGeraldjtech MD Unavailable Unavailable SlezkaGeraldjtech MD Unavailable Unavailable SleGerald armijojtech Unavailable Unavailable SlecielokaGeraldjtech MD Unavailable Unavailable SleHaja armijo MD Unavailable Unavailable SlecielokaGeraldjtech MD Unavailable Unavailable SlecielokaGeraldjtech MD Unavailable Unavailable SlezkaGeraldjtech MD Unavailable Unavailable SlecielokaHaja MD Unavailable Unavailable YaAlessandra alejandreelle PA Unavailable Unavailable YaAlessandra alejandreelle PA Unavailable Unavailable YaAlessandra alejandreelle PA Unavailable Unavailable YaAlessandraelle PA Unavailable Unavailable Ya, Alessandra KelleyTeresa PA Unavailable Unavailable Ya, Alessandra KelleyTeresa PA Unavailable Unavailable Ya, Alessandra KelleyTeresa PA Unavailable Unavailable Ya, Alessandra KelleyTeresa PA Unavailable Unavailable Ya, L Teresa PA Unavailable Unavailable Ya, L Teresa PA Unavailable Unavailable Ya, L Teresa PA Unavailable Unavailable Ya, L Teresa PA Unavailable Unavailable Ya, L Teresa PA Unavailable Unavailable Ya, L Teresa PA Unavailable Unavailable Ya, L Teresa PA Unavailable Unavailable Ya, L Teresa PA Unavailable Unavailable Ya, Alessandra KelleyTeresa PA Unavailable Unavailable Ya, Alessandra KelleyTeresa PA Unavailable Unavailable Ya, Alessandra KelleyTeresa PA Unavailable Unavailable Ya, L Teresa PA Unavailable Unavailable Ya, L Teresa PA Unavailable Unavailable Ya, L Teresa PA Unavailable Unavailable Ya, Alessandra KelleyTeresa PA Unavailable Unavailable Ya, Alessandra KelleyTeresa PA Unavailable Unavailable Ya, L Teresa PA Unavailable Unavailable Ya, L Teresa PA Unavailable Unavailable Ya, L Teresa PA Unavailable Unavailable Ya, L Teresa PA Unavailable Unavailable Ya, L Teresa PA Unavailable Unavailable Ya, L Teresa PA Unavailable Unavailable Ya, L Teresa PA Unavailable Unavailable Ya, L Teresa PA Unavailable Unavailable Ya, L Teresa PA Unavailable Unavailable Ya, L Teresa PA Unavailable Unavailable Ya, L Teresa PA Unavailable Unavailable Ya, L Teresa PA Unavailable Unavailable Re-disclosure Warning The records that you are about to access may contain information from federally-assisted alcohol or drug abuse programs. If such information is present, then the following federally mandated warning applies: This information has been disclosed to you from records protected by federal confidentiality rules (42 CFR part 2). The federal rules prohibit you from making any further disclosure of this information unless further disclosure is expressly permitted by the written consent of the person to whom it pertains or as otherwise permitted by 42 CFR part 2. A general authorization for the release of medical or other information is NOT sufficient for this purpose. The Federal rules restrict any use of the information to criminally investigate or prosecute any alcohol or drug abuse patient.The records that you are about to access may contain highly sensitive health information, the redisclosure of which is protected by Article 27-F of the [facility] Public [facility] law. If you continue you may have access to information: Regarding HIV / AIDS; Provided by facilities licensed or operated by the [facility] Office of Mental Health; or Provided by the [facility] Office for People With Developmental Disabilities. If such information is present, then the following [facility] mandated warning applies: This information has been disclosed to you from confidential records which are protected by state law. State law prohibits you from making any further disclosure of this information without the specific written consent of the person to whom it pertains, or as otherwise permitted by law. Any unauthorized further disclosure in violation of state law may result in a fine or mcfp sentence or both. A general authorization for the release of medical or other information is NOT sufficient authorization for further disc losure. Family History Family Member Name Family Member Gender Family Member Status Date o f Status Description Data Source(s) Unknown Male Problem [facility] ) Encounters Encounter Providers Location Date Indications Data Source(s ) Outpatient [email or web address] 05/23/2020 12:00 :00 AM EST - 05/23/2020 02:29:[address] [facility] Outpatient Attender: Teresa [email or web address]-[email or web address].[email or web address] 09/2019 12:00:00 AM EST - 03/07/2020 04:29:[address] [facility] Outpatient [email or web address] 01/12/2020 03:47:[address] [facility] Outpatient [email or web address] 01/02/2020 10:37:[address] [facility] Outpatient [email or web address] 11/17/2019 11:21:[address] [facility] Outpatient [email or web address] 11/15/2019 09:46:[address] [facility] Outpatient [email or web address] 10/05/2019 04:30:[address] [facility] Outpatient Attender: Teresa SILVAOTONIEL-[email or web address].[email or web address] 12:00:00 AM EDT - 08/24/2019 02:33:[address] [facility] Outpatient Attender: Teresa SILVAOTONIEL-[email or web address].OTONIEL 12:00:[address] [facility] Outpatient Referrer: Haja SILVACT-SJP.SYR 07/02 03:25:28 PM EDT [address] [place] [address] 07/18/2019 12:00:00 AM EDT eCW1 ([facility]) [address] [place] [address] 05/19/2019 12:00:00 AM EST eCW1 ([facility]) [address] [place] [address] 05/19/2019 12:00:00 AM EST eCW1 ([facility]) [place] [id number] [facility] [address] 05/17/2019 12:00:00 AM EST eCW1 ([facility]) Outpatient Attender: Haja MARIE.[email or web address] 05/03 12:00:00 AM EST - 05/16/2019 03:40:[address] [facility] Outpatient 05/04/2019 08:28:00 PM EST [facility] Medications Medication Brand Name Start Date Product Form Dose Route Admi nistrative Instructions Pharmacy Instructions Status Indications Reaction Description Data Source(s) Potassium Chloride 20 MEQ Extended Relea se Oral Tablet Potassium Chloride ER 20 MEQ TBCR Potassium Chloride ER 20 MEQ TBCR 01/15/2020 12:00:00 AM EDT active TAKE ONE TABLET BY MOUTH TWO CECILLE ES A DAY WITH FOOD [facility] 20 mg 08/25/2019 12:00:00 AM EDT tablet 360 TAKE TWO TABLETS BY MOUTH TWICE A DAY TAKE TWO TABLETS BY MOUTH TWICE A DAY SOLD: 05/18/2020 [facility] 20 mg 08/25/2019 12:00:00 AM EDT tablet 360 TAKE TWO TABLETS BY MOUTH TWICE A DAY TAKE TWO TABLETS BY MOUTH TWICE A DAY SOLD: 08/26/2019 [facility] 20 mEq 08/23/2019 12:00:00 AM EDT tablet extended release 60 TAKE ONE TABLET BY MOUTH TWO TIMES A DAY WITH FOOD TAKE ONE TABLET BY MOUTH TWO TIMES A DAY WITH FOOD SOLD: 03/19/2020 [facility] 20 mEq 08/23/2019 12:00:00 AM EDT tablet extended release 60 TAKE ONE TABLET BY MOUTH TWO TIMES A DAY WITH FOOD TAKE ONE TABLET BY MOUTH TWO TIMES A DAY WITH FOOD SOLD: 08/24/2019 [facility] 20 mEq 08/23/2019 12:00:00 AM EDT tablet extended release 60 TAKE ONE TABLET BY MOUTH TWO TIMES A DAY WITH FOOD TAKE ONE TABLET BY MOUTH TWO TIMES A DAY WITH FOOD SOLD: 11/30/2019 [facility] 20 mEq 08/23/2019 12:00:00 AM EDT tablet extended release 60 TAKE ONE TABLET BY MOUTH TWO TIMES A DAY WITH FOOD TAKE ONE TABLET BY MOUTH TWO TIMES A DAY WITH FOOD SOLD: 01/16/2020 [facility] 20 mg 07/17/2019 12:00:00 AM EDT tablet 60 TAKE ONE TABLET BY MOUTH TWICE A DAY TAKE ONE TABLET BY MOUTH TWICE A DAY SOLD: 07/19/2019 [facility] 0.5 mg-3 mg(2.5 mg base)/3 mL 07/12/2019 12:00:0 0 AM EDT solution for nebulization 360 INHALE THE CONTENTS OF 1 VIAL A NEBULIZER EVERY 6 HOURS INHALE THE CONTENTS OF 1 VIAL VIA NEBULIZER EVERY 6 HOURS SOLD: 07/14/2019 [facility] Ergocalciferol 03631 UNT Oral Capsule vi tamin D, Ergocalciferol, 1.25 MG (59885 UT) CAPS vitamin D, Ergocalciferol, 1.25 MG (59336 UT) CAPS 01/2020 12:00:00 AM EDT 1 {capsule} Oral aborted Take 1 caps ule by mouth once a week [facility] Metformin hydrochloride 500 MG Oral Tablet metFORMIN ( GLUCOPHAGE) 500 MG tablet metFORMIN (GLUCOPHAGE) 500 MG tablet 06/20/2019 12:00:00 AM EST 1 { tbl} Oral aborted Take 1 tablet by mouth aayush hernandez [facility] 500 mg 05/20/2019 12:00:00 AM EST tablet 30 TAKE ONE TABLET BY MOUTH EVERY EVENING WITH EVENING MEAL TAKE ONE TABLET BY MOUTH EVERY EVENING W ITH EVENING MEAL SOLD: 05/20/2019 [facility] 500 mg 05/20/2019 12:00:00 AM EST tablet 30 TAKE ONE TABLET BY MOUTH EVERY EVENING WITH EVENING MEAL TAKE ONE TABLET BY MOUTH EVERY EVENING W ITH EVENING MEAL SOLD: 06/21/2019 [facility] 500 mg 05/20/2019 12:00:00 AM EST tablet 30 TAKE ONE TABLET BY MOUTH EVERY EVENING WITH EVENING MEAL TAKE ONE TABLET BY MOUTH EVERY EVENING W ITH EVENING MEAL SOLD: 08/24/2019 [facility] 1,250 mcg (50,000 unit) 05/20/2019 12:00:00 AM EST capsule 4 TAKE ONE CAPSULE BY MOUTH ONCE A WEEK TAKE ONE CAPSULE BY MOUTH ONCE A WEEK SOLD: 06/14/2019 [facility] 1,250 mcg (50,000 unit) 05/20/2019 12:00:00 AM EST capsule 4 TAKE ONE CAPSULE BY MOUTH ONCE A WEEK TAKE ONE CAPSULE BY MOUTH ONCE A WEEK SOLD: 07/14/2019 [facility] 1,250 mcg (50,000 unit) 05/20/2019 12:00:00 AM EST capsule 4 TAKE ONE CAPSULE BY MOUTH ONCE A WEEK TAKE ONE CAPSULE BY MOUTH ONCE A WEEK SOLD: 08/08/2019 [facility] 1,250 mcg (50,000 unit) 05/20/2019 12:00:00 AM EST capsule 4 TAKE ONE CAPSULE BY MOUTH ONCE A WEEK TAKE ONE CAPSULE BY MOUTH ONCE A WEEK SOLD: 05/20/2019 [facility] Ergocalciferol 51320 UNT Oral Capsule [Drisdol] Drisdo l 1.25 MG (90143 UT) Drisdol 1.25 MG (72189 UT) 05/19/2019 12:00:00 AM EST active 1 capsule eCW1 ([facility]) Metformin hydrochloride 500 MG Oral Tablet Metformin H Cl 500 MG Metformin HCl 500 MG 05/19/2019 12:00:00 AM EST active 1 tablet with evening meal eCW1 ([facility]) Albuterol 0.833 MG/ML / Ipratropium Brom nilda 0.167 MG/ML Inhalant Solution ipratropium-albuterol (DUO-NEB) 0.5-2.5 mg/mL nebulizer ipratropium-albuterol (DUO-NEB) 0.5-2.5 mg/mL nebulizer 05/09/2019 12:00:00 AM EST aborted INHALE ONE VIAL VIA NEBULIZER EVERY [address] [facility] 5 mg 01/30/2019 12:00:00 AM EDT tablet 30 TAKE ONE TABLET BY MOUTH EVERY DAY TAKE ONE TABLET BY MOUTH EVERY DAY SOLD: 05/10/2019 [facility] 5 mg 01/30/2019 12:00:00 AM EDT tablet 30 TAKE ONE TABLET BY MOUTH EVERY DAY TAKE ONE TABLET BY MOUTH EVERY DAY SOLD: 07/14/2019 [facility] 0.5 mg-3 mg(2.5 mg base)/3 mL 12/30/2018 12:00:0 0 AM EDT solution for nebulization 360 INHALE ONE VIAL VIA NEBULIZER EV COLBY 6 HOURS INHALE ONE VIAL VIA NEBULIZER EVERY 6 HOURS SOLD: 05/10/2019 [facility] 20 mEq 12/27/2018 12:00:00 AM EDT tablet extended release 60 TAKE ONE TABLET BY MOUTH TWICE A DAY WITH FOOD TAKE ONE TABLET BY MOUTH TWICE A DAY WITH FOOD SOLD: 06/01/2019 [facility] 20 mg 12/27/2018 12:00:00 AM EDT tablet 60 TAKE ONE TABLET BY MOUTH TWICE A DAY TAKE ONE TABLET BY MOUTH TWICE A DAY SOLD: 05/17/2019 [facility] Insurance Providers Payer name Policy type / Coverage type Policy ID Covered alliance party ID Covered alliance party's relationship to campuzano Policy Campuzano Plan Information [facility] COMM[facility] [id number] SP [id number] [facility] MEDICAID [id number] Kelsea [id number] [facility] MEDICAID [id number] Kelsea [id number] [facility] O [id number] S [id number] [facility] COMMUNITY PLAN [facility] [id number] SP [id number] [facility]-Medicaid [id number] [facility]-Medicaid [id number] ANS-Medicaid [id number] [facility]-Medicaid [id number] [facility]-Medicaid [id number] [facility]-Medicaid [id number] [facility]-Medicaid [id number] ANSI-Medicaid [id number] [facility] MEDICAID [id number] S [id number] ANSI-Medicaid [id number] ANSI-Medicaid [id number] [employer] MEDICAID [id number] S [id number] ANSI-Medicaid [id number] ANSI-Medicaid [id number] [facility] MEDICAID PI PI [facility] I [id number] Self [id number] ANSI-Medicaid [id number] ANSI-Medicaid [id number] [facility] Health Maintenance Organization (HMO) [id number] Self [id number] ANSI-Medicaid [id number] ANSI-Medicaid [id number] [facility]-Medicaid [id number] [facility]-Medicaid [id number] SELF PAY UNAVAILABLE UNAVAILA BLE Problems, Conditions, and Diagnoses Code Display Name Description Problem Type Effective Dates Data Source(s) I50.32 Chronic diastolic heart failure Chronic diastolic hear t failure [id number] 08/17/2019 12:00:[address] [facility] R06.02 Shortness of breath Shortness of breath Diagnosis 1 05/07/2019 02:52:[address] [facility] I48.0 Paroxysmal atrial fibrillation Paroxysmal atrial fibri llation Diagnosis 03/07/2020 02:52:[address] [facility] C83.38 Diffuse large B-cell lymphoma, lymph nod es of multiple sites Diffuse large b-cell lymphoma, lymph nod Diagnosis 03/07/2020 02:52:[address] [facility] I10 Essential (primary) hypertension Essential (primary) h ypertension Diagnosis 03/07/2020 02:52:[address] [facility] I50.32 Chronic diastolic (congestive) heart jamie lure Chronic diastolic (congestive) heart jamie Diagnosis 03/07/2020 02:52:26 PM EST [facility] R07.9 Chest pain, unspecified Chest pain, unspecified Diagno sis 03/07/2020 02:52:[address] [facility] Social History Code Duration Value Status Description Data Source(s ) Alcohol intake 03/07/2020 12:00:00 AM EST No completed [facility] Cigarette pack-years 03/07/2020 12:00:00 AM EST UNK completed [facility] Cigarettes smoked current (pack per day) - Reported 03/07/20 20 12:00:00 AM EST UNK completed [facility] Smoking 03/07/2020 12:00:00 AM EST Former smoker completed Former smoker [facility] Vital Signs ID Date Data Source UNK Name Value Range Interpretation Code Description Data Source(s) Oxygen saturation in Arterial blood by Pulse oximetry 94 % 94 % [facility] Body mass index (BMI) [Ratio] 38.99 kg/m2 38.99 kg/m2 [facility] Body weight 96.707 kg 96.[address] [facility] Body height 157.5 cm 157.[address] [facility] Heart rate 86 /min 86 /min [facility] Diastolic blood pressure 78 mm[Hg] 78 mm[Hg] [facility] Systolic blood pressure 112 mm[Hg] 112 mm[Hg] [facility] Diastolic blood pressure 85 mm[Hg] 85 mm[Hg] eCW1 ([facility]) Systolic blood pressure 127 mm[Hg] 127 mm[Hg] e CW1 ([facility]) Body temperature 96.8 [degF] 96.8 [degF] eCW1 ( [facility]) Respiratory rate 20 /min 20 /min eCW1 ([facility]) Heart rate 72 /min 72 /min eCW1 ([facility]) Body mass index (BMI) [Ratio] 41.33 kg/m2 41.33 kg/m2 eCW1 ([facility]) Body height 62 [in_us] 62 [in_us] eCW1 ([facility]) Body weight Measured 226 [lb_av] 226 [lb_av] eC W1 ([facility]) Patient Treatment Plan of Care Planned Activity Planned Date Details Description Data Source (s) Potassium Chloride 20 MEQ Extended Release Oral Tablet 01/15/2020 12:00:00 AM EDT [facility] Ergocalciferol 14950 UNT Oral Capsule 07/10/2019 12:00:[address] [facility] Metformin hydrochloride 500 MG Oral Tablet 06/20/2019 12:00:00 AM E [facility] Ergocalciferol 35824 UNT Oral Capsule [Drisdol] 05/19/2019 12:00:00 AM EST [facility] ([facility]) Metformin hydrochloride 500 MG Oral Tablet 05/19/2019 12:00:00 AM E [place] [address] ([facility]) Albuterol 0.833 MG/ML / Ipratropium [place] 0.167 MG/M L Inhalant Solution 05/09/2019 12:00:[address] [facility]
[2020-06-07 16:32] LABS: VENOUS BASE EXCESS 8.2 (-2.0-2.0); VENOUS HCO3 32.7 MEQ/L (23.0-27.0); VENOUS O2 SATURATION 78.9 % (60.0-80.0); VENOUS PARTIAL PRESSURE CO2 44.7 mmHg (38.0-50.0); VENOUS PARTIAL PRESSURE O2 46.6 mmHg (30.0-50.0); VENOUS PH 7.482 UNITS (7.330-7.430); VENOUS STANDARD HCO3 31.5 MEQ/L; VENOUS TOTAL CO2 34.1 MEQ/L (24.0-28.0)
[2020-06-07 16:40] LABS: BASO % 0.6 % (0.0-1.0); EOS % 0.6 % (0.0-3.0); HEMATOCRIT 41.7 % (42.0-52.0); HEMOGLOBIN 13.5 g/dl (13.5-17.5); LYMPH # 0.2 10^3/uL (1.5-5.0); MEAN CORPUSCULAR HEMOGLOBIN 26.3 pg (27.0-33.0); MEAN CORPUSCULAR HGB CONC 32.4 g/dl (32.0-36.5); MEAN CORPUSCULAR VOLUME 81.1 fl (80.0-96.0); MONO # 0.4 10^3/uL (0.0-0.8); MONO % 22.1 % (0.0-5.0); NEUTROPHILS % 60.4 % (36.0-66.0); PLATELET COUNT, AUTOMATED 162 10^3/uL (150-450); RED BLOOD COUNT 5.14 10^6/uL (4.30-6.10); WHITE BLOOD COUNT 1.7 10^3/uL (4.0-10.0)
[2020-06-07 16:52] LABS: INR 1.24; PROTHROMBIN TIME 15.9 SECONDS (12.5-14.3)
[2020-06-07 17:10] LABS: ALBUMIN 3.4 GM/DL (3.2-5.2); ALT/SGPT 18 U/L (12-78); BILIRUBIN,DIRECT 0.9 MG/DL (0.0-0.2); BILIRUBIN,TOTAL 1.7 MG/DL (0.2-1.0); BLOOD UREA NITROGEN 29 MG/DL (7-18); CALCIUM LEVEL 8.5 MG/DL (8.8-10.2); CARBON DIOXIDE LEVEL 36 MEQ/L (21-32); CHLORIDE LEVEL 86 MEQ/L (98-107); CK-MB VALUE MASS 2.8 NG/ML (<3.6); CPK CREATINE PHOSPHOKINASE 60 U/L (39-308); CREATININE FOR GFR 1.28 MG/DL (0.70-1.30); GLOMERULAR FILTRATION RATE > 60.0 (>49); GLUCOSE, FASTING 132 MG/DL (70-100); MB/CK RELATIVE INDEX 4.67 (< OR =4); NT-PRO BNP 5285 PG/ML (<125); POTASSIUM SERUM 3.2 MEQ/L (3.5-5.1); SODIUM LEVEL 134 MEQ/L (136-145); THYROXINE (T4) 13.7 UG/DL (4.5-12.0); TOTAL PROTEIN 5.8 GM/DL (6.4-8.2); TROPONIN I 0.21 NG/ML (< 0.10)
--- NOTE | 2020-06-07 18:22 | REPVR ---
PROCEDURE INFORMATION: Exam: CT Cervical Spine Without Contrast Exam date and time: 06/07/2020 4:31 PM Age: 65 years old Clinical indication: Injury or trauma; Fall; Blunt trauma TECHNIQUE: Imaging protocol: Computed tomography images of the cervical spine without contrast. Radiation optimization: All CT scans at this facility use at least one of these dose optimization techniques: automated exposure control; mA and/or kV adjustment per patient size (includes targeted exams where dose is matched to clinical indication); or iterative reconstruction. COMPARISON: PT PET/CT Skull/mid thigh 01/03/2019 10:26 AM FINDINGS: Bones/joints: No acute fracture. Levoscoliosis. Discs/Spinal canal/Neural foramina: There are degenerative changes demonstrated in the atlantoaxial joint at C1-C2 with osteophytes and joint space narrowing. The transverse ligament is normal. Moderate foraminal stenosis on the right at C3, bilateral moderate foraminal stenosis at C4 and C5 and mild bilateral foraminal stenosis at C6 secondary to uncinate joint hypertrophic changes. Posterior intervertebral osteophyte at C5-C6 effaces the ventral subarachnoid space with impingement on the left hemicord. Lungs: Lung apices are normal. Soft tissues: See "Discs/Spinal canal/Neural foramina" finding. IMPRESSION: 1. Degenerative spondylosis. 2. Multilevel foraminal stenoses and left hemicord impingement at C5-C6. 3. No acute findings. Electronically signed by: Baljit Tatum On 06/07/2020 18:21:54 PM
--- NOTE | 2020-06-07 18:24 | REPVR ---
PROCEDURE INFORMATION: Exam: CT Head Without Contrast Exam date and time: 06/07/2020 4:31 PM Age: 65 years old Clinical indication: Injury or trauma; Fall; Blunt trauma (contusions or hematomas) TECHNIQUE: Imaging protocol: Computed tomography of the head without contrast. Radiation optimization: All CT scans at this facility use at least one of these dose optimization techniques: automated exposure control; mA and/or kV adjustment per patient size (includes targeted exams where dose is matched to clinical indication); or iterative reconstruction. COMPARISON: MRI BRAIN W/ W/O CONTRAST - OUTSIDE PRIOR 05/30/2018 5:04 PM FINDINGS: Brain: There is moderate parenchymal volume loss. White matter changes are demonstrated in the subcortical, centrum semiovale and periventricular white matter consistent with chronic age related small vessel ischemic changes. Small lacunar infarct right thalamus. Cerebral ventricles: The degree of ventricular dilatation is normal for age and/or degree of atrophy present. Bones/joints: Unremarkable. No acute fracture. Paranasal sinuses: Visualized sinuses are unremarkable. No fluid levels. Mastoid air cells: Visualized mastoid air cells are well aerated. Vasculature: Atherosclerotic calcifications are demonstrated in the intracranial carotid arteries bilaterally as well as in the vertebral basilar system. Soft tissues: Unremarkable. IMPRESSION: 1. There is moderate parenchymal volume loss. White matter changes are demonstrated in the subcortical, centrum semiovale and periventricular white matter consistent with chronic age related small vessel ischemic changes. 2. The degree of ventricular dilatation is normal for age and/or degree of atrophy present. 3. No acute intracranial findings. Electronically signed by: Baljit Tatum On 06/07/2020 18:23:58 PM
[2020-06-07 19:37] LABS: CK-MB VALUE MASS 2.2 NG/ML (<3.6); TROPONIN I 0.22 NG/ML (< 0.10)
[2020-06-07] MEDS ORDERED: POTA20TA6 PO (20:10)
[2020-06-07] MEDS ORDERED: TORS20TA2 PO (20:10)
--- NOTE | 2020-06-07 20:29 | ECGEPIP ---
[facility] - ED Test Date: 2020-06-07 Pat Name: PAUL SMART Department: Room: - Gender: Male Community Resource Officer: garethmisael : 1955 Requested By: YAZ Zhou Order Number: [id number] Reading MD: Audie Chance Measurements Intervals [place] Rate: 119 P: [place]: 0 QRS: 92 QRSD: 144 T: 39 QT: 399 QTc: 563 Interpretive Statements ATRIAL FIBRILLATION WITH RAPID VENTRICULAR RESPONSE INDETERMINATE AXIS RIGHT BUNDLE BRANCH BLOCK RATE CHANGE COMPARED TO 10/26/18 Electronically Signed on 06-07-2020 20:29:19 EST by Audie Chance
--- NOTE | 2020-06-07 20:33 | ECGEPIP ---
[facility] - ED Test Date: 2020-06-07 Pat Name: PAUL SMART Department: Room: - Gender: Male Air Dispatcher: chiara : 1955 Requested By: YAZ Zhou Order Number: [id number] Reading MD: Audie Chance Measurements Intervals [place] Rate: 109 P: [place]: 0 QRS: 67 QRSD: 139 T: 56 QT: 397 QTc: 535 Interpretive Statements ATRIAL FIBRILLATION WITH RAPID VENTRICULAR RESPONSE INDETERMINATE AXIS RIGHT BUNDLE BRANCH BLOCK SIMILAR TO PRIOR ON SAME DATE Electronically Signed on 06-07-2020 20:32:50 EST by Audie Chance
[2020-06-08 08:18] LABS: HEMATOCRIT 39.4 % (42.0-52.0); HEMOGLOBIN 12.5 g/dl (13.5-17.5); MEAN CORPUSCULAR HEMOGLOBIN 26.1 pg (27.0-33.0); MEAN CORPUSCULAR HGB CONC 31.7 g/dl (32.0-36.5); MEAN CORPUSCULAR VOLUME 82.3 fl (80.0-96.0); PLATELET COUNT, AUTOMATED 145 10^3/uL (150-450); RED BLOOD COUNT 4.79 10^6/uL (4.30-6.10); WHITE BLOOD COUNT 2.6 10^3/uL (4.0-10.0)
[2020-06-08 08:45] LABS: ATYPICAL LYMPH 3 % (0-5); LYMPHOCYTES 22 % (16-44); MONOCYTES 14 % (0-5); NEUTROPHILS 46 % (28-66)
[2020-06-08 08:46] LABS: PLATELET ESTIMATE DECREASED (NORMAL)
[2020-06-08 08:47] LABS: ANISOCYTOSIS 1+; DOHLE BODIES 1+
[2020-06-08 08:48] LABS: POLYCHROMASIA 1+
[2020-06-08 08:53] LABS: FREE T4 1.69 NG/DL (0.76-1.46); THYROID STIMULATING HORMONE 1.03 uIU/ML (0.358-3.740); TROPONIN I 0.13 NG/ML (< 0.10)
[2020-06-08] MEDS ORDERED: ENOXAPARIN 40MG/0.4ML SYRINGE (J1650 PER 10MG) SC ONE (09:00)
[2020-06-08] MEDS ORDERED: TORSEMIDE 20 MG TAB PO SCH (09:00)
[2020-06-08 09:06] LABS: BLOOD UREA NITROGEN 30 MG/DL (7-18); CALCIUM LEVEL 8.4 MG/DL (8.8-10.2); CARBON DIOXIDE LEVEL 36 MEQ/L (21-32); CHLORIDE LEVEL 89 MEQ/L (98-107); CREATININE FOR GFR 1.11 MG/DL (0.70-1.30); GLOMERULAR FILTRATION RATE > 60.0 (>49); GLUCOSE, FASTING 128 MG/DL (70-100); POTASSIUM SERUM 2.8 MEQ/L (3.5-5.1); SODIUM LEVEL 136 MEQ/L (136-145)
[2020-06-08] MEDS ORDERED: KCL 10MEQ/100ML SWI (KRUN) 10 MEQ in IV 1 EA IV ONE (09:15)
[2020-06-08 09:50] VITALS: BP 108/71
[2020-06-08] MEDS ORDERED: POTASSIUM CHLORIDE 10 MEQ SR TABLET PO ONE (10:00)
[2020-06-08] MEDS: POTASSIUM CHLORIDE 10 MEQ SR TABLET PO SCH ×2 (10:34→20:55)
[2020-06-08] MEDS ORDERED: SLF 3 ML SYR IV PRN (10:45)
[2020-06-08 12:00] VITALS: BP 92/66
--- NOTE | 2020-06-08 12:38 | ECGEPIP ---
[facility] Test Date: 2020-06-08 Pat Name: PAUL SMART Department: Room: 01[facility] Gender: Male Associate Vice President: : 1955 Requested By: Rosanne Mckinnon Order Number: [id number] Reading MD: Carloz Landeros Measurements Intervals [place] Rate: 69 P: [place]: QRS: 29 QRSD: 140 T: 117 QT: 430 QTc: 460 Interpretive Statements Underlying sinus rhythm with first-degree AV block. Frequent isolated PACs occasionally blocked. Atrial triplet. Indeterminant frontal axis Right bundle branch block with primary repolarization abnormalities Slower rate but otherwise unchanged from 06/07/20 (that was incorrectly read as a atrial fibrillation). Electronically Signed on 06-08-2020 12:38:00 EST by Carloz Landeros
[2020-06-08 13:25] VITALS: BP_SYST 113; BP_SYST 114; BP_SYST 117; BP_DIAS 65; BP_DIAS 67; BP_DIAS 69
[2020-06-08] MEDS: SLF 3 ML SYR IV SCH ×2 (13:55→20:56)
--- NOTE | 2020-06-08 14:18 | IPNPDOC ---
Text Note Date of Service The patient was seen on 06/08/20. NOTE Subjective: No any acute events overnight. Patient stated that he he has been having multiple falls for past few months Objective: GENERAL APPEARANCE: Obese male, looks try HEENT: no scleral icterus, no JVD, EOMI CARDIOVASCULAR: S1S2 LUNGS: CTA ABDOMEN: soft & not tender w palpitation MUSCULOSKELETAL: no cyanosis, no swelling INTEGUMENT: no generalized pallor, facial round healed wound 7x8 cm, extensive healed wound with some mild erythema around over the right shoulder, stage III right buttock ulcer NEUROLOGICAL: cranial nerve function from 2-12 intact intact, follows commands, speech not dysarthric Assessment and plan Patient is 65 years old male with past history of CHF, non-Hodgkin lymphoma presented hospital after syncope and multiple falls Syncope Multifactorial. Patient has history of cardiac pause. He has a loop recorder. Dr. Arellano follow him. I talked to Dr. Landeros, he thinks that patient had nocturnal bradycardia with pulse secondary to obstructive sleep apnea. Also patient was admitted flow blood pressure most likely secondary to dehydration due to intensive diuresis. On physical exam patient looks dry. I will check orthostatic vital signs. Torsemide to hold Continue telemetry CHF Diastolic. There is concern for increased pulmonary hypertension. Will proceed with echo Cardiac diet Hypokalemia Replaced Continue to monitor BMP Skin lesion Unknown etiology for now Wound care consult VS,Kiirt, I+O VSKirit, I+O Laboratory Tests 06/07/20 16:24 06/08/20 07:39 Vital Signs Date Time Temp Pulse Resp B/P (MAP) Pulse Ox O2 Delivery O2 Flow Rate FiO2 06/08/20 12:00 2.0 06/08/20 12:00 97.9 84 24 92/66 (84) 96 Nasal Cannula MABEL GASCA DO Jun 08, 2020 14:18
--- NOTE | 2020-06-08 14:21 | HPE ---
HISTORY AND PHYSICAL DATE OF ADMISSION: 06/07/2020 HISTORY OF PRESENT ILLNESS: This is a very difficult historian. He comes in I believe with shortness of breath and what sounds like possible syncopal episodes. The way he describes his "syncopal episodes" is very vague. He says he has had several over the last three weeks. He does have notable bruises on his right cheek and his left wrist, which we in the emergency room assumed collaborated that story. I did go in and out of the examination room several times. At one point, I left for about an hour; and when I came back, he asked me what time it was. The time I told him was 1 hour later than the previous time I had given him and he said that he passed out for an hour. No obvious abnormalities were noted on telemetry. His electrocardiogram (EKG) I believe shows sinus rhythm with a first degree block and frequent PACs. He gives a history of congestive heart failure, which is diastolic dysfunction. I am not sure what the etiology is but does have hx of htn. He had R-CHOP chemotherapy for a large B-cell non-Hodgkin's lymphoma and no evidence of systolic dysfx on prior Echo., Denies a history of known coronary disease. I see has been on oxygen in the past at times.following I believe that bought with pneumonia. He currently does not wear oxygen and and his O2 saturation is 95%. There is a question also of history o obstructive sleep apnea (NORMA). Dr. Landeros informed me of this with whom I spoke who is goving for his farm helper, Dr Arellano. He does not wear CPAP. He does have a loop recorder and I do have strips on Loop recorder which show basically what I said above recording his 12 lead electrocardiogram (EKG). MEDICATIONS: He only states he takes toresemide and potassium supplement. ALLERGIES: No known allergies. MEDICAL HISTORY: Had a history of pneumonia, apparently associated with his treatment of his lymphoma. His recovery was prolonged. 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 The patient is a diabetic, but apparently does not take any medications. SOCIAL HISTORY: He states he is currently trying to quit tobacco. No alcohol. He walks with a cane. He is unsteady. REVIEW OF SYSTEMS: General: No fever or chills. HEENT: He appears rather foggy in his thought process. He is a very vague historian. He has got a large area of ecchymosis on his right cheek. Cardiopulmonary: He is complaining of chronic shortness of breath and complains that chronically his BNP is elevated. Gastrointestinal (GI): Negative. Genitourinary (): Negative. Musculoskeletal: He has weakness in his legs and walks with a cane. I see one reference to steroid myopathy. Vascular negative. Hematologic: His complete blood count (CBC) is abnormal. His white count is 1.7k. He has 60% neutrophils. Platelets and hemoglobin and hematocrit are fine. Vascular: Negative. No ankle swelling. His feet appear rather dirty. PHYSICAL EXAMINATION: Blood pressure is 114/55, pulse is 120, respirations are 18, O2 saturation is 95%, temperature afebrile. General appearance: 65-year-old white male, looks his stated age. HEENT: Noteworthy for the achymosis on his right cheek. No jugular venous distention (JVD). Heart was tachycardic with distant heart tones, occasionally ectropic, no murmurs. Chest is clear. Abdomen is obese, otherwise unremarkable. Extremities: Warm peripherally. His feet are unclean. No obvious edema. LABORATORY DATA: Laboratory is noteworthy for an elevated BNP. and abnormal thyroid functions and CBC with leukopenia His chest x-ray shows cardiomegaly, a loop recorder and a Port-A-Cath. Mild prominent interstitial markings, but improved from January of 2019. Electrolytes were noteworthy for potassium of 3.2, then on recheck was 5.3. Renal was normal. Sugars were elevated. The patient does have a history of diabetes. I found an A1c of 7.1. BNP was 5285 and he has got some odd thyroid studies, which need to repeat. His TSH was normal, but his free T4 was 13.7, which does not make sense to me. These need to be repeated. IMPRESSION/PLAN: 1. Reported syncope. He does have a loop recorder, but I am not sure he is having any events. He will be monitored on telemetry. He follows with Dr. Arellano. I spoke with Dr. Landeros, who is covering tonight. He is familiar with this patient and feels the patient is having bradycardic episodes at night possible econdary to untreated NORMA but this doesnt explain apparent episodes during day. We will monitor him on telemetry. 2. History of non-Hodgkin's lymphoma, treated. 3. Leukopenia as noted, but without significantly low ANC. Suspect sequela to previous chemo/NHL 4. Abnormal thyroid test as above and it needs repeat. 5. Diabetes. The patient is on no medications. His sugars are running in the mid 100s. 6. 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 7. History of congestive heart failure, reported diastolic. He has had an echocardiogram. Etiology uncertain. Suspect from HTN. Diastolic dysfx BNP elevated CXR mild congestion 8. Question obstructive sleep apnea (NORMA), this was relayed to me by Dr. Landeros. 9. Mild hypertroponinemia, possibly related to his congestive heart failure (CHF). His 12 lead electrocardiogram does not show any acute changes. He does have repolarization changes in the right precordial leads associated with a right bundle branch block. 10.Bifasicular heart block in setting of possible syncope 11 Question NORMA 12 Hx of htn MTDD
[2020-06-08 14:56] LABS: BLOOD UREA NITROGEN 34 MG/DL (7-18); CALCIUM LEVEL 8.2 MG/DL (8.8-10.2); CARBON DIOXIDE LEVEL 36 MEQ/L (21-32); CHLORIDE LEVEL 92 MEQ/L (98-107); CREATININE FOR GFR 1.05 MG/DL (0.70-1.30); GLOMERULAR FILTRATION RATE > 60.0 (>49); GLUCOSE, FASTING 108 MG/DL (70-100); POTASSIUM SERUM 3.6 MEQ/L (3.5-5.1); SODIUM LEVEL 138 MEQ/L (136-145)
[2020-06-08 15:51] VITALS: BP 103/66
--- NOTE | 2020-06-08 18:33 | ECGEPIP ---
[facility] Test Date: 2020-06-08 Pat Name: PAUL SMART Department: Room: [place] [address] Gender: Male Manager Configuration: : 1955 Requested By: MABEL GASCA Order Number: [id number] Reading MD: Carloz Landeros Measurements Intervals [place] Rate: 95 P: [place]: 200 QRS: -39 QRSD: 126 T: 124 QT: 428 QTc: 537 Interpretive Statements Multifocal atrial rhythm Indeterminate frontal axis Right bundle branch block with prominent R waves; consider RVH Increased rate from earlier the same day Electronically Signed on 06-08-2020 18:33:02 EST by Carloz Landeros
[2020-06-08 19:07] VITALS: BP 109/72
[2020-06-08 19:56] LABS: BLOOD UREA NITROGEN 31 MG/DL (7-18); CALCIUM LEVEL 7.9 MG/DL (8.8-10.2); CARBON DIOXIDE LEVEL 35 MEQ/L (21-32); CHLORIDE LEVEL 91 MEQ/L (98-107); CREATININE FOR GFR 1.03 MG/DL (0.70-1.30); GLOMERULAR FILTRATION RATE > 60.0 (>49); GLUCOSE, FASTING 116 MG/DL (70-100); POTASSIUM SERUM 3.4 MEQ/L (3.5-5.1); SODIUM LEVEL 138 MEQ/L (136-145)
[2020-06-09] VITALS: BP 101/65
[2020-06-09 01:32] LABS: BLOOD UREA NITROGEN 34 MG/DL (7-18); CALCIUM LEVEL 8.1 MG/DL (8.8-10.2); CARBON DIOXIDE LEVEL 40 MEQ/L (21-32); CHLORIDE LEVEL 93 MEQ/L (98-107); CREATININE FOR GFR 1.05 MG/DL (0.70-1.30); GLOMERULAR FILTRATION RATE > 60.0 (>49); GLUCOSE, FASTING 108 MG/DL (70-100); POTASSIUM SERUM 3.7 MEQ/L (3.5-5.1); SODIUM LEVEL 140 MEQ/L (136-145)
[2020-06-09 04:00] VITALS: BP 96/53
[2020-06-09 05:28] LABS: HEMATOCRIT 37.1 % (42.0-52.0); HEMOGLOBIN 11.3 g/dl (13.5-17.5); MEAN CORPUSCULAR HEMOGLOBIN 25.8 pg (27.0-33.0); MEAN CORPUSCULAR HGB CONC 30.5 g/dl (32.0-36.5); MEAN CORPUSCULAR VOLUME 84.7 fl (80.0-96.0); PLATELET COUNT, AUTOMATED 135 10^3/uL (150-450); RED BLOOD COUNT 4.38 10^6/uL (4.30-6.10)
[2020-06-09 05:55] LABS: BLOOD UREA NITROGEN 34 MG/DL (7-18); CALCIUM LEVEL 8.1 MG/DL (8.8-10.2); CARBON DIOXIDE LEVEL 41 MEQ/L (21-32); CHLORIDE LEVEL 91 MEQ/L (98-107); CREATININE FOR GFR 1.04 MG/DL (0.70-1.30); GLOMERULAR FILTRATION RATE > 60.0 (>49); GLUCOSE, FASTING 96 MG/DL (70-100); POTASSIUM SERUM 3.7 MEQ/L (3.5-5.1); SODIUM LEVEL 139 MEQ/L (136-145)
[2020-06-09 05:57] LABS: ATYPICAL LYMPH 5 % (0-5); EOSINOPHILS 2 % (0-3); LYMPHOCYTES 12 % (16-44); METAMYELOCYTES 1 % (0-0); MONOCYTES 10 % (0-5); NEUTROPHILS 68 % (28-66)
[2020-06-09 05:58] LABS: ANISOCYTOSIS 1+; DOHLE BODIES 1+; PLATELET ESTIMATE DECREASED (NORMAL); POLYCHROMASIA 1+
[2020-06-09] MEDS: SLF 3 ML SYR IV SCH ×3 (06:03→20:10)
[2020-06-09 07:36] VITALS: BP 111/70
[2020-06-09] MEDS: POTASSIUM CHLORIDE 10 MEQ SR TABLET PO SCH ×2 (08:37→20:10)
[2020-06-09] MEDS: FUROSEMIDE 20 MG TAB PO SCH ×2 (08:37→17:21)
[2020-06-09] MEDS ORDERED: FLUBLOK(EGG FREE)(QUAD)INFLUENZA VACC 0.5ML SYRINGE 18YRS & OLDER IM ONE (09:00)
--- NOTE | 2020-06-09 10:23 | IPNPDOC ---
Text Note Date of Service The patient was seen on 06/09/20. NOTE Subjective: No any acute events overnight. Objective: GENERAL APPEARANCE: Obese male, looks try HEENT: no scleral icterus, no JVD, EOMI CARDIOVASCULAR: S1S2 LUNGS: CTA ABDOMEN: soft & not tender w palpitation MUSCULOSKELETAL: no cyanosis, no swelling INTEGUMENT: no generalized pallor, facial round healed wound 7x8 cm, extensive healed wound with some mild erythema around over the right shoulder, stage III right buttock ulcer NEUROLOGICAL: cranial nerve function from 2-12 intact intact, follows commands, speech not dysarthric Assessment and plan Patient is 65 years old male with past history of CHF, non-Hodgkin lymphoma presented hospital after syncope and multiple falls Syncope Multifactorial. Patient has history of cardiac pause. He has a loop recorder. Dr. Arellano follow him. I talked to Dr. Landeros, he thinks that patient had nocturnal bradycardia with pulse secondary to obstructive sleep apnea. Also patient was admitted flow blood pressure most likely secondary to dehydration due to intensive diuresis. On physical exam patient looks dry. I will check orthostatic vital signs. Torsemide to hold Continue telemetry CHF Systolic. There is concern for increased pulmonary hypertension. Echo was done yesterday, I discussed results with Dr. Landeros, patient was found to have ejection fraction of 30-35% with moderate to severe pulmonary hypertension. Most likely patient will need biventricular AICD. I will discuss on Wednesday with Dr. Arellano who is his customs and border protection inspector our next step Cardiac diet Hypokalemia Replaced Continue to monitor BMP Skin lesions Skin Abrasion after a fall Or non-Hodgkin lymphoma skin presentation Wound care consult Oncologist consult Kirit WATTS, I+O VSKirit, I+O Laboratory Tests 06/08/20 13:54 06/08/20 18:48 06/09/20 00:54 06/09/20 05:14 Vital Signs Date Time Temp Pulse Resp B/P (MAP) Pulse Ox O2 Delivery O2 Flow Rate FiO2 06/09/20 07:36 97.6 93 22 111/70 (84) 98 Nasal Cannula 2.0 I&O- Last 24 Hours up to 6 AM 06/09/20 06:00 Intake Total 1440 ml Output Total 975 ml Balance 465 ml MABEL GASCA DO Jun 09, 2020 10:23
[2020-06-09 12:00] VITALS: BP 106/66
[2020-06-09 13:12] LABS: BLOOD UREA NITROGEN 31 MG/DL (7-18); CALCIUM LEVEL 8.2 MG/DL (8.8-10.2); CARBON DIOXIDE LEVEL 35 MEQ/L (21-32); CHLORIDE LEVEL 90 MEQ/L (98-107); CREATININE FOR GFR 0.95 MG/DL (0.70-1.30); GLOMERULAR FILTRATION RATE > 60.0 (>49); GLUCOSE, FASTING 106 MG/DL (70-100); POTASSIUM SERUM 3.7 MEQ/L (3.5-5.1); SODIUM LEVEL 135 MEQ/L (136-145)
[2020-06-09 15:44] VITALS: BP 105/67
[2020-06-09 19:30] LABS: BLOOD UREA NITROGEN 30 MG/DL (7-18); CALCIUM LEVEL 8.5 MG/DL (8.8-10.2); CARBON DIOXIDE LEVEL 37 MEQ/L (21-32); CHLORIDE LEVEL 91 MEQ/L (98-107); CREATININE FOR GFR 1.02 MG/DL (0.70-1.30); GLOMERULAR FILTRATION RATE > 60.0 (>49); GLUCOSE, FASTING 135 MG/DL (70-100); POTASSIUM SERUM 3.9 MEQ/L (3.5-5.1); SODIUM LEVEL 135 MEQ/L (136-145)
[2020-06-09 20:00] VITALS: BP 96/54
[2020-06-10] VITALS: BP 104/67
[2020-06-10 01:40] LABS: BLOOD UREA NITROGEN 28 MG/DL (7-18); CALCIUM LEVEL 8.3 MG/DL (8.8-10.2); CARBON DIOXIDE LEVEL 38 MEQ/L (21-32); CHLORIDE LEVEL 90 MEQ/L (98-107); CREATININE FOR GFR 0.91 MG/DL (0.70-1.30); GLOMERULAR FILTRATION RATE > 60.0 (>49); GLUCOSE, FASTING 104 MG/DL (70-100); POTASSIUM SERUM 3.9 MEQ/L (3.5-5.1); SODIUM LEVEL 133 MEQ/L (136-145)
[2020-06-10 04:00] VITALS: BP 106/69
[2020-06-10] MEDS ORDERED: CALCIUM CARBONATE 500 MG CHEW U/D PO ONE (04:30)
[2020-06-10] MEDS ORDERED: OMEPRAZOLE 20 MG CAP PO ONE (04:45)
[2020-06-10] MEDS: SLF 3 ML SYR IV SCH ×3 (05:36→22:42)
[2020-06-10 07:56] LABS: EOS % 2.1 % (0.0-3.0); HEMATOCRIT 35.9 % (42.0-52.0); HEMOGLOBIN 10.9 g/dl (13.5-17.5); LYMPH # 0.3 10^3/uL (1.5-5.0); MEAN CORPUSCULAR HEMOGLOBIN 25.6 pg (27.0-33.0); MEAN CORPUSCULAR HGB CONC 30.4 g/dl (32.0-36.5); MEAN CORPUSCULAR VOLUME 84.3 fl (80.0-96.0); MONO # 0.4 10^3/uL (0.0-0.8); MONO % 18.8 % (0.0-5.0); NEUTROPHILS # 1.2 10^3/uL (1.5-8.5); NEUTROPHILS % 64.1 % (36.0-66.0); PLATELET COUNT, AUTOMATED 125 10^3/uL (150-450); RED BLOOD COUNT 4.26 10^6/uL (4.30-6.10); WHITE BLOOD COUNT 1.9 10^3/uL (4.0-10.0)
[2020-06-10 08:00] VITALS: BP 117/77
[2020-06-10 08:12] LABS: BLOOD UREA NITROGEN 25 MG/DL (7-18); CALCIUM LEVEL 8.4 MG/DL (8.8-10.2); CARBON DIOXIDE LEVEL 38 MEQ/L (21-32); CHLORIDE LEVEL 91 MEQ/L (98-107); CREATININE FOR GFR 0.83 MG/DL (0.70-1.30); GLOMERULAR FILTRATION RATE > 60.0 (>49); GLUCOSE, FASTING 103 MG/DL (70-100); POTASSIUM SERUM 3.7 MEQ/L (3.5-5.1); SODIUM LEVEL 136 MEQ/L (136-145)
[2020-06-10] MEDS: POTASSIUM CHLORIDE 10 MEQ SR TABLET PO SCH ×2 (09:34→20:18)
[2020-06-10] MEDS: FUROSEMIDE 20 MG TAB PO SCH ×2 (09:34→17:27)
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
--- NOTE | 2020-06-10 11:43 | ECHO ---
DATE OF PROCEDURE: 06/08/2020 Age: 65 Gender: Male Height: 67 inches Weight: 183 pounds Body surface area: 1.95 m2 PATIENT LOCATION: Inpatient PCU, Room 3211. REFERRING PHYSICIAN: Geovanni Taylor DO. INDICATION: Cardiac dysrhythmia. Abnormal EKG. MEASUREMENTS: 2D Measurements: RV 4.2 cm LV 4.6 cm Septum 1.0 cm Posterior wall 1.0 cm Aortic Root 3.8 cm LA 3.4 cm LVEF 35-40% Doppler Measurements: AV 1.55 m/s LVOT 0.79 m/s Dimensionless index 0.52 MV-E 65, A 122, E/A ratio 0.5 Early mitral deceleration time 257 msec E prime medial 5.9, A prime medial 9.5, E prime lateral 8.6 Average E/E prime ratio 9/PCWP - 13 mmHg PV 0.73 m/s Pulmonary artery acceleration time 71 msec RVSP 51-56 mmHg COMMENTS: Multifocal atrial rhythm (not atrial fibrillation) with right bundle branch block. Technically challenging study in light of the patients body habitus, but diagnostically useful information was still obtained. M-mode and two-dimensional echocardiography was performed with pulse, continuous wave, color flow, and tissue Doppler studies. Normal left ventricle size and wall thickness with paradoxical septal motion suspected to be related to right ventricular pressure overload. Additionally, the patient had distal inferior and apical akinesis with at least moderate impairment of global resting systolic function. Normal left atrial size with grade 1 LV diastolic dysfunction with currently normal estimated mean left atrial pressure. Mildly dilated right heart chambers with right ventricular free wall hypokinesis and Doppler evidence of at least moderately severe pulmonary hypertension. Normal ascending aortic and aortic arch diameters with borderline dilated aortic root. Moderate aortic valvular sclerosis without stenosis or significant insufficiency. Mild degenerative changes of the mitral valve apparatus with no more than trace to very mild insufficiency. Normal appearing tricuspid valve with at least mild insufficiency. No clearly visible intracardiac mass or mural thrombus. No pericardial effusion. A preliminary report of this study was relayed to Dr. Taylor at 0714 p.m. the day the study was performed. [facility]Doug
[2020-06-10 12:00] VITALS: BP 101/65
[2020-06-10] MEDS: GASTROGRAFIN SOLUTION 30ML PO SCH ×2 (12:38→13:31)
[2020-06-10] MEDS ORDERED: ISOVUE-370 76% 100ML VIAL As Ordered ONE (13:59)
[2020-06-10 16:00] VITALS: BP_SYST 105; BP_SYST 109; BP_SYST 110; BP_DIAS 67; BP_DIAS 70
--- NOTE | 2020-06-10 16:40 | REP ---
INDICATION: malignancy. Patient gives a history of non-Hodgkin's lymphoma. History of kidney stones. COMPARISON: Comparison chest CT 13 April 2019.. TECHNIQUE: Helical scanning is acquired following the intravenous injection of 100 mL of Isovue 370. 3 mm axial images re-formatted. Coronal and sagittal MPR images are provided. FINDINGS: There are small bilateral pleural effusions right slightly larger than left. There is good opacification of the pulmonary arterial tree. No filling defect is seen to suggest pulmonary embolism. The thoracic aorta enhances homogeneously and is normal in course and caliber. There is some vascular calcification in the left coronary artery. No hilar or mediastinal mass or adenopathy is observed. No pericardial effusion is seen. There is some fissural thickening similar to the prior study. There is ar heterogeneous rounded soft tissue density in the left lower lobe posteriorly and medially. This measures 2.8 cm in greatest craniocaudal span by 2.4 cm in anteroposterior by 1.8 cm in medial to lateral dimension. Focal inflammatory consolidation suspected versus less likely neoplastic lesion. There are patchy areas of peribronchovascular soft tissue density with mixed alveolar and soft tissue nodular components. there is a fibrotic density in the left lung apex containing some evidence of calcification and this is unchanged. There is scattered areas of thickened interlobular septi consistent with interstitial edema. A loop recorder is seen in the left precordial soft tissues. Four-chamber cardiac enlargement is seen. Fatty infiltration of the liver is noted. IMPRESSION: Small bilateral pleural effusions, cardiomegaly, interstitial changes consistent with edema, CHF pattern. Stable areas of a fissural thickening and pleural 5 parenchymal fibrosis. New opacity left lower lobe inflammatory versus less likely neoplastic. Follow-up is recommended. <Electronically signed by Issa Yan > 06/10/20 [id number]
--- NOTE | 2020-06-10 16:48 | REP ---
INDICATION: malignancy. History of non-Hodgkin's lymphoma. COMPARISON: Comparison PET-CT imaging January 03, 2019.. TECHNIQUE: Helical scanning is acquired and 3 mm axial images re-formatted. Coronal and sagittal MPR images are generated. The CT contrast enhancement dose is 100 mL of intravenous Isovue 370. FINDINGS: Preliminary digital wire stitcher machine radiograph demonstrates non-specific small bowel and large bowel gas. No obstruction. There is adenopathy adjacent to the distal esophagus at the GE junction. The largest lymph node here measures 2.5 x 2.3 by 2.9 cm. There are 2 subcentimeter lymph nodes adjacent. There is celiac axis the lymphadenopathy in the upper abdomen which appears somewhat confluency. Bulky lymphadenopathy is seen superiorly adjacent to the pancreas and extending into the periportal region. This confluent adenopathy is new from the prior study and produces a fairly large mass effect compressing the infra hepatic segment of the vena cava. There is a small low-density right adrenal nodule which appears benign. No left adrenal nodule is seen. There are new retrocrural lymph nodes. Periaortic adenopathy is seen although this is mild compared to the periportal and peripancreatic juanito disease. There are scattered small bowel mesenteric lymph nodes. A minimal amount of ascites is seen. There is moderate to marked diffuse fatty infiltration of the liver. Liver is felt to be enlarged demonstrating a craniocaudal span in the midclavicular line of 23 cm. No focal hepatic lesion is seen. The spleen is mildly enlarged as well measuring 14.9 cm in greatest dimension. Pancreas itself is felt to be intact. Normal appendix is seen in the sub a [place] region. Small and large bowel loops are unremarkable. No abdominal wall defect is seen. Seminal vesicles and prostate are intact. There are a few dystrophic calcifications in the prostate. Urinary bladder is unremarkable. There is no evidence of hydronephrosis or renal mass on either side. IMPRESSION: 1. There is fairly marked confluent upper abdominal retroperitoneal and periportal lymphadenopathy. 2. Hepatomegaly with moderate to marked fatty infiltration of the liver. 3. Minimal diffuse abdominal ascites. <Electronically signed by Issa Yan > 06/10/20 [id number]
--- NOTE | 2020-06-10 16:56 | CR ---
CONSULTATION DATE: 06/10/2020 HISTORY OF PRESENT ILLNESS: Henrik Cabrera is a 65-year-old male, well known to Dr. Arellano's cardiology practice who presented on June 07, 2020 with a chief complaint of shortness of breath and possible syncopal episodes. The way the patient tells the story is that recently he has been feeling more tired and short of breath and he thinks he has been fainting. When asked whether he lost consciousness at any point in time or found himself waking up on the floor after having fallen. He reports that he has not. He is concerned that he is feeling more lightheaded and dizzy when he stands up. Recently he stopped taking his home torsemide because he feels like "it makes me very dry." He does report some chest discomfort which he denies is pain but more likely a pressure feeling. He reports that his shortness of breath has gotten worse to the point where he cannot walk across his house and he has difficulty lying flat. Otherwise, he has noticed some increased lower extremity swelling but now has improved and he denies any recent weight loss, fevers, cough or abdominal pain. In the ED, he was found to have atrial fibrillation so he was admitted to the hospitalist service. The hospitalist service called cardiology for concern for syncopal episodes at this time. What was concerning about the patient is that he had several bruises that he is unsure of how he obtained them. He has a large bruise on his right cheek and several bruises on his right shoulder. PAST MEDICAL HISTORY: Significant for diabetes mellitus type 2, history of diffuse large B-cell lymphoma, status post Rituxan and CHOP therapy in May,. His diagnosis was in May of 2018 and he was found to be in stage 4. He also received intrathecal methotrexate. He has a history of congestive heart failure secondary to [place] [employer] class 2-3 with preserved ejection fraction. Last echo in 2018 showed LVEF of 60% with mild LVH. She has a history of blood transfusions. He has a history of hypertension and a history of paroxysmal atrial fibrillation which was thought to coincide with his cancer diagnosis in May of 2018. PAST SURGICAL HISTORY: He had a circumcision in 1973. He had a loop recorder implanted on May 31, 2018. He had kidney stone surgery in 1980, a lymph node biopsy. FAMILY HISTORY: His mother has a history of emphysema and his father has no significant past medical history. ALLERGIES: He has no known allergies. SOCIAL HISTORY: He is a former smoker, used to smoke five cigarettes a day. He quit three years ago. He formerly used chewing tobacco and now he smokes one cigar daily. He denies any drug use. He lives alone in a trailer that is next door to his sister. CURRENT INPATIENT MEDICATIONS: 1. Lasix 20 mg p.o. b.i.d. 2. Omeprazole 40 mg daily. 3. Potassium 20 mEq p.o. b.i.d. REVIEW OF SYSTEMS: Generally, he feels tired, short of breath and somewhat deconditioned but no fevers, no chills, no weight loss and no night sweats. Cardiovascular: He had some chest discomfort and shortness of breath. Pulmonary: He reports shortness of breath with dyspnea on exertion and orthopnea. GI: He denies any abdominal pain, nausea, vomiting or diarrhea. : He denies any dysuria symptoms. Musculoskeletal: He had some weakness in his legs for which he needs to walker with a cane. Hematologic: He has some easy bruising that he is noticing and skin, he has several bruises on his shoulder and one large bruise on his right cheek. Neurologic: He does report feelings of lightheadedness and dizziness upon standing but no loss of sensation. PHYSICAL EXAMINATION: Temperature 97.6, pulse of 85, respiratory rate of 18. Blood pressure is 101/65 with a MAP of 77. Pulse oximetry is 98% on two liters nasal cannula. Generally, the patient is laying flat in bed. He is calm, cooperative, no acute distress, appears somewhat disheveled. HEENT exam: He is normocephalic, atraumatic. He has a large, black eschar bruise on his right cheek and no thyromegaly, no lymphadenopathy. Neck: I do not appreciate any carotid bruits. Cardiovascular: He is regular rate and rhythm with no obvious murmurs, rubs or gallops. Normal S1 and normal S2. Pulmonary: He is clear to auscultation bilaterally with no adventitious breath sounds appreciated. He has symmetric chest rise and no subcutaneous emphysema. Abdomen is obese but soft, nontender to palpation, normoactive bowel sounds, no organomegaly and no masses. Musculoskeletal: He moves all his extremities well. He has no lower extremity edema, no joint swelling. Skin: He has a very large, about 3 cm in diameter round, black eschar on his right cheek. He also has several bruises on his right shoulder and his left hand in various stages of healing. They are painful to palpation. Neuro: He has no obvious focal deficits. Psych: He has a normal mood and normal affect. LABORATORY DATA: Today he has a WBC of 1.9, hemoglobin of 10.9, hematocrit 35.9 and a platelet count of 125. On chemistries, he shows a sodium of 136, potassium of 3.7, chloride of 91, carbon dioxide of 38. BUN is 25 and creatinine is 0.83. Fasting glucose is 103. There were no other labs done. The patient underwent a CT, abdomen and pelvis and CT, chest today with reads pending. A recent echocardiogram was done on admission, shows an LVEF of 35-40%, RVSP of 51-56 mmHg, normal left atrial size with grade I left ventricular diastolic dysfunction and normal estimated mean left atrial pressure. He does have a dilated right heart chamber with right ventricular free wall hypokinesis and Doppler evidence of at least moderately severe pulmonary hypertension. In addition to that, he was found to also have aortic valvular sclerosis without stenosis or significant insufficiency as well as some degenerative changes of the mitral valve apparatus, no more than trace to very mild insufficiency. ASSESSMENT: This is a 65-year-old male who presented with shortness of breath and fatigue with concern for syncopal episodes who was found to have decreased ejection fraction and hypokinesis of left ventricular free, concerning for worsened congestive heart failure. He is currently on telemetry and has not had any adverse events. PLAN: 1. Congestive heart failure, left ventricular ejection fraction, 35-40% with right ventricular free wall hypokinesis.This is worse than his previous Echocardiogram, as described above. On physical exam, he actually appears dry and regardless of the fact that he has not been taking his torsemide at home, agree with the current regimen of oral Lasix 20 mg twice daily. 2. Paroxysmal atrial fibrillation, status post loop recorder. Dr. Arellano plans to interrogate his loop recorder this evening or tomorrow morning to find if he has had any pauses. Of note, his last check was done on January 12, 2020 and revealed 102 pauses that were greater than three seconds. The longest was seven seconds and was recorded at 4:48 a.m. At that time, the patient denied any dizziness, lightheadedness or near syncope. However, now with the patient current complaining of these things, it is worth reevaluating his loop recorder. Otherwise, inpatient telemetry has been reviewed and he has been mostly sinus rhythm in the 60s-70s with only one episode of SVT lasting a few seconds. 3. History of lymphoma: It is noted that the patient has pancytopenia on labs. I am aware that the hospitalist called for consultation with oncology which would be prudent in this situation to determine what the patient's prognosis is. Regardless of the fact that he may or may not need a defibrillator, it is important for us to know what his prognosis is moving forward. 4. History of hypertension: The patient's blood pressures have actually been soft on this admission. We will hold off on any blood pressure medication at this time. 5. Chest discomfort: The patient has had only mild elevation in troponin but no EKG changes at this time. Elevation in troponin most likely secondary to congestive heart failure with no need for escalation of care at this time. 6. History of interstitial lung disease: I have called the [facility] office to obtain this patient's records and they will be faxed to the PCU including the most recent PFTs and office note so that we can have a good handle on how bad his lung disease is at this time. Addendum MD Edelmira: I have seen and examined the patient. Loop recorder was interrogated. It revealed no events to cause LOC in last few weeks. I wonder if his skin lesions could be manifestation of lymphoma. management of CHF is complicated by low BP. Will need to get better information about status of his lung and lymphoma (relapse?) before making plans for CHF management. Otherwise agree with 's note above. [facility]
[2020-06-10 20:00] VITALS: BP 91/53
[2020-06-11] VITALS: BP 97/67
[2020-06-11 04:00] VITALS: BP 98/65
[2020-06-11] MEDS: SLF 3 ML SYR IV SCH ×3 (05:31→21:07)
[2020-06-11 05:37] LABS: BASO % 0.6 % (0.0-1.0); EOS % 2.2 % (0.0-3.0); HEMATOCRIT 34.5 % (42.0-52.0); HEMOGLOBIN 10.8 g/dl (13.5-17.5); LYMPH # 0.2 10^3/uL (1.5-5.0); LYMPH % 13.3 % (24.0-44.0); MEAN CORPUSCULAR HEMOGLOBIN 26.3 pg (27.0-33.0); MEAN CORPUSCULAR HGB CONC 31.3 g/dl (32.0-36.5); MEAN CORPUSCULAR VOLUME 83.9 fl (80.0-96.0); MONO # 0.4 10^3/uL (0.0-0.8); MONO % 19.9 % (0.0-5.0); NEUTROPHILS # 1.1 10^3/uL (1.5-8.5); NEUTROPHILS % 62.9 % (36.0-66.0); PLATELET COUNT, AUTOMATED 111 10^3/uL (150-450); RED BLOOD COUNT 4.11 10^6/uL (4.30-6.10); WHITE BLOOD COUNT 1.8 10^3/uL (4.0-10.0)
[2020-06-11 05:56] LABS: BLOOD UREA NITROGEN 18 MG/DL (7-18); CREATININE FOR GFR 0.78 MG/DL (0.70-1.30); GLUCOSE, FASTING 112 MG/DL (70-100)
[2020-06-11 05:57] LABS: CALCIUM LEVEL 8.3 MG/DL (8.8-10.2); CARBON DIOXIDE LEVEL 35 MEQ/L (21-32); CHLORIDE LEVEL 92 MEQ/L (98-107); GLOMERULAR FILTRATION RATE > 60.0 (>49); POTASSIUM SERUM 4.4 MEQ/L (3.5-5.1); SODIUM LEVEL 133 MEQ/L (136-145)
[2020-06-11 07:09] VITALS: BP 103/71
[2020-06-11] MEDS: OMEPRAZOLE 20 MG CAP PO SCH (08:30)
[2020-06-11] MEDS: POTASSIUM CHLORIDE 10 MEQ SR TABLET PO SCH ×2 (08:30→20:14)
[2020-06-11] MEDS: FUROSEMIDE 20 MG TAB PO SCH ×2 (08:31→17:14)
--- NOTE | 2020-06-11 11:40 | IPNPDOC ---
Text Note Date of Service The patient was seen on 06/11/20. NOTE Subjective: Patient denied fever, chills, nausea, vomiting, diarrhea or dysuria. No palpitations Objective: GENERAL APPEARANCE: Obese male, looks try HEENT: no scleral icterus, no JVD, EOMI CARDIOVASCULAR: S1S2 LUNGS: CTA ABDOMEN: soft & not tender w palpitation MUSCULOSKELETAL: no cyanosis, no swelling INTEGUMENT: no generalized pallor, facial round healed wound 7x8 cm, extensive healed wound with some mild erythema around over the right shoulder, stage III right buttock ulcer NEUROLOGICAL: cranial nerve function from 2-12 intact intact, follows commands, speech not dysarthric Assessment and plan Patient is 65 years old male with past history of CHF, non-Hodgkin lymphoma presented hospital after syncope and multiple falls Syncope Multifactorial. Patient has history of cardiac pause. He has a loop recorder. Dr. Arellano follows him. I talked to Dr. Landeros, he thinks that patient had nocturnal bradycardia with pulse secondary to obstructive sleep apnea. I talked to Dr. Arellano, he recommended an oncologist consult. Patient has leukopenia which can be signed of progression of his malignancy. Most likely patient will need AICD, however his life expectancy can be limited less than 1 year Continue telemetry I talked to Dr. Fairchild yesterday she recommended CT chest, abdomen and pelvis, and bone marrow biopsy. CT chest significant for Stable areas of a fissural thickening and pleural 5 parenchymal fibrosis. New opacity left lower lobe inflammatory versus less likely neoplastic CT abdomen and pelvis showed There is fairly marked confluent upper abdominal retroperitoneal and periportal lymphadenopathy.Hepatomegaly with moderate to marked fatty infiltration of the liver. Bone marrow will be done on . CHF Systolic. There is concern for increased pulmonary hypertension. Echo was done, I discussed results with Dr. Landeros, patient was found to have ejection fraction of 30-35% with moderate to severe pulmonary hypertension. Most likely patient will need biventricular AICD. Cardiac follow-up depends on non-Hodgkin diseases prognosis Cardiac diet Hypokalemia Replaced Continue to monitor BMP Stage IV DLBCL w/ Burkitt-like features, triple expressor of BCL2, BCL6, and C-MYC - w/ BM and pleural fluid involvement (05/23/2018 flow cytometry pleural fluid - small population clonal cells, phenotype C/W DLBC previously diagnosed DLBCL). Appreciate/agree with oncologist consult Pancytopenia Most likely secondary to relapse of non-Hodgkin lymphoma Patient has increased pro-calcitonin level 0.55 and possible inflammatory changes on chest CT I started empirically ceftriaxone IV Skin lesions Most likely secondary to presentation of non-Hodgkin lymphoma Wound care consult, electric sign wirer consult VS,Kirit, I+O VS, Kirit, I+O Laboratory Tests 06/11/20 05:00 Vital Signs Date Time Temp Pulse Resp B/P (MAP) Pulse Ox O2 Delivery O2 Flow Rate FiO2 06/11/20 08:00 2.0 06/11/20 07:09 97.8 87 20 103/71 (82) 95 Nasal Cannula I&O- Last 24 Hours up to 6 AM 06/11/20 06:00 Intake Total 1560 ml Output Total 1050 ml Balance 510 ml MABEL GASCA Jun 11, 2020 11:40
[2020-06-11 12:00] VITALS: BP 100/62
[2020-06-11] MEDS: cefTRIAXone SOD 2 GM in D5W MINI-BAG PLUS 50 ML IV SCH (13:45)
[2020-06-11 15:37] VITALS: BP 93/64
[2020-06-11 20:00] VITALS: BP 106/63
[2020-06-12 04:00] VITALS: BP 118/76
[2020-06-12 05:27] LABS: BASO % 0.5 % (0.0-1.0); EOS % 1.6 % (0.0-3.0); HEMATOCRIT 33.9 % (42.0-52.0); HEMOGLOBIN 10.5 g/dl (13.5-17.5); LYMPH # 0.2 10^3/uL (1.5-5.0); LYMPH % 11.1 % (24.0-44.0); MEAN CORPUSCULAR HEMOGLOBIN 25.9 pg (27.0-33.0); MEAN CORPUSCULAR VOLUME 83.5 fl (80.0-96.0); MONO # 0.3 10^3/uL (0.0-0.8); MONO % 17.9 % (0.0-5.0); NEUTROPHILS # 1.3 10^3/uL (1.5-8.5); NEUTROPHILS % 67.3 % (36.0-66.0); RED BLOOD COUNT 4.06 10^6/uL (4.30-6.10); WHITE BLOOD COUNT 1.9 10^3/uL (4.0-10.0)
[2020-06-12 05:51] LABS: BLOOD UREA NITROGEN 14 MG/DL (7-18); CALCIUM LEVEL 7.7 MG/DL (8.8-10.2); CARBON DIOXIDE LEVEL 34 MEQ/L (21-32); CHLORIDE LEVEL 94 MEQ/L (98-107); CREATININE FOR GFR 0.72 MG/DL (0.70-1.30); GLOMERULAR FILTRATION RATE > 60.0 (>49); GLUCOSE, FASTING 103 MG/DL (70-100); POTASSIUM SERUM 4.6 MEQ/L (3.5-5.1); SODIUM LEVEL 133 MEQ/L (136-145)
[2020-06-12] MEDS: SLF 3 ML SYR IV SCH ×3 (06:08→20:05)
[2020-06-12 06:21] LABS: PLATELET COUNT, AUTOMATED 95 10^3/uL (150-450)
[2020-06-12 07:55] VITALS: BP 111/74
[2020-06-12] MEDS ORDERED: LOSARTAN 50MG TABLET PO SCH (09:00)
[2020-06-12] MEDS: POTASSIUM CHLORIDE 10 MEQ SR TABLET PO SCH ×2 (09:18→20:05)
[2020-06-12] MEDS: OMEPRAZOLE 20 MG CAP PO SCH (09:19)
[2020-06-12] MEDS: LOSARTAN 25 MG TAB PO SCH (09:19)
[2020-06-12] MEDS: FUROSEMIDE 20 MG TAB PO SCH ×2 (09:19→16:03)
--- NOTE | 2020-06-12 09:30 | IPN ---
DATE: 06/11/2020 SUBJECTIVE: Mr. Cabrera was seen at the bedside this morning. He was sitting up eating breakfast. He reported that he had an "okay" night where he was able to sleep only sparingly. He denies any shortness of breath, any lightheadedness or any dizziness this morning. He is not having any loss of appetite or any other complaints this morning. We discussed the results of his CT scan that he had yesterday including the finding of lymphadenopathy in his abdomen and the fact that it poses difficult decision in regards to his cardiac workup through needing to know his prognosis for his potential cancer. He is planned to have CT-guided bone marrow biopsy today and is slated to have Wound Care consult with Dr. Flanagan. OBJECTIVE: VITALS: Temperature 97.8, pulse 87, respiratory rate 20, blood pressure 103/71, pulse oximetry 95% on 2 liters nasal cannula. GENERAL: He is sitting up at the bedside; he is calm, cooperative, no acute distress, very pleasant. HEENT: Normocephalic, atraumatic. Mucous membranes moist. NECK: Supple with no thyromegaly, no lymphadenopathy. CARDIOVASCULAR: He is regular rate and rhythm with no murmur, rub or gallop. Normal S1, normal S2. LUNGS: He has some faint crackles at the bases bilaterally, otherwise no adventitious breath sounds are appreciated. ABDOMEN: Soft, nontender to palpation. Positive bowel sounds. No organomegaly. EXTREMITIES: He has no lower extremity edema and he moves all of his extremities well. SKIN: He does have about 2 cm in diameter round black eschar on his right cheek as well as flat plaque on his right shoulder and his left forearm that have not changed in size. None of them are erythematous and appear infected. LABS: Today his white blood cell count is down to 1.8, hemoglobin is 10.8, hematocrit 34.5. Platelet count 111, down from 125 yesterday. Chemistries: Sodium 133, potassium 4.4, CO2 35, BUN 18, creatinine 0.78. His fasting glucose was 112 and calcium 8.3. IMAGING: He did have CT chest and CT abdomen/pelvis done yesterday. CT chest findings were as follows: Small bilateral pleural effusions, cardiomegaly, interstitial changes consistent with edema, CHF pattern, stable areas of visceral thickening and pleural parenchymal fibrosis, new opacity in the left lower lobe inflammatory versus less likely neoplastic. Additionally, he had CT abdomen/pelvis with the findings as follows: 1. There is fairly marked confluent upper abdominal, retroperitoneal and periportal lymphadenopathy. 2. Hepatomegaly with moderate to marked fatty infiltration of the liver. 3. Minimal diffuse abdominal ascites. I was able to obtain his last PFTs that he did at the pulmonary office which showed SVC of 50% of predicted, FEV1 50% predicted. He did have nonspecific flow rate reduction and severe diffusion impairment. ASSESSMENT: This is a 65-year-old male who presented with shortness of breath and fatigue with concern for syncopal episode, who was found to have decreased ejection fraction and hypokinesis of right ventricular free wall concerning for worsening congestive heart failure. He is currently on telemetry, has not had any adverse effects. PLAN: 1. Congestive heart failure, left ventricular ejection fraction of 35-40% with right ventricular free wall hypokinesis, diastolic dysfunction: Looking back at the patient's echos he did have an echo done approximately 6 months after he completed chemotherapy which showed normal ejection fraction. It is quite puzzling to us why his ejection fraction would drop this much at this point in time given the fact that he has not had any chemotherapy in the interim. Never the less, the patient's blood pressure is soft. Therefore, we cannot optimize him with all the appropriate medications at this time. He does continue on oral Lasix 20 mg twice daily and appears to be euvolemic on exam. 2. Paroxysmal atrial fibrillation, status post loop recorder: Dr. Arellano interrogated the loop recorder yesterday evening and found no adverse effects other than one 3 second pause. Therefore, there is nothing to corroborate his story with frequent syncopising and loss of consciousness. Never the less, we would need to probably do some further workup on his heart including possibly catheterization. However, we would need to know the prognosis of his cancer prior to doing so as his current health poses a contraindication to possible medical management; for example should he need stent can he get this given the fact that his platelets are dropping around 50,000 every single day since he has been hospitalized and would he ever be able to take any of the anticoagulation that he would need. It seems as though he would not be a candidate for stenting and not be a candidate for antiplatelet or anticoagulation therapy. Otherwise, telemetry on this admission was reviewed once again and he was found to be basically in sinus rhythm at the 60s to 70s with no events, no pauses and no obvious arrhythmias were noted. 3. History of lymphoma: We are aware that the patient is undergoing workup as directed by oncology. Would recommend oncology come and see the patient while he is inpatient. CT of the abdomen was concerning for lymphadenopathy and this is concerning as his cancer may have recurred. Given the fact that he has pancytopenia and lymphadenopathy I think it warrants urgent oncology consultation. We will wait for the results of his CT-guided biopsy today. Would recommend contacting dermatology to evaluate the skin wounds that he has as these are less likely from [place] from an electronic blanket. The aeronautical engineering teacher may be able to provide some further information regarding his diagnosis in the case that this is some type of cutaneous lymphoma. 4. History of hypertension: The patient's blood pressure has actually been soft on this admission. Hold off on any other agents at this time. 5. Chest discomfort as discussed yesterday. He did have a mild bump in his troponins which eventually normalized. No EKG changes, therefore no concern with chest discomfort at this time. 6. History of interstitial lung disease: The patient does have per last PFTs diffusion impairment and rate reduction which may cause mildly elevated RVSP on his echocardiogram which would explain his mild pulmonary hypertension. DISPOSITION: Would recommend oncology see the patient inpatient. Would recommend dermatology consult. After that time the patient could be evaluated for discharge and follow up in the outpatient setting. Addendum MD Edelmira: I have seen and examined the patient with . Agree with her dictation above. [facility]
--- NOTE | 2020-06-12 09:57 | IPNPDOC ---
Text Note Date of Service The patient was seen on 06/12/20. NOTE Subjective: No any acute events overnight. Punch skin biopsy was done yesterday Objective: GENERAL APPEARANCE: Obese male, looks try HEENT: no scleral icterus, no JVD, EOMI CARDIOVASCULAR: S1S2 LUNGS: CTA ABDOMEN: soft & not tender w palpitation MUSCULOSKELETAL: no cyanosis, no swelling INTEGUMENT: no generalized pallor, facial round healed wound 7x8 cm, extensive healed wound with some mild erythema around over the right shoulder, stage III right buttock ulcer NEUROLOGICAL: cranial nerve function from 2-12 intact intact, follows commands, speech not dysarthric Assessment and plan Patient is 65 years old male with past history of CHF, non-Hodgkin lymphoma presented hospital after syncope and multiple falls Syncope Multifactorial. Patient has history of cardiac pause. He has a loop recorder. Dr. Arellano follows him. I talked to Dr. Landeros, he thinks that patient had nocturnal bradycardia with pulse secondary to obstructive sleep apnea. I talked to Dr. Arellano, he recommended an oncologist consult. Patient has leukopenia which can be signed of progression of his malignancy. Most likely patient will need AICD, however his life expectancy can be limited less than 1 year Continue telemetry I talked to Dr. Fairchild yesterday she recommended CT chest, abdomen and pelvis, and bone marrow biopsy. CT chest significant for Stable areas of a fissural thickening and pleural 5 parenchymal fibrosis. New opacity left lower lobe inflammatory versus less likely neoplas tic CT abdomen and pelvis showed There is fairly marked confluent upper abdominal retroperitoneal and periportal lymphadenopathy.Hepatomegaly with moderate to marked fatty infiltration of the liver. Bone marrow will be done on . CHF Systolic. There is concern for increased pulmonary hypertension. Echo was done, I discussed results with Dr. Landeros, patient was found to have ejection fraction of 35-40% with moderate to severe pulmonary hypertension. Most likely patient will need biventricular AICD. Cardiac follow-up depends on non-Hodgkin diseases prognosis Cardiac diet Patient euvolemic at this time Continue Lasix IV Hypokalemia Replaced Continue to monitor BMP Stage IV DLBCL w/ Burkitt-like features, triple expressor of BCL2, BCL6, and C-MYC - w/ BM and pleural fluid involvement (05/23/2018 flow cytometry pleural fluid - small population clonal cells, phenotype C/W DLBC previously diagnosed DLBCL). Appreciate/agree with oncologist consult Pancytopenia Most likely secondary to relapse of non-Hodgkin lymphoma Patient has increased pro-calcitonin level 0.55 and possible inflammatory changes on chest CT I started empirically ceftriaxone IV Skin lesions Most likely presentation of non-Hodgkin lymphoma Wound care consult, manometer technician consult Skin biopsy was done yesterday VS,Fishbone, I+O VS, Fishbone, I+O Laboratory Tests 06/12/20 05:02 Vital Signs Date Time Temp Pulse Resp B/P (MAP) Pulse Ox O2 Delivery O2 Flow Rate FiO2 06/12/20 09:19 111/74 06/12/20 07:55 97.5 89 18 97 Nasal Cannula 2.0 I&O- Last 24 Hours up to 6 AM 06/12/20 06:00 Intake Total 360 ml Output Total 800 ml Balance -440 ml MABEL GASCA DO Jun 12, 2020 09:57
--- NOTE | 2020-06-12 10:40 | IPN ---
PROGRESS NOTE This note is on behalf of Dr. Arellano. DATE: 06/07/2020 SUBJECTIVE: Mr. Cabrera was seen at the bedside this morning. He was sleeping peacefully when we walked in the room. He denies any complaints at this time. There seemed to have been no changes from yesterday in terms of his symptomatology. He was seen by dermatology and had a wound culture and biopsy done of one of his skin lesions otherwise the plan is for him to have his bone marrow biopsy done tomorrow, the tentatively and we are still awaiting an oncology consult for this patient. He denies any chest pain, shortness of breath, nausea, vomiting, diarrhea and no palpitations. OBJECTIVE: Vitals: Temperature 97.5, pulse 89, respiratory rate 18, blood pressure 111/74, pulse oximetry 97% on 2 liters nasal cannula. General: The patient is lying flat in bed. He is calm, cooperative, in no acute distress. He does not appear uncomfortable. HEENT: Normocephalic, atraumatic. Pupils are equally round and reactive to light, extraocular movements are intact. Neck: Supple with no thyromegaly, no lymphadenopathy. Cardiovascular: Regular rate and rhythm with no murmurs, rubs or gallops, normal S1 and normal S. Pulmonary: He does have some crackles at the bases bilaterally and the posterior lung escobar otherwise no adventitious breath sounds are appreciated. Abdomen: Soft and nontender to palpation, positive bowel sounds and no organomegaly. Extremities: He does have some trace pitting edema in at bedtime lower extremities up to the knees bilaterally. His left calf does appear slightly larger than the right. Skin: He does have the 2 almost 2 cm in diameter black round eschar on his right cheek as well as several skin lesions on his right shoulder and left forearm. Psych: His mood and affect are appropriate. Neuro: He has no obvious focal deficits. LABORATORY DATA: Today his white blood cell count is stable at 1.9, hemoglobin 10.5, hematocrit 33.9, platelet count has gone down from 111 to 95. Chemistries: Sodium 133, potassium 4.6, carbon dioxide 34, BUN 14, creatinine 0.72. Calcium 7.7. IMAGING: His telemetry from overnight was reviewed and showed stable heart rate in the 70s-80s, in sinus rhythm with no pauses or SVT. ASSESSMENT: This is a 65-year-old male who presented with questionable syncope and deconditioning now found to have progressively worsening pancytopenia and abdominal lymphadenopathy concerning for recurrence of his diffuse large B cell lymphoma. Also found to have worsened cardiac function with EF measured 35-40% on echo concerning for some type of cardiomyopathy. PLAN: We will start the patient on some losartan. His blood pressure has improved somewhat so I will only start him on 25 mg daily at this time otherwise we await further work-up to determine our next steps in terms of the tissue biopsy and the bone kaibab biopsy that need to be done in which case we can determine the patient's prognosis with the help of oncology to further determine our next steps with his cardiac work-up. Should he have a good prognosis one would order a catheterization and possible stenting as the explanation of his cardiomyopathy has yet to be found. The time course of his worsened cardiac function does not fit with the time course of his chemotherapy that he had earlier last year. Otherwise we will continue to monitor him on telemetry and await further work-up in order to decide the next step. DISPOSITION: Would recommend oncology see the patient inpatient. Would recommend dermatology consult. After that time the patient could be evaluated for discharge and follow up in the outpatient setting. Addendum MD Edelmira: I have seen and examined the patient with . Agree with her note above. MTDD
[2020-06-12] MEDS: cefTRIAXone SOD 2 GM in D5W MINI-BAG PLUS 50 ML IV SCH (11:51)
[2020-06-12 11:56] VITALS: BP 118/73
[2020-06-12 12:47] VITALS: BP 94/68
--- NOTE | 2020-06-12 12:49 | CR ---
ADVANCED WOUND CARE CONSULTATION VIA TELEMEDICINE DATE: 06/11/2020 REASON FOR CONSULTATION: This is in regard to multiple cutaneous wounds. HISTORY OF PRESENT ILLNESS: This is a 65-year-old male recently admitted to the hospital for multiple cutaneous wounds involving the right cheek, right posterior shoulder, back, and left forearm. PAST MEDICAL HISTORY: Significant for a diagnosis of non-Hodgkin's lymphoma which was diagnosed in 2019. At that time, the patient presented with fever, adenopathy, and malaise and biopsies confirmed the diagnosis. He underwent chemotherapy and after being treated for one year stabilized. To the patient had no cutaneous lesions at that time. His chemotherapy was started on August 31, 2018. He was last seen by Oncology in May 2019 and has not followed up. PAST MEDICAL HISTORY: Negative for diabetes, alcohol use or smoking. PHYSICAL EXAMINATION: When seen today, the patient has multiple, full-thickness necrotic skin wounds involving the left distal forearm measuring 7.0 cm x 3.0 cm; the right cheek area measures 3.0 cm x 3.0 cm; and the right shoulder area measuring 4.0 cm x 2.0 cm. The patient also has a wound involving the inferior portion of the left buttocks and a back wound measuring 8.0 cm x 6.0 cm. LABORATORY DATA: Recent WBC was 1.1. Chest x-ray consistent with an infiltrate. The patient is afebrile at this time. He is eating satisfactorily. CLINICAL IMPRESSION: This would appear to be a recurrence of his non-Hodgkin's lymphoma with metastatic lesions to the skin. Skin biopsy is mandatory to confirm the diagnosis. I have discussed this with Dr. Garrett of Dermatology who will see the patient and perform the punch biopsies. In terms of generalized wound care, all dry eschars should be covered with a protective foam. The right posterior shoulder wound is now showing areas of liquification and necrosis. This should be debrided surgically which can be done at bedside under local anesthesia removing any devitalized necrotic tissue. Foam dressing should then be applied. I would be glad to see the patient at the clinic to assist in wound care. As mentioned, tissue biopsy and a treatment plan is mandatory at this time. Progression of his wound to the point where Surgical excision becomes the treatment is just a matter of time. Once the patient's condition is diagnosed in stabilized a plastic surgery consult is in order. Please feel free to re-consult at anytime. Is discharged if the patient wishes we will like to see him in our advanced wound care clinic on an outpatient basis. PATT
[2020-06-12] MEDS ORDERED: LIDOCAINE 1% MDV 20ML VIAL As Ordered ONE (13:47)
[2020-06-12] MEDS ORDERED: SODIUM BICARBONATE 8.4% INJ 50MEQ 50 ML VIAL As Ordered ONE (13:59)
--- NOTE | 2020-06-12 16:29 | REP ---
INDICATION: ABDOMINAL LYMPH NODE BIOPSY. COMPARISON: None. TECHNIQUE: The procedure is performed by Aby Rucker [facility], under the direct supervision of Dr. Yan. The risks and benefits of the procedure were explained to the patient and informed consent was obtained both orally and written. Directly prior to the start of the procedure, a formal timeout was done in the exam room. One of the several abnormal Tanya aortic abdominal lymph nodes was localized using CT guidance. Skin was prepped and draped in the usual sterile fashion. Six ml of buffered lidocaine was used as a local anesthetic. FINDINGS: Using CT guidance a 19/20 gauge coaxial needle biopsy system was inserted and advanced into the lymph node. Eight core biopsy samples were obtained, 4 of these were placed in RPMI solution, and the rest were placed in formalin. CT images obtained directly after the biopsy show no evidence of hematoma. After the appropriate amount of monitored convalescence the patient was discharged from the department. IMPRESSION: CT-guided Tanya aortic abdominal lymph node biopsy <Electronically signed by Aby Rucker > 06/12/20 1602 <Electronically signed by Issa Yan > 06/12/20 [id number]
--- NOTE | 2020-06-12 17:05 | CR.PDOC ---
General Date of Consultation: Jun 11, 2020 Consultation REASON FOR CONSULTATION/CHIEF COMPLAINT: cutaneous wounds HISTORY OF PRESENT ILLNESS: 65yo M admitted for syncope and falls with consultation placed to dermatology for cutaneous wounds. Patient reports this has been happening for 3-4 weeks but seems uncertain about timeline. Dusky areas appear on the skin with a red border which are becoming progressively more painful. Shortly after, the wounds begin to weep and form very dark crusts. Denies previous treatments. ALLERGIES: Please see below. HOME MEDICATIONS: Please see below. PAST MEDICAL HISTORY: 1. Non-Hodgkins lymphoma 2. Congestive heart failure PHYSICAL EXAMINATION: VITAL SIGNS: Please see below. GENERAL APPEARANCE: NAD. HEENT: no cervical LAD or axillary LAD appreciated. SKIN: large dusky/ecchymotic plaques on the right shoulder with erythematous/violaceous borders and stellate configuration with hemorrhagic we eping on the shoulder lesion. Flaccid bullae appreciated on the left forearm lesion. Large black eschar on the right cheek with smaller satellite lesion superior and inferior. LABORATORY DATA: Please see below. ASSESSMENT/PLAN: 1. Cutaneous Wounds The presenting patient is complex and his inability to review a thorough history is a diagnostic challenge. In a patient with diabetes, history of hematologic malignancy, and an absolute neutropenia - concern for deep fungal infection due to potential risk to the patient is significant. Recommend touching base with infectious disease for consideration of IV antifungal while awaiting biopsy results given potential severity of infection. My personal preference is amphotericin B liposomal but would defer to ID expertise. May consider 1-3 B glucan and and aspergilus galactomannan blood tests for confirmation. Calciphylaxis represents another potential critical diagnosis in this patient. Did not appreciate chalky white discharge. Punch biopsy performed that could help guide diagnosis but would maintain suspicion. Patient denies any exposure to tularemia or cutaneous anthrax that he is aware of. Of note, cutaneous anthrax is not a biologic weapon, but rather infection secondary to exposure to wool. Given the lack of an appropriate epidemiologic setting, very low suspicion. Wounds could represent cutaneous malignancy, but I would cover for fungal infection due to acuity while awaiting H&E and tissue culture performed today. Procedure: Punch Biopsy. [place] protocol was followed in compliance with [facility] standards. The patient was educated on the potential risks and benefits of the procedure and gave his/her informed consent. Area(s) treated with EtOH. Local anesthesia performed with <1mL of 1% lidocaine with epinephrine per site. Site(s) verified with patient via timeout utilizing patients name and date of . Biopsy/Biopsies performed. Dual site-specimen cup verification performed verbally between provider and hospital staff. Hemostasis achieved with hyfrecation or aluminum chloride. Photographs of biopsies scanned into the chart and documented in the physical exam. Closure: superficial interrupted 4-0 non-absorbable prolene sutures. Petrolatum and bandage applied. Wound care instruction addressed with patient by provider or clinic staff and wound care handout given. Two performed for H&E and for tissue culture. Bertin Garrett MD [facility] Dermat[facility] Vital Signs/I&O Vital Signs Date Time Temp Pulse Resp B/P (MAP) Pulse Ox O2 Delivery O2 Flow Rate FiO2 06/12/20 13:54 98.4 90 20 98 Nasal Cannula 2 06/12/20 12:47 94/68 (77) I&O- Last 24 Hours up to 6 AM 06/12/20 05:59 Intake Total 360 ml Output Total 800 ml Balance -440 ml Laboratory Data Labs 24H Laboratory Tests 2 06/12/20 05:02: Immature Granulocyte % (Auto) 1.6, Neutrophils (%) (Auto) 67.3H, Lymphocytes (%) (Auto) 11.1L, Monocytes (%) (Auto) 17.9H, Eosinophils (%) (Auto) 1.6, Basophils (%) (Auto) 0.5, Neutrophils # (Auto) 1.3L, Lymphocytes # (Auto) 0.2L, Monocytes # (Auto) 0.3, Eosinophils # (Auto) 0.0, Basophils # (Auto) 0.0, Nucleated Red Blood Cells % (auto) 0.0, Immature Platelet Fraction 5.0, Anion Gap 5L, Glomerular Filtration Rate > 60.0, Calcium Level 7.7L CBC/BMP Laboratory Tests 06/12/20 05:02 Microbiology Microbiology 06/07/20 Respiratory Virus Panel (PCR) (CASSIUS) - Final, Complete 06/07/20 Blood Culture - Final, Complete NO GROWTH AFTER 5 DAYS 2/5/21 Blood Culture - Final, Complete NO GROWTH AFTER 5 DAYS Allergies Coded Allergies: No Known Allergies (Unverified , 01/18/19) Home Medications Scheduled Potassium Chloride (Potassium Chloride) 20 Meq Tab.er.prt, 20 MEQ PO BID, (Reported) Torsemide (Torsemide) 20 Mg Tablet, 40 MG PO BID, (Reported) BERTIN GARRETT MD Jun 12, 2020 17:05
--- NOTE | 2020-06-12 17:08 | CR.PDOC ---
General Date of Consultation: Jun 12, 2020 Referring Provider: MABEL GASCA DO Primary Care Physician: Justus Woods MD Attending Physician: MABEL GASCA DO Consultation REASON FOR CONSULTATION: Lymphoma prognosis. 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 Treated with RCHOP chemotherapy starting 06/2018 completed 5 cycles 08/2018 and could not complete 6 cycles because of admission for pneumonia and CHF. Last PET scan on 01/03/2019 showed hypermetabolic foci clustered in the left upper lobe question inflammatory disease. No other abnormal hypermetabolic uptake. The patient was considered to be in remission at that time. Currently admitted for shortness of breath. CT chest 06/10/2020 showed small bilateral pleural effusions, cardiomegaly, inte rstitial changes consistent with edema, CHF pattern. Stable areas of a fissural thickening and pleural 5 parenchymal fibrosis. New opacity left lower lobe inflammatory versus less likely neoplastic. CT abdomen and pelvis 06/10/2020 showed fairly marked confluent upper abdominal retroperitoneal and periportal lymphadenopathy, Hepatomegaly with moderate to marked fatty infiltration of the liver and Minimal diffuse abdominal ascites. On admission, the patient was noted to be pancytopenic. Also noted to have a skin rash on face, left arm and both lower extremities. Dark skin lesion on right side of face. ALLERGIES: Please see below. HOME MEDICATIONS: Please see below. PAST MEDICAL HISTORY: Congestive heart failure. Lymphoma. History of type 2 diabetes, but resolved after losing weight FAMILY HISTORY: No family history of cancer SOCIAL HISTORY: Former smoker, having stopped smoking a month ago. Denies drinking alcohol. Lives by himself. REVIEW OF SYSTEMS: CONSTITUTIONAL: Reports Fevers, night sweats, weight loss HEENT: No headaches. No vision changes. CARDIOVASCULAR: Reports shortness of breath. No chest pain. RESPIRATORY: No cough. Reports shortness of breath. GENITOURINARY: No urinary problems. MUSCULOSKELETAL: Reports back pain. GASTROINTESTINAL: No diarrhea. No constipation, no nausea, no vomiting, no abdominal pains. SKIN: Skin rash. NEUROLOGICAL: No confusion. According to patient PSYCHIATRIC: Slight anxiety. HEMATOLOGIC/LYMPHATIC: No bleeding problems. PHYSICAL EXAMINATION: VITAL SIGNS: Please see below. GENERAL APPEARANCE: Patient awake. Lying on bed. Mild shortness of breath. On speaking. HEENT: Atraumatic. Pinkish conjunctiva. Anicteric. Rash on face. Dark skin lesion on right side of face. RESPIRATORY: Fair air entry. Wheezing. CARDIOVASCULAR: S1, S2 regular. ABDOMEN: Soft, slightly distended. No palpable masses. EXTREMITIES: Erythema on left arm and lower extremities. No pedal edema. NEUROLOGICAL: Alert, oriented 3. Moves all extremities spontaneously. PSYCHIATRIC: No anxiety. LABORATORY DATA: Please see below. 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 Treated with RCHOP chemotherapy 06/2018 - 08/2018. Completed only 5 cycles and stopped because of CHF and pneumonia. Now with suspected diffuse large B-cell lymphoma recurrence with intra-abdominal lymphadenopathy and pancytopenia. Also has skin changes. It is to be noted that he did have skin lesions associated with his lymphoma on initial diagnosis in 2019. Bone marrow aspiration and biopsy done today. Await results. Skin biopsy also done earlier today. I have recommended biopsy of intra-abdominal lymph nodes to assess for diffuse large B-cell lymphoma recurrence. I discussed with the patient that without a bone marrow transplant, life expectancy is limited for patients with relapsed diffuse large B-cell lymphoma. He is likely not a transplant candidate because of CHF. I preliminarily discussed palliative treatment options, which include rituximab/lenalidomide or ibrutinib. Definitive discussion on prognosis to be made pending biopsy results and confirmation of diffuse large B-cell lymphoma relapse. Biopsy results can be followed as an outpatient. No objection to patient being discharged after intra-abdominal lymph node biopsy with biopsy results to be followed as an outpatient as long as Dr. Arellano of cardiology deems patient stable enough for discharge. Thank you for referring Mr. Henrik Cabrera. Vital Signs/I&O Vital Signs Date Time Temp Pulse Resp B/P (MAP) Pulse Ox O2 Delivery O2 Flow Rate FiO2 06/12/20 11:56 97.4 96 19 118/73 (88) 94 Nasal Cannula 2.0 I&O- Last 24 Hours up to 6 AM 06/12/20 06:00 Intake Total 360 ml Output Total 800 ml Balance -440 ml Laboratory Data Labs 24H Laboratory Tests 2 06/12/20 05:02: Immature Granulocyte % (Auto) 1.6, Neutrophils (%) (Auto) 67.3H, Lymphocytes (%) (Auto) 11.1L, Monocytes (%) (Auto) 17.9H, Eosinophils (%) (Auto) 1.6, Basophils (%) (Auto) 0.5, Neutrophils # (Auto) 1.3L, Lymphocytes # (Auto) 0.2L, Monocytes # (Auto) 0.3, Eosinophils # (Auto) 0.0, Basophils # (Auto) 0.0, Nucleated Red Blood Cells % (auto) 0.0, Immature Platelet Fraction 5.0, Anion Gap 5L, Glomerular Filtration Rate > 60.0, Calcium Level 7.7L CBC/BMP Laboratory Tests 06/12/20 05:02 Microbiology Microbiology 06/07/20 Respiratory Virus Panel (PCR) (CASSIUS) - Final, Complete 06/07/20 Blood Culture - Preliminary, Resulted No Growth after 72 hours. All specime... 06/07/20 Blood Culture - Preliminary, Resulted No Growth after 72 hours. All specime... Allergies Coded Allergies: No Known Allergies (Unverified , 01/18/19) Home Medications Scheduled Potassium Chloride (Potassium Chloride) 20 Meq Tab.er.prt, 20 MEQ PO BID, (Reported) Torsemide (Torsemide) 20 Mg Tablet, 40 MG PO BID, (Reported) LORAINE WADE MD Jun 12, 2020 13:12
[2020-06-12] MEDS ORDERED: ACETAMINOPHEN TAB 650MG DOSE (2X325MG) PO STA (20:55)
[2020-06-12 22:00] VITALS: BP 101/67
[2020-06-12 22:15] VITALS: BP_SYST 96; BP_SYST 97; BP_DIAS 61; BP_DIAS 62
[2020-06-13] MEDS: SLF 3 ML SYR IV SCH ×3 (05:58→23:32)
[2020-06-13 06:00] VITALS: BP 102/64
[2020-06-13 06:30] VITALS: BP_SYST 102; BP_SYST 122; BP_DIAS 64; BP_DIAS 73
[2020-06-13 07:59] LABS: HEMATOCRIT 35.2 % (42.0-52.0); MEAN CORPUSCULAR HEMOGLOBIN 26.3 pg (27.0-33.0); MEAN CORPUSCULAR HGB CONC 31.3 g/dl (32.0-36.5); MEAN CORPUSCULAR VOLUME 84.2 fl (80.0-96.0); RED BLOOD COUNT 4.18 10^6/uL (4.30-6.10); WHITE BLOOD COUNT 1.8 10^3/uL (4.0-10.0)
[2020-06-13 08:02] LABS: PLATELET COUNT, AUTOMATED 91 10^3/uL (150-450)
[2020-06-13] MEDS ORDERED: LIDOCAINE 1% MDV 20ML VIAL As Ordered ONE ×2 (08:14→15:01)
[2020-06-13 08:18] LABS: BLOOD UREA NITROGEN 15 MG/DL (7-18); CALCIUM LEVEL 8.1 MG/DL (8.8-10.2); CARBON DIOXIDE LEVEL 33 MEQ/L (21-32); CHLORIDE LEVEL 97 MEQ/L (98-107); CREATININE FOR GFR 0.69 MG/DL (0.70-1.30); GLOMERULAR FILTRATION RATE > 60.0 (>49); GLUCOSE, FASTING 108 MG/DL (70-100); POTASSIUM SERUM 4.9 MEQ/L (3.5-5.1); SODIUM LEVEL 136 MEQ/L (136-145)
[2020-06-13] MEDS: OMEPRAZOLE 20 MG CAP PO SCH (09:21)
[2020-06-13] MEDS: SPIRONOLACTONE 12.5MG PER 1/2 TABLET PO SCH (09:21)
[2020-06-13] MEDS: POTASSIUM CHLORIDE 10 MEQ SR TABLET PO SCH ×2 (09:21→20:30)
[2020-06-13] MEDS: FUROSEMIDE 20 MG TAB PO SCH ×2 (09:21→17:39)
[2020-06-13] MEDS: LOSARTAN 25 MG TAB PO SCH (09:24)
[2020-06-13] MEDS: cefTRIAXone SOD 2 GM in D5W MINI-BAG PLUS 50 ML IV SCH (12:16)
[2020-06-13 14:00] VITALS: BP 115/70
--- NOTE | 2020-06-13 14:05 | IPNPDOC ---
Text Note Date of Service The patient was seen on 06/13/20. NOTE Subjective: No any acute events overnight. Patient denies fever, chills, nausea, diarrhea or dysuria Objective: GENERAL APPEARANCE: Obese male, looks try HEENT: no scleral icterus, no JVD, EOMI CARDIOVASCULAR: S1S2 LUNGS: CTA ABDOMEN: soft & not tender w palpitation MUSCULOSKELETAL: no cyanosis, no swelling INTEGUMENT: no generalized pallor, facial round healed wound 7x8 cm, extensive healed wound with some mild erythema around over the right shoulder, stage III right buttock ulcer NEUROLOGICAL: cranial nerve function from 2-12 intact intact, follows commands, speech not dysarthric Assessment and plan Patient is 65 years old male with past history of CHF, non-Hodgkin lymphoma presented hospital after syncope and multiple falls Syncope Multifactorial. Patient has history of cardiac pause. He has a loop recorder. Dr. Arellano follows him. I talked to Dr. Landeros, he thinks that patient had nocturnal bradycardia with pulse secondary to obstructive sleep apnea. I talked to Dr. Arellano, he recommended an oncologist consult. Patient has leukopenia which can be signed of progression of his malignancy. Most likely patient will need AICD, however his life expectancy can be limited less than 1 year Continue telemetry I talked to Dr. Fairchild yesterday she recommended CT chest, abdomen and pelvis, and bone marrow biopsy. CT chest significant for Stable areas of a fissural thickening and pleural 5 parenchymal fibrosis. New opacity left lower lobe inflammatory versus less likely neoplastic CT abdomen and pelvis showed There is fairly marked confluent upper abdominal retroperitoneal and periportal lymphadenopathy.Hepatomegaly with moderate to marked fatty infiltration of the liver. Bone marrow will be done in the outpatient settings. CHF Systolic. There is concern for increased pulmonary hypertension. Echo was done, I discussed results with Dr. Landeros, patient was found to have ejection fraction of 35-40% with moderate to severe pulmonary hypertension. Most likely patient will need biventricular AICD. Cardiac follow-up depends on non-Hodgkin diseases prognosis Cardiac diet Patient euvolemic at this time Continue Lasix IV Dr. Arellano recommended cardiac catheterization in the future if the patient has a good prognosis for non-Hodgkin lymphoma. According to Dr. Fairchild prognosis is guarded Hypokalemia Replaced Continue to monitor BMP Stage IV DLBCL w/ Burkitt-like features, triple expressor of BCL2, BCL6, and C-MYC - w/ BM and pleural fluid involvement (05/23/2018 flow cytometry pleural fluid - small population clonal cells, phenotype C/W DLBC previously diagnosed DLBCL). Dr. Fairchild consulted patient, she recommended abdominal lymph node biopsy. It'll be done in the outpatient settings Pancytopenia Most likely secondary to relapse of non-Hodgkin lymphoma Patient has increased pro-calcitonin level 0.55 and possible inflammatory changes on chest CT I started empirically ceftriaxone IV Skin lesions Most likely presentation of non-Hodgkin lymphoma Skin biopsy was done, await pathology report Appreciate/agree with ID consult Kirit WATTS I+O K[facility] Laboratory Tests 06/13/20 07:29 Vital Signs Date Time Temp Pulse Resp B/P (MAP) Pulse Ox O2 Delivery O2 Flow Rate FiO2 06/13/20 09:24 118/72 06/13/20 09:15 2.0 06/13/20 06:30 80 86 92 06/13/20 06:00 97.0 20 99 Nasal Cannula I&O- Last 24 Hours up to 6 AM 06/13/20 06:00 Intake Total 1737 ml Output Total 350 ml Balance 1387 ml MABEL GASCA DO Jun 13, 2020 14:04
--- NOTE | 2020-06-13 16:50 | IPN ---
PROGRESS NOTE This note is on behalf of Dr. Arellano. DATE: 06/13/20 SUBJECTIVE: The patient was seen and examined at the bedside this morning. He reports he is feeling well. 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 He continues to have soft blood pressures, but denies any lightheadedness or dizziness. I do not believe he is getting out of bed. PT/OT consult was just ordered this morning so I do not think he has been working with physical therapy. Otherwise dermatology feels as though the skin lesions that he has are possibly due to Staph infection. Oncology does seem to think it may be due to a recurrence of his cancer, but the biopsies have not been returned. The patient did have a biopsy of his abdominal lymph nodes yesterday and we will await the results of that. Otherwise the patient denies any shortness of breath, no palpitations, no nausea, no vomiting, no abdominal pain, no diarrhea at this time. OBJECTIVE: Vitals: Temperature 97, pulse 80, blood pressure 102/64, pulse oximetry 99 percent on 2 liters nasal cannula. General: He is lying in bed. He is calm, cooperative, in no acute distress, seems somewhat anxious. HEENT: Normocephalic, atraumatic. Pupils are equally round and reactive to light, extraocular movements are intact. Cardiovascular: Regular rate and rhythm with no murmurs, rubs or gallops, normal S1 and normal S2. Respiratory: He does have some faint crackles at the bases bilaterally and the posterior lobe otherwise clear to auscultation bilaterally. Abdomen: Obese, soft and nontender to palpation, positive bowel sounds and no organomegaly. Extremities: He has trace pitting edema up to his knees bilaterally. Skin: The 2-3 cm in diameter eschar on his right cheek does appear to have more erythema surrounding it and there is a secondary spot lateral to it which is smaller, but another black eschar. The skin lesions on his left forearm and right shoulder are currently covered, but appear to be draining fluid and he says they are painful. IMAGING: The patient had no new imaging yesterday. LABORATORY DATA: White blood cell 1.8, hemoglobin 11, hematocrit 35.2, platelet count is down to 91 from 95 yesterday. Chemistries: Sodium of 136, potassium 4.9, carbon dioxide 33, BUN 15, creatinine 0.69, calcium 8.1. A Galactomannan antigen and beta 1, 3D Glucan is pending. Also the biopsy of his skin and the biopsy of his lymph node are both pending as well. ASSESSMENT: This is a 65-year-old male who presented with questionable syncope and deconditioning now found to have progressively worsening pancytopenia, abdominal lymphadenopathy concerning for recurrence of his diffuse large B cell lymphoma. 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 PLAN: At this point in regards to his poor cardiac function I will start him in low dose spironolactone today as we will attempt medical management of his congestive heart failure. In the meantime we are awaiting biopsy results from the work-up that we are doing for possible recurrence of his diffuse large B cell lymphoma. It seems as though oncology believes that it is likely that it is a recurrence of the cancer, but we will know definitively when we get the biopsy returned. There is not a good option for non-cardiotoxic chemotherapy at this time and we agree with consulting with infectious disease regarding the skin wounds as we are not convinced that the skin wounds, the etiology of those are just Staph aureus. Should the patient get discharged home we will follow up with him in the office in regards to medical management of his congestive heart failure, but for now we will continue him on losartan and spironolactone. In addition we will not start him on a beta-braden given his history of pauses which may exacerbate that issue. Otherwise he appears stable from a cardiovascular standpoint and we will continue to monitor the patient. Addendum MD Edelmira: Patient was seen and examined with . I agree with her plan outlined above. MTDD
[2020-06-13] MEDS: ceFAZolin SOD 2 GM in IV 1 EA IV SCH (18:23)
[2020-06-13] MEDS: valACYclovir HCL 500 MG TAB PO SCH (21:37)
[2020-06-13 22:00] VITALS: BP 107/65
[2020-06-13] MEDS ORDERED: RAMELTEON 8 MG TAB (ROZEREM) PO ONE (23:45)
[2020-06-14] MEDS: ceFAZolin SOD 2 GM in IV 1 EA IV SCH ×3 (01:44→18:04)
[2020-06-14 06:00] VITALS: BP_SYST 105; BP_SYST 106; BP_DIAS 55
[2020-06-14] MEDS: SLF 3 ML SYR IV SCH ×2 (06:03→13:45)
[2020-06-14 06:13] LABS: HEMATOCRIT 32.3 % (42.0-52.0); MEAN CORPUSCULAR HEMOGLOBIN 25.8 pg (27.0-33.0); MEAN CORPUSCULAR VOLUME 83.2 fl (80.0-96.0); PLATELET COUNT, AUTOMATED 111 10^3/uL (150-450); RED BLOOD COUNT 3.88 10^6/uL (4.30-6.10); WHITE BLOOD COUNT 1.8 10^3/uL (4.0-10.0)
[2020-06-14 06:34] LABS: ALBUMIN 2.5 GM/DL (3.2-5.2); ALT/SGPT 18 U/L (12-78); BILIRUBIN,TOTAL 0.4 MG/DL (0.2-1.0); BLOOD UREA NITROGEN 14 MG/DL (7-18); CALCIUM LEVEL 7.6 MG/DL (8.8-10.2); CARBON DIOXIDE LEVEL 33 MEQ/L (21-32); CHLORIDE LEVEL 98 MEQ/L (98-107); CREATININE FOR GFR 0.74 MG/DL (0.70-1.30); GLOMERULAR FILTRATION RATE > 60.0 (>49); GLUCOSE, FASTING 99 MG/DL (70-100); MAGNESIUM LEVEL 1.9 MG/DL (1.8-2.4); POTASSIUM SERUM 5.1 MEQ/L (3.5-5.1); SODIUM LEVEL 136 MEQ/L (136-145); TOTAL PROTEIN 4.6 GM/DL (6.4-8.2)
[2020-06-14 06:43] LABS: ATYPICAL LYMPH 1 % (0-5); EOSINOPHILS 6 % (0-3); LYMPHOCYTES 21 % (16-44); MONOCYTES 6 % (0-5); NEUTROPHILS 66 % (28-66)
[2020-06-14 06:44] LABS: PLATELET ESTIMATE NORMAL (NORMAL)
--- NOTE | 2020-06-14 07:38 | REP ---
INDICATION: BONE MARROW BIOPSY. COMPARISON: None. TECHNIQUE: The procedure was performed under the direct supervision of Dr. Yan. The risks and benefits of the procedure were explained to the patient and informed consent was obtained. The right iliac crest was localized using CT guidance. The skin was prepped and draped in a sterile fashion. 1% lidocaine was used as a local anesthetic. Using CT guidance an 11 gauge bone biopsy system was inserted and 4 cc of marrow fluid and 1 core were obtained. The patient tolerated the procedure well and there were no immediate complications. After the appropriate amount to monitor convalescence the patient was discharged from the department. FINDINGS: None IMPRESSION: CT-guided right iliac bone marrow biopsy. <Electronically signed by Jose Juan Gilmore > 06/13/20 1615 <Electronically signed by Issa Yan > 06/13/20 [id number]
[2020-06-14] MEDS: SPIRONOLACTONE 12.5MG PER 1/2 TABLET PO SCH (08:40)
[2020-06-14] MEDS: FUROSEMIDE 20 MG TAB PO SCH ×2 (08:41→16:49)
[2020-06-14] MEDS: valACYclovir HCL 500 MG TAB PO SCH ×3 (08:41→21:19)
[2020-06-14] MEDS: OMEPRAZOLE 20 MG CAP PO SCH (08:41)
[2020-06-14] MEDS: LOSARTAN 25 MG TAB PO SCH (08:42)
[2020-06-14] MEDS: POTASSIUM CHLORIDE 10 MEQ SR TABLET PO SCH ×2 (08:45→19:54)
--- NOTE | 2020-06-14 10:02 | CR ---
CONSULTATION DATE: 06/13/2020 REASON FOR CONSULTATION: I was asked to consult by hospitalist for evaluation of necrotic lesion on the right chest, right shoulder and ulceration on the buttocks. HISTORY OF PRESENT ILLNESS: Mr. Cabrera is a 66-year-old gentleman with a history of large B-cell non-Hodgkin's lymphoma who had received five cycles of R-CHOP in 2019. His last cycle was not given because he had developed Pneumocystis pneumonia and respiratory failure. The patient had been in remission since January 2019 and follows up at [facility]. Over the past month, he had noticed increasing shortness of breath and what he describes as possible syncopal episodes. He tells me he was feeling dehydrated and had lost weight, about 45 lb, was not eating or drinking well. He had stopped taking his diuretics including torsemide and potassium. He was being followed up by Dr. Arellano for evaluation of his syncopal episode and had a loop recorder which had detected some pauses. He denied having any fever or chills, no nausea, vomiting or diarrhea.He has no cough, but does have weight loss and decreased appetite. The patient has a history of Pneumocystis pneumonia in October of 2018 and had been discharged home on oxygen but had not used it in the past year. Currently he has oxygen 2L in the room and states he is more short of breath than usual. MEDICATIONS: 1. Torsemide and potassium supplement at home. 2. Ceftriaxone 2 gm IV q.24 hours. 3. Aldactone 12.5 mg p.o. daily. 4. Losartan 25 mg p.o. daily. 5. Omeprazole 40 mg p.o. daily. 6. Furosemide 20 mg p.o. b.i.d. 7. Potassium chloride 20 mEq b.i.d. ALLERGIES: No known drug allergies. LABORATORY DATA: White count has been low since admission, between 1.8 and 2, hemoglobin 11, hematocrit 35.2, platelets 91, 67% neutrophils, 11% lymphocytes, 17% monocytes. Absolute neutrophil count is over 1000 and therefore patient is not considered neutropenic. Sodium 136, potassium 4.9, chloride 97, bicarb 33, BUN 15, creatinine 0.69, glucose 108, calcium 8.9, procalcitonin 0.55. TSH 1.030. Blood cultures, 2 sets done on 06/07 were no growth after five days. Respiratory panel was negative at 06/07 on 06/13. AFB smear culture and VZV culture were done by myself at the bedside. Surgical biopsy culture done by Dr. Garrett, left forearm on 06/11 had MSSA resistant to clindamycin, erythromycin, penicillin G. No fungal cultures were sent from the biopsy site. HSV DNA, galactomannan and beta 3 glucan are pending. PAST MEDICAL HISTORY: 1. Large B-cell lymphoma diagnosed in April of 2018, status post five cycles of R-CHOP. The patient was in remission in January of 2019. His sixth cycle was not given due to pulmonary decompensation. Bronchiectasis on chest CT done in January of 2019, had BAL with diagnosis of Pneumocystis pneumonia. 2. Respiratory failure. Admission October 14 through November 16 with respiratory failure, elevated beta 3 glucan, treated for presumptive Pneumocystis pneumonia with IV Bactrim and atovaquone, followed by Bactrim prophylaxis. Bronchoscopy done 01/2019 after that admission which confirmed Pneumocystis. 3. History of diabetes, not on medication due to weight loss. 4. Congestive heart failure. Recent echocardiogram had shown an EF of 30-50%. PAST SURGICAL HISTORY: 1. Groin biopsy for a diagnosis of lymphoma in April of 2019. 2. Bone Marrow biopsy and lymph node biopsy were done again this hospitalization. CT of abdomen and pelvis done on 06/10/2020 shows bulky adenopathy in the superior adjacent segment adjacent to the pancreas extending into the periportal region, a fairly large mass effect compressing the infrahepatic segment of the vena cava, small low density right adrenal nodule which appears benign, retrocrural lymph node, para-aortic adenopathy. Largest node measures 2.5 x 2.9 cm by the distal esophagus. Hepatomegaly with marked fatty infiltration and mild ascites. CT of chest: Small bilateral pleural effusions, cardiomegaly, interstitial changes consistent with edema, stable fissural thickening , left lower lobe, inflammatory or neoplastic. This measures 2.8 x 2.4 x 1.[address] done on 06/07/2020 with a reason of a fall shows degenerative spondylosis, multilevel foraminal stenosis and left lety-cord impingement at C5-C6. Chest x-ray: Mild cardiomegaly, loop recorder and [id number]-H-[id number], mildly prominent interstitial pattern and head CT: There is moderate parenchymal loss, white matter changes consistent with chronic age related changes. Retropolar dilatation is normal for age. PHYSICAL EXAMINATION: He is unkempt gentleman in no acute distress, pleasant, does not look septic. He has been afebrile throughout this admission with temperatures between 97 and 98, pulse 90, respirations 20, blood pressure 115/70, O2 sat 99% on two liters nasal cannula. Oropharynx no lesions, no thrush, poor dentition Heart: Normal S1, S2, no murmurs, rubs or gallops appreciated. Lungs: Decreased breath sounds at bases with a few crackles and expiratory rhonchi. Abdomen: Soft, obese, nontender, no hepatosplenomegaly. Bowel sounds normal. Extremities: +1 pitting edema bilaterally. Left leg has erythema from the ankle up to the mid-calf area which is slightly erythematous, slightly tender to touch with three areas of vasculitic-looking lesions measuring less than a cm. Right cheek has a very large eschar measuring 3 x 3 cm, dry. Right superior to that lesion there is a smaller lesion measuring 1 x 0.5 cm also with black eschar with minimal surrounding erythema. Right shoulder has a large triangular ulceration with skin peeling and purplish discoloration of the skin. The ulcer has underlying serosanguineous fluid, slightly tender to touch. Psych: Normal mood. Affect is normal. Neurologic exam: Normal. Upper and lower extremity strength: The patient is able to sit on the bedside, move around in bed without any difficulty. : In his right buttock area, he has multiple ulcerations but the largest measuring about 6 x 3 cm, looks like herpetic lesion with surrounding smaller lesion, above large one ther is a smaller erythematous measuring about 1 cm and inferiorly, multiple circular scabbed lesions, some dry that are suggestive of recent shingles outbreak that has not completely healed. Skin findings: Left forearm has a large area ulcer measuring about 10 cm x 8 cm with purulent discharge, tenderness, skin breakdown and erythema. There is also a purplish dusky discoloration of the skin overlying. IMPRESSION: Mr. Cabrera is a 65-year-old gentleman who presents with recurrent non-Hodgkin's lymphoma based on his significant intra-abdominal adenopathy and pancytopenia. He also has those skin lesions involving his cheek, right shoulder, left leg that look vasculitic DDX could be a fungal infection such as mucomycosis. However, the patient does not look sick, no fever. He does not have absolute neutropenia ANC> 1000 and he is not in DKA or has uncotrolled diabetes The patient also has a history of falls and most of the physical exam earlier on this admission which was 5-6 days ago was described as bruises and whether this is superimposed bacterial infection with Staph aureus with necrosis. Viral etiology including VZV, herpes and Pyoderma gangrenosum is also in the differential DX He definitively has shingles in the buttock area but this looks like it has been there for a while and most of the lesions have healed but he still has a very large ulceration on the right buttock which deserves to be addressed and treated with Valtrex. l Would not recommend empiric amphotericin at this time benefits outweigh risk PLAN: 1. Biopsy has already been done by Dr. Garrett but the specimen was not read by our pathologists. H&E was not done before the specimen was sent out and I do feel uncomfortable starting the patient on amphotericin without at least an H&E stain to confirm a diagnosis of fungal infection. Amphotericin is not a benign drug and is a drug which was for mucormycosis but I would not do it without at least looking at an H&E stain from a biopsy. The biopsy that has been sent probably will not be back until next week we may be able to call for stat report tomorrow. Aspergillus and beta 3 glucan have been sent but are not produced by mucormycosis , also these take 5-7 days to be back. 2. For Staph aureus infection, I would suggest treating him with IV cefazolin at 2 gm every 8 hours instead of Rocephin which was discontinued. 3. Viral cultures and HSV and VZV PCR were sent from the buttock area and arm and we will start Valtrex 1 gm p.o. t.i.d. 4.The case has been discussed at length with Dr. Garrett and Dr. Taylor who agree with the plan. Dr. Garrett will be doing another biopsy tomorrow and will discuss with pathology before I consider empiric IV amphotericin. MTDD
--- NOTE | 2020-06-14 11:40 | IPNPDOC ---
Text Note Date of Service The patient was seen on 06/14/20. NOTE Subjective: Patient resting comfortably on the bed. Patient denied fever, chi lls, nausea, vomiting, chest pain or palpitations Objective: GENERAL APPEARANCE: Obese male, looks try HEENT: no scleral icterus, no JVD, EOMI CARDIOVASCULAR: S1S2 LUNGS: CTA ABDOMEN: soft & not tender w palpitation MUSCULOSKELETAL: no cyanosis, no swelling INTEGUMENT: no generalized pallor, facial round healed wound 7x8 cm, extensive with black eschar with some mild erythema around over the right shoulder, stage III right buttock ulcer, Left forearm has a large area ulcer measuring about 10 cm x 8 cm with purulent discharge, tenderness, skin breakdown and erythema. Some discoloration of right lower extremity toes NEUROLOGICAL: cranial nerve function from 2-12 intact intact, follows commands, speech not dysarthric Assessment and plan Patient is 65 years old male with past history of CHF, non-Hodgkin lymphoma presented hospital after syncope and multiple falls Syncope Multifactorial. Patient has history of cardiac pause. He has a loop recorder. Dr. Arellano follows him. I talked to Dr. Landeros, he thinks that patient had nocturnal bradycardia with pulse secondary to obstructive sleep apnea. I talked to Dr. Arellano, he recommended an oncologist consult. Patient has leukopenia which can be signed of progression of his malignancy. Most likely patient will need AICD, however his life expectancy can be limited less than 1 year Continue telemetry I talked to Dr. Fairchild yesterday she recommended CT chest, abdomen and pelvis, and bone marrow biopsy. CT chest significant for Stable areas of a fissural thickening and pleural 5 parenchymal fibrosis. New opacity left lower lobe inflammatory versus less likely neoplastic CT abdomen and pelvis showed There is fairly marked confluent upper abdominal retroperitoneal and periportal lymphadenopathy. Hepatomegaly with moderate to marked fatty infiltration of the liver. Bone marrow was done yesterday. Await result CHF Systolic. There is concern for increased pulmonary hypertension. Echo was done, I discussed results with Dr. Landeros, patient was found to have ejection fraction of 35-40% with moderate to severe pulmonary hypertension. Most likely patient will need biventricular AICD. Cardiac follow-up depends on non-Hodgkin diseases prognosis Cardiac diet Patient euvolemic at this time Continue Lasix IV Dr. Arellano recommended cardiac catheterization in the future if the patient has a good prognosis for non-Hodgkin lymphoma. According to Dr. Fairchild prognosis is guarded Hypokalemia Resolved Continue to monitor BMP Stage IV DLBCL w/ Burkitt-like features, triple expressor of BCL2, BCL6, and C-MYC - w/ BM and pleural fluid involvement (05/23/2018 flow cytometry pleural fluid - small population clonal cells, phenotype C/W DLBC previously diagnosed DLBCL). Dr. Fairchild consulted patient, she recommended abdominal lymph node biopsy. It'll be done in the outpatient settings Pancytopenia Most likely secondary to relapse of non-Hodgkin lymphoma Patient has increased pro-calcitonin level 0.55 and possible inflammatory change s on chest CT Patient was treated with ceftriaxone empirically, now we continue cefazolin Skin lesions Most likely presentation of non-Hodgkin lymphoma Skin biopsy was done, await pathology report Aspergillus and beta [address] Yu recommended Doppler ultrasound of both extremities changed ceftriaxone IV to cefazolin IV. Viral cultures and HSV and VZV PCR were sent from the buttock area and arm. start Valtrex 1 gm p.o. t.i.d. VS,Fishbone, I+O VS, Fishbone, I+O Laboratory Tests 06/14/20 05:51 Vital Signs Date Time Temp Pulse Resp B/P (MAP) Pulse Ox O2 Delivery O2 Flow Rate FiO2 06/14/20 08:42 109/68 06/14/20 06:00 98.4 89 20 99 Nasal Cannula 2.0 I&O- Last 24 Hours up to 6 AM 06/14/20 06:00 Intake Total 2500 ml Output Total 375 ml Balance 2125 ml MABEL GASCA DO Jun 14, 2020 11:40
[2020-06-14 14:00] VITALS: BP 90/50
[2020-06-14 18:00] VITALS: BP 98/62
[2020-06-14 22:00] VITALS: BP 98/61
[2020-06-15] MEDS: SLF 3 ML SYR IV SCH ×4 (00:19→21:07)
[2020-06-15] MEDS: ceFAZolin SOD 2 GM in IV 1 EA IV SCH ×3 (03:04→17:13)
[2020-06-15 06:00] VITALS: BP 100/62
[2020-06-15 06:25] LABS: APPEARANCE, URINE CLEAR (CLEAR); BACTERIA, URINE AUTO NEGATIVE (NEGATIVE); BILIRUBIN, URINE AUTO NEGATIVE (NEGATIVE); BLOOD, URINE BLOOD NEGATIVE (NEGATIVE); COLOR, URINE YELLOW (YELLOW); GLUCOSE, URINE (UA) AUTO NEGATIVE (NEGATIVE); KETONE, URINE AUTO TRACE mg/dL (NEGATIVE); LEUKOCYTE ESTERASE, URINE AUTO NEGATIVE (NEGATIVE); NITRITE, URINE AUTO NEGATIVE (NEGATIVE); PROTEIN, URINE AUTO NEGATIVE (NEGATIVE); RBC, URINE AUTO 1 /HPF (0-3); SPECIFIC GRAVITY URINE AUTO 1.026 (1.002-1.035); SQUAMOUS EPITHELIAL CELL UR AU 0 /HPF (0-6); UROBILINOGEN, URINE AUTO 0.2 mg/dL (0.0-2.0); WBC, URINE AUTO 1 /HPF (0-3)
[2020-06-15 06:27] LABS: BASO % 0.5 % (0.0-1.0); EOS # 0.1 10^3/uL (0.0-0.5); EOS % 3.7 % (0.0-3.0); HEMATOCRIT 32.1 % (42.0-52.0); HEMOGLOBIN 9.8 g/dl (13.5-17.5); LYMPH # 0.2 10^3/uL (1.5-5.0); LYMPH % 9.6 % (24.0-44.0); MEAN CORPUSCULAR HEMOGLOBIN 25.6 pg (27.0-33.0); MEAN CORPUSCULAR HGB CONC 30.5 g/dl (32.0-36.5); MEAN CORPUSCULAR VOLUME 83.8 fl (80.0-96.0); MONO # 0.3 10^3/uL (0.0-0.8); MONO % 18.2 % (2.0-8.0); NEUTROPHILS # 1.3 10^3/uL (1.5-8.5); NEUTROPHILS % 67.5 % (36.0-66.0); PLATELET COUNT, AUTOMATED 134 10^3/uL (150-450); RED BLOOD COUNT 3.83 10^6/uL (4.30-6.10); WHITE BLOOD COUNT 1.9 10^3/uL (4.0-10.0)
[2020-06-15 06:51] LABS: ALBUMIN 2.4 GM/DL (3.2-5.2); ALT/SGPT 18 U/L (12-78); BILIRUBIN,TOTAL 0.3 MG/DL (0.2-1.0); BLOOD UREA NITROGEN 12 MG/DL (7-18); CALCIUM LEVEL 7.6 MG/DL (8.8-10.2); CARBON DIOXIDE LEVEL 32 MEQ/L (21-32); CHLORIDE LEVEL 95 MEQ/L (98-107); CREATININE FOR GFR 0.76 MG/DL (0.70-1.30); GLOMERULAR FILTRATION RATE > 60.0 (>49); GLUCOSE, FASTING 102 MG/DL (70-100); POTASSIUM SERUM 4.9 MEQ/L (3.5-5.1); SODIUM LEVEL 135 MEQ/L (136-145); TOTAL PROTEIN 4.7 GM/DL (6.4-8.2)
[2020-06-15 09:00] VITALS: BP 88/48
[2020-06-15] MEDS: LOSARTAN 25 MG TAB PO SCH (09:00)
[2020-06-15] MEDS: valACYclovir HCL 500 MG TAB PO SCH ×3 (09:27→21:05)
[2020-06-15] MEDS: POTASSIUM CHLORIDE 10 MEQ SR TABLET PO SCH ×2 (09:27→21:06)
[2020-06-15] MEDS: SPIRONOLACTONE 12.5MG PER 1/2 TABLET PO SCH (09:27)
[2020-06-15] MEDS: FUROSEMIDE 20 MG TAB PO SCH ×2 (09:27→17:13)
[2020-06-15] MEDS: OMEPRAZOLE 20 MG CAP PO SCH (09:27)
[2020-06-15] MEDS ORDERED: COZA1TAB PO (09:52)
[2020-06-15] MEDS ORDERED: VALA500T5 PO (09:52)
[2020-06-15] MEDS ORDERED: ALDA25TA2 PO (09:52)
[2020-06-15] MEDS ORDERED: CEPH500C PO (09:52)
[2020-06-15] MEDS ORDERED: OMEP-218 PO (09:52)
[2020-06-15] MEDS ORDERED: FURO20TA2 PO (09:52)
--- NOTE | 2020-06-15 10:51 | IPNPDOC ---
Text Note Date of Service The patient was seen on 06/15/20. NOTE Subjective: Patient complains of generalized weakness, no fever, no chills. Objective: GENERAL APPEARANCE: Obese male HEENT: no scleral icterus, no JVD, EOMI CARDIOVASCULAR: S1S2 LUNGS: CTA ABDOMEN: soft & not tender w palpitation MUSCULOSKELETAL: no cyanosis, no swelling INTEGUMENT: no generalized pallor, facial round healed wound 7x8 cm, extensive with black eschar with some mild erythema around over the right shoulder, stage III right buttock ulcer, Left forearm has a large area ulcer measuring about 10 cm x 8 cm with purulent discharge, tenderness, skin breakdown and erythema. Some discoloration of right lower extremity toes NEUROLOGICAL: cranial nerve function from 2-12 intact intact, follows commands, speech not dysarthric Assessment and plan Patient is 65 years old male with past history of CHF, non-Hodgkin lymphoma presented hospital after syncope and multiple falls Syncope Multifactorial. Patient has history of cardiac pause. He has a loop recorder. Doug Arellano follows him. I talked to Dr. Landeros, he thinks that patient had nocturnal bradycardia with pulse secondary to obstructive sleep apnea. I talked to Dr. Arellano, he recommended an oncologist consult. Patient has leukopenia which can be signed of progression of his malignancy. Most likely patient will need AICD, however his life expectancy can be limited less than 1 year Continue telemetry I talked to Dr. Fairchild yesterday she recommended CT chest, abdomen and pelvis, and bone marrow biopsy. CT chest significant for Stable areas of a fissural thickening and pleural 5 parenchymal fibrosis. New opacity left lower lobe inflammatory versus less likely neoplastic CT abdomen and pelvis showed There is fairly marked confluent upper abdominal retroperitoneal and periportal lymphadenopathy. Hepatomegaly with moderate to marked fatty infiltration of the liver. Bone marrow was done.. Await result CHF Systolic. There is concern for increased pulmonary hypertension. Echo was done, I discussed results with Dr. Landeros, patient was found to have ejection fraction of 35-40% with moderate to severe pulmonary hypertension. Most likely patient will need biventricular AICD. Cardiac follow-up depends on non-Hodgkin diseases prognosis Cardiac diet Patient euvolemic at this time Continue Lasix by mouth, added losartan and spironolactone by cardiology team Dr. Arellano recommended cardiac catheterization in the future if the patient has a good prognosis for non-Hodgkin lymphoma. According to Dr. Fairchild prognosis is guarded Hypokalemia Resolved Continue to monitor BMP Stage IV DLBCL w/ Burkitt-like features, triple expressor of BCL2, BCL6, and C-MYC - w/ BM and pleural fluid involvement (05/23/2018 flow cytometry pleural fluid - small population clonal cells, phenotype C/W DLBC previously diagnosed DLBCL). Dr. Fairchild consulted patient, she recommended abdominal lymph node biopsy, It wa s done on06/13/20. Await result Pancytopenia Most likely secondary to relapse of non-Hodgkin lymphoma Patient has increased pro-calcitonin level 0.55 and possible inflammatory changes on chest CT Patient was treated with ceftriaxone empirically, now we continue cefazolin Skin lesions/ cellulitis/breast colitis Most likely presentation of non-Hodgkin lymphoma Skin biopsy was done, await pathology report Aspergillus and beta [address] Yu recommended Doppler ultrasound of both extremities changed ceftriaxone IV to cefazolin IV secondary to surrounding cellulitis Viral cultures and HSV and VZV PCR were sent from the buttock area and arm. start Valtrex 1 gm p.o. t.i.d. Punch biopsy showed preliminary result of vasculitis VS,Lisae, I+O VS, Fishbone, I+O Laboratory Tests 06/15/20 05:47 Vital Signs Date Time Temp Pulse Resp B/P (MAP) Pulse Ox O2 Delivery O2 Flow Rate FiO2 06/15/20 09:00 88/48 06/15/20 06:00 97.3 90 18 100 Nasal Cannula 2.0 I&O- Last 24 Hours up to 6 AM 06/15/20 06:00 Intake Total 1600 ml Output Total 925 ml Balance 675 ml MABEL GASCA DO Jun 15, 2020 10:50
[2020-06-15 12:46] LABS: COMPLEMENT C3 69 MG/DL (90-180); COMPLEMENT C4 30 MG/DL (10-40); RHEUMATOID FACTOR QUANT < 10.0 IU/ML (<15.0)
[2020-06-15 13:26] VITALS: BP 119/66
[2020-06-15 22:00] VITALS: BP 121/73
[2020-06-16] MEDS: SLF 3 ML SYR IV SCH ×3 (02:43→21:27)
[2020-06-16] MEDS: ceFAZolin SOD 2 GM in IV 1 EA IV SCH ×3 (02:43→17:29)
[2020-06-16 06:00] VITALS: BP 121/74
[2020-06-16 06:42] LABS: BASO % 1.3 % (0.0-1.0); EOS # 0.1 10^3/uL (0.0-0.5); EOS % 2.6 % (0.0-3.0); HEMATOCRIT 32.3 % (42.0-52.0); HEMOGLOBIN 9.9 g/dl (13.5-17.5); LYMPH # 0.2 10^3/uL (1.5-5.0); LYMPH % 7.5 % (24.0-44.0); MEAN CORPUSCULAR HEMOGLOBIN 25.6 pg (27.0-33.0); MEAN CORPUSCULAR HGB CONC 30.7 g/dl (32.0-36.5); MEAN CORPUSCULAR VOLUME 83.7 fl (80.0-96.0); MONO # 0.5 10^3/uL (0.0-0.8); MONO % 21.1 % (2.0-8.0); NEUTROPHILS # 1.5 10^3/uL (1.5-8.5); NEUTROPHILS % 67.1 % (36.0-66.0); PLATELET COUNT, AUTOMATED 132 10^3/uL (150-450); RED BLOOD COUNT 3.86 10^6/uL (4.30-6.10); WHITE BLOOD COUNT 2.3 10^3/uL (4.0-10.0)
[2020-06-16 06:59] LABS: ALBUMIN 2.3 GM/DL (3.2-5.2); ALT/SGPT 18 U/L (12-78); BILIRUBIN,TOTAL 0.4 MG/DL (0.2-1.0); BLOOD UREA NITROGEN 10 MG/DL (7-18); CALCIUM LEVEL 7.6 MG/DL (8.8-10.2); CARBON DIOXIDE LEVEL 31 MEQ/L (21-32); CHLORIDE LEVEL 95 MEQ/L (98-107); CREATININE FOR GFR 0.66 MG/DL (0.70-1.30); GLOMERULAR FILTRATION RATE > 60.0 (>49); GLUCOSE, FASTING 93 MG/DL (70-100); MAGNESIUM LEVEL 1.9 MG/DL (1.8-2.4); POTASSIUM SERUM 4.8 MEQ/L (3.5-5.1); SODIUM LEVEL 132 MEQ/L (136-145); TOTAL PROTEIN 4.5 GM/DL (6.4-8.2)
[2020-06-16] MEDS: OMEPRAZOLE 20 MG CAP PO SCH (09:34)
[2020-06-16] MEDS: valACYclovir HCL 500 MG TAB PO SCH ×3 (09:34→21:26)
[2020-06-16] MEDS: POTASSIUM CHLORIDE 10 MEQ SR TABLET PO SCH ×2 (09:35→21:26)
[2020-06-16] MEDS: FUROSEMIDE 20 MG TAB PO SCH ×2 (09:35→17:29)
--- NOTE | 2020-06-16 10:08 | IPNPDOC ---
Text Note Date of Service The patient was seen on 06/16/20. NOTE Subjective: I had conversation with patient about the prognosis of lymphoma and life expectancy. Patient agreed to continue treatment with oncologist in the outpatient settings. Objective: GENERAL APPEARANCE: Obese male HEENT: no scleral icterus, no JVD, EOMI CARDIOVASCULAR: S1S2 LUNGS: CTA ABDOMEN: soft & not tender w palpitation MUSCULOSKELETAL: no cyanosis, no swelling INTEGUMENT: no generalized pallor, facial round healed wound 7x8 cm, extensive with black eschar with some mild erythema around over the right shoulder, stage III right buttock ulcer, Left forearm has a large area ulcer measuring about 10 cm x 8 cm with purulent discharge, tenderness, skin breakdown and erythema. Some discoloration of right lower extremity toes NEUROLOGICAL: cranial nerve function from 2-12 intact intact, follows commands, speech not dysarthric Assessment and plan Patient is 65 years old male with past history of CHF, non-Hodgkin lymphoma presented hospital after syncope and multiple falls Syncope Multifactorial. Patient has history of cardiac pause. He has a loop recorder. Dr. Arellano follows him. I talked to Dr. Landeros, he thinks that patient had nocturnal bradycardia with pulse secondary to obstructive sleep apnea. I talked to Dr. Arellano, he recommended an oncologist consult. Patient has leukopenia which can be signed of progression of his malignancy. Most likely guillermina parham will need AICD, however his life expectancy can be limited less than 1 year Continue telemetry I talked to Dr. Fairchild yesterday she recommended CT chest, abdomen and pelvis, and bone marrow biopsy. CT chest significant for Stable areas of a fissural thickening and pleural 5 parenchymal fibrosis. New opacity left lower lobe inflammatory versus less likely neoplastic CT abdomen and pelvis showed There is fairly marked confluent upper abdominal retroperitoneal and periportal lymphadenopathy. Hepatomegaly with moderate to marked fatty infiltration of the liver. Bone marrow was done. Await result CHF Systolic. There is concern for increased pulmonary hypertension. Echo was done, I discussed results with Dr. Landeros, patient was found to have ejection fraction of 35-40% with moderate to severe pulmonary hypertension. Most likely patient will need biventricular AICD. Cardiac follow-up depends on non-Hodgkin diseases prognosis Cardiac diet Patient euvolemic at this time Continue Lasix by mouth, stopped losartan and spironolactone due to hypotension yesterday Dr. Arellano recommended cardiac catheterization in the future if the patient has a good prognosis for non-Hodgkin lymphoma. According to Dr. Fairchild prognosis is guarded Hypokalemia Resolved Continue to monitor BMP Stage IV DLBCL w/ Burkitt-like features, triple expressor of BCL2, BCL6, and C-MYC - w/ BM and pleural fluid involvement (05/23/2018 flow cytometry pleural fluid - small population clonal cells, phenotype C/W DLBC previously diagnosed DLBCL). Dr. Fairchild consulted patient, she recommended abdominal lymph node biopsy, It was done on06/13/20. Await result Pancytopenia Most likely secondary to relapse of non-Hodgkin lymphoma Patient has increased pro-calcitonin level 0.55 and possible inflammatory changes on chest CT Patient was treated with ceftriaxone empirically, now we continue cefazolin Skin lesions/ cellulitis/breast colitis Most likely presentation of non-Hodgkin lymphoma Skin biopsy was done, await pathology report Aspergillus and beta [address] Yu recommended Doppler ultrasound of both extremities changed ceftriaxone IV to cefazolin IV secondary to surrounding cellulitis Viral cultures and HSV and VZV PCR were sent from the buttock area and arm. start Valtrex 1 gm p.o. t.i.d. Punch biopsy showed preliminary result of vasculitis VS,Fishkristye, I+O VS, Fishbone, I+O Laboratory Tests 06/16/20 05:39 Vital Signs Date Time Temp Pulse Resp B/P (MAP) Pulse Ox O2 Delivery O2 Flow Rate FiO2 06/16/20 06:00 97.6 89 20 121/74 (90) 99 Nasal Cannula 2.0 I&O- Last 24 Hours up to 6 AM 06/16/20 06:00 Intake Total 2520 ml Output Total 800 ml Balance 1720 ml MABEL GASCA DO Jun 16, 2020 10:08
[2020-06-16] MEDS ORDERED: SENNA 8.6 MG TAB (SENOKOT) PO PRN (13:15)
[2020-06-16 13:23] VITALS: BP 120/74
[2020-06-16] MEDS ORDERED: BISACODYL 5 MG TAB PO ONE (14:00)
[2020-06-16] MEDS ORDERED: BISACODYL 5 MG TAB PO PRN (21:00)
[2020-06-16 22:00] VITALS: BP 119/70
[2020-06-17] MEDS: SLF 3 ML SYR IV SCH (01:49)
[2020-06-17] MEDS: ceFAZolin SOD 2 GM in IV 1 EA IV SCH ×2 (01:49→09:12)
--- NOTE | 2020-06-17 02:10 | REP ---
INDICATION: evaluate flow venous and arterial. COMPARISON: None. TECHNIQUE: Real time fields scale and color Doppler evaluation of the bilateral lower extremity arterial vasculature using linear high frequency transducer. FINDINGS: Fields scale and color images demonstrate moderate amounts of calcified noncompressible atheromatous plaquing without focal stenosis/narrowing or occlusion. Doppler interrogation demonstrates normal triphasic arterial wave forms and velocities bilaterally to the levels of the distal posterior tibial and anterior tibial arteries which are monophasic in wave pattern. RAINE indices could not be obtained due to calcified noncompressibility of the vessels. Peak systolic velocities (cm/sec) Common femoral artery: Right 64; Left 101 Profunda femoris: Right 99; Left 72 SFA (proximal): Right 70; Left 90 SFA (mid): Right 80; Left 98 SFA (distal): Right 77; Left 93 Popliteal artery: Right 72/82; Left 78/62 CLARISSA (prox.): Right 100; Left 88 Tibioperoneal trunk: Right 47; Left 39 SUPERINTENDENT ELECTRIC POWER (prox.): Right 72; Left 55 SUPERINTENDENT ELECTRIC POWER (distal): Right 73; Left 90 CLARISSA (distal): Right 84; Left 101 IMPRESSION: Moderate bilateral calcified atheromatous changes without focal areas of narrowing/stenosis or occlusion. <Electronically signed by Bill Angel > 06/17/20 0323
--- NOTE | 2020-06-17 02:11 | REP ---
INDICATION: peripheral vascular diseases arterial and venous COMPARISON: None. TECHNIQUE: Fields scale and color Doppler evaluation of the bilateral lower extremities using linear high frequency transducer. FINDINGS: Ultrasound examination of the right and left lower extremity deep venous structures from the common femoral vein to the popliteal vein demonstrates normal compressibility flow and wave patterns in response to respiration and augmentation. There is no evidence for deep venous thrombosis. IMPRESSION: No evidence for deep venous thrombosis. <Electronically signed by Bill Angel > 06/17/20 0209
[2020-06-17 06:00] VITALS: BP 118/71
[2020-06-17 06:19] LABS: BASO % 0.5 % (0.0-1.0); EOS % 2.2 % (0.0-3.0); HEMATOCRIT 31.1 % (42.0-52.0); HEMOGLOBIN 9.6 g/dl (13.5-17.5); LYMPH # 0.2 10^3/uL (1.5-5.0); LYMPH % 9.2 % (24.0-44.0); MEAN CORPUSCULAR HEMOGLOBIN 25.3 pg (27.0-33.0); MEAN CORPUSCULAR HGB CONC 30.9 g/dl (32.0-36.5); MEAN CORPUSCULAR VOLUME 81.8 fl (80.0-96.0); MONO # 0.3 10^3/uL (0.0-0.8); MONO % 17.8 % (2.0-8.0); NEUTROPHILS # 1.3 10^3/uL (1.5-8.5); NEUTROPHILS % 69.2 % (36.0-66.0); PLATELET COUNT, AUTOMATED 142 10^3/uL (150-450); WHITE BLOOD COUNT 1.9 10^3/uL (4.0-10.0)
[2020-06-17 06:42] LABS: ALBUMIN 2.4 GM/DL (3.2-5.2); ALT/SGPT 17 U/L (12-78); BILIRUBIN,TOTAL 0.5 MG/DL (0.2-1.0); BLOOD UREA NITROGEN 10 MG/DL (7-18); CALCIUM LEVEL 7.9 MG/DL (8.8-10.2); CARBON DIOXIDE LEVEL 32 MEQ/L (21-32); CHLORIDE LEVEL 96 MEQ/L (98-107); CREATININE FOR GFR 0.69 MG/DL (0.70-1.30); GLOMERULAR FILTRATION RATE > 60.0 (>49); GLUCOSE, FASTING 104 MG/DL (70-100); MAGNESIUM LEVEL 1.8 MG/DL (1.8-2.4); POTASSIUM SERUM 4.6 MEQ/L (3.5-5.1); SODIUM LEVEL 131 MEQ/L (136-145); TOTAL PROTEIN 4.9 GM/DL (6.4-8.2)
[2020-06-17] MEDS: OMEPRAZOLE 20 MG CAP PO SCH (09:11)
[2020-06-17] MEDS: valACYclovir HCL 500 MG TAB PO SCH (09:11)
[2020-06-17] MEDS: FUROSEMIDE 20 MG TAB PO SCH (09:11)
[2020-06-17] MEDS: POTASSIUM CHLORIDE 10 MEQ SR TABLET PO SCH (09:11)
[2020-06-17] MEDS ORDERED: VALA500T5 PO (09:59)
[2020-06-17 10:46] LABS: HEPATITIS B SURFACE ANTIGEN NEGATIVE (NEGATIVE)
[2020-06-17 11:15] LABS: HEPATITIS C VIRUS ABY INDEX 0.1 INDEX (<0.8); HIV 1&2 SCREEN CENTAUR NEGATIVE (NEGATIVE)
--- NOTE | 2020-06-17 12:20 | DS.PDOC ---
Discharge Summary General Date of Admission Jun 07, 2020 at 21:05 Date of Discharge 06/17/20 Discharge Summary PROCEDURES PERFORMED DURING STAY: [None]. ADMITTING DIAGNOSES: Syncope CHF Hypokalemia Stage IV DLBCL Pancytopenia Skin lesions/ cellulitis Vasculitis Herpes zoster DISCHARGE DIAGNOSES: Syncope CHF Hypokalemia Stage IV DLBCL Pancytopenia Skin lesions/ cellulitis Vasculitis Herpes zoster COMPLICATIONS/CHIEF COMPLAINT: Congestive Heart Failure. HISTORY OF PRESENT ILLNESS: Patient is 65 years old male with past history of CHF, non-Hodgkin lymphoma presented hospital after syncope and multiple falls HOSPITAL COURSE: During the hospital stay following issue addressed Syncope Multifactorial. Patient has history of cardiac pause. He has a loop recorder. Dr. Arellano follows him. I talked to Dr. Landeros, he thinks that patient had nocturnal bradycardia with pulse secondary to obstructive sleep apnea. I talked to Dr. Arellano, he recommended an oncologist consult. Patient has leukopenia which can be signed of progression of his malignancy. Most likely patient will need AICD, however his life expectancy can be limited less than 1 year Continue telemetry I talked to Dr. Fairchild she recommended CT chest, abdomen and pelvis, and bone marrow biopsy. CT chest significant for Stable areas of a fissural thickening and pleural 5 parenchymal fibrosis. New opacity left lower lobe inflammatory versus less likely neoplastic CT abdomen and pelvis showed There is fairly marked confluent upper abdominal retroperitoneal and periportal lymphadenopathy. Hepatomegaly with moderate to marked fatty infiltration of the liver. Bone marrow was done. Await result CHF Systolic. There is concern for increased pulmonary hypertension. Echo was done, I discussed results with Dr. Landeros, patient was found to have ejection fraction of 35-40% with moderate to severe pulmonary hypertension. Most likely patient will need biventricular AICD. Cardiac follow-up depends on non-Hodgkin diseases prognosis Cardiac diet Patient euvolemic at this time Continue Lasix by mouth, stopped losartan and spironolactone due to hypotension Dr. Arellano recommended cardiac catheterization in the future if the patient has a good prognosis for non-Hodgkin lymphoma. According to Dr. Fairchild prognosis is guarded Hypokalemia Resolved Continue to monitor BMP Stage IV DLBCL w/ Burkitt-like features, triple expressor of BCL2, BCL6, and C-MYC - w/ BM and pleural fluid involvement (05/23/2018 flow cytometry pleural fluid - small population clonal cells, phenotype C/W DLBC previously diagnosed DLBCL). Dr. Fairchild consulted patient, she recommended abdominal lymph node biopsy, It was done on06/13/20. Await result Pancytopenia Most likely secondary to relapse of non-Hodgkin lymphoma Patient has increased pro-calcitonin level 0.55 and possible inflammatory changes on chest CT Patient was treated with ceftriaxone empirically, now we continue cefazolin Skin lesions/ cellulitis/vasculitis Most likely presentation of non-Hodgkin lymphoma Skin biopsy was done, await pathology report Aspergillus and beta [address] Yu recommended Doppler ultrasound of both extremities changed ceftriaxone IV to cefazolin IV secondary to surrounding cellulitis Viral cultures and HSV and VZV PCR were sent from the buttock area and arm. start Valtrex 1 gm p.o. t.i.d. Punch biopsy showed preliminary result of vasculitis DISCHARGE MEDICATIONS: Please see below. ALLERGIES: Please see below. PHYSICAL EXAMINATION ON DISCHARGE: GENERAL APPEARANCE: Obese male HEENT: no scleral icterus, no JVD, EOMI CARDIOVASCULAR: S1S2 LUNGS: CTA ABDOMEN: soft & not tender w palpitation MUSCULOSKELETAL: no cyanosis, no swelling INTEGUMENT: no generalized pallor, facial round healed wound 7x8 cm, extensive with black eschar with some mild erythema around over the right shoulder, stage III right buttock ulcer, Left forearm has a large area ulcer measuring about 10 cm x 8 cm with purulent discharge, tenderness, skin breakdown and erythema. Some discoloration of right lower extremity toes NEUROLOGICAL: cranial nerve function from 2-12 intact intact, follows commands, speech not dysarthric LABORATORY DATA: Please see below. IMAGING: INDICATION: malignancy. History of non-Hodgkin's lymphoma. COMPARISON: Comparison PET-CT imaging January 03, 2019.. TECHNIQUE: Helical scanning is acquired and 3 mm axial images re-formatted. Coronal and sagittal MPR images are generated. The CT contrast enhancement dose is 100 mL of intravenous Isovue 370. FINDINGS: Preliminary digital actuarial director radiograph demonstrates non-specific small bowel and large bowel gas. No obstruction. There is adenopathy adjacent to the distal esophagus at the GE junction. The largest lymph node here measures 2.5 x 2.3 by 2.9 cm. There are 2 subcentimeter lymph nodes adjacent. There is celiac axis the lymphadenopathy in the upper abdomen which appears somewhat confluency. Bulky lymphadenopathy is seen superiorly adjacent to the pancreas and extending into the periportal region. This confluent adenopathy is new from the prior study and produces a fairly large mass effect compressing the infra hepatic segment of the vena cava. There is a small low-density right adrenal nodule which appears benign. No left adrenal nodule is seen. There are new retrocrural lymph nodes. Periaortic adenopathy is seen although this is mild compared to the periportal and peripancreatic juanito disease. There are scattered small bowel mesenteric lymph nodes. A minimal amount of ascites is seen. There is moderate to marked diffuse fatty infiltration of the liver. Liver is felt to be enlarged demonstrating a craniocaudal span in the midclavicular line of 23 cm. No focal hepatic lesion is seen. The spleen is mildly enlarged as well measuring 14.9 cm in greatest dimension. Pancreas itself is felt to be intact. Normal appendix is seen in the sub a [place] region. Small and large bowel loops are unremarkable. No abdominal wall defect is seen. Seminal vesicles and prostate are intact. There are a few dystrophic calcifications in the prostate. Urinary bladder is unremarkable. There is no evidence of hydronephrosis or renal mass on either side. IMPRESSION: 1. There is fairly marked confluent upper abdominal retroperitoneal and periportal lymphadenopathy. 2. Hepatomegaly with moderate to marked fatty infiltration of the liver. 3. Minimal diffuse abdominal ascites. <Electronically signed by Issa Yan > 06/10/20 1644 DD: Gamaliel Yan MD 06/10/20 1638 DT: DANNY 06/10/20 1644 DS: SRIRAM 06/10/20 1638 06/10/20 1638 [~ rep ct labl] PROGNOSIS: Poor ACTIVITY: [As tolerated]. DIET: Cardiac DISPOSITION: Home ITEMS TO FOLLOWUP ON ON OUTPATIENT: Follow-up with oncologist, referral management liaison, ID, PCP and vacuum cleaner repairer DISCHARGE CONDITION: [Stable]. TIME SPENT ON DISCHARGE: 50 minutes. Vital Signs/I&Os Vital Signs Date Time Temp Pulse Resp B/P (MAP) Pulse Ox O2 Delivery O2 Flow Rate FiO2 06/17/20 06:00 97.1 97 18 118/71 (87) 95 Nasal Cannula 1.0 I&O- Last 24 Hours up to 6 AM 06/17/20 06:00 Intake Total 1810 ml Output Total 900 ml Balance 910 ml Laboratory Data Labs 24H Laboratory Tests 2 06/17/20 05:58: Immature Granulocyte % (Auto) 1.1, Neutrophils (%) (Auto) 69.2H, Lymphocytes (%) (Auto) 9.2L, Monocytes (%) (Auto) 17.8H, Eosinophils (%) (Auto) 2.2, Basophils (%) (Auto) 0.5, Neutrophils # (Auto) 1.3L, Lymphocytes # (Auto) 0.2L, Monocytes # (Auto) 0.3, Eosinophils # (Auto) 0.0, Basophils # (Auto) 0.0, Nucleated Red Blood Cells % (auto) 0.0, Anion Gap 3L, Glomerular Filtration Rate > 60.0, Calcium Level 7.9L, Magnesium Level 1.8, Total Bilirubin 0.5, Aspartate Amino Transf (AST/SGOT) 40H, Alanine Aminotransferase (ALT/SGPT) 17, Alkaline Phosphatase 116, Total Protein 4.9L, Albumin 2.4L, Albumin/Globulin Ratio 1.0 CBC/BMP Laboratory Tests 06/17/20 05:58 Microbiology Microbiology 06/13/20 Acid Fast Stain, Received Pending 06/13/20 Mycobacterial Culture, Received Pending 06/13/20 Fungal Smear, Received Pending 06/13/20 Fungal Culture, Received Pending 06/13/20 Varicella-Zoster Virus Culture, Received Pending 06/07/20 Respiratory Virus Panel (PCR) (CASSI[facility]) - Final, Complete 06/07/20 Blood Culture - Final, Complete NO GROWTH AFTER 5 DAYS 06/07/20 Blood Culture - Final, Complete NO GROWTH AFTER 5 DAYS Discharge Medications Scheduled Cephalexin (Cephalexin) 500 Mg Capsule, 1 CAP PO TID Furosemide (Furosemide) 20 Mg Tablet, 20 MG PO BID@, Omeprazole (Omeprazole) 20 Mg Capsule.dr, 40 MG PO DAILY Valacyclovir HCl (Valacyclovir) 500 Mg Tablet, 1,000 MG PO TID Allergies Coded Allergies: No Known Allergies (Unverified , 01/18/19) MABEL GASCA DO Jun 17, 2020 12:20
[2020-06-18 00:06] LABS: ASPERGILLUS GALACTOMANNAN AG 0.1 Index (0.00-0.49)
[2020-06-19 21:06] LABS: ANA (HEP2) Negative (.)
[2020-06-20 13:07] LABS: HSV-1 DNA Negative (Negative); HSV-2 DNA Negative (Negative); VARICELLA ZOSTER VIRUS PCR Negative (Negative)
== END 2020-06-17 12:05 | disposition home or self-care (01) | DRG 681 ==
LOC: M ED 15:18 → M ED INP 21:05 → M PCU 06-08 09:46 → M MSPAV 06-12 12:48
PROVIDERS: ATTEND Internal Medicine
PROC: 07BD3ZX Excision of Aortic Lymphatic, Percutaneous Approach, Diagnostic (ICD-10-PCS; principal; 2020-06-12 14:00)
PROC: 07DR3ZX Extraction of Iliac Bone Marrow, Percutaneous Approach, Diagnostic (ICD-10-PCS; 2020-06-13)
DX: C83.36 Diffuse large B-cell lymphoma, intrapelvic lymph nodes (principal); D61.818 Other pancytopenia; I27.20 Pulmonary hypertension, unspecified; I50.32 Chronic diastolic (congestive) heart failure; I48.0 Paroxysmal atrial fibrillation; B02.9 Zoster without complications; R00.1 Bradycardia, unspecified; R55 Syncope and collapse; I45.2 Bifascicular block; I49.5 Sick sinus syndrome; G47.33 Obstructive sleep apnea (adult) (pediatric); E87.6 Hypokalemia; E11.9 Type 2 diabetes mellitus without complications; R29.6 Repeated falls; Z87.891 Personal history of nicotine dependence; Z79.899 Other long term (current) drug therapy

== ENCOUNTER 2020-07-15 22:12 | Inpatient (IN) | payer OTHER, SELFPAY ==
[~2020-07-15] VITALS: Ht 157.5 cm; Wt 82.9 kg
[~2020-07-15 22:12] MED LIST changes: +ALDA25TA2 PO; +CEPH500C PO; +COZA1TAB PO; +FURO20TA2 PO; +POTA20TA6 PO; +VALA500T5 PO
[2020-07-15] MEDS ORDERED: FUROSEMIDE 40MG/4ML VIAL (J1940) IV ONE (22:35)
[2020-07-15 22:47] LABS: BASO % 0.9 % (0.0-1.0); EOS % 0.9 % (0.0-3.0); HEMATOCRIT 42.2 % (42.0-52.0); HEMOGLOBIN 13.3 g/dl (13.5-17.5); LYMPH # 0.2 10^3/uL (1.5-5.0); LYMPH % 15.7 % (24.0-44.0); MEAN CORPUSCULAR HEMOGLOBIN 25.9 pg (27.0-33.0); MEAN CORPUSCULAR HGB CONC 31.5 g/dl (32.0-36.5); MEAN CORPUSCULAR VOLUME 82.1 fl (80.0-96.0); MONO # 0.5 10^3/uL (0.0-0.8); NEUTROPHILS % 32.9 % (36.0-66.0); PLATELET COUNT, AUTOMATED 209 10^3/uL (150-450); RED BLOOD COUNT 5.14 10^6/uL (4.30-6.10); WHITE BLOOD COUNT 1.2 10^3/uL (4.0-10.0)
[2020-07-15 22:57] LABS: INR 1.15
[2020-07-15 23:10] LABS: NEUTROPHILS # 0.4 10^3/uL (1.5-8.5)
[2020-07-15 23:29] LABS: RSV AMPLIFICATION NEGATIVE (NEGATIVE)
[2020-07-15 23:36] LABS: ALBUMIN 2.7 GM/DL (3.2-5.2); ALT/SGPT 17 U/L (12-78); BILIRUBIN,DIRECT 0.5 MG/DL (0.0-0.2); BLOOD UREA NITROGEN 28 MG/DL (7-18); CALCIUM LEVEL 8.3 MG/DL (8.8-10.2); CARBON DIOXIDE LEVEL 29 MEQ/L (21-32); CHLORIDE LEVEL 93 MEQ/L (98-107); CK-MB VALUE MASS < 1.0 NG/ML (<3.6); CPK CREATINE PHOSPHOKINASE 23 U/L (39-308); CREATININE FOR GFR 0.88 MG/DL (0.70-1.30); GLOMERULAR FILTRATION RATE > 60.0 (>49); GLUCOSE, FASTING 85 MG/DL (70-100); MB/CK RELATIVE INDEX 4.35 (< OR =4); NT-PRO BNP 2313 PG/ML (<125); POTASSIUM SERUM 4.5 MEQ/L (3.5-5.1); SODIUM LEVEL 130 MEQ/L (136-145); THYROXINE (T4) 8.1 UG/DL (4.5-12.0); TROPONIN I < 0.02 NG/ML (< 0.10)
--- NOTE | 2020-07-15 23:40 | REPVR ---
PROCEDURE INFORMATION: Exam: XR Chest Exam date and time: 07/15/2020 10:58 PM Age: 65 years old Clinical indication: Cough and dyspnea; Additional info: Dyspnea/cough TECHNIQUE: Imaging protocol: XR of the chest Views: 1 view. COMPARISON: CT Chest with contrast 06/10/2020 2:25 PM FINDINGS: Tubes, catheters and devices: Right internal jugular Port-A-Cath in position to the superior vena cava. Loop recorder over the heart which is not well delineated. Lungs: There is decreased inflation of the lungs. Coarse interstitium with bilateral pulmonary infiltrates, left greater than right with mild areas of atelectasis, left greater than right. Pleural spaces: Minimal left pleural effusion. Heart/Mediastinum: Not well delineated but no gross cardiomegaly. Bones/joints: Unremarkable. IMPRESSION: 1. Right Port-A-Cath in position. 2. Poor inspiratory chest with bilateral pulmonary infiltrates and areas of fibro-atelectatic change, left greater than right which may reflect pneumonia. 3. Minimal left pleural effusion. Electronically signed by: Miguel Diaz On 07/15/2020 23:40:12 PM
--- NOTE | 2020-07-15 23:40 | REPVR ---
PROCEDURE INFORMATION: Exam: US Duplex Right Lower Extremity Veins, Limited Exam date and time: 07/15/2020 11:21 PM Age: 65 years old Clinical indication: Edema, localized; Lower extremity, right; Additional info: RT le lateral leg swelling TECHNIQUE: Imaging protocol: Real-time Duplex ultrasound of the Right Lower Extremity with 2-D waggoner scale, color Doppler flow and spectral waveform analysis with image documentation. Limited exam was focused on the right lower extremity veins. COMPARISON: US Duplex, Ext LOWER veins, bilat BILATERAL 06/14/2020 6:32 PM FINDINGS: Right deep veins: Unremarkable. The common femoral, femoral, proximal profunda femoral and popliteal veins are patent without thrombus. Normal Doppler waveforms. Normal compressibility and/or augmentation response. Right superficial veins: Unremarkable. Saphenofemoral junction is patent without thrombus. Soft tissues: Unremarkable. IMPRESSION: Negative right lower extremity venous duplex exam without evidence of deep venous thrombosis. Electronically signed by: Miguel Diaz On 07/15/2020 23:40:57 PM
[2020-07-15] MEDS ORDERED: LR 1,000 ML IV ONE (23:45)
[2020-07-15] MEDS ORDERED: DOXYCYCLINE HYCLATE 100 MG in D5W MINI-BAG PLUS 100 ML IV ONE (23:55)
[2020-07-15] MEDS ORDERED: cefTRIAXone SOD 1 GM in D5W MINI-BAG PLUS 50 ML IV ONE (23:55)
[2020-07-16] VITALS (8 sets, daily range): BP systolic 103–125; BP diastolic 70–88
[2020-07-16] MEDS ORDERED: TORS20TA2 PO (00:11)
[2020-07-16] MEDS ORDERED: POTA20TA6 PO (00:11)
[2020-07-16] MEDS ORDERED: OMEP1CAP73 PO (00:11)
[2020-07-16 00:12] LABS: ABG BASE EXCESS -3.4 (-2.0-2.0); ABG HCO3 22.1 MEQ/L (22.0-26.0); ABG O2 SATURATION 99.4 % (95.0-99.0); ABG PARTIAL PRESSURE CO2 41.6 mmHg (35.0-45.0); ABG PARTIAL PRESSURE O2 181.6 mmHg (75.0-100.0); ABG STANDARD HCO3 21.7 MEQ/L (22.0-26.0); ABG TOTAL CO2 23.4 MEQ/L (23.0-31.0); ABG pH (ARTERIAL) 7.344 UNITS (7.350-7.450)
[2020-07-16] MEDS ORDERED: MAALOX 30 ML SUSP *UDC PO PRN (00:50)
[2020-07-16] MEDS ORDERED: MOM 30ML SUSPENSION UDC PO PRN (00:50)
[2020-07-16] MEDS ORDERED: ACETAMINOPHEN TAB 650MG DOSE (2X325MG) PO PRN (00:50)
--- NOTE | 2020-07-16 01:16 | HPEPDOC ---
[facility] Medical History & Physical Date of Admission Jul 16, 2020 Date of Service: Jul 16, 2020 Attending Physician: YOVANA ZEE MD History and Physical CHIEF COMPLAINT: shortness of breath and weakness HISTORY OF PRESENT ILLNESS: 65 year old male with PMHx noted below who presented to the ED with 3 weeks worsening weakness, fatigue, and shortness of breath. He states this has been gradually worsening and today he just felt he could not take care of himself at home with it. He state he feel shortness of breath which is worse when he gets up to walk. He states he was recently told by his cardi ologist that he may need a cardiac cath, but this is on hold pending further work up of his lymphoma. He denies any chest pain. He is s/p treatment of lymphoma with R CHOP therapy. However, his oncologist recently ordered a PET scan to evaluate for possible recurrence based on his bone marrow biopsy results. Patient states this is scheduled for later this month. He denies cough, sputum production, hemoptysis, fever, and chills. 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 Also used to smoke 2-3 cigars a day for many years. Denies alcohol use. Denies history of IV drug use or illicit substance use. Lives alone, no home care. FAMILY HISTORY: Pt unsure of any medical conditions in family members. ALLERGIES: Please see below. REVIEW OF SYSTEMS: CONSTITUTIONAL: Denies fevers, chills, night sweats, unexpected change in weight. HEENT: Denies change in vision, change in hearing. CARDIOVASCULAR: Denies chest pain, palpitations, lightheadedness. RESPIRATORY: Denies cough, wheezing. GASTROINTESTINAL: Denies nausea, vomiting, abdominal pain, diarrhea, constipation, blood in stool. GENITOURINARY: Denies dysuria, urinary frequency, urinary urgency. SKIN: Pt note stable skin lesions on face, back, and arm. MUSCULOSKELETAL: Denies joint pain or muscle aches. NEUROLOGICAL: Denies headache, dizziness. PSYCHIATRIC: Denies change in mood. HOME MEDICATIONS: Please see below. PHYSICAL EXAMINATION: VITAL SIGNS: see below GENERAL: Alert, comfortable, in no acute distress HEENT: Normocephalic, atraumatic, sclera anicteric, moist mucous membranes NECK: Supple, trachea midline, no lymphadenopathy, no elevation of JVP appreciated CARDIOVASCULAR: Tachycardic with irregular rhythm, normal S1 and S2. No murmurs appreciated RESPIRATORY: Rales appreciated in bilateral lung bases. Otherwise clear without wheezing or rhonchi. ABDOMEN: Somewhat distended vs obese, soft, nontender, bowel sounds present, no masses or hepatosplenomegaly appreciated EXTREMITIES: 2+ pitting edema up to the mid calfs bilaterally. Pulses trace to 1/4 bilateral lower extremities dorsalis pedis and posterior tibial arteries. 2/ 4 pulses in bilateral radial arteries SKIN: large dusky/ecchymotic plaques on the right shoulder with erythematous borders. Large black eschar on the right cheek. NEUROLOGIC: Alert and oriented x3 to person, place and time. No focal deficits appreciated PSYCHIATRIC: Mood and affect appropriate LABORATORY DATA: See below. IMAGING: - Vascular U/S Negative right lower extremity venous duplex exam without evidence of deep venous thrombosis. - CXR 1. Right Port-A-Cath in position. 2. Poor inspiratory chest with bilateral pulmonary infiltrates and areas of fibro-atelectatic change, left greater than right which may reflect pneumonia. 3. Minimal left pleural effusion. MICROBIOLOGY: Please see below. ASSESSMENT: 65 year old male with PMHx including B-cell non-hodgkin's lymphoma, CHF, DM, paroxysmal atrial fibrillation presents with 3 weeks worsening fatigue and shortness of breath found to have severe neutropenia with likely pneumonia admitted for IV antibiotics and further work up. PLAN: 1. Sepsis with severe neutropenia, suspect PNA - Meets 3/4 SIRS criteria with tachycardia, tachypnea, and neutropenia. Current qSOFA score 1, not high risk. - ANC = 426 indicating severe neutropenia. No hx of fever. - CXR suggest bilateral PNA. Sputum culture pending. Blood cultures x2 pending. Check urine legionella and strep Ag - Avoid further fluid bolus at this time due to edema, although he may have some intravascular depletion - s/p IV ceftriaxone and doxycycline in the ED - Considering severe neutropenia will switch to cefepime and doxycycline to cover pseudomonas 2. Shortness of breath - possibly 2/2 PNA discussed above - pt notes possible need for cath indicated by his space control supervisor, will trend trop - hx of paroxysmal a fib, monitor on tele - hx of CHF, pt appears fairly compensated at this time with baseline LE edema, avoid fluid bolus 3. Necrotic toes - May also contribute to sepsis, abx as above - question underlying PAD contributing - Consider podiatry consult in the morning for further eval. 4. Multiple skin lesions including facial eschar - evaulated by derm on prior admission, areas do not appear actively infected. 5. Stage 4 Diffuse large B-cell Non-Hodgkin's Lymphoma - s/p RCHOP therapy per patient - Following with heme/onc, PET scan upcoming 6. CHF with preserved EF - continue home torsemide and potassium supplement 7. Hx DM, no current medications - consistent carb diet with SSI ACHS, hypoglycemic protocol 8. GERD - continue home PPI 9. Paroxysmal atrial fibrillation - no current meds - no anticoagulation due to active CA, f/u with PCP/space control supervisor DVT prophylaxis: SC lovenox Disposition: admitted inpatient to PCU, expect greater than two midnights stay Vital Signs Vital Signs Date Time Temp Pulse Resp B/P (MAP) Pulse Ox O2 Delivery O2 Flow Rate FiO2 07/15/20 23:30 112 20 121/86 (98) 100 Nasal Cannula 4.0 07/15/20 22:36 96.5 Laboratory Data Labs 24H Laboratory Tests 2 07/15/20 22:39: Immature Granulocyte % (Auto) 2.6, Neutrophils (%) (Auto) 32.9L, Lymphocytes (%) (Auto) 15.7L, Monocytes (%) (Auto) 47.0H, Eosinophils (%) (Auto) 0.9, Basophils (%) (Auto) 0.9, Neutrophils # (Auto) 0.4L, Lymphocytes # (Auto) 0.2L, Monocytes # (Auto) 0.5, Eosinophils # (Auto) 0.0, Basophils # (Auto) 0.0, Nucleated Red Blood Cells % (auto) 0.0, Prothrombin Time 15.0H, Prothromb Time International Ratio 1.15, Anion Gap 8, Glomerular Filtration Rate > 60.0, Lactic Acid Level 3.4*H, Calcium Level 8.3L, Total Bilirubin 1.0, Direct Bilirubin 0.5H, Aspartate Amino Transf (AST/SGOT) 37, Alanine Aminotransferase (ALT/SGPT) 17, Alkaline Phosphatase 217H, Total Creatine Kinase 23L, Creatine Kinase MB < 1.0, Creatine Kinase MB Relative Index 4.35H, Troponin I < 0.02, RV-Unk-Q-Type Natriuretic Peptide 2313H, Total Protein 5.0L, Albumin 2.7L, Albumin/Globulin Ratio 1.2, Thyroid Stimulating Hormone (TSH) 5.150H, Thyroxine (T4) 8.1, Coronavirus (COVID-19)(PCR) NEGATIVE, Influenza Type A (RT-PCR) NEGATIVE, Influenza Type B (RT-PCR) NEGATIVE, Respiratory Syncytial Virus (PCR) NEGATIVE 07/16/20 00:04: Blood Gas Bicarbonate Standard 21.7L, Arterial Blood pH 7.344L, Arterial Blood Partial Pressure CO2 41.6, Arterial Blood Partial Pressure O2 181.6H, Arterial Blood Total CO2 23.4, Arterial Blood HCO3 22.1, Arterial Blood Base Excess - 3.4L, Arterial Blood Oxygen Saturation 99.4H CBC/BMP Laboratory Tests 07/15/20 22:39 Microbiology Microbiology 07/15/20 Blood Culture, Received Pending Home Medications Scheduled Omeprazole (Omeprazole) 20 Mg Capsule.dr, 40 MG PO DAILY Potassium Chloride (Potassium Chloride) 20 Meq Tab.er.prt, 20 MEQ PO BID Torsemide (Torsemide) 20 Mg Tablet, 20 MG PO BID Allergies Coded Allergies: No Known Allergies (Unverified , 01/18/19) GME ATTESTATION GME ATTESTATION My faculty preceptor for this patient encounter was physically present during the encounter and was fully available. All aspects of the patient interview, examination, medical decision making process, and medical care plan development were reviewed and approved by the faculty preceptor. The faculty preceptor is aware and concurs with the plan as stated in the body of this note and will attest to such by his/her cosignature. ATTENDING NOTE I, A Yousef, have independently examined this patient and performed my own physical exam, as well as reviewed the documentation and edited where necessary. I have discussed in detail with the resident / student the findings and plan of treatment as documented by the resident / student and edited their note. I agree with their findings and treatment plan and have edited their documentation. I will continue to follow the patient during this hospital stay. BRETT NOE D.O. Jul 16, 2020 01:16 YOVANA ZEE MD Jul 16, 2020 04:31
[2020-07-16] MEDS ORDERED: DOXYCYCLINE HYCLATE 100 MG in D5W MINI-BAG PLUS 100 ML IV SCH (02:00)
[2020-07-16] MEDS ORDERED: GLUCOSE 4GM CHEW TABLET PO PRN (02:00)
[2020-07-16] MEDS ORDERED: DEXTROSE 50% 50 ML SYRINGE IV PRN (02:00)
[2020-07-16] MEDS ORDERED: GLUCAGON INJ 1MG VIAL SC PRN (02:00)
[2020-07-16 02:57] LABS: BASO % 1.4 % (0.0-1.0); HEMATOCRIT 39.2 % (42.0-52.0); HEMOGLOBIN 12.2 g/dl (13.5-17.5); LYMPH # 0.1 10^3/uL (1.5-5.0); LYMPH % 15.3 % (24.0-44.0); MEAN CORPUSCULAR HEMOGLOBIN 26.1 pg (27.0-33.0); MEAN CORPUSCULAR HGB CONC 31.1 g/dl (32.0-36.5); MEAN CORPUSCULAR VOLUME 83.9 fl (80.0-96.0); MONO # 0.3 10^3/uL (0.0-0.8); MONO % 40.3 % (2.0-8.0); NEUTROPHILS % 36.1 % (36.0-66.0); PLATELET COUNT, AUTOMATED 160 10^3/uL (150-450); RED BLOOD COUNT 4.67 10^6/uL (4.30-6.10)
[2020-07-16 03:18] LABS: BLOOD UREA NITROGEN 29 MG/DL (7-18); CALCIUM LEVEL 8.5 MG/DL (8.8-10.2); CARBON DIOXIDE LEVEL 27 MEQ/L (21-32); CHLORIDE LEVEL 94 MEQ/L (98-107); CREATININE FOR GFR 0.82 MG/DL (0.70-1.30); GLOMERULAR FILTRATION RATE > 60.0 (>49); GLUCOSE, FASTING 158 MG/DL (70-100); POTASSIUM SERUM 4.7 MEQ/L (3.5-5.1); SODIUM LEVEL 131 MEQ/L (136-145)
[2020-07-16 03:26] LABS: NEUTROPHILS # 0.3 10^3/uL (1.5-8.5); WHITE BLOOD COUNT 0.7 10^3/uL (4.0-10.0)
[2020-07-16] MEDS: CEFEPIME HCL 2 GM in D5W MINI-BAG PLUS 50 ML IV SCH ×3 (03:27→18:43)
[2020-07-16] MEDS ORDERED: FUROSEMIDE 20MG/2ML VIAL (J1940) IV ONE (03:30)
--- NOTE | 2020-07-16 08:03 | ECGEPIP ---
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
[2020-07-16 08:20] LABS: PERCENT SATURATION 21.5 % (19.7-50.0)
[2020-07-16] MEDS: HumaLOG INSULIN (NovoLOG) PER UNIT SC SCH ×4 (08:48→19:35)
[2020-07-16] MEDS: OMEPRAZOLE 20 MG CAP PO SCH (10:14)
[2020-07-16] MEDS: POTASSIUM CHLORIDE 10 MEQ SR TABLET PO SCH ×2 (10:15→19:35)
[2020-07-16] MEDS: TORSEMIDE 20 MG TAB PO SCH ×2 (10:15→19:35)
[2020-07-16] MEDS: ENOXAPARIN 40MG/0.4ML SYRINGE (J1650 PER 10MG) SC SCH (10:16)
[2020-07-16] MEDS ORDERED: FUROSEMIDE 40MG/4ML VIAL (J1940) IV ONE (10:35)
--- NOTE | 2020-07-16 10:47 | REP ---
INDICATION: PNA. COMPARISON: Comparison chest radiograph 15 July [address] Comparison chest [address] study 10 June 2020.. TECHNIQUE: Helical scanning is acquired. 3 mm axial images are generated. Coronal and sagittal MPR and coronal MIP images are generated. FINDINGS: Preliminary digital strike out machine operator radiograph is noncontributory. There are small bilateral pleural effusions and there is mild diffuse abdominal ascites in the upper abdomen. The ascites appears to be most prevalent in the left upper quadrant. There is marked diffuse fatty infiltration of the liver and there is mass effect at the pancreatic head again noted. Upper abdominal adenopathy and retrocrural adenopathy is seen bilaterally. There is adenopathy in the mediastinum involving the anterior mediastinum, pretracheal and, subcarinal regions. No axillary or extra thoracic adenopathy is appreciated. There is fairly diffuse pleural thickening surrounding the left lung and there is some fissural thickening on the left. Peribronchial thickening is seen on the left as well. There are patchy areas of nodular opacity in the right upper lobe and right lower lobe. There is a similar nodular opacity in the left upper lobe. The previously noted left lower lobe opacity which measured 2.4 cm in greatest diameter has resolved. The upper abdominal ascites is new compared with the June 10, 2020 study. The retrocrural and upper abdominal and the mediastinal adenopathy have progressed since June 10, 2020. IMPRESSION: Small bilateral effusions. Pleural thickening on the left. Interstitial lung disease and bilateral ill-defined nodular densities again noted. Mild left upper quadrant abdominal ascites is seen. Upper abdominal and retrocrural lymphadenopathy and some mediastinal lymphadenopathy again noted. The mediastinal adenopathy has progressed since June 10, 2020. <Electronically signed by Issa Yan > 07/16/20 [id number]
[2020-07-16 10:53] LABS: FOLATE 4.9 NG/ML (>5.4)
--- NOTE | 2020-07-16 11:32 | IPNPDOC ---
Text Note Date of Service The patient was seen on 07/16/20. NOTE Subjective: No acute events overnight. Pt states that his SOB has gotten better compared to yesterday. Pt states that his last R-CHOP therapy was in 2019 and is not currently on any immunosuppressants. Reports intermittent fevers. Denies any recent sick contacts. Pt states that he is not on oxygen at home. Denies any recent sick contacts or exposures. Denies headache, cough, congestion, abd pain, N/V/D. When asked about his living situation he reports living in a trailer next to his sisters house. Objective: VITALS: See below. GENERAL: Pt is laying in bed, no acute distress. Appears fatigued. HEENT: NC/AT. EOMI. Conjunctiva and lids normal. Sclera anicteric. CARDIOVASCULAR: Tachycardic and irregularly irregular. Normal S1/S2. No murmurs or rubs appreciated. RESPIRATORY: Crackles to b/l lung bases, L>R. Good air movement otherwise. No wheezing or rhonchi appreciated. ABDOMEN: Soft and non-tender to palpation. No hepatosplenomegaly appreciated. EXTREMITIES: 2+ pitting edema to calfs b/l. 1/4 DP pulses b/l. SKIN: Large ecchymotic plaques to R shoulder with erythematous borders. Large black eschar to R cheek. R second to fifth toes have black discoloration, appears to be 2/2 hypoperfusion. None of these areas appear cellulitic. NEUROLOGIC: No focal deficits appreciated. Assessment/Plan: Patient is a 65 year old male with PMHx including B-cell non-Hodgkin's lymphoma, CHF, DM, paroxysmal atrial fibrillation presents with 3 weeks worsening fatigue and shortness of breath found to have severe neutropenia with possible pneumonia admitted for IV antibiotics and further work up. #SOB, likely 2/2 CHF exacerbation - Heart failure with reduced ejection fraction 35-40%, unclear if ischemic vs non-ischemic in etiology. Net Making Supervisor reports cath may be required in the future. - Echocardiogram done on 06/08/20 shows EF of 35-40% with moderate to severe pulmonary hypertension. Would likely need biventricular AICD in the future however given stage 4 lymphoma. Poor prognosis with <2 year survival. - Likely 2/2 CHF exacerbation as pt CT chest does not appear changed from prior. - Has 2+ BLE edema and crackles to lung bases. - CXR done on 07/16/20 showed poor inspiratory chest with b/l pulmonary infiltrates and areas of fibro-atelectatic change, L>R which may reflect pneumonia and minimal L pleural effusion. However, CT chest done on 07/16/20 showed small bilateral effusions with pleural thickening on the L. Interstitial lung disease and b/l ill-defined nodular densities again noted. Likely pt has pleural effusion 2/2 fluid overload and not pneumonia. - Troponin being trended. Most recent troponin <0.02. - Pt given Furosemide 40 mg IV once. - Pt started on Torsemide 20 mg PO BID. - Will continue to monitor pt fluid status. - Pt placed on 2 g sodium diet. #Severe neutropenia - ANC 426 indicating severe neutropenia. No hx of fever and has been afebrile since admission. - Meets 3/4 SIRS criteria with tachycardia, tachypnea, and neutropenia. Current qSOFA score 1, not high risk. - Likely due to recurrence of diffuse B-cell non-Hodgkin's lymphoma with infiltration into bone marrow. Pt has PET scan scheduled for later this month. Pt follows heme/onc. - Will continue to work up for other possible causes of neutropenia. - Blood cultures, legionella antigen, urine strep pneumo, chlamydia pneumo pending. - Procalcitonin, Vitamin B12, folate, iron, ferritin, and copper levels pending. - Neutropenic precautions in place. - Will continue Doxycycline and Cefepime. #Skin lesions - Looking back at patients medical records, it appears that these skin lesions were addressed during pt admission in Jun 2020. Dermatology consulted at that time. - Skin biopsy results from L forearm showed vasculopathy with hemorrhagic necrosis. - Will have patient f/u with dermatology. - Pt has appointment with Dr. Flanagan as f/u. #Toe discoloration 2/2 PAD - Questionable underlying PAD may be contributing. - Vascular US done on 07/16/20 showed negative RLE venous duplex exam without evidence of DVT. - Consider podiatry consult for further evaluation. #Debility - Pt has increased weakness and fatigue. - Will have PT/OT on board. - Placement will be a concern for this patient as he lives alone in a trailer home. Case management on board. 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 - Was treated with CHOP and intrathecal methotrexate 2 years ago on 06/03/2018. A total of 5 cycles of CHOP were given but the 6th could not be completed. - Pt has been unable to f/u with heme/onc for the past year due to insurance reasons. - Pt states that he has PET scan scheduled later this month due to possible recurrence based on bone marrow biopsy results. Evidence of a monoclonal population of cells exhibiting was detected in bone marrow. Abd lymph node core biopsy showed a mixture of T and B cells. - Pt is scheduled for a PET scan later this month to assess for recurrence. #Hx of DM, no current medications - Pt placed on consistent carb diet. - Sliding scale insulin with hypoglycemic protocol. #GERD - Continue home PPI. #Paroxysmal atrial fibrillation - Not currently on anticoagulation or medications. - Will have pt f/u with spool cleaner hand and PCP. DVT Prophylaxis: SC Lovenox 40 mg Daily. Disposition: Pt SOB likely 2/2 CHF exacerbation so will continue diuresis as well as mo nitoring of fluid status. Pt is currently severely neutropenic. Neutropenic precautions in place and further work up of other possible causes of neutropenia currently pending. Believe neutropenia likely due to recurrence of diffuse B cell non-Hodgkin's lymphoma. Placement is a concern for this patient as he lives alone in a trailer home. Currently have PT/OT and case management involved. VS,Fishbone, I+O VS, Fishbone, I+O Laboratory Tests 07/15/20 22:39 07/16/20 02:40 Vital Signs Date Time Temp Pulse Resp B/P (MAP) Pulse Ox O2 Delivery O2 Flow Rate FiO2 07/16/20 08:04 95.3 99 18 116/73 (87) 99 Nasal Cannula 2.0 I&O- Last 24 Hours up to 6 AM 07/16/20 06:00 Intake Total 150 ml Output Total 100 ml Balance 50 ml GME ATTESTATION GME ATTESTATION My faculty preceptor for this patient encounter was physically present during the encounter and was fully available. All aspects of the patient interview, examination, medical decision making process, and medical care plan development were reviewed and approved by the faculty preceptor. The faculty preceptor is aware and concurs with the plan as stated in the body of this note and will attest to such by his/her cosignature. ATTENDING NOTE I, Sonny Logan MD, have independently examined this patient and performed my own physical exam, as well as reviewed the documentation and edited where necessary. I have discussed in detail with the resident / student the findings and plan of treatment as documented by the resident / student and edited their note. I agree with their findings and treatment plan and have edited their documentation. Vinita WILLIAMSON OMS-3 Jul 16, 2020 11:32 SONNY LOGAN MD Jul 17, 2020 14:47
[2020-07-16] MEDS: DOXYCYCLINE HYCLATE 100 MG in D5W MINI-BAG PLUS 100 ML IV SCH (13:49)
[2020-07-17] VITALS: BP 116/75
[2020-07-17] MEDS: DOXYCYCLINE HYCLATE 100 MG in D5W MINI-BAG PLUS 100 ML IV SCH ×2 (01:01→14:52)
[2020-07-17] MEDS: CEFEPIME HCL 2 GM in D5W MINI-BAG PLUS 50 ML IV SCH ×3 (02:22→18:40)
[2020-07-17] MEDS ORDERED: FUROSEMIDE 40MG/4ML VIAL (J1940) IV ONE (05:05)
[2020-07-17 06:05] LABS: EOS % 0.9 % (0.0-3.0); HEMATOCRIT 39.8 % (42.0-52.0); HEMOGLOBIN 12.3 g/dl (13.5-17.5); LYMPH # 0.2 10^3/uL (1.5-5.0); LYMPH % 13.8 % (24.0-44.0); MEAN CORPUSCULAR HEMOGLOBIN 26.2 pg (27.0-33.0); MEAN CORPUSCULAR HGB CONC 30.9 g/dl (32.0-36.5); MEAN CORPUSCULAR VOLUME 84.7 fl (80.0-96.0); MONO # 0.6 10^3/uL (0.0-0.8); MONO % 52.6 % (2.0-8.0); NEUTROPHILS % 31.8 % (36.0-66.0); PLATELET COUNT, AUTOMATED 185 10^3/uL (150-450); WHITE BLOOD COUNT 1.2 10^3/uL (4.0-10.0)
[2020-07-17 06:29] LABS: BLOOD UREA NITROGEN 37 MG/DL (7-18); CALCIUM LEVEL 8.9 MG/DL (8.8-10.2); CARBON DIOXIDE LEVEL 26 MEQ/L (21-32); CHLORIDE LEVEL 92 MEQ/L (98-107); CREATININE FOR GFR 1.01 MG/DL (0.70-1.30); GLOMERULAR FILTRATION RATE > 60.0 (>49); GLUCOSE, FASTING 107 MG/DL (70-100); POTASSIUM SERUM 4.5 MEQ/L (3.5-5.1); SODIUM LEVEL 128 MEQ/L (136-145)
[2020-07-17 06:33] LABS: NEUTROPHILS # 0.4 10^3/uL (1.5-8.5)
--- NOTE | 2020-07-17 06:36 | REP ---
INDICATION: ABDOMINAL DISTENSION COMPARISON: 06/10/2020 TECHNIQUE: Axial noncontrast images from the lung bases to the pubic symphysis with coronal and sagittal reformations. This CT examination was performed using the following dose reduction techniques: Automated exposure control, adjustment of mA and/or kv according to the patient's size, and use of iterative reconstruction technique. FINDINGS: Examination is limited by lack of contrast. Large conglomerate upper abdominal/periportal mass/adenopathy along with mesenteric/peritoneal and retroperitoneal adenopathy is markedly increased from prior examination. Moderate to large amount of ascites also represents a new finding as compared to prior exam. Hepatosteatosis noted. Increased density material in the gallbladder may represent vicarious excretion of contrast from prior examination or cholelithiasis/sludge without evidence for acute cholecystitis. Spleen, visible portions of the pancreas, left adrenal gland and bilateral kidneys are essentially normal for noncontrast evaluation. Right adrenal gland includes stable 1 cm adenoma. The enteric system is without obstruction or obvious acute inflammatory process. Pelvis demonstrates Bowers catheter in collapsed bladder and relatively normal prostate/seminal vesicles. Abdominal aorta without aneurysm. Skeletal structures demonstrate degenerative appearing changes. IMPRESSION: 1. Markedly increased adenopathy. 2. Moderate to large amount of ascites. 3. Chronic nonacute findings including hepatosteatosis. <Electronically signed by Bill Angel > 07/17/20 [id number]
[2020-07-17 07:05] VITALS: BP 101/68
[2020-07-17] MEDS: HumaLOG INSULIN (NovoLOG) PER UNIT SC SCH ×4 (07:30→20:00)
--- NOTE | 2020-07-17 08:50 | IPNPDOC ---
Text Note Date of Service The patient was seen on 07/17/20. NOTE Subjective: Pt had 4 beats of asymptomatic v tach overnight. Pt admits to SOB and weakness. However, overall pt reports that he feels better than he did yesterday. Admits to feeling some bloating in hs abd. Denies any chest pain, headache, N/V/D, constipation, abd pain, fever, chills. Pt has been eating and drinking okay. He currently has a riggs cath in place. Objective: VITALS: See below. GENERAL: Pt is laying in bed, no acute distress. Appears fatigued. HEENT: NC/AT. EOMI. Conjunctiva and lids normal. Sclera anicteric. CARDIOVASCULAR: Tachycardic and irregularly irregular. Normal S1/S2. No murmurs or rubs appreciated. RESPIRATORY: Crackles to b/l lung bases, L>R. Good air movement otherwise. No wheezing or rhonchi appreciated. ABDOMEN: Abd distended. Fluid wave noted. Soft and non-tender to palpation. No hepatosplenomegaly appreciated. EXTREMITIES: 2+ pitting edema to calfs b/l. 1/4 DP pulses b/l. SKIN: Large ecchymotic plaques to R shoulder with erythematous borders. Large black eschar to R cheek. R second to fifth toes have black discoloration, appears to be 2/2 hypoperfusion. None of these areas appear cellulitic. NEUROLOGIC: No focal deficits appreciated. Assessment/Plan: Patient is a 65 year old male with PMHx including B-cell non-Hodgkin's lymphoma, CHF, DM, paroxysmal atrial fibrillation presents with 3 weeks worsening fatigue and shortness of breath found to have severe neutropenia with possible pneumonia admitted for IV antibiotics and further work up. #SOB, likely 2/2 CHF exacerbation - Heart failure with reduced ejection fraction 35-40%, unclear if ischemic vs non-ischemic in etiology. Web Services Developer reports cath may be required in the future. - Echocardiogram done on 06/08/20 shows EF of 35-40% with moderate to severe pulmonary hypertension. Would likely need biventricular AICD in the future however given stage 4 lymphoma. Poor prognosis with <2 year survival. - Likely 2/2 CHF exacerbation as pt CT chest does not appear changed from prior. - Has 2+ BLE edema and crackles to lung bases. - CXR done on 07/16/20 showed poor inspiratory chest with b/l pulmonary infiltrates and areas of fibro-atelectatic change, L>R which may reflect pneumonia and minimal L pleural effusion. However, CT chest done on 07/16/20 showed small bilateral effusions with pleural thickening on the L. Interstitial lung disease and b/l ill-defined nodular densities again noted. Likely pt has pleural effusion 2/2 fluid overload and not pneumonia. - Troponin being trended. Most recent troponin <0.02. - Pt given Furosemide 40 mg IV once yesterday and today. - Torsemide discontinued. Lasix 40 BID started. - Will continue to monitor pt fluid status. - Pt placed on 2 g sodium diet. - SOB could be 2/2 ascites. #Severe neutropenia - At time of admission, ANC 426 indicating severe neutropenia. No hx of fever and has been afebrile since admission. - At the time of admission, Meets 3/4 SIRS criteria with tachycardia, tachypnea, and neutropenia. qSOFA score 1, not high risk. - Likely due to recurrence of diffuse B-cell non-Hodgkin's lymphoma with infiltration into bone marrow. Pt has PET scan scheduled for later this month. Pt follows heme/onc. - Will continue to work up for other possible causes of neutropenia. - Blood cultures, legionella antigen, urine strep pneumo, chlamydia pneumo pending. - Procalcitonin and copper levels pending. Folate low at 4.9, Iron low at 34. - Neutropenic precautions in place. - Will continue Doxycycline and Cefepime. #Ascites - CT abd/pelvis done on 07/16/20 shows moderate to large amount of ascites and markedly increased adenopathy. - Ascites likely 2/2 increased adenopathy due to recurrence of diffuse B cell non-Hogkin's lymphoma. - Plan for diagnostic and therapeutic paracentesis tomorrow morning. Will hold Lovenox. - Discontinuing torsemide and starting Lasix 40 mg IV BID. - Will possibly add Spironolactone after paracentesis tomorrow. #V Tach - NSVT - Pt has had 4 beats of v tach overnight on 07/17/20. - This is to be expected as pt has multiple cardiac abnormalities noted on echocardiogram (heart failure with EF 35-40%, L ventricle paradoxical septal motion, R ventricular pressure overload, moderate impairment of global resting systolic function, mildly dilated R heart chambers with R ventricular free wall hypokinesis, moderately severe pulmonary hypertension, moderate aortic valvular sclerosis without stenosis or significant insufficiency, mild degenerative changes of the mitral valve apparatus) - Will continue to keep pt on tele monitoring. - Magnesium pending. - Will continue to monitor Mg and K. #Skin lesions - Looking back at patients medical records, it appears that these skin lesions were addressed during pt admission in Jun 2020. Dermatology consulted at that time. - Skin biopsy results from L forearm showed vasculopathy with hemorrhagic necrosis. - Will have patient f/u with dermatology. - Pt has appointment with Dr. Flanagan as f/u. #Toe discoloration 2/2 PAD - Questionable underlying PAD may be contributing. - Vascular US done on 07/16/20 showed negative RLE venous duplex exam without evidence of DVT. - Consider podiatry consult for further evaluation. #Debility - Pt has increased weakness and fatigue. - Will have PT/OT on board. - Placement will be a concern for this patient as he lives alone in a trailer home. Case management on board. 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 - Was treated with CHOP and intrathecal methotrexate 2 years ago on 06/03/2018. A total of 5 cycles of CHOP were given but the 6th could not be completed. - Pt has been unable to f/u with heme/onc for the past year due to insurance reasons. - Pt states that he has PET scan scheduled later this month due to possible recurrence based on bone marrow biopsy results. Evidence of a monoclonal population of cells exhibiting was detected in bone marrow. Abd lymph node core biopsy showed a mixture of T and B cells. - Pt is scheduled for a PET scan later this month to assess for recurrence. #Hx of DM, no current medications - Pt placed on consistent carb diet. - Sliding scale insulin with hypoglycemic protocol. #GERD - Continue home PPI. #Paroxysmal atrial fibrillation - Not currently on anticoagulation or medications. - Will have pt f/u with [employer] supervisor and PCP. DVT Prophylaxis: SC Lovenox 40 mg Daily. Disposition: Pt SOB likely 2/2 CHF exacerbation vs ascites so will continue diuresis as well as monitoring of fluid status. Plan for paracentesis tomorrow. Overall prognosis is poor given recurrence of stage 4 non-Hodgkin's lymphoma. Oncology gave pt a 2 year prognosis. Planning for placement at the time of discharge. Pt has voiced interest in [facility]. VS,Fishbone, I+O VS, Fishbone, I+O Laboratory Tests 07/17/20 05:13 Vital Signs Date Time Temp Pulse Resp B/P (MAP) Pulse Ox O2 Delivery O2 Flow Rate FiO2 07/17/20 07:05 97.0 99 24 101/68 (79) 97 Nasal Cannula 2.0 I&O- Last 24 Hours up to 6 AM 07/17/20 06:00 Intake Total 1050 ml Output Total 875 ml Balance 175 ml GME ATTESTATION GME ATTESTATION My faculty preceptor for this patient encounter was physically present during the encounter and was fully available. All aspects of the patient interview, examination, medical decision making process, and medical care plan development were reviewed and approved by the faculty preceptor. The faculty preceptor is aware and concurs with the plan as stated in the body of this note and will attest to such by his/her cosignature. ATTENDING NOTE I, Sonny Logan MD, have independently examined this patient and performed my own physical exam, as well as reviewed the documentation and edited where necessary. I have discussed in detail with the resident / student the findings and plan of treatment as documented by the resident / student and edited their note. I agree with their findings and treatment plan and have edited their documentation. Vinita WILLIAMSON OMS-3 Jul 17, 2020 08:50 SONNY LOGAN MD Jul 17, 2020 14:49
[2020-07-17] MEDS: POTASSIUM CHLORIDE 10 MEQ SR TABLET PO SCH ×2 (08:59→20:09)
[2020-07-17] MEDS: TORSEMIDE 20 MG TAB PO SCH (08:59)
[2020-07-17] MEDS: OMEPRAZOLE 20 MG CAP PO SCH (08:59)
[2020-07-17] MEDS: ENOXAPARIN 40MG/0.4ML SYRINGE (J1650 PER 10MG) SC SCH (08:59)
[2020-07-17 12:00] VITALS: BP 101/65
[2020-07-17 12:01] LABS: OSMOLALITY URINE 295 MOSM/KG (50-1400)
[2020-07-17 12:07] LABS: APPEARANCE, URINE HAZY (CLEAR); BACTERIA, URINE AUTO 1+ (NEGATIVE); BILIRUBIN, URINE AUTO NEGATIVE (NEGATIVE); BLOOD, URINE BLOOD 3+ (NEGATIVE); COLOR, URINE YELLOW (YELLOW); GLUCOSE, URINE (UA) AUTO NEGATIVE (NEGATIVE); KETONE, URINE AUTO NEGATIVE (NEGATIVE); LEUKOCYTE ESTERASE, URINE AUTO NEGATIVE (NEGATIVE); NITRITE, URINE AUTO NEGATIVE (NEGATIVE); PROTEIN, URINE AUTO NEGATIVE (NEGATIVE); RBC, URINE AUTO TNTC /HPF (0-3); SPECIFIC GRAVITY URINE AUTO 1.009 (1.002-1.035); SQUAMOUS EPITHELIAL CELL UR AU 0 /HPF (0-6); UROBILINOGEN, URINE AUTO 0.2 mg/dL (0.0-2.0); WBC, URINE AUTO 5 /HPF (0-3)
[2020-07-17 12:18] LABS: SODIUM,RANDOM URINE 24 MEQ/L
[2020-07-17 16:00] VITALS: BP 102/64
[2020-07-17] MEDS: FUROSEMIDE 40MG/4ML VIAL (J1940) IV SCH (17:14)
[2020-07-17 20:00] VITALS: BP 100/66
[2020-07-18] VITALS: BP 102/67
[2020-07-18] MEDS: DOXYCYCLINE HYCLATE 100 MG in D5W MINI-BAG PLUS 100 ML IV SCH ×2 (00:35→14:45)
[2020-07-18] MEDS: CEFEPIME HCL 2 GM in D5W MINI-BAG PLUS 50 ML IV SCH ×3 (02:01→19:16)
[2020-07-18 04:00] VITALS: BP 99/67
[2020-07-18 06:11] LABS: EOS % 2.7 % (0.0-3.0); HEMATOCRIT 40.4 % (42.0-52.0); HEMOGLOBIN 12.6 g/dl (13.5-17.5); LYMPH # 0.2 10^3/uL (1.5-5.0); LYMPH % 13.4 % (24.0-44.0); MEAN CORPUSCULAR HEMOGLOBIN 25.6 pg (27.0-33.0); MEAN CORPUSCULAR HGB CONC 31.2 g/dl (32.0-36.5); MEAN CORPUSCULAR VOLUME 82.1 fl (80.0-96.0); MONO # 0.6 10^3/uL (0.0-0.8); NEUTROPHILS % 32.1 % (36.0-66.0); PLATELET COUNT, AUTOMATED 143 10^3/uL (150-450); RED BLOOD COUNT 4.92 10^6/uL (4.30-6.10); WHITE BLOOD COUNT 1.1 10^3/uL (4.0-10.0)
[2020-07-18 06:32] LABS: BLOOD UREA NITROGEN 39 MG/DL (7-18); CALCIUM LEVEL 9.1 MG/DL (8.8-10.2); CARBON DIOXIDE LEVEL 27 MEQ/L (21-32); CHLORIDE LEVEL 92 MEQ/L (98-107); CREATININE FOR GFR 1.03 MG/DL (0.70-1.30); GLOMERULAR FILTRATION RATE > 60.0 (>49); GLUCOSE, FASTING 85 MG/DL (70-100); POTASSIUM SERUM 4.6 MEQ/L (3.5-5.1); SODIUM LEVEL 130 MEQ/L (136-145)
[2020-07-18 06:33] LABS: NEUTROPHILS # 0.4 10^3/uL (1.5-8.5)
[2020-07-18 07:13] VITALS: BP 110/72
[2020-07-18] MEDS: HumaLOG INSULIN (NovoLOG) PER UNIT SC SCH ×4 (07:30→20:39)
[2020-07-18] MEDS ORDERED: LIDOCAINE 1% MDV 20ML VIAL As Ordered ONE (08:44)
--- NOTE | 2020-07-18 09:14 | IPNPDOC ---
Date Seen The patient was seen on 07/18/20. Progress Note SUBJECTIVE: Patient was seen and examined this morning. He has no new complaints. He does state that he has some irritation from his riggs catheter described as a burning feeling. There has otherwise been no adverse events reported overnight. He is scheduled for his paracentesis this morning OBJECTIVE PHYSICAL EXAMINATION: VITAL SIGNS: Please see below. GENERAL: Awake, alert, and oriented. Appears in no acute distress. Frail appearing. Lying comfortably in bed. HEENT: Atraumatic, normocephalic. Eyes are nonicteric. Trachea is midline. Mucous membranes are pink and moist. Nasal Cannula is in place. Black eschar on right cheek CARDIOVASCULAR: Normal S1. S2. Regular rate and rhythm. No clicks rubs or murmurs RESPIRATORY: Clear breath sounds bilaterally. No wheezes, rhonchi or rales. Somewhat diminished in the bases bilaterally ABDOMINAL: Soft, distended. Nontender. No rebound tenderness or guarding. No striae. No palpable abdominal masses. Riggs catheter in place EXTREMITIES: Significant 3+ pitting edema of bilateral lower extremities Skin: Multiple eschars on right shoulder, left forearm and right cheek. They do not appear cellulitic NEUROLOGICAL: No focal neurological deficits PSYCHOLOGICAL: Mood and affect appear appropriate LABORATORY DATA, IMAGING STUDIES, MICROBIOLOGY: Please see below. DVT prophylaxis ordered?: Lovenox on HOLD due to procedure. TEDs and Sequentials ASSESSMENT AND PLAN: Patient is a 65 year old male with a past medical history significant for large B-cell lymphoma s/p R-CHOP in 2019, HFrEF (LVEF 35-40%) nonischemic vs ischemic, diabetes mellitus type 2, paroxysmal atrial fibrillation, and possible relapse of his lymphoma who presented to [facility] with worsening shortness of breath and severe neutropenia and found to have large to moderate ascites. Patient has been admitted and treated for CHF exacerbation and new onset ascites. PROBLEMS: 1. Shortness of breath; multifactorial to CHF exacerbation and ascites -Patient has a cardiomyopathy. Unclear whether this is secondary to R-CHOP therapy or a ischemic in etiology. Last LVEF was found to be 35-40%. He has been evaluated by Cardiology outpatient. He would need a heart catheterization however given his current functional status this has been on hold. Additionally, patient has been given a < 2 year prognosis from Oncology and therefore would not be a candidate for AICD placement -His shortness of breath may be secondary to CHF exacerbation. He is currently receiving lasix. Will continue. -Continue 2g sodium diet and 1800cc fluid restriction -Abdominal distension present. CT abdomen and pelvis demonstrating ascites. Likely contributing in part to shortness of breath 2. New onset Ascites -Patient presenting with large to moderate ascites. Additionally, CT abdomen and pelvis demonstrating worsening adenopathy. Patient is scheduled for a paracentesis today both diagnostic and therapeutic. This is likely malignant ascites given his cancer history. If this is malignant ascites then this would confer a worse prognosis -Paracentesis performed today with 4L ascitic fluid removed. Cultures pending. SAAG of 1.1. Likely multifactorial from portal hypertension/CHF and malignancy. -Ascites will likely recur given his malignancy and CHF 3. Severe Neutropenia -Currently stable. Patient is not receiving chemotherapy currently. His neutropenia is likely explained by infiltration of the bone marrow. This once again would suggest a poor prognosis. -Patient is currently continued on IV antibiotics given neutropenia. 4. NSVT -Patient noted to have multiple episodes of NSVT. Given his structural heart disease and reduced ejection fraction this would be expected. Patient would not be a candidate for AICD or life vest given his overall poor prognosis. He does remain full code however, -Will continue to monitor Telemetry -Will monitor and replete electrolytes as needed 5. Eschar skin lesions -Patient has multiple black eschars. These have been formally evaluted prior to this hospitalization. Pathology previously demonstrated vasculopathy. Patient was recommended to follow-up with wound care outpatient 6. Toe discoloration 2/2 PAD -Patient has toe discoloration on the right. He has had a vascular ultrasound demonstrating adequate blood flow. May also be secondary to vasculopathy -May consider further vascular consult outpatient 7. Debility -Patient at baseline is fairly weak. PT/OT ordered. -Patient has been fairly sedentary in bed. Have encouraged ambulation 8. History of Stage 4 Diffuse Large B-cell lymphoma -Patient has history of triple expressive BCL-2, BCL-6, and c-myc large B- cell lymphoma. s/p R-CHOP in 2019. Patient was then lost to follow-up and has recently presented possible relapse. He has been seen by Oncology recently with recommendations for a PET scan. -CT scan obtained inpatient demonstrating worsening adenopathy. Possible lymphoma recurrence. Additionally patient has moderate to severe ascites. -Will need follow-up with Oncology however has been given a 2 year survival at best. Given severe neutropenia suggesting bone marrow infiltration and new onset ascites, prognosis is guarded 9. Urinary Discomfort. -Likely secondary to bladder contractions on riggs catheter. Will D/C riggs today. -If continued discomfort then will add Pyridium 10. 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 Will optimize patient. He has expressed wishes for placement at [facility]. Currently patient is Full Code. His poor prognosis has been discussed with him. He will need to follow-up with Oncology outpatient although given his new onset ascites his prognosis is likely poor VS, I&O, 24H, Fishbone Vital Signs/I&O Vital Signs Date Time Temp Pulse Resp B/P (MAP) Pulse Ox O2 Delivery O2 Flow Rate FiO2 07/18/20 07:13 97.8 98 18 110/72 (85) 96 Nasal Cannula 2.0 I&O- Last 24 Hours up to 6 AM 07/18/20 06:00 Intake Total 1850 ml Output Total 1800 ml Balance 50 ml Laboratory Data 24H LABS Laboratory Tests 2 07/17/20 09:39: Osmolality 275L, Magnesium Level 2.0 07/17/20 11:18: Urine Color YELLOW, Urine Appearance HAZY, Urine pH 5.0, Urine Specific [place] 1.009, Urine Protein NEGATIVE, Urine Glucose (Auto)(UA) NEGATIVE, Urine Ketones (Auto) NEGATIVE, Urine Blood 3+H, Urine Nitrite NEGATIVE, Urine Bilirubin NEGATIVE, Urine Urobilinogen 0.2, Urine Leukocyte Esterase (Auto) NEGATIVE, Urine WBC (Auto) 5H, Urine RBC (Auto) TNTCH, Urine Hyaline Casts (Auto) 18, Urine Bacteria (Auto) 1+H, Urine Squamous Epithelial Cells 0, Urine Sperm (Auto) , Urine Osmolality 295, Urine Random Sodium 24 07/17/20 12:47: Bedside Glucose (Misc Panel) 351H 07/17/20 15:50: Bedside Glucose (Misc Panel) 71L 07/17/20 19:55: Bedside Glucose (Misc Panel) 117H 07/18/20 05:12: Immature Granulocyte % (Auto) 1.8, Neutrophils (%) (Auto) 32.1L, Lymphocytes (%) (Auto) 13.4L, Monocytes (%) (Auto) 50.0H, Eosinophils (%) (Auto) 2.7, Basophils (%) (Auto) 0.0, Neutrophils # (Auto) 0.4L, Lymphocytes # (Auto) 0.2L, Monocytes # (Auto) 0.6, Eosinophils # (Auto) 0.0, Basophils # (Auto) 0.0, Nucleated Red Blood Cells % (auto) 0.0, Anion Gap 11, Glomerular Filtration Rate > 60.0, Calcium Level 9.1 CBC/BMP Laboratory Tests 07/18/20 05:12 Microbiology Microbiology 07/16/20 Blood Culture - Preliminary, Resulted No Growth after 48 hours. All Specime... 07/15/20 Blood Culture - Preliminary, Resulted No Growth after 48 hours. All Specime... GME ATTESTATION GME ATTESTATION My faculty preceptor for this patient encounter was physically present during the encounter and was fully available. All aspects of the patient interview, examination, medical decision making process, and medical care plan development were reviewed and approved by the faculty preceptor. The faculty preceptor is aware and concurs with the plan as stated in the body of this note and will attest to such by his/her cosignature. ATTENDING NOTE I, Sonny Logan MD, have independently examined this patient and performed my own physical exam, as well as reviewed the documentation and edited where necessary. I have discussed in detail with the resident / student the findings and plan of treatment as documented by the resident / student and edited their note. I agree with their findings and treatment plan and have edited their documentation. GIBSON SANCHEZ DO Jul 18, 2020 09:14 SONNY LOGAN MD Jul 31, 2020 14:22
[2020-07-18] MEDS: OMEPRAZOLE 20 MG CAP PO SCH (09:58)
[2020-07-18] MEDS: POTASSIUM CHLORIDE 10 MEQ SR TABLET PO SCH ×2 (09:58→20:38)
[2020-07-18 10:15] LABS: APPEARANCE, BODY FLUID TURBID (CLEAR); ASCITES FL COLOR YELLOW (COLORLESS); SOURCE, BODY FLUID ASCITES
[2020-07-18 10:51] LABS: SPEC. GRAVITY BODY FLUIDS 1.019 (NOT ESTABLISHED)
[2020-07-18 11:02] LABS: SOURCE, BODY FLUID ALBUMIN OTHER; SOURCE, BODY FLUID TOT PROTEIN ASCITES; TOTAL PROTEIN, BODY FLUID 2.4 G/DL (NOT ESTABLISHED)
[2020-07-18 11:24] VITALS: BP 98/58
[2020-07-18] MEDS: FOLIC ACID 1 MG in NS 50 ML IV SCH (13:40)
[2020-07-18 15:09] LABS: BODY FLUID CULTURE Not indicated. (.); CHLAMYDIA PNEUMONIAE IgG <1:16 (Neg:<1:16); CHLAMYDIA PNEUMONIAE IgM <1:10 (Neg:<1:10); LEGIONELLA ANTIGEN URINE Negative (Negative); MYCOPLASMA PNEUMONIAE IgG <100 U/mL (0-99); MYCOPLASMA PNEUMONIAE IgM <770 U/mL (0-769); ORGANISM ID Not indicated. (.); SPECIMEN SOURCE Urine (.); URINE STREP PNEUMONIAE ANTIGEN Negative (Negative)
[2020-07-18 16:00] VITALS: BP 98/63
--- NOTE | 2020-07-18 16:22 | REP ---
INDICATION: Ascites. Diagnostic and therapeutic. COMPARISON: None. TECHNIQUE: The procedure was performed under the direct supervision of Dr. Yan. The risks and benefits of the procedure were explained to the patient and informed consent was obtained. The risks and benefits of the procedure were explained to the patient and informed consent was obtained. The largest pocket of fluid was localized in the left flank using ultrasound guidance. The skin was prepped and draped in a sterile fashion. 1% lidocaine was used as a local anesthetic. An 8-Upper Sorbian multi side-hole catheter was inserted using trocar technique. 3900 cc of cloudy pink fluid was withdrawn with a sample sent to the lab for analysis. The patient tolerated the procedure well and there were no immediate complications. After the appropriate amount of monitored convalescence, the patient was discharged from the department. FINDINGS: None IMPRESSION: Ultrasound-guided paracentesis yielding 3900 cc of cloudy pink fluid. <Electronically signed by Jose Juan Gilmore > 07/18/20 1618 <Electronically signed by Issa Yan > 07/18/20 1614
[2020-07-18] MEDS: FUROSEMIDE 40MG/4ML VIAL (J1940) IV SCH (17:00)
[2020-07-18 20:00] VITALS: BP 94/58
[2020-07-19] VITALS: BP 101/61
[2020-07-19] MEDS: DOXYCYCLINE HYCLATE 100 MG in D5W MINI-BAG PLUS 100 ML IV SCH ×2 (01:40→14:29)
[2020-07-19] MEDS: CEFEPIME HCL 2 GM in D5W MINI-BAG PLUS 50 ML IV SCH ×3 (02:49→18:53)
[2020-07-19 04:00] VITALS: BP 109/65
[2020-07-19] MEDS ORDERED: SODIUM CHLORIDE 0.9% INJ 10 ML SYR IV PRN (04:45)
[2020-07-19 05:52] LABS: EOS % 1.9 % (0.0-3.0); HEMATOCRIT 37.3 % (42.0-52.0); HEMOGLOBIN 11.8 g/dl (13.5-17.5); LYMPH # 0.1 10^3/uL (1.5-5.0); LYMPH % 13.6 % (24.0-44.0); MEAN CORPUSCULAR HEMOGLOBIN 26.1 pg (27.0-33.0); MEAN CORPUSCULAR HGB CONC 31.6 g/dl (32.0-36.5); MEAN CORPUSCULAR VOLUME 82.5 fl (80.0-96.0); MONO # 0.5 10^3/uL (0.0-0.8); MONO % 47.6 % (2.0-8.0); PLATELET COUNT, AUTOMATED 119 10^3/uL (150-450); RED BLOOD COUNT 4.52 10^6/uL (4.30-6.10)
[2020-07-19 06:17] LABS: NEUTROPHILS # 0.4 10^3/uL (1.5-8.5)
[2020-07-19 06:39] LABS: BLOOD UREA NITROGEN 41 MG/DL (7-18); CALCIUM LEVEL 9.1 MG/DL (8.8-10.2); CARBON DIOXIDE LEVEL 29 MEQ/L (21-32); CHLORIDE LEVEL 92 MEQ/L (98-107); CREATININE FOR GFR 0.93 MG/DL (0.70-1.30); GLOMERULAR FILTRATION RATE > 60.0 (>49); GLUCOSE, FASTING 89 MG/DL (70-100); POTASSIUM SERUM 5.4 MEQ/L (3.5-5.1); SODIUM LEVEL 128 MEQ/L (136-145)
[2020-07-19] MEDS: HumaLOG INSULIN (NovoLOG) PER UNIT SC SCH ×4 (07:30→21:00)
[2020-07-19 08:00] VITALS: BP 93/57
--- NOTE | 2020-07-19 08:23 | IPNPDOC ---
Text Note Date of Service The patient was seen on 07/19/20. NOTE Subjective: Pt reports SOB has improved and removal of 3900 cc of fluid yesterday. Reports that he feels less distended after paracentesis. Denies increase in weakness. Denies headache, nausea, vomiting, diarrhea, constipation, chest pain, abd pain. Objective: VITALS: See below. GENERAL: Pt is laying in bed, alert and awake. No acute distress. Appears fatigued. HEENT: NC/AT. EOMI. Conjunctiva and lids normal. Sclera anicteric. CARDIOVASCULAR: Regular rate and rhythm. Normal S1/S2. No murmurs, rubs, or gallops appreciated. RESPIRATORY: Clear breath sounds bilaterally. Good air movement. No wheezes, rales, or rhonchi appreciated. ABDOMEN: Abd slightly distended. Soft and non-tender to palpation. No hepatosplenomegaly appreciated. EXTREMITIES: 2+ pitting edema to ankles b/l. 1/4 DP pulses b/l. SKIN: Large ecchymotic plaques to R shoulder with erythematous borders. Large black eschar to R cheek. R second to fifth toes have black discoloration, appears to be 2/2 hypoperfusion. None of these areas appear cellulitic. NEUROLOGIC: No focal deficits appreciated. Assessment/Plan: Patient is a 65 year old male with PMHx including B-cell non-Hodgkin's lymphoma, CHF, DM, paroxysmal atrial fibrillation presents with 3 weeks worsening fatigue and shortness of breath found to have severe neutropenia with possible pneumonia admitted for IV antibiotics and further work up. #SOB, likely 2/2 CHF exacerbation - Heart failure with reduced ejection fraction 35-40%, unclear if ischemic vs non-ischemic in etiology. Ladle Cleaner reports cath may be required in the future. - Echocardiogram done on 06/08/20 shows EF of 35-40% with moderate to severe pulmonary hypertension. Would likely need biventricular AICD in the future however given stage 4 lymphoma and poor prognosis with <2 year survival, pt w ould not be a candidate. - Likely 2/2 CHF exacerbation as pt CT chest does not appear changed from prior. - Lasix held yesterday due to hypotension. Pt reported feeling dizzy yesterday during PT after paracentesis. May resume Lasix today if pt BP is no longer hypotensive. - SOB could be 2/2 ascites as pt reports improvement of SOB after paracentesis yesterday. - Pt placed on 2 g sodium diet. #Ascites - During paracentesis yesterday, pt had 3900 cc removed. - SAAG score is 1.1, indicating portal hypertension as likely cause of ascites. However, given pt hx of worsening of malignancy and adenopathy, the cause of ascites is likely multifactorial - portal hypertension and worsening adenopathy causing lymphatic obstruction. - Pt given <2 year survival by oncology however, likely poor prognosis as malignant ascites usually occurs in the terminal phase of cancer. #Hyperkalemia - Likely due to holding Lasix yesterday and receiving potassium supplements. - Currently holding Lasix due to hypotension. May resume Lasix today if pt BP increases or if hyperkalemia does not resolve. Hyperkalemia likely to improve after restarting Lasix. - No changes on EKG. #Severe neutropenia - At time of admission, ANC 426 indicating severe neutropenia. No hx of fever and has been afebrile since admission. - At the time of admission, Meets 3/4 SIRS criteria with tachycardia, tachypnea, and neutropenia. qSOFA score 1, not high risk. - Likely due to recurrence of diffuse B-cell non-Hodgkin's lymphoma with infiltration into bone marrow. Pt has PET scan scheduled for later this month. Pt follows heme/onc. - Blood cultures, legionella antigen, urine strep pneumo, chlamydia pneumo have been negative. - Neutropenic precautions in place. - Will continue Doxycycline and Cefepime. #V Tach - NSVT - This is to be expected as pt has multiple cardiac abnormalities noted on echocardiogram (heart failure with EF 35-40%, L ventricle paradoxical septal motion, R ventricular pressure overload, moderate impairment of global resting systolic function, mildly dilated R heart chambers with R ventricular free wall hypokinesis, moderately severe pulmonary hypertension, moderate aortic valvular sclerosis without stenosis or significant insufficiency, mild degenerative changes of the mitral valve apparatus) - Would likely need biventricular AICD in the future however given stage 4 lymphoma and poor prognosis with <2 year survival, pt would not be a candidate. - Will continue to keep pt on tele monitoring. - Will continue to monitor Mg and K. - Starting pt on calcium gluconate to help stabilize the cardiac myocytes. #Skin lesions - Looking back at patients medical records, it appears that these skin lesions were addressed during pt admission in Jun 2020. Dermatology consulted at that time. - Skin biopsy results from L forearm showed vasculopathy with hemorrhagic necrosis. - Will have patient f/u with dermatology. - Pt has appointment with Dr. Flanagan as f/u. #Toe discoloration 2/2 PAD - Questionable underlying PAD may be contributing. - Vascular US done on 07/16/20 showed negative RLE venous duplex exam without evidence of DVT. - Consider podiatry consult for further evaluation. #Debility - Pt has increased weakness and fatigue. - Will have PT/OT on board. - Placement will be a concern for this patient as he lives alone in a trailer home. Case management on board. Pt has voiced interest in being placed at [facility]. - Added incentive spirometer today. 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 - Was treated with CHOP and intrathecal methotrexate 2 years ago on 06/03/2018. A total of 5 cycles of CHOP were given but the 6th could not be completed. - Pt has been unable to f/u with heme/onc for the past year due to insurance re asons. - Pt states that he has PET scan scheduled later this month due to possible recurrence based on bone marrow biopsy results. Evidence of a monoclonal population of cells exhibiting was detected in bone marrow. Abd lymph node core biopsy showed a mixture of T and B cells. - Pt is scheduled for a PET scan later this month to assess for recurrence. - Will have pt f/u with heme/onc following discharge. #Hx of DM, no current medications - Pt placed on consistent carb diet. - Sliding scale insulin with hypoglycemic protocol. #GERD - Continue home PPI. #Paroxysmal atrial fibrillation - Not currently on anticoagulation or medications. - Will have pt f/u with swimming pool cleaner and PCP. DVT Prophylaxis: SC Lovenox 40 mg Daily. Disposition: Pt SOB likely 2/2 CHF exacerbation so will continue diuresis as well as monitoring of fluid status. Overall prognosis is poor given recurrence of stage 4 non-Hodgkin's lymphoma with worsening adenopathy. Oncology gave pt a 2 year prognosis. Planning for placement to [facility] pending clinical improvement. Spoke with pt about hospice today. Pt is open to discussion regarding hospice so will order a hospice consult. VS,Fishbone, I+O VS, Fishbone, I+O Laboratory Tests 07/19/20 05:38 Vital Signs Date Time Temp Pulse Resp B/P (MAP) Pulse Ox O2 Delivery O2 Flow Rate FiO2 07/19/20 04:00 2.0 07/19/20 04:00 96.9 86 18 109/65 (80) 100 Nasal Cannula I&O- Last 24 Hours up to 6 AM 07/19/20 06:00 Intake Total 2240.2 ml Output Total 0 ml Balance 2240.2 ml GME ATTESTATION GME ATTESTATION My faculty preceptor for this patient encounter was physically present during the encounter and was fully available. All aspects of the patient interview, examination, medical decision making process, and medical care plan development were reviewed and approved by the faculty preceptor. The faculty preceptor is aware and concurs with the plan as stated in the body of this note and will attest to such by his/her cosignature. ATTENDING NOTE I, Sonny Logan MD, have independently examined this patient and performed my own physical exam, as well as reviewed the documentation and edited where necessary. I have discussed in detail with the resident / student the findings and plan of treatment as documented by the resident / student and edited their note. I agree with their findings and treatment plan and have edited their documentation. Vinita WILLIAMSON OMS-3 Jul 19, 2020 08:23 SONNY LOGAN MD Jul 23, 2020 09:27
[2020-07-19] MEDS ORDERED: FUROSEMIDE 20MG/2ML VIAL (J1940) IV ONE (09:05)
[2020-07-19] MEDS: OMEPRAZOLE 20 MG CAP PO SCH (09:54)
[2020-07-19] MEDS: SODIUM CHLORIDE 0.9% INJ 10 ML SYR IV SCH (09:55)
[2020-07-19] MEDS ORDERED: CALCIUM GLUCONATE 1,000 MG in D5W MINI-BAG PLUS 100 ML IV ONE (11:00)
[2020-07-19 11:45] VITALS: BP 96/60
[2020-07-19] MEDS: FOLIC ACID 1 MG in NS 50 ML IV SCH (13:45)
[2020-07-19 16:00] VITALS: BP 91/54
[2020-07-19] MEDS ORDERED: FUROSEMIDE 20MG/2ML VIAL (J1940) IV SCH (17:00)
[2020-07-19 17:40] LABS: BLOOD UREA NITROGEN 42 MG/DL (7-18); CALCIUM LEVEL 9.5 MG/DL (8.8-10.2); CARBON DIOXIDE LEVEL 29 MEQ/L (21-32); CHLORIDE LEVEL 92 MEQ/L (98-107); CREATININE FOR GFR 0.95 MG/DL (0.70-1.30); GLOMERULAR FILTRATION RATE > 60.0 (>49); GLUCOSE, FASTING 89 MG/DL (70-100); SODIUM LEVEL 127 MEQ/L (136-145)
[2020-07-19 20:00] VITALS: BP 102/59
[2020-07-20] VITALS (17 sets, daily range): BP systolic 86–114; BP diastolic 51–74
[2020-07-20] MEDS: DOXYCYCLINE HYCLATE 100 MG in D5W MINI-BAG PLUS 100 ML IV SCH ×2 (01:49→14:00)
[2020-07-20] MEDS: CEFEPIME HCL 2 GM in D5W MINI-BAG PLUS 50 ML IV SCH ×3 (03:17→18:00)
[2020-07-20 06:02] LABS: EOS % 1.8 % (0.0-3.0); HEMOGLOBIN 11.9 g/dl (13.5-17.5); LYMPH # 0.1 10^3/uL (1.5-5.0); LYMPH % 11.7 % (24.0-44.0); MEAN CORPUSCULAR HGB CONC 31.3 g/dl (32.0-36.5); MEAN CORPUSCULAR VOLUME 83.2 fl (80.0-96.0); MONO # 0.5 10^3/uL (0.0-0.8); MONO % 44.1 % (2.0-8.0); NEUTROPHILS % 41.5 % (36.0-66.0); RED BLOOD COUNT 4.57 10^6/uL (4.30-6.10); WHITE BLOOD COUNT 1.1 10^3/uL (4.0-10.0)
[2020-07-20 06:44] LABS: BLOOD UREA NITROGEN 43 MG/DL (7-18); CALCIUM LEVEL 9.7 MG/DL (8.8-10.2); CARBON DIOXIDE LEVEL 26 MEQ/L (21-32); CHLORIDE LEVEL 93 MEQ/L (98-107); CREATININE FOR GFR 0.92 MG/DL (0.70-1.30); GLOMERULAR FILTRATION RATE > 60.0 (>49); GLUCOSE, FASTING 86 MG/DL (70-100); SODIUM LEVEL 127 MEQ/L (136-145)
[2020-07-20 06:54] LABS: NEUTROPHILS # 0.5 10^3/uL (1.5-8.5); PLATELET COUNT, AUTOMATED 95 10^3/uL (150-450)
[2020-07-20] MEDS: HumaLOG INSULIN (NovoLOG) PER UNIT SC SCH ×4 (07:12→21:00)
[2020-07-20] MEDS: OMEPRAZOLE 20 MG CAP PO SCH (08:29)
[2020-07-20] MEDS: SODIUM CHLORIDE 0.9% INJ 10 ML SYR IV SCH (08:30)
[2020-07-20] MEDS: SENNA 8.6 MG TAB (SENOKOT) PO SCH ×2 (11:40→21:14)
[2020-07-20] MEDS ORDERED: MIDODRINE 2.5 MG TAB PO ONE (12:00)
--- NOTE | 2020-07-20 12:58 | IPNPDOC ---
Date Seen The patient was seen on 07/20/20. Progress Note SUBJECTIVE: Patient was seen and examined this morning. There have been no adverse events reported overnight. This morning the patient was noted to be hypotensive. Additionally he was felt to be slightly altered this morning by nursing staff. The patient himself does appear confused at times and frequently repeats himself and at times answers questions inappropriately. The patient himself denies any pain or complaints. He has been noted to be incontinent of urine. Additionally patient was noted by nursing to have ascitic fluid draining from the point of his previous paracentesis. Patient sister whom is his healthcare proxy had been contacted this morning regarded goals of care given his increased altered mental status. The patients sister Isis had stated that she would like his CODE STATUS changed to DNR/DNI. OBJECTIVE PHYSICAL EXAMINATION: VITAL SIGNS: Please see below. GENERAL: Awake, alert, and oriented to person, place, and time. Although oriented he is intermittently confused. HEENT: Atraumatic. Normocephalic. eyes are nonicteric. Trachea is midline. Mucous membranes are pink and moist. Black eschar present on right cheek unchanged from previous examination CARDIOVASCULAR: Normal S1. S2. Regular rate and rhythm with occasional ectopic beat. No clicks rubs or murmurs. RESPIRATORY: Clear breath sounds bilaterally although diminished throughout and decreased primarily in the bases. Symmetric chest expansion. No wheezes, rhonchi, or rales ABDOMINAL: Soft, slightly distended consistent with history of ascites. Bandage applied to his right lower abdomen in place with ascitic fluid drainage. On removal of bandage there is a small area with ascitic fluid draining where he had received his paracentesis previously. Abdomen is otherwise nontender. Normoactive bowel sounds throughout EXTREMITIES: 2-3 + pitting edema bilaterally although does appear improved from previously. Eschar on left forearm and right shoulder appear unchanged from previous examination NEUROLOGICAL: No focal neurological deficits. Patient does appear altered this morning. He is oriented x3 but does not answer other questions appropriately PSYCHOLOGICAL: Patient has appeared depressed and down for past several days LABORATORY DATA, IMAGING STUDIES, MICROBIOLOGY: Please see below. DVT prophylaxis ordered?: TEDs and Sequentials ASSESSMENT AND PLAN: Patient is a 65 year old male with a past medical history significant for large B-cell lymphoma s/p R-CHOP in 2019, HFrEF (LVEF 35-40%) nonischemic vs ischemic, diabetes mellitus type 2, paroxysmal atrial fibrillation, and possible relapse of his lymphoma who presented to [facility] with worsening shortness of breath and severe neutropenia and found to have large to moderate ascites. Patient has been admitted and treated for CHF exacerbation and new onset ascites. He is s/p paracentesis. PROBLEMS: 1. Hypotension -Likely multifactorial in setting of CHF and recent paracentesis. Patient had paracentesis previously with 4L ascitic fluid removed. SAAG of 1.1 suggesting likely portal hypertension. -Holding diuretics. Patient appears intravascularly depleted. Will transfuse albumin today. 50grams total. Additionally will add midodrine. 2. Altered Mental Status -Patient has intermittent confusion and altered mental status. Possibly secondary to his hypotension. -Infection/Sepsis unlikely as patient has been on antibiotics and afebrile. He is neutropenic likely 2/2 bone marrow infiltration of his B-cell lymphoma -Given patient altered mental status have rediscussed care goals with patient health care proxy and sister Isis Blanton. Decision has been made to make patient DNR/DNI currently. Patient is planned to meet with hospice consult on Wednesday at which point further recommendations for hospice and RADIOLOGIC THERAPIST status will be discussed. 3. Shortness of breath; multifactorial to CHF exacerbation and new onset ascites -Patient with history of cardiomyopathy. Possibly secondary to chemotherapy vs ischemia. LVEF last noted to be 35%. He has been referred for outpatient cardiac catheterization however given his functional status and poor prognosis has not been able to have this completed. Additionally, currently not a candidate for AICD placement or life vest given his poor prognosis and functional status -Patient has been diuresed. He has had improvement of his SOB. Paracentesis was performed with 4L ascitic fluid removed. -Diuretics currently on hold. Patient is likely intravascularly depleted s/p Paracentesis. 4. New Onset Ascites s/p paracentesis -As stated previously, patient has ascites likely related to his CHF and stage IV B-cell lymphoma. SAAG score of 1.1. -Patient is s/p paracentesis. He has remained fairly hypotensive. Will infuse albumin 50g total. 5. Thrombocytopenia -Patient noted to have thrombocytopenia. Platelet count has been trending down. He is currently not on heparin or lovenox. Possibly secondary to bone marrow infiltration from his b cell lymphoma. He is pancytopenic and this is likely the cause. Unfortunately he has been deemed not to be a candidate for bone marrow transplant due to his poor prognosis -Will order EDTA free platelets, liver profile,and INR -Patient is on antibiotics although drug associated thrombocytopenia is unlikely with doxycycline and cefepime. -Will continue to monitor platelets 6. Severe Neutropenia -Patient has severe neutropenia. ANC of 466 today. Once again this is likely secondary to bone marrow infiltration. He has not received chemotherapy since 2019. -Patient is currently on Cefepime and Doxycycline. He had a recent paracentesis and has a small hole with ascitic fluid draining. Will continue antibiotics currently until this resolves -Will avoid Bowers catheterization -Neutropenic precautions -Patient has remained afebrile 7. Hyponatremia -Hypervolemic, hypotonic hyponatremia. Patient is hypervolemic although intravascularly depleted. -Will continue to monitor 8. Elevated BUN with normal GFR -Possible pre-renal azotemia. Patient has received a paracentesis. He is therefore intravascularly depleted. He may develop renal injury due to decreased effective circulating volume. Albumin was ordered today. Plan to infuse 50g total of albumin. -Will continue to monitor 9. NSVT -Patient noted to have episodes of NSVT. This is expected in the setting of structural heart disease with a LVEF of 35%. Currently patient is not a candidate for AICD or LifeVest -After discussions with patients sister/HCP patient will be DNR/DNI. Will discontinue telemetry monitoring 10. Eschar Skin Lesion -Evaluated outpatient with biopsy demonstrating vasculopathy 11. Toe discoloration -Vascular ultrasound demonstrating adequate blood flow. -Currently stable. 12. Debility/Deconditioning -Patient is deconditioned. He has poor functional status at baseline. He has not been participating with physical therapy. Patient is encouarged to participate with PT/OT. 13. History of Stage 4 Large B-cell Lymphoma -Patient has history of triple expressive BCL-2, BCL-6, and c-myc large B- cell lymphoma. s/p R-CHOP in 2019. Patient was then lost to follow-up and has recently presented possible relapse. He has been seen by Oncology recently with recommendations for a PET scan. -CT scan obtained inpatient demonstrating worsening adenopathy. Possible lymphoma recurrence. Additionally patient has moderate to severe ascites. -Will need follow-up with Oncology however has been given a 2 year survival at best. Given severe neutropenia suggesting bone marrow infiltration and new onset ascites, prognosis is guarded 14. DVT Prophylaxis -Teds and Sequentials DISPOSITION: Overall patient has a guarded prognosis. Patient is altered this morning. His care goals were discussed with his sister/health care proxy Isis Blanton. Decision was made to proceed to DNR/DNI code status. Goals of care were addressed in addition to possible RADIOLOGIC THERAPIST and hospice options. At this time the patient will remain DO NOT RESUSCITATE/DO NOT INTUBATE. Patient is planned to meet with hospice on Wednesday with his sister. Until then will continue current treatment as outlined above. VS, I&O, 24H, Fishbone Vital Signs/I&O Vital Signs Date Time Temp Pulse Resp B/P (MAP) Pulse Ox O2 Delivery O2 Flow Rate FiO2 07/20/20 10:13 96.1 82 19 90/58 (69) 96 Nasal Cannula 2.0 I&O- Last 24 Hours up to 6 AM 07/20/20 06:00 Intake Total 1650 ml Balance 1650 ml Laboratory Data 24H LABS Laboratory Tests 2 07/19/20 12:22: Bedside Glucose (Misc Panel) 105 07/19/20 17:00: Anion Gap 6L, Glomerular Filtration Rate > 60.0, Calcium Level 9.5 07/19/20 17:46: Bedside Glucose (Misc Panel) 88 07/19/20 22:00: Bedside Glucose (Misc Panel) 99 07/20/20 05:40: Immature Granulocyte % (Auto) 0.9, Neutrophils (%) (Auto) 41.5, Lymphocytes (%) (Auto) 11.7L, Monocytes (%) (Auto) 44.1H, Eosinophils (%) (Auto) 1.8, Basophils (%) (Auto) 0.0, Neutrophils # (Auto) 0.5L, Lymphocytes # (Auto) 0.1L, Monocytes # (Auto) 0.5, Eosinophils # (Auto) 0.0, Basophils # (Auto) 0.0, Nucleated Red Blood Cells % (auto) 0.0, Immature Platelet Fraction 4.3, Anion Gap 8, Glomerular Filtration Rate > 60.0, Calcium Level 9.7 07/20/20 08:41: Bedside Glucose (Misc Panel) 88 07/20/20 10:15: Ammonia 33H 07/20/20 11:11: Bedside Glucose (Misc Panel) 86 CBC/BMP Laboratory Tests 07/19/20 17:00 07/20/20 05:40 Microbiology Microbiology 07/17/20 Acid Fast Stain, Received Pending 07/17/20 Mycobacterial Culture, Received Pending 07/17/20 Fungal Smear, Received Pending 07/17/20 Fungal Culture, Received Pending 07/17/20 Gram Stain - Final, Complete 07/17/20 Body Fluid Culture - Final, Complete 07/16/20 Blood Culture - Preliminary, Resulted No Growth after 72 hours. All specime... 07/15/20 Blood Culture - Preliminary, Resulted No Growth after 72 hours. All specime... GME ATTESTATION GME ATTESTATION My faculty preceptor for this patient encounter was physically present during the encounter and was fully available. All aspects of the patient interview, examination, medical decision making process, and medical care plan development were reviewed and approved by the faculty preceptor. The faculty preceptor is aware and concurs with the plan as stated in the body of this note and will attest to such by his/her cosignature. ATTENDING NOTE I have seen and examined the patient. I agree with the findings and plan or care as documented in the residents note. GIBSON SANCHEZ DO Jul 20, 2020 12:57 COREY ULRICH MD Aug 05, 2020 22:46
[2020-07-20 14:18] LABS: PLTBLUE- EDTA FREE CALC 75 K/mm3 (172-450)
[2020-07-20 14:28] LABS: INR 1.25; PROTHROMBIN TIME 15.9 SECONDS (12.5-14.3)
[2020-07-20 14:36] LABS: ALBUMIN 2.6 GM/DL (3.2-5.2); BILIRUBIN,DIRECT 0.3 MG/DL (0.0-0.2); BILIRUBIN,TOTAL 0.6 MG/DL (0.2-1.0); TOTAL PROTEIN 4.7 GM/DL (6.4-8.2)
[2020-07-20 15:01] LABS: PLTBLUE- EDTA FREE MACHINE 68 10^3/uL (172-450)
[2020-07-20] MEDS: MIDODRINE 2.5 MG TAB PO SCH (15:56)
[2020-07-21] VITALS: BP 105/66
[2020-07-21] MEDS ORDERED: DEXTROSE 50% 50 ML SYRINGE IV STA (01:06)
[2020-07-21] MEDS: DOXYCYCLINE HYCLATE 100 MG in D5W MINI-BAG PLUS 100 ML IV SCH (01:14)
[2020-07-21 04:00] VITALS: BP 84/52
[2020-07-21 04:48] LABS: EOS % 1.4 % (0.0-3.0); HEMATOCRIT 33.7 % (42.0-52.0); HEMOGLOBIN 10.5 g/dl (13.5-17.5); LYMPH # 0.1 10^3/uL (1.5-5.0); LYMPH % 10.8 % (24.0-44.0); MEAN CORPUSCULAR HEMOGLOBIN 25.7 pg (27.0-33.0); MEAN CORPUSCULAR HGB CONC 31.2 g/dl (32.0-36.5); MEAN CORPUSCULAR VOLUME 82.6 fl (80.0-96.0); MONO # 0.3 10^3/uL (0.0-0.8); MONO % 40.5 % (2.0-8.0); NEUTROPHILS % 47.3 % (36.0-66.0); RED BLOOD COUNT 4.08 10^6/uL (4.30-6.10)
[2020-07-21 05:16] LABS: NEUTROPHILS # 0.4 10^3/uL (1.5-8.5); PLATELET COUNT, AUTOMATED 68 10^3/uL (150-450); WHITE BLOOD COUNT 0.7 10^3/uL (4.0-10.0)
[2020-07-21 05:23] LABS: BLOOD UREA NITROGEN 46 MG/DL (7-18); CALCIUM LEVEL 9.5 MG/DL (8.8-10.2); CARBON DIOXIDE LEVEL 26 MEQ/L (21-32); CHLORIDE LEVEL 96 MEQ/L (98-107); CREATININE FOR GFR 1.03 MG/DL (0.70-1.30); GLOMERULAR FILTRATION RATE > 60.0 (>49); GLUCOSE, FASTING 85 MG/DL (70-100); POTASSIUM SERUM 4.5 MEQ/L (3.5-5.1); SODIUM LEVEL 129 MEQ/L (136-145)
[2020-07-21 07:17] VITALS: BP 91/55
[2020-07-21] MEDS: HumaLOG INSULIN (NovoLOG) PER UNIT SC SCH ×2 (07:30→11:44)
[2020-07-21] MEDS: MIDODRINE 2.5 MG TAB PO SCH ×3 (08:00→15:57)
[2020-07-21] MEDS: OMEPRAZOLE 20 MG CAP PO SCH ×2 (08:53→08:56)
[2020-07-21] MEDS: SENNA 8.6 MG TAB (SENOKOT) PO SCH ×2 (08:53→08:57)
[2020-07-21] MEDS: SODIUM CHLORIDE 0.9% INJ 10 ML SYR IV SCH (09:12)
[2020-07-21] MEDS ORDERED: D5W 1,000 ML IV SCH (09:45)
[2020-07-21 12:00] VITALS: BP 101/59
[2020-07-21] MEDS ORDERED: HYOSCYAMINE SULFATE 0.125 MG SUBL TABLET PO PRN (16:15)
--- NOTE | 2020-07-21 17:54 | IPNPDOC ---
Text Note Date of Service The patient was seen on 07/21/20. NOTE SUBJECTIVE: Patient awake however not talking. He shook his head yes or no to questions. Refused oral intake. Sugars low received IV dextrose. Continues to have ascitic fluid leakage from the paracentesis opening. Becoming more and more lethargic through out the day. Discussed goals of care with sister at bedside and wanted him to be transitioned into FINISHED CLOTH CHECKER. She wants to take him home with home hospice. PHYSICAL EXAMINATION: VITAL SIGNS: Please see below. GENERAL: Intermittently awake, more lethargic today. HEENT: Atraumatic. Normocephalic. eyes are nonicteric. Trachea is midline. Mucous membranes dry, Black eschar present on right cheek. CARDIOVASCULAR: Normal S1. S2. Regular rate and rhythm. No clicks rubs or murmurs. RESPIRATORY: Clear breath sounds bilaterally, diminished at the bases. No wheezes, rhonchi, or rales ABDOMINAL: Soft, Nontender, slightly distended, ascites present, bowel sounds present. EXTREMITIES: 2+ pitting edema bilaterally, some mottling present in botht he legs. . Eschar on left forearm and right shoulder appear unchanged from previous examination NEUROLOGICAL: No focal neurological deficits LABORATORY DATA, IMAGING STUDIES, MICROBIOLOGY: Please see below. ASSESSMENT AND PLAN: Patient is a 65 year old male with a past medical history significant for large B-cell lymphoma s/p R-CHOP in 2019, HFrEF (LVEF 35-40%) nonischemic vs ischemic, diabetes mellitus type 2, paroxysmal atrial fibrillation, and relapse of NHL who presented to [facility] with worsening shortness of breath and severe neutropenia and found to have ascites. Patient has been admitted and treated for CHF exacerbation and new onset ascites. He is s/p paracentesis x 2 . He has been becoming more and more encephalopathic, also his blood pressures have been low with no response to albumine and midodrine. He has finished 5 days of cefepime and doxycycline. Culures have been negative, His oral intake has been going down with no intake in the past 24 hours so his sugars have been dropping. Goals of care again discussed with HCP sister Isis Blanton and she wanted him to be transitioned hime to FINISHED CLOTH CHECKER status with the goal to take him home with home hospice as soon as can be set up. FINISHED CLOTH CHECKER status morphine/ ativan prn no labs Recurrent NHL with ascites, abdominal lymphadenopathy and pancytopenia Bone marrow bx from Jun shows Abnormal B cell lymphoproliferative process. H/o Large B-cell Lymphoma diagnosed in 2018 Patient has history of triple expressive BCL-2, BCL-6, and c-myc large B-cell lymphoma. s/p R-CHOP in 2019. Patient was then lost to follow-up and has recently presented with relapse. However the limited flow cytometry this time shows different cells. Pancytopenia Severe Neutropenia, thrombocytopenia, anemia finished 5 days of antibiotics cefepime and doxycycline cultures negative No infection This is likely due to bone marrow involvement by lymphoproliferative disorder. Hypotension Likely multifactorial in setting of systolic CHF and recent paracentesis given albumin and midodrine Acute metabolic encephalopathy probably due to progressing cancer. Systolic CHF exacerbation/EF of 35% ischemic vs nonischemic cardiomyopathy Ascites s/p paracentesis As stated previously, patient has ascites likely related to his CHF and stage IV B-cell lymphoma. Patient is s/p paracentesis. He has remained fairly hypotensive. Will infuse albumin 50g total. Hyponatremia hypervolemic. Several Skin lesions with eschar. Evaluated outpatient with biopsy demonstrating hemorrhagic vasculopathy Toe discoloration /mottling of the skin of the legs Vascular ultrasound demonstrating adequate blood flow. VS,Fishbone, I+O VS, Fishbone, I+O Laboratory Tests 07/21/20 04:33 Vital Signs Date Time Temp Pulse Resp B/P (MAP) Pulse Ox O2 Delivery O2 Flow Rate FiO2 07/21/20 12:00 96.1 82 19 101/59 (73) 94 Nasal Cannula 2.0 I&O- Last 24 Hours up to 6 AM 07/21/20 06:00 Intake Total 570.0 ml Balance 570.0 ml COREY ULRICH MD Jul 21, 2020 12:41
[2020-07-22] MEDS: MORPHINE 10MG/0.5ML ORAL CONCENTRATE SOLUTION U/D SL PRN (04:49)
[2020-07-22] MEDS: LORazepam 1 MG TAB PO PRN (08:32)
[2020-07-22] MEDS: SODIUM CHLORIDE 0.9% INJ 10 ML SYR IV SCH (08:38)
--- NOTE | 2020-07-22 10:05 | IPNPDOC ---
Text Note Date of Service The patient was seen on 07/22/20. NOTE SUBJECTIVE: Patient wakes up easily when called however not talking. He shakes his head , moves his arms and legs seems to understand but is not talking. was able to suck on some sponges. PHYSICAL EXAMINATION: VITAL SIGNS: Please see below. GENERAL: Opens eyes when called, but shakes his head when water food is offered. Spontaneously moves his arma and legs but does not talk. Comfortable. 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 ASSESSMENT AND PLAN: Patient is a 65 year old male with a past medical history significant for large B-cell lymphoma s/p R-CHOP in 2019, HFrEF (LVEF 35-40%) nonischemic vs ischemic, diabetes mellitus type 2, paroxysmal atrial fibrillation, and relapse of NHL who presented to [facility] with worsening shortness of breath and severe neutropenia and found to have ascites. Patient has been admitted and treated for CHF exacerbation and new onset ascites. He is s/p paracentesis x 2 . He has been becoming more and more encephalopathic, also his blood pressures have been low with no response to albumine and midodrine. He has finished 5 days of cefepime and doxycycline. Culures have been negative, His oral intake has been going down with no intake in the past 24 hours so his sugars have been dropping. Goals of care again discussed with HCP sister Isis Blanton and she wanted him to be transitioned hime to ONLINE PROJECT MANAGER status with the goal to take him home with home hospice as soon as can be set up. ONLINE PROJECT MANAGER status morphine/ ativan prn no labs Recurrent NHL with bone marrow involvement with ascites, abdominal lymphadenopathy and pancytopenia H/O Large B cell lymphoma in 2019 Pancytopenia Severe Neutropenia, thrombocytopenia, anemia This is likely due to bone marrow involvement by lymphoproliferative disorder. Acute metabolic encephalopathy probably due to progressing cancer. Systolic CHF exacerbation/EF of 35% ischemic vs nonischemic cardiomyopathy Ascites s/p paracentesis As stated previously, patient has ascites likely related to his CHF and stage IV B-cell lymphoma. Several Skin lesions with eschar. Evaluated outpatient with biopsy demonstrating hemorrhagic vasculopathy VS,Fishbone, I+O VS, Fishbone, I+O Vital Signs Date Time Temp Pulse Resp B/P (MAP) Pulse Ox O2 Delivery O2 Flow Rate FiO2 07/22/20 09:24 2.0 07/21/20 12:00 96.1 82 19 101/59 (29) 94 Room Air I&O- Last 24 Hours up to 6 AM 07/22/20 06:00 Intake Total 0 ml Balance 0 ml COREY ULRICH MD Jul 22, 2020 10:05
[2020-07-23] MEDS: LORazepam 1 MG TAB PO PRN ×2 (05:49→17:29)
[2020-07-23] MEDS: SODIUM CHLORIDE 0.9% INJ 10 ML SYR IV SCH (09:02)
--- NOTE | 2020-07-23 10:47 | IPNPDOC ---
Text Note Date of Service The patient was seen on 07/23/20. NOTE SUBJECTIVE: Patient is awake but does not talk. He shakes his head , moves his arms and legs seems to understand but is not talking. PHYSICAL EXAMINATION: VITAL SIGNS: Please see below. GENERAL: awake but communicative but Comfortable. 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 ASSESSMENT AND PLAN: Patient is a 65 year old male with a past medical history significant for large B-cell lymphoma s/p R-CHOP in 2019, HFrEF (LVEF 35-40%) nonischemic vs ischemic, diabetes mellitus type 2, paroxysmal atrial fibrillation, and relapse of NHL who presented to [facility] with worsening shortness of breath and severe neutropenia and found to have ascites. Patient has been admitted and treated for CHF exacerbation and new onset ascites. He is s/p paracentesis x 2 . He has been becoming more and more encephalopathic, also his blood pressures have been low with no response to albumine and midodrine. He has finished 5 days of cefepime and doxycycline. Cultures have been negative, His oral intake has been going down with no intake in the past 24 hours so his sugars have been dropping. Goals of care again discussed with HCP sister Isis Blanton and she wanted him to be transitioned hime to MACHINE RUG CLEANER status with the goal to take him home with home hospice as soon as can be set up. MACHINE RUG CLEANER status morphine/ ativan prn no labs Recurrent NHL with bone marrow involvement with ascites, abdominal lymphadenopathy and pancytopenia H/O Large B cell lymphoma in 2019 Pancytopenia Severe Neutropenia, thrombocytopenia, anemia This is likely due to bone marrow involvement by lymphoproliferative disorder. Acute metabolic encephalopathy probably due to progressing cancer. Systolic CHF exacerbation/EF of 35% ischemic vs nonischemic cardiomyopathy Several Skin lesions with eschar. Evaluated outpatient with biopsy demonstrating hemorrhagic vasculopathy VS,Fishbone, I+O VS, Fishbone, I+O Vital Signs Date Time Temp Pulse Resp B/P (MAP) Pulse Ox O2 Delivery O2 Flow Rate FiO2 07/23/20 08:45 2.0 07/21/20 12:00 96.1 82 19 101/59 (73) 94 Room Air I&O- Last 24 Hours up to 6 AM 07/23/20 06:00 Intake Total 50 ml Balance 50 ml COREY ULRICH MD Jul 23, 2020 10:47
[2020-07-23] MEDS: MORPHINE 10MG/0.5ML ORAL CONCENTRATE SOLUTION U/D SL PRN (14:02)
[2020-07-24] MEDS: MORPHINE 10MG/0.5ML ORAL CONCENTRATE SOLUTION U/D SL PRN (09:06)
[2020-07-24] MEDS: LORazepam 1 MG TAB PO PRN ×2 (11:52→22:11)
[2020-07-25] MEDS: MORPHINE 10MG/0.5ML ORAL CONCENTRATE SOLUTION U/D SL PRN ×2 (09:10→11:54)
[2020-07-25] MEDS ORDERED: ATIV1TAB10 PO (10:11)
[2020-07-25] MEDS ORDERED: HYOS125TA PO (10:11)
[2020-07-25] MEDS ORDERED: MORP20SO3 PO (10:11)
--- NOTE | 2020-08-06 01:07 | DS.PDOC ---
Discharge Summary General Date of Admission Jul 16, 2020 at 01:05 Date of Discharge 07/25/20 Discharge Summary PROCEDURES PERFORMED DURING STAY: Paracentesis x 2 DISCHARGE DIAGNOSES: Recurrent NHL with bone marrow involvement Pancytopenia Acute metabolic encephalopathy Systolic CHF/EF of 35% Ischemic vs nonischemic cardiomyopathy Hypotension Hemorrhagic vasculopathy of the skin. diabetes mellitus paroxysmal atrial fibrillation COMPLICATIONS/CHIEF COMPLAINT: Pneumonia,Syncope And Collapse. HOSPITAL COURSE: Patient is a 65 year old male with a past medical history significant for large B-cell lymphoma s/p R-CHOP in 2019, HFrEF (LVEF 35-40%) nonischemic vs ischemic, diabetes mellitus type 2, paroxysmal atrial fibrillation, and relapse of NHL who presented to [facility] with worsening shortness of breath and severe neutropenia and found to have ascites. Patient has been admitted and treated for CHF exacerbation and new onset ascites. He is s/p paracentesis x 2 . He has been becoming more and more encephalopathic, also his blood pressures have been low with no response to albumin and midodrine. He has finished 5 days of cefepime and doxycycline. Cultures have been negative, His oral intake has been going down with no intake in the past 24 hours so his sugars have been dropping. Goals of care again discussed with HCP sister Isis Blanton and she wanted him to be transitioned to LOOKBACK COORDINATOR status with the goal to take him home with home hospice vs hospice house as soon as can be set up. LOOKBACK COORDINATOR status morphine/ ativan prn being discharged to hospice house. Recurrent NHL with bone marrow involvement with ascites, abdominal lymphadenopathy and pancytopenia H/O Large B cell lymphoma in 2019 Pancytopenia Severe Neutropenia, thrombocytopenia, anemia This is likely due to bone marrow involvement by lymphoproliferative disorder. Acute metabolic encephalopathy due to progressing cancer. Systolic CHF exacerbation/EF of 35% ischemic vs nonischemic cardiomyopathy resolved Several Skin lesions with eschar. hemorrhagic vasculopathy DISCHARGE MEDICATIONS: Please see below. ALLERGIES: Please see below. PHYSICAL EXAMINATION ON DISCHARGE: GENERAL: comfortable, mostly lethargic sometimes awake. Rest of physical exam deferred patient being LOOKBACK COORDINATOR. ACTIVITY: [As tolerated]. DIET: As tolerated DISPOSITION: 50 [facility]ospice Home. TIME SPENT ON DISCHARGE: 31 minutes. Vital Signs/I&Os Vital Signs Label Value Date Time Patient Temperature 96.1 degrees F 07/21/20 1200 Temperature Source Temporal 07/21/20 1200 Respiratory Rate 19 bpm 07/21/20 1200 Blood Pressure Assessment 101/59 (73) 07/21/20 1200 Bedside Pulse Oximetry 94 % 07/21/20 1200 Discharge Medications Scheduled PRN Hyoscyamine Sulfate (Hyoscyamine Sulfate) 0.125 Mg Tab.subl, 0.125 MG PO Q4HP PRN for TERMINAL SECRETIONS Use sublingually if unable to swallow Lorazepam (Ativan) 0.5 Mg Tablet, 0.5 MG PO Q4HP PRN for ANXIETY/AGITATION Use sublingually if unable to swallow Morphine Sulfate (Morphine Sulfate) 100 Mg/5 Ml Solution, 0.25-1 ML PO Q2H PRN for PAIN OR DYSPNEA Use sublingually if unable to swallow Allergies Coded Allergies: No Known Allergies (Unverified , 01/18/19) COREY ULRICH MD Aug 06, 2020 01:07
== END 2020-07-25 13:00 | disposition hospice, home (50) | DRG 691 ==
LOC: M ED 22:12 → M ED INP 07-16 01:05 → ENRESERV 07-16 01:52 → M PCU 07-16 02:46 → M MS5PR 07-21 23:32
PROVIDERS: ADMIT Family Medicine; ATTEND Internal Medicine Nephrology
PROC: 0W9G3ZZ Drainage of Peritoneal Cavity, Percutaneous Approach (ICD-10-PCS; principal; 2020-07-18 08:30)
DX: C85.10 Unspecified B-cell lymphoma, unspecified site (principal); I50.23 Acute on chronic systolic (congestive) heart failure; G93.41 Metabolic encephalopathy; K76.6 Portal hypertension; I47.2 Ventricular tachycardia; R18.0 Malignant ascites; D61.818 Other pancytopenia; E11.51 Type 2 diabetes mellitus with diabetic peripheral angiopathy without gangrene; I95.9 Hypotension, unspecified; M31.9 Necrotizing vasculopathy, unspecified; R65.10 Systemic inflammatory response syndrome (SIRS) of non-infectious origin without acute organ dysfunction; I11.0 Hypertensive heart disease with heart failure; I48.0 Paroxysmal atrial fibrillation; E87.5 Hyperkalemia; Z51.5 Encounter for palliative care